=== PATIENT | female | born 1970 | race Caucasian/White ===

== ENCOUNTER → 2017-02-13 | Outpatient (CLI) | payer SELFPAY ==
--- NOTE | 2017-02-18 18:25 | Diagnostic Imaging Report ---
Bilateral screening mammogram The current study was also evaluated with a Computer Aided Detection (CAD) system. Indication: Screening. No current complaints stated on the questionnaire. COMPARISON: 01/18/2013. FINDINGS: The breasts are composed of scattered fibroglandular densities. There are scattered benign-appearing calcifications and oil cysts are seen slightly more prominent compared to the prior studies. No suspicious cluster of calcification. No developing mass or architectural distortion. IMPRESSION: Increasing benign-appearing calcifications. Annual screening mammogram recommended. ACR BI-RADS Category 2: Benign findings. Result letter will be mailed to the patient. Note: At least 10% of breast cancer is not imaged by mammography. Dictated by: Dictated on workstation # [id number]
== END ==
LOC: RAD 07:28
PROVIDERS: ATTEND Family Medicine
DX: Z12.31 Encounter for screening mammogram for malignant neoplasm of breast (principal)
CPT/HCPCS: 77067

== ENCOUNTER → 2017-03-17 | Outpatient (CLI) | payer BC ==
[2017-03-17 08:42] LABS: BASOPHILS % (AUTO) 0 % (0-10); EOSINOPHILS # (AUTO) 0.1 10^3/uL (0.0-0.3); EOSINOPHILS % (AUTO) 1 % (0-10); LYMPHOCYTES # (AUTO) 1.6 X 10^3 (1.0-4.0); LYMPHOCYTES % (AUTO) 37 % (12-44); MEAN CORPUSCULAR HEMOGLOBIN 30 PG (25-34); MEAN CORPUSCULAR HGB CONC 36 G/DL (32-36); MEAN CORPUSCULAR VOLUME 85 FL (80-99); MEAN PLATELET VOLUME 9.5 FL (7.4-10.4); MONOCYTES # (AUTO) 0.4 X 10^3 (0.0-1.0); MONOCYTES % (AUTO) 10 % (0-12); NEUTROPHILS # (AUTO) 2.3 X 10^3 (1.8-7.8); NEUTROPHILS % (AUTO) 52 % (42-75); PLATELET COUNT 282 10^3/uL (130-400); RED CELL DISTRIBUTION WIDTH 12.6 % (10.0-14.5); WHITE BLOOD COUNT 4.4 10^3/uL (4.3-11.0)
[2017-03-17 08:59] LABS: ALANINE AMINOTRANSFERASE 26 U/L (0-55); ALBUMIN 4.3 G/DL (3.2-4.5); ANION GAP 9 MMOL/L (5-14); ASPARTATE AMINO TRANSFERASE 17 U/L (5-34); BILIRUBIN,TOTAL 0.5 MG/DL (0.1-1.0); BLOOD UREA NITROGEN 16 MG/DL (7-18); BUN/CREATININE RATIO 18; CALCIUM 9.1 MG/DL (8.5-10.1); CARBON DIOXIDE 21 MMOL/L (21-32); CHLORIDE 111 MMOL/L (98-107); CHOLESTEROL 214 MG/DL (< 200); CREATININE SERUM 0.87 MG/DL (0.60-1.30); DIRECT LDL 120 MG/DL (1-129); GFR ESTIMATED > 60; GLUCOSE 122 MG/DL (70-105); POTASSIUM 3.9 MMOL/L (3.6-5.0); SODIUM 141 MMOL/L (135-145); TOTAL PROTEIN 7.3 G/DL (6.4-8.2); TRIGLYCERIDES 181 MG/DL (<150); VLDL CHOLESTEROL 36 MG/DL (5-40); hs C REACTIVE PROTEIN 0.06 MG/DL (0.00-0.50)
[2017-03-17 09:06] LABS: ERYTHROCYTE SEDIMENTATION RATE 8 MM/HR (0-20)
[2017-03-17 09:19] LABS: THYROID STIMULATING HORMONE 1.36 UIU/ML (0.35-4.94)
== END ==
LOC: LAB 08:25
PROVIDERS: ATTEND Nurse Practitioner Family
DX: Z00.00 Encounter for general adult medical examination without abnormal findings (principal); R22.1 Localized swelling, mass and lump, neck
CPT/HCPCS: 36415; 80053; 80061; 84443; 85025; 85652; 86141

== ENCOUNTER → 2017-09-01 | Outpatient (CLI) | payer BC ==
--- NOTE | 2017-09-01 15:33 | Diagnostic Imaging Report ---
INDICATION: Ballard splints. COMPARISON: None. FINDINGS: Four views of the left tibia and fibula show no fractures, dislocations, or other acute bony abnormalities identified. Joint spaces are well maintained throughout. The soft tissues appear unremarkable. No radiopaque foreign bodies are identified. IMPRESSION: No acute fractures or dislocations of the left tibia or fibula. Dictated by: Dictated on workstation # [id number]
== END ==
LOC: RAD 15:02
PROVIDERS: ATTEND Nurse Practitioner Family
DX: M79.662 Pain in left lower leg (principal)
CPT/HCPCS: 73590

== ENCOUNTER → 2017-09-10 | Outpatient (CLI) | payer BC ==
--- NOTE | 2017-09-10 15:39 | Diagnostic Imaging Report ---
EXAMINATION: Left lower extremity duplex venous ultrasound. TECHNIQUE: DVT protocol. Multiple sonographic images with color Doppler and waveform interrogation were performed of the left lower extremity veins with compression and augmentation maneuvers. INDICATION: Left leg swelling and pain. FINDINGS: The left lower extremity veins from the groin to below the knee veins were examined with normal color-flow, compressibility and waveform demonstrated. The great saphenous vein is patent. Images over the lower leg anteriorly at the area of swelling and pain demonstrate no definite abnormality. IMPRESSION: No evidence of DVT in the left lower extremity. Dictated by: Dictated on workstation # [id number]
== END ==
LOC: RAD 15:02
PROVIDERS: ATTEND Nurse Practitioner Family
DX: M79.89 Other specified soft tissue disorders (principal); M79.605 Pain in left leg

== ENCOUNTER → 2018-02-23 | Outpatient (CLI) | payer BC ==
[~2018-02-23] MED LIST: ALPR0.5T7; ESCI10TA55; HYDR-757 PO; METR500T21 PO; TOPI25TA10; ZOLP10TA5
[2018-02-23 06:52] LABS: BASOPHILS % (AUTO) 0 % (0-10); EOSINOPHILS # (AUTO) 0.1 10^3/uL (0.0-0.3); EOSINOPHILS % (AUTO) 2 % (0-10); HEMATOCRIT 37 % (35-52); HEMOGLOBIN 13.4 G/DL (11.5-16.0); LYMPHOCYTES # (AUTO) 1.4 X 10^3 (1.0-4.0); LYMPHOCYTES % (AUTO) 36 % (12-44); MEAN CORPUSCULAR HEMOGLOBIN 31 PG (25-34); MEAN CORPUSCULAR HGB CONC 36 G/DL (32-36); MEAN CORPUSCULAR VOLUME 84 FL (80-99); MEAN PLATELET VOLUME 9.6 FL (7.4-10.4); MONOCYTES # (AUTO) 0.4 X 10^3 (0.0-1.0); MONOCYTES % (AUTO) 9 % (0-12); NEUTROPHILS # (AUTO) 2.1 X 10^3 (1.8-7.8); NEUTROPHILS % (AUTO) 53 % (42-75); PLATELET COUNT 283 10^3/uL (130-400); WHITE BLOOD COUNT 3.9 10^3/uL (4.3-11.0)
== END ==
LOC: LAB 06:34
PROVIDERS: ATTEND Nurse Practitioner Family
DX: N92.0 Excessive and frequent menstruation with regular cycle (principal)
CPT/HCPCS: 36415; 85025

== ENCOUNTER → 2018-03-01 | Outpatient (CLI) | payer BC ==
--- NOTE | 2018-03-01 17:10 | Diagnostic Imaging Report ---
EXAMINATION: Ultrasound pelvis. DATE: March 01, 2018. INDICATION: 47-year-old female, menorrhagia. COMPARISON: None. TECHNIQUE: A sonogram of the pelvis was performed utilizing transabdominal and endovaginal approaches assessing grayscale appearance and color Doppler flow. FINDINGS: The uterus measures 9.6 x 6.0 x 4.9 cm. No focal uterine masses are seen. The endometrium measures 1.4 cm in diameter. The right and left ovaries are not well seen. There is no demonstrated adnexal mass. No free pelvic fluid is demonstrated. IMPRESSION: 1. Endometrial thickness measuring 14 mm. Recommend correlation with timing of menstrual cycle. 2. The right and left ovaries are not well seen. 3. No demonstrated adnexal mass. 4. No free pelvic fluid. Dictated by: Dictated on workstation # [id number]
== END ==
LOC: RAD 15:34
PROVIDERS: ATTEND Nurse Practitioner Family
DX: N92.1 Excessive and frequent menstruation with irregular cycle (principal); R93.8 Abnormal findings on diagnostic imaging of other specified body structures
CPT/HCPCS: 36415; 76830; 76856; 84443

== ENCOUNTER 2018-03-18 10:16 | Emergency (ER) | payer BC ==
[~2018-03-18] VITALS: Ht 170.2 cm; Wt 95.3 kg
[2018-03-18] MEDS ORDERED: ALPR0.5T7 (10:39)
[2018-03-18] MEDS ORDERED: ESCI10TA55 (10:39)
[2018-03-18] MEDS ORDERED: TOPI25TA10 (10:39)
[2018-03-18] MEDS ORDERED: ZOLP10TA5 (10:39)
[2018-03-18 10:41] LABS: BILIRUBIN,URINE NEGATIVE (NEGATIVE); COLOR,URINE YELLOW; GLUCOSE, URINE (UA) NEGATIVE (NEGATIVE); KETONES,URINE NEGATIVE (NEGATIVE); LEUKOCYTE ESTERASE ,URINE 3+ (NEGATIVE); NITRITE,URINE NEGATIVE (NEGATIVE); PH,URINE 6.5 (5-9); PROTEIN,URINE NEGATIVE (NEGATIVE); UROBILINOGEN,URINE NORMAL (NORMAL)
[2018-03-18 10:50] LABS: BACTERIA,URINE FEW /HPF; CLARITY,URINE CLEAR; TRICHOMONAS,URINE FEW /HPF
--- NOTE | 2018-03-18 10:54 | ED Back Pain ---
General Chief Complaint: Back Problems Stated Complaint: LEFT FLANK PAIN Nursing Triage Note: ARRIVED VIA AMB TO ROOM 10. COMPLAINS OF LEFT LOWER BACK PAIN SINCE 0800. THINKS IT IS A KIDNEY ISSUE. 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 Nursing Sepsis Screen: No Definite Risk Source of Information: Patient Exam Limitations: No Limitations History of Present Illness Date Seen by Provider: Mar 18, 2018 Time Seen by Provider: 10:53 Initial Comments to ER with reports a sudden onset left low back pa 9 AM this morning.she is unable to lay flat due to the pain. She took ibuprofen about 45 minutes prior to arrival with no relief.she's never had this before. She states it hurts worse to take a deep breath. Location: Paraspinous Muscles Timing/Duration: 4-6 Hours Severity: Moderate Associated Symptoms: lower back pain Allergies and Home Medications Allergies Uncoded Allergies: NOVACAINE (Allergy, Mild, 02/07/12) NOT TO TAKE BECAUSE OF VSD Home Medications Hydrocodone/Acetaminophen 1 Each Tablet, 1 EACH PO Q4H PRN for PAIN-MILD TO MODERATE Prescribed by: DAVY MORA on 03/18/18 1157 Metronidazole 500 Mg Tablet, 500 MG PO BID Prescribed by: DAVY MORA on 03/18/18 1157 Patient Home Medication List Home Medication List Reviewed: Yes Constitutional: see HPI EENTM: see HPI Respiratory: no symptoms reported Cardiovascular: no symptoms reported Genitourinary: no symptoms reported Musculoskeletal: see HPI, back pain Skin: no symptoms reported Psychiatric/Neurological: No Symptoms Reported Past Cdjckft-Smffhk-Oyvxww Hx Patient Social History Alcohol Use: Denies Use Recreational Drug Use: No Smoking Status: Never a Smoker Recent Foreign Travel: No Contact w/Someone Who Travel: No Recent Infectious Disease Expo: No Recent Hopitalizations: No Past Medical History Appendectomy Respiratory: No 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) Genitourinary: No Gastrointestinal: No Musculoskeletal: No Endocrine: No HEENT: No Cancer: No Psychosocial: No Integumentary: No Physical Exam Vital Signs Vital Signs - First Documented 03/18/18 10:25 Temp 98.0 Pulse 65 Resp 18 B/P (MAP) 190/97 (128) Capillary Refill : Less Than 3 Seconds General Appearance: No Apparent Distress, WD/WN HEENT: PERRL/EOMI, TMs Normal Neck: Full Range of Motion, Normal Inspection Respiratory: Normal Breath Sounds, No Accessory Muscle Use, No Respiratory Distress Gastrointestinal: Normal Bowel Sounds, Non Tender, Soft Back: Normal Inspection Extremity: Normal Capillary Refill, Normal Inspection Neurologic/Psychiatric: Alert, Oriented x3, No Motor/Sensory Deficits Skin: Normal Color, Warm/Dry Progress/Results/Core Measures Results/Orders Lab Results Laboratory Tests Test 03/18/18 10:35 Range/Units Urine Color YELLOW Urine Clarity CLEAR Urine pH 6.5 5-9 Urine Specific [place] 1.015 L 1.016-1.022 Urine Protein NEGATIVE NEGATIVE Urine Glucose (UA) NEGATIVE NEGATIVE Urine Ketones NEGATIVE NEGATIVE Urine Nitrite NEGATIVE NEGATIVE Urine Bilirubin NEGATIVE NEGATIVE Urine Urobilinogen NORMAL NORMAL MG/DL Urine Leukocyte Esterase 3+ H NEGATIVE Urine RBC (Auto) NEGATIVE NEGATIVE Urine RBC NONE /HPF Urine WBC 2-5 /HPF Urine Squamous Epithelial Cells 10-25 H /HPF Urine Crystals NONE /LPF Urine Bacteria FEW H /HPF Urine Casts NONE /LPF Urine Mucus NEGATIVE /LPF Urine Trichomonas FEW H /HPF Urine Culture Indicated NO Urine Test NEGATIVE NEGATIVE My Orders Orders - DAVY MORA APRN Ct Abd/Pelvis Wo(Kidney Stone) (03/18/18 10:50) Ketorolac Injection (Toradol Injection) (03/18/18 11:00) Orphenadrine Injection (Norflex Injectio (03/18/18 11:00) Hcg,Qualitative Urine (03/18/18 11:00) Medications Given in ED Current Medications Medications Dose Ordered Sig/Evert Route Start Time Stop Time Status Last Admin Dose Admin Ketorolac Tromethamine 60 mg ONCE ONCE IM 03/18/18 11:00 03/18/18 11:01 DC 03/18/18 11:00 60 MG Orphenadrine Citrate 30 mg ONCE ONCE IM 03/18/18 11:00 03/18/18 11:01 DC 03/18/18 11:00 30 MG Vital Signs/I&O 03/18/18 10:25 Temp 98.0 Pulse 65 Resp 18 B/P (MAP) 190/97 (128) Blood Pressure Mean: 128 Diagnostic Imaging Diagonstic Imaging: CT Comments NAME: WANDY RHOADES Viji MED REC#: [id number] PT STATUS: REG ER : 1970 PHYSICIAN: DAVY MORA APRN ADMIT DATE: 03/18/18/ER Draft Date of Exam:03/18/18 CT ABD/PELVIS WO(KIDNEY STONE) PROCEDURE: CT urinary tract, rule out kidney stone. TECHNIQUE: Multiple contiguous axial images were obtained through the abdomen and pelvis without the use of intravenous contrast. INDICATION: Left flank pain. There are no prior studies available for comparison. There is no evidence for nephrolithiasis or urolithiasis and the kidneys do not seem to be obstructed. However the left renal pelvis is slightly more prominent than the right. The reason for this is not certain. This could be a developmental variant. The possibility that there has been a recent passage of a minute calculus from the left collecting system should be considered. The urinary bladder is grossly unremarkable. The uterus is prominent. The urinary bladder is grossly unremarkable. There is a surgical clip interposed between the anterior aspect of the uterus and the bladder. There is another surgical clip along the anterior aspect of the rectum. These Surgiclips are of uncertain etiology but appear to represent tubal ligation clips. They do not seem to be in close proximity to either ovary. Correlation with the patient's surgical history would be recommended. The appendix was not well-visualized but there are no indirect signs of acute appendicitis. There may be a few diverticula in the sigmoid and descending colon but there is no evidence for acute diverticulitis. There is no pelvic mass or free fluid collection evident. There are two vague areas of slightly increased density in the subcutaneous fat along the posterior aspect of the iliac crests. These findings are of uncertain etiology. There is suggestion of a few droplets of gas in the area on the right. Correlation with the patient's history of any recent injection would be recommended. The liver does not appear to be enlarged. There is a well-circumscribed 3.6 cm rounded area of low density in the left lobe of the liver. Most likely this is a cyst. Spleen, pancreas, adrenals, gallbladder, aorta and inferior vena cava show no sign of an acute abnormality. The stomach is not well-distended and consequently difficult to assess. The lung bases show mild atelectasis/scar formation in the right middle lobe. The lungs are otherwise generally clear. The bone windows show no sign of a fracture or destructive lesion. IMPRESSION: 1. The left renal pelvis is slightly dilated compared to the right but there is no sign of an obstructive calculus. Clinical followup is recommended. 2. There is no acute abnormality of the abdomen and pelvis otherwise. 3. There are Surgiclips in the pelvis. These are of uncertain etiology. Correlation with the patient's surgical history would be recommended. 4. There is mild right middle lobe atelectasis/scar formation. These results were discussed with Davy Mora APRN. Dictated on workstation # [id number] Dict: 03/18/18 1134 Trans: 03/18/18 1200 CVB [id number] Interpreted by: LATOYA SANDERS MD Electronically signed by: Departure Communication (Admissions) [id number]- no real improvement in pain after the Toradol/Norflex. I'll prescribe metronidazole 500 mg twice a day for 7 days for the trichomoniasis. Given a short course of hydrocodone for pain as I do believe this pain to be musculoskeletal. There is no hematuria, no ureteral stone or hydronephrosis Impression Primary Impression: Left flank pain Disposition: HOME, SELF-CARE Condition: Stable Departure-Patient Inst. Decision time for Depature: 11:55 Referrals: TERESSA ROJAS MD (PCP/Family) Primary Care Physician Patient Instructions: Lumbar Muscle Strain (DC) Add. Discharge Instructions: 1. Antibiotics as directed 2. Warm compresses to your back. Pain medication as directed.follow-up with Dr. Rojas next week for recheck. Scripts Metronidazole (Metronidazole) 500 Mg Tablet 500 MG PO BID, #14 TAB Prov: DAVY MORA APRN 03/18/18 Hydrocodone/Acetaminophen (Bolivar 5-325 Tablet) 1 Each Tablet 1 EACH PO Q4H PRN for PAIN-MILD TO MODERATE, #10 TAB Prov: DAVY MORA APRN 03/18/18 Work/School Note: Work Release Form Date Seen in the Emergency Department: Mar 18, 2018 Return to Work: Mar 19, 2018 Images Torso/Trunk 1 - Tenderness Copy Copies To 1: TERESSA ROJAS MD, PETER J APRN Mar 18, 2018 10:54
[2018-03-18] MEDS ORDERED: KETOROLAC 60 MG/2 ML VIAL IM ONE (11:00)
[2018-03-18] MEDS ORDERED: ORPHENADRINE 60 MG/2 ML (NORFLEX) AMP IM ONE (11:00)
[2018-03-18] MEDS ORDERED: METR500T21 PO (11:57)
[2018-03-18] MEDS ORDERED: HYDR-757 PO (11:57)
--- NOTE | 2018-03-18 12:00 | Diagnostic Imaging Report ---
PROCEDURE: CT urinary tract, rule out kidney stone. TECHNIQUE: Multiple contiguous axial images were obtained through the abdomen and pelvis without the use of intravenous contrast. INDICATION: Left flank pain. There are no prior studies available for comparison. There is no evidence for nephrolithiasis or urolithiasis and the kidneys do not seem to be obstructed. However the left renal pelvis is slightly more prominent than the right. The reason for this is not certain. This could be a developmental variant. The possibility that there has been a recent passage of a minute calculus from the left collecting system should be considered. The urinary bladder is grossly unremarkable. The uterus is prominent. The urinary bladder is grossly unremarkable. There is a surgical clip interposed between the anterior aspect of the uterus and the bladder. There is another surgical clip along the anterior aspect of the rectum. These Surgiclips are of uncertain etiology but appear to represent tubal ligation clips. They do not seem to be in close proximity to either ovary. Correlation with the patient's surgical history would be recommended. The appendix was not well-visualized but there are no indirect signs of acute appendicitis. There may be a few diverticula in the sigmoid and descending colon but there is no evidence for acute diverticulitis. There is no pelvic mass or free fluid collection evident. There are two vague areas of slightly increased density in the subcutaneous fat along the posterior aspect of the iliac crests. These findings are of uncertain etiology. There is suggestion of a few droplets of gas in the area on the right. Correlation with the patient's history of any recent injection would be recommended. The liver does not appear to be enlarged. There is a well-circumscribed 3.6 cm rounded area of low density in the left lobe of the liver. Most likely this is a cyst. Spleen, pancreas, adrenals, gallbladder, aorta and inferior vena cava show no sign of an acute abnormality. The stomach is not well-distended and consequently difficult to assess. The lung bases show mild atelectasis/scar formation in the right middle lobe. The lungs are otherwise generally clear. The bone windows show no sign of a fracture or destructive lesion. IMPRESSION: 1. The left renal pelvis is slightly dilated compared to the right but there is no sign of an obstructive calculus. Clinical followup is recommended. 2. There is no acute abnormality of the abdomen and pelvis otherwise. 3. There are surgical clips in the pelvis. These are of uncertain etiology. Correlation with the patient's surgical history would be recommended. 4. There is mild right middle lobe atelectasis/scar formation. These results were discussed with Stefano Mora APRN. Dictated by: Dictated on workstation # [id number]
[2018-03-18] MEDS ORDERED: HYDROcodone/APAP 5 MG/325 MG (LORTAB) TAB PO ONE (12:15)
[2018-03-18 12:16] VITALS: BP 149/97
== END 2018-03-18 12:16 | disposition home or self-care (01) ==
LOC: EDUNIT# 10:16 → ER 10:18
DX: R10.32 Left lower quadrant pain (principal); Z88.4 Allergy status to anesthetic agent
CPT/HCPCS: 74176; 81000; 84703; 96372

== ENCOUNTER 2018-04-15 08:12 | Day surgery (SDC) | payer BC ==
[~2018-04-15] VITALS: Ht 170.2 cm; Wt 95.3 kg
[~2018-04-15 08:12] MED LIST changes: -ALPR0.5T7; +ALPR0.5T7 PO; -ESCI10TA55; +ESCI10TA55 PO; +ZOLP10TA5 PO
[2018-04-15] MEDS ORDERED: LACTATED RINGERS 1,000 ML IV PRN (08:16)
[2018-04-15 08:55] VITALS: BP 136/87
[2018-04-15] MEDS ORDERED: BUPIVACAINE 0.25% 30 ML (SENSORCAINE) VIAL ONE (09:14)
--- NOTE | 2018-04-15 09:16 | Progress Note-Pre Operative ---
Pre-Operative Progress Note H&P Reviewed The H&P was reviewed, patient examined and no changes noted. Date Seen by Provider: Apr 15, 2018 Time Seen by Provider: 09:00 Date H&P Reviewed: Apr 15, 2018 Time H&P Reviewed: 09:00 Pre-Operative Diagnosis: AUB, BMI 32 DEJUAN SANTOS DO Apr 15, 2018 9:16 am
--- NOTE | 2018-04-15 09:20 | Discharge Inst-Women's Service ---
Discharge Inst-Women's Serv Depart Medication/Instructions New, Converted or Re-Newed RX: RX on Chart Consults/Follow Up Additional Follow Up: Yes Orders/Referrals Dr. Santos in 2-3 weeks Activity Activity: Activity as Tolerated Driving Instructions: No Driving for 1 Week NO SMOKING: NO SMOKING Nothing Inside Vagina: No Douching, No [place], No Tampons Diet Discharge Diet: No Restrictions Symptoms to Report to : Bleeding Excessive, Pain Increased, Fever Over 101 Degrees F, Vaginal Bleeding Increase, Questions/Concerns For Any Problems or Questions: Contact Your Physician DEJUAN SANTOS DO Apr 15, 2018 9:20 am
[2018-04-15] MEDS ORDERED: IBUP-1773 PO (09:21)
[2018-04-15] MEDS ORDERED: HYDR-757 PO (09:21)
[2018-04-15] MEDS ORDERED: D5 LR IV SOLUTION 1,000 ML IV SCH (09:22)
[2018-04-15] MEDS ORDERED: fentaNYL INJECTION 100 MCG/2 ML AMP ONE (09:27)
[2018-04-15] MEDS ORDERED: MIDAZOLAM 2 MG/2 ML (VERSED) VIAL ONE (09:27)
[2018-04-15] MEDS ORDERED: DEXAMETHASONE 10 MG/ML (DECADRON) 1 ML VIAL ONE (09:28)
[2018-04-15] MEDS ORDERED: ONDANSETRON 4 MG/2 ML (SDV) Z0FRAN ONE (09:28)
[2018-04-15] MEDS ORDERED: proPOfol 200 MG/20 ML (DIPRIVAN) VIAL IV ONE (09:28)
[2018-04-15] MEDS ORDERED: LIDOCAINE PF 2% 5 ML (XYLOCAINE) VIAL ONE (09:28)
[2018-04-15] MEDS ORDERED: SEVOFLURANE (ULTANE) 15 ML INHAL SOLN ONE (09:28)
[2018-04-15] MEDS ORDERED: ONDANSETRON 4 MG/2 ML (SDV) Z0FRAN IVP PRN ×2 (09:30→10:30)
[2018-04-15] MEDS ORDERED: KETOROLAC 30 MG/ML VIAL IVP ONE (09:30)
[2018-04-15] MEDS ORDERED: HYDROcodone/APAP 5 MG/325 MG (LORTAB) TAB PO PRN (09:30)
[2018-04-15 09:53] LABS: BASOPHILS % (AUTO) 0 % (0-10); EOSINOPHILS # (AUTO) 0.1 10^3/uL (0.0-0.3); EOSINOPHILS % (AUTO) 3 % (0-10); HEMATOCRIT 36 % (35-52); HEMOGLOBIN 12.9 G/DL (11.5-16.0); LYMPHOCYTES # (AUTO) 1.3 X 10^3 (1.0-4.0); LYMPHOCYTES % (AUTO) 32 % (12-44); MEAN CORPUSCULAR HEMOGLOBIN 31 PG (25-34); MEAN CORPUSCULAR HGB CONC 36 G/DL (32-36); MEAN CORPUSCULAR VOLUME 86 FL (80-99); MONOCYTES # (AUTO) 0.4 X 10^3 (0.0-1.0); MONOCYTES % (AUTO) 10 % (0-12); NEUTROPHILS # (AUTO) 2.2 X 10^3 (1.8-7.8); NEUTROPHILS % (AUTO) 56 % (42-75); PLATELET COUNT 240 10^3/uL (130-400); RED BLOOD COUNT 4.22 10^6/uL (4.35-5.85); RED CELL DISTRIBUTION WIDTH 13.5 % (10.0-14.5)
[2018-04-15] MEDS ORDERED: morphine INJ 10 MG/ML 1ML (SYR OR VIAL) ONE (10:29)
[2018-04-15] MEDS: morphine INJ 10 MG/ML 1ML (SYR OR VIAL) IVP PRN ×3 (10:32→10:45)
[2018-04-15 11:20] VITALS: BP 138/88
[2018-04-15] MEDS ORDERED: HYDROcodone/APAP 5 MG/325 MG (LORTAB) TAB ONE (11:49)
[2018-04-15 11:50] VITALS: BP 127/81
[2018-04-15 12:20] VITALS: BP 112/81
--- NOTE | 2018-04-15 14:07 | Anesthesia-General Post-Op ---
General Patient Condition Mental Status/LOC: Same as Preop Cardiovascular: Satisfactory Nausea/Vomiting: Absent Respiratory: Satisfactory Pain: Controlled Complications: Absent Post Op Complications Complications None Follow Up Care/Instructions Patient Instructions None needed. Anesthesia/Patient Condition Patient Condition Patient is doing well, no complaints, stable vital signs, no apparent adverse anesthesia problems. No complications reported per nursing. D/C home per [facility] [place] Criteria: No SAMMIE MAYS CRNA Apr 15, 2018 14:07
--- NOTE | 2018-04-15 19:49 | OPERATIVE REPORT ---
DATE OF SERVICE: PREOPERATIVE DIAGNOSES: 1. A 48-year-old female with heavy uterine bleeding. 2. Body mass index greater than 30. POSTOPERATIVE DIAGNOSES: 1. A 48-year-old female with heavy uterine bleeding. 2. Body mass index greater than 30. PROCEDURE PERFORMED: D and C hysteroscopy with hysteroscopic resection of endometrial polyp. SURGEON: Dejuan Santos DO ANESTHESIA: General endotracheal. ESTIMATED BLOOD LOSS: Minimal. URINE OUTPUT: 100 mL clear drained prior to the start of the procedure. FLUIDS: 400 mL lactated Ringer solution. FINDINGS: Grade II to grade III cystocele and grade III rectocele. Grossly normal appearing cervix and external female genitalia. An anterior uterine wall endometrial polyp, grossly normal appearing intrauterine cavity otherwise. SPECIMENS SENT: Endometrial polyp as well as endometrial curettings. INDICATIONS FOR PROCEDURE: This 48-year-old female was a consultation in my office for history of abnormal bleeding. She was wanting to proceed with more definitive measures in the form of hysterectomy. However, after further evaluating the patient, she had not had any endometrial sampling done and also had a significant degree of prolapse, which we did not evaluate prior to this procedure, but the patient discussed the pressure in the pelvis. I discussed with the patient performing an office endometrial biopsy versus proceeding with D and C, which could be both curative and diagnostic to try to attempt avoiding major surgery and hysterectomy. She wished to proceed with D and C hysteroscopy. Risks of procedure were discussed with the patient in detail including risks of bleeding, infection, damage to surrounding structures including but not limited to bowel, bladder, ureter, kidneys, pre and postoperative expectations, recovery expectations, risk from anesthesia and even were all discussed with the patient. After all of her questions were answered, consent was obtained in preoperative area and the patient was taken to the operating room. OPERATIVE REPORT IN DETAIL: Once in the operating room, general anesthesia was found to be adequate, placed in dorsal lithotomy position, prepped and draped in normal sterile fashion. The bladder was drained using straight catheterization. A weighted speculum was inserted in the patient's vagina. A right angle retractor was used to visualize the cervix, which was grasped at 12 o'clock position using a long Allis clamp and I then performed a paracervical block at 3 and 9 o'clock positions on the cervix using 6 mL of 0.25% Marcaine at each injection site. I did take care to aspirate before injecting. After this was done, I gently sound the uterine cavity depth, which was found to be 8 cm. I then gently dilated the cervix using Karuna dilators to maximum dilatation of 8 mm. I then advanced an 8 mm hysteroscope into the uterus through the cervix and using TrNavut fluid management system and normal saline as my visual medium, I was able to evaluate the intrauterine cavity as described in my findings above. I then performed a hysteroscopic resection using the resectoscope tool resecting the polyp off of the uterine wall, after which was a smooth uterine wall noted, which was documented with photo documentation both pre and post-removal. After this was done, I removed the hysteroscope and performed a gentle curettage of the remaining endometrial tissue. A scant amount was collected and sent for endometrial curettings as the pathology, after which there was no active bleeding noted from my dissection planes. I removed all the instruments from the patient's vagina. The patient tolerated the procedure well and sent to recovery area in stable condition. Lap and sponge counts were correct at the end of the procedure. Instrument counts were correct as well. Job ID: [id number] DocumentID: [id number] Dictated Date: 04/15/2018 10:27:30 Ethernet Network Architect Date: 04/15/2018 19:48:40 Dictated By: DEJUAN SANTOS DO
== END 2018-04-15 12:27 | disposition home or self-care (01) ==
LOC: SDC 08:12
PROVIDERS: ATTEND Obstetrics & Gynecology
DX: N93.8 Other specified abnormal uterine and vaginal bleeding (principal); N81.10 Cystocele, unspecified; N81.6 Rectocele; N84.0 Polyp of corpus uteri; E66.9 Obesity, unspecified; Z68.32 Body mass index [BMI] 32.0-32.9, adult
CPT/HCPCS: 36415; 84703; 85025; 86850; 86900; 86901; 87081; 88305; 94664

== ENCOUNTER → 2018-11-03 | Outpatient (CLI) | payer OTHER ==
[~2018-11-03] MED LIST changes: +HYDR-4226 PO; -HYDR-757 PO; +IBUP-1773 PO; +METR-145 PO; -METR500T21 PO
[2018-11-03 07:37] LABS: BASOPHILS % (AUTO) 0 % (0-10); EOSINOPHILS # (AUTO) 0.1 10^3/uL (0.0-0.3); EOSINOPHILS % (AUTO) 2 % (0-10); HEMATOCRIT 41 % (35-52); HEMOGLOBIN 14.4 G/DL (11.5-16.0); LYMPHOCYTES # (AUTO) 1.6 X 10^3 (1.0-4.0); LYMPHOCYTES % (AUTO) 35 % (12-44); MEAN CORPUSCULAR HEMOGLOBIN 30 PG (25-34); MEAN CORPUSCULAR HGB CONC 35 G/DL (32-36); MEAN CORPUSCULAR VOLUME 85 FL (80-99); MEAN PLATELET VOLUME 9.6 FL (7.4-10.4); MONOCYTES # (AUTO) 0.5 X 10^3 (0.0-1.0); MONOCYTES % (AUTO) 10 % (0-12); NEUTROPHILS # (AUTO) 2.5 X 10^3 (1.8-7.8); NEUTROPHILS % (AUTO) 53 % (42-75); PLATELET COUNT 291 10^3/uL (130-400); RED BLOOD COUNT 4.77 10^6/uL (4.35-5.85); WHITE BLOOD COUNT 4.7 10^3/uL (4.3-11.0)
[2018-11-03 08:02] LABS: ALANINE AMINOTRANSFERASE 33 U/L (0-55); ALBUMIN 4.3 GM/DL (3.2-4.5); ALKALINE PHOSPHATASE 77 U/L (40-136); BILIRUBIN,TOTAL 0.5 MG/DL (0.1-1.0); BUN/CREATININE RATIO 16; CALCIUM 8.8 MG/DL (8.5-10.1); CARBON DIOXIDE 19 MMOL/L (21-32); CHLORIDE 111 MMOL/L (98-107); CHOLESTEROL 208 MG/DL (< 200); CREATININE SERUM 0.79 MG/DL (0.60-1.30); GFR ESTIMATED > 60; GLUCOSE 123 MG/DL (70-105); HDL CHOLESTEROL 35 MG/DL (40-60); POTASSIUM 3.9 MMOL/L (3.6-5.0); SODIUM 137 MMOL/L (135-145); TOTAL PROTEIN 7.1 GM/DL (6.4-8.2); TRIGLYCERIDES 242 MG/DL (<150); VLDL CHOLESTEROL 48 MG/DL (5-40)
== END ==
LOC: LAB 07:23
PROVIDERS: ATTEND Family Medicine
DX: Z00.00 Encounter for general adult medical examination without abnormal findings (principal); R73.01 Impaired fasting glucose; Z79.899 Other long term (current) drug therapy
CPT/HCPCS: 36415; 80053; 80061; 83036; 84443; 85025

== ENCOUNTER 2019-02-22 11:26 | Outpatient (CLI) | payer OTHER ==
[~2019-02-22] VITALS: Ht 170.2 cm; Wt 100.2 kg
[~2019-02-22 11:26] MED LIST changes: -TOPI25TA10; +TOPI25TA10 PO
[2019-02-22] MEDS ORDERED: ATOR10TA66 PO (11:42)
[2019-02-22] MEDS ORDERED: AMIT25TA9 PO (11:42)
[2019-02-22 12:08] VITALS: BP 127/88
[2019-02-22] MEDS ORDERED: AMIT50TA3 PO (12:47)
[2019-02-22] MEDS ORDERED: ATOR20TA66 PO (12:47)
== END 2019-02-22 12:15 | disposition home or self-care (01) ==
LOC: PREOP 11:26
PROVIDERS: ATTEND Obstetrics & Gynecology
DX: Z01.818 Encounter for other preprocedural examination (principal)
CPT/HCPCS: 87081

== ENCOUNTER 2019-03-03 06:05 | Day surgery (SDC) | payer OTHER ==
[2019-03-03] VITALS (12 sets, daily range): BP systolic 100–117; BP diastolic 65–81
[~2019-03-03] VITALS: Ht 170.2 cm; Wt 100.2 kg
[~2019-03-03 06:05] MED LIST changes: +AMIT25TA9 PO; +AMIT50TA3 PO; +ATOR10TA66 PO; +ATOR20TA66 PO
[2019-03-03] MEDS ORDERED: LACTATED RINGERS 1,000 ML IV ONE (06:17)
--- OUTSIDE RECORDS SUMMARY | 2019-03-03 06:26 | XMS REPORT | CCD ---
Author Author [facility]ca [facility] Organization [facility] Address [address] [place] [address] Phone Care Team Providers Care Paint Supervisor Name Role Phone Bianca Jain PP Unavailable CCM Unavailable Summary Purpose Interface Exchange Insurance Providers Payer name Policy type / Coverage type Covered green party ID Effective Begin Date Effective End Date [employer] [id number] 2018 Unknown Family history Brother Diagnosis Age At Onset No Family Disease Entered N/A Daughter Diagnosis Age At Onset No Family Disease Entered N/A Son Diagnosis Age At Onset No Family Disease Entered N/A Daughter Diagnosis Age At Onset No Family Disease Entered N/A Son Diagnosis Age At Onset No Family Disease Entered N/A Mother Diagnosis Age At Onset No Family Disease Entered N/A Father Diagnosis Age At Onset No Family Disease Entered N/A Brother Diagnosis Age At Onset No Family Disease Entered N/A Social History Social History Element Codes Description Effective Dates Employment Unknown Currently employed Via [employer] 11/15/2018 Marital status Unknown 01/05/[address]: 227685522 Never smoker 09/29/[address]: 439417 Currently drinks alcohol 3 weekly 09/29/2011 Has the patient ever used illegal drugs? Unknown Has never used illegal drugs 09/29/2011 Allergies, Adverse Reactions, Alerts Substance Reaction Codes Entered Date Inactivated Date Status * NO KNOWN DRUG ALLERGIES Unknown 09/29/2011 No Inactive Date Active Past Medical History Illness Codes Condition Status Onset Date Resolved Date Encounter for general adult medical examination without abnormal findings ICD-9: V70.0 ICD-10: Z00.00 Active 10/26/2018 Unknown Abnormal uterine and vaginal bleeding, unspecified ICD-9: 623.8 ICD-10: N93.9 Active 02/22/2018 Unknown Excessive and frequent menstruation with regular cycle ICD-9: 626.2 ICD-10: N92.0 Active 02/22/2018 Unknown Gastro-esophageal reflux disease with esophagitis ICD-9: 530.11 ICD-10: K21.0 Active 01/21/2018 Unknown Pain in left leg ICD-9: 729.5 ICD-10: M79.605 Active 09/01/2017 Unknown Generalized anxiety disorder ICD-9: 300.02 ICD-10: F41.1 Active 09/29/2011 Unknown Pain in left shoulder ICD- 9: 719.41 ICD-10: M25.512 Active 02/19/2017 Unknown Pain in right shoulder ICD-9: 719.41 ICD-10: M25.511 Active 02/19/2017 Unknown Encounter for gynecological examination (general) (routine) without abnormal findings ICD-9: V72.31 ICD-10: Z01.419 Active 02/05/2017 Unknown Other obesity due to excess calories ICD-9: 278.00 ICD-10: E66.09 Active 09/25/2016 Unknown Adjustment insomnia ICD- 9: 307.41 ICD-10: F51.02 Active 08/24/2016 Unknown Dizziness and giddiness ICD-9: 780.4 ICD-10: R42 Active 12/12/2015 Unknown Other chest pain ICD-9: 786.59 ICD-10: R07.89 Active 11/14/2015 Unknown GENERALIZED ANXIETY DISEASE ICD-9: 300.02 Active 09/29/2011 Unknown Migraines ICD-9: 346.90 Active 06/27/2015 Unknown Right ankle pain ICD-9: 719.47 Active 05/23/2014 Unknown Right ankle sprain ICD- 9: 845.00 Active 05/23/2014 Unknown Laboratory exam ordered as part of routine general medical examination ICD-9: V72.62 Active 04/24/2014 Unknown ROUTINE GYNE EXAM ICD-9: V72.31 Active 04/24/2014 Unknown Myalgia ICD-9: 729.1 Active 02/16/2012 Unknown Numbness in both legs ICD- 9: 782.0 Active 02/16/2012 Unknown Skin lesion of breast ICD- 9: 611.9 Active 01/05/2012 Unknown Vaginal discharge ICD-9: 623.5 Active 01/05/2012 Unknown Acute maxillary sinusitis ICD-9: 461.0 Active 11/13/2011 Unknown Cerumen impaction ICD-9: 380.4 Active 11/13/2011 Unknown Cough ICD-9: 786.2 Active 11/13/2011 Unknown Anxiety Unknown Active 09/29/2011 Unknown Depression Unknown Active 09/29/2011 Unknown Ventricular septal defect (VSD) Unknown Active 09/29/2011 Unknown HEARING LOSS ICD-9: 389.9 Active 09/29/2011 Unknown Problems Condition Codes Effective Dates Condition Status Encounter for general adult medical examination without abnormal findings ICD-9: V70.0 ICD-10: Z00.00 10/26/2018 Active Abnormal uterine and vaginal bleeding, unspecified ICD-9: 623.8 ICD-10: N93.9 02/22/2018 Active Excessive and frequent menstruation with regular cycle ICD-9: 626.2 ICD-10: N92.0 02/22/2018 Active Gastro-esophageal reflux disease with esophagitis ICD-9: 530.11 ICD-10: K21.0 01/21/2018 Active Pain in left leg ICD-9: 729.5 ICD-10: M79.605 09/01/2017 Active Generalized anxiety disorder ICD-9: 300.02 ICD-10: F41.1 09/29/2011 Active Pain in left shoulder ICD- 9: 719.41 ICD-10: M25.512 02/19/2017 Active Pain in right shoulder ICD-9: 719.41 ICD-10: M25.511 02/19/2017 Active Encounter for gynecological examination (general) (routine) without abnormal findings ICD-9: V72.31 ICD-10: Z01.419 02/05/2017 Active Other obesity due to excess calories ICD-9: 278.00 ICD-10: E66.09 09/25/2016 Active Adjustment insomnia ICD- 9: 307.41 ICD-10: F51.02 08/24/2016 Active Dizziness and giddiness ICD-9: 780.4 ICD-10: R42 12/12/2015 Active Other chest pain ICD-9: 786.59 ICD-10: R07.89 11/14/2015 Active GENERALIZED ANXIETY DISEASE ICD-9: 300.02 09/29/2011 Active Migraines ICD-9: 346.90 06/27/2015 Active Right ankle pain ICD-9: 719.47 05/23/2014 Active Right ankle sprain ICD- 9: 845.00 05/23/2014 Active Laboratory exam ordered as part of routine general medical examination ICD-9: V72.62 04/24/2014 Active ROUTINE GYNE EXAM ICD-9: V72.31 04/24/2014 Active Myalgia ICD-9: 729.1 02/16/2012 Active Numbness in both legs ICD- 9: 782.0 02/16/2012 Active Skin lesion of breast ICD- 9: 611.9 01/05/2012 Active Vaginal discharge ICD-9: 623.5 01/05/2012 Active Acute maxillary sinusitis ICD-9: 461.0 11/13/2011 Active Cerumen impaction ICD-9: 380.4 11/13/2011 Active Cough ICD-9: 786.2 11/13/2011 Active Anxiety Unknown 09/29/2011 Active Depression Unknown 09/29/2011 Active Ventricular septal defect (VSD) Unknown 09/29/2011 Active HEARING LOSS ICD-9: 389.9 09/29/2011 Active Medications Medication Codes Instructions Start Date Stop Date Status Fill Instructions atorvastatin 20 mg tablet RxNorm: 144748 TAKE 1 TABLET BY MOUTH ONCE DAILY 02/25/2019 No Stop Date Active amitriptyline 50 mg tablet RxNorm: 669469 1 Tablet(s) PO QHS 02/02/2019 05/02/2019 Active Xanax 0.5 mg tablet RxNorm: 593175 Tablet(s) TAKE ONE TABLET BY MOUTH EVERY 8 HOURS NEEDED FOR ANXIETY 02/02/2019 04/02/2019 Active Xanax 0.5 mg tablet RxNorm: 051947 1 Tablet(s) PO Q8 as needed anxiety 12/03/2018 01/30/2019 Inactive amitriptyline 50 mg tablet RxNorm: 878651 1 Tablet(s) PO QHS 12/01/2018 01/29/2019 Inactive dc ambien amitriptyline 25 mg tablet RxNorm: 149077 1 Tablet(s) PO QHS 11/15/2018 11/30/2018 Inactive dc ambien amitriptyline 25 mg tablet RxNorm: 332120 1 Tablet(s) PO QHS 11/15/2018 11/14/2018 Inactive dc ambien atorvastatin 20 mg tablet RxNorm: 258890 1 Tablet(s) PO daily 11/04/2018 02/24/2019 Inactive atorvastatin 20 mg tablet RxNorm: 435695 1 Tablet(s) PO daily 11/04/2018 11/03/2018 Inactive topiramate 25 mg tablet RxNorm: 232748 TAKE 1 TABLET BY MOUTH TWICE DAILY 10/26/2018 No Stop Date Active Ambien 10 mg tablet RxNorm: 569350 Tablet(s) TAKE ONE TABLET BY MOUTH AT BEDTIME NEEDED 10/26/2018 11/14/2018 Inactive Xanax 0.5 mg tablet RxNorm: 594653 1 Tablet(s) PO Q8 as needed anxiety 10/26/2018 11/23/2018 Inactive Xanax 0.5 mg tablet RxNorm: 683600 Tablet(s) TAKE ONE TABLET BY MOUTH EVERY 8 HOURS NEEDED FOR ANXIETY 08/27/2018 10/24/2018 Inactive Ambien 10 mg tablet RxNorm: 882657 Tablet(s) TAKE ONE TABLET BY MOUTH AT BEDTIME NEEDED 08/27/2018 11/14/2018 Inactive Ambien 10 mg tablet RxNorm: 188705 Tablet(s) TAKE ONE TABLET BY MOUTH AT BEDTIME NEEDED 07/29/2018 08/26/2018 Inactive Lexapro 10 mg tablet RxNorm: 590400 TAKE 1 TABLET BY MOUTH IN THE EVENING 07/27/2018 No Stop Date Active Xanax 0.5 mg tablet RxNorm: 919729 1 Tablet(s) PO Q8 as needed anxiety 06/18/2018 09/15/2018 Inactive Xanax 0.5 mg tablet RxNorm: 551474 Tablet(s) TAKE ONE TABLET BY MOUTH EVERY 8 HOURS NEEDED FOR ANXIETY 06/18/2018 08/15/2018 Inactive Ambien 10 mg tablet RxNorm: 870438 1 Tablet(s) PO HS PRN TAKE ONE TABLET BY MOUTH AT BEDTIME NEEDED 05/20/2018 10/25/2018 Inactive topiramate 25 mg tablet RxNorm: 247699 TAKE ONE TABLET BY MOUTH TWICE DAILY 04/21/2018 10/25/2018 Inactive Xanax 0.5 mg tablet RxNorm: 372894 1 Tablet(s) PO Q8 as needed anxiety 03/24/2018 06/17/2018 Inactive Ambien 10 mg tablet RxNorm: 380485 1 Tablet(s) PO HS PRN TAKE ONE TABLET BY MOUTH AT BEDTIME NEEDED 02/22/2018 05/19/2018 Inactive naproxen 500 mg tablet RxNorm: 104432 1 Tablet(s) PO BID 02/22/2018 02/26/2018 Inactive Ambien 10 mg tablet RxNorm: 165886 TAKE ONE TABLET BY MOUTH AT BEDTIME NEEDED 02/19/2018 07/28/2018 Inactive Dexilant 60 mg capsule, delayed release RxNorm: 335267 1 Capsule(s) PO daily 01/21/2018 No Stop Date Active Xanax 0.5 mg tablet RxNorm: 932502 Tablet(s) TAKE ONE TABLET BY MOUTH EVERY 8 HOURS NEEDED FOR ANXIETY 01/19/2018 03/17/2018 Inactive Lexapro 10 mg tablet RxNorm: 031799 TAKE ONE TABLET BY MOUTH IN THE EVENING 01/18/2018 07/26/2018 Inactive Xanax 0.5 mg tablet RxNorm: 584923 1 Tablet(s) PO Q8 PRN TAKE ONE TABLET BY MOUTH EVERY 8 HOURS NEEDED FOR ANXIETY 12/17/2017 01/14/2018 Inactive topiramate 25 mg tablet RxNorm: 151439 TAKE ONE TABLET BY MOUTH TWICE DAILY 10/13/2017 04/20/2018 Inactive K-Dur 10 mEq tablet,extended release RxNorm: 694709 1 Tablet(s) PO daily 09/11/2017 09/11/2017 Inactive potassium chloride ER 10 mEq tablet,extended release RxNorm: 155027 1 Tablet(s) PO daily 09/11/2017 09/10/2017 Inactive Lasix 20 mg tablet RxNorm: 968522 1 Tablet(s) PO daily for three days 09/11/2017 09/10/2017 Inactive potassium chloride ER 10 mEq tablet,extended release RxNorm: 103243 1 Tablet(s) PO daily 09/11/2017 09/13/2017 Inactive Lasix 20 mg tablet RxNorm: 708812 1 Tablet(s) PO daily for three days 09/11/2017 09/13/2017 Inactive naproxen 500 mg tablet RxNorm: 384742 1 Tablet(s) PO BID 09/01/2017 09/05/2017 Inactive Ambien 10 mg tablet RxNorm: 718620 1 Tablet(s) PO HS PRN TAKE ONE TABLET BY MOUTH AT BEDTIME NEEDED 08/14/2017 02/22/2018 Inactive Xanax 0.5 mg tablet RxNorm: 766463 1 Tablet(s) PO Q8 PRN TAKE ONE TABLET BY MOUTH EVERY 8 HOURS NEEDED FOR ANXIETY 08/14/2017 01/18/2018 Inactive Lexapro 10 mg tablet RxNorm: 746273 TAKE ONE TABLET BY MOUTH IN THE EVENING 07/13/2017 01/08/2018 Inactive Xanax 0.5 mg tablet RxNorm: 899704 1 Tablet(s) PO Q8 PRN TAKE ONE TABLET BY MOUTH EVERY 8 HOURS NEEDED FOR ANXIETY 06/18/2017 07/16/2017 Inactive Xanax 0.25 mg tablet RxNorm: 156907 Tablet(s) TAKE ONE TABLET BY MOUTH EVERY 8 HOURS NEEDED FOR ANXIETY 06/17/2017 06/17/2017 Inactive Ambien 10 mg tablet RxNorm: 377499 1 Tablet(s) PO QHS as needed insomnia 06/17/2017 08/17/2017 Inactive topiramate 25 mg tablet RxNorm: 540801 TAKE ONE TABLET BY MOUTH TWICE DAILY 06/16/2017 10/12/2017 Inactive Lexapro 10 mg tablet RxNorm: 373959 TAKE ONE TABLET BY MOUTH IN THE EVENING 04/17/2017 07/12/2017 Inactive Ambien 10 mg tablet RxNorm: 654592 1 Tablet(s) PO QHS as needed insomnia 04/17/2017 01/18/2018 Inactive Xanax 0.25 mg tablet RxNorm: 382022 Tablet(s) TAKE ONE TABLET BY MOUTH EVERY 8 HOURS NEEDED FOR ANXIETY 04/17/2017 06/13/2017 Inactive topiramate 25 mg tablet RxNorm: 772933 TAKE ONE TABLET BY MOUTH TWICE DAILY 03/20/2017 06/15/2017 Inactive Flagyl 500 mg tablet RxNorm: 889555 1 Tablet(s) PO TID do not drink alcohol when taking this medication 02/05/2017 02/09/2017 Inactive Ambien 10 mg tablet RxNorm: 485287 1 Tablet(s) PO QHS as needed insomnia 01/23/2017 04/21/2017 Inactive Xanax 0.25 mg tablet RxNorm: 523854 TAKE ONE TABLET BY MOUTH EVERY 8 HOURS NEEDED FOR ANXIETY 01/23/2017 04/21/2017 Inactive Xanax 0.25 mg tablet RxNorm: 103675 1 Tablet(s) PO TAKE ONE TABLET BY MOUTH EVERY 8 HOURS NEEDED FOR ANXIETY 11/28/2016 01/18/2018 Inactive Lexapro 10 mg tablet RxNorm: 058641 1 Tablet(s) PO QPM 11/20/2016 04/16/2017 Inactive topiramate 25 mg tablet RxNorm: 418963 1 Tablet(s) PO BID start one pill at hs, if migraines not improving, then increase to bid 11/20/2016 01/18/2018 Inactive Ambien 10 mg tablet RxNorm: 815090 1 Tablet(s) PO QHS as needed TAKE ONE TABLET BY MOUTH AT BEDTIME NEEDED FOR INSOMNIA 10/31/2016 01/18/2018 Inactive acyclovir 400 mg tablet RxNorm: 165812 1 Tablet(s) PO TID 10/01/2016 10/05/2016 Inactive acyclovir 400 mg tablet RxNorm: 529089 1 Tablet(s) PO TID 10/01/2016 09/30/2016 Inactive phentermine 37.5 mg tablet RxNorm: 072077 1 Tablet(s) PO daily 09/26/2016 02/04/2017 Inactive Xanax 0.25 mg tablet RxNorm: 779077 Tablet(s) TAKE ONE TABLET BY MOUTH EVERY 8 HOURS NEEDED FOR ANXIETY 08/25/2016 01/18/2018 Inactive Ambien 10 mg tablet RxNorm: 056485 1 Tablet(s) PO daily as needed TAKE ONE TABLET BY MOUTH AT BEDTIME NEEDED FOR INSOMNIA 08/25/2016 11/19/2016 Inactive phentermine 37.5 mg tablet RxNorm: 138626 1 Tablet(s) PO daily 08/25/2016 09/25/2016 Inactive topiramate 25 mg tablet RxNorm: 491582 TAKE ONE TABLET BY MOUTH TWICE DAILY 07/09/2016 08/24/2016 Inactive Xanax 0.25 mg tablet RxNorm: 204711 Tablet(s) TAKE ONE TABLET BY MOUTH EVERY 8 HOURS NEEDED FOR ANXIETY 04/28/2016 06/25/2016 Inactive Ambien 10 mg tablet RxNorm: 901580 1 Tablet(s) PO daily as needed TAKE ONE TABLET BY MOUTH AT BEDTIME NEEDED FOR INSOMNIA 04/28/2016 06/24/2016 Inactive topiramate 25 mg tablet RxNorm: 438574 1 Tablet(s) PO BID 02/20/2016 06/18/2016 Inactive Ambien 10 mg tablet RxNorm: 465951 1 Tablet(s) PO daily as needed TAKE ONE TABLET BY MOUTH AT BEDTIME NEEDED FOR INSOMNIA 01/03/2016 03/31/2016 Inactive (Response to an electronic controlled substance refill request - RxReferenceNumber: [id number]) Xanax 0.25 mg tablet RxNorm: 054179 Tablet(s) TAKE ONE TABLET BY MOUTH EVERY 8 HOURS NEEDED FOR ANXIETY 01/03/2016 01/18/2018 Inactive (Response to an electronic controlled substance refill request - RxReferenceNumber: [id number]) meclizine 25 mg tablet RxNorm: 158701 1 Tablet(s) PO QID 12/13/2015 01/11/2016 Inactive Xanax 0.25 mg tablet RxNorm: 406259 Tablet(s) TAKE ONE TABLET BY MOUTH EVERY 8 HOURS NEEDED FOR ANXIETY 11/23/2015 01/18/2018 Inactive (Response to an electronic controlled substance refill request - RxReferenceNumber: [id number]) topiramate 25 mg tablet RxNorm: 087137 1 Tablet(s) PO BID 11/02/2015 12/12/2015 Inactive pt needs to make an appt Ambien 10 mg tablet RxNorm: 182044 1 Tablet(s) PO daily as needed TAKE ONE TABLET BY MOUTH AT BEDTIME NEEDED FOR INSOMNIA 10/30/2015 11/19/2016 Inactive (Response to an electronic controlled substance refill request - RxReferenceNumber: [id number]) Xanax 0.25 mg tablet RxNorm: 258720 Tablet(s) TAKE ONE TABLET BY MOUTH EVERY 8 HOURS NEEDED FOR ANXIETY 09/20/2015 10/18/2015 Inactive (Response to an electronic controlled substance refill request - RxReferenceNumber: [id number]) Xanax 0.25 mg tablet RxNorm: 271595 Tablet(s) TAKE ONE TABLET BY MOUTH EVERY 8 HOURS NEEDED FOR ANXIETY 06/28/2015 08/25/2015 Inactive (Response to an electronic controlled substance refill request - RxReferenceNumber: [id number]) topiramate 25 mg tablet RxNorm: 846380 1 Tablet(s) PO BID 06/27/2015 10/24/2015 Inactive Ambien 10 mg tablet RxNorm: 353871 1 Tablet(s) PO daily as needed TAKE ONE TABLET BY MOUTH AT BEDTIME NEEDED FOR INSOMNIA 06/26/2015 09/23/2015 Inactive (Response to an electronic controlled substance refill request - RxReferenceNumber: [id number]) Xanax 0.25 mg tablet RxNorm: 412991 Tablet(s) TAKE ONE TABLET BY MOUTH EVERY 8 HOURS NEEDED FOR ANXIETY 04/04/2015 06/02/2015 Inactive (Response to an electronic controlled substance refill request - RxReferenceNumber: [id number]) Ambien 10 mg tablet RxNorm: 144388 1 Tablet(s) PO daily as needed TAKE ONE TABLET BY MOUTH AT BEDTIME NEEDED FOR INSOMNIA 02/16/2015 05/16/2015 Inactive (Response to an electronic controlled substance refill request - RxReferenceNumber: [id number]) Ambien 10 mg tablet RxNorm: 621849 TAKE ONE TABLET BY MOUTH AT BEDTIME NEEDED FOR INSOMNIA 01/11/2015 02/09/2015 Inactive (Response to an electronic controlled substance refill request - RxReferenceNumber: [id number]) Ambien 10 mg tablet RxNorm: 943205 1 Tablet(s) PO QHS as needed TAKE ONE TABLET BY MOUTH AT BEDTIME NEEDED 01/11/2015 01/11/2015 Inactive (Appended: Controlled substance eRx refill - RxReferenceNumber: [id number]) topiramate 25 mg tablet RxNorm: 173367 1 Tablet(s) PO BID 01/11/2015 05/10/2015 Inactive Xanax 0.25 mg tablet RxNorm: 223391 TAKE ONE TABLET BY MOUTH EVERY 8 HOURS NEEDED FOR ANXIETY 01/11/2015 02/09/2015 Inactive (Response to an electronic controlled substance refill request - RxReferenceNumber: [id number]) Xanax 0.25 mg tablet RxNorm: 477465 Tablet(s) TAKE ONE TABLET BY MOUTH EVERY 8 HOURS NEEDED FOR ANXIETY 01/11/2015 01/11/2015 Inactive (Response to an electronic controlled substance refill request - RxReferenceNumber: [id number]) Xanax 0.25 mg tablet RxNorm: 495733 Tablet(s) TAKE ONE TABLET BY MOUTH EVERY 8 HOURS NEEDED FOR ANXIETY 11/20/2014 12/17/2014 Inactive (Response to an electronic controlled substance refill request - RxReferenceNumber: [id number]) Xanax 0.25 mg tablet RxNorm: 939447 TAKE ONE TABLET BY MOUTH EVERY 8 HOURS NEEDED FOR ANXIETY 09/14/2014 10/13/2014 Inactive (Response to an electronic controlled substance refill request - RxReferenceNumber: [id number]) Xanax 0.25 mg tablet RxNorm: 545704 Tablet(s) PO TAKE ONE TABLET BY MOUTH EVERY 8 HOURS NEEDED FOR ANXIETY 09/12/2014 09/15/2014 Inactive (Appended: Controlled substance eRx refill - RxReferenceNumber: [id number]) Xanax 0.25 mg tablet RxNorm: 107214 TAKE ONE TABLET BY MOUTH EVERY 8 HOURS NEEDED FOR ANXIETY 07/31/2014 07/31/2014 Inactive (Response to an electronic controlled substance refill request - RxReferenceNumber: [id number]) Ambien 10 mg tablet RxNorm: 238148 TAKE ONE TABLET BY MOUTH AT BEDTIME NEEDED FOR INSOMNIA 07/31/2014 11/19/2016 Inactive (Response to an electronic controlled substance refill request - RxReferenceNumber: [id number]) Xanax 0.25 mg tablet RxNorm: 225178 TAKE ONE TABLET BY MOUTH EVERY 8 HOURS NEEDED FOR ANXIETY 07/31/2014 08/29/2014 Inactive (Response to an electronic controlled substance refill request - RxReferenceNumber: [id number]) metronidazole 500 mg tablet RxNorm: 967277 1 Tablet(s) PO TID 05/25/2014 05/31/2014 Inactive Diflucan 150 mg tablet RxNorm: 041193 1 Tablet(s) PO daily 05/25/2014 05/29/2014 Inactive topiramate 25 mg tablet RxNorm: 569309 1 Tablet(s) PO BID 04/24/2014 11/19/2014 Inactive Xanax 0.25 mg tablet RxNorm: 086565 Tablet(s) PO TAKE ONE TABLET BY MOUTH EVERY 8 HOURS NEEDED FOR ANXIETY 01/17/2014 07/31/2014 Inactive (Appended: Controlled substance eRx refill - RxReferenceNumber: [id number]) Xanax 0.25 mg tablet RxNorm: 547261 Tablet(s) PO TAKE ONE TABLET BY MOUTH EVERY 8 HOURS NEEDED FOR ANXIETY 01/16/2014 01/17/2014 Inactive (Appended: Controlled substance eRx refill - RxReferenceNumber: [id number]) Xanax 0.25 mg tablet RxNorm: 805901 Tablet(s) PO TAKE ONE TABLET BY MOUTH EVERY 8 HOURS NEEDED FOR ANXIETY 01/13/2014 09/11/2014 Inactive (Appended: Controlled substance eRx refill - RxReferenceNumber: [id number]) Xanax 0.25 mg tablet RxNorm: 419410 Tablet(s) PO TAKE ONE TABLET BY MOUTH EVERY 8 HOURS NEEDED FOR ANXIETY 11/21/2013 01/16/2014 Inactive (Appended: Controlled substance eRx refill - RxReferenceNumber: [id number]) Xanax 0.25 mg tablet RxNorm: 847242 Tablet(s) PO TAKE ONE TABLET BY MOUTH EVERY 8 HOURS NEEDED FOR ANXIETY 11/18/2013 01/15/2014 Inactive (Appended: Controlled substance eRx refill - RxReferenceNumber: [id number]) Ambien 10 mg tablet RxNorm: 839012 Tablet(s) PO TAKE ONE TABLET BY MOUTH EVERY DAY AT BEDTIME NEEDED 08/31/2013 07/31/2014 Inactive (Appended: Controlled substance eRx refill - RxReferenceNumber: [id number]) Ambien 10 mg tablet RxNorm: 688288 Tablet(s) PO TAKE ONE TABLET BY MOUTH EVERY DAY AT BEDTIME NEEDED 08/31/2013 08/30/2013 Inactive (Appended: Controlled substance eRx refill - RxReferenceNumber: [id number]) Xanax 0.25 mg tablet RxNorm: 466154 Tablet(s) PO TAKE ONE TABLET BY MOUTH EVERY 8 HOURS NEEDED FOR ANXIETY 07/21/2013 11/21/2013 Inactive (Appended: Controlled substance eRx refill - RxReferenceNumber: [id number]) Xanax 0.25 mg tablet RxNorm: 656136 Tablet(s) PO TAKE ONE TABLET BY MOUTH EVERY 8 HOURS NEEDED FOR ANXIETY 07/19/2013 07/21/2013 Inactive (Appended: Controlled substance eRx refill - RxReferenceNumber: [id number]) omeprazole 20 mg capsule,delayed release RxNorm: 977490 Capsule(s) PO TAKE ONE CAPSULE BY MOUTH EVERY DAY 05/23/2013 04/23/2014 Inactive Flagyl 500 mg tablet RxNorm: 093341 1 Tablet(s) PO BID 02/21/2013 02/20/2013 Inactive Flagyl 500 mg tablet RxNorm: 060602 1 Tablet(s) PO BID 02/21/2013 02/27/2013 Inactive fluconazole 150 mg tablet RxNorm: 613825 1 Tablet(s) PO PRN one pill as needed for yeast infection symptoms 02/14/2013 04/23/2014 Inactive Xanax 0.25 mg tablet RxNorm: 991338 Tablet(s) PO TAKE ONE TABLET BY MOUTH EVERY 8 HOURS NEEDED FOR ANXIETY 02/03/2013 11/20/2013 Inactive (Appended: Controlled substance eRx refill - RxReferenceNumber: [id number]) Ambien 10 mg tablet RxNorm: 596496 Tablet(s) PO TAKE ONE TABLET BY MOUTH AT BEDTIME NEEDED 02/03/2013 08/31/2013 Inactive (Appended: Controlled substance eRx refill - RxReferenceNumber: [id number]) Ambien 10 mg tablet RxNorm: 362908 Tablet(s) PO TAKE ONE TABLET BY MOUTH AT BEDTIME NEEDED 02/03/2013 01/10/2015 Inactive (Appended: Controlled substance eRx refill - RxReferenceNumber: [id number]) Xanax 0.25 mg tablet RxNorm: 547614 Tablet(s) PO 02/03/2013 07/20/2013 Inactive TAKE ONE TABLET BY MOUTH EVERY 8 HOURS NEEDED FOR ANXIETY (Appended: Controlled substance eRx refill - RxReferenceNumber: [id number]) Xanax 0.25 mg tablet RxNorm: 543719 Tablet(s) PO TAKE ONE TABLET BY MOUTH EVERY 8 HOURS NEEDED FOR ANXIETY 12/08/2012 02/03/2013 Inactive (Appended: Controlled substance eRx refill - RxReferenceNumber: [id number]) Ambien 10 mg tablet RxNorm: 022180 Tablet(s) PO TAKE ONE TABLET BY MOUTH AT BEDTIME NEEDED 12/08/2012 02/02/2013 Inactive (Appended: Controlled substance eRx refill - RxReferenceNumber: [id number]) Xanax 0.25 mg tablet RxNorm: 431067 Tablet(s) PO TAKE ONE TABLET BY MOUTH EVERY 8 HOURS NEEDED FOR ANXIETY 12/08/2012 12/07/2012 Inactive (Appended: Controlled substance eRx refill - RxReferenceNumber: [id number]) Ambien 10 mg tablet RxNorm: 498605 Tablet(s) PO TAKE ONE TABLET BY MOUTH AT BEDTIME NEEDED 12/08/2012 02/03/2013 Inactive (Appended: Controlled substance eRx refill - RxReferenceNumber: [id number]) Ambien 10 mg tablet RxNorm: 190902 Tablet(s) PO 08/27/2012 12/08/2012 Inactive TAKE ONE TABLET BY MOUTH AT BEDTIME NEEDED (Appended: Controlled substance eRx refill - RxReferenceNumber: [id number]) Xanax 0.25 mg tablet RxNorm: 132946 Tablet(s) PO 08/24/2012 02/02/2013 Inactive TAKE ONE TABLET BY MOUTH EVERY 8 HOURS NEEDED FOR ANXIETY (Appended: Controlled substance eRx refill - RxReferenceNumber: [id number]) Ambien 10 mg tablet RxNorm: 108654 Tablet(s) PO 08/24/2012 08/27/2012 Inactive TAKE ONE TABLET BY MOUTH AT BEDTIME NEEDED (Appended: Controlled substance eRx refill - RxReferenceNumber: [id number]) Xanax 0.25 mg tablet RxNorm: 190273 Tablet(s) PO 08/24/2012 12/08/2012 Inactive TAKE ONE TABLET BY MOUTH EVERY 8 HOURS NEEDED FOR ANXIETY (Appended: Controlled substance eRx refill - RxReferenceNumber: [id number]) Xanax 0.25 mg tablet RxNorm: 339273 1 Tablet(s) PO Q8 PRN 07/09/2012 08/24/2012 Inactive omeprazole 20 mg capsule,delayed release RxNorm: 012270 1 Capsule(s) PO daily 05/19/2012 12/14/2012 Inactive Ambien 10 mg tablet RxNorm: 047943 1 Tablet(s) PO QHS 05/19/2012 08/24/2012 Inactive Xanax 0.25 mg tablet RxNorm: 704053 1 Tablet(s) PO Q8 PRN 03/16/2012 06/13/2012 Inactive Diflucan 150 mg Tab RxNorm: 192551 1 Tablet(s) PO daily 01/05/2012 01/14/2012 Inactive Ambien 10 mg tablet RxNorm: 448833 1 Tablet(s) PO QHS 01/02/2012 04/30/2012 Inactive Ambien 10 mg Tab RxNorm: 467228 1 Tablet(s) PO QHS 12/24/2011 01/01/2012 Inactive Rocephin 500 mg Solution for Injection RxNorm: 9189857 1 Milliliter(s) Inj 11/13/2011 11/13/2011 Inactive omeprazole 20 mg capsule,delayed release RxNorm: 068034 1 Capsule(s) PO daily 10/07/2011 05/18/2012 Inactive omeprazole 20 mg Cap, Delayed Release RxNorm: 437918 1 Capsule(s) PO daily 10/07/2011 04/03/2012 Inactive Ambien 5 mg Tab RxNorm: 040490 1 Tablet(s) PO QHS 1 tab q hs prn insomnia 10/07/2011 12/23/2011 Inactive Xanax 0.25 mg Tab RxNorm: [id number] 1 Tablet(s) PO Q8 PRN 09/29/2011 03/15/2012 Inactive Medication Administered Medication Codes Instructions Start Date Status Rocephin 500 mg Solution for Injection RxNorm: 4409480 1Milliliter 11/13/2011 No longer Active Immunizations Vaccine Codes Date Status Influenza CVX: 141 07/12/2016 completed Assessments Condition Codes Effective Dates Encounter for general adult medical examination without abnormal findings ICD-10: Z00.00 ICD-9: V70.0 10/26/2018 Excessive and frequent menstruation with regular cycle ICD-10: N92.0 ICD-9: 626.2 02/22/2018 Gastro-esophageal reflux disease with esophagitis ICD-10: K21.0 ICD-9: 530.11 01/21/2018 Pain in left leg ICD-10: M79.605 ICD-9: 729.5 09/01/2017 Generalized anxiety disorder ICD-10: F41.1 ICD-9: 300.02 06/18/2017 Pain in left shoulder ICD-10: M25.512 ICD-9: 719.41 02/19/2017 Pain in right shoulder ICD-10: M25.511 ICD-9: 719.41 02/19/2017 Encounter for gynecological examination (general) (routine) without abnormal findings ICD-10: Z01.419 ICD-9: V72.31 02/05/2017 Other obesity due to excess calories ICD-10: E66.09 ICD-9: 278.00 11/20/2016 Adjustment insomnia ICD-10: F51.02 ICD-9: 307.41 08/25/2016 Dizziness and giddiness ICD-10: R42 ICD-9: 780.4 12/13/2015 Other chest pain ICD-10: R07.89 ICD-9: 786.59 11/15/2015 GENERALIZED ANXIETY DISEASE ICD-9: 300.02 06/28/2015 Migraines ICD-9: 346.90 06/28/2015 Right ankle pain ICD-9: 719.47 05/23/2014 Right ankle sprain ICD-9: 845.00 05/23/2014 ROUTINE GYNE EXAM ICD-9: V72.31 04/24/2014 Laboratory exam ordered as part of routine general medical examination ICD-9: V72.62 04/24/2014 Myalgia ICD-9: 729.1 02/16/2012 Numbness in both legs ICD-9: 782.0 02/16/2012 Skin lesion of breast ICD-9: 611.9 01/05/2012 Vaginal discharge ICD-9: 623.5 01/05/2012 Cough ICD-9: 786.2 11/13/2011 Cerumen impaction ICD-9: 380.4 11/13/2011 Acute maxillary sinusitis ICD-9: 461.0 11/13/2011 HEARING LOSS ICD-9: 389.9 09/29/2011 DEPRESSIVE DISORDER NEC ICD-9: 311 09/29/2011 Reason For Visit Reason For Visit Effective Dates Notes medication follow up 10/26/2018 menstrual irregularity 02/22/2018 gastroesophageal reflux 01/21/2018 lower leg pain 09/01/2017 anxiety 06/18/2017 edema 02/19/2017 well woman exam (40-65 years) 02/05/2017 well woman exam (40-65 years) 11/20/2016 medication follow up 08/25/2016 vertigo 12/13/2015 chest pain/pressure 11/15/2015 medication follow up 06/28/2015 ankle pain 05/23/2014 well woman exam (40-65 years) 04/24/2014 well woman exam (40-65 years) 02/14/2013 paresthesia 02/16/2012 well woman exam (40-65 years) 01/05/2012 pt states it has been about 4 years since her last pap sinus congestion 11/13/2011 chest pain/pressure 09/29/2011 Results Observation Observation Code Item Item Code Result Date GC/CHL PRB 5730035 CHLM PROBE NEG 04/26/2014 GC/CHL PRB 7955302 GC PROBE NEG 04/26/2014 TSH 3324302 TSH 2.977 uIU/ML 02/16/2013 GC/CHL PRB 8718623 SOURCE KIMBERLYN UNKNOWN 02/15/2013 GC/CHL PRB [id number] CHLM PROBE NEG 02/15/2013 GC/CHL PRB 8961350 GC PROBE NEG 02/15/2013 CHEM 14 2071716 AST 12 U/L 02/15/2013 CHEM 14 0766451 ALT 16 IU/L 02/15/2013 CHEM 14 9675211 BUN 13 MG/DL 02/15/2013 CHEM 14 6608697 ALBUMIN 4.6 GM/DL 02/15/2013 CHEM 14 2229795 CHLORIDE 104 MMOL/L 02/15/2013 CHEM 14 0020074 BILI TOT 0.5 MG/DL 02/15/2013 CHEM 14 2508522 ALK PHOS 55 U/L 02/15/2013 CHEM 14 2606042 SODIUM 137 MMOL/L 02/15/2013 CHEM 14 1911621 CREATININE 0.79 MG/DL 02/15/2013 CHEM 14 5954918 CALCIUM 9.3 MG/DL 02/15/2013 CHEM 14 6295117 POTASSIUM 4.0 MMOL/L 02/15/2013 CHEM 14 2340450 PROT TOT 6.9 GM/DL 02/15/2013 CHEM 14 0871809 GLUCOSE 99 MG/DL 02/15/2013 CHEM 14 2570527 BICARB 29 MMOL/L 02/15/2013 CHEM 14 7816491 ANION GAP 4 MEQ/L 02/15/2013 GFR CALC 3049497 GFR AA >60 ML/MIN 02/15/2013 GFR CALC 2743754 GFR NON-AA >60 ML/MIN 02/15/2013 LIPID GRP HDL TEST 38 MG/DL 02/15/2013 LIPID GRP TRIG 126 MG/DL 02/15/2013 LIPID GRP TEST LDL 112 MG/DL 02/15/2013 LIPID GRP CHOL 175 MG/DL 02/15/2013 LIPID GRP RCHOL/HDL 4.61 RATIO 02/15/2013 CBC [id number] WBC 5.8 10e9/L 02/15/2013 CBC 8462606 RBC 4.51 10e12/L 02/15/2013 CBC 5228266 HGB 13.8 g/dL 02/15/2013 CBC 8381376 HCT DET 39.0 % 02/15/2013 CBC [id number] MCV 86.5 fL 02/15/2013 CBC 0875343 MCH 30.6 pg 02/15/2013 CBC 5684764 MCHC 35.4 g/dL 02/15/2013 CBC [id number] PLT 284 10e9/L 02/15/2013 CBC 2494762 MPV 10.3 fL 02/15/2013 CBC [id number] BLANQUITA % 62.9 % 02/15/2013 CBC [id number] LY % 26.8 % 02/15/2013 CBC 3920002 MON % 9.1 % 02/15/2013 CBC 7734118 EOS % 1.2 % 02/15/2013 CBC [id number] BASO % 0.0 % 02/15/2013 CBC [id number] RDW 14.4 % 02/15/2013 CBC [id number] ABS BLANQUITA 3.65 10e9/L 02/15/2013 CBC [id number] ABS LYMPH 1.55 10e9/L 02/15/2013 CBC [id number] ABS MONO 0.53 10e9/L 02/15/2013 CBC [id number] ABS EOS 0.07 10e9/L 02/15/2013 CBC [id number] ABS BASO 0.00 10e9/L 02/15/2013 CBC [id number] RDW-SD 44.0 fL 02/15/2013 Review of Systems System Result Effective Dates Constitutional No recent illness 10/26/2018 Constitutional No anorexia 10/26/2018 Constitutional No night sweats 10/26/2018 Constitutional No chills 10/26/2018 Constitutional No diaphoresis 10/26/2018 Constitutional fatigue 10/26/2018 Constitutional No fever 10/26/2018 Constitutional insomnia 10/26/2018 Eyes No eye discharge 10/26/2018 Eyes No eye erythema 10/26/2018 Ears/Nose/Throat/Neck No dizziness 10/26/2018 Ears/Nose/Throat/Neck No headache 10/26/2018 Cardiovascular No chest pain/pressure 10/26/2018 Respiratory No cough 10/26/2018 Gastrointestinal No abdominal pain 10/26/2018 Gastrointestinal No constipation 10/26/2018 Gastrointestinal No diarrhea 10/26/2018 Gastrointestinal gas and bloating 10/26/2018 Gastrointestinal gastroesophageal reflux 10/26/2018 Genitourinary/Nephrology No dysuria 10/26/2018 Musculoskeletal No joint complaint 10/26/2018 Dermatologic No rash 10/26/2018 Neurologic No alteration of consciousness 10/26/2018 Cardiovascular No edema 10/26/2018 Cardiovascular No near-syncope/dizziness 10/26/2018 Cardiovascular No syncope 10/26/2018 Respiratory No productive sputum 10/26/2018 Respiratory No chest congestion 10/26/2018 Respiratory No chest tightness 10/26/2018 Respiratory No dyspnea 10/26/2018 Genitourinary/Nephrology No breast complaint 10/26/2018 Genitourinary/Nephrology No hematuria 10/26/2018 Genitourinary/Nephrology No menopausal symptoms 10/26/2018 Genitourinary/Nephrology No nocturia 10/26/2018 Genitourinary/Nephrology No Pap smear abnormality 10/26/2018 Genitourinary/Nephrology No urinary urgency 10/26/2018 Genitourinary/Nephrology No urinary frequency 10/26/2018 Genitourinary/Nephrology No urinary incontinence 10/26/2018 Genitourinary/Nephrology No vaginal discharge 10/26/2018 Dermatologic No scar 10/26/2018 Psychiatric anxiety 10/26/2018 Psychiatric depression 10/26/2018 Constitutional No recent illness 02/22/2018 Constitutional No chills 02/22/2018 Constitutional No diaphoresis 02/22/2018 Constitutional No fever 02/22/2018 Eyes No eye erythema 02/22/2018 Ears/Nose/Throat/Neck No nasal discharge 02/22/2018 Cardiovascular No chest pain/pressure 02/22/2018 Cardiovascular No dyspnea 02/22/2018 Respiratory No cough 02/22/2018 Respiratory No chest congestion 02/22/2018 Gastrointestinal No abdominal pain 02/22/2018 Genitourinary/Nephrology menopausal symptoms 02/22/2018 Genitourinary/Nephrology menstrual irregularity 02/22/2018 Dermatologic No rash 02/22/2018 Neurologic No alteration of consciousness 02/22/2018 Neurologic No mental status change 02/22/2018 Constitutional No recent illness 01/21/2018 Constitutional No anorexia 01/21/2018 Constitutional No night sweats 01/21/2018 Constitutional No chills 01/21/2018 Constitutional No diaphoresis 01/21/2018 Constitutional fatigue 01/21/2018 Constitutional No fever 01/21/2018 Constitutional insomnia 01/21/2018 Eyes No eye discharge 01/21/2018 Eyes No eye erythema 01/21/2018 Ears/Nose/Throat/Neck No dizziness 01/21/2018 Ears/Nose/Throat/Neck No headache 01/21/2018 Cardiovascular No chest pain/pressure 01/21/2018 Respiratory No cough 01/21/2018 Gastrointestinal No abdominal pain 01/21/2018 Gastrointestinal No constipation 01/21/2018 Gastrointestinal No diarrhea 01/21/2018 Genitourinary/Nephrology No dysuria 01/21/2018 Gastrointestinal gastroesophageal reflux 01/21/2018 Musculoskeletal No joint complaint 01/21/2018 Gastrointestinal gas and bloating 01/21/2018 Dermatologic No rash 01/21/2018 Neurologic No alteration of consciousness 01/21/2018 Constitutional No recent illness 09/01/2017 Constitutional No chills 09/01/2017 Constitutional No fever 09/01/2017 Eyes No eye erythema 09/01/2017 Ears/Nose/Throat/Neck No nasal discharge 09/01/2017 Cardiovascular No chest pain/pressure 09/01/2017 Cardiovascular No dyspnea 09/01/2017 Respiratory No cough 09/01/2017 Respiratory No dyspnea 09/01/2017 Musculoskeletal joint complaint 09/01/2017 Neurologic No alteration of consciousness 09/01/2017 Neurologic No mental status change 09/01/2017 Constitutional No recent illness 06/18/2017 Constitutional No fatigue 06/18/2017 Constitutional No fever 06/18/2017 Constitutional No insomnia 06/18/2017 Eyes No eye discharge 06/18/2017 Eyes No eye erythema 06/18/2017 Ears/Nose/Throat/Neck No headache 06/18/2017 Cardiovascular No chest pain/pressure 06/18/2017 Cardiovascular No edema 06/18/2017 Cardiovascular No near-syncope/dizziness 06/18/2017 Cardiovascular No syncope 06/18/2017 Respiratory No productive sputum 06/18/2017 Respiratory No chest congestion 06/18/2017 Respiratory No chest tightness 06/18/2017 Respiratory No cough 06/18/2017 Respiratory No dyspnea 06/18/2017 Gastrointestinal No abdominal pain 06/18/2017 Gastrointestinal No constipation 06/18/2017 Gastrointestinal No diarrhea 06/18/2017 Genitourinary/Nephrology No breast complaint 06/18/2017 Genitourinary/Nephrology No dysuria 06/18/2017 Genitourinary/Nephrology No hematuria 06/18/2017 Genitourinary/Nephrology No menopausal symptoms 06/18/2017 Genitourinary/Nephrology No nocturia 06/18/2017 Genitourinary/Nephrology No Pap smear abnormality 06/18/2017 Genitourinary/Nephrology No urinary urgency 06/18/2017 Genitourinary/Nephrology No urinary frequency 06/18/2017 Genitourinary/Nephrology No urinary incontinence 06/18/2017 Musculoskeletal No joint complaint 06/18/2017 Neurologic No alteration of consciousness 06/18/2017 Psychiatric anxiety 06/18/2017 Psychiatric No depression 06/18/2017 Dermatologic No rash 06/18/2017 Constitutional No recent illness 02/19/2017 Constitutional No chills 02/19/2017 Constitutional No diaphoresis 02/19/2017 Constitutional No fever 02/19/2017 Eyes No eye erythema 02/19/2017 Ears/Nose/Throat/Neck No nasal allergies 02/19/2017 Ears/Nose/Throat/Neck No nasal discharge 02/19/2017 Ears/Nose/Throat/Neck No sore throat 02/19/2017 Ears/Nose/Throat/Neck No postnasal drip 02/19/2017 Ears/Nose/Throat/Neck No sinus congestion 02/19/2017 Cardiovascular No chest pain/pressure 02/19/2017 Cardiovascular No dyspnea 02/19/2017 Respiratory No cough 02/19/2017 Respiratory No dyspnea 02/19/2017 Gastrointestinal No abdominal pain 02/19/2017 Musculoskeletal No joint complaint 02/19/2017 Dermatologic No rash 02/19/2017 Neurologic No alteration of consciousness 02/19/2017 Neurologic No mental status change 02/19/2017 Cardiovascular No chest pain/pressure 02/05/2017 Cardiovascular No edema 02/05/2017 Cardiovascular No near-syncope/dizziness 02/05/2017 Cardiovascular No syncope 02/05/2017 Constitutional No fatigue 02/05/2017 Constitutional No fever 02/05/2017 Constitutional No insomnia 02/05/2017 Constitutional No recent illness 02/05/2017 Ears/Nose/Throat/Neck No headache 02/05/2017 Eyes No eye discharge 02/05/2017 Eyes No eye erythema 02/05/2017 Gastrointestinal No abdominal pain 02/05/2017 Gastrointestinal No constipation 02/05/2017 Gastrointestinal No diarrhea 02/05/2017 Genitourinary/Nephrology No breast complaint 02/05/2017 Genitourinary/Nephrology No dysuria 02/05/2017 Genitourinary/Nephrology No hematuria 02/05/2017 Genitourinary/Nephrology No urinary frequency 02/05/2017 Genitourinary/Nephrology No urinary incontinence 02/05/2017 Genitourinary/Nephrology No urinary urgency 02/05/2017 Genitourinary/Nephrology vaginal discharge 02/05/2017 Genitourinary/Nephrology No menopausal symptoms 02/05/2017 Genitourinary/Nephrology No nocturia 02/05/2017 Genitourinary/Nephrology No Pap smear abnormality 02/05/2017 Musculoskeletal No joint complaint 02/05/2017 Neurologic No alteration of consciousness 02/05/2017 Respiratory No chest congestion 02/05/2017 Respiratory No chest tightness 02/05/2017 Respiratory No cough 02/05/2017 Respiratory No dyspnea 02/05/2017 Respiratory No productive sputum 02/05/2017 Psychiatric No anxiety 02/05/2017 Psychiatric No depression 02/05/2017 Constitutional No recent illness 11/20/2016 Constitutional No fatigue 11/20/2016 Constitutional No fever 11/20/2016 Constitutional insomnia 11/20/2016 Eyes No eye discharge 11/20/2016 Eyes No eye erythema 11/20/2016 Ears/Nose/Throat/Neck No headache 11/20/2016 Cardiovascular No chest pain/pressure 11/20/2016 Cardiovascular No edema 11/20/2016 Cardiovascular No near-syncope/dizziness 11/20/2016 Cardiovascular No syncope 11/20/2016 Respiratory No productive sputum 11/20/2016 Respiratory No chest congestion 11/20/2016 Respiratory No chest tightness 11/20/2016 Respiratory No cough 11/20/2016 Respiratory No dyspnea 11/20/2016 Gastrointestinal No abdominal pain 11/20/2016 Gastrointestinal No constipation 11/20/2016 Gastrointestinal No diarrhea 11/20/2016 Genitourinary/Nephrology No breast complaint 11/20/2016 Genitourinary/Nephrology No dysuria 11/20/2016 Genitourinary/Nephrology No hematuria 11/20/2016 Genitourinary/Nephrology No menopausal symptoms 11/20/2016 Genitourinary/Nephrology No nocturia 11/20/2016 Genitourinary/Nephrology No Pap smear abnormality 11/20/2016 Genitourinary/Nephrology No urinary urgency 11/20/2016 Genitourinary/Nephrology No urinary frequency 11/20/2016 Genitourinary/Nephrology No urinary incontinence 11/20/2016 Genitourinary/Nephrology No vaginal discharge 11/20/2016 Musculoskeletal No joint complaint 11/20/2016 Dermatologic No rash 11/20/2016 Dermatologic No scar 11/20/2016 Neurologic No alteration of consciousness 11/20/2016 Psychiatric anxiety 11/20/2016 Psychiatric depression 11/20/2016 Constitutional No recent illness 08/25/2016 Constitutional No fatigue 08/25/2016 Constitutional No fever 08/25/2016 Constitutional insomnia 08/25/2016 Eyes No eye discharge 08/25/2016 Eyes No eye erythema 08/25/2016 Ears/Nose/Throat/Neck No headache 08/25/2016 Cardiovascular No chest pain/pressure 08/25/2016 Cardiovascular No edema 08/25/2016 Cardiovascular No near-syncope/dizziness 08/25/2016 Cardiovascular No syncope 08/25/2016 Respiratory No productive sputum 08/25/2016 Respiratory No chest congestion 08/25/2016 Respiratory No chest tightness 08/25/2016 Respiratory No cough 08/25/2016 Respiratory No dyspnea 08/25/2016 Gastrointestinal No abdominal pain 08/25/2016 Gastrointestinal No constipation 08/25/2016 Gastrointestinal No diarrhea 08/25/2016 Genitourinary/Nephrology No breast complaint 08/25/2016 Genitourinary/Nephrology No dysuria 08/25/2016 Genitourinary/Nephrology No hematuria 08/25/2016 Genitourinary/Nephrology No menopausal symptoms 08/25/2016 Genitourinary/Nephrology No nocturia 08/25/2016 Genitourinary/Nephrology No Pap smear abnormality 08/25/2016 Genitourinary/Nephrology No urinary urgency 08/25/2016 Genitourinary/Nephrology No urinary frequency 08/25/2016 Genitourinary/Nephrology No urinary incontinence 08/25/2016 Genitourinary/Nephrology No vaginal discharge 08/25/2016 Musculoskeletal No joint complaint 08/25/2016 Dermatologic No rash 08/25/2016 Dermatologic No scar 08/25/2016 Neurologic No alteration of consciousness 08/25/2016 Psychiatric anxiety 08/25/2016 Psychiatric depression 08/25/2016 Constitutional No recent illness 12/13/2015 Constitutional No fever 12/13/2015 Constitutional No insomnia 12/13/2015 Eyes No eye discharge 12/13/2015 Eyes No eye erythema 12/13/2015 Ears/Nose/Throat/Neck No headache 12/13/2015 Cardiovascular No chest pain/pressure 12/13/2015 Cardiovascular No edema 12/13/2015 Cardiovascular No syncope 12/13/2015 Respiratory No productive sputum 12/13/2015 Respiratory No chest congestion 12/13/2015 Respiratory No cough 12/13/2015 Respiratory No dyspnea 12/13/2015 Gastrointestinal No abdominal pain 12/13/2015 Gastrointestinal No constipation 12/13/2015 Gastrointestinal No diarrhea 12/13/2015 Genitourinary/Nephrology No dysuria 12/13/2015 Musculoskeletal No joint complaint 12/13/2015 Dermatologic No rash 12/13/2015 Neurologic No alteration of consciousness 12/13/2015 Psychiatric No anxiety 12/13/2015 Psychiatric No depression 12/13/2015 Ears/Nose/Throat/Neck dizziness 12/13/2015 Ears/Nose/Throat/Neck No sinus congestion 12/13/2015 Cardiovascular near-syncope/dizziness 12/13/2015 Cardiovascular No dyspnea 12/13/2015 Gastrointestinal No vomiting 12/13/2015 Gastrointestinal No nausea 12/13/2015 Constitutional No recent illness 11/15/2015 Constitutional No fever 11/15/2015 Constitutional No insomnia 11/15/2015 Eyes No eye discharge 11/15/2015 Eyes No eye erythema 11/15/2015 Ears/Nose/Throat/Neck dizziness 11/15/2015 Ears/Nose/Throat/Neck No headache 11/15/2015 Ears/Nose/Throat/Neck No sinus congestion 11/15/2015 Cardiovascular chest pain/pressure 11/15/2015 Cardiovascular No dyspnea 11/15/2015 Cardiovascular No edema 11/15/2015 Cardiovascular near-syncope/dizziness 11/15/2015 Cardiovascular No syncope 11/15/2015 Respiratory No productive sputum 11/15/2015 Respiratory No chest congestion 11/15/2015 Respiratory No cough 11/15/2015 Respiratory No dyspnea 11/15/2015 Gastrointestinal No abdominal pain 11/15/2015 Gastrointestinal No constipation 11/15/2015 Gastrointestinal No diarrhea 11/15/2015 Gastrointestinal No nausea 11/15/2015 Gastrointestinal No vomiting 11/15/2015 Genitourinary/Nephrology No dysuria 11/15/2015 Musculoskeletal No joint complaint 11/15/2015 Dermatologic No rash 11/15/2015 Neurologic No alteration of consciousness 11/15/2015 Psychiatric No anxiety 11/15/2015 Psychiatric No depression 11/15/2015 Constitutional No recent illness 06/28/2015 Constitutional No fatigue 06/28/2015 Constitutional No fever 06/28/2015 Constitutional No insomnia 06/28/2015 Eyes No eye discharge 06/28/2015 Eyes No eye erythema 06/28/2015 Ears/Nose/Throat/Neck No headache 06/28/2015 Cardiovascular No chest pain/pressure 06/28/2015 Cardiovascular No edema 06/28/2015 Cardiovascular No near-syncope/dizziness 06/28/2015 Cardiovascular No syncope 06/28/2015 Respiratory No productive sputum 06/28/2015 Respiratory No chest congestion 06/28/2015 Respiratory No chest tightness 06/28/2015 Respiratory No cough 06/28/2015 Respiratory No dyspnea 06/28/2015 Gastrointestinal No abdominal pain 06/28/2015 Gastrointestinal No constipation 06/28/2015 Gastrointestinal No diarrhea 06/28/2015 Genitourinary/Nephrology No breast complaint 06/28/2015 Genitourinary/Nephrology No dysuria 06/28/2015 Genitourinary/Nephrology No hematuria 06/28/2015 Genitourinary/Nephrology No menopausal symptoms 06/28/2015 Genitourinary/Nephrology No nocturia 06/28/2015 Genitourinary/Nephrology No Pap smear abnormality 06/28/2015 Genitourinary/Nephrology No urinary urgency 06/28/2015 Genitourinary/Nephrology No urinary frequency 06/28/2015 Genitourinary/Nephrology No urinary incontinence 06/28/2015 Genitourinary/Nephrology No vaginal discharge 06/28/2015 Musculoskeletal No joint complaint 06/28/2015 Dermatologic No rash 06/28/2015 Dermatologic No scar 06/28/2015 Neurologic No alteration of consciousness 06/28/2015 Psychiatric No anxiety 06/28/2015 Psychiatric No depression 06/28/2015 Constitutional No recent illness 05/23/2014 Constitutional No anorexia 05/23/2014 Constitutional No night sweats 05/23/2014 Constitutional No chills 05/23/2014 Constitutional No diaphoresis 05/23/2014 Constitutional No fatigue 05/23/2014 Constitutional No fever 05/23/2014 Constitutional No insomnia 05/23/2014 Constitutional No malaise 05/23/2014 Constitutional No weight loss 05/23/2014 Constitutional No weight gain 05/23/2014 Constitutional No recent illness 04/24/2014 Constitutional No fatigue 04/24/2014 Constitutional No fever 04/24/2014 Constitutional No insomnia 04/24/2014 Eyes No eye discharge 04/24/2014 Eyes No eye erythema 04/24/2014 Ears/Nose/Throat/Neck No headache 04/24/2014 Cardiovascular No chest pain/pressure 04/24/2014 Cardiovascular No edema 04/24/2014 Cardiovascular No near-syncope/dizziness 04/24/2014 Cardiovascular No syncope 04/24/2014 Respiratory No productive sputum 04/24/2014 Respiratory No chest congestion 04/24/2014 Respiratory No chest tightness 04/24/2014 Respiratory No cough 04/24/2014 Respiratory No dyspnea 04/24/2014 Gastrointestinal No abdominal pain 04/24/2014 Gastrointestinal No constipation 04/24/2014 Gastrointestinal No diarrhea 04/24/2014 Genitourinary/Nephrology No breast complaint 04/24/2014 Genitourinary/Nephrology No dysuria 04/24/2014 Genitourinary/Nephrology No hematuria 04/24/2014 Genitourinary/Nephrology No menopausal symptoms 04/24/2014 Genitourinary/Nephrology No nocturia 04/24/2014 Genitourinary/Nephrology No Pap smear abnormality 04/24/2014 Genitourinary/Nephrology No urinary urgency 04/24/2014 Genitourinary/Nephrology No urinary frequency 04/24/2014 Genitourinary/Nephrology No urinary incontinence 04/24/2014 Genitourinary/Nephrology No vaginal discharge 04/24/2014 Musculoskeletal No joint complaint 04/24/2014 Neurologic No alteration of consciousness 04/24/2014 Psychiatric No anxiety 04/24/2014 Psychiatric No depression 04/24/2014 Neurologic headache 04/24/2014 Neurologic pain, back 04/24/2014 Dermatologic No rash 04/24/2014 Dermatologic No scar 04/24/2014 Musculoskeletal back pain 04/24/2014 Musculoskeletal neck pain 04/24/2014 Cardiovascular No chest pain/pressure 02/14/2013 Cardiovascular No edema 02/14/2013 Cardiovascular No near-syncope/dizziness 02/14/2013 Cardiovascular No syncope 02/14/2013 Constitutional No fatigue 02/14/2013 Constitutional No fever 02/14/2013 Constitutional No insomnia 02/14/2013 Constitutional No recent illness 02/14/2013 Ears/Nose/Throat/Neck No headache 02/14/2013 Eyes No eye discharge 02/14/2013 Eyes No eye erythema 02/14/2013 Gastrointestinal No abdominal pain 02/14/2013 Gastrointestinal No constipation 02/14/2013 Gastrointestinal No diarrhea 02/14/2013 Genitourinary/Nephrology No breast complaint 02/14/2013 Genitourinary/Nephrology No dysuria 02/14/2013 Genitourinary/Nephrology No hematuria 02/14/2013 Genitourinary/Nephrology No urinary frequency 02/14/2013 Genitourinary/Nephrology No urinary incontinence 02/14/2013 Genitourinary/Nephrology No urinary urgency 02/14/2013 Genitourinary/Nephrology No vaginal discharge 02/14/2013 Genitourinary/Nephrology No menopausal symptoms 02/14/2013 Genitourinary/Nephrology No nocturia 02/14/2013 Genitourinary/Nephrology No Pap smear abnormality 02/14/2013 Musculoskeletal No joint complaint 02/14/2013 Neurologic No alteration of consciousness 02/14/2013 Respiratory No chest congestion 02/14/2013 Respiratory No chest tightness 02/14/2013 Respiratory No cough 02/14/2013 Respiratory No dyspnea 02/14/2013 Respiratory No productive sputum 02/14/2013 Constitutional No recent illness 02/16/2012 Constitutional No anorexia 02/16/2012 Constitutional No night sweats 02/16/2012 Constitutional No diaphoresis 02/16/2012 Constitutional No chills 02/16/2012 Constitutional No fatigue 02/16/2012 Constitutional No fever 02/16/2012 Eyes No eye discharge 02/16/2012 Eyes No eye erythema 02/16/2012 Ears/Nose/Throat/Neck No headache 02/16/2012 Ears/Nose/Throat/Neck No nasal allergies 02/16/2012 Ears/Nose/Throat/Neck No nasal discharge 02/16/2012 Ears/Nose/Throat/Neck No dizziness 02/16/2012 Ears/Nose/Throat/Neck No oral lesion 02/16/2012 Ears/Nose/Throat/Neck No otalgia 02/16/2012 Ears/Nose/Throat/Neck No sinus congestion 02/16/2012 Ears/Nose/Throat/Neck No sore throat 02/16/2012 Cardiovascular No chest pain/pressure 02/16/2012 Cardiovascular No edema 02/16/2012 Cardiovascular No dyspnea 02/16/2012 Cardiovascular No hypertension 02/16/2012 Respiratory No productive sputum 02/16/2012 Respiratory No chest congestion 02/16/2012 Respiratory No dyspnea on exertion 02/16/2012 Respiratory No dyspnea 02/16/2012 Gastrointestinal No vomiting 02/16/2012 Gastrointestinal No nausea 02/16/2012 Gastrointestinal No abdominal pain 02/16/2012 Gastrointestinal No constipation 02/16/2012 Gastrointestinal No diarrhea 02/16/2012 Genitourinary/Nephrology No dysuria 02/16/2012 Dermatologic No rash 02/16/2012 Neurologic No alteration of consciousness 02/16/2012 Neurologic paresthesia 02/16/2012 Neurologic No syncope 02/16/2012 Neurologic No weakness 02/16/2012 Constitutional No fatigue 01/05/2012 Constitutional No fever 01/05/2012 Constitutional No insomnia 01/05/2012 Constitutional No recent illness 01/05/2012 Eyes No eye discharge 01/05/2012 Ears/Nose/Throat/Neck No headache 01/05/2012 Cardiovascular No chest pain/pressure 01/05/2012 Cardiovascular No edema 01/05/2012 Cardiovascular No near-syncope/dizziness 01/05/2012 Cardiovascular No syncope 01/05/2012 Respiratory No chest congestion 01/05/2012 Respiratory No chest tightness 01/05/2012 Respiratory No cough 01/05/2012 Gastrointestinal No abdominal pain 01/05/2012 Gastrointestinal No constipation 01/05/2012 Gastrointestinal No diarrhea 01/05/2012 Musculoskeletal No joint complaint 01/05/2012 Neurologic No alteration of consciousness 01/05/2012 Genitourinary/Nephrology No vaginal discharge 01/05/2012 Genitourinary/Nephrology No dysuria 01/05/2012 Genitourinary/Nephrology No breast complaint 01/05/2012 Eyes No eye erythema 01/05/2012 Respiratory No dyspnea 01/05/2012 Respiratory No productive sputum 01/05/2012 Genitourinary/Nephrology No hematuria 01/05/2012 Genitourinary/Nephrology No urinary frequency 01/05/2012 Genitourinary/Nephrology No urinary incontinence 01/05/2012 Genitourinary/Nephrology No urinary urgency 01/05/2012 Genitourinary/Nephrology No menopausal symptoms 01/05/2012 Genitourinary/Nephrology No nocturia 01/05/2012 Genitourinary/Nephrology No Pap smear abnormality 01/05/2012 Constitutional night sweats 11/13/2011 Constitutional chills 11/13/2011 Constitutional No fever 11/13/2011 Cardiovascular No chest pain/pressure 11/13/2011 Cardiovascular No dyspnea 11/13/2011 Cardiovascular No edema 11/13/2011 Cardiovascular fatigue 11/13/2011 Ears/Nose/Throat/Neck headache 11/13/2011 Ears/Nose/Throat/Neck sinus congestion 11/13/2011 Ears/Nose/Throat/Neck sore throat 11/13/2011 Psychiatric No anxiety 11/13/2011 Psychiatric No depression 11/13/2011 Dermatologic No rash 11/13/2011 Dermatologic No sores 11/13/2011 Musculoskeletal No stiffness 11/13/2011 Musculoskeletal No back pain 11/13/2011 Musculoskeletal No arthralgia(s) 11/13/2011 Gastrointestinal No abdominal pain 11/13/2011 Gastrointestinal No constipation 11/13/2011 Gastrointestinal No diarrhea 11/13/2011 Respiratory cough 11/13/2011 Respiratory No chest congestion 11/13/2011 Respiratory No chest tightness 11/13/2011 Constitutional insomnia 09/29/2011 Constitutional No recent illness 09/29/2011 Constitutional No chills 09/29/2011 Eyes No vision change 09/29/2011 Ears/Nose/Throat/Neck No dizziness 09/29/2011 Ears/Nose/Throat/Neck No headache 09/29/2011 Ears/Nose/Throat/Neck hearing loss 09/29/2011 Cardiovascular No chest pain/pressure 09/29/2011 Cardiovascular No near-syncope/dizziness 09/29/2011 Respiratory No cough 09/29/2011 Respiratory No chest tightness 09/29/2011 Respiratory No chest congestion 09/29/2011 Gastrointestinal No abdominal pain 09/29/2011 Gastrointestinal No constipation 09/29/2011 Gastrointestinal No diarrhea 09/29/2011 Musculoskeletal No arthralgia(s) 09/29/2011 Dermatologic No rash 09/29/2011 Dermatologic No sores 09/29/2011 Psychiatric anxiety 09/29/2011 Psychiatric No depression 09/29/2011 Physical Exam Exam Name System Name Item Name Status Result Effective Dates Notes Full Exam - General 1994 Constitutional general appearance Overall: well developed 10/26/2018 None Full Exam - General 1995 Constitutional general appearance Overall: in no acute distress 10/26/2018 None Full Exam - General 1994 Constitutional general appearance Overall: well nourished 10/26/2018 None Full Exam - General 1994 Eyes conjunctiva/eyelids Overall: conjunctiva clear 10/26/2018 None Full Exam - General 1994 Eyes conjunctiva/eyelids Overall: cornea clear 10/26/2018 None Full Exam - General 1994 Eyes conjunctiva/eyelids Overall: eyelids normal 10/26/2018 None Full Exam - General 1994 Eyes pupils and irises Overall: pupils equal, round, reactive to light and accomodation 10/26/2018 None Full Exam - General 1994 Ears/Nose/Throat otoscopic exam Overall: tympanic membranes clear 10/26/2018 None Full Exam - General 1994 Ears/Nose/Throat otoscopic exam External auditory canal: minimal cerumen 10/26/2018 None Full Exam - General 1994 Ears/Nose/Throat oral cavity/pharynx/larynx Overall: oral mucosa clear 10/26/2018 None Full Exam - General 1994 Ears/Nose/Throat oral cavity/pharynx/larynx Overall: oropharyngeal mucosa clear 10/26/2018 None Full Exam - General 1994 Ears/Nose/Throat oral cavity/pharynx/larynx Overall: no masses 10/26/2018 None Full Exam - General 1994 Respiratory auscultation Overall: breath sounds clear bilaterally 10/26/2018 None Full Exam - General 1994 Respiratory respiratory effort/rhythm Overall: no retractions 10/26/2018 None Full Exam - General 1994 Respiratory respiratory effort/rhythm Overall: normal rate 10/26/2018 None Full Exam - General 1994 Cardiovascular extremities Overall: no clubbing 10/26/2018 None Full Exam - General 1994 Cardiovascular auscultation of heart Overall: regular rate 10/26/2018 None Full Exam - General 1994 Cardiovascular auscultation of heart Overall: normal heart sounds 10/26/2018 None Full Exam - General 1994 Cardiovascular auscultation of heart Overall: no murmurs 10/26/2018 None Full Exam - General 1994 Abdomen abdominal exam Overall: no tenderness 10/26/2018 None Full Exam - General 1994 Abdomen abdominal exam Overall: normal bowel sounds 10/26/2018 None Full Exam - General 1994 Lymphatic neck nodes Overall: anterior cervical chain benign 10/26/2018 None Full Exam - General 1994 Lymphatic neck nodes Overall: posterior cervical chain benign 10/26/2018 None Full Exam - General 1994 Musculoskeletal spine, ribs and pelvis Overall: spine benign 10/26/2018 None Full Exam - General 1994 Musculoskeletal gait and station Overall: normal gait 10/26/2018 None Full Exam - General 1994 Musculoskeletal gait and station Overall: normal station 10/26/2018 None Full Exam - General 1994 Musculoskeletal head and neck Overall: head atraumatic 10/26/2018 None Full Exam - General 1994 Musculoskeletal head and neck Overall: cervical spine benign 10/26/2018 None Full Exam - General 1994 Neurologic cranial nerves Overall: crainial nerves 2 - 12 grossly intact 10/26/2018 None Full Exam - General 1994 Psychiatric orientation/consciousness Overall: oriented to person, place and time 10/26/2018 None Full Exam - General 1994 Ears/Nose/Throat otoscopic exam External auditory canal: complete cerumen impaction 10/26/2018 None Full Exam - General 1994 Ears/Nose/Throat otoscopic exam Tympanic membrane: not visualized 10/26/2018 None Full Exam - Genitourinary/Female Constitutional general appearance Overall: well nourished 02/22/2018 None Full Exam - Genitourinary/Female Constitutional general appearance Overall: well developed 02/22/2018 None Full Exam - Genitourinary/Female Constitutional general appearance Overall: in no acute distress 02/22/2018 None Full Exam - Genitourinary/Female Eyes conjunctiva/eyelids Overall: conjunctiva clear 02/22/2018 None Full Exam - Genitourinary/Female Eyes conjunctiva/eyelids Overall: cornea clear 02/22/2018 None Full Exam - Genitourinary/Female Eyes conjunctiva/eyelids Overall: eyelids normal 02/22/2018 None Full Exam - Genitourinary/Female Ears/Nose/Throat lips/teeth/gingiva Overall: benign lips 02/22/2018 None Full Exam - Genitourinary/Female Ears/Nose/Throat oral cavity/pharynx/larynx Overall: oral mucosa clear 02/22/2018 None Full Exam - Genitourinary/Female Respiratory respiratory effort/rhythm Overall: no retractions 02/22/2018 None Full Exam - Genitourinary/Female Respiratory respiratory effort/rhythm Overall: normal rate 02/22/2018 None Full Exam - Genitourinary/Female Respiratory auscultation Overall: breath sounds clear bilaterally 02/22/2018 None Full Exam - Genitourinary/Female Cardiovascular auscultation of heart Overall: regular rate 02/22/2018 None Full Exam - Genitourinary/Female Cardiovascular auscultation of heart Overall: normal heart sounds 02/22/2018 None Full Exam - Genitourinary/Female Psychiatric orientation/consciousness Overall: oriented to person, place and time 02/22/2018 None Full Exam - Genitourinary/Female Psychiatric appearance Overall: well-groomed, good eye contact 02/22/2018 None Full Exam - Genitourinary/Female Psychiatric speech Overall: normal quality, quantity, rate 02/22/2018 None Full Exam - Genitourinary/Female Psychiatric speech Overall: normal quality, no aphasia 02/22/2018 None Full Exam - General 1994 Constitutional general appearance Overall: well developed 01/21/2018 None Full Exam - General 1994 Constitutional general appearance Overall: in no acute distress 01/21/2018 None Full Exam - General 1994 Constitutional general appearance Overall: well nourished 01/21/2018 None Full Exam - General 1994 Eyes conjunctiva/eyelids Overall: conjunctiva clear 01/21/2018 None Full Exam - General 1994 Eyes conjunctiva/eyelids Overall: cornea clear 01/21/2018 None Full Exam - General 1994 Eyes conjunctiva/eyelids Overall: eyelids normal 01/21/2018 None Full Exam - General 1994 Eyes pupils and irises Overall: pupils equal, round, reactive to light and accomodation 01/21/2018 None Full Exam - General 1994 Ears/Nose/Throat otoscopic exam Overall: tympanic membranes clear 01/21/2018 None Full Exam - General 1994 Ears/Nose/Throat otoscopic exam External auditory canal: minimal cerumen 01/21/2018 None Full Exam - General 1994 Ears/Nose/Throat oral cavity/pharynx/larynx Overall: oral mucosa clear 01/21/2018 None Full Exam - General 1994 Ears/Nose/Throat oral cavity/pharynx/larynx Overall: oropharyngeal mucosa clear 01/21/2018 None Full Exam - General 1994 Ears/Nose/Throat oral cavity/pharynx/larynx Overall: no masses 01/21/2018 None Full Exam - General 1994 Respiratory auscultation Overall: breath sounds clear bilaterally 01/21/2018 None Full Exam - General 1994 Respiratory respiratory effort/rhythm Overall: no retractions 01/21/2018 None Full Exam - General 1994 Respiratory respiratory effort/rhythm Overall: normal rate 01/21/2018 None Full Exam - General 1994 Cardiovascular extremities Overall: no clubbing 01/21/2018 None Full Exam - General 1994 Cardiovascular auscultation of heart Overall: regular rate 01/21/2018 None Full Exam - General 1994 Cardiovascular auscultation of heart Overall: normal heart sounds 01/21/2018 None Full Exam - General 1994 Cardiovascular auscultation of heart Overall: no murmurs 01/21/2018 None Full Exam - General 1994 Abdomen abdominal exam Overall: no tenderness 01/21/2018 None Full Exam - General 1994 Abdomen abdominal exam Overall: normal bowel sounds 01/21/2018 None Full Exam - General 1994 Lymphatic neck nodes Overall: anterior cervical chain benign 01/21/2018 None Full Exam - General 1994 Lymphatic neck nodes Overall: posterior cervical chain benign 01/21/2018 None Full Exam - General 1994 Musculoskeletal spine, ribs and pelvis Overall: spine benign 01/21/2018 None Full Exam - General 1994 Musculoskeletal gait and station Overall: normal gait 01/21/2018 None Full Exam - General 1994 Musculoskeletal gait and station Overall: normal station 01/21/2018 None Full Exam - General 1994 Musculoskeletal head and neck Overall: head atraumatic 01/21/2018 None Full Exam - General 1994 Musculoskeletal head and neck Overall: cervical spine benign 01/21/2018 None Full Exam - General 1994 Neurologic deep tendon reflexes Overall: deep tendon reflexes intact 01/21/2018 None Full Exam - General 1994 Neurologic cranial nerves Overall: crainial nerves 2 - 12 grossly intact 01/21/2018 None Full Exam - General 1994 Psychiatric orientation/consciousness Overall: oriented to person, place and time 01/21/2018 None Full Exam - General 1994 Abdomen abdominal exam Epigastric: tender to palpation 01/21/2018 None Full Exam - Orthopedics Constitutional general appearance Overall: well nourished 09/01/2017 None Full Exam - Orthopedics Constitutional general appearance Overall: well developed 09/01/2017 None Full Exam - Orthopedics Constitutional general appearance Overall: in no acute distress 09/01/2017 None Full Exam - Orthopedics Eyes conjunctiva/eyelids Overall: conjunctiva clear 09/01/2017 None Full Exam - Orthopedics Eyes conjunctiva/eyelids Overall: eyelids normal 09/01/2017 None Full Exam - Orthopedics Ears/Nose/Throat lips/teeth/gingiva Overall: benign lips 09/01/2017 None Full Exam - Orthopedics Ears/Nose/Throat oral cavity/pharynx/larynx Overall: oral mucosa clear 09/01/2017 None Full Exam - Orthopedics Respiratory respiratory effort/rhythm Overall: no retractions 09/01/2017 None Full Exam - Orthopedics Respiratory respiratory effort/rhythm Overall: normal rate 09/01/2017 None Full Exam - Orthopedics Psychiatric orientation/consciousness Overall: oriented to person, place and time 09/01/2017 None Full Exam - Orthopedics Psychiatric mood and affect Overall: normal mood and affect 09/01/2017 None Full Exam - Orthopedics Psychiatric appearance Overall: well-groomed, good eye contact 09/01/2017 None Full Exam - Orthopedics MS: left lower extremity insp & palp - LLE Lower leg: normal appearance 09/01/2017 None Full Exam - Orthopedics MS: left lower extremity insp & palp - LLE Lower leg: tenderness 09/01/2017 None Full Exam - Orthopedics MS: head/neck insp & palp - H/N Overall: head atraumatic 09/01/2017 None Full Exam - Orthopedics Cardiovascular examination of vasculature Overall: good capillary refill 09/01/2017 None Full Exam - Orthopedics Cardiovascular examination of vasculature Overall: warm extremities 09/01/2017 None Full Exam - General 1994 Constitutional general appearance Overall: well developed 06/18/2017 None Full Exam - General 1994 Constitutional general appearance Overall: in no acute distress 06/18/2017 None Full Exam - General 1994 Constitutional general appearance Overall: well nourished 06/18/2017 None Full Exam - General 1994 Eyes conjunctiva/eyelids Overall: conjunctiva clear 06/18/2017 None Full Exam - General 1994 Eyes conjunctiva/eyelids Overall: cornea clear 06/18/2017 None Full Exam - General 1994 Eyes conjunctiva/eyelids Overall: eyelids normal 06/18/2017 None Full Exam - General 1994 Eyes pupils and irises Overall: pupils equal, round, reactive to light and accomodation 06/18/2017 None Full Exam - General 1994 Ears/Nose/Throat oral cavity/pharynx/larynx Overall: oral mucosa clear 06/18/2017 None Full Exam - General 1994 Ears/Nose/Throat oral cavity/pharynx/larynx Overall: oropharyngeal mucosa clear 06/18/2017 None Full Exam - General 1994 Ears/Nose/Throat oral cavity/pharynx/larynx Overall: no masses 06/18/2017 None Full Exam - General 1994 Respiratory auscultation Overall: breath sounds clear bilaterally 06/18/2017 None Full Exam - General 1994 Respiratory respiratory effort/rhythm Overall: no retractions 06/18/2017 None Full Exam - General 1994 Respiratory respiratory effort/rhythm Overall: normal rate 06/18/2017 None Full Exam - General 1994 Cardiovascular extremities Overall: no clubbing 06/18/2017 None Full Exam - General 1994 Cardiovascular auscultation of heart Overall: regular rate 06/18/2017 None Full Exam - General 1994 Cardiovascular auscultation of heart Overall: normal heart sounds 06/18/2017 None Full Exam - General 1994 Cardiovascular auscultation of heart Overall: no murmurs 06/18/2017 None Full Exam - General 1994 Abdomen abdominal exam Overall: no tenderness 06/18/2017 None Full Exam - General 1994 Abdomen abdominal exam Overall: normal bowel sounds 06/18/2017 None Full Exam - General 1994 Lymphatic neck nodes Overall: anterior cervical chain benign 06/18/2017 None Full Exam - General 1994 Lymphatic neck nodes Overall: posterior cervical chain benign 06/18/2017 None Full Exam - General 1994 Musculoskeletal spine, ribs and pelvis Overall: spine benign 06/18/2017 None Full Exam - General 1994 Musculoskeletal gait and station Overall: normal gait 06/18/2017 None Full Exam - General 1994 Musculoskeletal gait and station Overall: normal station 06/18/2017 None Full Exam - General 1994 Musculoskeletal head and neck Overall: head atraumatic 06/18/2017 None Full Exam - General 1994 Musculoskeletal head and neck Overall: cervical spine benign 06/18/2017 None Full Exam - General 1994 Neurologic deep tendon reflexes Overall: deep tendon reflexes intact 06/18/2017 None Full Exam - General 1994 Neurologic cranial nerves Overall: crainial nerves 2 - 12 grossly intact 06/18/2017 None Full Exam - General 1994 Psychiatric orientation/consciousness Overall: oriented to person, place and time 06/18/2017 None Full Exam - General 1994 Ears/Nose/Throat otoscopic exam External auditory canal: minimal cerumen 06/18/2017 None Full Exam - General 1994 Ears/Nose/Throat otoscopic exam Overall: tympanic membranes clear 06/18/2017 None Full Exam - General 1994 Constitutional general appearance Overall: well developed 02/19/2017 None Full Exam - General 1994 Constitutional general appearance Overall: in no acute distress 02/19/2017 None Full Exam - General 1994 Constitutional general appearance Overall: well nourished 02/19/2017 None Full Exam - General 1994 Eyes conjunctiva/eyelids Overall: conjunctiva clear 02/19/2017 None Full Exam - General 1994 Eyes conjunctiva/eyelids Overall: eyelids normal 02/19/2017 None Full Exam - General 1994 Ears/Nose/Throat lips/teeth/gingiva Overall: benign lips 02/19/2017 None Full Exam - General 1994 Ears/Nose/Throat oral cavity/pharynx/larynx Overall: oral mucosa clear 02/19/2017 None Full Exam - General 1994 Respiratory auscultation Overall: breath sounds clear bilaterally 02/19/2017 None Full Exam - General 1994 Respiratory respiratory effort/rhythm Overall: no retractions 02/19/2017 None Full Exam - General 1994 Respiratory respiratory effort/rhythm Overall: normal rate 02/19/2017 None Full Exam - General 1994 Cardiovascular auscultation of heart Overall: regular rate 02/19/2017 None Full Exam - General 1994 Cardiovascular auscultation of heart Overall: normal heart sounds 02/19/2017 None Full Exam - General 1994 Cardiovascular extremities Overall: no clubbing 02/19/2017 None Full Exam - General 1994 Abdomen abdominal exam Overall: no tenderness 02/19/2017 None Full Exam - General 1994 Abdomen abdominal exam Overall: normal bowel sounds 02/19/2017 None Full Exam - General 1994 Musculoskeletal gait and station Overall: normal gait 02/19/2017 None Full Exam - General 1994 Musculoskeletal gait and station Overall: normal station 02/19/2017 None Full Exam - General 1994 Musculoskeletal upper extremity Inspection - shoulder: swelling 02/19/2017 very mild, just above clavicals Full Exam - General 1994 Musculoskeletal head and neck Overall: head atraumatic 02/19/2017 None Full Exam - General 1994 Psychiatric orientation/consciousness Overall: oriented to person, place and time 02/19/2017 None Full Exam - General 1994 Psychiatric mood and affect Overall: normal mood and affect 02/19/2017 None Full Exam - General 1994 Psychiatric appearance Overall: well-groomed, good eye contact 02/19/2017 None Full Exam - General 1994 Neurologic cranial nerves Overall: crainial nerves 2 - 12 grossly intact 02/19/2017 None Full Exam - Genitourinary/Female Constitutional general appearance Overall: well nourished 02/05/2017 None Full Exam - Genitourinary/Female Constitutional general appearance Overall: well developed 02/05/2017 None Full Exam - Genitourinary/Female Constitutional general appearance Overall: in no acute distress 02/05/2017 None Full Exam - Genitourinary/Female Eyes conjunctiva/eyelids Overall: conjunctiva clear 02/05/2017 None Full Exam - Genitourinary/Female Eyes pupils and irises Overall: pupils equal, round, reactive to light and accomodation 02/05/2017 None Full Exam - Genitourinary/Female Ears/Nose/Throat otoscopic exam Overall: external auditory canals clear 02/05/2017 None Full Exam - Genitourinary/Female Ears/Nose/Throat otoscopic exam Overall: tympanic membranes clear 02/05/2017 None Full Exam - Genitourinary/Female Ears/Nose/Throat oral cavity/pharynx/larynx Overall: oral mucosa clear 02/05/2017 None Full Exam - Genitourinary/Female Respiratory auscultation Overall: breath sounds clear bilaterally 02/05/2017 None Full Exam - Genitourinary/Female Respiratory respiratory effort/rhythm Overall: no retractions 02/05/2017 None Full Exam - Genitourinary/Female Respiratory respiratory effort/rhythm Overall: normal rate 02/05/2017 None Full Exam - Genitourinary/Female Cardiovascular auscultation of heart Overall: regular rate 02/05/2017 None Full Exam - Genitourinary/Female Cardiovascular auscultation of heart Overall: normal heart sounds 02/05/2017 None Full Exam - Genitourinary/Female Cardiovascular examination of vasculature Overall: no clubbing, cyanosis, edema 02/05/2017 None Full Exam - Genitourinary/Female Abdomen abdominal exam Overall: non tender, non distended 02/05/2017 None Full Exam - Genitourinary/Female Abdomen abdominal exam Overall: normal bowel sounds 02/05/2017 None Full Exam - Genitourinary/Female Abdomen abdominal exam Overall: no mass lesions 02/05/2017 None Full Exam - Genitourinary/Female Genitourinary breast inspection & palpation Overall: breasts symmetric and without lesions 02/05/2017 None Full Exam - Genitourinary/Female Genitourinary breast inspection & palpation Overall: breasts non-tender, no mass lesions 02/05/2017 None Full Exam - Genitourinary/Female Genitourinary breast inspection & palpation Overall: no nipple discharge 02/05/2017 None Full Exam - Genitourinary/Female Genitourinary external genitalia Overall: no lesions 02/05/2017 None Full Exam - Genitourinary/Female Genitourinary urethral meatus Overall: normal size and location 02/05/2017 None Full Exam - Genitourinary/Female Genitourinary bladder Palpation: non-tender 02/05/2017 None Full Exam - Genitourinary/Female Genitourinary bladder Palpation: no masses 02/05/2017 None Full Exam - Genitourinary/Female Genitourinary vagina Overall: no lesions 02/05/2017 None Full Exam - Genitourinary/Female Genitourinary vagina Overall: normal tone 02/05/2017 None Full Exam - Genitourinary/Female Genitourinary vagina Overall: normal pelvic support 02/05/2017 None Full Exam - Genitourinary/Female Genitourinary vagina Introitus: normal appearance 02/05/2017 None Full Exam - Genitourinary/Female Genitourinary vagina Vaginal discharge: absent 02/05/2017 None Full Exam - Genitourinary/Female Genitourinary vagina Vaginal discharge: white 02/05/2017 None Full Exam - Genitourinary/Female Genitourinary vagina Vagina: no lesions present 02/05/2017 None Full Exam - Genitourinary/Female Genitourinary vagina Vaginal tone: a normal exam 02/05/2017 None Full Exam - Genitourinary/Female Genitourinary cervix Inspection: parous os 02/05/2017 None Full Exam - Genitourinary/Female Genitourinary cervix Cervical discharge: white 02/05/2017 None Full Exam - Genitourinary/Female Genitourinary uterus Overall: normal size 02/05/2017 None Full Exam - Genitourinary/Female Genitourinary uterus Overall: non tender 02/05/2017 None Full Exam - Genitourinary/Female Genitourinary adnexa/parametria Overall: no tenderness 02/05/2017 None Full Exam - Genitourinary/Female Genitourinary adnexa/parametria Overall: no enlargement 02/05/2017 None Full Exam - Genitourinary/Female Genitourinary anus and perineum Overall: good sphincter tone, no masses, no lesions 02/05/2017 None Full Exam - Genitourinary/Female Lymphatic inspection and palpation of nodes Overall: anterior cervical chain benign 02/05/2017 None Full Exam - Genitourinary/Female Lymphatic inspection and palpation of nodes Overall: posterior cervical chain benign 02/05/2017 None Full Exam - Genitourinary/Female Musculoskeletal head and neck Overall: head atraumatic 02/05/2017 None Full Exam - Genitourinary/Female Musculoskeletal gait and station Overall: normal gait 02/05/2017 None Full Exam - Genitourinary/Female Musculoskeletal gait and station Overall: normal station 02/05/2017 None Full Exam - Genitourinary/Female Integument inspection and palpation of skin Overall: no induration, no tenderness 02/05/2017 pt has multiple tattoos on various body parts on the left foot, left upper arm, upper back, etc Full Exam - Genitourinary/Female Integument inspection and palpation of skin Location: chest 02/05/2017 None Full Exam - Genitourinary/Female Neurologic mood and affect Overall: normal mood 02/05/2017 None Full Exam - Genitourinary/Female Neurologic mood and affect Overall: normal affect 02/05/2017 None Full Exam - Genitourinary/Female Neurologic orientation Overall: oriented to person, place and time 02/05/2017 None Full Exam - Genitourinary/Female Psychiatric orientation/consciousness Overall: oriented to person, place and time 02/05/2017 None Full Exam - Genitourinary/Female Chest/Breast breast inspection and palpation Overall: breasts symmetric and with scars from breast reduction 02/05/2017 None Full Exam - General 1994 Constitutional general appearance Overall: well developed 11/20/2016 None Full Exam - General 1994 Constitutional general appearance Overall: in no acute distress 11/20/2016 None Full Exam - General 1994 Constitutional general appearance Overall: well nourished 11/20/2016 None Full Exam - General 1994 Eyes conjunctiva/eyelids Overall: conjunctiva clear 11/20/2016 None Full Exam - General 1994 Eyes conjunctiva/eyelids Overall: cornea clear 11/20/2016 None Full Exam - General 1994 Eyes conjunctiva/eyelids Overall: eyelids normal 11/20/2016 None Full Exam - General 1994 Eyes pupils and irises Overall: pupils equal, round, reactive to light and accomodation 11/20/2016 None Full Exam - General 1994 Ears/Nose/Throat otoscopic exam External auditory canal: minimal cerumen 11/20/2016 None Full Exam - General 1994 Ears/Nose/Throat otoscopic exam External auditory canal: complete cerumen impaction 11/20/2016 None Full Exam - General 1994 Ears/Nose/Throat otoscopic exam Tympanic membrane: not visualized 11/20/2016 None Full Exam - General 1994 Ears/Nose/Throat oral cavity/pharynx/larynx Overall: oral mucosa clear 11/20/2016 None Full Exam - General 1994 Ears/Nose/Throat oral cavity/pharynx/larynx Overall: oropharyngeal mucosa clear 11/20/2016 None Full Exam - General 1994 Ears/Nose/Throat oral cavity/pharynx/larynx Overall: no masses 11/20/2016 None Full Exam - General 1994 Respiratory auscultation Overall: breath sounds clear bilaterally 11/20/2016 None Full Exam - General 1994 Respiratory respiratory effort/rhythm Overall: no retractions 11/20/2016 None Full Exam - General 1994 Respiratory respiratory effort/rhythm Overall: normal rate 11/20/2016 None Full Exam - General 1994 Cardiovascular extremities Overall: no clubbing 11/20/2016 None Full Exam - General 1994 Cardiovascular auscultation of heart Overall: regular rate 11/20/2016 None Full Exam - General 1994 Cardiovascular auscultation of heart Overall: normal heart sounds 11/20/2016 None Full Exam - General 1994 Cardiovascular auscultation of heart Overall: no murmurs 11/20/2016 None Full Exam - General 1994 Abdomen abdominal exam Overall: no tenderness 11/20/2016 None Full Exam - General 1994 Abdomen abdominal exam Overall: normal bowel sounds 11/20/2016 None Full Exam - General 1994 Lymphatic neck nodes Overall: anterior cervical chain benign 11/20/2016 None Full Exam - General 1994 Lymphatic neck nodes Overall: posterior cervical chain benign 11/20/2016 None Full Exam - General 1994 Musculoskeletal spine, ribs and pelvis Overall: spine benign 11/20/2016 None Full Exam - General 1994 Musculoskeletal gait and station Overall: normal gait 11/20/2016 None Full Exam - General 1994 Musculoskeletal gait and station Overall: normal station 11/20/2016 None Full Exam - General 1994 Musculoskeletal head and neck Overall: head atraumatic 11/20/2016 None Full Exam - General 1994 Musculoskeletal head and neck Overall: cervical spine benign 11/20/2016 None Full Exam - General 1994 Neurologic deep tendon reflexes Overall: deep tendon reflexes intact 11/20/2016 None Full Exam - General 1994 Neurologic cranial nerves Overall: crainial nerves 2 - 12 grossly intact 11/20/2016 None Full Exam - General 1994 Psychiatric orientation/consciousness Overall: oriented to person, place and time 11/20/2016 None Full Exam - General 1994 Constitutional general appearance Overall: well developed 08/25/2016 None Full Exam - General 1994 Constitutional general appearance Overall: in no acute distress 08/25/2016 None Full Exam - General 1994 Constitutional general appearance Overall: well nourished 08/25/2016 None Full Exam - General 1994 Eyes conjunctiva/eyelids Overall: conjunctiva clear 08/25/2016 None Full Exam - General 1994 Eyes conjunctiva/eyelids Overall: cornea clear 08/25/2016 None Full Exam - General 1994 Eyes conjunctiva/eyelids Overall: eyelids normal 08/25/2016 None Full Exam - General 1994 Eyes pupils and irises Overall: pupils equal, round, reactive to light and accomodation 08/25/2016 None Full Exam - General 1994 Ears/Nose/Throat otoscopic exam External auditory canal: complete cerumen impaction 08/25/2016 None Full Exam - General 1994 Ears/Nose/Throat otoscopic exam Tympanic membrane: not visualized 08/25/2016 None Full Exam - General 1994 Ears/Nose/Throat oral cavity/pharynx/larynx Overall: oral mucosa clear 08/25/2016 None Full Exam - General 1994 Ears/Nose/Throat oral cavity/pharynx/larynx Overall: oropharyngeal mucosa clear 08/25/2016 None Full Exam - General 1994 Ears/Nose/Throat oral cavity/pharynx/larynx Overall: no masses 08/25/2016 None Full Exam - General 1994 Respiratory auscultation Overall: breath sounds clear bilaterally 08/25/2016 None Full Exam - General 1994 Respiratory respiratory effort/rhythm Overall: no retractions 08/25/2016 None Full Exam - General 1994 Respiratory respiratory effort/rhythm Overall: normal rate 08/25/2016 None Full Exam - General 1994 Cardiovascular extremities Overall: no clubbing 08/25/2016 None Full Exam - General 1994 Cardiovascular auscultation of heart Overall: regular rate 08/25/2016 None Full Exam - General 1994 Cardiovascular auscultation of heart Overall: normal heart sounds 08/25/2016 None Full Exam - General 1994 Cardiovascular auscultation of heart Overall: no murmurs 08/25/2016 None Full Exam - General 1994 Abdomen abdominal exam Overall: no tenderness 08/25/2016 None Full Exam - General 1994 Abdomen abdominal exam Overall: normal bowel sounds 08/25/2016 None Full Exam - General 1994 Lymphatic neck nodes Overall: anterior cervical chain benign 08/25/2016 None Full Exam - General 1994 Lymphatic neck nodes Overall: posterior cervical chain benign 08/25/2016 None Full Exam - General 1994 Musculoskeletal spine, ribs and pelvis Overall: spine benign 08/25/2016 None Full Exam - General 1994 Musculoskeletal gait and station Overall: normal gait 08/25/2016 None Full Exam - General 1994 Musculoskeletal gait and station Overall: normal station 08/25/2016 None Full Exam - General 1994 Musculoskeletal head and neck Overall: head atraumatic 08/25/2016 None Full Exam - General 1994 Musculoskeletal head and neck Overall: cervical spine benign 08/25/2016 None Full Exam - General 1994 Neurologic deep tendon reflexes Overall: deep tendon reflexes intact 08/25/2016 None Full Exam - General 1994 Neurologic cranial nerves Overall: crainial nerves 2 - 12 grossly intact 08/25/2016 None Full Exam - General 1994 Psychiatric orientation/consciousness Overall: oriented to person, place and time 08/25/2016 None Full Exam - General 1994 Ears/Nose/Throat otoscopic exam External auditory canal: minimal cerumen 08/25/2016 None Full Exam - General 1994 Constitutional general appearance Overall: well developed 12/13/2015 None Full Exam - General 1994 Constitutional general appearance Overall: in no acute distress 12/13/2015 None Full Exam - General 1994 Constitutional general appearance Overall: well nourished 12/13/2015 None Full Exam - General 1994 Eyes conjunctiva/eyelids Overall: conjunctiva clear 12/13/2015 None Full Exam - General 1994 Eyes conjunctiva/eyelids Overall: cornea clear 12/13/2015 None Full Exam - General 1994 Eyes conjunctiva/eyelids Overall: eyelids normal 12/13/2015 None Full Exam - General 1994 Eyes pupils and irises Overall: pupils equal, round, reactive to light and accomodation 12/13/2015 None Full Exam - General 1994 Ears/Nose/Throat otoscopic exam External auditory canal: complete cerumen impaction 12/13/2015 None Full Exam - General 1994 Ears/Nose/Throat otoscopic exam Tympanic membrane: not visualized 12/13/2015 None Full Exam - General 1994 Ears/Nose/Throat oral cavity/pharynx/larynx Overall: oral mucosa clear 12/13/2015 None Full Exam - General 1994 Ears/Nose/Throat oral cavity/pharynx/larynx Overall: oropharyngeal mucosa clear 12/13/2015 None Full Exam - General 1994 Ears/Nose/Throat oral cavity/pharynx/larynx Overall: no masses 12/13/2015 None Full Exam - General 1994 Respiratory auscultation Overall: breath sounds clear bilaterally 12/13/2015 None Full Exam - General 1994 Respiratory respiratory effort/rhythm Overall: no retractions 12/13/2015 None Full Exam - General 1994 Respiratory respiratory effort/rhythm Overall: normal rate 12/13/2015 None Full Exam - General 1994 Cardiovascular extremities Overall: no clubbing 12/13/2015 None Full Exam - General 1994 Cardiovascular auscultation of heart Overall: regular rate 12/13/2015 None Full Exam - General 1994 Cardiovascular auscultation of heart Overall: normal heart sounds 12/13/2015 None Full Exam - General 1994 Abdomen abdominal exam Overall: no tenderness 12/13/2015 None Full Exam - General 1994 Abdomen abdominal exam Overall: normal bowel sounds 12/13/2015 None Full Exam - General 1994 Lymphatic neck nodes Overall: anterior cervical chain benign 12/13/2015 None Full Exam - General 1994 Lymphatic neck nodes Overall: posterior cervical chain benign 12/13/2015 None Full Exam - General 1994 Musculoskeletal gait and station Overall: normal gait 12/13/2015 None Full Exam - General 1994 Musculoskeletal gait and station Overall: normal station 12/13/2015 None Full Exam - General 1994 Musculoskeletal head and neck Overall: head atraumatic 12/13/2015 None Full Exam - General 1994 Musculoskeletal head and neck Overall: cervical spine benign 12/13/2015 None Full Exam - General 1994 Neurologic cranial nerves Overall: crainial nerves 2 - 12 grossly intact 12/13/2015 None Full Exam - General 1994 Psychiatric orientation/consciousness Overall: oriented to person, place and time 12/13/2015 None Full Exam - General 1994 Musculoskeletal spine, ribs and pelvis Overall: good posture 12/13/2015 None Full Exam - General 1994 Psychiatric mood and affect Overall: normal mood and affect 12/13/2015 None Full Exam - General 1994 Psychiatric appearance Overall: well-groomed, good eye contact 12/13/2015 None Full Exam - General 1994 Psychiatric speech Overall: normal quality, no aphasia 12/13/2015 None Full Exam - General 1994 Psychiatric speech Overall: normal quality, quantity, rate 12/13/2015 None Full Exam - General 1994 Constitutional general appearance Overall: well developed 11/15/2015 None Full Exam - General 1994 Constitutional general appearance Overall: in no acute distress 11/15/2015 None Full Exam - General 1994 Constitutional general appearance Overall: well nourished 11/15/2015 None Full Exam - General 1994 Eyes conjunctiva/eyelids Overall: conjunctiva clear 11/15/2015 None Full Exam - General 1994 Eyes conjunctiva/eyelids Overall: cornea clear 11/15/2015 None Full Exam - General 1994 Eyes conjunctiva/eyelids Overall: eyelids normal 11/15/2015 None Full Exam - General 1994 Eyes pupils and irises Overall: pupils equal, round, reactive to light and accomodation 11/15/2015 None Full Exam - General 1994 Ears/Nose/Throat oral cavity/pharynx/larynx Overall: oral mucosa clear 11/15/2015 None Full Exam - General 1994 Ears/Nose/Throat oral cavity/pharynx/larynx Overall: oropharyngeal mucosa clear 11/15/2015 None Full Exam - General 1994 Ears/Nose/Throat oral cavity/pharynx/larynx Overall: no masses 11/15/2015 None Full Exam - General 1994 Respiratory auscultation Overall: breath sounds clear bilaterally 11/15/2015 None Full Exam - General 1994 Respiratory respiratory effort/rhythm Overall: no retractions 11/15/2015 None Full Exam - General 1994 Respiratory respiratory effort/rhythm Overall: normal rate 11/15/2015 None Full Exam - General 1994 Cardiovascular extremities Overall: no clubbing 11/15/2015 None Full Exam - General 1994 Cardiovascular auscultation of heart Overall: regular rate 11/15/2015 None Full Exam - General 1994 Cardiovascular auscultation of heart Overall: normal heart sounds 11/15/2015 None Full Exam - General 1994 Abdomen abdominal exam Overall: no tenderness 11/15/2015 None Full Exam - General 1994 Abdomen abdominal exam Overall: normal bowel sounds 11/15/2015 None Full Exam - General 1994 Lymphatic neck nodes Overall: anterior cervical chain benign 11/15/2015 None Full Exam - General 1994 Lymphatic neck nodes Overall: posterior cervical chain benign 11/15/2015 None Full Exam - General 1994 Musculoskeletal spine, ribs and pelvis Overall: good posture 11/15/2015 None Full Exam - General 1994 Musculoskeletal gait and station Overall: normal gait 11/15/2015 None Full Exam - General 1994 Musculoskeletal gait and station Overall: normal station 11/15/2015 None Full Exam - General 1994 Musculoskeletal head and neck Overall: head atraumatic 11/15/2015 None Full Exam - General 1994 Musculoskeletal head and neck Overall: cervical spine benign 11/15/2015 None Full Exam - General 1994 Neurologic cranial nerves Overall: crainial nerves 2 - 12 grossly intact 11/15/2015 None Full Exam - General 1994 Psychiatric orientation/consciousness Overall: oriented to person, place and time 11/15/2015 None Full Exam - General 1994 Psychiatric mood and affect Overall: normal mood and affect 11/15/2015 None Full Exam - General 1994 Psychiatric appearance Overall: well-groomed, good eye contact 11/15/2015 None Full Exam - General 1994 Psychiatric speech Overall: normal quality, no aphasia 11/15/2015 None Full Exam - General 1994 Psychiatric speech Overall: normal quality, quantity, rate 11/15/2015 None Full Exam - General 1994 Ears/Nose/Throat otoscopic exam External auditory canal: partial cerumen occlusion 11/15/2015 None Full Exam - General 1994 Ears/Nose/Throat otoscopic exam Overall: tympanic membranes clear 11/15/2015 None Full Exam - General 1994 Constitutional general appearance Overall: well developed 06/28/2015 None Full Exam - General 1994 Constitutional general appearance Overall: in no acute distress 06/28/2015 None Full Exam - General 1994 Constitutional general appearance Overall: well nourished 06/28/2015 None Full Exam - General 1994 Eyes conjunctiva/eyelids Overall: conjunctiva clear 06/28/2015 None Full Exam - General 1994 Eyes conjunctiva/eyelids Overall: cornea clear 06/28/2015 None Full Exam - General 1994 Eyes conjunctiva/eyelids Overall: eyelids normal 06/28/2015 None Full Exam - General 1994 Eyes pupils and irises Overall: pupils equal, round, reactive to light and accomodation 06/28/2015 None Full Exam - General 1994 Ears/Nose/Throat oral cavity/pharynx/larynx Overall: oral mucosa clear 06/28/2015 None Full Exam - General 1994 Ears/Nose/Throat oral cavity/pharynx/larynx Overall: oropharyngeal mucosa clear 06/28/2015 None Full Exam - General 1994 Ears/Nose/Throat oral cavity/pharynx/larynx Overall: no masses 06/28/2015 None Full Exam - General 1994 Respiratory auscultation Overall: breath sounds clear bilaterally 06/28/2015 None Full Exam - General 1994 Respiratory respiratory effort/rhythm Overall: no retractions 06/28/2015 None Full Exam - General 1994 Respiratory respiratory effort/rhythm Overall: normal rate 06/28/2015 None Full Exam - General 1994 Cardiovascular extremities Overall: no clubbing 06/28/2015 None Full Exam - General 1994 Cardiovascular auscultation of heart Overall: regular rate 06/28/2015 None Full Exam - General 1994 Cardiovascular auscultation of heart Overall: normal heart sounds 06/28/2015 None Full Exam - General 1994 Cardiovascular auscultation of heart Overall: no murmurs 06/28/2015 None Full Exam - General 1994 Abdomen abdominal exam Overall: no tenderness 06/28/2015 None Full Exam - General 1994 Abdomen abdominal exam Overall: normal bowel sounds 06/28/2015 None Full Exam - General 1994 Lymphatic neck nodes Overall: anterior cervical chain benign 06/28/2015 None Full Exam - General 1994 Lymphatic neck nodes Overall: posterior cervical chain benign 06/28/2015 None Full Exam - General 1994 Musculoskeletal spine, ribs and pelvis Overall: spine benign 06/28/2015 None Full Exam - General 1994 Musculoskeletal gait and station Overall: normal gait 06/28/2015 None Full Exam - General 1994 Musculoskeletal gait and station Overall: normal station 06/28/2015 None Full Exam - General 1994 Musculoskeletal head and neck Overall: head atraumatic 06/28/2015 None Full Exam - General 1994 Musculoskeletal head and neck Overall: cervical spine benign 06/28/2015 None Full Exam - General 1994 Neurologic deep tendon reflexes Overall: deep tendon reflexes intact 06/28/2015 None Full Exam - General 1994 Neurologic cranial nerves Overall: crainial nerves 2 - 12 grossly intact 06/28/2015 None Full Exam - General 1994 Psychiatric orientation/consciousness Overall: oriented to person, place and time 06/28/2015 None Full Exam - General 1994 Ears/Nose/Throat otoscopic exam External auditory canal: complete cerumen impaction 06/28/2015 None Full Exam - General 1994 Ears/Nose/Throat otoscopic exam Tympanic membrane: not visualized 06/28/2015 None Full Exam - Orthopedics Constitutional general appearance Overall: well nourished 05/23/2014 None Full Exam - Orthopedics Constitutional general appearance Overall: well developed 05/23/2014 None Full Exam - Orthopedics Constitutional general appearance Overall: in no acute distress 05/23/2014 None Full Exam - Orthopedics Constitutional general appearance Overall: normal body habitus 05/23/2014 None Full Exam - Orthopedics Psychiatric orientation/consciousness Overall: oriented to person, place and time 05/23/2014 None Full Exam - Orthopedics MS: right lower extremity insp & palp - RLE Ankle: swelling 05/23/2014 None Full Exam - Orthopedics MS: right lower extremity insp & palp - RLE Ankle: pain on palpation 05/23/2014 None Full Exam - Orthopedics MS: right lower extremity insp & palp - RLE Ankle: joint swelling 05/23/2014 None Full Exam - Orthopedics MS: right lower extremity insp & palp - RLE Ankle: tender 05/23/2014 None Full Exam - Orthopedics MS: right lower extremity range of motion - RLE Ankle: pain with flexion 05/23/2014 None Full Exam - Orthopedics MS: right lower extremity range of motion - RLE Ankle: pain with extension 05/23/2014 None Full Exam - Orthopedics MS: right lower extremity stability - RLE Ankle: stable ankle 05/23/2014 None Full Exam - Orthopedics Integument insp & palp - right lower extremity Ankle inspection: contusion 05/23/2014 None Full Exam - Orthopedics Integument insp & palp - right lower extremity Ankle palpation: tender 05/23/2014 None Full Exam - Genitourinary/Female Constitutional general appearance Overall: well nourished 04/24/2014 None Full Exam - Genitourinary/Female Constitutional general appearance Overall: well developed 04/24/2014 None Full Exam - Genitourinary/Female Constitutional general appearance Overall: in no acute distress 04/24/2014 None Full Exam - Genitourinary/Female Eyes conjunctiva/eyelids Overall: conjunctiva clear 04/24/2014 None Full Exam - Genitourinary/Female Eyes pupils and irises Overall: pupils equal, round, reactive to light and accomodation 04/24/2014 None Full Exam - Genitourinary/Female Ears/Nose/Throat otoscopic exam Overall: external auditory canals clear 04/24/2014 None Full Exam - Genitourinary/Female Ears/Nose/Throat otoscopic exam Overall: tympanic membranes clear 04/24/2014 None Full Exam - Genitourinary/Female Ears/Nose/Throat oral cavity/pharynx/larynx Overall: oral mucosa clear 04/24/2014 None Full Exam - Genitourinary/Female Respiratory auscultation Overall: breath sounds clear bilaterally 04/24/2014 None Full Exam - Genitourinary/Female Respiratory respiratory effort/rhythm Overall: no retractions 04/24/2014 None Full Exam - Genitourinary/Female Respiratory respiratory effort/rhythm Overall: normal rate 04/24/2014 None Full Exam - Genitourinary/Female Cardiovascular auscultation of heart Overall: regular rate 04/24/2014 None Full Exam - Genitourinary/Female Cardiovascular auscultation of heart Overall: normal heart sounds 04/24/2014 None Full Exam - Genitourinary/Female Cardiovascular examination of vasculature Overall: no clubbing, cyanosis, edema 04/24/2014 None Full Exam - Genitourinary/Female Abdomen abdominal exam Overall: non tender, non distended 04/24/2014 None Full Exam - Genitourinary/Female Abdomen abdominal exam Overall: normal bowel sounds 04/24/2014 None Full Exam - Genitourinary/Female Abdomen abdominal exam Overall: no mass lesions 04/24/2014 None Full Exam - Genitourinary/Female Genitourinary breast inspection & palpation Overall: breasts non-tender, no mass lesions 04/24/2014 None Full Exam - Genitourinary/Female Genitourinary breast inspection & palpation Overall: no nipple discharge 04/24/2014 None Full Exam - Genitourinary/Female Genitourinary external genitalia Overall: no lesions 04/24/2014 None Full Exam - Genitourinary/Female Genitourinary urethral meatus Overall: normal size and location 04/24/2014 None Full Exam - Genitourinary/Female Genitourinary bladder Palpation: non-tender 04/24/2014 None Full Exam - Genitourinary/Female Genitourinary bladder Palpation: no masses 04/24/2014 None Full Exam - Genitourinary/Female Genitourinary vagina Overall: no lesions 04/24/2014 None Full Exam - Genitourinary/Female Genitourinary vagina Overall: normal tone 04/24/2014 None Full Exam - Genitourinary/Female Genitourinary vagina Overall: normal pelvic support 04/24/2014 None Full Exam - Genitourinary/Female Genitourinary vagina Introitus: normal appearance 04/24/2014 None Full Exam - Genitourinary/Female Genitourinary vagina Vagina: no lesions present 04/24/2014 None Full Exam - Genitourinary/Female Genitourinary vagina Vaginal tone: a normal exam 04/24/2014 None Full Exam - Genitourinary/Female Genitourinary cervix Inspection: parous os 04/24/2014 None Full Exam - Genitourinary/Female Genitourinary uterus Overall: normal size 04/24/2014 None Full Exam - Genitourinary/Female Genitourinary uterus Overall: non tender 04/24/2014 None Full Exam - Genitourinary/Female Genitourinary adnexa/parametria Overall: no tenderness 04/24/2014 None Full Exam - Genitourinary/Female Genitourinary adnexa/parametria Overall: no enlargement 04/24/2014 None Full Exam - Genitourinary/Female Genitourinary anus and perineum Overall: good sphincter tone, no masses, no lesions 04/24/2014 None Full Exam - Genitourinary/Female Lymphatic inspection and palpation of nodes Overall: anterior cervical chain benign 04/24/2014 None Full Exam - Genitourinary/Female Lymphatic inspection and palpation of nodes Overall: posterior cervical chain benign 04/24/2014 None Full Exam - Genitourinary/Female Musculoskeletal head and neck Overall: head atraumatic 04/24/2014 None Full Exam - Genitourinary/Female Musculoskeletal gait and station Overall: normal gait 04/24/2014 None Full Exam - Genitourinary/Female Musculoskeletal gait and station Overall: normal station 04/24/2014 None Full Exam - Genitourinary/Female Integument inspection and palpation of skin Overall: no induration, no tenderness 04/24/2014 pt has multiple tattoos on various body parts on the left foot, left upper arm, upper back, etc Full Exam - Genitourinary/Female Integument inspection and palpation of skin Location: chest 04/24/2014 None Full Exam - Genitourinary/Female Integument inspection and palpation of skin Rash/Lesions: nodule 04/24/2014 on the lateral right breast at the 9 oclock region hard slightly reddened nodule Full Exam - Genitourinary/Female Neurologic mood and affect Overall: normal mood 04/24/2014 None Full Exam - Genitourinary/Female Neurologic mood and affect Overall: normal affect 04/24/2014 None Full Exam - Genitourinary/Female Neurologic orientation Overall: oriented to person, place and time 04/24/2014 None Full Exam - Genitourinary/Female Psychiatric orientation/consciousness Overall: oriented to person, place and time 04/24/2014 None Full Exam - Genitourinary/Female Genitourinary breast inspection & palpation Overall: breasts symmetric and without lesions 04/24/2014 pendulous breasts Full Exam - Genitourinary/Female Genitourinary vagina Vaginal discharge: scant 04/24/2014 None Full Exam - Genitourinary/Female Constitutional general appearance Overall: well nourished 02/14/2013 None Full Exam - Genitourinary/Female Constitutional general appearance Overall: well developed 02/14/2013 None Full Exam - Genitourinary/Female Constitutional general appearance Overall: in no acute distress 02/14/2013 None Full Exam - Genitourinary/Female Eyes conjunctiva/eyelids Overall: conjunctiva clear 02/14/2013 None Full Exam - Genitourinary/Female Eyes pupils and irises Overall: pupils equal, round, reactive to light and accomodation 02/14/2013 None Full Exam - Genitourinary/Female Ears/Nose/Throat otoscopic exam Overall: external auditory canals clear 02/14/2013 None Full Exam - Genitourinary/Female Ears/Nose/Throat otoscopic exam Overall: tympanic membranes clear 02/14/2013 None Full Exam - Genitourinary/Female Ears/Nose/Throat oral cavity/pharynx/larynx Overall: oral mucosa clear 02/14/2013 None Full Exam - Genitourinary/Female Respiratory auscultation Overall: breath sounds clear bilaterally 02/14/2013 None Full Exam - Genitourinary/Female Respiratory respiratory effort/rhythm Overall: no retractions 02/14/2013 None Full Exam - Genitourinary/Female Respiratory respiratory effort/rhythm Overall: normal rate 02/14/2013 None Full Exam - Genitourinary/Female Cardiovascular auscultation of heart Overall: regular rate 02/14/2013 None Full Exam - Genitourinary/Female Cardiovascular auscultation of heart Overall: normal heart sounds 02/14/2013 None Full Exam - Genitourinary/Female Cardiovascular examination of vasculature Overall: no clubbing, cyanosis, edema 02/14/2013 None Full Exam - Genitourinary/Female Abdomen abdominal exam Overall: non tender, non distended 02/14/2013 None Full Exam - Genitourinary/Female Abdomen abdominal exam Overall: normal bowel sounds 02/14/2013 None Full Exam - Genitourinary/Female Abdomen abdominal exam Overall: no mass lesions 02/14/2013 None Full Exam - Genitourinary/Female Genitourinary breast inspection & palpation Overall: breasts symmetric and without lesions 02/14/2013 None Full Exam - Genitourinary/Female Genitourinary breast inspection & palpation Overall: breasts non-tender, no mass lesions 02/14/2013 None Full Exam - Genitourinary/Female Genitourinary breast inspection & palpation Overall: no nipple discharge 02/14/2013 None Full Exam - Genitourinary/Female Genitourinary external genitalia Overall: no lesions 02/14/2013 None Full Exam - Genitourinary/Female Genitourinary urethral meatus Overall: normal size and location 02/14/2013 None Full Exam - Genitourinary/Female Genitourinary bladder Palpation: non-tender 02/14/2013 None Full Exam - Genitourinary/Female Genitourinary bladder Palpation: no masses 02/14/2013 None Full Exam - Genitourinary/Female Genitourinary vagina Overall: no lesions 02/14/2013 None Full Exam - Genitourinary/Female Genitourinary vagina Overall: normal tone 02/14/2013 None Full Exam - Genitourinary/Female Genitourinary vagina Overall: normal pelvic support 02/14/2013 None Full Exam - Genitourinary/Female Genitourinary vagina Introitus: normal appearance 02/14/2013 None Full Exam - Genitourinary/Female Genitourinary vagina Vaginal discharge: absent 02/14/2013 None Full Exam - Genitourinary/Female Genitourinary vagina Vaginal discharge: white 02/14/2013 None Full Exam - Genitourinary/Female Genitourinary vagina Vagina: no lesions present 02/14/2013 None Full Exam - Genitourinary/Female Genitourinary vagina Vaginal tone: a normal exam 02/14/2013 None Full Exam - Genitourinary/Female Genitourinary cervix Inspection: parous os 02/14/2013 None Full Exam - Genitourinary/Female Genitourinary cervix Cervical discharge: white 02/14/2013 None Full Exam - Genitourinary/Female Genitourinary uterus Overall: normal size 02/14/2013 None Full Exam - Genitourinary/Female Genitourinary uterus Overall: non tender 02/14/2013 None Full Exam - Genitourinary/Female Genitourinary adnexa/parametria Overall: no tenderness 02/14/2013 None Full Exam - Genitourinary/Female Genitourinary adnexa/parametria Overall: no enlargement 02/14/2013 None Full Exam - Genitourinary/Female Genitourinary anus and perineum Overall: good sphincter tone, no masses, no lesions 02/14/2013 None Full Exam - Genitourinary/Female Lymphatic inspection and palpation of nodes Overall: anterior cervical chain benign 02/14/2013 None Full Exam - Genitourinary/Female Lymphatic inspection and palpation of nodes Overall: posterior cervical chain benign 02/14/2013 None Full Exam - Genitourinary/Female Musculoskeletal head and neck Overall: head atraumatic 02/14/2013 None Full Exam - Genitourinary/Female Musculoskeletal gait and station Overall: normal gait 02/14/2013 None Full Exam - Genitourinary/Female Musculoskeletal gait and station Overall: normal station 02/14/2013 None Full Exam - Genitourinary/Female Integument inspection and palpation of skin Overall: no induration, no tenderness 02/14/2013 pt has multiple tattoos on various body parts on the left foot, left upper arm, upper back, etc Full Exam - Genitourinary/Female Integument inspection and palpation of skin Location: chest 02/14/2013 None Full Exam - Genitourinary/Female Integument inspection and palpation of skin Rash/Lesions: nodule 02/14/2013 on the lateral right breast at the 9 oclock region hard slightly reddened nodule Full Exam - Genitourinary/Female Neurologic mood and affect Overall: normal mood 02/14/2013 None Full Exam - Genitourinary/Female Neurologic mood and affect Overall: normal affect 02/14/2013 None Full Exam - Genitourinary/Female Neurologic orientation Overall: oriented to person, place and time 02/14/2013 None Full Exam - Genitourinary/Female Psychiatric orientation/consciousness Overall: oriented to person, place and time 02/14/2013 None Full Exam - General 1994 Constitutional general appearance Overall: well nourished 02/16/2012 None Full Exam - General 1994 Constitutional general appearance Overall: well developed 02/16/2012 None Full Exam - General 1994 Constitutional general appearance Overall: in no acute distress 02/16/2012 None Full Exam - General 1994 Eyes conjunctiva/eyelids Overall: conjunctiva clear 02/16/2012 None Full Exam - General 1994 Eyes conjunctiva/eyelids Overall: eyelids normal 02/16/2012 None Full Exam - General 1994 Eyes conjunctiva/eyelids Overall: cornea clear 02/16/2012 None Full Exam - General 1994 Eyes pupils and irises Overall: pupils equal, round, reactive to light and accomodation 02/16/2012 None Full Exam - General 1994 Ears/Nose/Throat otoscopic exam Overall: tympanic membranes clear 02/16/2012 None Full Exam - General 1994 Ears/Nose/Throat otoscopic exam Overall: external auditory canals clear 02/16/2012 None Full Exam - General 1994 Ears/Nose/Throat oral cavity/pharynx/larynx Overall: oropharyngeal mucosa clear 02/16/2012 None Full Exam - General 1995 Ears/Nose/Throat oral cavity/pharynx/larynx Overall: no masses 02/16/2012 None Full Exam - General 1995 Ears/Nose/Throat oral cavity/pharynx/larynx Overall: oral mucosa clear 02/16/2012 None Full Exam - General 1994 Respiratory respiratory effort/rhythm Overall: normal rate 02/16/2012 None Full Exam - General 1994 Respiratory respiratory effort/rhythm Overall: no retractions 02/16/2012 None Full Exam - General 1994 Respiratory auscultation Overall: breath sounds clear bilaterally 02/16/2012 None Full Exam - General 1994 Psychiatric orientation/consciousness Overall: oriented to person, place and time 02/16/2012 None Full Exam - General 1994 Neurologic cranial nerves Overall: crainial nerves 2 - 12 grossly intact 02/16/2012 None Full Exam - General 1994 Neurologic deep tendon reflexes Overall: deep tendon reflexes intact 02/16/2012 None Full Exam - General 1994 Musculoskeletal gait and station Overall: normal station 02/16/2012 None Full Exam - General 1994 Musculoskeletal gait and station Overall: normal gait 02/16/2012 None Full Exam - General 1994 Musculoskeletal head and neck Overall: cervical spine benign 02/16/2012 None Full Exam - General 1994 Musculoskeletal head and neck Overall: head atraumatic 02/16/2012 None Full Exam - General 1994 Musculoskeletal spine, ribs and pelvis Overall: spine benign 02/16/2012 None Full Exam - General 1994 Lymphatic neck nodes Overall: anterior cervical chain benign 02/16/2012 None Full Exam - General 1994 Lymphatic neck nodes Overall: posterior cervical chain benign 02/16/2012 None Full Exam - General 1994 Abdomen abdominal exam Overall: no tenderness 02/16/2012 None Full Exam - General 1994 Abdomen abdominal exam Overall: normal bowel sounds 02/16/2012 None Full Exam - General 1994 Cardiovascular extremities Overall: no clubbing 02/16/2012 None Full Exam - General 1994 Cardiovascular auscultation of heart Overall: regular rate 02/16/2012 None Full Exam - General 1994 Cardiovascular auscultation of heart Overall: normal heart sounds 02/16/2012 None Full Exam - General 1994 Cardiovascular auscultation of heart Overall: no murmurs 02/16/2012 None Full Exam - Genitourinary/Female Respiratory auscultation Overall: breath sounds clear bilaterally 01/05/2012 None Full Exam - Genitourinary/Female Respiratory respiratory effort/rhythm Overall: no retractions 01/05/2012 None Full Exam - Genitourinary/Female Respiratory respiratory effort/rhythm Overall: normal rate 01/05/2012 None Full Exam - Genitourinary/Female Cardiovascular auscultation of heart Overall: regular rate 01/05/2012 None Full Exam - Genitourinary/Female Cardiovascular auscultation of heart Overall: normal heart sounds 01/05/2012 None Full Exam - Genitourinary/Female Cardiovascular examination of vasculature Overall: no clubbing, cyanosis, edema 01/05/2012 None Full Exam - Genitourinary/Female Abdomen abdominal exam Overall: non tender, non distended 01/05/2012 None Full Exam - Genitourinary/Female Abdomen abdominal exam Overall: normal bowel sounds 01/05/2012 None Full Exam - Genitourinary/Female Abdomen abdominal exam Overall: no mass lesions 01/05/2012 None Full Exam - Genitourinary/Female Genitourinary breast inspection & palpation Overall: breasts symmetric and without lesions 01/05/2012 None Full Exam - Genitourinary/Female Genitourinary breast inspection & palpation Overall: breasts non-tender, no mass lesions 01/05/2012 None Full Exam - Genitourinary/Female Genitourinary breast inspection & palpation Overall: no nipple discharge 01/05/2012 None Full Exam - Genitourinary/Female Genitourinary external genitalia Overall: no lesions 01/05/2012 None Full Exam - Genitourinary/Female Genitourinary urethral meatus Overall: normal size and location 01/05/2012 None Full Exam - Genitourinary/Female Constitutional general appearance Overall: well nourished 01/05/2012 None Full Exam - Genitourinary/Female Constitutional general appearance Overall: well developed 01/05/2012 None Full Exam - Genitourinary/Female Constitutional general appearance Overall: in no acute distress 01/05/2012 None Full Exam - Genitourinary/Female Eyes conjunctiva/eyelids Overall: conjunctiva clear 01/05/2012 None Full Exam - Genitourinary/Female Eyes pupils and irises Overall: pupils equal, round, reactive to light and accomodation 01/05/2012 None Full Exam - Genitourinary/Female Ears/Nose/Throat otoscopic exam Overall: external auditory canals clear 01/05/2012 None Full Exam - Genitourinary/Female Ears/Nose/Throat otoscopic exam Overall: tympanic membranes clear 01/05/2012 None Full Exam - Genitourinary/Female Ears/Nose/Throat oral cavity/pharynx/larynx Overall: oral mucosa clear 01/05/2012 None Full Exam - Genitourinary/Female Genitourinary bladder Palpation: non-tender 01/05/2012 None Full Exam - Genitourinary/Female Genitourinary bladder Palpation: no masses 01/05/2012 None Full Exam - Genitourinary/Female Genitourinary vagina Overall: no lesions 01/05/2012 None Full Exam - Genitourinary/Female Genitourinary vagina Overall: normal tone 01/05/2012 None Full Exam - Genitourinary/Female Genitourinary vagina Overall: normal pelvic support 01/05/2012 None Full Exam - Genitourinary/Female Genitourinary vagina Introitus: normal appearance 01/05/2012 None Full Exam - Genitourinary/Female Genitourinary vagina Vaginal discharge: absent 01/05/2012 None Full Exam - Genitourinary/Female Genitourinary vagina Vagina: no lesions present 01/05/2012 None Full Exam - Genitourinary/Female Genitourinary vagina Vaginal tone: a normal exam 01/05/2012 None Full Exam - Genitourinary/Female Genitourinary uterus Overall: non tender 01/05/2012 None Full Exam - Genitourinary/Female Lymphatic inspection and palpation of nodes Overall: anterior cervical chain benign 01/05/2012 None Full Exam - Genitourinary/Female Lymphatic inspection and palpation of nodes Overall: posterior cervical chain benign 01/05/2012 None Full Exam - Genitourinary/Female Musculoskeletal head and neck Overall: head atraumatic 01/05/2012 None Full Exam - Genitourinary/Female Musculoskeletal gait and station Overall: normal gait 01/05/2012 None Full Exam - Genitourinary/Female Musculoskeletal gait and station Overall: normal station 01/05/2012 None Full Exam - Genitourinary/Female Neurologic mood and affect Overall: normal mood 01/05/2012 None Full Exam - Genitourinary/Female Neurologic mood and affect Overall: normal affect 01/05/2012 None Full Exam - Genitourinary/Female Neurologic orientation Overall: oriented to person, place and time 01/05/2012 None Full Exam - Genitourinary/Female Psychiatric orientation/consciousness Overall: oriented to person, place and time 01/05/2012 None Full Exam - Genitourinary/Female Genitourinary vagina Vaginal discharge: white 01/05/2012 None Full Exam - Genitourinary/Female Genitourinary cervix Inspection: parous os 01/05/2012 None Full Exam - Genitourinary/Female Genitourinary cervix Cervical discharge: white 01/05/2012 None Full Exam - Genitourinary/Female Genitourinary uterus Overall: normal size 01/05/2012 None Full Exam - Genitourinary/Female Genitourinary adnexa/parametria Overall: no tenderness 01/05/2012 None Full Exam - Genitourinary/Female Genitourinary adnexa/parametria Overall: no enlargement 01/05/2012 None Full Exam - Genitourinary/Female Genitourinary anus and perineum Overall: good sphincter tone, no masses, no lesions 01/05/2012 None Full Exam - Genitourinary/Female Integument inspection and palpation of skin Location: chest 01/05/2012 None Full Exam - Genitourinary/Female Integument inspection and palpation of skin Rash/Lesions: nodule 01/05/2012 on the lateral right breast at the 9 oclock region hard slightly reddened nodule Full Exam - Genitourinary/Female Integument inspection and palpation of skin Overall: no induration, no tenderness 01/05/2012 pt has multiple tattoos on various body parts on the left foot, left upper arm, upper back, etc Full Exam - General 1994 Musculoskeletal head and neck Overall: cervical spine benign 11/13/2011 None Full Exam - General 1994 Musculoskeletal head and neck Overall: head atraumatic 11/13/2011 None Full Exam - General 1994 Abdomen abdominal exam Overall: no tenderness 11/13/2011 None Full Exam - General 1994 Abdomen abdominal exam Overall: normal bowel sounds 11/13/2011 None Full Exam - General 1994 Cardiovascular auscultation of heart Overall: regular rate 11/13/2011 None Full Exam - General 1994 Cardiovascular auscultation of heart Overall: normal heart sounds 11/13/2011 None Full Exam - General 1994 Cardiovascular auscultation of heart Systolic murmur: decrescendo 11/13/2011 None Full Exam - General 1994 Cardiovascular auscultation of heart Systolic murmur grade: III/ 11/13/2011 None Full Exam - General 1994 Cardiovascular extremities Overall: no clubbing 11/13/2011 None Full Exam - General 1994 Respiratory auscultation Overall: breath sounds clear bilaterally 11/13/2011 None Full Exam - General 1994 Respiratory respiratory effort/rhythm Overall: normal rate 11/13/2011 None Full Exam - General 1994 Respiratory respiratory effort/rhythm Overall: no retractions 11/13/2011 None Full Exam - General 1994 Ears/Nose/Throat otoscopic exam External auditory canal: complete cerumen impaction 11/13/2011 None Full Exam - General 1994 Psychiatric orientation/consciousness Overall: oriented to person, place and time 11/13/2011 None Full Exam - General 1994 Psychiatric mood and affect Overall: normal mood and affect 11/13/2011 None Full Exam - General 1994 Ears/Nose/Throat otoscopic exam Tympanic membrane: bulging 11/13/2011 AFTER THE CERUMEN IMPACTION WAS REMOVED, THE TM'S WERE VISUALIZED. Full Exam - General 1994 Ears/Nose/Throat oral cavity/pharynx/larynx Overall: oropharyngeal mucosa clear 11/13/2011 None Full Exam - General 1995 Ears/Nose/Throat oral cavity/pharynx/larynx Overall: no masses 11/13/2011 None Full Exam - General 1994 Ears/Nose/Throat oral cavity/pharynx/larynx Overall: oral mucosa clear 11/13/2011 None Full Exam - General 1994 Constitutional general appearance Overall: well nourished 11/13/2011 None Full Exam - General 1995 Constitutional general appearance Overall: well developed 11/13/2011 None Full Exam - General 1994 Constitutional general appearance Overall: in no acute distress 11/13/2011 None Full Exam - General 1994 Eyes pupils and irises Overall: pupils equal, round, reactive to light and accomodation 11/13/2011 None Full Exam - General 1994 Lymphatic neck nodes Overall: shotty lymphadenopathy 11/13/2011 None Full Exam - General 1994 Constitutional general appearance Overall: well nourished 09/29/2011 None Full Exam - General 1994 Constitutional general appearance Overall: well developed 09/29/2011 None Full Exam - General 1994 Constitutional general appearance Overall: in no acute distress 09/29/2011 None Full Exam - General 1994 Eyes pupils and irises Overall: pupils equal, round, reactive to light and accomodation 09/29/2011 None Full Exam - General 1994 Ears/Nose/Throat otoscopic exam External auditory canal: complete cerumen impaction 09/29/2011 None Full Exam - General 1994 Cardiovascular auscultation of heart Overall: no murmurs 09/29/2011 None Full Exam - General 1994 Respiratory auscultation Overall: breath sounds clear bilaterally 09/29/2011 None Full Exam - General 1994 Respiratory respiratory effort/rhythm Overall: normal rate 09/29/2011 None Full Exam - General 1994 Respiratory respiratory effort/rhythm Overall: no retractions 09/29/2011 None Full Exam - General 1994 Ears/Nose/Throat oral cavity/pharynx/larynx Overall: oropharyngeal mucosa clear 09/29/2011 None Full Exam - General 1994 Ears/Nose/Throat oral cavity/pharynx/larynx Overall: no masses 09/29/2011 None Full Exam - General 1994 Ears/Nose/Throat oral cavity/pharynx/larynx Overall: oral mucosa clear 09/29/2011 None Full Exam - General 1994 Psychiatric orientation/consciousness Overall: oriented to person, place and time 09/29/2011 None Full Exam - General 1994 Psychiatric mood and affect Mood: happy 09/29/2011 None Full Exam - General 1994 Psychiatric mood and affect Overall: normal mood and affect 09/29/2011 None Full Exam - General 1994 Neurologic gait Overall: no ataxia, no unsteadiness 09/29/2011 None Full Exam - General 1994 Musculoskeletal head and neck Overall: cervical spine benign 09/29/2011 None Full Exam - General 1994 Musculoskeletal head and neck Overall: head atraumatic 09/29/2011 None Full Exam - General 1994 Abdomen abdominal exam Overall: no tenderness 09/29/2011 None Full Exam - General 1994 Abdomen abdominal exam Overall: normal bowel sounds 09/29/2011 None Full Exam - General 1994 Cardiovascular auscultation of heart Overall: regular rate 09/29/2011 None Full Exam - General 1994 Cardiovascular auscultation of heart Overall: normal heart sounds 09/29/2011 None Procedures Procedure Codes Date CHLM PROBE (CHYLMD TRACH DNA AMP PROBE) CPT-4: 53743 04/24/2014 GC PROBE (N.GONORRHOEAE DNA AMP PROB) CPT-4: 67757 04/24/2014 ROUTINE VENIPUNCTURE CPT- 4: 80811 02/15/2013 PREV VISIT EST AGE 40-64 CPT-4: 74095 01/05/2012 ROCEPHIN, PER 250 MG CPT- 4: J0696 11/13/2011 THER/PROPH/DIAG INJ SC/IM CPT-4: 61449 11/13/2011 REMOVE IMPACTED EAR WAX UNI CPT-4: 87223 11/13/2011 Vital Signs Date Vital 10/26/2018 Blood Pressure 1: 140/76 Code: 8480-6 BMI: 31.5 Code: 75558-6 Heart Rate 1: 79 bpm Height: 5'8" SpO2: 98% Weight: 207 lbs 02/22/2018 Blood Pressure 1: 132/70 Code: 8480-6 BMI: 33.1 Code: 44273-4 Heart Rate 1: 75 bpm Height: 5'8" SpO2: 97% Weight: 218 lbs 01/21/2018 Blood Pressure 1: 122/78 Code: 8480-6 Heart Rate 1: 73 bpm Height: 5'8" SpO2: 98% Weight: 09/01/2017 Blood Pressure 1: 134/82 Code: 8480-6 Heart Rate 1: 80 bpm Height: SpO2: 98% Weight: 06/18/2017 Blood Pressure 1: 122/76 Code: 8480-6 BMI: 30.7 Code: 43712-9 Heart Rate 1: 78 bpm Height: 5'8" SpO2: 98% Weight: 202 lbs 02/19/2017 Blood Pressure 1: 132/70 Code: 8480-6 BMI: 30.1 Code: 50756-1 Heart Rate 1: 72 bpm Height: 5'8" SpO2: 98% Weight: 198 lbs 02/05/2017 Blood Pressure 1: 12484 Code: 8480-6 BMI: 29.3 Code: 89020-9 Heart Rate 1: 98 bpm Height: 5'8" SpO2: 98% Weight: 193 lbs 11/20/2016 Blood Pressure 1: 130/86 Code: 8480-6 BMI: 30.0 Code: 59932-2 Heart Rate 1: 90 bpm Height: 5'8" SpO2: 99% Weight: 197 lbs 09/26/2016 Blood Pressure 1: 12484 Code: 8480-6 Heart Rate 1: 74 bpm SpO2: 97% Weight: 203 lbs 08/25/2016 Blood Pressure 1: 12486 Code: 8480-6 BMI: 31.0 Code: 87452-1 Heart Rate 1: 90 bpm Height: 5'8" SpO2: 95% Weight: 204 lbs 12/13/2015 Blood Pressure 1: 112/80 Code: 8480-6 BMI: 31.5 Code: 82271-8 Heart Rate 1: 87 bpm Height: 5'8" SpO2: 97% Weight: 207 lbs 11/15/2015 Blood Pressure 1: 146/78 Code: 8480-6 BMI: 32.1 Code: 79269-7 Heart Rate 1: 96 bpm Height: 5'8" SpO2: 97% Weight: 211 lbs 06/28/2015 Blood Pressure 1: 132/64 Code: 8480-6 BMI: 29.5 Code: 78638-2 Heart Rate 1: 91 bpm Height: 5'8" SpO2: 98% Weight: 194 lbs 05/23/2014 Blood Pressure 1: 124/80 Code: 8480-6 BMI: 30.3 Code: 50442-6 Heart Rate 1: 68 bpm Height: 5'8" Weight: 199 lbs 04/24/2014 Blood Pressure 1: 132/72 Code: 8480-6 BMI: 30.7 Code: 39574-7 Heart Rate 1: 82 bpm Height: 5'8" SpO2: 98% Weight: 202 lbs 02/14/2013 Blood Pressure 1: 122/80 Code: 8480-6 BMI: 28.6 Code: 85881-0 Heart Rate 1: 84 bpm Height: 5'8" Respiratory Rate: 16 bpm Weight: 188 lbs 02/16/2012 Blood Pressure 1: 104/66 Code: 8480-6 BMI: 28.5 Code: 46722-6 Heart Rate 1: 76 bpm Height: 5'7" Weight: 182 lbs 01/05/2012 Blood Pressure 1: 100/64 Code: 8480-6 BMI: 28.7 Code: 70657-6 Heart Rate 1: 78 bpm Height: 5'7" Respiratory Rate: 16 bpm Weight: 183 lbs 11/13/2011 Blood Pressure 1: 116/78 Code: 8480-6 Heart Rate 1: 84 bpm Respiratory Rate: 16 bpm SpO2: 98% Temperature: 36.7 (C) / 98.1 (F) Weight: 181 lbs 09/29/2011 Blood Pressure 1: 118/82 Code: 8480-6 BMI: 36.8 Code: 99926-0 Heart Rate 1: 72 bpm Height: 4'10" Respiratory Rate: 16 bpm Weight: 176 lbs Functional Status No Functional Status data History of Present Illness Symptom Name Status Result Effective Date Notes Location oral intake 10/26/2018 None Additional Comments medication use 10/26/2018 None menstrual irregularity Quality constant 02/22/2018 None menstrual irregularity Onset and Resolution ongoing 02/22/2018 None menstrual irregularity Onset of Symptom _ weeks ago 02/22/2018 None gastroesophageal reflux Quality heartburn 01/21/2018 None gastroesophageal reflux Quality worsening 01/21/2018 None gastroesophageal reflux Onset and Resolution ongoing 01/21/2018 None gastroesophageal reflux Onset of Symptom months ago 01/21/2018 None gastroesophageal reflux Frequency of Episodes daily 01/21/2018 None gastroesophageal reflux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 instructions/medication interventions. Cerumen impaction - pt is to use sweet oil drops in bilateral ears, and make an appointment for removal of earwax. 12/13/2015 Patient Education: Patient Medication Summary Completed 12/13/2015 Visit Plan: Dizziness and intermittent chest pain - pt states that she gets light headed and dizzy intermittently. Pt states that sometimes she also has chest pain at the same time, but not always. Will order labs and heart monitor. Pt is to notify clinic if symptoms worsen, or with any other concerns. 11/15/2015 Patient Education: Patient Medication Summary Completed 11/15/2015 Visit Plan: Chronic Depression and anxiety - the pt has symptoms of chronic anxiety and depression that have been fairly well controlled since the last office visit. The pt has expected periods of exacerbation with abatement of the symptoms with change in situational exposure. No change in current medications. Refil xanax for prn use Migraines-controlled with topamax- no change in treatment 06/28/2015 Patient Education: Patient Medication Summary Completed 06/28/2015 Visit Plan: Right ankle pain-recommend xray right ankle-RX for ankle support provided for patient-take anti inflammatories as directed. Refer to Ortho for further evaluation as needed. 05/23/2014 Appointment: Sick 05/23/2014 Patient Education: Patient Medication Summary Completed 05/23/2014 Visit Plan: Well Adult Female - exam completed. Pap and gc/chlamydia and breast exam completed. Pt will be called with results of her testing. She was advised to continue with yearly annual exams. Safe sex practices discussed during office visit today. Call if any abnormal gynecologic issues during the next year, otherwise, RTC yearly or prn. Pt with significantly pendulous breasts - pt wants to look at potential breast reduction. We have asked for pt consult with Dr. Shun Harrison at [facility]. Migraine headaches - start on topamax. 04/24/2014 Appointment: Bianca Jain WPtel: [address] [place], [place] [id number] [place] Pap Only 04/24/2014 Patient Education: Patient Medication Summary Completed 04/24/2014 Care Plan: PAP Pending 04/24/2014 Appointment: Unique Nichole WPtel: [address] [place], [place] [id number] [place] Other 05/31/2013 Patient Education: Patient Medication Summary Completed 02/15/2013 Visit Plan: Well Adult Female - exam completed. Pap and gc/chlamydia and breast exam completed. Pt will be called with results of her testing. She was advised to continue with yearly annual exams. Safe sex practices discussed during office visit today. Call if any abnormal gynecologic issues during the next year, otherwise, RTC yearly or prn. 02/14/2013 Patient Education: Patient Medication Summary Completed 02/14/2013 Appointment: Bianca Jain WPtel: [address] [place], [place] [id number] [place] Pap Only 01/31/2013 Appointment: Unique Nichole WPtel: [phone] [phone] [place] Other 09/13/2012 Visit Plan: Numbness-bilateral lower mmg-qaidtzeu-xoix to check labs including chem panel to evaluate electrolytes as well as blood sugar, cbc, and b12 level. Recommend patient start on a multivitamin daily and drink plenty of fluids. Will call patient with labs results. Instructed patient to call with any concerns or worsening symptoms. Patient verbalized understanding of plan. 02/16/2012 Appointment: Unique Nichole WPtel: [phone] Other 02/16/2012 Patient Education: Patient Medication Summary Completed 02/16/2012 Visit Plan: Well Adult Female - exam completed. Pap and gc/chlamydia and breast exam completed. Pt will be called with results of her testing. She was advised to continue with yearly annual exams. Safe sex practices discussed during office visit today. Call if any abnormal gynecologic issues during the next year, otherwise, RTC yearly or prn. Vaginal discharge - RX for diflucan for pt sent to her pharmacy to take for 5 days, call if not improved. Breast skin change - recommended pt to have biopsy of the lesion as it was suspicous for a developing skin cancer. 01/05/2012 Appointment: Bianca Jain WPtel: [facility] Pap Only 01/05/2012 Patient Education: Patient Medication Summary Completed 01/05/2012 Visit Plan: Sinusitis - Pt has acute infection - pain in face, maxillary region, Pt informed to use decongestant, RX given to patient, sinus rinses also recommended. Call if symptoms do not show improvement. rocephin injection Cerumen Impaction - The impacted cerumen was removed with the use of the ear currette. The patient tolerated the procedure without incident and had improvement in hearing. The wax was removed by the practicioner due to the wax being more complicated to remove, and staff was needed to assit the removal of the wax by holding the ear, and keepig patient stabilized during the removal process. COUGH - recommended for pt to use phenergan with codeine prn for the cough. call if not improved. 11/13/2011 Appointment: [facility] [address] [facility] [place] [place] Other 11/13/2011 Patient Education: Patient Medication Summary Completed 11/13/2011 Visit Plan: Anxiety - the patient has uncontrolled anxiety and will benefit from an SSRI on a daily basis to attempt control of the symptoms of anxiety (tachycardia, overwhelming sensations, stress, insomnia, etc). I also believe that the patient will benefit from very low dose of prn benzodiazepine. Pt is aware of the risks and benefits of treament with the above medications. Cerumen Impaction - The impacted cerumen was removed with the use of the ear currette. The patient tolerated the procedure without incident and had improvement in hearing. The wax was removed by the practicioner due to the wax being more complicated to remove, and staff was needed to assit the removal of the wax by holding the ear, and keepig patient stabilized during the removal process. 09/29/2011 Appointment: Bianca Jain WPtel: [address] [facility] New Patient 09/29/2011 Patient Education: Patient Medication Summary Completed 09/29/2011 Referral: Aaron Villavicencio: Referral Appointment Requested Referral: Aaron Villavicencioterosalba: Referral Initiated Instructions Comment . Left lower leg pain - will have pt use RICE- Rest, Ice, Compression, Elevation - The pt is to use prn antiinflammatories to manage acute pain. The patient is to call the office if the pain is worsening or does not improve. . Vertigo - Pt has cerumen impaction - unable to visualize TMs, pt has intermittent vertigo and sometimes has to stop what she is doing until the symptoms pass, No significant abnormalities noted on heart monitor. Will send RX for meclazine, and potentially refer pt to cardiology/ENT if symptoms persist. Pt instructed in home exercises to help alleviate and prevent future recurrent episodes of vertigo. Pt informed that if symptoms worsen, call the office for further instructions/medication interventions. Cerumen impaction - pt is to use sweet oil drops in bilateral ears, and make an appointment for removal of earwax. . Chronic Depression and anxiety - the pt has symptoms of chronic anxiety and depression that have been fairly well controlled since the last office visit. The pt has expected periods of exacerbation with abatement of the symptoms with change in situational exposure. No change in current medications. Ppjtyrdk-choczrufni-qxmtyj ambien for prn use Obesity - chronic issue with this patient. The pt has been counseled about diet changes, calorie restriction, and need to exercise. Pt will RTC in one month for weight check. . Chronic Depression and anxiety - the pt has symptoms of chronic anxiety and depression that have been fairly well controlled since the last office visit. The pt has expected periods of exacerbation with abatement of the symptoms with change in situational exposure. No change in current medications. Rfawmmrz-oftbldbarm-vuzguc ambien for prn use Obesity - chronic issue with this patient. The pt has been counseled about diet changes, calorie restriction, and need to exercise. Pt will RTC in one month for weight check. . Right ankle pain-recommend xray right ankle-RX for ankle support provided for patient-take anti inflammatories as directed. Refer to Ortho for further evaluation as needed. . Well Adult Female - exam completed. Pap and breast exam completed. Pt will be called with results of her testing. She was advised to continue with yearly annual exams. Safe sex practices discussed during office visit today. Call if any abnormal gynecologic issues during the next year, otherwise, RTC yearly or prn. mammogram ordered . Anxiety - the patient has uncontrolled anxiety and will benefit from an SSRI on a daily basis to attempt control of the symptoms of anxiety (tachycardia, overwhelming sensations, stress, insomnia, etc). I also believe that the patient will benefit from very low dose of prn benzodiazepine. Pt is aware of the risks and benefits of treament with the above medications. Cerumen Impaction - The impacted cerumen was removed with the use of the ear currette. The patient tolerated the procedure without incident and had improvement in hearing. The wax was removed by the practicioner due to the wax being more complicated to remove, and staff was needed to assit the removal of the wax by holding the ear, and keepig patient stabilized during the removal process. . Chronic Depression and anxiety - the pt has symptoms of chronic anxiety and depression that have been fairly well controlled since the last office visit. The pt has expected periods of exacerbation with abatement of the symptoms with change in situational exposure. Will increase dose of xanax-instructed patient to monitor symptoms and call if uncontrolled. Patient verbalized understanding of plan. . Sinusitis - Pt has acute infection - pain in face, maxillary region, Pt informed to use decongestant, RX given to patient, sinus rinses also recommended. Call if symptoms do not show improvement. rocephin injection Cerumen Impaction - The impacted cerumen was removed with the use of the ear currette. The patient tolerated the procedure without incident and had improvement in hearing. The wax was removed by the practicioner due to the wax being more complicated to remove, and staff was needed to assit the removal of the wax by holding the ear, and keepig patient stabilized during the removal process. COUGH - recommended for pt to use phenergan with codeine prn for the cough. call if not improved. Dexilant -consider swallow study vs EGD if symptoms persist . Esophageal Reflux - the patient has been counseled against excessive intake of caffeine, spicy foods, peppermint, and cinnamon - all of which can exacerbate esophageal reflux. The patient is to take medications as prescribed and call the office if the symptoms are not improving. . Well Adult - pt was counseled about diet, exercise, and encouraged to follow a heart healthy diet and increase activity level. The patient was instructed to RTC yearly for well adult exams and PRN for acute illnesses. The pt was also instructed to have yearly labs for check of cholesterol, thyroid, chem panel, CBC, and renal functioning. . Well Adult Female - exam completed. Pap and gc/chlamydia and breast exam completed. Pt will be called with results of her testing. She was advised to continue with yearly annual exams. Safe sex practices discussed during office visit today. Call if any abnormal gynecologic issues during the next year, otherwise, RTC yearly or prn. Vaginal discharge - RX for diflucan for pt sent to her pharmacy to take for 5 days, call if not improved. Breast skin change - recommended pt to have biopsy of the lesion as it was suspicous for a developing skin cancer. . Well Adult Female - exam completed. Pap and gc/chlamydia and breast exam completed. Pt will be called with results of her testing. She was advised to continue with yearly annual exams. Safe sex practices discussed during office visit today. Call if any abnormal gynecologic issues during the next year, otherwise, RTC yearly or prn. . Chronic Depression and anxiety - the pt has symptoms of chronic anxiety and depression that have been fairly well controlled since the last office visit. The pt has expected periods of exacerbation with abatement of the symptoms with change in situational exposure. No change in current medications. Refil xanax for prn use Migraines-controlled with topamax-no change in treatment . Dizziness and intermittent chest pain - pt states that she gets light headed and dizzy intermittently. Pt states that sometimes she also has chest pain at the same time, but not always. Will order labs and heart monitor. Pt is to notify clinic if symptoms worsen, or with any other concerns. [facility] shun harrison and saritha quick . Well Adult Female - exam completed. Pap and gc/chlamydia and breast exam completed. Pt will be called with results of her testing. She was advised to continue with yearly annual exams. Safe sex practices discussed during office visit today. Call if any abnormal gynecologic issues during the next year, otherwise, RTC yearly or prn. Pt with significantly pendulous breasts - pt wants to look at potential breast reduction. We have asked for pt consult with Dr. Shun Harrison at [facility]. Migraine headaches - start on topamax. Check labs-cbc, cmp, b12 level. . Numbness-bilateral lower mqc-notpgqgx-ppml to check labs including chem panel to evaluate electrolytes as well as blood sugar, cbc, and b12 level. Recommend patient start on a multivitamin daily and drink plenty of fluids. Will call patient with labs results. Instructed patient to call with any concerns or worsening symptoms. Patient verbalized understanding of plan. . Excessive menstrual bleeding and irregular menstruation - pt would like to be referred to OB and would like to know about a possible hysterectomy - will refer - pt is to notify clinic if symptoms do not improve, if they worsen, or with any changes, questions, or concerns. . Mild intermittent swelling above clavicles - The pt is to use prn antiinflammatories to manage acute pain. The patient is to call the office if the pain is worsening or does not improve. . Obesity - chronic issue with this patient. The pt has been counseled about diet changes, calorie restriction, and need to exercise. Pt will RTC in one month for weight check. Anxiety - refill anxiolytic
--- OUTSIDE RECORDS SUMMARY | 2019-03-03 06:28 | XMS REPORT | CCD ---
Author Author [facility]ca [facility] Organization [facility] Address [address] [place] [address] Phone Care Team Providers Care [employer] C[employer] Name Role Phone Bianca Jain PP Unavailable CCM Unavailable Summary Purpose Interface Exchange Insurance Providers Payer name Policy type / Coverage type Covered green party ID Effective Begin Date Effective End Date [employer] [facility] [employer] [id number] Unknown Family history Brother Diagnosis Age At [...] Effective Dates Employment Unknown Currently employed [employer] Registration 11/20/2016 Marital status Unknown 01/05/[address]: 077443413 Never smoker 09/29/[address]: 347124 Currently drinks alcohol 3 weekly 09/29/2011 Has the patient ever used illegal drugs? Unknown Has never used illegal drugs 09/29/2011 Allergies, Adverse Reactions, Alerts Allergies, Adverse Reactions, Alerts data not found Past Medical History Illness Codes Condition Status Onset Date Resolved Date Pain in left shoulder ICD- 9: 719.41 ICD-10: M25.512 Active 02/19/2017 Unknown Pain in right shoulder ICD-9: 719.41 ICD-10: M25.511 Active 02/19/2017 Unknown Encounter for gynecological examination (general) (routine) without abnormal findings ICD-9: V72.31 ICD-10: Z01.419 Active 02/05/2017 Unknown Generalized anxiety disorder ICD-9: 300.02 ICD-10: F41.1 Active 09/29/2011 Unknown Other obesity due to excess calories [...] Problems Condition Codes Effective Dates Condition Status Pain in left shoulder ICD- 9: 719.41 ICD-10: M25.512 02/19/2017 Active Pain in right shoulder ICD-9: 719.41 ICD-10: M25.511 02/19/2017 Active Encounter for gynecological examination (general) (routine) without abnormal findings ICD-9: V72.31 ICD-10: Z01.419 02/05/2017 Active Generalized anxiety disorder ICD-9: 300.02 ICD-10: F41.1 09/29/2011 Active Other obesity due to excess calories [...] Start Date Stop Date Status Fill Instructions Lexapro 10 mg tablet RxNorm: 091240 TAKE ONE TABLET BY MOUTH IN THE EVENING 04/17/2017 07/15/2017 Active Ambien 10 mg tablet RxNorm: 527679 1 Tablet(s) PO QHS as needed insomnia 04/17/2017 06/15/2017 Active Xanax 0.25 mg tablet RxNorm: 429667 Tablet(s) TAKE ONE TABLET BY MOUTH EVERY 8 HOURS NEEDED FOR ANXIETY 04/17/2017 06/15/2017 Active topiramate 25 mg tablet RxNorm: 453493 TAKE ONE TABLET BY MOUTH TWICE DAILY 03/20/2017 06/17/2017 Active Flagyl 500 mg tablet RxNorm: 277079 1 Tablet(s) PO TID do not drink alcohol when taking this medication 02/05/2017 02/09/2017 Inactive Ambien 10 mg tablet RxNorm: 787286 1 Tablet(s) PO QHS as needed insomnia 01/23/2017 04/21/2017 Active Xanax 0.25 mg tablet RxNorm: 175442 TAKE ONE TABLET BY MOUTH EVERY 8 HOURS NEEDED FOR ANXIETY 01/23/2017 04/21/2017 Active Xanax 0.25 mg tablet RxNorm: 414634 1 Tablet(s) PO TAKE ONE TABLET BY MOUTH EVERY 8 HOURS NEEDED FOR ANXIETY 11/28/2016 01/25/2017 Inactive topiramate 25 mg tablet RxNorm: 806737 1 Tablet(s) PO BID start one pill at hs, if migraines not improving, then increase to bid 11/20/2016 01/18/2017 Inactive Lexapro 10 mg tablet RxNorm: 093504 1 Tablet(s) PO QPM 11/20/2016 04/16/2017 Inactive Ambien 10 mg tablet RxNorm: 335514 1 Tablet(s) PO QHS as needed TAKE ONE TABLET BY MOUTH AT BEDTIME NEEDED FOR INSOMNIA 10/31/2016 01/27/2017 Inactive acyclovir 400 mg tablet RxNorm: 462874 1 Tablet(s) PO TID 10/01/2016 10/05/2016 Inactive acyclovir 400 mg tablet RxNorm: 769698 1 Tablet(s) PO TID 10/01/2016 09/30/2016 Inactive phentermine 37.5 mg tablet RxNorm: 478044 1 Tablet(s) PO daily 09/26/2016 02/04/2017 Inactive Xanax 0.25 mg tablet RxNorm: 483331 Tablet(s) TAKE ONE TABLET BY MOUTH EVERY 8 HOURS NEEDED FOR ANXIETY 08/25/2016 10/22/2016 Inactive Ambien 10 mg tablet RxNorm: 965420 1 Tablet(s) PO daily as needed TAKE ONE TABLET BY MOUTH AT BEDTIME NEEDED FOR INSOMNIA 08/25/2016 11/19/2016 Inactive phentermine 37.5 mg tablet RxNorm: 266737 1 Tablet(s) PO daily 08/25/2016 09/25/2016 Inactive topiramate 25 mg tablet RxNorm: 715030 TAKE ONE TABLET BY MOUTH TWICE DAILY 07/09/2016 08/24/2016 Inactive Xanax 0.25 mg tablet RxNorm: 095251 Tablet(s) TAKE ONE TABLET BY MOUTH EVERY 8 HOURS NEEDED FOR ANXIETY 04/28/2016 06/25/2016 Inactive Ambien 10 mg tablet RxNorm: 584155 1 Tablet(s) PO daily as needed TAKE ONE TABLET BY MOUTH AT BEDTIME NEEDED FOR INSOMNIA 04/28/2016 06/24/2016 Inactive topiramate 25 mg tablet RxNorm: 613059 1 Tablet(s) PO BID 02/20/2016 06/18/2016 Inactive Xanax 0.25 mg tablet RxNorm: 294105 Tablet(s) TAKE ONE TABLET BY MOUTH EVERY 8 HOURS NEEDED FOR ANXIETY 01/03/2016 03/31/2016 Inactive (Response to an electronic controlled substance refill request - RxReferenceNumber: [id number]) Ambien 10 mg tablet RxNorm: 162716 1 Tablet(s) PO daily as needed TAKE ONE TABLET BY MOUTH AT BEDTIME NEEDED FOR INSOMNIA 01/03/2016 03/31/2016 Inactive (Response to an electronic controlled substance refill request - RxReferenceNumber: [id number]) meclizine 25 mg tablet RxNorm: 918313 1 Tablet(s) PO QID 12/13/2015 01/11/2016 Inactive Xanax 0.25 mg tablet RxNorm: 596216 Tablet(s) TAKE ONE TABLET BY MOUTH EVERY 8 HOURS NEEDED FOR ANXIETY 11/23/2015 12/21/2015 Inactive (Response to an electronic controlled substance refill request - RxReferenceNumber: [id number]) topiramate 25 mg tablet RxNorm: 130556 1 Tablet(s) PO BID 11/02/2015 12/12/2015 Inactive pt needs to make an appt Ambien 10 mg tablet RxNorm: 625229 1 Tablet(s) PO daily as needed TAKE ONE TABLET BY MOUTH AT BEDTIME NEEDED FOR INSOMNIA 10/30/2015 11/19/2016 Inactive (Response to an electronic controlled substance refill request - RxReferenceNumber: [id number]) Xanax 0.25 mg tablet RxNorm: 701881 Tablet(s) TAKE ONE TABLET BY MOUTH EVERY 8 HOURS NEEDED FOR ANXIETY 09/20/2015 10/18/2015 Inactive (Response to an electronic controlled substance refill request - RxReferenceNumber: [id number]) Xanax 0.25 mg tablet RxNorm: 519497 Tablet(s) TAKE ONE TABLET BY MOUTH EVERY 8 HOURS NEEDED FOR ANXIETY 06/28/2015 08/25/2015 Inactive (Response to an electronic controlled substance refill request - RxReferenceNumber: [id number]) topiramate 25 mg tablet RxNorm: 987691 1 Tablet(s) PO BID 06/27/2015 10/24/2015 Inactive Ambien 10 mg tablet RxNorm: 179887 1 Tablet(s) PO daily as needed TAKE ONE TABLET BY MOUTH AT BEDTIME NEEDED FOR INSOMNIA 06/26/2015 09/23/2015 Inactive (Response to an electronic controlled substance refill request - RxReferenceNumber: [id number]) Xanax 0.25 mg tablet RxNorm: 606492 Tablet(s) TAKE ONE TABLET BY MOUTH EVERY 8 HOURS NEEDED FOR ANXIETY 04/04/2015 06/02/2015 Inactive (Response to an electronic controlled substance refill request - RxReferenceNumber: [id number]) Ambien 10 mg tablet RxNorm: 062055 1 Tablet(s) PO daily as needed TAKE ONE TABLET BY MOUTH AT BEDTIME NEEDED FOR INSOMNIA 02/16/2015 05/16/2015 Inactive (Response to an electronic controlled substance refill request - RxReferenceNumber: [id number]) Ambien 10 mg tablet RxNorm: 668845 TAKE ONE TABLET BY MOUTH AT BEDTIME NEEDED FOR INSOMNIA 01/11/2015 02/09/2015 Inactive (Response to an electronic controlled substance refill request - RxReferenceNumber: [id number]) Ambien 10 mg tablet RxNorm: 698256 1 Tablet(s) PO QHS as needed TAKE ONE TABLET BY MOUTH AT BEDTIME NEEDED 01/11/2015 01/11/2015 Inactive (Appended: Controlled substance eRx refill - RxReferenceNumber: [id number]) topiramate 25 mg tablet RxNorm: 647213 1 Tablet(s) PO BID 01/11/2015 05/10/2015 Inactive Xanax 0.25 mg tablet RxNorm: 686730 TAKE ONE TABLET BY MOUTH EVERY 8 HOURS NEEDED FOR ANXIETY 01/11/2015 02/09/2015 Inactive (Response to an electronic controlled substance refill request - RxReferenceNumber: [id number]) Xanax 0.25 mg tablet RxNorm: 680883 Tablet(s) TAKE ONE TABLET BY MOUTH EVERY 8 HOURS NEEDED FOR ANXIETY 01/11/2015 01/11/2015 Inactive (Response to an electronic controlled substance refill request - RxReferenceNumber: [id number]) Xanax 0.25 mg tablet RxNorm: 786025 Tablet(s) TAKE ONE TABLET BY MOUTH EVERY 8 HOURS NEEDED FOR ANXIETY 11/20/2014 12/17/2014 Inactive (Response to an electronic controlled substance refill request - RxReferenceNumber: [id number]) Xanax 0.25 mg tablet RxNorm: 328414 TAKE ONE TABLET BY MOUTH EVERY 8 HOURS NEEDED FOR ANXIETY 09/14/2014 10/13/2014 Inactive (Response to an electronic controlled substance refill request - RxReferenceNumber: [id number]) Xanax 0.25 mg tablet RxNorm: 259854 Tablet(s) PO TAKE ONE TABLET BY MOUTH EVERY 8 HOURS NEEDED FOR ANXIETY 09/12/2014 09/15/2014 Inactive (Appended: Controlled substance eRx refill - RxReferenceNumber: [id number]) Xanax 0.25 mg tablet RxNorm: 914970 TAKE ONE TABLET BY MOUTH EVERY 8 HOURS NEEDED FOR ANXIETY 07/31/2014 07/31/2014 Inactive (Response to an electronic controlled substance refill request - RxReferenceNumber: [id number]) Ambien 10 mg tablet RxNorm: 916197 TAKE ONE TABLET BY MOUTH AT BEDTIME NEEDED FOR INSOMNIA 07/31/2014 11/19/2016 Inactive (Response to an electronic controlled substance refill request - RxReferenceNumber: [id number]) Xanax 0.25 mg tablet RxNorm: 184048 TAKE ONE TABLET BY MOUTH EVERY 8 HOURS NEEDED FOR ANXIETY 07/31/2014 08/29/2014 Inactive (Response to an electronic controlled substance refill request - RxReferenceNumber: [id number]) metronidazole 500 mg tablet RxNorm: 738371 1 Tablet(s) PO TID 05/25/2014 05/31/2014 Inactive Diflucan 150 mg tablet RxNorm: 536554 1 Tablet(s) PO daily 05/25/2014 05/29/2014 Inactive topiramate 25 mg tablet RxNorm: 197861 1 Tablet(s) PO BID 04/24/2014 11/19/2014 Inactive Xanax 0.25 mg tablet RxNorm: 212475 Tablet(s) PO TAKE ONE TABLET BY MOUTH EVERY 8 HOURS NEEDED FOR ANXIETY 01/17/2014 07/31/2014 Inactive (Appended: Controlled substance eRx refill - RxReferenceNumber: [id number]) Xanax 0.25 mg tablet RxNorm: 516334 Tablet(s) PO TAKE ONE TABLET BY MOUTH EVERY 8 HOURS NEEDED FOR ANXIETY 01/16/2014 01/17/2014 Inactive (Appended: Controlled substance eRx refill - RxReferenceNumber: [id number]) Xanax 0.25 mg tablet RxNorm: 482326 Tablet(s) PO TAKE ONE TABLET BY MOUTH EVERY 8 HOURS NEEDED FOR ANXIETY 01/13/2014 09/11/2014 Inactive (Appended: Controlled substance eRx refill - RxReferenceNumber: [id number]) Xanax 0.25 mg tablet RxNorm: 477508 Tablet(s) PO TAKE ONE TABLET BY MOUTH EVERY 8 HOURS NEEDED FOR ANXIETY 11/21/2013 01/16/2014 Inactive (Appended: Controlled substance eRx refill - RxReferenceNumber: [id number]) Xanax 0.25 mg tablet RxNorm: 100206 Tablet(s) PO TAKE ONE TABLET BY MOUTH EVERY 8 HOURS NEEDED FOR ANXIETY 11/18/2013 01/15/2014 Inactive (Appended: Controlled substance eRx refill - RxReferenceNumber: [id number]) Ambien 10 mg tablet RxNorm: 600741 Tablet(s) PO TAKE ONE TABLET BY MOUTH EVERY DAY AT BEDTIME NEEDED 08/31/2013 07/31/2014 Inactive (Appended: Controlled substance eRx refill - RxReferenceNumber: [id number]) Ambien 10 mg tablet RxNorm: 319171 Tablet(s) PO TAKE ONE TABLET BY MOUTH EVERY DAY AT BEDTIME NEEDED 08/31/2013 08/30/2013 Inactive (Appended: Controlled substance eRx refill - RxReferenceNumber: [id number]) Xanax 0.25 mg tablet RxNorm: 110820 Tablet(s) PO TAKE ONE TABLET BY MOUTH EVERY 8 HOURS NEEDED FOR ANXIETY 07/21/2013 11/21/2013 Inactive (Appended: Controlled substance eRx refill - RxReferenceNumber: [id number]) Xanax 0.25 mg tablet RxNorm: 814846 Tablet(s) PO TAKE ONE TABLET BY MOUTH EVERY 8 HOURS NEEDED FOR ANXIETY 07/19/2013 07/21/2013 Inactive (Appended: Controlled substance eRx refill - RxReferenceNumber: [id number]) omeprazole 20 mg capsule,delayed release RxNorm: 318029 Capsule(s) PO TAKE ONE CAPSULE BY MOUTH EVERY DAY 05/23/2013 04/23/2014 Inactive Flagyl 500 mg tablet RxNorm: 503225 1 Tablet(s) PO BID 02/21/2013 02/20/2013 Inactive Flagyl 500 mg tablet RxNorm: 175895 1 Tablet(s) PO BID 02/21/2013 02/27/2013 Inactive fluconazole 150 mg tablet RxNorm: 274412 1 Tablet(s) PO PRN one pill as needed for yeast infection symptoms 02/14/2013 04/23/2014 Inactive Xanax 0.25 mg tablet RxNorm: 408458 Tablet(s) PO TAKE ONE TABLET BY MOUTH EVERY 8 HOURS NEEDED FOR ANXIETY 02/03/2013 11/20/2013 Inactive (Appended: Controlled substance eRx refill - RxReferenceNumber: [id number]) Ambien 10 mg tablet RxNorm: 985552 Tablet(s) PO TAKE ONE TABLET BY MOUTH AT BEDTIME NEEDED 02/03/2013 08/31/2013 Inactive (Appended: Controlled substance eRx refill - RxReferenceNumber: [id number]) Ambien 10 mg tablet RxNorm: 295954 Tablet(s) PO TAKE ONE TABLET BY MOUTH AT BEDTIME NEEDED 02/03/2013 01/10/2015 Inactive (Appended: Controlled substance eRx refill - RxReferenceNumber: [id number]) Xanax 0.25 mg tablet RxNorm: 026287 Tablet(s) PO 02/03/2013 07/20/2013 Inactive TAKE ONE TABLET BY MOUTH EVERY 8 HOURS NEEDED FOR ANXIETY (Appended: Controlled substance eRx refill - RxReferenceNumber: [id number]) Xanax 0.25 mg tablet RxNorm: 504204 Tablet(s) PO TAKE ONE TABLET BY MOUTH EVERY 8 HOURS NEEDED FOR ANXIETY 12/08/2012 02/03/2013 Inactive (Appended: Controlled substance eRx refill - RxReferenceNumber: [id number]) Ambien 10 mg tablet RxNorm: 443962 Tablet(s) PO TAKE ONE TABLET BY MOUTH AT BEDTIME NEEDED 12/08/2012 02/02/2013 Inactive (Appended: Controlled substance eRx refill - RxReferenceNumber: [id number]) Xanax 0.25 mg tablet RxNorm: 396106 Tablet(s) PO TAKE ONE TABLET BY MOUTH EVERY 8 HOURS NEEDED FOR ANXIETY 12/08/2012 12/07/2012 Inactive (Appended: Controlled substance eRx refill - RxReferenceNumber: [id number]) Ambien 10 mg tablet RxNorm: 360572 Tablet(s) PO TAKE ONE TABLET BY MOUTH AT BEDTIME NEEDED 12/08/2012 02/03/2013 Inactive (Appended: Controlled substance eRx refill - RxReferenceNumber: [id number]) Ambien 10 mg tablet RxNorm: 822589 Tablet(s) PO 08/27/2012 12/08/2012 Inactive TAKE ONE TABLET BY MOUTH AT BEDTIME NEEDED (Appended: Controlled substance eRx refill - RxReferenceNumber: [id number]) Xanax 0.25 mg tablet RxNorm: 228433 Tablet(s) PO 08/24/2012 02/02/2013 Inactive TAKE ONE TABLET BY MOUTH EVERY 8 HOURS NEEDED FOR ANXIETY (Appended: Controlled substance eRx refill - RxReferenceNumber: [id number]) Ambien 10 mg tablet RxNorm: 015822 Tablet(s) PO 08/24/2012 08/27/2012 Inactive TAKE ONE TABLET BY MOUTH AT BEDTIME NEEDED (Appended: Controlled substance eRx refill - RxReferenceNumber: [id number]) Xanax 0.25 mg tablet RxNorm: 540386 Tablet(s) PO 08/24/2012 12/08/2012 Inactive TAKE ONE TABLET BY MOUTH EVERY 8 HOURS NEEDED FOR ANXIETY (Appended: Controlled substance eRx refill - [id number]) Xanax 0.25 mg tablet RxNorm: 484731 1 Tablet(s) PO Q8 PRN 07/09/2012 08/24/2012 Inactive omeprazole 20 mg capsule,delayed release RxNorm: 704287 1 Capsule(s) PO daily 05/19/2012 12/14/2012 Inactive Ambien 10 mg tablet RxNorm: 426439 1 Tablet(s) PO QHS 05/19/2012 08/24/2012 Inactive Xanax 0.25 mg tablet RxNorm: 826491 1 Tablet(s) PO Q8 PRN 03/16/2012 06/13/2012 Inactive Diflucan 150 mg Tab RxNorm: 319294 1 Tablet(s) PO daily 01/05/2012 01/14/2012 Inactive Ambien 10 mg tablet RxNorm: 159677 1 Tablet(s) PO QHS 01/02/2012 04/30/2012 Inactive Ambien 10 mg Tab RxNorm: 355727 1 Tablet(s) PO QHS 12/24/2011 01/01/2012 Inactive Rocephin 500 mg Solution for Injection RxNorm: 956004 1 Milliliter(s) Inj 11/13/2011 11/13/2011 Inactive omeprazole 20 mg capsule,delayed release RxNorm: 378799 1 Capsule(s) PO daily 10/07/2011 05/18/2012 Inactive omeprazole 20 mg Cap, Delayed Release RxNorm: 063227 1 Capsule(s) PO daily 10/07/2011 04/03/2012 Inactive Ambien 5 mg Tab RxNorm: 990439 1 Tablet(s) PO QHS 1 tab q hs prn insomnia 10/07/2011 12/23/2011 Inactive Xanax 0.25 mg Tab RxNorm: 230131 1 Tablet(s) PO Q8 PRN 09/29/2011 03/15/2012 Inactive Medication Administered Medication Codes Instructions Start Date Status Rocephin 500 mg Solution for Injection RxNorm: 557239 1Milliliter 11/13/2011 No longer Active Immunizations Vaccine Codes Date Status Influenza CVX: 141 07/12/2016 completed Assessments Condition Codes Effective Dates Pain in left shoulder ICD-10: M25.512 ICD-9: 719.41 02/19/2017 Pain in right shoulder ICD-10: M25.511 ICD-9: 719.41 02/19/2017 Encounter for gynecological examination (general) (routine) without abnormal findings ICD-10: Z01.419 ICD-9: V72.31 02/05/2017 Generalized anxiety disorder ICD-10: F41.1 ICD-9: 300.02 11/20/2016 Other obesity due to excess calories ICD-10: [...] Visit Reason For Visit Effective Dates Notes edema 02/19/2017 well woman exam (40-65 years) [...] Item Item Code Result Date GC/CHL PRB 7124951 CHLM PROBE NEG 04/26/2014 GC/CHL PRB 2467916 GC PROBE NEG 04/26/2014 TSH 2313522 TSH 2.977 uIU/ML 02/16/2013 GC/CHL PRB 4411313 SOURCE KIMBERLYN UNKNOWN 02/15/2013 GC/CHL PRB 5696828 CHLM PROBE NEG 02/15/2013 GC/CHL PRB 4548020 GC PROBE NEG 02/15/2013 CHEM 14 4999588 AST 12 U/L 02/15/2013 CHEM 14 7399327 ALT 16 IU/L 02/15/2013 CHEM 14 5351801 BUN 13 MG/DL 02/15/2013 CHEM 14 8032214 ALBUMIN 4.6 GM/DL 02/15/2013 CHEM 14 7130504 CHLORIDE 104 MMOL/L 02/15/2013 CHEM 14 9017180 BILI TOT 0.5 MG/DL 02/15/2013 CHEM 14 1307804 ALK PHOS 55 U/L 02/15/2013 CHEM 14 3001412 SODIUM 137 MMOL/L 02/15/2013 CHEM 14 7608024 CREATININE 0.79 MG/DL 02/15/2013 CHEM 14 1752144 CALCIUM 9.3 MG/DL 02/15/2013 CHEM 14 0151607 POTASSIUM 4.0 MMOL/L 02/15/2013 CHEM 14 8248092 PROT TOT 6.9 GM/DL 02/15/2013 CHEM 14 5550026 GLUCOSE 99 MG/DL 02/15/2013 CHEM 14 1014655 BICARB 29 MMOL/L 02/15/2013 CHEM 14 7861835 ANION GAP 4 MEQ/L 02/15/2013 GFR CALC 8353180 GFR AA >60 ML/MIN 02/15/2013 GFR CALC 8022081 GFR NON-AA >60 ML/MIN 02/15/2013 LIPID GRP HDL TEST 38 MG/DL 02/15/2013 LIPID GRP TRIG 126 MG/DL 02/15/2013 LIPID GRP TEST LDL 112 MG/DL 02/15/2013 LIPID GRP CHOL 175 MG/DL 02/15/2013 LIPID GRP RCHOL/HDL 4.61 RATIO 02/15/2013 CBC 1706835 WBC 5.8 10e9/L 02/15/2013 CBC 6006187 RBC 4.51 10e12/L 02/15/2013 CBC 0741106 HGB 13.8 g/dL 02/15/2013 CBC 9434900 HCT DET 39.0 % 02/15/2013 CBC 7859758 MCV 86.5 fL 02/15/2013 CBC 1670110 MCH 30.6 pg 02/15/2013 CBC 0220552 MCHC 35.4 g/dL 02/15/2013 CBC 2713326 PLT 284 10e9/L 02/15/2013 CBC 1139146 MPV 10.3 fL 02/15/2013 CBC 5948863 BLANQUITA % 62.9 % 02/15/2013 CBC 9738905 LY % 26.8 % 02/15/2013 CBC 0905645 MON % 9.1 % 02/15/2013 CBC 9467605 EOS % 1.2 % 02/15/2013 CBC 5505342 BASO % 0.0 % 02/15/2013 CBC 6087028 RDW 14.4 % 02/15/2013 CBC 9840750 ABS BLANQUITA 3.65 10e9/L 02/15/2013 CBC 9430603 ABS LYMPH 1.55 10e9/L 02/15/2013 CBC 5520624 ABS MONO 0.53 10e9/L 02/15/2013 CBC 6137406 ABS EOS 0.07 10e9/L 02/15/2013 CBC 4063548 ABS BASO 0.00 10e9/L 02/15/2013 CBC 6743670 RDW-SD 44.0 fL 02/15/2013 Review of Systems System Result Effective Dates Constitutional No recent illness 02/19/2017 Constitutional No [...] bilaterally 11/13/2011 None Full Exam - General 1995 Respiratory respiratory effort/rhythm Overall: normal rate 11/13/2011 None Full Exam - General 1994 Respiratory respiratory effort/rhythm Overall: no retractions 11/13/2011 None Full Exam - General 1995 Ears/Nose/Throat otoscopic exam External auditory canal: complete cerumen impaction 11/13/2011 None Full Exam - General 1994 Psychiatric orientation/consciousness Overall: oriented to person, place and time 11/13/2011 None Full Exam - General 1994 Psychiatric mood and affect Overall: normal mood and affect 11/13/2011 None Full Exam - General 1995 Ears/Nose/Throat otoscopic exam Tympanic membrane: bulging 11/13/2011 AFTER THE CERUMEN IMPACTION WAS REMOVED, THE TM'S WERE VISUALIZED. Full Exam - General 1995 Ears/Nose/Throat oral cavity/pharynx/larynx Overall: oropharyngeal mucosa clear 11/13/2011 None Full Exam - General 1995 Ears/Nose/Throat oral cavity/pharynx/larynx Overall: no masses 11/13/2011 None Full Exam - General 1995 Ears/Nose/Throat oral cavity/pharynx/larynx Overall: oral mucosa clear 11/13/2011 None Full Exam - General 1994 Constitutional general appearance Overall: well nourished 11/13/2011 None Full Exam - General 1994 Constitutional general appearance Overall: well developed 11/13/2011 [...] retractions 09/29/2011 None Full Exam - General 1995 Ears/Nose/Throat oral cavity/pharynx/larynx Overall: oropharyngeal mucosa clear [...] PROBE (CHYLMD TRACH DNA AMP PROBE) CPT-4: 70243Sozptzo 04/24/2014 GC PROBE (N.GONORRHOEAE DNA AMP PROB) CPT-4: 59215Skwtfbj 04/24/2014 ROUTINE VENIPUNCTURE CPT-4: 39471Zzwtqcu 02/15/2013 PREV VISIT EST AGE 40-64 CPT-4: 75448Pxoqcmo 01/05/2012 ROCEPHIN, PER 250 MG CPT-4: M5878Aayzyxa 11/13/2011 THER/PROPH/DIAG INJ SC/IM CPT-4: 27942Jhbxtvz 11/13/2011 REMOVE IMPACTED EAR WAX UNI CPT-4: 43623Lqoasqi 11/13/2011 Vital Signs Date Vital 02/19/2017 Blood Pressure 1: 132/70 Code: 8480-6 BMI: 30.1 Code: 66761-4 Heart Rate 1: 72 bpm Height: 5'8" SpO2: 98% Weight: 198 lbs 02/05/2017 Blood Pressure 1: 124/84 Code: 8480-6 BMI: 29.3 Code: 61329-2 Heart Rate 1: 98 bpm Height: 5'8" SpO2: 98% Weight: 193 lbs 11/20/2016 Blood Pressure 1: 130/86 Code: 8480-6 BMI: 30.0 Code: 23575-0 Heart Rate 1: 90 bpm Height: 5'8" SpO2: 99% Weight: 197 lbs 09/26/2016 Blood Pressure 1: 124/84 Code: 8480-6 Heart Rate 1: 74 bpm SpO2: 97% Weight: 203 lbs 08/25/2016 Blood Pressure 1: 124/86 Code: 8480-6 BMI: 31.0 Code: 94437-3 Heart Rate 1: 90 bpm Height: 5'8" SpO2: 95% Weight: 204 lbs 12/13/2015 Blood Pressure 1: 112/80 Code: 8480-6 BMI: 31.5 Code: 46896-2 Heart Rate 1: 87 bpm Height: 5'8" SpO2: 97% Weight: 207 lbs 11/15/2015 Blood Pressure 1: 146/78 Code: 8480-6 BMI: 32.1 Code: 64351-1 Heart Rate 1: 96 bpm Height: 5'8" SpO2: 97% Weight: 211 lbs 06/28/2015 Blood Pressure 1: 132/64 Code: 8480-6 BMI: 29.5 Code: 13271-7 Heart Rate 1: 91 bpm Height: 5'8" SpO2: 98% Weight: 194 lbs 05/23/2014 Blood Pressure 1: 124/80 Code: 8480-6 BMI: 30.3 Code: 92578-1 Heart Rate 1: 68 bpm Height: 5'8" Weight: 199 lbs 04/24/2014 Blood Pressure 1: 132/72 Code: 8480-6 BMI: 30.7 Code: 05148-6 Heart Rate 1: 82 bpm Height: 5'8" SpO2: 98% Weight: 202 lbs 02/14/2013 Blood Pressure 1: 122/80 Code: 8480-6 BMI: 28.6 Code: 59795-0 Heart Rate 1: 84 bpm Height: 5'8" Respiratory Rate: 16 bpm Weight: 188 lbs 02/16/2012 Blood Pressure 1: 104/66 Code: 8480-6 BMI: 28.5 Code: 72218-0 Heart Rate 1: 76 bpm Height: 5'7" Weight: 182 lbs 01/05/2012 Blood Pressure 1: 100/64 Code: 8480-6 BMI: 28.7 Code: 48343-3 Heart Rate 1: 78 bpm Height: 5'7" Respiratory Rate: 16 bpm Weight: 183 lbs 11/13/2011 Blood Pressure 1: 116/78 Code: 8480-6 Heart Rate 1: 84 bpm Respiratory Rate: 16 bpm SpO2: 98% Temperature: 36.7 (C) / 98.1 (F) Weight: 181 lbs 09/29/2011 Blood Pressure 1: 118/82 Code: 8480-6 BMI: 36.8 Code: 76888-5 Heart Rate 1: 72 bpm Height: 4'10" Respiratory Rate: 16 bpm Weight: 176 lbs Functional Status No Functional Status data History of Present Illness Symptom Name Status Result Effective Date Notes edema Onset and Resolution gradual in onset [...] the day. well woman exam (40-65 years) Breast/[employer] Complaints breast pain 01/05/2012 pt states that [...] data Encounters Encounter Performer Location Codes Date EST. PATIENT, LEVEL IV Diagnosis: Pain in left shoulder[ICD10: M25.512] Diagnosis: Pain in right shoulder[ICD10: M25.511] [facility] CPT- 4: 62666 02/19/2017 ([id number]) PREV VISIT EST AGE 40-64 Diagnosis: Encounter for gynecological examination (general) (routine) without abnormal findings[ICD10: Z01.419] Bianca Jain MD, [facility] CPT-4: 83952 02/05/2017 ([id number]) 60024 EST. PATIENT, LEVEL III Diagnosis: Generalized anxiety disorder[ICD10: F41.1] Diagnosis: Other obesity due to excess calories[ICD10: E66.09] [facility] CPT-4: 28164 11/20/2016 ([id number]) Miscellaneous no charge Diagnosis: Other obesity due to excess calories[ICD10: E66.09] Maylin Jain MD, [facility] CPT-4: 07467 09/26/2016 ([id number]) 57459 EST. PATIENT, LEVEL IV Diagnosis: Generalized anxiety disorder[ICD10: F41.1] Diagnosis: Adjustment insomnia[ICD10: F51.02] Diagnosis: Other obesity due to excess calories[ICD10: E66.09] Unique Jain MD, [facility] CPT-4: 82849 08/25/2016 [id number] EST. PATIENT, LEVEL IV Diagnosis: Dizziness and giddiness[ICD10: R42] Maylin Jain MD, [facility] CPT- 4: 72961 12/13/2015 [id number] EST. PATIENT, LEVEL IV Diagnosis: Dizziness and giddiness[ICD10: R42] Diagnosis: Other chest pain[ICD10: R07.89] [facility] CPT-4: 59447 11/15/2015 ([id number]) 13923 EST. PATIENT, LEVEL III Diagnosis: GENERALIZED ANXIETY DISEASE[ICD9: 300.02] Diagnosis: Migraines[ICD9: 346.90] Unique Jain [facility] CPT-4: 27526 06/28/2015 ([id number]) [id number] EST. PATIENT, LEVEL III Diagnosis: Right ankle pain[ICD9: 719.47] Diagnosis: Right ankle sprain[ICD9: 845.00] [facility] CPT- 4: 30081 05/23/2014 ([id number]) PREV VISIT EST AGE 40-64 Diagnosis: ROUTINE GYNE EXAM[ICD9: V72.31] Diagnosis: Laboratory exam ordered as part of routine general medical examination[ICD9: V72.62] [facility] CPT-4: 93813 04/24/2014 ([id number]) PREV VISIT EST AGE 40-64 Diagnosis: Well woman exam with routine gynecological exam[ICD9: V72.31] Bianca Jain MD, [facility] CPT-4: 07407 02/14/2013 [id number] EST. PATIENT, LEVEL IV Diagnosis: Numbness in both legs[ICD9: 782.0] Diagnosis: Myalgia[ICD9: 729.1] [facility] CPT-4: 27474 02/16/2012 ([id number]) [id number] EST. PATIENT, LEVEL IV Diagnosis: Acute maxillary sinusitis[ICD9: 461.0] Diagnosis: Cough[ICD9: 786.2] Diagnosis: Cerumen impaction[ICD9: 380.4] Bianca Jain MD, [facility] CPT-4: 77128 11/13/2011 ([id number]) OFFICE VISIT, NEW - LEVEL 3 Diagnosis: GENERALIZED ANXIETY DISEASE[ICD9: 300.02] Diagnosis: DEPRESSIVE DISORDER NEC[ICD9: 311] Diagnosis: Impacted cerumen[ICD9: 380.4] Diagnosis: HEARING LOSS[ICD9: 389.9] Bianca Jain MD, [facility] CPT-4: 06264 09/29/2011 Plan of Care Planned Activity Notes Codes Status Date Visit Plan: Mild intermittent swelling above clavicles - The pt is to use prn antiinflammatories to manage acute pain. The patient is to call the office if the pain is worsening or does not improve. 02/19/2017 Appointment: Maylin Chowdhury WPtel: [address] [place], [place] [id number] (15 min) Moderate 02/19/2017 Patient Education: Patient [...] the next year, otherwise, RTC yearly or prn.mammogram ordered 02/05/2017 Patient Education: Patient Medication Summary Completed 02/05/2017 Patient Education: Obesity Completed 02/05/2017 Care Plan: PAP Pending 02/05/2017 Appointment: Bianca Jain WPtel: [phone] [facility] [facility] 01/22/2017 Visit Plan: Obesity - chronic issue with this patient. The pt has been counseled about diet changes, calorie restriction, and need to exercise. Pt will RTC in one month for weight check.Anxiety - refill anxiolytic 11/20/2016 Appointment: Bianca Jain WPtel: [phone] [facility] [facility] 11/20/2016 Patient Education: Patient Medication [...] in situational exposure. No change in current medications.Mswhezhu-elsfrkjgsf-ycqzfr ambien for prn use Obesity - chronic [...] in situational exposure. No change in current medications.Aoabfhyu-lfsxljwisp-xqszvz ambien for prn use Obesity - chronic issue with this patient. The pt has been counseled about diet changes, calorie restriction, and need to exercise. Pt will RTC in one month for weight check. 08/25/2016 Appointment: [phone] (15 min) Moderate 08/25/2016 Patient Education: Patient [...] worsen, call the office for further instructions/medication interventions.Cerumen impaction - pt is to use sweet [...] use Migraines-controlled with topamax-no change in treatment 06/28/2015 Patient Education: Patient [...] the next year, otherwise, RTC yearly or prn.Pt with significantly pendulous breasts - pt wants to look at potential breast reduction. We have asked for pt consult with Dr. Shun Harrison at [facility].Migraine headaches - start on topamax. 04/24/2014 Appointment: Bianca Jain WPtel: [address] [place], [place] [phone] [place] Pap Only 04/24/2014 Patient Education: Patient Medication Summary Completed 04/24/2014 Care Plan: PAP Pending 04/24/2014 Appointment: Unique Nichole WPtel: [address] [place], [place] [phone] Other 05/31/2013 Patient Education: Patient Medication Summary [...] Summary Completed 02/14/2013 Appointment: Bianca Jain WPtel: [address] [place], [place] [id number] Pap Only 01/31/2013 Appointment: Unique Nichole WPtel: [address] [place], [place] [phone] Other 09/13/2012 Visit Plan: Numbness-bilateral lower mod-rbznizew-qnho to check labs including chem panel to evaluate electrolytes as well as blood sugar, cbc, and b12 level. Recommend patient start on a multivitamin daily and drink plenty of fluids. Will call patient with labs results. Instructed patient to call with any concerns or worsening symptoms. Patient verbalized understanding of plan. 02/16/2012 Appointment: Unique Nichole WPtel: [address] [place], [place] [phone] Other 02/16/2012 Patient Education: Patient Medication Summary [...] the next year, otherwise, RTC yearly or prn.Vaginal discharge - RX for diflucan for pt sent to her pharmacy to take for 5 days, call if not improved.Breast skin change - recommended pt to have biopsy of the lesion as it was suspicous for a developing skin cancer. 01/05/2012 Appointment: Bianca Jain WPtel: [facility] Pap Only 01/05/2012 Patient Education: Patient Medication Summary Completed 01/05/2012 Visit Plan: Sinusitis - Pt has acute infection - pain in face, maxillary region, Pt informed to use decongestant, RX given to patient, sinus rinses also recommended. Call if symptoms do not show improvement.rocephin injection Cerumen Impaction - The impacted cerumen was removed with the use of the ear currette. The patient tolerated the procedure without incident and had improvement in hearing.The wax was removed by the practicioner due to the wax being more complicated to remove, and staff was needed to assit the removal of the wax by holding the ear, and keepig patient stabilized during the removal process.COUGH - recommended for pt to use phenergan with codeine prn for the cough.call if not improved. 11/13/2011 Appointment: Bianca Jain WPtel: [phone] [facility] [facility] 11/13/2011 Patient Education: Patient Medication Summary Completed [...] procedure without incident and had improvement in hearing.The wax was removed by the practicioner due to the wax being more complicated to remove, and staff was needed to assit the removal of the wax by holding the ear, and keepig patient stabilized during the removal process. 09/29/2011 Appointment: Bianca Jain WPtel: [facility] [place] New Patient 09/29/2011 Patient Education: Patient Medication Summary Completed 09/29/2011 Instructions Comment . Vertigo - Pt has cerumen impaction [...] situational exposure. No change in current medications. Xbgvdeze-lvsoyajaxm-rwpaex ambien for prn use Obesity - chronic [...] situational exposure. No change in current medications. Rklortpe-exwglbulkh-gpdnla ambien for prn use Obesity - chronic [...] patient stabilized during the removal process. . Sinusitis - Pt has acute infection [...] for the cough. call if not improved. . Well Adult Female - exam completed. [...] symptoms worsen, or with any other concerns. [facility] shun harrison and saritha quick [...] pt consult with Dr. Shun Harrison at [facility]. Migraine headaches - start on topamax. Check labs-cbc, cmp, b12 level. . Numbness-bilateral lower bhg-pfducofk-oswl to check labs including chem panel to evaluate electrolytes as well as blood sugar, cbc, and b12 level. Recommend patient start on a multivitamin daily and drink plenty of fluids. Will call patient with labs results. Instructed patient to call with any concerns or worsening symptoms. Patient verbalized understanding of plan. . Mild intermittent swelling above clavicles - [...]
[2019-03-03] MEDS ORDERED: metroNIDAZOLE 500MG/100ML IVPB 100 ML IV ONE (06:30)
[2019-03-03] MEDS ORDERED: ceFAZolin 2 GM/50 ML NS 50 ML IV ONE (06:30)
[2019-03-03] MEDS ORDERED: CATHETER FLUSH 10 ML SYR IV PRN (06:30)
--- OUTSIDE RECORDS SUMMARY | 2019-03-03 06:30 | XMS REPORT | CCD ---
Author Author [facility]ca [facility] Organization [facility] Address [address] [place] [address] Phone Care Team Providers Care Electronics System Mechanic Name Role Phone Bianca Jain PP Unavailable CCM Unavailable Summary Purpose Interface Exchange Insurance Providers Payer name Policy type / Coverage type Covered green party ID Effective Begin Date Effective End Date [facility] [employer] [id number] Unknown Family history Brother Diagnosis Age At [...] Effective Dates Employment Unknown Currently employed [employer] Registration 11/20/2016 Marital status Unknown 01/05/[address]: 129983959 Never smoker 09/29/[address]: 891612 Currently drinks alcohol 3 weekly 09/29/2011 Has [...] Fill Instructions Lexapro 10 mg tablet RxNorm: 621309 TAKE ONE TABLET BY MOUTH IN THE EVENING 04/17/2017 07/15/2017 Active topiramate 25 mg tablet RxNorm: 046164 TAKE ONE TABLET BY MOUTH TWICE DAILY 03/20/2017 06/17/2017 Active Flagyl 500 mg tablet RxNorm: 718151 1 Tablet(s) PO TID do not drink alcohol when taking this medication 02/05/2017 02/09/2017 Inactive Ambien 10 mg tablet RxNorm: 744741 1 Tablet(s) PO QHS as needed insomnia 01/23/2017 04/22/2017 Active Xanax 0.25 mg tablet RxNorm: 151379 TAKE ONE TABLET BY MOUTH EVERY 8 HOURS NEEDED FOR ANXIETY 01/23/2017 04/22/2017 Active Xanax 0.25 mg tablet RxNorm: 650393 1 Tablet(s) PO TAKE ONE TABLET BY MOUTH EVERY 8 HOURS NEEDED FOR ANXIETY 11/28/2016 01/25/2017 Inactive topiramate 25 mg tablet RxNorm: 758330 1 Tablet(s) PO BID start one pill at hs, if migraines not improving, then increase to bid 11/20/2016 01/18/2017 Inactive Lexapro 10 mg tablet RxNorm: 460213 1 Tablet(s) PO QPM 11/20/2016 04/16/2017 Inactive Ambien 10 mg tablet RxNorm: 305382 1 Tablet(s) PO QHS as needed TAKE ONE TABLET BY MOUTH AT BEDTIME NEEDED FOR INSOMNIA 10/31/2016 01/27/2017 Inactive acyclovir 400 mg tablet RxNorm: 745096 1 Tablet(s) PO TID 10/01/2016 10/05/2016 Inactive acyclovir 400 mg tablet RxNorm: 355034 1 Tablet(s) PO TID 10/01/2016 09/30/2016 Inactive phentermine 37.5 mg tablet RxNorm: 503810 1 Tablet(s) PO daily 09/26/2016 02/04/2017 Inactive Xanax 0.25 mg tablet RxNorm: 748001 Tablet(s) TAKE ONE TABLET BY MOUTH EVERY 8 HOURS NEEDED FOR ANXIETY 08/25/2016 10/22/2016 Inactive Ambien 10 mg tablet RxNorm: 097278 1 Tablet(s) PO daily as needed TAKE ONE TABLET BY MOUTH AT BEDTIME NEEDED FOR INSOMNIA 08/25/2016 11/19/2016 Inactive phentermine 37.5 mg tablet RxNorm: 245249 1 Tablet(s) PO daily 08/25/2016 09/25/2016 Inactive topiramate 25 mg tablet RxNorm: 077683 TAKE ONE TABLET BY MOUTH TWICE DAILY 07/09/2016 08/24/2016 Inactive Xanax 0.25 mg tablet RxNorm: 992061 Tablet(s) TAKE ONE TABLET BY MOUTH EVERY 8 HOURS NEEDED FOR ANXIETY 04/28/2016 06/25/2016 Inactive Ambien 10 mg tablet RxNorm: 770583 1 Tablet(s) PO daily as needed TAKE ONE TABLET BY MOUTH AT BEDTIME NEEDED FOR INSOMNIA 04/28/2016 06/24/2016 Inactive topiramate 25 mg tablet RxNorm: 975336 1 Tablet(s) PO BID 02/20/2016 06/18/2016 Inactive Xanax 0.25 mg tablet RxNorm: 394843 Tablet(s) TAKE ONE TABLET BY MOUTH EVERY 8 HOURS NEEDED FOR ANXIETY 01/03/2016 03/31/2016 Inactive (Response to an electronic controlled substance refill request - RxReferenceNumber: [id number]) Ambien 10 mg tablet RxNorm: 914087 1 Tablet(s) PO daily as needed TAKE ONE TABLET BY MOUTH AT BEDTIME NEEDED FOR INSOMNIA 01/03/2016 03/31/2016 Inactive (Response to an electronic controlled substance refill request - RxReferenceNumber: [id number]) meclizine 25 mg tablet RxNorm: 252233 1 Tablet(s) PO QID 12/13/2015 01/11/2016 Inactive Xanax 0.25 mg tablet RxNorm: 754745 Tablet(s) TAKE ONE TABLET BY MOUTH EVERY 8 HOURS NEEDED FOR ANXIETY 11/23/2015 12/21/2015 Inactive (Response to an electronic controlled substance refill request - RxReferenceNumber: [id number]) topiramate 25 mg tablet RxNorm: 163993 1 Tablet(s) PO BID 11/02/2015 12/12/2015 Inactive pt needs to make an appt Ambien 10 mg tablet RxNorm: 644430 1 Tablet(s) PO daily as needed TAKE ONE TABLET BY MOUTH AT BEDTIME NEEDED FOR INSOMNIA 10/30/2015 11/19/2016 Inactive (Response to an electronic controlled substance refill request - RxReferenceNumber: [id number]) Xanax 0.25 mg tablet RxNorm: 212746 Tablet(s) TAKE ONE TABLET BY MOUTH EVERY 8 HOURS NEEDED FOR ANXIETY 09/20/2015 10/18/2015 Inactive (Response to an electronic controlled substance refill request - RxReferenceNumber: [id number]) Xanax 0.25 mg tablet RxNorm: 537862 Tablet(s) TAKE ONE TABLET BY MOUTH EVERY 8 HOURS NEEDED FOR ANXIETY 06/28/2015 08/25/2015 Inactive (Response to an electronic controlled substance refill request - RxReferenceNumber: [id number]) topiramate 25 mg tablet RxNorm: 857501 1 Tablet(s) PO BID 06/27/2015 10/24/2015 Inactive Ambien 10 mg tablet RxNorm: 872038 1 Tablet(s) PO daily as needed TAKE ONE TABLET BY MOUTH AT BEDTIME NEEDED FOR INSOMNIA 06/26/2015 09/23/2015 Inactive (Response to an electronic controlled substance refill request - RxReferenceNumber: [id number]) Xanax 0.25 mg tablet RxNorm: 546502 Tablet(s) TAKE ONE TABLET BY MOUTH EVERY 8 HOURS NEEDED FOR ANXIETY 04/04/2015 06/02/2015 Inactive (Response to an electronic controlled substance refill request - RxReferenceNumber: [id number]) Ambien 10 mg tablet RxNorm: 616357 1 Tablet(s) PO daily as needed TAKE ONE TABLET BY MOUTH AT BEDTIME NEEDED FOR INSOMNIA 02/16/2015 05/16/2015 Inactive (Response to an electronic controlled substance refill request - RxReferenceNumber: [id number]) Ambien 10 mg tablet RxNorm: 949401 TAKE ONE TABLET BY MOUTH AT BEDTIME NEEDED FOR INSOMNIA 01/11/2015 02/09/2015 Inactive (Response to an electronic controlled substance refill request - RxReferenceNumber: [id number]) Ambien 10 mg tablet RxNorm: 461120 1 Tablet(s) PO QHS as needed TAKE ONE TABLET BY MOUTH AT BEDTIME NEEDED 01/11/2015 01/11/2015 Inactive (Appended: Controlled substance eRx refill - RxReferenceNumber: [id number]) topiramate 25 mg tablet RxNorm: 369668 1 Tablet(s) PO BID 01/11/2015 05/10/2015 Inactive Xanax 0.25 mg tablet RxNorm: 418806 TAKE ONE TABLET BY MOUTH EVERY 8 HOURS NEEDED FOR ANXIETY 01/11/2015 02/09/2015 Inactive (Response to an electronic controlled substance refill request - RxReferenceNumber: [id number]) Xanax 0.25 mg tablet RxNorm: 884951 Tablet(s) TAKE ONE TABLET BY MOUTH EVERY 8 HOURS NEEDED FOR ANXIETY 01/11/2015 01/11/2015 Inactive (Response to an electronic controlled substance refill request - RxReferenceNumber: [id number]) Xanax 0.25 mg tablet RxNorm: 502589 Tablet(s) TAKE ONE TABLET BY MOUTH EVERY 8 HOURS NEEDED FOR ANXIETY 11/20/2014 12/17/2014 Inactive (Response to an electronic controlled substance refill request - RxReferenceNumber: [id number]) Xanax 0.25 mg tablet RxNorm: 023263 TAKE ONE TABLET BY MOUTH EVERY 8 HOURS NEEDED FOR ANXIETY 09/14/2014 10/13/2014 Inactive (Response to an electronic controlled substance refill request - RxReferenceNumber: [id number]) Xanax 0.25 mg tablet RxNorm: 381645 Tablet(s) PO TAKE ONE TABLET BY MOUTH EVERY 8 HOURS NEEDED FOR ANXIETY 09/12/2014 09/15/2014 Inactive (Appended: Controlled substance eRx refill - RxReferenceNumber: [id number]) Xanax 0.25 mg tablet RxNorm: 336487 TAKE ONE TABLET BY MOUTH EVERY 8 HOURS NEEDED FOR ANXIETY 07/31/2014 07/31/2014 Inactive (Response to an electronic controlled substance refill request - RxReferenceNumber: [id number]) Ambien 10 mg tablet RxNorm: 055602 TAKE ONE TABLET BY MOUTH AT BEDTIME NEEDED FOR INSOMNIA 07/31/2014 11/19/2016 Inactive (Response to an electronic controlled substance refill request - RxReferenceNumber: [id number]) Xanax 0.25 mg tablet RxNorm: 492142 TAKE ONE TABLET BY MOUTH EVERY 8 HOURS NEEDED FOR ANXIETY 07/31/2014 08/29/2014 Inactive (Response to an electronic controlled substance refill request - RxReferenceNumber: [id number]) metronidazole 500 mg tablet RxNorm: 422573 1 Tablet(s) PO TID 05/25/2014 05/31/2014 Inactive Diflucan 150 mg tablet RxNorm: 174351 1 Tablet(s) PO daily 05/25/2014 05/29/2014 Inactive topiramate 25 mg tablet RxNorm: 742010 1 Tablet(s) PO BID 04/24/2014 11/19/2014 Inactive Xanax 0.25 mg tablet RxNorm: 773939 Tablet(s) PO TAKE ONE TABLET BY MOUTH EVERY 8 HOURS NEEDED FOR ANXIETY 01/17/2014 07/31/2014 Inactive (Appended: Controlled substance eRx refill - RxReferenceNumber: [id number]) Xanax 0.25 mg tablet RxNorm: 857636 Tablet(s) PO TAKE ONE TABLET BY MOUTH EVERY 8 HOURS NEEDED FOR ANXIETY 01/16/2014 01/17/2014 Inactive (Appended: Controlled substance eRx refill - RxReferenceNumber: [id number]) Xanax 0.25 mg tablet RxNorm: 422088 Tablet(s) PO TAKE ONE TABLET BY MOUTH EVERY 8 HOURS NEEDED FOR ANXIETY 01/13/2014 09/11/2014 Inactive (Appended: Controlled substance eRx refill - RxReferenceNumber: [id number]) Xanax 0.25 mg tablet RxNorm: 886120 Tablet(s) PO TAKE ONE TABLET BY MOUTH EVERY 8 HOURS NEEDED FOR ANXIETY 11/21/2013 01/16/2014 Inactive (Appended: Controlled substance eRx refill - RxReferenceNumber: [id number]) Xanax 0.25 mg tablet RxNorm: 994215 Tablet(s) PO TAKE ONE TABLET BY MOUTH EVERY 8 HOURS NEEDED FOR ANXIETY 11/18/2013 01/15/2014 Inactive (Appended: Controlled substance eRx refill - RxReferenceNumber: [id number]) Ambien 10 mg tablet RxNorm: 960758 Tablet(s) PO TAKE ONE TABLET BY MOUTH EVERY DAY AT BEDTIME NEEDED 08/31/2013 07/31/2014 Inactive (Appended: Controlled substance eRx refill - RxReferenceNumber: [id number]) Ambien 10 mg tablet RxNorm: 260777 Tablet(s) PO TAKE ONE TABLET BY MOUTH EVERY DAY AT BEDTIME NEEDED 08/31/2013 08/30/2013 Inactive (Appended: Controlled substance eRx refill - RxReferenceNumber: [id number]) Xanax 0.25 mg tablet RxNorm: 824099 Tablet(s) PO TAKE ONE TABLET BY MOUTH EVERY 8 HOURS NEEDED FOR ANXIETY 07/21/2013 11/21/2013 Inactive (Appended: Controlled substance eRx refill - RxReferenceNumber: [id number]) Xanax 0.25 mg tablet RxNorm: 712507 Tablet(s) PO TAKE ONE TABLET BY MOUTH EVERY 8 HOURS NEEDED FOR ANXIETY 07/19/2013 07/21/2013 Inactive (Appended: Controlled substance eRx refill - RxReferenceNumber: [id number]) omeprazole 20 mg capsule,delayed release RxNorm: 630091 Capsule(s) PO TAKE ONE CAPSULE BY MOUTH EVERY DAY 05/23/2013 04/23/2014 Inactive Flagyl 500 mg tablet RxNorm: 916785 1 Tablet(s) PO BID 02/21/2013 02/20/2013 Inactive Flagyl 500 mg tablet RxNorm: 409474 1 Tablet(s) PO BID 02/21/2013 02/27/2013 Inactive fluconazole 150 mg tablet RxNorm: 258638 1 Tablet(s) PO PRN one pill as needed for yeast infection symptoms 02/14/2013 04/23/2014 Inactive Xanax 0.25 mg tablet RxNorm: 848180 Tablet(s) PO TAKE ONE TABLET BY MOUTH EVERY 8 HOURS NEEDED FOR ANXIETY 02/03/2013 11/20/2013 Inactive (Appended: Controlled substance eRx refill - RxReferenceNumber: [id number]) Ambien 10 mg tablet RxNorm: 801228 Tablet(s) PO TAKE ONE TABLET BY MOUTH AT BEDTIME NEEDED 02/03/2013 08/31/2013 Inactive (Appended: Controlled substance eRx refill - RxReferenceNumber: [id number]) Ambien 10 mg tablet RxNorm: 114263 Tablet(s) PO TAKE ONE TABLET BY MOUTH AT BEDTIME NEEDED 02/03/2013 01/10/2015 Inactive (Appended: Controlled substance eRx refill - RxReferenceNumber: [id number]) Xanax 0.25 mg tablet RxNorm: 255672 Tablet(s) PO 02/03/2013 07/20/2013 Inactive TAKE ONE TABLET BY MOUTH EVERY 8 HOURS NEEDED FOR ANXIETY (Appended: Controlled substance eRx refill - RxReferenceNumber: [id number]) Xanax 0.25 mg tablet RxNorm: 605226 Tablet(s) PO TAKE ONE TABLET BY MOUTH EVERY 8 HOURS NEEDED FOR ANXIETY 12/08/2012 02/03/2013 Inactive (Appended: Controlled substance eRx refill - RxReferenceNumber: [id number]) Ambien 10 mg tablet RxNorm: 783161 Tablet(s) PO TAKE ONE TABLET BY MOUTH AT BEDTIME NEEDED 12/08/2012 02/02/2013 Inactive (Appended: Controlled substance eRx refill - RxReferenceNumber: [id number]) Xanax 0.25 mg tablet RxNorm: 084950 Tablet(s) PO TAKE ONE TABLET BY MOUTH EVERY 8 HOURS NEEDED FOR ANXIETY 12/08/2012 12/07/2012 Inactive (Appended: Controlled substance eRx refill - RxReferenceNumber: [id number]) Ambien 10 mg tablet RxNorm: 319630 Tablet(s) PO TAKE ONE TABLET BY MOUTH AT BEDTIME NEEDED 12/08/2012 02/03/2013 Inactive (Appended: Controlled substance eRx refill - RxReferenceNumber: [id number]) Ambien 10 mg tablet RxNorm: 961450 Tablet(s) PO 08/27/2012 12/08/2012 Inactive TAKE ONE TABLET BY MOUTH AT BEDTIME NEEDED (Appended: Controlled substance eRx refill - RxReferenceNumber: [id number]) Xanax 0.25 mg tablet RxNorm: 029568 Tablet(s) PO 08/24/2012 02/02/2013 Inactive TAKE ONE TABLET BY MOUTH EVERY 8 HOURS NEEDED FOR ANXIETY (Appended: Controlled substance eRx refill - RxReferenceNumber: [id number]) Ambien 10 mg tablet RxNorm: 894455 Tablet(s) PO 08/24/2012 08/27/2012 Inactive TAKE ONE TABLET BY MOUTH AT BEDTIME NEEDED (Appended: Controlled substance eRx refill - RxReferenceNumber: [id number]) Xanax 0.25 mg tablet RxNorm: 242868 Tablet(s) PO 08/24/2012 12/08/2012 Inactive TAKE ONE TABLET BY MOUTH EVERY 8 HOURS NEEDED FOR ANXIETY (Appended: Controlled substance eRx refill - RxReferenceNumber: [id number]) Xanax 0.25 mg tablet RxNorm: 741368 1 Tablet(s) PO Q8 PRN 07/09/2012 08/24/2012 Inactive omeprazole 20 mg capsule,delayed release RxNorm: 573372 1 Capsule(s) PO daily 05/19/2012 12/14/2012 Inactive Ambien 10 mg tablet RxNorm: 752534 1 Tablet(s) PO QHS 05/19/2012 08/24/2012 Inactive Xanax 0.25 mg tablet RxNorm: 939995 1 Tablet(s) PO Q8 PRN 03/16/2012 06/13/2012 Inactive Diflucan 150 mg Tab RxNorm: 221418 1 Tablet(s) PO daily 01/05/2012 01/14/2012 Inactive Ambien 10 mg tablet RxNorm: 223328 1 Tablet(s) PO QHS 01/02/2012 04/30/2012 Inactive Ambien 10 mg Tab RxNorm: 125255 1 Tablet(s) PO QHS 12/24/2011 01/01/2012 Inactive Rocephin 500 mg Solution for Injection RxNorm: 606732 1 Milliliter(s) Inj 11/13/2011 11/13/2011 Inactive omeprazole 20 mg capsule,delayed release RxNorm: 304292 1 Capsule(s) PO daily 10/07/2011 05/18/2012 Inactive omeprazole 20 mg Cap, Delayed Release RxNorm: 252155 1 Capsule(s) PO daily 10/07/2011 04/03/2012 Inactive Ambien 5 mg Tab RxNorm: 934343 1 Tablet(s) PO QHS 1 tab q hs prn insomnia 10/07/2011 12/23/2011 Inactive Xanax 0.25 mg Tab RxNorm: 380177 1 Tablet(s) PO Q8 PRN 09/29/2011 03/15/2012 Inactive Medication Administered Medication Codes Instructions Start Date Status Rocephin 500 mg Solution for Injection RxNorm: 370700 1Milliliter 11/13/2011 No longer Active Immunizations Vaccine Codes Date Status Influenza CVX: 141 07/12/2016 completed Assessments Condition Codes Effective Dates Pain in right shoulder ICD-10: M25.511 ICD-9: 719.41 02/19/2017 Pain in left shoulder ICD-10: M25.512 ICD-9: 719.41 02/19/2017 Encounter for gynecological examination [...] Item Item Code Result Date GC/CHL PRB 3549408 CHLM PROBE NEG 04/26/2014 GC/CHL PRB 3026860 GC PROBE NEG 04/26/2014 TSH 2408027 TSH 2.977 uIU/ML 02/16/2013 GC/CHL PRB 3092473 SOURCE KIMBERLYN UNKNOWN 02/15/2013 GC/CHL PRB 8726861 CHLM PROBE NEG 02/15/2013 GC/CHL PRB 1502495 GC PROBE NEG 02/15/2013 CHEM 14 8879966 AST 12 U/L 02/15/2013 CHEM 14 2578022 ALT 16 IU/L 02/15/2013 CHEM 14 4169988 BUN 13 MG/DL 02/15/2013 CHEM 14 3017366 ALBUMIN 4.6 GM/DL 02/15/2013 CHEM 14 7210063 CHLORIDE 104 MMOL/L 02/15/2013 CHEM 14 2761495 BILI TOT 0.5 MG/DL 02/15/2013 CHEM 14 0140346 ALK PHOS 55 U/L 02/15/2013 CHEM 14 1226960 SODIUM 137 MMOL/L 02/15/2013 CHEM 14 9559337 CREATININE 0.79 MG/DL 02/15/2013 CHEM 14 8860429 CALCIUM 9.3 MG/DL 02/15/2013 CHEM 14 6833013 POTASSIUM 4.0 MMOL/L 02/15/2013 CHEM 14 3314334 PROT TOT 6.9 GM/DL 02/15/2013 CHEM 14 7086674 GLUCOSE 99 MG/DL 02/15/2013 CHEM 14 9550262 BICARB 29 MMOL/L 02/15/2013 CHEM 14 4469413 ANION GAP 4 MEQ/L 02/15/2013 LIPID GRP HDL TEST 38 MG/DL 02/15/2013 LIPID GRP TRIG 126 MG/DL 02/15/2013 LIPID GRP TEST LDL 112 MG/DL 02/15/2013 LIPID GRP CHOL 175 MG/DL 02/15/2013 LIPID GRP RCHOL/HDL 4.61 RATIO 02/15/2013 GFR CALC 2931937 GFR AA >60 ML/MIN 02/15/2013 GFR CALC 6221723 GFR NON-AA >60 ML/MIN 02/15/2013 CBC 3014259 WBC 5.8 10e9/L 02/15/2013 CBC 5382487 RBC 4.51 10e12/L 02/15/2013 CBC 6809313 HGB 13.8 g/dL 02/15/2013 CBC 9531051 HCT DET 39.0 % 02/15/2013 CBC 1521154 MCV 86.5 fL 02/15/2013 CBC 5913579 MCH 30.6 pg 02/15/2013 CBC 6802416 MCHC 35.4 g/dL 02/15/2013 CBC 7648641 PLT 284 10e9/L 02/15/2013 CBC 8080005 MPV 10.3 fL 02/15/2013 CBC 5333107 BLANQUITA % 62.9 % 02/15/2013 CBC 3322747 LY % 26.8 % 02/15/2013 CBC 5150507 MON % 9.1 % 02/15/2013 CBC 8890424 EOS % 1.2 % 02/15/2013 CBC 9782095 BASO % 0.0 % 02/15/2013 CBC 7034866 RDW 14.4 % 02/15/2013 CBC 8316857 ABS BLANQUITA 3.65 10e9/L 02/15/2013 CBC 1505818 ABS LYMPH 1.55 10e9/L 02/15/2013 CBC 5462351 ABS MONO 0.53 10e9/L 02/15/2013 CBC 2974087 ABS EOS 0.07 10e9/L 02/15/2013 CBC 5563608 ABS BASO 0.00 10e9/L 02/15/2013 CBC 1195773 RDW-SD 44.0 fL 02/15/2013 Review of Systems [...] 1994 Ears/Nose/Throat oral cavity/pharynx/larynx Overall: no masses 02/16/2012 None Full Exam - General 1994 [...] 1994 Ears/Nose/Throat oral cavity/pharynx/larynx Overall: no masses 11/13/2011 [...] PROBE (CHYLMD TRACH DNA AMP PROBE) CPT-4: 63127Heujyse 04/24/2014 GC PROBE (N.GONORRHOEAE DNA AMP PROB) CPT-4: 43166Druwytu 04/24/2014 ROUTINE VENIPUNCTURE CPT-4: 17020Nurkrlj 02/15/2013 PREV VISIT EST AGE 40-64 CPT-4: 71067Edyeqhn 01/05/2012 ROCEPHIN, PER 250 MG CPT-4: S5314Xnejasb 11/13/2011 THER/PROPH/DIAG INJ SC/IM CPT-4: 96657Sunskpt 11/13/2011 REMOVE IMPACTED EAR WAX UNI CPT-4: 31523Binsyht 11/13/2011 Vital Signs Date Vital 02/19/2017 Blood Pressure 1: 132/70 Code: 8480-6 BMI: 30.1 Code: 22513-8 Heart Rate 1: 72 bpm Height: 5'8" SpO2: 98% Weight: 198 lbs 02/05/2017 Blood Pressure 1: 124/84 Code: 8480-6 BMI: 29.3 Code: 62841-7 Heart Rate 1: 98 bpm Height: 5'8" SpO2: 98% Weight: 193 lbs 11/20/2016 Blood Pressure 1: 130/86 Code: 8480-6 BMI: 30.0 Code: 97679-3 Heart Rate 1: 90 bpm Height: 5'8" SpO2: 99% Weight: 197 lbs 09/26/2016 Blood Pressure 1: 124 Code: 8480-6 Heart Rate 1: 74 bpm SpO2: 97% Weight: 203 lbs 08/25/2016 Blood Pressure 1: 124/86 Code: 8480-6 BMI: 31.0 Code: 51198-2 Heart Rate 1: 90 bpm Height: 5'8" SpO2: 95% Weight: 204 lbs 12/13/2015 Blood Pressure 1: 112/80 Code: 8480-6 BMI: 31.5 Code: 67489-4 Heart Rate 1: 87 bpm Height: 5'8" SpO2: 97% Weight: 207 lbs 11/15/2015 Blood Pressure 1: 146/78 Code: 8480-6 BMI: 32.1 Code: 35581-5 Heart Rate 1: 96 bpm Height: 5'8" SpO2: 97% Weight: 211 lbs 06/28/2015 Blood Pressure 1: 132/64 Code: 8480-6 BMI: 29.5 Code: 34407-7 Heart Rate 1: 91 bpm Height: 5'8" SpO2: 98% Weight: 194 lbs 05/23/2014 Blood Pressure 1: 124/80 Code: 8480-6 BMI: 30.3 Code: 67786-6 Heart Rate 1: 68 bpm Height: 5'8" Weight: 199 lbs 04/24/2014 Blood Pressure 1: 132/72 Code: 8480-6 BMI: 30.7 Code: 78194-9 Heart Rate 1: 82 bpm Height: 5'8" SpO2: 98% Weight: 202 lbs 02/14/2013 Blood Pressure 1: 122/80 Code: 8480-6 BMI: 28.6 Code: 86968-3 Heart Rate 1: 84 bpm Height: 5'8" Respiratory Rate: 16 bpm Weight: 188 lbs 02/16/2012 Blood Pressure 1: 104/66 Code: 8480-6 BMI: 28.5 Code: 40344-8 Heart Rate 1: 76 bpm Height: 5'7" Weight: 182 lbs 01/05/2012 Blood Pressure 1: 100/64 Code: 8480-6 BMI: 28.7 Code: 16247-6 Heart Rate 1: 78 bpm Height: 5'7" Respiratory Rate: 16 bpm Weight: 183 lbs 11/13/2011 Blood Pressure 1: 116/78 Code: 8480-6 Heart Rate 1: 84 bpm Respiratory Rate: 16 bpm SpO2: 98% Temperature: 36.7 (C) / 98.1 (F) Weight: 181 lbs 09/29/2011 Blood Pressure 1: 118/82 Code: 8480-6 BMI: 36.8 Code: 50113-4 Heart Rate 1: 72 bpm Height: 4'10" [...] the day. well woman exam (40-65 years) Breast/Statistics Intern Complaints breast pain 01/05/2012 pt states that [...] in right shoulder[ICD10: M25.511] [facility] CPT- 4: 23904 02/19/2017 ([id number]) PREV VISIT EST AGE 40-64 Diagnosis: Encounter for gynecological examination (general) (routine) without abnormal findings[ICD10: Z01.419] [facility] CPT-4: 04020 02/05/2017 ([id number]) 41570 EST. PATIENT, LEVEL III Diagnosis: Generalized anxiety disorder[ICD10: F41.1] Diagnosis: Other obesity due to excess calories[ICD10: E66.09] [facility] CPT-4: 57794 11/20/2016 ([id number]) Miscellaneous no charge Diagnosis: Other obesity due to excess calories[ICD10: E66.09] [facility] CPT-4: 82061 09/26/2016 ([id number]) 45680 EST. PATIENT, LEVEL IV Diagnosis: Generalized anxiety disorder[ICD10: F41.1] Diagnosis: Adjustment insomnia[ICD10: F51.02] Diagnosis: Other obesity due to excess calories[ICD10: E66.09] [facility] CPT-4: 87342 08/25/2016 60376 EST. PATIENT, LEVEL IV Diagnosis: Dizziness and giddiness[ICD10: R42] [facility] CPT- 4: 27611 12/13/2015 47404 EST. PATIENT, LEVEL IV Diagnosis: Dizziness and giddiness[ICD10: R42] Diagnosis: Other chest pain[ICD10: R07.89] [facility] CPT-4: 75539 11/15/2015 ([id number]) 72778 EST. PATIENT, LEVEL III Diagnosis: GENERALIZED ANXIETY DISEASE[ICD9: 300.02] Diagnosis: Migraines[ICD9: 346.90] [facility] CPT-4: 40603 06/28/2015 ([id number]) 27328 EST. PATIENT, LEVEL III Diagnosis: Right ankle pain[ICD9: 719.47] Diagnosis: Right ankle sprain[ICD9: 845.00] [facility] CPT- 4: 71227 05/23/2014 ([id number]) PREV VISIT EST AGE 40-64 Diagnosis: ROUTINE GYNE EXAM[ICD9: V72.31] Diagnosis: Laboratory exam ordered as part of routine general medical examination[ICD9: V72.62] [facility] CPT-4: 27647 04/24/2014 ([id number]) PREV VISIT EST AGE 40-64 Diagnosis: Well woman exam with routine gynecological exam[ICD9: V72.31] [facility] CPT-4: 52908 02/14/2013 21041 EST. PATIENT, LEVEL IV Diagnosis: Numbness in both legs[ICD9: 782.0] Diagnosis: Myalgia[ICD9: 729.1] Unique Jain MD, [facility] CPT-4: 60538 02/16/2012 ([id number]) 79179 EST. PATIENT, LEVEL IV Diagnosis: Acute maxillary sinusitis[ICD9: 461.0] Diagnosis: Cough[ICD9: 786.2] Diagnosis: Cerumen impaction[ICD9: 380.4] Bianca Jain MD, [facility] CPT-4: 25001 11/13/2011 ([id number]) OFFICE VISIT, NEW - LEVEL 3 Diagnosis: GENERALIZED ANXIETY DISEASE[ICD9: 300.02] Diagnosis: DEPRESSIVE DISORDER NEC[ICD9: 311] Diagnosis: Impacted cerumen[ICD9: 380.4] Diagnosis: HEARING LOSS[ICD9: 389.9] Bianca Jain MD, [facility] CPT-4: 73604 09/29/2011 Plan of Care Planned Activity Notes Codes Status Date Visit Plan: Mild intermittent swelling above clavicles - The pt is to use prn antiinflammatories to manage acute pain. The patient is to call the office if the pain is worsening or does not improve. 02/19/2017 Appointment: Maylin Chowdhury WPtel: [address] [place], [place] [id number] (15 min) Moderate 02/19/2017 Patient Education: Patient [...] PAP Pending 02/05/2017 Appointment: Bianca Jain WPtel: [address] [place], [place] [id number] Well Woman 01/22/2017 Visit Plan: Obesity - chronic issue with this patient. The pt has been counseled about diet changes, calorie restriction, and need to exercise. Pt will RTC in one month for weight check.Anxiety - refill anxiolytic 11/20/2016 App[facility]ment[facility] [phone] [facility] [facility] 11/20/2016 Patient Education: Patient Medication [...] in situational exposure. No change in current medications.Cyjmotab-tvrfixzust-ohzmts ambien for prn use Obesity - chronic [...] in situational exposure. No change in current medications.Cambzcmr-jpqdomgdwh-azhpab ambien for prn use Obesity - chronic issue with this patient. The pt has been counseled about diet changes, calorie restriction, and need to exercise. Pt will RTC in one month for weight check. 08/25/2016 Appointment: [facility] [address] [phone] (15 min) Moderate 08/25/2016 Patient Education: Patient [...] pt consult with Dr. Shun Harrison at [facility].Migraine headaches - start on topamax. 04/24/2014 Appointment: Bianca Jain WPtel: [address] [place], [place] [phone] [place] Pap Only 04/24/2014 Patient Education: Patient Medication Summary Completed 04/24/2014 Care Plan: PAP Pending 04/24/2014 Appointment: Unique Nichole WPtel: [address] [place], [place] [phone] Other 05/31/2013 Patient Education: Patient Medication Summary [...] Summary Completed 02/14/2013 Appointment: Bianca Jain WPtel: [facility] Pap Only 01/31/2013 Appointment: Unique Nichole WPtel: [address] [place], [place] [phone] Other 09/13/2012 Visit Plan: Numbness-bilateral lower qdr-doougpzp-islk to check labs including chem panel to evaluate electrolytes as well as blood sugar, cbc, and b12 level. Recommend patient start on a multivitamin daily and drink plenty of fluids. Will call patient with labs results. Instructed patient to call with any concerns or worsening symptoms. Patient verbalized understanding of plan. 02/16/2012 Appointment: Unique Nichole WPtel: [address] [place], [place] [id number] Other 02/16/2012 Patient Education: Patient Medication Summary [...] skin cancer. 01/05/2012 Appointment: Bianca Jain WPtel: [facility] [place] [id number] [place] Pap Only 01/05/2012 Patient Education: Patient Medication [...] not improved. 11/13/2011 Appointment: Bianca Jain WPtel: [facility] [place] [id number] [place] Other 11/13/2011 Patient Education: Patient Medication [...] removal process. 09/29/2011 Appointment: Bianca Jain WPtel: [phone] [id number] [place] New Patient 09/29/2011 Patient Education: Patient [...] situational exposure. No change in current medications. Cdlohber-icfujkxwgr-vkiinr ambien for prn use Obesity - chronic [...] situational exposure. No change in current medications. Syeqkuma-bwlcofcrcj-uzxdop ambien for prn use Obesity - chronic [...] symptoms worsen, or with any other concerns. [facility] shun harrison and saritha quick [...] pt consult with Dr. Shun Harrison at [facility]. Migraine headaches - start on topamax. Check labs-cbc, cmp, b12 level. . Numbness-bilateral lower jnu-rhdcyocc-ihuf to check labs including chem panel to [...]
--- OUTSIDE RECORDS SUMMARY | 2019-03-03 06:31 | XMS REPORT | CCD ---
Author Author [facility]ca Jain Organization [facility] Address [address] [place] [address] Phone Care Team Providers Care Gate Clerk Name Role Phone Bianca Jain PP Unavailable CCM Unavailable Summary Purpose Interface Exchange Insurance Providers Payer name Policy type / Coverage type Covered green party ID Effective Begin Date Effective End Date [facility] Obvious/ImageTag [id number] Unknown Family history Brother Diagnosis Age At [...] Effective Dates Employment Unknown Currently employed Via [employer] Registration 11/20/2016 Marital status Unknown 01/05/[address]: 609815226 Never smoker 09/29/[address]: 660770 Currently drinks alcohol 3 weekly 09/29/2011 Has [...] Start Date Stop Date Status Fill Instructions topiramate 25 mg tablet RxNorm: 276747 TAKE ONE TABLET BY MOUTH TWICE DAILY 03/20/2017 06/17/2017 Active Flagyl 500 mg tablet RxNorm: 725336 1 Tablet(s) PO TID do not drink alcohol when taking this medication 02/05/2017 02/09/2017 Inactive Ambien 10 mg tablet RxNorm: 074163 1 Tablet(s) PO QHS as needed insomnia 01/23/2017 04/22/2017 Active Xanax 0.25 mg tablet RxNorm: 386489 TAKE ONE TABLET BY MOUTH EVERY 8 HOURS NEEDED FOR ANXIETY 01/23/2017 04/22/2017 Active Xanax 0.25 mg tablet RxNorm: 311919 1 Tablet(s) PO TAKE ONE TABLET BY MOUTH EVERY 8 HOURS NEEDED FOR ANXIETY 11/28/2016 01/25/2017 Inactive Lexapro 10 mg tablet RxNorm: 516559 1 Tablet(s) PO QPM 11/20/2016 04/18/2017 Active topiramate 25 mg tablet RxNorm: 385448 1 Tablet(s) PO BID start one pill at hs, if migraines not improving, then increase to bid 11/20/2016 01/18/2017 Inactive Ambien 10 mg tablet RxNorm: 637857 1 Tablet(s) PO QHS as needed TAKE ONE TABLET BY MOUTH AT BEDTIME NEEDED FOR INSOMNIA 10/31/2016 01/27/2017 Inactive acyclovir 400 mg tablet RxNorm: 798114 1 Tablet(s) PO TID 10/01/2016 10/05/2016 Inactive acyclovir 400 mg tablet RxNorm: 651791 1 Tablet(s) PO TID 10/01/2016 09/30/2016 Inactive phentermine 37.5 mg tablet RxNorm: 533226 1 Tablet(s) PO daily 09/26/2016 02/04/2017 Inactive Xanax 0.25 mg tablet RxNorm: 169768 Tablet(s) TAKE ONE TABLET BY MOUTH EVERY 8 HOURS NEEDED FOR ANXIETY 08/25/2016 10/22/2016 Inactive Ambien 10 mg tablet RxNorm: 109115 1 Tablet(s) PO daily as needed TAKE ONE TABLET BY MOUTH AT BEDTIME NEEDED FOR INSOMNIA 08/25/2016 11/19/2016 Inactive phentermine 37.5 mg tablet RxNorm: 786315 1 Tablet(s) PO daily 08/25/2016 09/25/2016 Inactive topiramate 25 mg tablet RxNorm: 960095 TAKE ONE TABLET BY MOUTH TWICE DAILY 07/09/2016 08/24/2016 Inactive Xanax 0.25 mg tablet RxNorm: 519859 Tablet(s) TAKE ONE TABLET BY MOUTH EVERY 8 HOURS NEEDED FOR ANXIETY 04/28/2016 06/25/2016 Inactive Ambien 10 mg tablet RxNorm: 042019 1 Tablet(s) PO daily as needed TAKE ONE TABLET BY MOUTH AT BEDTIME NEEDED FOR INSOMNIA 04/28/2016 06/24/2016 Inactive topiramate 25 mg tablet RxNorm: 907824 1 Tablet(s) PO BID 02/20/2016 06/18/2016 Inactive Xanax 0.25 mg tablet RxNorm: 193324 Tablet(s) TAKE ONE TABLET BY MOUTH EVERY 8 HOURS NEEDED FOR ANXIETY 01/03/2016 03/31/2016 Inactive (Response to an electronic controlled substance refill request - RxReferenceNumber: [id number]) Ambien 10 mg tablet RxNorm: 325742 1 Tablet(s) PO daily as needed TAKE ONE TABLET BY MOUTH AT BEDTIME NEEDED FOR INSOMNIA 01/03/2016 03/31/2016 Inactive (Response to an electronic controlled substance refill request - RxReferenceNumber: [id number]) meclizine 25 mg tablet RxNorm: 891894 1 Tablet(s) PO QID 12/13/2015 01/11/2016 Inactive Xanax 0.25 mg tablet RxNorm: 354254 Tablet(s) TAKE ONE TABLET BY MOUTH EVERY 8 HOURS NEEDED FOR ANXIETY 11/23/2015 12/21/2015 Inactive (Response to an electronic controlled substance refill request - RxReferenceNumber: [id number]) topiramate 25 mg tablet RxNorm: 409833 1 Tablet(s) PO BID 11/02/2015 12/12/2015 Inactive pt needs to make an appt Ambien 10 mg tablet RxNorm: 072324 1 Tablet(s) PO daily as needed TAKE ONE TABLET BY MOUTH AT BEDTIME NEEDED FOR INSOMNIA 10/30/2015 11/19/2016 Inactive (Response to an electronic controlled substance refill request - RxReferenceNumber: [id number]) Xanax 0.25 mg tablet RxNorm: 380946 Tablet(s) TAKE ONE TABLET BY MOUTH EVERY 8 HOURS NEEDED FOR ANXIETY 09/20/2015 10/18/2015 Inactive (Response to an electronic controlled substance refill request - RxReferenceNumber: [id number]) Xanax 0.25 mg tablet RxNorm: 247976 Tablet(s) TAKE ONE TABLET BY MOUTH EVERY 8 HOURS NEEDED FOR ANXIETY 06/28/2015 08/25/2015 Inactive (Response to an electronic controlled substance refill request - RxReferenceNumber: [id number]) topiramate 25 mg tablet RxNorm: 635862 1 Tablet(s) PO BID 06/27/2015 10/24/2015 Inactive Ambien 10 mg tablet RxNorm: 463577 1 Tablet(s) PO daily as needed TAKE ONE TABLET BY MOUTH AT BEDTIME NEEDED FOR INSOMNIA 06/26/2015 09/23/2015 Inactive (Response to an electronic controlled substance refill request - RxReferenceNumber: [id number]) Xanax 0.25 mg tablet RxNorm: 729258 Tablet(s) TAKE ONE TABLET BY MOUTH EVERY 8 HOURS NEEDED FOR ANXIETY 04/04/2015 06/02/2015 Inactive (Response to an electronic controlled substance refill request - RxReferenceNumber: [id number]) Ambien 10 mg tablet RxNorm: 569319 1 Tablet(s) PO daily as needed TAKE ONE TABLET BY MOUTH AT BEDTIME NEEDED FOR INSOMNIA 02/16/2015 05/16/2015 Inactive (Response to an electronic controlled substance refill request - RxReferenceNumber: [id number]) Ambien 10 mg tablet RxNorm: 952590 TAKE ONE TABLET BY MOUTH AT BEDTIME NEEDED FOR INSOMNIA 01/11/2015 02/09/2015 Inactive (Response to an electronic controlled substance refill request - RxReferenceNumber: [id number]) Ambien 10 mg tablet RxNorm: 871192 1 Tablet(s) PO QHS as needed TAKE ONE TABLET BY MOUTH AT BEDTIME NEEDED 01/11/2015 01/11/2015 Inactive (Appended: Controlled substance eRx refill - RxReferenceNumber: [id number]) topiramate 25 mg tablet RxNorm: 017919 1 Tablet(s) PO BID 01/11/2015 05/10/2015 Inactive Xanax 0.25 mg tablet RxNorm: 043300 TAKE ONE TABLET BY MOUTH EVERY 8 HOURS NEEDED FOR ANXIETY 01/11/2015 02/09/2015 Inactive (Response to an electronic controlled substance refill request - RxReferenceNumber: [id number]) Xanax 0.25 mg tablet RxNorm: 730547 Tablet(s) TAKE ONE TABLET BY MOUTH EVERY 8 HOURS NEEDED FOR ANXIETY 01/11/2015 01/11/2015 Inactive (Response to an electronic controlled substance refill request - RxReferenceNumber: [id number]) Xanax 0.25 mg tablet RxNorm: 447807 Tablet(s) TAKE ONE TABLET BY MOUTH EVERY 8 HOURS NEEDED FOR ANXIETY 11/20/2014 12/17/2014 Inactive (Response to an electronic controlled substance refill request - RxReferenceNumber: [id number]) Xanax 0.25 mg tablet RxNorm: 962334 TAKE ONE TABLET BY MOUTH EVERY 8 HOURS NEEDED FOR ANXIETY 09/14/2014 10/13/2014 Inactive (Response to an electronic controlled substance refill request - RxReferenceNumber: [id number]) Xanax 0.25 mg tablet RxNorm: 322888 Tablet(s) PO TAKE ONE TABLET BY MOUTH EVERY 8 HOURS NEEDED FOR ANXIETY 09/12/2014 09/15/2014 Inactive (Appended: Controlled substance eRx refill - RxReferenceNumber: [id number]) Xanax 0.25 mg tablet RxNorm: 834822 TAKE ONE TABLET BY MOUTH EVERY 8 HOURS NEEDED FOR ANXIETY 07/31/2014 07/31/2014 Inactive (Response to an electronic controlled substance refill request - RxReferenceNumber: [id number]) Ambien 10 mg tablet RxNorm: 923130 TAKE ONE TABLET BY MOUTH AT BEDTIME NEEDED FOR INSOMNIA 07/31/2014 11/19/2016 Inactive (Response to an electronic controlled substance refill request - RxReferenceNumber: [id number]) Xanax 0.25 mg tablet RxNorm: 416049 TAKE ONE TABLET BY MOUTH EVERY 8 HOURS NEEDED FOR ANXIETY 07/31/2014 08/29/2014 Inactive (Response to an electronic controlled substance refill request - RxReferenceNumber: [id number]) metronidazole 500 mg tablet RxNorm: 136225 1 Tablet(s) PO TID 05/25/2014 05/31/2014 Inactive Diflucan 150 mg tablet RxNorm: 044083 1 Tablet(s) PO daily 05/25/2014 05/29/2014 Inactive topiramate 25 mg tablet RxNorm: 592093 1 Tablet(s) PO BID 04/24/2014 11/19/2014 Inactive Xanax 0.25 mg tablet RxNorm: 368516 Tablet(s) PO TAKE ONE TABLET BY MOUTH EVERY 8 HOURS NEEDED FOR ANXIETY 01/17/2014 07/31/2014 Inactive (Appended: Controlled substance eRx refill - RxReferenceNumber: [id number]) Xanax 0.25 mg tablet RxNorm: 148047 Tablet(s) PO TAKE ONE TABLET BY MOUTH EVERY 8 HOURS NEEDED FOR ANXIETY 01/16/2014 01/17/2014 Inactive (Appended: Controlled substance eRx refill - RxReferenceNumber: [id number]) Xanax 0.25 mg tablet RxNorm: 029259 Tablet(s) PO TAKE ONE TABLET BY MOUTH EVERY 8 HOURS NEEDED FOR ANXIETY 01/13/2014 09/11/2014 Inactive (Appended: Controlled substance eRx refill - RxReferenceNumber: [id number]) Xanax 0.25 mg tablet RxNorm: 622825 Tablet(s) PO TAKE ONE TABLET BY MOUTH EVERY 8 HOURS NEEDED FOR ANXIETY 11/21/2013 01/16/2014 Inactive (Appended: Controlled substance eRx refill - RxReferenceNumber: [id number]) Xanax 0.25 mg tablet RxNorm: 763786 Tablet(s) PO TAKE ONE TABLET BY MOUTH EVERY 8 HOURS NEEDED FOR ANXIETY 11/18/2013 01/15/2014 Inactive (Appended: Controlled substance eRx refill - RxReferenceNumber: [id number]) Ambien 10 mg tablet RxNorm: 841523 Tablet(s) PO TAKE ONE TABLET BY MOUTH EVERY DAY AT BEDTIME NEEDED 08/31/2013 07/31/2014 Inactive (Appended: Controlled substance eRx refill - RxReferenceNumber: [id number]) Ambien 10 mg tablet RxNorm: 517434 Tablet(s) PO TAKE ONE TABLET BY MOUTH EVERY DAY AT BEDTIME NEEDED 08/31/2013 08/30/2013 Inactive (Appended: Controlled substance eRx refill - RxReferenceNumber: [id number]) Xanax 0.25 mg tablet RxNorm: 590608 Tablet(s) PO TAKE ONE TABLET BY MOUTH EVERY 8 HOURS NEEDED FOR ANXIETY 07/21/2013 11/21/2013 Inactive (Appended: Controlled substance eRx refill - RxReferenceNumber: [id number]) Xanax 0.25 mg tablet RxNorm: 468221 Tablet(s) PO TAKE ONE TABLET BY MOUTH EVERY 8 HOURS NEEDED FOR ANXIETY 07/19/2013 07/21/2013 Inactive (Appended: Controlled substance eRx refill - RxReferenceNumber: [id number]) omeprazole 20 mg capsule,delayed release RxNorm: 158003 Capsule(s) PO TAKE ONE CAPSULE BY MOUTH EVERY DAY 05/23/2013 04/23/2014 Inactive Flagyl 500 mg tablet RxNorm: 121056 1 Tablet(s) PO BID 02/21/2013 02/20/2013 Inactive Flagyl 500 mg tablet RxNorm: 741561 1 Tablet(s) PO BID 02/21/2013 02/27/2013 Inactive fluconazole 150 mg tablet RxNorm: 042425 1 Tablet(s) PO PRN one pill as needed for yeast infection symptoms 02/14/2013 04/23/2014 Inactive Xanax 0.25 mg tablet RxNorm: 352889 Tablet(s) PO TAKE ONE TABLET BY MOUTH EVERY 8 HOURS NEEDED FOR ANXIETY 02/03/2013 11/20/2013 Inactive (Appended: Controlled substance eRx refill - RxReferenceNumber: [id number]) Ambien 10 mg tablet RxNorm: 050918 Tablet(s) PO TAKE ONE TABLET BY MOUTH AT BEDTIME NEEDED 02/03/2013 08/31/2013 Inactive (Appended: Controlled substance eRx refill - RxReferenceNumber: [id number]) Ambien 10 mg tablet RxNorm: 992470 Tablet(s) PO TAKE ONE TABLET BY MOUTH AT BEDTIME NEEDED 02/03/2013 01/10/2015 Inactive (Appended: Controlled substance eRx refill - RxReferenceNumber: [id number]) Xanax 0.25 mg tablet RxNorm: 321575 Tablet(s) PO 02/03/2013 07/20/2013 Inactive TAKE ONE TABLET BY MOUTH EVERY 8 HOURS NEEDED FOR ANXIETY (Appended: Controlled substance eRx refill - RxReferenceNumber: [id number]) Xanax 0.25 mg tablet RxNorm: 252139 Tablet(s) PO TAKE ONE TABLET BY MOUTH EVERY 8 HOURS NEEDED FOR ANXIETY 12/08/2012 02/03/2013 Inactive (Appended: Controlled substance eRx refill - RxReferenceNumber: [id number]) Ambien 10 mg tablet RxNorm: 953778 Tablet(s) PO TAKE ONE TABLET BY MOUTH AT BEDTIME NEEDED 12/08/2012 02/02/2013 Inactive (Appended: Controlled substance eRx refill - RxReferenceNumber: [id number]) Xanax 0.25 mg tablet RxNorm: 526036 Tablet(s) PO TAKE ONE TABLET BY MOUTH EVERY 8 HOURS NEEDED FOR ANXIETY 12/08/2012 12/07/2012 Inactive (Appended: Controlled substance eRx refill - RxReferenceNumber: [id number]) Ambien 10 mg tablet RxNorm: 305665 Tablet(s) PO TAKE ONE TABLET BY MOUTH AT BEDTIME NEEDED 12/08/2012 02/03/2013 Inactive (Appended: Controlled substance eRx refill - RxReferenceNumber: [id number]) Ambien 10 mg tablet RxNorm: 636679 Tablet(s) PO 08/27/2012 12/08/2012 Inactive TAKE ONE TABLET BY MOUTH AT BEDTIME NEEDED (Appended: Controlled substance eRx refill - RxReferenceNumber: [id number]) Xanax 0.25 mg tablet RxNorm: 518282 Tablet(s) PO 08/24/2012 02/02/2013 Inactive TAKE ONE TABLET BY MOUTH EVERY 8 HOURS NEEDED FOR ANXIETY (Appended: Controlled substance eRx refill - RxReferenceNumber: [id number]) Ambien 10 mg tablet RxNorm: 694208 Tablet(s) PO 08/24/2012 08/27/2012 Inactive TAKE ONE TABLET BY MOUTH AT BEDTIME NEEDED (Appended: Controlled substance eRx refill - RxReferenceNumber: [id number]) Xanax 0.25 mg tablet RxNorm: 201374 Tablet(s) PO 08/24/2012 12/08/2012 Inactive TAKE ONE TABLET BY MOUTH EVERY 8 HOURS NEEDED FOR ANXIETY (Appended: Controlled substance eRx refill - RxReferenceNumber: [id number]) Xanax 0.25 mg tablet RxNorm: 081074 1 Tablet(s) PO Q8 PRN 07/09/2012 08/24/2012 Inactive omeprazole 20 mg capsule,delayed release RxNorm: 438628 1 Capsule(s) PO daily 05/19/2012 12/14/2012 Inactive Ambien 10 mg tablet RxNorm: 841647 1 Tablet(s) PO QHS 05/19/2012 08/24/2012 Inactive Xanax 0.25 mg tablet RxNorm: 324453 1 Tablet(s) PO Q8 PRN 03/16/2012 06/13/2012 Inactive Diflucan 150 mg Tab RxNorm: 509965 1 Tablet(s) PO daily 01/05/2012 01/14/2012 Inactive Ambien 10 mg tablet RxNorm: 183886 1 Tablet(s) PO QHS 01/02/2012 04/30/2012 Inactive Ambien 10 mg Tab RxNorm: 142249 1 Tablet(s) PO QHS 12/24/2011 01/01/2012 Inactive Rocephin 500 mg Solution for Injection RxNorm: 905127 1 Milliliter(s) Inj 11/13/2011 11/13/2011 Inactive omeprazole 20 mg capsule,delayed release RxNorm: 340449 1 Capsule(s) PO daily 10/07/2011 05/18/2012 Inactive omeprazole 20 mg Cap, Delayed Release RxNorm: 130493 1 Capsule(s) PO daily 10/07/2011 04/03/2012 Inactive Ambien 5 mg Tab RxNorm: 745764 1 Tablet(s) PO QHS 1 tab q hs prn insomnia 10/07/2011 12/23/2011 Inactive Xanax 0.25 mg Tab RxNorm: 083886 1 Tablet(s) PO Q8 PRN 09/29/2011 03/15/2012 Inactive Medication Administered Medication Codes Instructions Start Date Status Rocephin 500 mg Solution for Injection RxNorm: 641052 1Milliliter 11/13/2011 No longer Active Immunizations Vaccine [...] Item Item Code Result Date GC/CHL PRB 5928406 CHLM PROBE NEG 04/26/2014 GC/CHL PRB 2463844 GC PROBE NEG 04/26/2014 TSH 7313953 TSH 2.977 uIU/ML 02/16/2013 GC/CHL PRB 4484452 SOURCE KIMBERLYN UNKNOWN 02/15/2013 GC/CHL PRB 7783109 CHLM PROBE NEG 02/15/2013 GC/CHL PRB 7676012 GC PROBE NEG 02/15/2013 CHEM 14 9817693 AST 12 U/L 02/15/2013 CHEM 14 6217035 ALT 16 IU/L 02/15/2013 CHEM 14 8991307 BUN 13 MG/DL 02/15/2013 CHEM 14 4223504 ALBUMIN 4.6 GM/DL 02/15/2013 CHEM 14 7242412 CHLORIDE 104 MMOL/L 02/15/2013 CHEM 14 2760375 BILI TOT 0.5 MG/DL 02/15/2013 CHEM 14 6369239 ALK PHOS 55 U/L 02/15/2013 CHEM 14 7962129 SODIUM 137 MMOL/L 02/15/2013 CHEM 14 5580214 CREATININE 0.79 MG/DL 02/15/2013 CHEM 14 2039378 CALCIUM 9.3 MG/DL 02/15/2013 CHEM 14 7062897 POTASSIUM 4.0 MMOL/L 02/15/2013 CHEM 14 7147437 PROT TOT 6.9 GM/DL 02/15/2013 CHEM 14 3777817 GLUCOSE 99 MG/DL 02/15/2013 CHEM 14 1197891 BICARB 29 MMOL/L 02/15/2013 CHEM 14 8012619 ANION GAP 4 MEQ/L 02/15/2013 GFR CALC 6156054 GFR AA >60 ML/MIN 02/15/2013 GFR CALC 2335945 GFR NON-AA >60 ML/MIN 02/15/2013 LIPID GRP HDL TEST 38 MG/DL 02/15/2013 LIPID GRP TRIG 126 MG/DL 02/15/2013 LIPID GRP TEST LDL 112 MG/DL 02/15/2013 LIPID GRP CHOL 175 MG/DL 02/15/2013 LIPID GRP RCHOL/HDL 4.61 RATIO 02/15/2013 CBC 5518100 WBC 5.8 10e9/L 02/15/2013 CBC 1700677 RBC 4.51 10e12/L 02/15/2013 CBC 8837020 HGB 13.8 g/dL 02/15/2013 CBC 7647837 HCT DET 39.0 % 02/15/2013 CBC 8743590 MCV 86.5 fL 02/15/2013 CBC 8954649 MCH 30.6 pg 02/15/2013 CBC 1133348 MCHC 35.4 g/dL 02/15/2013 CBC 9397610 PLT 284 10e9/L 02/15/2013 CBC 7131101 MPV 10.3 fL 02/15/2013 CBC 4133487 BLANQUITA % 62.9 % 02/15/2013 CBC 8101097 LY % 26.8 % 02/15/2013 CBC 2559775 MON % 9.1 % 02/15/2013 CBC 3064855 EOS % 1.2 % 02/15/2013 CBC 6869899 BASO % 0.0 % 02/15/2013 CBC 3763944 RDW 14.4 % 02/15/2013 CBC 8875772 ABS BLANQUITA 3.65 10e9/L 02/15/2013 CBC 0650862 ABS LYMPH 1.55 10e9/L 02/15/2013 CBC 0315834 ABS MONO 0.53 10e9/L 02/15/2013 CBC 9682856 ABS EOS 0.07 10e9/L 02/15/2013 CBC 0542049 ABS BASO 0.00 10e9/L 02/15/2013 CBC 9347682 RDW-SD 44.0 fL 02/15/2013 Review of Systems [...] PROBE (CHYLMD TRACH DNA AMP PROBE) CPT-4: 30646Tqwhoeo 04/24/2014 GC PROBE (N.GONORRHOEAE DNA AMP PROB) CPT-4: 25218Lxotftk 04/24/2014 ROUTINE VENIPUNCTURE CPT-4: 48611Taclnwz 02/15/2013 PREV VISIT EST AGE 40-64 CPT-4: 90892Agyevgn 01/05/2012 ROCEPHIN, PER 250 MG CPT-4: J5137Hybrkpl 11/13/2011 THER/PROPH/DIAG INJ SC/IM CPT-4: 43732Jpowwxx 11/13/2011 REMOVE IMPACTED EAR WAX UNI CPT-4: 85902Egfemnr 11/13/2011 Vital Signs Date Vital 02/19/2017 Blood Pressure 1: 132/70 Code: 8480-6 BMI: 30.1 Code: 37881-1 Heart Rate 1: 72 bpm Height: 5'8" SpO2: 98% Weight: 198 lbs 02/05/2017 Blood Pressure 1: 124/84 Code: 8480-6 BMI: 29.3 Code: 16946-2 Heart Rate 1: 98 bpm Height: 5'8" SpO2: 98% Weight: 193 lbs 11/20/2016 Blood Pressure 1: 130/86 Code: 8480-6 BMI: 30.0 Code: 84102-7 Heart Rate 1: 90 bpm Height: 5'8" SpO2: 99% Weight: 197 lbs 09/26/2016 Blood Pressure 1: 12484 Code: 8480-6 Heart Rate 1: 74 bpm SpO2: 97% Weight: 203 lbs 08/25/2016 Blood Pressure 1: 124/86 Code: 8480-6 BMI: 31.0 Code: 31387-4 Heart Rate 1: 90 bpm Height: 5'8" SpO2: 95% Weight: 204 lbs 12/13/2015 Blood Pressure 1: 112/80 Code: 8480-6 BMI: 31.5 Code: 94784-6 Heart Rate 1: 87 bpm Height: 5'8" SpO2: 97% Weight: 207 lbs 11/15/2015 Blood Pressure 1: 146/78 Code: 8480-6 BMI: 32.1 Code: 84001-3 Heart Rate 1: 96 bpm Height: 5'8" SpO2: 97% Weight: 211 lbs 06/28/2015 Blood Pressure 1: 132/64 Code: 8480-6 BMI: 29.5 Code: 01302-6 Heart Rate 1: 91 bpm Height: 5'8" SpO2: 98% Weight: 194 lbs 05/23/2014 Blood Pressure 1: 124/80 Code: 8480-6 BMI: 30.3 Code: 75331-9 Heart Rate 1: 68 bpm Height: 5'8" Weight: 199 lbs 04/24/2014 Blood Pressure 1: 132/72 Code: 8480-6 BMI: 30.7 Code: 44180-6 Heart Rate 1: 82 bpm Height: 5'8" SpO2: 98% Weight: 202 lbs 02/14/2013 Blood Pressure 1: 122/80 Code: 8480-6 BMI: 28.6 Code: 76623-1 Heart Rate 1: 84 bpm Height: 5'8" Respiratory Rate: 16 bpm Weight: 188 lbs 02/16/2012 Blood Pressure 1: 104/66 Code: 8480-6 BMI: 28.5 Code: 64225-3 Heart Rate 1: 76 bpm Height: 5'7" Weight: 182 lbs 01/05/2012 Blood Pressure 1: 100/64 Code: 8480-6 BMI: 28.7 Code: 93674-2 Heart Rate 1: 78 bpm Height: 5'7" Respiratory Rate: 16 bpm Weight: 183 lbs 11/13/2011 Blood Pressure 1: 116/78 Code: 8480-6 Heart Rate 1: 84 bpm Respiratory Rate: 16 bpm SpO2: 98% Temperature: 36.7 (C) / 98.1 (F) Weight: 181 lbs 09/29/2011 Blood Pressure 1: 118/82 Code: 8480-6 BMI: 36.8 Code: 55492-0 Heart Rate 1: 72 bpm Height: 4'10" [...] the day. 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 PATIENT, LEVEL III Diagnosis: Generalized anxiety disorder[ICD10: F41.1] Diagnosis: Other obesity due to excess calories[ICD10: E66.09] [facility] CPT-4: 94131 11/20/2016 ([id number]) Miscellaneous no charge Diagnosis: Other obesity due to excess calories[ICD10: E66.09] Maylin Jain MD, [facility] CPT-4: 41827 09/26/2016 ([id number]) 46204 EST. PATIENT, LEVEL IV Diagnosis: Generalized anxiety disorder[ICD10: F41.1] Diagnosis: Adjustment insomnia[ICD10: F51.02] Diagnosis: Other obesity due to excess calories[ICD10: E66.09] Unique Jain MD, [facility] CPT-4: 02540 08/25/2016 [id number] EST. PATIENT, LEVEL IV Diagnosis: Dizziness and giddiness[ICD10: R42] Maylin Jain MD, [facility] CPT- 4: 90511 12/13/2015 39539 EST. PATIENT, LEVEL IV Diagnosis: Dizziness and giddiness[ICD10: R42] Diagnosis: Other chest pain[ICD10: R07.89] Maylin Jain MD, [facility] CPT-4: 45798 11/15/2015 ([id number]) 32497 EST. PATIENT, LEVEL III Diagnosis: GENERALIZED ANXIETY DISEASE[ICD9: 300.02] Diagnosis: Migraines[ICD9: 346.90] Unique Jain MD, [facility] CPT-4: 54508 06/28/2015 ([id number]) 72014 EST. PATIENT, LEVEL III Diagnosis: Right ankle pain[ICD9: 719.47] Diagnosis: Right ankle sprain[ICD9: 845.00] Unique Jain MD, [facility] CPT- 4: 29540 05/23/2014 ([id number]) PREV VISIT EST AGE 40-64 Diagnosis: ROUTINE GYNE EXAM[ICD9: V72.31] Diagnosis: Laboratory exam ordered as part of routine general medical examination[ICD9: V72.62] Bianca Jain MD, [facility] CPT-4: 66489 04/24/2014 ([id number]) PREV VISIT EST AGE 40-64 Diagnosis: Well woman exam with routine gynecological exam[ICD9: V72.31] [facility] CPT-4: 94840 02/14/2013 01125 EST. PATIENT, LEVEL IV Diagnosis: Numbness in both legs[ICD9: 782.0] Diagnosis: Myalgia[ICD9: 729.1] Unqiue Jain MD, [facility] CPT-4: 50819 02/16/2012 ([id number]) 08857 EST. PATIENT, LEVEL IV Diagnosis: Acute maxillary sinusitis[ICD9: 461.0] Diagnosis: Cough[ICD9: 786.2] Diagnosis: Cerumen impaction[ICD9: 380.4] Bianca Jain MD, [facility] CPT-4: 97581 11/13/2011 ([id number]) OFFICE VISIT, NEW - LEVEL 3 Diagnosis: GENERALIZED ANXIETY DISEASE[ICD9: 300.02] Diagnosis: DEPRESSIVE DISORDER NEC[ICD9: 311] Diagnosis: Impacted cerumen[ICD9: 380.4] Diagnosis: HEARING LOSS[ICD9: 389.9] Bianca Jain MD, [facility] CPT-4: 01302 09/29/2011 Plan of Care Planned Activity Notes Codes Status Date Visit Plan: Mild intermittent swelling above clavicles - The pt is to use prn antiinflammatories to manage acute pain. The patient is to call the office if the pain is worsening or does not improve. 02/19/2017 Appointment: Maylin Chowdhury WPtel: [address] [place] [address] (15 min) Moderate 02/19/2017 Patient Education: Patient [...] PAP Pending 02/05/2017 Appointment: Bianca Jain WPtel: [facility] Well Woman 01/22/2017 Visit Plan: Obesity - chronic issue with this patient. The pt has been counseled about diet changes, calorie restriction, and need to exercise. Pt will RTC in one month for weight check.Anxiety - refill anxiolytic 11/20/2016 Appointment: [facility]ain [facility] [phone] [facility] [place] [facility] 11/20/2016 Patient Education: Patient Medication [...] in situational exposure. No change in current medications.Bjjgnpoy-hjhkrxaels-nygiin ambien for prn use Obesity - chronic [...] in situational exposure. No change in current medications.Tlzsvxpn-bvxrewzapw-ogjfdd ambien for prn use Obesity - chronic issue with this patient. The pt has been counseled about diet changes, calorie restriction, and need to exercise. Pt will RTC in one month for weight check. 08/25/2016 [facility]ment: [facility] [address] [facility] (15 min) Moderate 08/25/2016 Patient Education: Patient [...] pt consult with Dr. Shun Harrison at [facility].Migraine headaches - start on topamax. 04/24/2014 Appointment: iBanca Jain WPtel: [facility] [place] Pap Only 04/24/2014 Patient Education: Patient Medication Summary Completed 04/24/2014 Care Plan: PAP Pending 04/24/2014 Appointment: Unique Nichole WPtel: [phone] Other 05/31/2013 Patient Education: Patient Medication Summary [...] Summary Completed 02/14/2013 Appointment: Bianca Jain WPtel: [address] [place], [place] [id number] Pap Only 01/31/2013 Appointment: Unique Nichole WPtel: [address] [place], [place] [phone] Other 09/13/2012 Visit Plan: Numbness-bilateral lower srh-zkeolcnd-hlul to check labs including chem panel to evaluate electrolytes as well as blood sugar, cbc, and b12 level. Recommend patient start on a multivitamin daily and drink plenty of fluids. Will call patient with labs results. Instructed patient to call with any concerns or worsening symptoms. Patient verbalized understanding of plan. 02/16/2012 Appointment: Unique Nichole WPtel: [address] [place], [place] [phone] Other 02/16/2012 Patient Education: Patient Medication Summary [...] skin cancer. 01/05/2012 Appointment: Bianca Jain WPtel: [phone] Pap Only 01/05/2012 Patient Education: Patient [...] not improved. 11/13/2011 Appointment: Bianca Jain WPtel: [address] [place] [address] Other 11/13/2011 Patient Education: Patient Medication Summary [...] removal process. 09/29/2011 Appointment: Bianca Jain WPtel: [address] [place] [address] [place] New Patient 09/29/2011 Patient Education: Patient [...] situational exposure. No change in current medications. Zsfrgxoo-axucidzqlf-vhqsfo ambien for prn use Obesity - chronic [...] situational exposure. No change in current medications. Dmcrxpap-daiyhwhuse-cxtbes ambien for prn use Obesity - chronic [...] symptoms worsen, or with any other concerns. [facility] shun harrison and saritha quick [...] pt consult with Dr. Shun Harrison at [facility]. Migraine headaches - start on topamax. Check labs-cbc, cmp, b12 level. . Numbness-bilateral lower hcw-ezhbcyav-rald to check labs including chem panel to [...]
--- OUTSIDE RECORDS SUMMARY | 2019-03-03 06:33 | XMS REPORT | CCD ---
Author Author [facility]ca Jain Organization [facility] Address [address] [place] [address] Phone Care Team Providers Care Engineering Teacher Name Role Phone Bianca Jain PP Unavailable CCM Unavailable Summary Purpose Interface Exchange Insurance Providers Payer name Policy type / Coverage type Covered alliance party ID Effective Begin Date Effective End Date [employer] [facility] [email or web address] [id number] Unknown Family history Brother Diagnosis Age At [...] Effective Dates Employment Unknown Currently employed [employer] Registration 11/20/2016 Marital status Unknown 01/05/[address]: 229259362 Never smoker 09/29/[address]: 780788 Currently drinks alcohol 3 weekly 09/29/2011 Has [...] Fill Instructions topiramate 25 mg tablet RxNorm: 438373 TAKE ONE TABLET BY MOUTH TWICE DAILY 03/20/2017 06/17/2017 Active Flagyl 500 mg tablet RxNorm: 394297 1 Tablet(s) PO TID do not drink alcohol when taking this medication 02/05/2017 02/09/2017 Inactive Ambien 10 mg tablet RxNorm: 120707 1 Tablet(s) PO QHS as needed insomnia 01/23/2017 04/22/2017 Active Xanax 0.25 mg tablet RxNorm: 132143 TAKE ONE TABLET BY MOUTH EVERY 8 HOURS NEEDED FOR ANXIETY 01/23/2017 04/22/2017 Active Xanax 0.25 mg tablet RxNorm: 153281 1 Tablet(s) PO TAKE ONE TABLET BY MOUTH EVERY 8 HOURS NEEDED FOR ANXIETY 11/28/2016 01/25/2017 Inactive Lexapro 10 mg tablet RxNorm: 836479 1 Tablet(s) PO QPM 11/20/2016 04/18/2017 Active topiramate 25 mg tablet RxNorm: 579594 1 Tablet(s) PO BID start one pill at hs, if migraines not improving, then increase to bid 11/20/2016 01/18/2017 Inactive Ambien 10 mg tablet RxNorm: 334723 1 Tablet(s) PO QHS as needed TAKE ONE TABLET BY MOUTH AT BEDTIME NEEDED FOR INSOMNIA 10/31/2016 01/27/2017 Inactive acyclovir 400 mg tablet RxNorm: 501065 1 Tablet(s) PO TID 10/01/2016 10/05/2016 Inactive acyclovir 400 mg tablet RxNorm: 447279 1 Tablet(s) PO TID 10/01/2016 09/30/2016 Inactive phentermine 37.5 mg tablet RxNorm: 128013 1 Tablet(s) PO daily 09/26/2016 02/04/2017 Inactive Xanax 0.25 mg tablet RxNorm: 694037 Tablet(s) TAKE ONE TABLET BY MOUTH EVERY 8 HOURS NEEDED FOR ANXIETY 08/25/2016 10/22/2016 Inactive Ambien 10 mg tablet RxNorm: 978043 1 Tablet(s) PO daily as needed TAKE ONE TABLET BY MOUTH AT BEDTIME NEEDED FOR INSOMNIA 08/25/2016 11/19/2016 Inactive phentermine 37.5 mg tablet RxNorm: 082389 1 Tablet(s) PO daily 08/25/2016 09/25/2016 Inactive topiramate 25 mg tablet RxNorm: 598875 TAKE ONE TABLET BY MOUTH TWICE DAILY 07/09/2016 08/24/2016 Inactive Xanax 0.25 mg tablet RxNorm: 713926 Tablet(s) TAKE ONE TABLET BY MOUTH EVERY 8 HOURS NEEDED FOR ANXIETY 04/28/2016 06/25/2016 Inactive Ambien 10 mg tablet RxNorm: 671411 1 Tablet(s) PO daily as needed TAKE ONE TABLET BY MOUTH AT BEDTIME NEEDED FOR INSOMNIA 04/28/2016 06/24/2016 Inactive topiramate 25 mg tablet RxNorm: 650668 1 Tablet(s) PO BID 02/20/2016 06/18/2016 Inactive Xanax 0.25 mg tablet RxNorm: 098856 Tablet(s) TAKE ONE TABLET BY MOUTH EVERY 8 HOURS NEEDED FOR ANXIETY 01/03/2016 03/31/2016 Inactive (Response to an electronic controlled substance refill request - RxReferenceNumber: [id number]) Ambien 10 mg tablet RxNorm: 447972 1 Tablet(s) PO daily as needed TAKE ONE TABLET BY MOUTH AT BEDTIME NEEDED FOR INSOMNIA 01/03/2016 03/31/2016 Inactive (Response to an electronic controlled substance refill request - RxReferenceNumber: [id number]) meclizine 25 mg tablet RxNorm: 920974 1 Tablet(s) PO QID 12/13/2015 01/11/2016 Inactive Xanax 0.25 mg tablet RxNorm: 497899 Tablet(s) TAKE ONE TABLET BY MOUTH EVERY 8 HOURS NEEDED FOR ANXIETY 11/23/2015 12/21/2015 Inactive (Response to an electronic controlled substance refill request - RxReferenceNumber: [id number]) topiramate 25 mg tablet RxNorm: 061392 1 Tablet(s) PO BID 11/02/2015 12/12/2015 Inactive pt needs to make an appt Ambien 10 mg tablet RxNorm: 572732 1 Tablet(s) PO daily as needed TAKE ONE TABLET BY MOUTH AT BEDTIME NEEDED FOR INSOMNIA 10/30/2015 11/19/2016 Inactive (Response to an electronic controlled substance refill request - RxReferenceNumber: [id number]) Xanax 0.25 mg tablet RxNorm: 416054 Tablet(s) TAKE ONE TABLET BY MOUTH EVERY 8 HOURS NEEDED FOR ANXIETY 09/20/2015 10/18/2015 Inactive (Response to an electronic controlled substance refill request - RxReferenceNumber: [id number]) Xanax 0.25 mg tablet RxNorm: 881857 Tablet(s) TAKE ONE TABLET BY MOUTH EVERY 8 HOURS NEEDED FOR ANXIETY 06/28/2015 08/25/2015 Inactive (Response to an electronic controlled substance refill request - RxReferenceNumber: [id number]) topiramate 25 mg tablet RxNorm: 367470 1 Tablet(s) PO BID 06/27/2015 10/24/2015 Inactive Ambien 10 mg tablet RxNorm: 922718 1 Tablet(s) PO daily as needed TAKE ONE TABLET BY MOUTH AT BEDTIME NEEDED FOR INSOMNIA 06/26/2015 09/23/2015 Inactive (Response to an electronic controlled substance refill request - RxReferenceNumber: [id number]) Xanax 0.25 mg tablet RxNorm: 173365 Tablet(s) TAKE ONE TABLET BY MOUTH EVERY 8 HOURS NEEDED FOR ANXIETY 04/04/2015 06/02/2015 Inactive (Response to an electronic controlled substance refill request - RxReferenceNumber: [id number]) Ambien 10 mg tablet RxNorm: 340105 1 Tablet(s) PO daily as needed TAKE ONE TABLET BY MOUTH AT BEDTIME NEEDED FOR INSOMNIA 02/16/2015 05/16/2015 Inactive (Response to an electronic controlled substance refill request - RxReferenceNumber: [id number]) Ambien 10 mg tablet RxNorm: 027462 TAKE ONE TABLET BY MOUTH AT BEDTIME NEEDED FOR INSOMNIA 01/11/2015 02/09/2015 Inactive (Response to an electronic controlled substance refill request - RxReferenceNumber: [id number]) Ambien 10 mg tablet RxNorm: 559993 1 Tablet(s) PO QHS as needed TAKE ONE TABLET BY MOUTH AT BEDTIME NEEDED 01/11/2015 01/11/2015 Inactive (Appended: Controlled substance eRx refill - RxReferenceNumber: [id number]) topiramate 25 mg tablet RxNorm: 224438 1 Tablet(s) PO BID 01/11/2015 05/10/2015 Inactive Xanax 0.25 mg tablet RxNorm: 614949 TAKE ONE TABLET BY MOUTH EVERY 8 HOURS NEEDED FOR ANXIETY 01/11/2015 02/09/2015 Inactive (Response to an electronic controlled substance refill request - RxReferenceNumber: [id number]) Xanax 0.25 mg tablet RxNorm: 409418 Tablet(s) TAKE ONE TABLET BY MOUTH EVERY 8 HOURS NEEDED FOR ANXIETY 01/11/2015 01/11/2015 Inactive (Response to an electronic controlled substance refill request - RxReferenceNumber: [id number]) Xanax 0.25 mg tablet RxNorm: 667562 Tablet(s) TAKE ONE TABLET BY MOUTH EVERY 8 HOURS NEEDED FOR ANXIETY 11/20/2014 12/17/2014 Inactive (Response to an electronic controlled substance refill request - RxReferenceNumber: [id number]) Xanax 0.25 mg tablet RxNorm: 163613 TAKE ONE TABLET BY MOUTH EVERY 8 HOURS NEEDED FOR ANXIETY 09/14/2014 10/13/2014 Inactive (Response to an electronic controlled substance refill request - RxReferenceNumber: [id number]) Xanax 0.25 mg tablet RxNorm: 490012 Tablet(s) PO TAKE ONE TABLET BY MOUTH EVERY 8 HOURS NEEDED FOR ANXIETY 09/12/2014 09/15/2014 Inactive (Appended: Controlled substance eRx refill - RxReferenceNumber: [id number]) Xanax 0.25 mg tablet RxNorm: 172000 TAKE ONE TABLET BY MOUTH EVERY 8 HOURS NEEDED FOR ANXIETY 07/31/2014 07/31/2014 Inactive (Response to an electronic controlled substance refill request - RxReferenceNumber: [id number]) Ambien 10 mg tablet RxNorm: 628967 TAKE ONE TABLET BY MOUTH AT BEDTIME NEEDED FOR INSOMNIA 07/31/2014 11/19/2016 Inactive (Response to an electronic controlled substance refill request - RxReferenceNumber: [id number]) Xanax 0.25 mg tablet RxNorm: 720558 TAKE ONE TABLET BY MOUTH EVERY 8 HOURS NEEDED FOR ANXIETY 07/31/2014 08/29/2014 Inactive (Response to an electronic controlled substance refill request - RxReferenceNumber: [id number]) metronidazole 500 mg tablet RxNorm: 311976 1 Tablet(s) PO TID 05/25/2014 05/31/2014 Inactive Diflucan 150 mg tablet RxNorm: 493265 1 Tablet(s) PO daily 05/25/2014 05/29/2014 Inactive topiramate 25 mg tablet RxNorm: 476749 1 Tablet(s) PO BID 04/24/2014 11/19/2014 Inactive Xanax 0.25 mg tablet RxNorm: 837877 Tablet(s) PO TAKE ONE TABLET BY MOUTH EVERY 8 HOURS NEEDED FOR ANXIETY 01/17/2014 07/31/2014 Inactive (Appended: Controlled substance eRx refill - RxReferenceNumber: [id number]) Xanax 0.25 mg tablet RxNorm: 119490 Tablet(s) PO TAKE ONE TABLET BY MOUTH EVERY 8 HOURS NEEDED FOR ANXIETY 01/16/2014 01/17/2014 Inactive (Appended: Controlled substance eRx refill - RxReferenceNumber: [id number]) Xanax 0.25 mg tablet RxNorm: 857852 Tablet(s) PO TAKE ONE TABLET BY MOUTH EVERY 8 HOURS NEEDED FOR ANXIETY 01/13/2014 09/11/2014 Inactive (Appended: Controlled substance eRx refill - RxReferenceNumber: [id number]) Xanax 0.25 mg tablet RxNorm: 090942 Tablet(s) PO TAKE ONE TABLET BY MOUTH EVERY 8 HOURS NEEDED FOR ANXIETY 11/21/2013 01/16/2014 Inactive (Appended: Controlled substance eRx refill - RxReferenceNumber: [id number]) Xanax 0.25 mg tablet RxNorm: 920488 Tablet(s) PO TAKE ONE TABLET BY MOUTH EVERY 8 HOURS NEEDED FOR ANXIETY 11/18/2013 01/15/2014 Inactive (Appended: Controlled substance eRx refill - RxReferenceNumber: [id number]) Ambien 10 mg tablet RxNorm: 561836 Tablet(s) PO TAKE ONE TABLET BY MOUTH EVERY DAY AT BEDTIME NEEDED 08/31/2013 07/31/2014 Inactive (Appended: Controlled substance eRx refill - RxReferenceNumber: [id number]) Ambien 10 mg tablet RxNorm: 814730 Tablet(s) PO TAKE ONE TABLET BY MOUTH EVERY DAY AT BEDTIME NEEDED 08/31/2013 08/30/2013 Inactive (Appended: Controlled substance eRx refill - RxReferenceNumber: [id number]) Xanax 0.25 mg tablet RxNorm: 897954 Tablet(s) PO TAKE ONE TABLET BY MOUTH EVERY 8 HOURS NEEDED FOR ANXIETY 07/21/2013 11/21/2013 Inactive (Appended: Controlled substance eRx refill - RxReferenceNumber: [id number]) Xanax 0.25 mg tablet RxNorm: 358481 Tablet(s) PO TAKE ONE TABLET BY MOUTH EVERY 8 HOURS NEEDED FOR ANXIETY 07/19/2013 07/21/2013 Inactive (Appended: Controlled substance eRx refill - RxReferenceNumber: [id number]) omeprazole 20 mg capsule,delayed release RxNorm: 386089 Capsule(s) PO TAKE ONE CAPSULE BY MOUTH EVERY DAY 05/23/2013 04/23/2014 Inactive Flagyl 500 mg tablet RxNorm: 608711 1 Tablet(s) PO BID 02/21/2013 02/20/2013 Inactive Flagyl 500 mg tablet RxNorm: 724537 1 Tablet(s) PO BID 02/21/2013 02/27/2013 Inactive fluconazole 150 mg tablet RxNorm: 600286 1 Tablet(s) PO PRN one pill as needed for yeast infection symptoms 02/14/2013 04/23/2014 Inactive Xanax 0.25 mg tablet RxNorm: 928396 Tablet(s) PO TAKE ONE TABLET BY MOUTH EVERY 8 HOURS NEEDED FOR ANXIETY 02/03/2013 11/20/2013 Inactive (Appended: Controlled substance eRx refill - RxReferenceNumber: [id number]) Ambien 10 mg tablet RxNorm: 071070 Tablet(s) PO TAKE ONE TABLET BY MOUTH AT BEDTIME NEEDED 02/03/2013 08/31/2013 Inactive (Appended: Controlled substance eRx refill - RxReferenceNumber: [id number]) Ambien 10 mg tablet RxNorm: 129560 Tablet(s) PO TAKE ONE TABLET BY MOUTH AT BEDTIME NEEDED 02/03/2013 01/10/2015 Inactive (Appended: Controlled substance eRx refill - RxReferenceNumber: [id number]) Xanax 0.25 mg tablet RxNorm: 021168 Tablet(s) PO 02/03/2013 07/20/2013 Inactive TAKE ONE TABLET BY MOUTH EVERY 8 HOURS NEEDED FOR ANXIETY (Appended: Controlled substance eRx refill - RxReferenceNumber: [id number]) Xanax 0.25 mg tablet RxNorm: 860529 Tablet(s) PO TAKE ONE TABLET BY MOUTH EVERY 8 HOURS NEEDED FOR ANXIETY 12/08/2012 02/03/2013 Inactive (Appended: Controlled substance eRx refill - RxReferenceNumber: [id number]) Ambien 10 mg tablet RxNorm: 113899 Tablet(s) PO TAKE ONE TABLET BY MOUTH AT BEDTIME NEEDED 12/08/2012 02/02/2013 Inactive (Appended: Controlled substance eRx refill - RxReferenceNumber: [id number]) Xanax 0.25 mg tablet RxNorm: 225833 Tablet(s) PO TAKE ONE TABLET BY MOUTH EVERY 8 HOURS NEEDED FOR ANXIETY 12/08/2012 12/07/2012 Inactive (Appended: Controlled substance eRx refill - RxReferenceNumber: [id number]) Ambien 10 mg tablet RxNorm: 101212 Tablet(s) PO TAKE ONE TABLET BY MOUTH AT BEDTIME NEEDED 12/08/2012 02/03/2013 Inactive (Appended: Controlled substance eRx refill - RxReferenceNumber: [id number]) Ambien 10 mg tablet RxNorm: 632427 Tablet(s) PO 08/27/2012 12/08/2012 Inactive TAKE ONE TABLET BY MOUTH AT BEDTIME NEEDED (Appended: Controlled substance eRx refill - RxReferenceNumber: [id number]) Xanax 0.25 mg tablet RxNorm: 954775 Tablet(s) PO 08/24/2012 02/02/2013 Inactive TAKE ONE TABLET BY MOUTH EVERY 8 HOURS NEEDED FOR ANXIETY (Appended: Controlled substance eRx refill - RxReferenceNumber: [id number]) Ambien 10 mg tablet RxNorm: 420583 Tablet(s) PO 08/24/2012 08/27/2012 Inactive TAKE ONE TABLET BY MOUTH AT BEDTIME NEEDED (Appended: Controlled substance eRx refill - RxReferenceNumber: [id number]) Xanax 0.25 mg tablet RxNorm: 152636 Tablet(s) PO 08/24/2012 12/08/2012 Inactive TAKE ONE TABLET BY MOUTH EVERY 8 HOURS NEEDED FOR ANXIETY (Appended: Controlled substance eRx refill - RxReferenceNumber: [id number]) Xanax 0.25 mg tablet RxNorm: 931140 1 Tablet(s) PO Q8 PRN 07/09/2012 08/24/2012 Inactive omeprazole 20 mg capsule,delayed release RxNorm: 574657 1 Capsule(s) PO daily 05/19/2012 12/14/2012 Inactive Ambien 10 mg tablet RxNorm: 838846 1 Tablet(s) PO QHS 05/19/2012 08/24/2012 Inactive Xanax 0.25 mg tablet RxNorm: 392958 1 Tablet(s) PO Q8 PRN 03/16/2012 06/13/2012 Inactive Diflucan 150 mg Tab RxNorm: 639603 1 Tablet(s) PO daily 01/05/2012 01/14/2012 Inactive Ambien 10 mg tablet RxNorm: 360683 1 Tablet(s) PO QHS 01/02/2012 04/30/2012 Inactive Ambien 10 mg Tab RxNorm: 767044 1 Tablet(s) PO QHS 12/24/2011 01/01/2012 Inactive Rocephin 500 mg Solution for Injection RxNorm: 547578 1 Milliliter(s) Inj 11/13/2011 11/13/2011 Inactive omeprazole 20 mg capsule,delayed release RxNorm: 186514 1 Capsule(s) PO daily 10/07/2011 05/18/2012 Inactive omeprazole 20 mg Cap, Delayed Release RxNorm: 448303 1 Capsule(s) PO daily 10/07/2011 04/03/2012 Inactive Ambien 5 mg Tab RxNorm: 111878 1 Tablet(s) PO QHS 1 tab q hs prn insomnia 10/07/2011 12/23/2011 Inactive Xanax 0.25 mg Tab RxNorm: 742328 1 Tablet(s) PO Q8 PRN 09/29/2011 03/15/2012 Inactive Medication Administered Medication Codes Instructions Start Date Status Rocephin 500 mg Solution for Injection RxNorm: 232672 1Milliliter 11/13/2011 No longer Active Immunizations Vaccine [...] Item Item Code Result Date GC/CHL PRB 3491103 CHLM PROBE NEG 04/26/2014 GC/CHL PRB 0070810 GC PROBE NEG 04/26/2014 TSH 4529419 TSH 2.977 uIU/ML 02/16/2013 GC/CHL PRB 3430957 SOURCE KIMBERLYN UNKNOWN 02/15/2013 GC/CHL PRB 2958396 CHLM PROBE NEG 02/15/2013 GC/CHL PRB 8340435 GC PROBE NEG 02/15/2013 CHEM 14 1786493 AST 12 U/L 02/15/2013 CHEM 14 5093429 ALT 16 IU/L 02/15/2013 CHEM 14 9674743 BUN 13 MG/DL 02/15/2013 CHEM 14 6499463 ALBUMIN 4.6 GM/DL 02/15/2013 CHEM 14 9648942 CHLORIDE 104 MMOL/L 02/15/2013 CHEM 14 8953481 BILI TOT 0.5 MG/DL 02/15/2013 CHEM 14 6624929 ALK PHOS 55 U/L 02/15/2013 CHEM 14 7501019 SODIUM 137 MMOL/L 02/15/2013 CHEM 14 0456387 CREATININE 0.79 MG/DL 02/15/2013 CHEM 14 3066425 CALCIUM 9.3 MG/DL 02/15/2013 CHEM 14 7864091 POTASSIUM 4.0 MMOL/L 02/15/2013 CHEM 14 2359993 PROT TOT 6.9 GM/DL 02/15/2013 CHEM 14 2860993 GLUCOSE 99 MG/DL 02/15/2013 CHEM 14 9566022 BICARB 29 MMOL/L 02/15/2013 CHEM 14 4119730 ANION GAP 4 MEQ/L 02/15/2013 GFR CALC 9588475 GFR AA >60 ML/MIN 02/15/2013 GFR CALC 1348582 GFR NON-AA >60 ML/MIN 02/15/2013 LIPID GRP HDL TEST 38 MG/DL 02/15/2013 LIPID GRP TRIG 126 MG/DL 02/15/2013 LIPID GRP TEST LDL 112 MG/DL 02/15/2013 LIPID GRP CHOL 175 MG/DL 02/15/2013 LIPID GRP RCHOL/HDL 4.61 RATIO 02/15/2013 CBC 8458247 WBC 5.8 10e9/L 02/15/2013 CBC 7882297 RBC 4.51 10e12/L 02/15/2013 CBC 6824735 HGB 13.8 g/dL 02/15/2013 CBC 1519744 HCT DET 39.0 % 02/15/2013 CBC 0726759 MCV 86.5 fL 02/15/2013 CBC 1440990 MCH 30.6 pg 02/15/2013 CBC 2092818 MCHC 35.4 g/dL 02/15/2013 CBC 9081279 PLT 284 10e9/L 02/15/2013 CBC 0739751 MPV 10.3 fL 02/15/2013 CBC 3204983 BLANQUITA % 62.9 % 02/15/2013 CBC 2822775 LY % 26.8 % 02/15/2013 CBC 0125956 MON % 9.1 % 02/15/2013 CBC 3574584 EOS % 1.2 % 02/15/2013 CBC 7552787 BASO % 0.0 % 02/15/2013 CBC 7479776 RDW 14.4 % 02/15/2013 CBC 4068006 ABS BLANQUITA 3.65 10e9/L 02/15/2013 CBC 5181804 ABS LYMPH 1.55 10e9/L 02/15/2013 CBC 3947194 ABS MONO 0.53 10e9/L 02/15/2013 CBC 0615311 ABS EOS 0.07 10e9/L 02/15/2013 CBC 3021350 ABS BASO 0.00 10e9/L 02/15/2013 CBC 2330540 RDW-SD 44.0 fL 02/15/2013 Review of Systems [...] PROBE (CHYLMD TRACH DNA AMP PROBE) CPT-4: 98916Mvgldhs 04/24/2014 GC PROBE (N.GONORRHOEAE DNA AMP PROB) CPT-4: 21603Sgbgauu 04/24/2014 ROUTINE VENIPUNCTURE CPT-4: 58331Ifmcwhm 02/15/2013 PREV VISIT EST AGE 40-64 CPT-4: 99241Zqmzlbq 01/05/2012 ROCEPHIN, PER 250 MG CPT-4: W2023Rdffzqv 11/13/2011 THER/PROPH/DIAG INJ SC/IM CPT-4: 36352Mczlebw 11/13/2011 REMOVE IMPACTED EAR WAX UNI CPT-4: 56306Xuidvkr 11/13/2011 Vital Signs Date Vital 02/19/2017 Blood Pressure 1: 132/70 Code: 8480-6 BMI: 30.1 Code: 67388-9 Heart Rate 1: 72 bpm Height: 5'8" SpO2: 98% Weight: 198 lbs 02/05/2017 Blood Pressure 1: 124/84 Code: 8480-6 BMI: 29.3 Code: 69040-3 Heart Rate 1: 98 bpm Height: 5'8" SpO2: 98% Weight: 193 lbs 11/20/2016 Blood Pressure 1: 130/86 Code: 8480-6 BMI: 30.0 Code: 28718-4 Heart Rate 1: 90 bpm Height: 5'8" SpO2: 99% Weight: 197 lbs 09/26/2016 Blood Pressure 1: 12484 Code: 8480-6 Heart Rate 1: 74 bpm SpO2: 97% Weight: 203 lbs 08/25/2016 Blood Pressure 1: 124/86 Code: 8480-6 BMI: 31.0 Code: 15192-4 Heart Rate 1: 90 bpm Height: 5'8" SpO2: 95% Weight: 204 lbs 12/13/2015 Blood Pressure 1: 112/80 Code: 8480-6 BMI: 31.5 Code: 69478-7 Heart Rate 1: 87 bpm Height: 5'8" SpO2: 97% Weight: 207 lbs 11/15/2015 Blood Pressure 1: 146/78 Code: 8480-6 BMI: 32.1 Code: 59794-9 Heart Rate 1: 96 bpm Height: 5'8" SpO2: 97% Weight: 211 lbs 06/28/2015 Blood Pressure 1: 132/64 Code: 8480-6 BMI: 29.5 Code: 38779-5 Heart Rate 1: 91 bpm Height: 5'8" SpO2: 98% Weight: 194 lbs 05/23/2014 Blood Pressure 1: 124/80 Code: 8480-6 BMI: 30.3 Code: 30027-7 Heart Rate 1: 68 bpm Height: 5'8" Weight: 199 lbs 04/24/2014 Blood Pressure 1: 132/72 Code: 8480-6 BMI: 30.7 Code: 84454-8 Heart Rate 1: 82 bpm Height: 5'8" SpO2: 98% Weight: 202 lbs 02/14/2013 Blood Pressure 1: 122/80 Code: 8480-6 BMI: 28.6 Code: 94591-4 Heart Rate 1: 84 bpm Height: 5'8" Respiratory Rate: 16 bpm Weight: 188 lbs 02/16/2012 Blood Pressure 1: 104/66 Code: 8480-6 BMI: 28.5 Code: 73800-6 Heart Rate 1: 76 bpm Height: 5'7" Weight: 182 lbs 01/05/2012 Blood Pressure 1: 100/64 Code: 8480-6 BMI: 28.7 Code: 56401-9 Heart Rate 1: 78 bpm Height: 5'7" Respiratory Rate: 16 bpm Weight: 183 lbs 11/13/2011 Blood Pressure 1: 116/78 Code: 8480-6 Heart Rate 1: 84 bpm Respiratory Rate: 16 bpm SpO2: 98% Temperature: 36.7 (C) / 98.1 (F) Weight: 181 lbs 09/29/2011 Blood Pressure 1: 118/82 Code: 8480-6 BMI: 36.8 Code: 62816-4 Heart Rate 1: 72 bpm Height: 4'10" [...] the day. 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 PATIENT, LEVEL III Diagnosis: Generalized anxiety disorder[ICD10: F41.1] Diagnosis: Other obesity due to excess calories[ICD10: E66.09] [facility] CPT-4: 94203 11/20/2016 ([id number]) Miscellaneous no charge Diagnosis: Other obesity due to excess calories[ICD10: E66.09] Maylin Jain MD, [facility] CPT-4: 82108 09/26/2016 ([id number]) 77075 EST. PATIENT, LEVEL IV Diagnosis: Generalized anxiety disorder[ICD10: F41.1] Diagnosis: Adjustment insomnia[ICD10: F51.02] Diagnosis: Other obesity due to excess calories[ICD10: E66.09] Unique Jain MD, [facility] CPT-4: 92859 08/25/2016 95718 EST. PATIENT, LEVEL IV Diagnosis: Dizziness and giddiness[ICD10: R42] Maylin Jain MD, [facility] CPT- 4: 12928 12/13/2015 [id number] EST. PATIENT, LEVEL IV Diagnosis: Dizziness and giddiness[ICD10: R42] Diagnosis: Other chest pain[ICD10: R07.89] Maylin Jain MD, [facility] CPT-4: 04350 11/15/2015 ([id number]) 53872 EST. PATIENT, LEVEL III Diagnosis: GENERALIZED ANXIETY DISEASE[ICD9: 300.02] Diagnosis: Migraines[ICD9: 346.90] Unique Jain MD, [facility] CPT-4: 35014 06/28/2015 ([id number]) 68508 EST. PATIENT, LEVEL III Diagnosis: Right ankle pain[ICD9: 719.47] Diagnosis: Right ankle sprain[ICD9: 845.00] Unique Jain MD, [facility] CPT- 4: 17995 05/23/2014 ([id number]) PREV VISIT EST AGE 40-64 Diagnosis: ROUTINE GYNE EXAM[ICD9: V72.31] Diagnosis: Laboratory exam ordered as part of routine general medical examination[ICD9: V72.62] Bianca Jain MD, [facility] CPT-4: 23800 04/24/2014 ([id number]) PREV VISIT EST AGE 40-64 Diagnosis: Well woman exam with routine gynecological exam[ICD9: V72.31] [facility] CPT-4: 55116 02/14/2013 25119 EST. PATIENT, LEVEL IV Diagnosis: Numbness in both legs[ICD9: 782.0] Diagnosis: Myalgia[ICD9: 729.1] Unique Jain MD, [facility] CPT-4: 84510 02/16/2012 ([id number]) 15505 EST. PATIENT, LEVEL IV Diagnosis: Acute maxillary sinusitis[ICD9: 461.0] Diagnosis: Cough[ICD9: 786.2] Diagnosis: Cerumen impaction[ICD9: 380.4] Bianca Jain MD, [facility] CPT-4: 51099 11/13/2011 ([id number]) OFFICE VISIT, NEW - LEVEL 3 Diagnosis: GENERALIZED ANXIETY DISEASE[ICD9: 300.02] Diagnosis: DEPRESSIVE DISORDER NEC[ICD9: 311] Diagnosis: Impacted cerumen[ICD9: 380.4] Diagnosis: HEARING LOSS[ICD9: 389.9] Bianca Jain MD, [facility] CPT-4: 07063 09/29/2011 Plan of Care Planned Activity Notes Codes Status Date Visit Plan: Mild intermittent swelling above clavicles - The pt is to use prn antiinflammatories to manage acute pain. The patient is to call the office if the pain is worsening or does not improve. 02/19/2017 Appointment: Maylin Chowdhury WPtel: [address] [place] [address] (15 min) Moderate 02/19/2017 Patient Education: Patient [...] PAP Pending 02/05/2017 Appointment: Bianca Jain WPtel: [facility] [place] [facility] [place] [facility] 01/22/2017 Visit Plan: Obesity - chronic issue with this patient. The pt has been counseled about diet changes, calorie restriction, and need to exercise. Pt will RTC in one month for weight check.Anxiety - refill anxiolytic 11/20/2016 App[facility]ment: [facility] [address] [facility] [facility] 11/20/2016 Patient Education: [...] in situational exposure. No change in current medications.Dvaaxumx-nvxwocuaef-ubankh ambien for prn use Obesity - chronic [...] in situational exposure. No change in current medications.Illbvzgv-wpdvsiehum-ycridh ambien for prn use Obesity - chronic issue with this patient. The pt has been counseled about diet changes, calorie restriction, and need to exercise. Pt will RTC in one month for weight check. 08/25/2016 App[facility]ment: [facility] [address] [facility] (15 min) Moderate 08/25/2016 Patient Education: Patient [...] pt consult with Dr. Shun Harrison at [facility].Migraine headaches - start on topamax. 04/24/2014 Appointment: Bianca Jain WPtel: [facility] [place] [facility] [place] [facility] Pap Only 04/24/2014 Patient Education: Patient Medication Summary Completed 04/24/2014 Care Plan: PAP Pending 04/24/2014 Appointment: Unique Nichole WPtel: [facility] [place] [facility] [phone] Other 05/31/2013 Patient Education: Patient Medication Summary [...] Summary Completed 02/14/2013 Appointment: Bianca Jain WPtel: [address] [place], [place] [id number] Pap Only 01/31/2013 Appointment: Unique Nichole WPtel: [address] [place], [place] [phone] Other 09/13/2012 Visit Plan: Numbness-bilateral lower fxv-nhieprxw-cimh to check labs including chem panel to evaluate electrolytes as well as blood sugar, cbc, and b12 level. Recommend patient start on a multivitamin daily and drink plenty of fluids. Will call patient with labs results. Instructed patient to call with any concerns or worsening symptoms. Patient verbalized understanding of plan. 02/16/2012 Appointment: Unique Nichole WPtel: [address] [place], [place] [phone] Other 02/16/2012 Patient Education: Patient Medication Summary [...] cancer. 01/05/2012 Appointment: Bianca Jain WPtel: [phone] Pap Only 01/05/2012 Patient Education: Patient [...] not improved. 11/13/2011 Appointment: Bianca Jain WPtel: [address] [place] [address] Other 11/13/2011 Patient Education: Patient Medication Summary [...] removal process. 09/29/2011 Appointment: Bianca Jain WPtel: [address] [place] [address] [place] New Patient 09/29/2011 Patient Education: Patient [...] situational exposure. No change in current medications. Xxwdbrst-wzxxtzgpmr-reoewh ambien for prn use Obesity - chronic [...] situational exposure. No change in current medications. Ermgvrgp-ukrqorusxk-rcccgh ambien for prn use Obesity - chronic [...] symptoms worsen, or with any other concerns. [facility] shun harrison and saritha quick [...] pt consult with Dr. Shun Harrison at [facility]. Migraine headaches - start on topamax. Check labs-cbc, cmp, b12 level. . Numbness-bilateral lower kaw-ytcbgfqc-dpxy to check labs including chem panel to [...]
--- OUTSIDE RECORDS SUMMARY | 2019-03-03 06:35 | XMS REPORT | CCD ---
Author Author [facility]ca J[facility] Organization [facility] Address [address] [place] [address] Phone Care Team Providers Care Retouching Operator Name Role Phone Bianca Jain PP Unavailable CCM Unavailable Summary Purpose Interface Exchange Insurance Providers Payer name Policy type / Coverage type Covered democrat ID Effective Begin Date Effective End Date [facility] [email or web address] [id number] Unknown Family history Brother Diagnosis Age At [...] Effective Dates Employment Unknown Currently employed [id number] Registration 11/20/2016 Marital status Unknown 01/05/[address]: 604412739 Never smoker 09/29/[address]: 744674 Currently drinks alcohol 3 weekly 09/29/2011 Has the patient ever used illegal drugs? Unknown Has never used illegal drugs 09/29/2011 Allergies, Adverse Reactions, Alerts Allergies, Adverse Reactions, Alerts data not found Past Medical History Illness Codes Condition Status Onset Date Resolved Date Encounter for gynecological examination (general) (routine) without [...] Codes Effective Dates Condition Status Encounter for gynecological examination (general) (routine) without [...] Fill Instructions topiramate 25 mg tablet RxNorm: 178205 TAKE ONE TABLET BY MOUTH TWICE DAILY 03/20/2017 06/17/2017 Active Flagyl 500 mg tablet RxNorm: 635135 1 Tablet(s) PO TID do not drink alcohol when taking this medication 02/05/2017 02/09/2017 Inactive Ambien 10 mg tablet RxNorm: 395849 1 Tablet(s) PO QHS as needed insomnia 01/23/2017 04/22/2017 Active Xanax 0.25 mg tablet RxNorm: 901627 TAKE ONE TABLET BY MOUTH EVERY 8 HOURS NEEDED FOR ANXIETY 01/23/2017 04/22/2017 Active Xanax 0.25 mg tablet RxNorm: 941236 1 Tablet(s) PO TAKE ONE TABLET BY MOUTH EVERY 8 HOURS NEEDED FOR ANXIETY 11/28/2016 01/25/2017 Inactive Lexapro 10 mg tablet RxNorm: 753505 1 Tablet(s) PO QPM 11/20/2016 04/18/2017 Active topiramate 25 mg tablet RxNorm: 124172 1 Tablet(s) PO BID start one pill at hs, if migraines not improving, then increase to bid 11/20/2016 01/18/2017 Inactive Ambien 10 mg tablet RxNorm: 218831 1 Tablet(s) PO QHS as needed TAKE ONE TABLET BY MOUTH AT BEDTIME NEEDED FOR INSOMNIA 10/31/2016 01/27/2017 Inactive acyclovir 400 mg tablet RxNorm: 820639 1 Tablet(s) PO TID 10/01/2016 10/05/2016 Inactive acyclovir 400 mg tablet RxNorm: 844498 1 Tablet(s) PO TID 10/01/2016 09/30/2016 Inactive phentermine 37.5 mg tablet RxNorm: 750394 1 Tablet(s) PO daily 09/26/2016 02/04/2017 Inactive Xanax 0.25 mg tablet RxNorm: 374180 Tablet(s) TAKE ONE TABLET BY MOUTH EVERY 8 HOURS NEEDED FOR ANXIETY 08/25/2016 10/22/2016 Inactive Ambien 10 mg tablet RxNorm: 758316 1 Tablet(s) PO daily as needed TAKE ONE TABLET BY MOUTH AT BEDTIME NEEDED FOR INSOMNIA 08/25/2016 11/19/2016 Inactive phentermine 37.5 mg tablet RxNorm: 084315 1 Tablet(s) PO daily 08/25/2016 09/25/2016 Inactive topiramate 25 mg tablet RxNorm: 899480 TAKE ONE TABLET BY MOUTH TWICE DAILY 07/09/2016 08/24/2016 Inactive Xanax 0.25 mg tablet RxNorm: 061441 Tablet(s) TAKE ONE TABLET BY MOUTH EVERY 8 HOURS NEEDED FOR ANXIETY 04/28/2016 06/25/2016 Inactive Ambien 10 mg tablet RxNorm: 446246 1 Tablet(s) PO daily as needed TAKE ONE TABLET BY MOUTH AT BEDTIME NEEDED FOR INSOMNIA 04/28/2016 06/24/2016 Inactive topiramate 25 mg tablet RxNorm: 901591 1 Tablet(s) PO BID 02/20/2016 06/18/2016 Inactive Xanax 0.25 mg tablet RxNorm: 046306 Tablet(s) TAKE ONE TABLET BY MOUTH EVERY 8 HOURS NEEDED FOR ANXIETY 01/03/2016 03/31/2016 Inactive (Response to an electronic controlled substance refill request - RxReferenceNumber: [id number]) Ambien 10 mg tablet RxNorm: 230725 1 Tablet(s) PO daily as needed TAKE ONE TABLET BY MOUTH AT BEDTIME NEEDED FOR INSOMNIA 01/03/2016 03/31/2016 Inactive (Response to an electronic controlled substance refill request - RxReferenceNumber: [id number]) meclizine 25 mg tablet RxNorm: 179135 1 Tablet(s) PO QID 12/13/2015 01/11/2016 Inactive Xanax 0.25 mg tablet RxNorm: 354343 Tablet(s) TAKE ONE TABLET BY MOUTH EVERY 8 HOURS NEEDED FOR ANXIETY 11/23/2015 12/21/2015 Inactive (Response to an electronic controlled substance refill request - RxReferenceNumber: [id number]) topiramate 25 mg tablet RxNorm: 516144 1 Tablet(s) PO BID 11/02/2015 12/12/2015 Inactive pt needs to make an appt Ambien 10 mg tablet RxNorm: 101931 1 Tablet(s) PO daily as needed TAKE ONE TABLET BY MOUTH AT BEDTIME NEEDED FOR INSOMNIA 10/30/2015 11/19/2016 Inactive (Response to an electronic controlled substance refill request - RxReferenceNumber: [id number]) Xanax 0.25 mg tablet RxNorm: 626056 Tablet(s) TAKE ONE TABLET BY MOUTH EVERY 8 HOURS NEEDED FOR ANXIETY 09/20/2015 10/18/2015 Inactive (Response to an electronic controlled substance refill request - RxReferenceNumber: [id number]) Xanax 0.25 mg tablet RxNorm: 494155 Tablet(s) TAKE ONE TABLET BY MOUTH EVERY 8 HOURS NEEDED FOR ANXIETY 06/28/2015 08/25/2015 Inactive (Response to an electronic controlled substance refill request - RxReferenceNumber: [id number]) topiramate 25 mg tablet RxNorm: 612674 1 Tablet(s) PO BID 06/27/2015 10/24/2015 Inactive Ambien 10 mg tablet RxNorm: 325430 1 Tablet(s) PO daily as needed TAKE ONE TABLET BY MOUTH AT BEDTIME NEEDED FOR INSOMNIA 06/26/2015 09/23/2015 Inactive (Response to an electronic controlled substance refill request - RxReferenceNumber: [id number]) Xanax 0.25 mg tablet RxNorm: 063155 Tablet(s) TAKE ONE TABLET BY MOUTH EVERY 8 HOURS NEEDED FOR ANXIETY 04/04/2015 06/02/2015 Inactive (Response to an electronic controlled substance refill request - RxReferenceNumber: [id number]) Ambien 10 mg tablet RxNorm: 023558 1 Tablet(s) PO daily as needed TAKE ONE TABLET BY MOUTH AT BEDTIME NEEDED FOR INSOMNIA 02/16/2015 05/16/2015 Inactive (Response to an electronic controlled substance refill request - RxReferenceNumber: [id number]) Ambien 10 mg tablet RxNorm: 994585 TAKE ONE TABLET BY MOUTH AT BEDTIME NEEDED FOR INSOMNIA 01/11/2015 02/09/2015 Inactive (Response to an electronic controlled substance refill request - RxReferenceNumber: [id number]) Ambien 10 mg tablet RxNorm: 021934 1 Tablet(s) PO QHS as needed TAKE ONE TABLET BY MOUTH AT BEDTIME NEEDED 01/11/2015 01/11/2015 Inactive (Appended: Controlled substance eRx refill - RxReferenceNumber: [id number]) topiramate 25 mg tablet RxNorm: 223616 1 Tablet(s) PO BID 01/11/2015 05/10/2015 Inactive Xanax 0.25 mg tablet RxNorm: 626144 TAKE ONE TABLET BY MOUTH EVERY 8 HOURS NEEDED FOR ANXIETY 01/11/2015 02/09/2015 Inactive (Response to an electronic controlled substance refill request - RxReferenceNumber: [id number]) Xanax 0.25 mg tablet RxNorm: 067881 Tablet(s) TAKE ONE TABLET BY MOUTH EVERY 8 HOURS NEEDED FOR ANXIETY 01/11/2015 01/11/2015 Inactive (Response to an electronic controlled substance refill request - RxReferenceNumber: [id number]) Xanax 0.25 mg tablet RxNorm: 393928 Tablet(s) TAKE ONE TABLET BY MOUTH EVERY 8 HOURS NEEDED FOR ANXIETY 11/20/2014 12/17/2014 Inactive (Response to an electronic controlled substance refill request - RxReferenceNumber: [id number]) Xanax 0.25 mg tablet RxNorm: 374577 TAKE ONE TABLET BY MOUTH EVERY 8 HOURS NEEDED FOR ANXIETY 09/14/2014 10/13/2014 Inactive (Response to an electronic controlled substance refill request - RxReferenceNumber: [id number]) Xanax 0.25 mg tablet RxNorm: 270679 Tablet(s) PO TAKE ONE TABLET BY MOUTH EVERY 8 HOURS NEEDED FOR ANXIETY 09/12/2014 09/15/2014 Inactive (Appended: Controlled substance eRx refill - RxReferenceNumber: [id number]) Xanax 0.25 mg tablet RxNorm: 960265 TAKE ONE TABLET BY MOUTH EVERY 8 HOURS NEEDED FOR ANXIETY 07/31/2014 07/31/2014 Inactive (Response to an electronic controlled substance refill request - RxReferenceNumber: [id number]) Ambien 10 mg tablet RxNorm: 524712 TAKE ONE TABLET BY MOUTH AT BEDTIME NEEDED FOR INSOMNIA 07/31/2014 11/19/2016 Inactive (Response to an electronic controlled substance refill request - RxReferenceNumber: [id number]) Xanax 0.25 mg tablet RxNorm: 750964 TAKE ONE TABLET BY MOUTH EVERY 8 HOURS NEEDED FOR ANXIETY 07/31/2014 08/29/2014 Inactive (Response to an electronic controlled substance refill request - RxReferenceNumber: [id number]) metronidazole 500 mg tablet RxNorm: 989227 1 Tablet(s) PO TID 05/25/2014 05/31/2014 Inactive Diflucan 150 mg tablet RxNorm: 780886 1 Tablet(s) PO daily 05/25/2014 05/29/2014 Inactive topiramate 25 mg tablet RxNorm: 030727 1 Tablet(s) PO BID 04/24/2014 11/19/2014 Inactive Xanax 0.25 mg tablet RxNorm: 783126 Tablet(s) PO TAKE ONE TABLET BY MOUTH EVERY 8 HOURS NEEDED FOR ANXIETY 01/17/2014 07/31/2014 Inactive (Appended: Controlled substance eRx refill - RxReferenceNumber: [id number]) Xanax 0.25 mg tablet RxNorm: 225989 Tablet(s) PO TAKE ONE TABLET BY MOUTH EVERY 8 HOURS NEEDED FOR ANXIETY 01/16/2014 01/17/2014 Inactive (Appended: Controlled substance eRx refill - RxReferenceNumber: [id number]) Xanax 0.25 mg tablet RxNorm: 850945 Tablet(s) PO TAKE ONE TABLET BY MOUTH EVERY 8 HOURS NEEDED FOR ANXIETY 01/13/2014 09/11/2014 Inactive (Appended: Controlled substance eRx refill - RxReferenceNumber: [id number]) Xanax 0.25 mg tablet RxNorm: 471501 Tablet(s) PO TAKE ONE TABLET BY MOUTH EVERY 8 HOURS NEEDED FOR ANXIETY 11/21/2013 01/16/2014 Inactive (Appended: Controlled substance eRx refill - RxReferenceNumber: [id number]) Xanax 0.25 mg tablet RxNorm: 899412 Tablet(s) PO TAKE ONE TABLET BY MOUTH EVERY 8 HOURS NEEDED FOR ANXIETY 11/18/2013 01/15/2014 Inactive (Appended: Controlled substance eRx refill - RxReferenceNumber: [id number]) Ambien 10 mg tablet RxNorm: 868460 Tablet(s) PO TAKE ONE TABLET BY MOUTH EVERY DAY AT BEDTIME NEEDED 08/31/2013 07/31/2014 Inactive (Appended: Controlled substance eRx refill - RxReferenceNumber: [id number]) Ambien 10 mg tablet RxNorm: 109247 Tablet(s) PO TAKE ONE TABLET BY MOUTH EVERY DAY AT BEDTIME NEEDED 08/31/2013 08/30/2013 Inactive (Appended: Controlled substance eRx refill - RxReferenceNumber: [id number]) Xanax 0.25 mg tablet RxNorm: 731144 Tablet(s) PO TAKE ONE TABLET BY MOUTH EVERY 8 HOURS NEEDED FOR ANXIETY 07/21/2013 11/21/2013 Inactive (Appended: Controlled substance eRx refill - RxReferenceNumber: [id number]) Xanax 0.25 mg tablet RxNorm: 276439 Tablet(s) PO TAKE ONE TABLET BY MOUTH EVERY 8 HOURS NEEDED FOR ANXIETY 07/19/2013 07/21/2013 Inactive (Appended: Controlled substance eRx refill - RxReferenceNumber: [id number]) omeprazole 20 mg capsule,delayed release RxNorm: 675920 Capsule(s) PO TAKE ONE CAPSULE BY MOUTH EVERY DAY 05/23/2013 04/23/2014 Inactive Flagyl 500 mg tablet RxNorm: 352746 1 Tablet(s) PO BID 02/21/2013 02/20/2013 Inactive Flagyl 500 mg tablet RxNorm: 161143 1 Tablet(s) PO BID 02/21/2013 02/27/2013 Inactive fluconazole 150 mg tablet RxNorm: 501198 1 Tablet(s) PO PRN one pill as needed for yeast infection symptoms 02/14/2013 04/23/2014 Inactive Xanax 0.25 mg tablet RxNorm: 722908 Tablet(s) PO TAKE ONE TABLET BY MOUTH EVERY 8 HOURS NEEDED FOR ANXIETY 02/03/2013 11/20/2013 Inactive (Appended: Controlled substance eRx refill - RxReferenceNumber: [id number]) Ambien 10 mg tablet RxNorm: 444052 Tablet(s) PO TAKE ONE TABLET BY MOUTH AT BEDTIME NEEDED 02/03/2013 08/31/2013 Inactive (Appended: Controlled substance eRx refill - RxReferenceNumber: [id number]) Ambien 10 mg tablet RxNorm: 126108 Tablet(s) PO TAKE ONE TABLET BY MOUTH AT BEDTIME NEEDED 02/03/2013 01/10/2015 Inactive (Appended: Controlled substance eRx refill - RxReferenceNumber: [id number]) Xanax 0.25 mg tablet RxNorm: 197478 Tablet(s) PO 02/03/2013 07/20/2013 Inactive TAKE ONE TABLET BY MOUTH EVERY 8 HOURS NEEDED FOR ANXIETY (Appended: Controlled substance eRx refill - RxReferenceNumber: [id number]) Xanax 0.25 mg tablet RxNorm: 099558 Tablet(s) PO TAKE ONE TABLET BY MOUTH EVERY 8 HOURS NEEDED FOR ANXIETY 12/08/2012 02/03/2013 Inactive (Appended: Controlled substance eRx refill - RxReferenceNumber: [id number]) Ambien 10 mg tablet RxNorm: 206836 Tablet(s) PO TAKE ONE TABLET BY MOUTH AT BEDTIME NEEDED 12/08/2012 02/02/2013 Inactive (Appended: Controlled substance eRx refill - RxReferenceNumber: [id number]) Xanax 0.25 mg tablet RxNorm: 266820 Tablet(s) PO TAKE ONE TABLET BY MOUTH EVERY 8 HOURS NEEDED FOR ANXIETY 12/08/2012 12/07/2012 Inactive (Appended: Controlled substance eRx refill - RxReferenceNumber: [id number]) Ambien 10 mg tablet RxNorm: 526023 Tablet(s) PO TAKE ONE TABLET BY MOUTH AT BEDTIME NEEDED 12/08/2012 02/03/2013 Inactive (Appended: Controlled substance eRx refill - RxReferenceNumber: [id number]) Ambien 10 mg tablet RxNorm: 784920 Tablet(s) PO 08/27/2012 12/08/2012 Inactive TAKE ONE TABLET BY MOUTH AT BEDTIME NEEDED (Appended: Controlled substance eRx refill - RxReferenceNumber: [id number]) Xanax 0.25 mg tablet RxNorm: 713906 Tablet(s) PO 08/24/2012 02/02/2013 Inactive TAKE ONE TABLET BY MOUTH EVERY 8 HOURS NEEDED FOR ANXIETY (Appended: Controlled substance eRx refill - RxReferenceNumber: [id number]) Ambien 10 mg tablet RxNorm: 771959 Tablet(s) PO 08/24/2012 08/27/2012 Inactive TAKE ONE TABLET BY MOUTH AT BEDTIME NEEDED (Appended: Controlled substance eRx refill - RxReferenceNumber: [id number]) Xanax 0.25 mg tablet RxNorm: 165680 Tablet(s) PO 08/24/2012 12/08/2012 Inactive TAKE ONE TABLET BY MOUTH EVERY 8 HOURS NEEDED FOR ANXIETY (Appended: Controlled substance eRx refill - RxReferenceNumber: [id number]) Xanax 0.25 mg tablet RxNorm: 807693 1 Tablet(s) PO Q8 PRN 07/09/2012 08/24/2012 Inactive omeprazole 20 mg capsule,delayed release RxNorm: 447967 1 Capsule(s) PO daily 05/19/2012 12/14/2012 Inactive Ambien 10 mg tablet RxNorm: 662643 1 Tablet(s) PO QHS 05/19/2012 08/24/2012 Inactive Xanax 0.25 mg tablet RxNorm: 890378 1 Tablet(s) PO Q8 PRN 03/16/2012 06/13/2012 Inactive Diflucan 150 mg Tab RxNorm: 192453 1 Tablet(s) PO daily 01/05/2012 01/14/2012 Inactive Ambien 10 mg tablet RxNorm: 681729 1 Tablet(s) PO QHS 01/02/2012 04/30/2012 Inactive Ambien 10 mg Tab RxNorm: 084720 1 Tablet(s) PO QHS 12/24/2011 01/01/2012 Inactive Rocephin 500 mg Solution for Injection RxNorm: 582699 1 Milliliter(s) Inj 11/13/2011 11/13/2011 Inactive omeprazole 20 mg capsule,delayed release RxNorm: 455529 1 Capsule(s) PO daily 10/07/2011 05/18/2012 Inactive omeprazole 20 mg Cap, Delayed Release RxNorm: 320855 1 Capsule(s) PO daily 10/07/2011 04/03/2012 Inactive Ambien 5 mg Tab RxNorm: 892327 1 Tablet(s) PO QHS 1 tab q hs prn insomnia 10/07/2011 12/23/2011 Inactive Xanax 0.25 mg Tab RxNorm: 228957 1 Tablet(s) PO Q8 PRN 09/29/2011 03/15/2012 Inactive Medication Administered Medication Codes Instructions Start Date Status Rocephin 500 mg Solution for Injection RxNorm: 531148 1Milliliter 11/13/2011 No longer Active Immunizations Vaccine Codes Date Status Influenza CVX: 141 07/12/2016 completed Assessments Condition Codes Effective Dates Encounter for gynecological examination (general) (routine) without [...] Visit Reason For Visit Effective Dates Notes well woman exam (40-65 years) 02/05/2017 well [...] Item Item Code Result Date GC/CHL PRB 9437518 CHLM PROBE NEG 04/26/2014 GC/CHL PRB 5668376 GC PROBE NEG 04/26/2014 TSH 4985778 TSH 2.977 uIU/ML 02/16/2013 GC/CHL PRB 7583009 SOURCE KIMBERLYN UNKNOWN 02/15/2013 GC/CHL PRB 9428931 CHLM PROBE NEG 02/15/2013 GC/CHL PRB 0889994 GC PROBE NEG 02/15/2013 CHEM 14 1987503 AST 12 U/L 02/15/2013 CHEM 14 0569770 ALT 16 IU/L 02/15/2013 CHEM 14 9030251 BUN 13 MG/DL 02/15/2013 CHEM 14 1786683 ALBUMIN 4.6 GM/DL 02/15/2013 CHEM 14 8701931 CHLORIDE 104 MMOL/L 02/15/2013 CHEM 14 4739739 BILI TOT 0.5 MG/DL 02/15/2013 CHEM 14 8042064 ALK PHOS 55 U/L 02/15/2013 CHEM 14 3527021 SODIUM 137 MMOL/L 02/15/2013 CHEM 14 1149880 CREATININE 0.79 MG/DL 02/15/2013 CHEM 14 4563077 CALCIUM 9.3 MG/DL 02/15/2013 CHEM 14 7140561 POTASSIUM 4.0 MMOL/L 02/15/2013 CHEM 14 3839736 PROT TOT 6.9 GM/DL 02/15/2013 CHEM 14 2243600 GLUCOSE 99 MG/DL 02/15/2013 CHEM 14 5199218 BICARB 29 MMOL/L 02/15/2013 CHEM 14 8895581 ANION GAP 4 MEQ/L 02/15/2013 GFR CALC 2667503 GFR AA >60 ML/MIN 02/15/2013 GFR CALC 5080388 GFR NON-AA >60 ML/MIN 02/15/2013 LIPID GRP HDL TEST 38 MG/DL 02/15/2013 LIPID GRP TRIG 126 MG/DL 02/15/2013 LIPID GRP TEST LDL 112 MG/DL 02/15/2013 LIPID GRP CHOL 175 MG/DL 02/15/2013 LIPID GRP RCHOL/HDL 4.61 RATIO 02/15/2013 CBC 9286740 WBC 5.8 10e9/L 02/15/2013 CBC 4042345 RBC 4.51 10e12/L 02/15/2013 CBC 1449745 HGB 13.8 g/dL 02/15/2013 CBC 2301215 HCT DET 39.0 % 02/15/2013 CBC 1096920 MCV 86.5 fL 02/15/2013 CBC 3410097 MCH 30.6 pg 02/15/2013 CBC 0392695 MCHC 35.4 g/dL 02/15/2013 CBC 0569128 PLT 284 10e9/L 02/15/2013 CBC 7532373 MPV 10.3 fL 02/15/2013 CBC 8613783 BLANQUITA % 62.9 % 02/15/2013 CBC 5004089 LY % 26.8 % 02/15/2013 CBC 7134671 MON % 9.1 % 02/15/2013 CBC 4361257 EOS % 1.2 % 02/15/2013 CBC 9243247 BASO % 0.0 % 02/15/2013 CBC 5235049 RDW 14.4 % 02/15/2013 CBC 1168927 ABS BLANQUITA 3.65 10e9/L 02/15/2013 CBC 1585868 ABS LYMPH 1.55 10e9/L 02/15/2013 CBC 7953938 ABS MONO 0.53 10e9/L 02/15/2013 CBC 7676105 ABS EOS 0.07 10e9/L 02/15/2013 CBC 6124505 ABS BASO 0.00 10e9/L 02/15/2013 CBC 0186008 RDW-SD 44.0 fL 02/15/2013 Review of Systems System Result Effective Dates Cardiovascular No chest pain/pressure 02/05/2017 Cardiovascular No [...] Result Effective Dates Notes Full Exam - Genitourinary/Female Constitutional general appearance [...] decrescendo 11/13/2011 None Full Exam - General 1995 Cardiovascular auscultation of heart Systolic murmur grade: III/ 11/13/2011 None Full Exam - General 1995 Cardiovascular extremities Overall: no clubbing 11/13/2011 None Full Exam - General 1995 Respiratory auscultation Overall: breath sounds clear bilaterally 11/13/2011 None Full Exam - General 1995 Respiratory respiratory effort/rhythm Overall: normal rate 11/13/2011 None Full Exam - General 1995 Respiratory respiratory effort/rhythm Overall: no retractions 11/13/2011 None Full Exam - General 1995 Ears/Nose/Throat otoscopic exam External auditory canal: complete cerumen impaction 11/13/2011 None Full Exam - General 1995 Psychiatric orientation/consciousness Overall: oriented to person, place and time 11/13/2011 None Full Exam - General 1995 Psychiatric mood and affect Overall: normal mood [...] General 1995 Constitutional general appearance Overall: well nourished 11/13/2011 None Full Exam - General 1995 Constitutional general appearance Overall: well developed 11/13/2011 None Full Exam - General 1995 Constitutional general appearance Overall: in no acute distress 11/13/2011 None Full Exam - General 1994 Eyes pupils and irises Overall: pupils equal, round, reactive to light and accomodation 11/13/2011 None Full Exam - General 1994 Lymphatic neck nodes Overall: shotty lymphadenopathy 11/13/2011 None Full Exam - General 1995 Constitutional general appearance Overall: well nourished 09/29/2011 None Full Exam - General 1995 Constitutional general appearance Overall: well developed 09/29/2011 [...] PROBE (CHYLMD TRACH DNA AMP PROBE) CPT-4: 26418Edmkhis 04/24/2014 GC PROBE (N.GONORRHOEAE DNA AMP PROB) CPT-4: 97221Joywucd 04/24/2014 ROUTINE VENIPUNCTURE CPT-4: 59826Blogmeq 02/15/2013 PREV VISIT EST AGE 40-64 CPT-4: 89940Zfxhlhh 01/05/2012 ROCEPHIN, PER 250 MG CPT-4: M4253Kyccmoj 11/13/2011 THER/PROPH/DIAG INJ SC/IM CPT-4: 95911Vsacsvi 11/13/2011 REMOVE IMPACTED EAR WAX UNI CPT-4: 91487Ekjpcgf 11/13/2011 Vital Signs Date Vital 02/05/2017 Blood Pressure 1: 124/84 Code: 8480-6 BMI: 29.3 Code: 09899-3 Heart Rate 1: 98 bpm Height: 5'8" SpO2: 98% Weight: 193 lbs 11/20/2016 Blood Pressure 1: 130/86 Code: 8480-6 BMI: 30.0 Code: 19938-7 Heart Rate 1: 90 bpm Height: 5'8" SpO2: 99% Weight: 197 lbs 09/26/2016 Blood Pressure 1: 124/84 Code: 8480-6 Heart Rate 1: 74 bpm SpO2: 97% Weight: 203 lbs 08/25/2016 Blood Pressure 1: 124/86 Code: 8480-6 BMI: 31.0 Code: 08713-8 Heart Rate 1: 90 bpm Height: 5'8" SpO2: 95% Weight: 204 lbs 12/13/2015 Blood Pressure 1: 112/80 Code: 8480-6 BMI: 31.5 Code: 23931-3 Heart Rate 1: 87 bpm Height: 5'8" SpO2: 97% Weight: 207 lbs 11/15/2015 Blood Pressure 1: 146/78 Code: 8480-6 BMI: 32.1 Code: 80040-9 Heart Rate 1: 96 bpm Height: 5'8" SpO2: 97% Weight: 211 lbs 06/28/2015 Blood Pressure 1: 132/64 Code: 8480-6 BMI: 29.5 Code: 10800-1 Heart Rate 1: 91 bpm Height: 5'8" SpO2: 98% Weight: 194 lbs 05/23/2014 Blood Pressure 1: 124/80 Code: 8480-6 BMI: 30.3 Code: 07949-6 Heart Rate 1: 68 bpm Height: 5'8" Weight: 199 lbs 04/24/2014 Blood Pressure 1: 132/72 Code: 8480-6 BMI: 30.7 Code: 65332-5 Heart Rate 1: 82 bpm Height: 5'8" SpO2: 98% Weight: 202 lbs 02/14/2013 Blood Pressure 1: 122/80 Code: 8480-6 BMI: 28.6 Code: 47666-2 Heart Rate 1: 84 bpm Height: 5'8" Respiratory Rate: 16 bpm Weight: 188 lbs 02/16/2012 Blood Pressure 1: 104/66 Code: 8480-6 BMI: 28.5 Code: 01254-9 Heart Rate 1: 76 bpm Height: 5'7" Weight: 182 lbs 01/05/2012 Blood Pressure 1: 100/64 Code: 8480-6 BMI: 28.7 Code: 26326-3 Heart Rate 1: 78 bpm Height: 5'7" Respiratory Rate: 16 bpm Weight: 183 lbs 11/13/2011 Blood Pressure 1: 116/78 Code: 8480-6 Heart Rate 1: 84 bpm Respiratory Rate: 16 bpm SpO2: 98% Temperature: 36.7 (C) / 98.1 (F) Weight: 181 lbs 09/29/2011 Blood Pressure 1: 118/82 Code: 8480-6 BMI: 36.8 Code: 65273-3 Heart Rate 1: 72 bpm Height: 4'10" Respiratory Rate: 16 bpm Weight: 176 lbs Functional Status No Functional Status data History of Present Illness Symptom Name Status Result Effective Date Notes well woman exam (40-65 years) Menstrual History [...] the day. 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 PATIENT, LEVEL III Diagnosis: Generalized anxiety disorder[ICD10: F41.1] Diagnosis: Other obesity due to excess calories[ICD10: E66.09] [facility] CPT-4: 74237 11/20/2016 ([id number]) Miscellaneous no charge Diagnosis: Other obesity due to excess calories[ICD10: E66.09] [facility] CPT-4: 06568 09/26/2016 ([id number]) 39488 EST. PATIENT, LEVEL IV Diagnosis: Generalized anxiety disorder[ICD10: F41.1] Diagnosis: Adjustment insomnia[ICD10: F51.02] Diagnosis: Other obesity due to excess calories[ICD10: E66.09] Unique Jain MD, [facility] CPT-4: 27354 08/25/2016 [id number] EST. PATIENT, LEVEL IV Diagnosis: Dizziness and giddiness[ICD10: R42] [facility] CPT- 4: 95706 12/13/2015 [id number] EST. PATIENT, LEVEL IV Diagnosis: Dizziness and giddiness[ICD10: R42] Diagnosis: Other chest pain[ICD10: R07.89] Maylin Jain MD, [facility] CPT-4: 17397 11/15/2015 ([id number]) 29548 EST. PATIENT, LEVEL III Diagnosis: GENERALIZED ANXIETY DISEASE[ICD9: 300.02] Diagnosis: Migraines[ICD9: 346.90] Unique Jain MD, [facility] CPT-4: 46861 06/28/2015 ([id number]) 90152 EST. PATIENT, LEVEL III Diagnosis: Right ankle pain[ICD9: 719.47] Diagnosis: Right ankle sprain[ICD9: 845.00] Unique Jain MD, [facility] CPT- 4: 99098 05/23/2014 ([id number]) PREV VISIT EST AGE 40-64 Diagnosis: ROUTINE GYNE EXAM[ICD9: V72.31] Diagnosis: Laboratory exam ordered as part of routine general medical examination[ICD9: V72.62] Bianca Jain MD, [facility] CPT-4: 63781 04/24/2014 ([id number]) PREV VISIT EST AGE 40-64 Diagnosis: Well woman exam with routine gynecological exam[ICD9: V72.31] [facility] CPT-4: 08777 02/14/2013 [id number] EST. PATIENT, LEVEL IV Diagnosis: Numbness in both legs[ICD9: 782.0] Diagnosis: Myalgia[ICD9: 729.1] [facility] CPT-4: 12988 02/16/2012 ([id number]) 72332 EST. PATIENT, LEVEL IV Diagnosis: Acute maxillary sinusitis[ICD9: 461.0] Diagnosis: Cough[ICD9: 786.2] Diagnosis: Cerumen impaction[ICD9: 380.4] [facility] CPT-4: 47317 11/13/2011 ([id number]) OFFICE VISIT, NEW - LEVEL 3 Diagnosis: GENERALIZED ANXIETY DISEASE[ICD9: 300.02] Diagnosis: DEPRESSIVE DISORDER NEC[ICD9: 311] Diagnosis: Impacted cerumen[ICD9: 380.4] Diagnosis: HEARING LOSS[ICD9: 389.9] [facility] CPT-4: 75416 09/29/2011 Plan of Care Planned Activity Notes Codes Status Date Appointment: Maylin Chowdhury WPtel: [address] [place] [address] (15 min) Moderate 02/19/2017 Visit Plan: Well Adult Female - [...] PAP Pending 02/05/2017 Appointment: Bianca Jain WPtel: [address] [place] [address] [facility] 01/22/2017 Visit Plan: Obesity - chronic issue with this patient. The pt has been counseled about diet changes, calorie restriction, and need to exercise. Pt will RTC in one month for weight check.Anxiety - refill anxiolytic 11/20/2016 Appointment: Bianca Jain WPtel: [facility] [facility] 11/20/2016 Patient Education: Patient Medication [...] in situational exposure. No change in current medications.Thjevdlw-selziiusgt-gkjdof ambien for prn use Obesity - chronic [...] in situational exposure. No change in current medications.Nqjmfnuq-rvycnfwniz-pvjskp ambien for prn use Obesity - chronic issue with this patient. The pt has been counseled about diet changes, calorie restriction, and need to exercise. Pt will RTC in one month for weight check. 08/25/2016 Appointment: Unique Nichole WPtel: [address] [place], [place] [phone] (15 min) Moderate 08/25/2016 Patient Education: Patient [...] pt consult with Dr. Shun Harrison at [facility].Migraine headaches - start on topamax. 04/24/2014 Appointment: Bianca Jain WPtel[facility] [place] Pap Only 04/24/2014 Patient Education: Patient Medication Summary Completed 04/24/2014 Care Plan: PAP Pending 04/24/2014 Appointment: [id number] [phone] [place] Other 05/31/2013 Patient Education: Patient Medication [...] Summary Completed 02/14/2013 Appointment: Bianca Jain WPtel: [address] [place], [place] [id number] [place] Pap Only 01/31/2013 Appointment: Unique Nichole WPtel: [phone] Other 09/13/2012 Visit Plan: Numbness-bilateral lower ryg-plaijpcj-koqz to check labs including chem panel to evaluate electrolytes as well as blood sugar, cbc, and b12 level. Recommend patient start on a multivitamin daily and drink plenty of fluids. Will call patient with labs results. Instructed patient to call with any concerns or worsening symptoms. Patient verbalized understanding of plan. 02/16/2012 Appointment: Unique Nichole WPtel: [phone] [place] Other 02/16/2012 Patient Education: Patient Medication Summary [...] skin cancer. 01/05/2012 Appointment: Bianca Jain WPtel: [facility] [place] Pap Only 01/05/2012 Patient Education: Patient [...] not improved. 11/13/2011 Appointment: Bianca Jain WPtel: [address] [place] [address] Other 11/13/2011 Patient Education: Patient Medication Summary [...] removal process. 09/29/2011 Appointment: Bianca Jain WPtel: [address] [place] [address] New Patient 09/29/2011 Patient Education: Patient Medication [...] situational exposure. No change in current medications. Jbikylzp-yfssnloaua-zidair ambien for prn use Obesity - chronic [...] situational exposure. No change in current medications. Wjndnpuf-sedaaaysmd-ogtlsg ambien for prn use Obesity - chronic [...] symptoms worsen, or with any other concerns. [facility] shun harrison and saritha quick [...] pt consult with Dr. Shun Harrison at [facility]. Migraine headaches - start on topamax. Check labs-cbc, cmp, b12 level. . Numbness-bilateral lower jid-efqhvpki-xemp to check labs including chem panel to evaluate electrolytes as well as blood sugar, cbc, and b12 level. Recommend patient start on a multivitamin daily and drink plenty of fluids. Will call patient with labs results. Instructed patient to call with any concerns or worsening symptoms. Patient verbalized understanding of plan. . Obesity - chronic issue with this patient. The pt has been counseled about diet changes, calorie restriction, and need to exercise. Pt will RTC in one month for weight check. Anxiety - refill anxiolytic
--- OUTSIDE RECORDS SUMMARY | 2019-03-03 06:39 | XMS REPORT | CCD ---
Author Author [facility] Organization [facility] Address [address] [place] [address] Phone Care Team Providers Care Tele Rn Name Role Phone Bianca Jain PP Unavailable CCM Unavailable Summary Purpose Interface Exchange Insurance Providers Payer name Policy type / Coverage type Covered republican ID Effective Begin Date Effective End Date [employer] [id number] 2018 Unknown Family history Brother Diagnosis Age [...] Effective Dates Employment Unknown Currently employed [employer] 11/15/2018 Marital status Unknown 01/05/[address]: 014581101 Never smoker 09/29/[address]: 404574 Currently drinks alcohol 3 weekly 09/29/2011 Has [...] Start Date Stop Date Status Fill Instructions amitriptyline 50 mg tablet RxNorm: 152881 1 Tablet(s) PO QHS 02/02/2019 05/02/2019 Active Xanax 0.5 mg tablet RxNorm: 946031 Tablet(s) TAKE ONE TABLET BY MOUTH EVERY 8 HOURS NEEDED FOR ANXIETY 02/02/2019 04/02/2019 Active Xanax 0.5 mg tablet RxNorm: 029253 1 Tablet(s) PO Q8 as needed anxiety 12/03/2018 01/30/2019 Inactive amitriptyline 50 mg tablet RxNorm: 894599 1 Tablet(s) PO QHS 12/01/2018 01/29/2019 Inactive dc ambien amitriptyline 25 mg tablet RxNorm: 706779 1 Tablet(s) PO QHS 11/15/2018 11/30/2018 Inactive dc ambien amitriptyline 25 mg tablet RxNorm: 253353 1 Tablet(s) PO QHS 11/15/2018 11/14/2018 Inactive dc ambien atorvastatin 20 mg tablet RxNorm: 886727 1 Tablet(s) PO daily 11/04/2018 03/03/2019 Active atorvastatin 20 mg tablet RxNorm: 079822 1 Tablet(s) PO daily 11/04/2018 11/03/2018 Inactive topiramate 25 mg tablet RxNorm: 094716 TAKE 1 TABLET BY MOUTH TWICE DAILY 10/26/2018 No Stop Date Active Ambien 10 mg tablet RxNorm: 437742 Tablet(s) TAKE ONE TABLET BY MOUTH AT BEDTIME NEEDED 10/26/2018 11/14/2018 Inactive Xanax 0.5 mg tablet RxNorm: 222301 1 Tablet(s) PO Q8 as needed anxiety 10/26/2018 11/23/2018 Inactive Xanax 0.5 mg tablet RxNorm: 059375 Tablet(s) TAKE ONE TABLET BY MOUTH EVERY 8 HOURS NEEDED FOR ANXIETY 08/27/2018 10/24/2018 Inactive Ambien 10 mg tablet RxNorm: 546653 Tablet(s) TAKE ONE TABLET BY MOUTH AT BEDTIME NEEDED 08/27/2018 11/14/2018 Inactive Ambien 10 mg tablet RxNorm: 086014 Tablet(s) TAKE ONE TABLET BY MOUTH AT BEDTIME NEEDED 07/29/2018 08/26/2018 Inactive Lexapro 10 mg tablet RxNorm: 785607 TAKE 1 TABLET BY MOUTH IN THE EVENING 07/27/2018 No Stop Date Active Xanax 0.5 mg tablet RxNorm: 527501 1 Tablet(s) PO Q8 as needed anxiety 06/18/2018 09/15/2018 Inactive Xanax 0.5 mg tablet RxNorm: 171719 Tablet(s) TAKE ONE TABLET BY MOUTH EVERY 8 HOURS NEEDED FOR ANXIETY 06/18/2018 08/15/2018 Inactive Ambien 10 mg tablet RxNorm: 319458 1 Tablet(s) PO HS PRN TAKE ONE TABLET BY MOUTH AT BEDTIME NEEDED 05/20/2018 10/25/2018 Inactive topiramate 25 mg tablet RxNorm: 426528 TAKE ONE TABLET BY MOUTH TWICE DAILY 04/21/2018 10/25/2018 Inactive Xanax 0.5 mg tablet RxNorm: 041013 1 Tablet(s) PO Q8 as needed anxiety 03/24/2018 06/17/2018 Inactive Ambien 10 mg tablet RxNorm: 264488 1 Tablet(s) PO HS PRN TAKE ONE TABLET BY MOUTH AT BEDTIME NEEDED 02/22/2018 05/19/2018 Inactive naproxen 500 mg tablet RxNorm: 875594 1 Tablet(s) PO BID 02/22/2018 02/26/2018 Inactive Ambien 10 mg tablet RxNorm: 959913 TAKE ONE TABLET BY MOUTH AT BEDTIME NEEDED 02/19/2018 07/28/2018 Inactive Dexilant 60 mg capsule, delayed release RxNorm: 752680 1 Capsule(s) PO daily 01/21/2018 No Stop Date Active Xanax 0.5 mg tablet RxNorm: 667529 Tablet(s) TAKE ONE TABLET BY MOUTH EVERY 8 HOURS NEEDED FOR ANXIETY 01/19/2018 03/17/2018 Inactive Lexapro 10 mg tablet RxNorm: 017736 TAKE ONE TABLET BY MOUTH IN THE EVENING 01/18/2018 07/26/2018 Inactive Xanax 0.5 mg tablet RxNorm: 087426 1 Tablet(s) PO Q8 PRN TAKE ONE TABLET BY MOUTH EVERY 8 HOURS NEEDED FOR ANXIETY 12/17/2017 01/14/2018 Inactive topiramate 25 mg tablet RxNorm: 967915 TAKE ONE TABLET BY MOUTH TWICE DAILY 10/13/2017 04/20/2018 Inactive K-Dur 10 mEq tablet,extended release RxNorm: 497086 1 Tablet(s) PO daily 09/11/2017 09/11/2017 Inactive potassium chloride ER 10 mEq tablet,extended release RxNorm: 479418 1 Tablet(s) PO daily 09/11/2017 09/10/2017 Inactive Lasix 20 mg tablet RxNorm: 099470 1 Tablet(s) PO daily for three days 09/11/2017 09/10/2017 Inactive potassium chloride ER 10 mEq tablet,extended release RxNorm: 232631 1 Tablet(s) PO daily 09/11/2017 09/13/2017 Inactive Lasix 20 mg tablet RxNorm: 1 Tablet(s) PO daily for three days 09/11/2017 09/13/2017 Inactive naproxen 500 mg tablet RxNorm: 313133 1 Tablet(s) PO BID 09/01/2017 09/05/2017 Inactive Ambien 10 mg tablet RxNorm: 979402 1 Tablet(s) PO HS PRN TAKE ONE TABLET BY MOUTH AT BEDTIME NEEDED 08/14/2017 02/22/2018 Inactive Xanax 0.5 mg tablet RxNorm: 026853 1 Tablet(s) PO Q8 PRN TAKE ONE TABLET BY MOUTH EVERY 8 HOURS NEEDED FOR ANXIETY 08/14/2017 01/18/2018 Inactive Lexapro 10 mg tablet RxNorm: 022826 TAKE ONE TABLET BY MOUTH IN THE EVENING 07/13/2017 01/08/2018 Inactive Xanax 0.5 mg tablet RxNorm: 376511 1 Tablet(s) PO Q8 PRN TAKE ONE TABLET BY MOUTH EVERY 8 HOURS NEEDED FOR ANXIETY 06/18/2017 07/16/2017 Inactive Xanax 0.25 mg tablet RxNorm: 011312 Tablet(s) TAKE ONE TABLET BY MOUTH EVERY 8 HOURS NEEDED FOR ANXIETY 06/17/2017 06/17/2017 Inactive Ambien 10 mg tablet RxNorm: 984167 1 Tablet(s) PO QHS as needed insomnia 06/17/2017 08/17/2017 Inactive topiramate 25 mg tablet RxNorm: 166939 TAKE ONE TABLET BY MOUTH TWICE DAILY 06/16/2017 10/12/2017 Inactive Lexapro 10 mg tablet RxNorm: 059777 TAKE ONE TABLET BY MOUTH IN THE EVENING 04/17/2017 07/12/2017 Inactive Ambien 10 mg tablet RxNorm: 836398 1 Tablet(s) PO QHS as needed insomnia 04/17/2017 01/18/2018 Inactive Xanax 0.25 mg tablet RxNorm: 033598 Tablet(s) TAKE ONE TABLET BY MOUTH EVERY 8 HOURS NEEDED FOR ANXIETY 04/17/2017 06/13/2017 Inactive topiramate 25 mg tablet RxNorm: 366822 TAKE ONE TABLET BY MOUTH TWICE DAILY 03/20/2017 06/15/2017 Inactive Flagyl 500 mg tablet RxNorm: 521107 1 Tablet(s) PO TID do not drink alcohol when taking this medication 02/05/2017 02/09/2017 Inactive Ambien 10 mg tablet RxNorm: 005957 1 Tablet(s) PO QHS as needed insomnia 01/23/2017 04/21/2017 Inactive Xanax 0.25 mg tablet RxNorm: 088812 TAKE ONE TABLET BY MOUTH EVERY 8 HOURS NEEDED FOR ANXIETY 01/23/2017 04/21/2017 Inactive Xanax 0.25 mg tablet RxNorm: 385732 1 Tablet(s) PO TAKE ONE TABLET BY MOUTH EVERY 8 HOURS NEEDED FOR ANXIETY 11/28/2016 01/18/2018 Inactive Lexapro 10 mg tablet RxNorm: 900814 1 Tablet(s) PO QPM 11/20/2016 04/16/2017 Inactive topiramate 25 mg tablet RxNorm: 752151 1 Tablet(s) PO BID start one pill at hs, if migraines not improving, then increase to bid 11/20/2016 01/18/2018 Inactive Ambien 10 mg tablet RxNorm: 966343 1 Tablet(s) PO QHS as needed TAKE ONE TABLET BY MOUTH AT BEDTIME NEEDED FOR INSOMNIA 10/31/2016 01/18/2018 Inactive acyclovir 400 mg tablet RxNorm: 068438 1 Tablet(s) PO TID 10/01/2016 10/05/2016 Inactive acyclovir 400 mg tablet RxNorm: 855328 1 Tablet(s) PO TID 10/01/2016 09/30/2016 Inactive phentermine 37.5 mg tablet RxNorm: 865081 1 Tablet(s) PO daily 09/26/2016 02/04/2017 Inactive Xanax 0.25 mg tablet RxNorm: 372781 Tablet(s) TAKE ONE TABLET BY MOUTH EVERY 8 HOURS NEEDED FOR ANXIETY 08/25/2016 01/18/2018 Inactive Ambien 10 mg tablet RxNorm: 010513 1 Tablet(s) PO daily as needed TAKE ONE TABLET BY MOUTH AT BEDTIME NEEDED FOR INSOMNIA 08/25/2016 11/19/2016 Inactive phentermine 37.5 mg tablet RxNorm: 558341 1 Tablet(s) PO daily 08/25/2016 09/25/2016 Inactive topiramate 25 mg tablet RxNorm: 018916 TAKE ONE TABLET BY MOUTH TWICE DAILY 07/09/2016 08/24/2016 Inactive Xanax 0.25 mg tablet RxNorm: 586272 Tablet(s) TAKE ONE TABLET BY MOUTH EVERY 8 HOURS NEEDED FOR ANXIETY 04/28/2016 06/25/2016 Inactive Ambien 10 mg tablet RxNorm: 829053 1 Tablet(s) PO daily as needed TAKE ONE TABLET BY MOUTH AT BEDTIME NEEDED FOR INSOMNIA 04/28/2016 06/24/2016 Inactive topiramate 25 mg tablet RxNorm: 005302 1 Tablet(s) PO BID 02/20/2016 06/18/2016 Inactive Ambien 10 mg tablet RxNorm: 532531 1 Tablet(s) PO daily as needed TAKE ONE TABLET BY MOUTH AT BEDTIME NEEDED FOR INSOMNIA 01/03/2016 03/31/2016 Inactive (Response to an electronic controlled substance refill request - RxReferenceNumber: [id number]) Xanax 0.25 mg tablet RxNorm: 875919 Tablet(s) TAKE ONE TABLET BY MOUTH EVERY 8 HOURS NEEDED FOR ANXIETY 01/03/2016 01/18/2018 Inactive (Response to an electronic controlled substance refill request - RxReferenceNumber: [id number]) meclizine 25 mg tablet RxNorm: 151576 1 Tablet(s) PO QID 12/13/2015 01/11/2016 Inactive Xanax 0.25 mg tablet RxNorm: 700593 Tablet(s) TAKE ONE TABLET BY MOUTH EVERY 8 HOURS NEEDED FOR ANXIETY 11/23/2015 01/18/2018 Inactive (Response to an electronic controlled substance refill request - RxReferenceNumber: [id number]) topiramate 25 mg tablet RxNorm: 505947 1 Tablet(s) PO BID 11/02/2015 12/12/2015 Inactive pt needs to make an appt Ambien 10 mg tablet RxNorm: 330995 1 Tablet(s) PO daily as needed TAKE ONE TABLET BY MOUTH AT BEDTIME NEEDED FOR INSOMNIA 10/30/2015 11/19/2016 Inactive (Response to an electronic controlled substance refill request - RxReferenceNumber: [id number]) Xanax 0.25 mg tablet RxNorm: 924962 Tablet(s) TAKE ONE TABLET BY MOUTH EVERY 8 HOURS NEEDED FOR ANXIETY 09/20/2015 10/18/2015 Inactive (Response to an electronic controlled substance refill request - RxReferenceNumber: [id number]) Xanax 0.25 mg tablet RxNorm: 832816 Tablet(s) TAKE ONE TABLET BY MOUTH EVERY 8 HOURS NEEDED FOR ANXIETY 06/28/2015 08/25/2015 Inactive (Response to an electronic controlled substance refill request - RxReferenceNumber: [id number]) topiramate 25 mg tablet RxNorm: 137622 1 Tablet(s) PO BID 06/27/2015 10/24/2015 Inactive Ambien 10 mg tablet RxNorm: 756693 1 Tablet(s) PO daily as needed TAKE ONE TABLET BY MOUTH AT BEDTIME NEEDED FOR INSOMNIA 06/26/2015 09/23/2015 Inactive (Response to an electronic controlled substance refill request - RxReferenceNumber: [id number]) Xanax 0.25 mg tablet RxNorm: 346930 Tablet(s) TAKE ONE TABLET BY MOUTH EVERY 8 HOURS NEEDED FOR ANXIETY 04/04/2015 06/02/2015 Inactive (Response to an electronic controlled substance refill request - RxReferenceNumber: [id number]) Ambien 10 mg tablet RxNorm: 243580 1 Tablet(s) PO daily as needed TAKE ONE TABLET BY MOUTH AT BEDTIME NEEDED FOR INSOMNIA 02/16/2015 05/16/2015 Inactive (Response to an electronic controlled substance refill request - RxReferenceNumber: [id number]) Ambien 10 mg tablet RxNorm: 957496 TAKE ONE TABLET BY MOUTH AT BEDTIME NEEDED FOR INSOMNIA 01/11/2015 02/09/2015 Inactive (Response to an electronic controlled substance refill request - RxReferenceNumber: [id number]) Ambien 10 mg tablet RxNorm: 250215 1 Tablet(s) PO QHS as needed TAKE ONE TABLET BY MOUTH AT BEDTIME NEEDED 01/11/2015 01/11/2015 Inactive (Appended: Controlled substance eRx refill - RxReferenceNumber: [id number]) topiramate 25 mg tablet RxNorm: 573903 1 Tablet(s) PO BID 01/11/2015 05/10/2015 Inactive Xanax 0.25 mg tablet RxNorm: 966945 TAKE ONE TABLET BY MOUTH EVERY 8 HOURS NEEDED FOR ANXIETY 01/11/2015 02/09/2015 Inactive (Response to an electronic controlled substance refill request - RxReferenceNumber: [id number]) Xanax 0.25 mg tablet RxNorm: 142766 Tablet(s) TAKE ONE TABLET BY MOUTH EVERY 8 HOURS NEEDED FOR ANXIETY 01/11/2015 01/11/2015 Inactive (Response to an electronic controlled substance refill request - RxReferenceNumber: [id number]) Xanax 0.25 mg tablet RxNorm: 720813 Tablet(s) TAKE ONE TABLET BY MOUTH EVERY 8 HOURS NEEDED FOR ANXIETY 11/20/2014 12/17/2014 Inactive (Response to an electronic controlled substance refill request - RxReferenceNumber: [id number]) Xanax 0.25 mg tablet RxNorm: 417757 TAKE ONE TABLET BY MOUTH EVERY 8 HOURS NEEDED FOR ANXIETY 09/14/2014 10/13/2014 Inactive (Response to an electronic controlled substance refill request - RxReferenceNumber: [id number]) Xanax 0.25 mg tablet RxNorm: 731980 Tablet(s) PO TAKE ONE TABLET BY MOUTH EVERY 8 HOURS NEEDED FOR ANXIETY 09/12/2014 09/15/2014 Inactive (Appended: Controlled substance eRx refill - RxReferenceNumber: [id number]) Xanax 0.25 mg tablet RxNorm: 153456 TAKE ONE TABLET BY MOUTH EVERY 8 HOURS NEEDED FOR ANXIETY 07/31/2014 07/31/2014 Inactive (Response to an electronic controlled substance refill request - RxReferenceNumber: [id number]) Ambien 10 mg tablet RxNorm: 070412 TAKE ONE TABLET BY MOUTH AT BEDTIME NEEDED FOR INSOMNIA 07/31/2014 11/19/2016 Inactive (Response to an electronic controlled substance refill request - RxReferenceNumber: [id number]) Xanax 0.25 mg tablet RxNorm: 830135 TAKE ONE TABLET BY MOUTH EVERY 8 HOURS NEEDED FOR ANXIETY 07/31/2014 08/29/2014 Inactive (Response to an electronic controlled substance refill request - RxReferenceNumber: [id number]) metronidazole 500 mg tablet RxNorm: 765414 1 Tablet(s) PO TID 05/25/2014 05/31/2014 Inactive Diflucan 150 mg tablet RxNorm: 070959 1 Tablet(s) PO daily 05/25/2014 05/29/2014 Inactive topiramate 25 mg tablet RxNorm: 987449 1 Tablet(s) PO BID 04/24/2014 11/19/2014 Inactive Xanax 0.25 mg tablet RxNorm: 245018 Tablet(s) PO TAKE ONE TABLET BY MOUTH EVERY 8 HOURS NEEDED FOR ANXIETY 01/17/2014 07/31/2014 Inactive (Appended: Controlled substance eRx refill - RxReferenceNumber: [id number]) Xanax 0.25 mg tablet RxNorm: 515776 Tablet(s) PO TAKE ONE TABLET BY MOUTH EVERY 8 HOURS NEEDED FOR ANXIETY 01/16/2014 01/17/2014 Inactive (Appended: Controlled substance eRx refill - RxReferenceNumber: [id number]) Xanax 0.25 mg tablet RxNorm: 996191 Tablet(s) PO TAKE ONE TABLET BY MOUTH EVERY 8 HOURS NEEDED FOR ANXIETY 01/13/2014 09/11/2014 Inactive (Appended: Controlled substance eRx refill - RxReferenceNumber: [id number]) Xanax 0.25 mg tablet RxNorm: 093362 Tablet(s) PO TAKE ONE TABLET BY MOUTH EVERY 8 HOURS NEEDED FOR ANXIETY 11/21/2013 01/16/2014 Inactive (Appended: Controlled substance eRx refill - RxReferenceNumber: [id number]) Xanax 0.25 mg tablet RxNorm: 235150 Tablet(s) PO TAKE ONE TABLET BY MOUTH EVERY 8 HOURS NEEDED FOR ANXIETY 11/18/2013 01/15/2014 Inactive (Appended: Controlled substance eRx refill - RxReferenceNumber: [id number]) Ambien 10 mg tablet RxNorm: 550770 Tablet(s) PO TAKE ONE TABLET BY MOUTH EVERY DAY AT BEDTIME NEEDED 08/31/2013 07/31/2014 Inactive (Appended: Controlled substance eRx refill - RxReferenceNumber: [id number]) Ambien 10 mg tablet RxNorm: 038432 Tablet(s) PO TAKE ONE TABLET BY MOUTH EVERY DAY AT BEDTIME NEEDED 08/31/2013 08/30/2013 Inactive (Appended: Controlled substance eRx refill - RxReferenceNumber: [id number]) Xanax 0.25 mg tablet RxNorm: 729523 Tablet(s) PO TAKE ONE TABLET BY MOUTH EVERY 8 HOURS NEEDED FOR ANXIETY 07/21/2013 11/21/2013 Inactive (Appended: Controlled substance eRx refill - RxReferenceNumber: [id number]) Xanax 0.25 mg tablet RxNorm: 979600 Tablet(s) PO TAKE ONE TABLET BY MOUTH EVERY 8 HOURS NEEDED FOR ANXIETY 07/19/2013 07/21/2013 Inactive (Appended: Controlled substance eRx refill - RxReferenceNumber: [id number]) omeprazole 20 mg capsule,delayed release RxNorm: 031445 Capsule(s) PO TAKE ONE CAPSULE BY MOUTH EVERY DAY 05/23/2013 04/23/2014 Inactive Flagyl 500 mg tablet RxNorm: 971745 1 Tablet(s) PO BID 02/21/2013 02/20/2013 Inactive Flagyl 500 mg tablet RxNorm: 575301 1 Tablet(s) PO BID 02/21/2013 02/27/2013 Inactive fluconazole 150 mg tablet RxNorm: 065261 1 Tablet(s) PO PRN one pill as needed for yeast infection symptoms 02/14/2013 04/23/2014 Inactive Xanax 0.25 mg tablet RxNorm: 970547 Tablet(s) PO TAKE ONE TABLET BY MOUTH EVERY 8 HOURS NEEDED FOR ANXIETY 02/03/2013 11/20/2013 Inactive (Appended: Controlled substance eRx refill - RxReferenceNumber: [id number]) Ambien 10 mg tablet RxNorm: 341020 Tablet(s) PO TAKE ONE TABLET BY MOUTH AT BEDTIME NEEDED 02/03/2013 08/31/2013 Inactive (Appended: Controlled substance eRx refill - RxReferenceNumber: [id number]) Ambien 10 mg tablet RxNorm: 242572 Tablet(s) PO TAKE ONE TABLET BY MOUTH AT BEDTIME NEEDED 02/03/2013 01/10/2015 Inactive (Appended: Controlled substance eRx refill - RxReferenceNumber: [id number]) Xanax 0.25 mg tablet RxNorm: 505337 Tablet(s) PO 02/03/2013 07/20/2013 Inactive TAKE ONE TABLET BY MOUTH EVERY 8 HOURS NEEDED FOR ANXIETY (Appended: Controlled substance eRx refill - RxReferenceNumber: [id number]) Xanax 0.25 mg tablet RxNorm: 534623 Tablet(s) PO TAKE ONE TABLET BY MOUTH EVERY 8 HOURS NEEDED FOR ANXIETY 12/08/2012 02/03/2013 Inactive (Appended: Controlled substance eRx refill - RxReferenceNumber: [id number]) Ambien 10 mg tablet RxNorm: 710491 Tablet(s) PO TAKE ONE TABLET BY MOUTH AT BEDTIME NEEDED 12/08/2012 02/02/2013 Inactive (Appended: Controlled substance eRx refill - RxReferenceNumber: [id number]) Xanax 0.25 mg tablet RxNorm: 251908 Tablet(s) PO TAKE ONE TABLET BY MOUTH EVERY 8 HOURS NEEDED FOR ANXIETY 12/08/2012 12/07/2012 Inactive (Appended: Controlled substance eRx refill - RxReferenceNumber: [id number]) Ambien 10 mg tablet RxNorm: 213596 Tablet(s) PO TAKE ONE TABLET BY MOUTH AT BEDTIME NEEDED 12/08/2012 02/03/2013 Inactive (Appended: Controlled substance eRx refill - RxReferenceNumber: [id number]) Ambien 10 mg tablet RxNorm: 606549 Tablet(s) PO 08/27/2012 12/08/2012 Inactive TAKE ONE TABLET BY MOUTH AT BEDTIME NEEDED (Appended: Controlled substance eRx refill - RxReferenceNumber: [id number]) Xanax 0.25 mg tablet RxNorm: 940486 Tablet(s) PO 08/24/2012 02/02/2013 Inactive TAKE ONE TABLET BY MOUTH EVERY 8 HOURS NEEDED FOR ANXIETY (Appended: Controlled substance eRx refill - RxReferenceNumber: [id number]) Ambien 10 mg tablet RxNorm: 697243 Tablet(s) PO 08/24/2012 08/27/2012 Inactive TAKE ONE TABLET BY MOUTH AT BEDTIME NEEDED (Appended: Controlled substance eRx refill - RxReferenceNumber: [id number]) Xanax 0.25 mg tablet RxNorm: 007699 Tablet(s) PO 08/24/2012 12/08/2012 Inactive TAKE ONE TABLET BY MOUTH EVERY 8 HOURS NEEDED FOR ANXIETY (Appended: Controlled substance eRx refill - RxReferenceNumber: [id number]) Xanax 0.25 mg tablet RxNorm: 754358 1 Tablet(s) PO Q8 PRN 07/09/2012 08/24/2012 Inactive omeprazole 20 mg capsule,delayed release RxNorm: 482584 1 Capsule(s) PO daily 05/19/2012 12/14/2012 Inactive Ambien 10 mg tablet RxNorm: 540243 1 Tablet(s) PO QHS 05/19/2012 08/24/2012 Inactive Xanax 0.25 mg tablet RxNorm: 177920 1 Tablet(s) PO Q8 PRN 03/16/2012 06/13/2012 Inactive Diflucan 150 mg Tab RxNorm: 054513 1 Tablet(s) PO daily 01/05/2012 01/14/2012 Inactive Ambien 10 mg tablet RxNorm: 752048 1 Tablet(s) PO QHS 01/02/2012 04/30/2012 Inactive Ambien 10 mg Tab RxNorm: 356515 1 Tablet(s) PO QHS 12/24/2011 01/01/2012 Inactive Rocephin 500 mg Solution for Injection RxNorm: 1073060 1 Milliliter(s) Inj 11/13/2011 11/13/2011 Inactive omeprazole 20 mg capsule,delayed release RxNorm: 063761 1 Capsule(s) PO daily 10/07/2011 05/18/2012 Inactive omeprazole 20 mg Cap, Delayed Release RxNorm: 316268 1 Capsule(s) PO daily 10/07/2011 04/03/2012 Inactive Ambien 5 mg Tab RxNorm: 823192 1 Tablet(s) PO QHS 1 tab q hs prn insomnia 10/07/2011 12/23/2011 Inactive Xanax 0.25 mg Tab RxNorm: 019130 1 Tablet(s) PO Q8 PRN 09/29/2011 03/15/2012 Inactive Medication Administered Medication Codes Instructions Start Date Status Rocephin 500 mg Solution for Injection RxNorm: 0596463 1Milliliter 11/13/2011 No longer Active Immunizations Vaccine [...] Item Item Code Result Date GC/CHL PRB 9839324 CHLM PROBE NEG 04/26/2014 GC/CHL PRB 2204688 GC PROBE NEG 04/26/2014 TSH 0862214 TSH 2.977 uIU/ML 02/16/2013 GC/CHL PRB 4600817 SOURCE KIMBERLYN UNKNOWN 02/15/2013 GC/CHL PRB 1734560 CHLM PROBE NEG 02/15/2013 GC/CHL PRB 0379205 GC PROBE NEG 02/15/2013 CHEM 14 8839848 AST 12 U/L 02/15/2013 CHEM 14 3251900 ALT 16 IU/L 02/15/2013 CHEM 14 2440001 BUN 13 MG/DL 02/15/2013 CHEM 14 0599974 ALBUMIN 4.6 GM/DL 02/15/2013 CHEM 14 9128201 CHLORIDE 104 MMOL/L 02/15/2013 CHEM 14 4065217 BILI TOT 0.5 MG/DL 02/15/2013 CHEM 14 5042948 ALK PHOS 55 U/L 02/15/2013 CHEM 14 8235411 SODIUM 137 MMOL/L 02/15/2013 CHEM 14 8316343 CREATININE 0.79 MG/DL 02/15/2013 CHEM 14 3525465 CALCIUM 9.3 MG/DL 02/15/2013 CHEM 14 1725834 POTASSIUM 4.0 MMOL/L 02/15/2013 CHEM 14 7065485 PROT TOT 6.9 GM/DL 02/15/2013 CHEM 14 0685684 GLUCOSE 99 MG/DL 02/15/2013 CHEM 14 4812835 BICARB 29 MMOL/L 02/15/2013 CHEM 14 9945548 ANION GAP 4 MEQ/L 02/15/2013 GFR CALC 9103426 GFR AA >60 ML/MIN 02/15/2013 GFR CALC 9960472 GFR NON-AA >60 ML/MIN 02/15/2013 LIPID GRP HDL TEST 38 MG/DL 02/15/2013 LIPID GRP TRIG 126 MG/DL 02/15/2013 LIPID GRP TEST LDL 112 MG/DL 02/15/2013 LIPID GRP CHOL 175 MG/DL 02/15/2013 LIPID GRP 8703920 RCHOL/HDL 4.61 RATIO 02/15/2013 CBC 4283973 WBC 5.8 10e9/L 02/15/2013 CBC 0134862 RBC 4.51 10e12/L 02/15/2013 CBC 8333307 HGB 13.8 g/dL 02/15/2013 CBC 3984954 HCT DET 39.0 % 02/15/2013 CBC 5497076 MCV 86.5 fL 02/15/2013 CBC 0876182 MCH 30.6 pg 02/15/2013 CBC 0118524 MCHC 35.4 g/dL 02/15/2013 CBC 7881935 PLT 284 10e9/L 02/15/2013 CBC 6777302 MPV 10.3 fL 02/15/2013 CBC 2839223 BLANQUITA % 62.9 % 02/15/2013 CBC 4279550 LY % 26.8 % 02/15/2013 CBC 0076336 MON % 9.1 % 02/15/2013 CBC 2829787 EOS % 1.2 % 02/15/2013 CBC 8566015 BASO % 0.0 % 02/15/2013 CBC 7647688 RDW 14.4 % 02/15/2013 CBC 5213786 ABS BLANQUITA 3.65 10e9/L 02/15/2013 CBC 1810837 ABS LYMPH 1.55 10e9/L 02/15/2013 CBC 7483303 ABS MONO 0.53 10e9/L 02/15/2013 CBC 9321028 ABS EOS 0.07 10e9/L 02/15/2013 CBC 8806187 ABS BASO 0.00 10e9/L 02/15/2013 CBC 1066136 RDW-SD 44.0 fL 02/15/2013 Review of Systems [...] developed 10/26/2018 None Full Exam - General 1994 [...] time 02/14/2013 None Full Exam - General [facility] Constitutional general appearance Overall: well nourished 02/16/2012 [...] upper back, etc Full Exam - General 1995 Musculoskeletal head and neck Overall: cervical spine benign 11/13/2011 None Full Exam - General 1995 Musculoskeletal head and neck Overall: head atraumatic 11/13/2011 None Full Exam - General 1994 Abdomen abdominal exam Overall: no tenderness 11/13/2011 None Full Exam - General 1995 Abdomen abdominal exam Overall: normal bowel sounds 11/13/2011 None Full Exam - General 1995 Cardiovascular auscultation of heart Overall: regular rate 11/13/2011 None Full Exam - General 1995 Cardiovascular auscultation of heart Overall: normal heart [...] PROBE (CHYLMD TRACH DNA AMP PROBE) CPT-4: 96315 04/24/2014 GC PROBE (N.GONORRHOEAE DNA AMP PROB) CPT-4: 72205 04/24/2014 ROUTINE VENIPUNCTURE CPT- 4: 61855 02/15/2013 PREV VISIT EST AGE 40-64 CPT-4: 74341 01/05/2012 ROCEPHIN, PER 250 MG CPT- 4: J0696 11/13/2011 THER/PROPH/DIAG INJ SC/IM CPT-4: 07887 11/13/2011 REMOVE IMPACTED EAR WAX UNI CPT-4: 02676 11/13/2011 Vital Signs Date Vital 10/26/2018 Blood Pressure 1: 140/76 Code: 8480-6 BMI: 31.5 Code: 96048-3 Heart Rate 1: 79 bpm Height: 5'8" SpO2: 98% Weight: 207 lbs 02/22/2018 Blood Pressure 1: 132/70 Code: 8480-6 BMI: 33.1 Code: 78881-3 Heart Rate 1: 75 bpm Height: 5'8" SpO2: 97% Weight: 218 lbs 01/21/2018 Blood Pressure 1: 122/78 Code: 8480-6 Heart Rate 1: 73 bpm Height: 5'8" SpO2: 98% Weight: 09/01/2017 Blood Pressure 1: 134/82 Code: 8480-6 Heart Rate 1: 80 bpm Height: SpO2: 98% Weight: 06/18/2017 Blood Pressure 1: 122/76 Code: 8480-6 BMI: 30.7 Code: 53759-9 Heart Rate 1: 78 bpm Height: 5'8" SpO2: 98% Weight: 202 lbs 02/19/2017 Blood Pressure 1: 132/70 Code: 8480-6 BMI: 30.1 Code: 48197-4 Heart Rate 1: 72 bpm Height: 5'8" SpO2: 98% Weight: 198 lbs 02/05/2017 Blood Pressure 1: 124/84 Code: 8480-6 BMI: 29.3 Code: 60984-6 Heart Rate 1: 98 bpm Height: 5'8" SpO2: 98% Weight: 193 lbs 11/20/2016 Blood Pressure 1: 130/86 Code: 8480-6 BMI: 30.0 Code: 72035-5 Heart Rate 1: 90 bpm Height: 5'8" SpO2: 99% Weight: 197 lbs 09/26/2016 Blood Pressure 1: 124 Code: 8480-6 Heart Rate 1: 74 bpm SpO2: 97% Weight: 203 lbs 08/25/2016 Blood Pressure 1: 12486 Code: 8480-6 BMI: 31.0 Code: 33057-5 Heart Rate 1: 90 bpm Height: 5'8" SpO2: 95% Weight: 204 lbs 12/13/2015 Blood Pressure 1: 11280 Code: 8480-6 BMI: 31.5 Code: 14810-4 Heart Rate 1: 87 bpm Height: 5'8" SpO2: 97% Weight: 207 lbs 11/15/2015 Blood Pressure 1: 146/78 Code: 8480-6 BMI: 32.1 Code: 83767-3 Heart Rate 1: 96 bpm Height: 5'8" SpO2: 97% Weight: 211 lbs 06/28/2015 Blood Pressure 1: 132/64 Code: 8480-6 BMI: 29.5 Code: 94632-3 Heart Rate 1: 91 bpm Height: 5'8" SpO2: 98% Weight: 194 lbs 05/23/2014 Blood Pressure 1: 124/80 Code: 8480-6 BMI: 30.3 Code: 00339-9 Heart Rate 1: 68 bpm Height: 5'8" Weight: 199 lbs 04/24/2014 Blood Pressure 1: 132/72 Code: 8480-6 BMI: 30.7 Code: 05765-1 Heart Rate 1: 82 bpm Height: 5'8" SpO2: 98% Weight: 202 lbs 02/14/2013 Blood Pressure 1: 122/80 Code: 8480-6 BMI: 28.6 Code: 14998-6 Heart Rate 1: 84 bpm Height: 5'8" Respiratory Rate: 16 bpm Weight: 188 lbs 02/16/2012 Blood Pressure 1: 104/66 Code: 8480-6 BMI: 28.5 Code: 39270-6 Heart Rate 1: 76 bpm Height: 5'7" Weight: 182 lbs 01/05/2012 Blood Pressure 1: 100/64 Code: 8480-6 BMI: 28.7 Code: 84808-9 Heart Rate 1: 78 bpm Height: 5'7" Respiratory Rate: 16 bpm Weight: 183 lbs 11/13/2011 Blood Pressure 1: 116/78 Code: 8480-6 Heart Rate 1: 84 bpm Respiratory Rate: 16 bpm SpO2: 98% Temperature: 36.7 (C) / 98.1 (F) Weight: 181 lbs 09/29/2011 Blood Pressure 1: 118/82 Code: 8480-6 BMI: 36.8 Code: 28959-7 Heart Rate 1: 72 bpm Height: 4'10" [...] the day. well woman exam (40-65 years) Breast/[employer] Complaints breast pain 01/05/2012 pt states that [...] data Encounters Encounter Performer Location Codes Date ([id number]) PREV VISIT EST AGE 40-64 Diagnosis: Encounter for general adult medical examination without abnormal findings[ICD10: Z00.00] Bianca Jain MD, [facility] CPT-4: 31541 10/26/2018 [id number] EST. PATIENT, LEVEL III Diagnosis: Excessive and frequent menstruation with regular cycle[ICD10: N92.0] Maylin Jain MD, [facility] CPT-4: 44232 02/22/2018 ([id number]) 08979 EST. PATIENT, LEVEL III Diagnosis: Gastro-esophageal reflux disease with esophagitis[ICD10: K21.0] [facility] CPT-4: 04764 01/21/2018 64655 EST. PATIENT, LEVEL III Diagnosis: Pain in left leg[ICD10: M79.605] [facility] CPT-4: 99547 09/01/2017 ([id number]) 99867 EST. PATIENT, LEVEL III Diagnosis: Generalized anxiety disorder[ICD10: F41.1] [facility] CPT-4: 12111 06/18/2017 51789 EST. PATIENT, LEVEL IV Diagnosis: Pain in left shoulder[ICD10: M25.512] Diagnosis: Pain in right shoulder[ICD10: M25.511] [facility] CPT- 4: 55455 02/19/2017 ([id number]) PREV VISIT EST AGE 40-64 Diagnosis: Encounter for gynecological examination (general) (routine) without abnormal findings[ICD10: Z01.419] [facility] CPT-4: 57202 02/05/2017 ([id number]) 68247 EST. PATIENT, LEVEL III Diagnosis: Generalized anxiety disorder[ICD10: F41.1] Diagnosis: Other obesity due to excess calories[ICD10: E66.09] [facility] CPT-4: 78804 11/20/2016 ([id number]) Miscellaneous no charge Diagnosis: Other obesity due to excess calories[ICD10: E66.09] [facility] CPT-4: 29387 09/26/2016 ([id number]) 43762 EST. PATIENT, LEVEL IV Diagnosis: Generalized anxiety disorder[ICD10: F41.1] Diagnosis: Adjustment insomnia[ICD10: F51.02] Diagnosis: Other obesity due to excess calories[ICD10: E66.09] [facility] CPT-4: 67401 08/25/2016 81341 EST. PATIENT, LEVEL IV Diagnosis: Dizziness and giddiness[ICD10: R42] [facility] CPT- 4: 77065 12/13/2015 47256 EST. PATIENT, LEVEL IV Diagnosis: Dizziness and giddiness[ICD10: R42] Diagnosis: Other chest pain[ICD10: R07.89] Maylin Jain MD, [facility] CPT-4: 07661 11/15/2015 ([id number]) 18468 EST. PATIENT, LEVEL III Diagnosis: GENERALIZED ANXIETY DISEASE[ICD9: 300.02] Diagnosis: Migraines[ICD9: 346.90] Unique Jain MD, [facility] CPT-4: 54908 06/28/2015 ([id number]) 04001 EST. PATIENT, LEVEL III Diagnosis: Right ankle pain[ICD9: 719.47] Diagnosis: Right ankle sprain[ICD9: 845.00] Unique Jain MD, [facility] CPT- 4: 24862 05/23/2014 ([id number]) PREV VISIT EST AGE 40-64 Diagnosis: ROUTINE GYNE EXAM[ICD9: V72.31] Diagnosis: Laboratory exam ordered as part of routine general medical examination[ICD9: V72.62] [facility] CPT-4: 92256 04/24/2014 ([id number]) PREV VISIT EST AGE 40-64 Diagnosis: Well woman exam with routine gynecological exam[ICD9: V72.31] Bianca Jain MD, [facility] CPT-4: 16628 02/14/2013 06209 EST. PATIENT, LEVEL IV Diagnosis: Numbness in both legs[ICD9: 782.0] Diagnosis: Myalgia[ICD9: 729.1] Unique Jain MD, [facility] CPT-4: 29746 02/16/2012 ([id number]) 74602 EST. PATIENT, LEVEL IV Diagnosis: Acute maxillary sinusitis[ICD9: 461.0] Diagnosis: Cough[ICD9: 786.2] Diagnosis: Cerumen impaction[ICD9: 380.4] Bianca Jain MD, [facility] CPT-4: 11119 11/13/2011 ([id number]) OFFICE VISIT, NEW - LEVEL 3 Diagnosis: GENERALIZED ANXIETY DISEASE[ICD9: 300.02] Diagnosis: DEPRESSIVE DISORDER NEC[ICD9: 311] Diagnosis: Impacted cerumen[ICD9: 380.4] Diagnosis: HEARING LOSS[ICD9: 389.9] Bianca Jain MD, [facility] CPT-4: 58024 09/29/2011 Plan of Care Planned Activity Notes [...] renal functioning. 10/26/2018 Appointment: Bianca Jain WPtel: [address] [place], [place] [phone] (15 min) Moderate 10/26/2018 Patient Education: Patient Medication Summary Completed 10/26/2018 Care Plan: Cbc With Differential Cancelled 02/23/2018 Care Plan: Bhcg Qual Cancelled 02/23/2018 Care Plan: Referral Order SNOMED-CT : [id number] Pending 02/23/2018 Visit Plan: Excessive menstrual bleeding and irregular menstruation - pt would like to be referred to OB and would like to know about a possible hysterectomy - will refer - pt is to notify clinic if symptoms do not improve, if they worsen, or with any changes, questions, or concerns. 02/22/2018 Appointment: Maylin Chowdhury WPtel: [facility] (15 min) Moderate 02/22/2018 Patient Education: [...] not improve. 09/01/2017 Appointment: Maylin Chowdhury WPtel: [facility] (30 min) Complex 09/01/2017 Patient Education: Patient Medication Summary Completed 09/01/2017 App[facility]ment: [facility] (15 min) Moderate 07/29/2017 Visit Plan: Chronic [...] not improve. 02/19/2017 Appointment: Maylin Chowdhury WPtel: [facility] (15 min) Moderate 02/19/2017 Patient Education: Patient [...] Pending 02/05/2017 Appointment: Bianca Jain WPtel: [address] [place] [address] [facility] 01/22/2017 Visit Plan: Obesity - chronic issue with this patient. The pt has been counseled about diet changes, calorie restriction, and need to exercise. Pt will RTC in one month for weight check. Anxiety - refill anxiolytic 11/20/2016 Appointment: Bianca Jain WPtel: [facility] [facility] 11/20/2016 Patient Education: Patient [...] situational exposure. No change in current medications. Drqsytgl-mswjdiibtn-orwtzz ambien for prn use Obesity - chronic [...] situational exposure. No change in current medications. Cdvodcgo-ddgmmtkowd-woisvp ambien for prn use Obesity - chronic issue with this patient. The pt has been counseled about diet changes, calorie restriction, and need to exercise. Pt will RTC in one month for weight check. 08/25/2016 Appointment: [facility]el[phone] (15 min) Moderate 08/25/2016 Patient Education: Patient [...] pt consult with Dr. Shun Harrison at [facility]. Migraine headaches - start on topamax. 04/24/2014 Appointment: Bianca Jain WPtel: [address] [place], [place] [phone] [place] Pap Only 04/24/2014 Patient Education: Patient Medication Summary Completed 04/24/2014 Care Plan: PAP Pending 04/24/2014 Appointment: Unique Nichole WPtel: [address] [place], [place] [phone] [place] [address] Other 05/31/2013 Patient Education: Patient Medication Summary [...] Summary Completed 02/14/2013 Appointment: Bianca Jain WPtel: [address] [place], [place] [phone] [place] Pap Only 01/31/2013 Appointment: Unique Nichole WPtel: [address] [place], [place] [phone] [place] Other 09/13/2012 Visit Plan: Numbness-bilateral lower bvk-ixxaefya-naik to check labs including chem panel to evaluate electrolytes as well as blood sugar, cbc, and b12 level. Recommend patient start on a multivitamin daily and drink plenty of fluids. Will call patient with labs results. Instructed patient to call with any concerns or worsening symptoms. Patient verbalized understanding of plan. 02/16/2012 Appointment: Unique Nichole WPtel: [phone] [phone] [place] [address] Other 02/16/2012 Patient Education: Patient Medication Summary [...] cancer. 01/05/2012 Appointment: Bianca Jain WPtel: [address] [facility] Pap Only 01/05/2012 Patient Education: Patient Medication [...] improved. 11/13/2011 Appointment: Bianca Jain WPtel: [address] [facility] [place] Other 11/13/2011 Patient Education: Patient Medication [...] removal process. 09/29/2011 Appointment: Bianca Jain [facility]Ptel: [facility] [facility] 09/29/2011 Patient Education: Patient Medication Summary Completed 09/29/2011 Referral: Aaron Villavicencio WPtel: Referral Appointment Requested Referral: Aaron Villavicencio WPtel: Referral Initiated Instructions Comment . Left lower [...] situational exposure. No change in current medications. Ibsiisxo-tiukwfdiee-kzcgzc ambien for prn use Obesity - chronic [...] situational exposure. No change in current medications. Mpoxiggl-cloxdrfmxj-bvxyqh ambien for prn use Obesity - chronic [...] symptoms worsen, or with any other concerns. [facility] shun harrison and saritha quick [...] pt consult with Dr. Shun Harrison at [facility]. Migraine headaches - start on topamax. Check labs-cbc, cmp, b12 level. . Numbness-bilateral lower lrd-kocrwzup-jbur to check labs including chem panel to [...]
[2019-03-03] MEDS ORDERED: BUPIVACAINE 0.25% 30 ML (SENSORCAINE) VIAL ONE (06:42)
--- OUTSIDE RECORDS SUMMARY | 2019-03-03 06:42 | XMS REPORT | CCD ---
Author Author [facility] Organization [facility] Address [address] [place] [address] Phone Care Team Providers [employer] Instructor Name Role Phone Bianca Jain PP Unavailable CCM Unavailable Summary Purpose Interface Exchange Insurance Providers Payer name Policy type / Coverage type Covered constitution party ID Effective Begin Date Effective End Date Lane [employer] Insurance [id number] 2018 Unknown Family history Brother Diagnosis Age [...] Effective Dates Employment Unknown Currently employed Via [employer] 11/15/2018 Marital status Unknown 01/05/[address]: 530850614 Never smoker 09/29/[address]: 221334 Currently drinks alcohol 3 weekly 09/29/2011 Has [...] Fill Instructions amitriptyline 50 mg tablet RxNorm: 902375 1 Tablet(s) PO QHS 02/02/2019 05/02/2019 Active Xanax 0.5 mg tablet RxNorm: 769368 1 Tablet(s) PO Q8 as needed anxiety 12/03/2018 01/31/2019 Inactive amitriptyline 50 mg tablet RxNorm: 015093 1 Tablet(s) PO QHS 12/01/2018 01/29/2019 Inactive dc ambien amitriptyline 25 mg tablet RxNorm: 602338 1 Tablet(s) PO QHS 11/15/2018 11/30/2018 Inactive dc ambien amitriptyline 25 mg tablet RxNorm: 906597 1 Tablet(s) PO QHS 11/15/2018 11/14/2018 Inactive dc ambien atorvastatin 20 mg tablet RxNorm: 558564 1 Tablet(s) PO daily 11/04/2018 03/03/2019 Active atorvastatin 20 mg tablet RxNorm: 511064 1 Tablet(s) PO daily 11/04/2018 11/03/2018 Inactive topiramate 25 mg tablet RxNorm: 518460 TAKE 1 TABLET BY MOUTH TWICE DAILY 10/26/2018 No Stop Date Active Ambien 10 mg tablet RxNorm: 403690 Tablet(s) TAKE ONE TABLET BY MOUTH AT BEDTIME NEEDED 10/26/2018 11/14/2018 Inactive Xanax 0.5 mg tablet RxNorm: 100400 1 Tablet(s) PO Q8 as needed anxiety 10/26/2018 11/23/2018 Inactive Xanax 0.5 mg tablet RxNorm: 900152 Tablet(s) TAKE ONE TABLET BY MOUTH EVERY 8 HOURS NEEDED FOR ANXIETY 08/27/2018 10/24/2018 Inactive Ambien 10 mg tablet RxNorm: 641704 Tablet(s) TAKE ONE TABLET BY MOUTH AT BEDTIME NEEDED 08/27/2018 11/14/2018 Inactive Ambien 10 mg tablet RxNorm: 685801 Tablet(s) TAKE ONE TABLET BY MOUTH AT BEDTIME NEEDED 07/29/2018 08/26/2018 Inactive Lexapro 10 mg tablet RxNorm: 058676 TAKE 1 TABLET BY MOUTH IN THE EVENING 07/27/2018 No Stop Date Active Xanax 0.5 mg tablet RxNorm: 377972 1 Tablet(s) PO Q8 as needed anxiety 06/18/2018 09/15/2018 Inactive Xanax 0.5 mg tablet RxNorm: 984728 Tablet(s) TAKE ONE TABLET BY MOUTH EVERY 8 HOURS NEEDED FOR ANXIETY 06/18/2018 08/15/2018 Inactive Ambien 10 mg tablet RxNorm: 637142 1 Tablet(s) PO HS PRN TAKE ONE TABLET BY MOUTH AT BEDTIME NEEDED 05/20/2018 10/25/2018 Inactive topiramate 25 mg tablet RxNorm: 613236 TAKE ONE TABLET BY MOUTH TWICE DAILY 04/21/2018 10/25/2018 Inactive Xanax 0.5 mg tablet RxNorm: 785664 1 Tablet(s) PO Q8 as needed anxiety 03/24/2018 06/17/2018 Inactive Ambien 10 mg tablet RxNorm: 093577 1 Tablet(s) PO HS PRN TAKE ONE TABLET BY MOUTH AT BEDTIME NEEDED 02/22/2018 05/19/2018 Inactive naproxen 500 mg tablet RxNorm: 912806 1 Tablet(s) PO BID 02/22/2018 02/26/2018 Inactive Ambien 10 mg tablet RxNorm: 572450 TAKE ONE TABLET BY MOUTH AT BEDTIME NEEDED 02/19/2018 07/28/2018 Inactive Dexilant 60 mg capsule, delayed release RxNorm: 308799 1 Capsule(s) PO daily 01/21/2018 No Stop Date Active Xanax 0.5 mg tablet RxNorm: 195990 Tablet(s) TAKE ONE TABLET BY MOUTH EVERY 8 HOURS NEEDED FOR ANXIETY 01/19/2018 03/17/2018 Inactive Lexapro 10 mg tablet RxNorm: 144374 TAKE ONE TABLET BY MOUTH IN THE EVENING 01/18/2018 07/26/2018 Inactive Xanax 0.5 mg tablet RxNorm: 267217 1 Tablet(s) PO Q8 PRN TAKE ONE TABLET BY MOUTH EVERY 8 HOURS NEEDED FOR ANXIETY 12/17/2017 01/14/2018 Inactive topiramate 25 mg tablet RxNorm: 650702 TAKE ONE TABLET BY MOUTH TWICE DAILY 10/13/2017 04/20/2018 Inactive K-Dur 10 mEq tablet,extended release RxNorm: 118085 1 Tablet(s) PO daily 09/11/2017 09/11/2017 Inactive potassium chloride ER 10 mEq tablet,extended release RxNorm: 560657 1 Tablet(s) PO daily 09/11/2017 09/10/2017 Inactive Lasix 20 mg tablet RxNorm: 884039 1 Tablet(s) PO daily for three days 09/11/2017 09/10/2017 Inactive potassium chloride ER 10 mEq tablet,extended release RxNorm: 201095 1 Tablet(s) PO daily 09/11/2017 09/13/2017 Inactive Lasix 20 mg tablet RxNorm: 316476 1 Tablet(s) PO daily for three days 09/11/2017 09/13/2017 Inactive naproxen 500 mg tablet RxNorm: 955868 1 Tablet(s) PO BID 09/01/2017 09/05/2017 Inactive Ambien 10 mg tablet RxNorm: 248269 1 Tablet(s) PO HS PRN TAKE ONE TABLET BY MOUTH AT BEDTIME NEEDED 08/14/2017 02/22/2018 Inactive Xanax 0.5 mg tablet RxNorm: 192824 1 Tablet(s) PO Q8 PRN TAKE ONE TABLET BY MOUTH EVERY 8 HOURS NEEDED FOR ANXIETY 08/14/2017 01/18/2018 Inactive Lexapro 10 mg tablet RxNorm: 437114 TAKE ONE TABLET BY MOUTH IN THE EVENING 07/13/2017 01/08/2018 Inactive Xanax 0.5 mg tablet RxNorm: 285700 1 Tablet(s) PO Q8 PRN TAKE ONE TABLET BY MOUTH EVERY 8 HOURS NEEDED FOR ANXIETY 06/18/2017 07/16/2017 Inactive Xanax 0.25 mg tablet RxNorm: 252115 Tablet(s) TAKE ONE TABLET BY MOUTH EVERY 8 HOURS NEEDED FOR ANXIETY 06/17/2017 06/17/2017 Inactive Ambien 10 mg tablet RxNorm: 649013 1 Tablet(s) PO QHS as needed insomnia 06/17/2017 08/17/2017 Inactive topiramate 25 mg tablet RxNorm: 064709 TAKE ONE TABLET BY MOUTH TWICE DAILY 06/16/2017 10/12/2017 Inactive Lexapro 10 mg tablet RxNorm: 358711 TAKE ONE TABLET BY MOUTH IN THE EVENING 04/17/2017 07/12/2017 Inactive Ambien 10 mg tablet RxNorm: 265404 1 Tablet(s) PO QHS as needed insomnia 04/17/2017 01/18/2018 Inactive Xanax 0.25 mg tablet RxNorm: 530578 Tablet(s) TAKE ONE TABLET BY MOUTH EVERY 8 HOURS NEEDED FOR ANXIETY 04/17/2017 06/13/2017 Inactive topiramate 25 mg tablet RxNorm: 841008 TAKE ONE TABLET BY MOUTH TWICE DAILY 03/20/2017 06/15/2017 Inactive Flagyl 500 mg tablet RxNorm: 875504 1 Tablet(s) PO TID do not drink alcohol when taking this medication 02/05/2017 02/09/2017 Inactive Ambien 10 mg tablet RxNorm: 622727 1 Tablet(s) PO QHS as needed insomnia 01/23/2017 04/21/2017 Inactive Xanax 0.25 mg tablet RxNorm: 559929 TAKE ONE TABLET BY MOUTH EVERY 8 HOURS NEEDED FOR ANXIETY 01/23/2017 04/21/2017 Inactive Xanax 0.25 mg tablet RxNorm: 392573 1 Tablet(s) PO TAKE ONE TABLET BY MOUTH EVERY 8 HOURS NEEDED FOR ANXIETY 11/28/2016 01/18/2018 Inactive Lexapro 10 mg tablet RxNorm: 614678 1 Tablet(s) PO QPM 11/20/2016 04/16/2017 Inactive topiramate 25 mg tablet RxNorm: 667921 1 Tablet(s) PO BID start one pill at hs, if migraines not improving, then increase to bid 11/20/2016 01/18/2018 Inactive Ambien 10 mg tablet RxNorm: 410110 1 Tablet(s) PO QHS as needed TAKE ONE TABLET BY MOUTH AT BEDTIME NEEDED FOR INSOMNIA 10/31/2016 01/18/2018 Inactive acyclovir 400 mg tablet RxNorm: 114805 1 Tablet(s) PO TID 10/01/2016 10/05/2016 Inactive acyclovir 400 mg tablet RxNorm: 024331 1 Tablet(s) PO TID 10/01/2016 09/30/2016 Inactive phentermine 37.5 mg tablet RxNorm: 351971 1 Tablet(s) PO daily 09/26/2016 02/04/2017 Inactive Xanax 0.25 mg tablet RxNorm: 849834 Tablet(s) TAKE ONE TABLET BY MOUTH EVERY 8 HOURS NEEDED FOR ANXIETY 08/25/2016 01/18/2018 Inactive Ambien 10 mg tablet RxNorm: 349101 1 Tablet(s) PO daily as needed TAKE ONE TABLET BY MOUTH AT BEDTIME NEEDED FOR INSOMNIA 08/25/2016 11/19/2016 Inactive phentermine 37.5 mg tablet RxNorm: 710600 1 Tablet(s) PO daily 08/25/2016 09/25/2016 Inactive topiramate 25 mg tablet RxNorm: 747482 TAKE ONE TABLET BY MOUTH TWICE DAILY 07/09/2016 08/24/2016 Inactive Xanax 0.25 mg tablet RxNorm: 827381 Tablet(s) TAKE ONE TABLET BY MOUTH EVERY 8 HOURS NEEDED FOR ANXIETY 04/28/2016 06/25/2016 Inactive Ambien 10 mg tablet RxNorm: 800947 1 Tablet(s) PO daily as needed TAKE ONE TABLET BY MOUTH AT BEDTIME NEEDED FOR INSOMNIA 04/28/2016 06/24/2016 Inactive topiramate 25 mg tablet RxNorm: 828963 1 Tablet(s) PO BID 02/20/2016 06/18/2016 Inactive Ambien 10 mg tablet RxNorm: 002168 1 Tablet(s) PO daily as needed TAKE ONE TABLET BY MOUTH AT BEDTIME NEEDED FOR INSOMNIA 01/03/2016 03/31/2016 Inactive (Response to an electronic controlled substance refill request - RxReferenceNumber: [id number]) Xanax 0.25 mg tablet RxNorm: 974999 Tablet(s) TAKE ONE TABLET BY MOUTH EVERY 8 HOURS NEEDED FOR ANXIETY 01/03/2016 01/18/2018 Inactive (Response to an electronic controlled substance refill request - RxReferenceNumber: [id number]) meclizine 25 mg tablet RxNorm: 693666 1 Tablet(s) PO QID 12/13/2015 01/11/2016 Inactive Xanax 0.25 mg tablet RxNorm: 321974 Tablet(s) TAKE ONE TABLET BY MOUTH EVERY 8 HOURS NEEDED FOR ANXIETY 11/23/2015 01/18/2018 Inactive (Response to an electronic controlled substance refill request - RxReferenceNumber: [id number]) topiramate 25 mg tablet RxNorm: 177912 1 Tablet(s) PO BID 11/02/2015 12/12/2015 Inactive pt needs to make an appt Ambien 10 mg tablet RxNorm: 538899 1 Tablet(s) PO daily as needed TAKE ONE TABLET BY MOUTH AT BEDTIME NEEDED FOR INSOMNIA 10/30/2015 11/19/2016 Inactive (Response to an electronic controlled substance refill request - RxReferenceNumber: [id number]) Xanax 0.25 mg tablet RxNorm: 093339 Tablet(s) TAKE ONE TABLET BY MOUTH EVERY 8 HOURS NEEDED FOR ANXIETY 09/20/2015 10/18/2015 Inactive (Response to an electronic controlled substance refill request - RxReferenceNumber: [id number]) Xanax 0.25 mg tablet RxNorm: 584093 Tablet(s) TAKE ONE TABLET BY MOUTH EVERY 8 HOURS NEEDED FOR ANXIETY 06/28/2015 08/25/2015 Inactive (Response to an electronic controlled substance refill request - RxReferenceNumber: [id number]) topiramate 25 mg tablet RxNorm: 667646 1 Tablet(s) PO BID 06/27/2015 10/24/2015 Inactive Ambien 10 mg tablet RxNorm: 161696 1 Tablet(s) PO daily as needed TAKE ONE TABLET BY MOUTH AT BEDTIME NEEDED FOR INSOMNIA 06/26/2015 09/23/2015 Inactive (Response to an electronic controlled substance refill request - RxReferenceNumber: [id number]) Xanax 0.25 mg tablet RxNorm: 973000 Tablet(s) TAKE ONE TABLET BY MOUTH EVERY 8 HOURS NEEDED FOR ANXIETY 04/04/2015 06/02/2015 Inactive (Response to an electronic controlled substance refill request - RxReferenceNumber: [id number]) Ambien 10 mg tablet RxNorm: 184497 1 Tablet(s) PO daily as needed TAKE ONE TABLET BY MOUTH AT BEDTIME NEEDED FOR INSOMNIA 02/16/2015 05/16/2015 Inactive (Response to an electronic controlled substance refill request - RxReferenceNumber: [id number]) Ambien 10 mg tablet RxNorm: 300819 TAKE ONE TABLET BY MOUTH AT BEDTIME NEEDED FOR INSOMNIA 01/11/2015 02/09/2015 Inactive (Response to an electronic controlled substance refill request - RxReferenceNumber: [id number]) Ambien 10 mg tablet RxNorm: 194087 1 Tablet(s) PO QHS as needed TAKE ONE TABLET BY MOUTH AT BEDTIME NEEDED 01/11/2015 01/11/2015 Inactive (Appended: Controlled substance eRx refill - RxReferenceNumber: [id number]) topiramate 25 mg tablet RxNorm: 479012 1 Tablet(s) PO BID 01/11/2015 05/10/2015 Inactive Xanax 0.25 mg tablet RxNorm: 607033 TAKE ONE TABLET BY MOUTH EVERY 8 HOURS NEEDED FOR ANXIETY 01/11/2015 02/09/2015 Inactive (Response to an electronic controlled substance refill request - RxReferenceNumber: [id number]) Xanax 0.25 mg tablet RxNorm: 288636 Tablet(s) TAKE ONE TABLET BY MOUTH EVERY 8 HOURS NEEDED FOR ANXIETY 01/11/2015 01/11/2015 Inactive (Response to an electronic controlled substance refill request - RxReferenceNumber: [id number]) Xanax 0.25 mg tablet RxNorm: 003016 Tablet(s) TAKE ONE TABLET BY MOUTH EVERY 8 HOURS NEEDED FOR ANXIETY 11/20/2014 12/17/2014 Inactive (Response to an electronic controlled substance refill request - RxReferenceNumber: [id number]) Xanax 0.25 mg tablet RxNorm: 751807 TAKE ONE TABLET BY MOUTH EVERY 8 HOURS NEEDED FOR ANXIETY 09/14/2014 10/13/2014 Inactive (Response to an electronic controlled substance refill request - RxReferenceNumber: [id number]) Xanax 0.25 mg tablet RxNorm: 480135 Tablet(s) PO TAKE ONE TABLET BY MOUTH EVERY 8 HOURS NEEDED FOR ANXIETY 09/12/2014 09/15/2014 Inactive (Appended: Controlled substance eRx refill - RxReferenceNumber: [id number]) Xanax 0.25 mg tablet RxNorm: 293938 TAKE ONE TABLET BY MOUTH EVERY 8 HOURS NEEDED FOR ANXIETY 07/31/2014 07/31/2014 Inactive (Response to an electronic controlled substance refill request - RxReferenceNumber: [id number]) Ambien 10 mg tablet RxNorm: 312360 TAKE ONE TABLET BY MOUTH AT BEDTIME NEEDED FOR INSOMNIA 07/31/2014 11/19/2016 Inactive (Response to an electronic controlled substance refill request - RxReferenceNumber: [id number]) Xanax 0.25 mg tablet RxNorm: 834896 TAKE ONE TABLET BY MOUTH EVERY 8 HOURS NEEDED FOR ANXIETY 07/31/2014 08/29/2014 Inactive (Response to an electronic controlled substance refill request - RxReferenceNumber: [id number]) metronidazole 500 mg tablet RxNorm: 824290 1 Tablet(s) PO TID 05/25/2014 05/31/2014 Inactive Diflucan 150 mg tablet RxNorm: 485784 1 Tablet(s) PO daily 05/25/2014 05/29/2014 Inactive topiramate 25 mg tablet RxNorm: 307265 1 Tablet(s) PO BID 04/24/2014 11/19/2014 Inactive Xanax 0.25 mg tablet RxNorm: 844011 Tablet(s) PO TAKE ONE TABLET BY MOUTH EVERY 8 HOURS NEEDED FOR ANXIETY 01/17/2014 07/31/2014 Inactive (Appended: Controlled substance eRx refill - RxReferenceNumber: [id number]) Xanax 0.25 mg tablet RxNorm: 017864 Tablet(s) PO TAKE ONE TABLET BY MOUTH EVERY 8 HOURS NEEDED FOR ANXIETY 01/16/2014 01/17/2014 Inactive (Appended: Controlled substance eRx refill - RxReferenceNumber: [id number]) Xanax 0.25 mg tablet RxNorm: 796828 Tablet(s) PO TAKE ONE TABLET BY MOUTH EVERY 8 HOURS NEEDED FOR ANXIETY 01/13/2014 09/11/2014 Inactive (Appended: Controlled substance eRx refill - RxReferenceNumber: [id number]) Xanax 0.25 mg tablet RxNorm: 220449 Tablet(s) PO TAKE ONE TABLET BY MOUTH EVERY 8 HOURS NEEDED FOR ANXIETY 11/21/2013 01/16/2014 Inactive (Appended: Controlled substance eRx refill - RxReferenceNumber: [id number]) Xanax 0.25 mg tablet RxNorm: 874412 Tablet(s) PO TAKE ONE TABLET BY MOUTH EVERY 8 HOURS NEEDED FOR ANXIETY 11/18/2013 01/15/2014 Inactive (Appended: Controlled substance eRx refill - RxReferenceNumber: [id number]) Ambien 10 mg tablet RxNorm: 597730 Tablet(s) PO TAKE ONE TABLET BY MOUTH EVERY DAY AT BEDTIME NEEDED 08/31/2013 07/31/2014 Inactive (Appended: Controlled substance eRx refill - RxReferenceNumber: [id number]) Ambien 10 mg tablet RxNorm: 814526 Tablet(s) PO TAKE ONE TABLET BY MOUTH EVERY DAY AT BEDTIME NEEDED 08/31/2013 08/30/2013 Inactive (Appended: Controlled substance eRx refill - RxReferenceNumber: [id number]) Xanax 0.25 mg tablet RxNorm: 394403 Tablet(s) PO TAKE ONE TABLET BY MOUTH EVERY 8 HOURS NEEDED FOR ANXIETY 07/21/2013 11/21/2013 Inactive (Appended: Controlled substance eRx refill - RxReferenceNumber: [id number]) Xanax 0.25 mg tablet RxNorm: 516678 Tablet(s) PO TAKE ONE TABLET BY MOUTH EVERY 8 HOURS NEEDED FOR ANXIETY 07/19/2013 07/21/2013 Inactive (Appended: Controlled substance eRx refill - RxReferenceNumber: [id number]) omeprazole 20 mg capsule,delayed release RxNorm: 520776 Capsule(s) PO TAKE ONE CAPSULE BY MOUTH EVERY DAY 05/23/2013 04/23/2014 Inactive Flagyl 500 mg tablet RxNorm: 837498 1 Tablet(s) PO BID 02/21/2013 02/20/2013 Inactive Flagyl 500 mg tablet RxNorm: 730675 1 Tablet(s) PO BID 02/21/2013 02/27/2013 Inactive fluconazole 150 mg tablet RxNorm: 072333 1 Tablet(s) PO PRN one pill as needed for yeast infection symptoms 02/14/2013 04/23/2014 Inactive Xanax 0.25 mg tablet RxNorm: 236768 Tablet(s) PO TAKE ONE TABLET BY MOUTH EVERY 8 HOURS NEEDED FOR ANXIETY 02/03/2013 11/20/2013 Inactive (Appended: Controlled substance eRx refill - RxReferenceNumber: [id number]) Ambien 10 mg tablet RxNorm: 589674 Tablet(s) PO TAKE ONE TABLET BY MOUTH AT BEDTIME NEEDED 02/03/2013 08/31/2013 Inactive (Appended: Controlled substance eRx refill - RxReferenceNumber: [id number]) Ambien 10 mg tablet RxNorm: 284642 Tablet(s) PO TAKE ONE TABLET BY MOUTH AT BEDTIME NEEDED 02/03/2013 01/10/2015 Inactive (Appended: Controlled substance eRx refill - RxReferenceNumber: [id number]) Xanax 0.25 mg tablet RxNorm: 970023 Tablet(s) PO 02/03/2013 07/20/2013 Inactive TAKE ONE TABLET BY MOUTH EVERY 8 HOURS NEEDED FOR ANXIETY (Appended: Controlled substance eRx refill - RxReferenceNumber: [id number]) Xanax 0.25 mg tablet RxNorm: 055554 Tablet(s) PO TAKE ONE TABLET BY MOUTH EVERY 8 HOURS NEEDED FOR ANXIETY 12/08/2012 02/03/2013 Inactive (Appended: Controlled substance eRx refill - RxReferenceNumber: [id number]) Ambien 10 mg tablet RxNorm: 116897 Tablet(s) PO TAKE ONE TABLET BY MOUTH AT BEDTIME NEEDED 12/08/2012 02/02/2013 Inactive (Appended: Controlled substance eRx refill - RxReferenceNumber: [id number]) Xanax 0.25 mg tablet RxNorm: 992678 Tablet(s) PO TAKE ONE TABLET BY MOUTH EVERY 8 HOURS NEEDED FOR ANXIETY 12/08/2012 12/07/2012 Inactive (Appended: Controlled substance eRx refill - RxReferenceNumber: [id number]) Ambien 10 mg tablet RxNorm: 679494 Tablet(s) PO TAKE ONE TABLET BY MOUTH AT BEDTIME NEEDED 12/08/2012 02/03/2013 Inactive (Appended: Controlled substance eRx refill - RxReferenceNumber: [id number]) Ambien 10 mg tablet RxNorm: 440002 Tablet(s) PO 08/27/2012 12/08/2012 Inactive TAKE ONE TABLET BY MOUTH AT BEDTIME NEEDED (Appended: Controlled substance eRx refill - RxReferenceNumber: [id number]) Xanax 0.25 mg tablet RxNorm: 658923 Tablet(s) PO 08/24/2012 02/02/2013 Inactive TAKE ONE TABLET BY MOUTH EVERY 8 HOURS NEEDED FOR ANXIETY (Appended: Controlled substance eRx refill - RxReferenceNumber: [id number]) Ambien 10 mg tablet RxNorm: 863321 Tablet(s) PO 08/24/2012 08/27/2012 Inactive TAKE ONE TABLET BY MOUTH AT BEDTIME NEEDED (Appended: Controlled substance eRx refill - RxReferenceNumber: [id number]) Xanax 0.25 mg tablet RxNorm: 140190 Tablet(s) PO 08/24/2012 12/08/2012 Inactive TAKE ONE TABLET BY MOUTH EVERY 8 HOURS NEEDED FOR ANXIETY (Appended: Controlled substance eRx refill - RxReferenceNumber: [id number]) Xanax 0.25 mg tablet RxNorm: 314259 1 Tablet(s) PO Q8 PRN 07/09/2012 08/24/2012 Inactive omeprazole 20 mg capsule,delayed release RxNorm: 808344 1 Capsule(s) PO daily 05/19/2012 12/14/2012 Inactive Ambien 10 mg tablet RxNorm: 493350 1 Tablet(s) PO QHS 05/19/2012 08/24/2012 Inactive Xanax 0.25 mg tablet RxNorm: 599310 1 Tablet(s) PO Q8 PRN 03/16/2012 06/13/2012 Inactive Diflucan 150 mg Tab RxNorm: 380013 1 Tablet(s) PO daily 01/05/2012 01/14/2012 Inactive Ambien 10 mg tablet RxNorm: 004106 1 Tablet(s) PO QHS 01/02/2012 04/30/2012 Inactive Ambien 10 mg Tab RxNorm: 324607 1 Tablet(s) PO QHS 12/24/2011 01/01/2012 Inactive Rocephin 500 mg Solution for Injection RxNorm: 6663683 1 Milliliter(s) Inj 11/13/2011 11/13/2011 Inactive omeprazole 20 mg capsule,delayed release RxNorm: 220938 1 Capsule(s) PO daily 10/07/2011 05/18/2012 Inactive omeprazole 20 mg Cap, Delayed Release RxNorm: 192996 1 Capsule(s) PO daily 10/07/2011 04/03/2012 Inactive Ambien 5 mg Tab RxNorm: 563334 1 Tablet(s) PO QHS 1 tab q hs prn insomnia 10/07/2011 12/23/2011 Inactive Xanax 0.25 mg Tab RxNorm: 386546 1 Tablet(s) PO Q8 PRN 09/29/2011 03/15/2012 Inactive Medication Administered Medication Codes Instructions Start Date Status Rocephin 500 mg Solution for Injection RxNorm: 3861565 1Milliliter 11/13/2011 No longer Active Immunizations Vaccine [...] Item Item Code Result Date GC/CHL PRB 2962298 CHLM PROBE NEG 04/26/2014 GC/CHL PRB 3160218 GC PROBE NEG 04/26/2014 TSH 0864207 TSH 2.977 uIU/ML 02/16/2013 GC/CHL PRB 8508672 SOURCE KIMBERLYN UNKNOWN 02/15/2013 GC/CHL PRB 1928182 CHLM PROBE NEG 02/15/2013 GC/CHL PRB 6272638 GC PROBE NEG 02/15/2013 CHEM 14 5017198 AST 12 U/L 02/15/2013 CHEM 14 1110836 ALT 16 IU/L 02/15/2013 CHEM 14 5667097 BUN 13 MG/DL 02/15/2013 CHEM 14 6179453 ALBUMIN 4.6 GM/DL 02/15/2013 CHEM 14 3344538 CHLORIDE 104 MMOL/L 02/15/2013 CHEM 14 3503354 BILI TOT 0.5 MG/DL 02/15/2013 CHEM 14 8872075 ALK PHOS 55 U/L 02/15/2013 CHEM 14 6837781 SODIUM 137 MMOL/L 02/15/2013 CHEM 14 8811861 CREATININE 0.79 MG/DL 02/15/2013 CHEM 14 3559656 CALCIUM 9.3 MG/DL 02/15/2013 CHEM 14 4217892 POTASSIUM 4.0 MMOL/L 02/15/2013 CHEM 14 6497993 PROT TOT 6.9 GM/DL 02/15/2013 CHEM 14 1511916 GLUCOSE 99 MG/DL 02/15/2013 CHEM 14 8377684 BICARB 29 MMOL/L 02/15/2013 CHEM 14 1935480 ANION GAP 4 MEQ/L 02/15/2013 GFR CALC 6454984 GFR AA >60 ML/MIN 02/15/2013 GFR CALC 4291754 GFR NON-AA >60 ML/MIN 02/15/2013 LIPID GRP HDL TEST 38 MG/DL 02/15/2013 LIPID GRP TRIG 126 MG/DL 02/15/2013 LIPID GRP TEST LDL 112 MG/DL 02/15/2013 LIPID GRP CHOL 175 MG/DL 02/15/2013 LIPID GRP RCHOL/HDL 4.61 RATIO 02/15/2013 CBC 1697074 WBC 5.8 10e9/L 02/15/2013 CBC 8998658 RBC 4.51 10e12/L 02/15/2013 CBC 9851373 HGB 13.8 g/dL 02/15/2013 CBC 8982844 HCT DET 39.0 % 02/15/2013 CBC 0622753 MCV 86.5 fL 02/15/2013 CBC 2614491 MCH 30.6 pg 02/15/2013 CBC 7880734 MCHC 35.4 g/dL 02/15/2013 CBC 7916695 PLT 284 10e9/L 02/15/2013 CBC 9910330 MPV 10.3 fL 02/15/2013 CBC 1061881 BLANQUITA % 62.9 % 02/15/2013 CBC 0123357 LY % 26.8 % 02/15/2013 CBC 9544036 MON % 9.1 % 02/15/2013 CBC 1825203 EOS % 1.2 % 02/15/2013 CBC 6879695 BASO % 0.0 % 02/15/2013 CBC 9255134 RDW 14.4 % 02/15/2013 CBC 7839437 ABS BLANQUITA 3.65 10e9/L 02/15/2013 CBC 5186939 ABS LYMPH 1.55 10e9/L 02/15/2013 CBC 3257416 ABS MONO 0.53 10e9/L 02/15/2013 CBC 0283637 ABS EOS 0.07 10e9/L 02/15/2013 CBC 0232913 ABS BASO 0.00 10e9/L 02/15/2013 CBC 8334216 RDW-SD 44.0 fL 02/15/2013 Review of Systems [...] distress 02/16/2012 None Full Exam - General 1995 Eyes conjunctiva/eyelids Overall: conjunctiva clear 02/16/2012 None Full Exam - General 1994 Eyes conjunctiva/eyelids Overall: eyelids normal 02/16/2012 None Full Exam - General 1994 Eyes conjunctiva/eyelids Overall: cornea clear 02/16/2012 None Full Exam - General 1994 Eyes pupils and irises Overall: pupils equal, round, reactive to light and accomodation 02/16/2012 None Full Exam - General 1995 Ears/Nose/Throat otoscopic exam Overall: tympanic membranes clear 02/16/2012 None Full Exam - General 1995 Ears/Nose/Throat otoscopic exam Overall: external auditory canals [...] atraumatic 11/13/2011 None Full Exam - General 1995 Abdomen abdominal exam Overall: no tenderness 11/13/2011 None Full Exam - General 1995 Abdomen abdominal exam Overall: normal bowel sounds 11/13/2011 None Full Exam - General 1995 Cardiovascular auscultation of heart Overall: regular rate 11/13/2011 None Full Exam - General 1995 Cardiovascular auscultation of heart Overall: normal heart sounds 11/13/2011 None Full Exam - General 1995 Cardiovascular auscultation of heart Systolic murmur: decrescendo [...] PROBE (CHYLMD TRACH DNA AMP PROBE) CPT-4: 18087 04/24/2014 GC PROBE (N.GONORRHOEAE DNA AMP PROB) CPT-4: 42174 04/24/2014 ROUTINE VENIPUNCTURE CPT- 4: 11289 02/15/2013 PREV VISIT EST AGE 40-64 CPT-4: 83044 01/05/2012 ROCEPHIN, PER 250 MG CPT- 4: J0696 11/13/2011 THER/PROPH/DIAG INJ SC/IM CPT-4: 04049 11/13/2011 REMOVE IMPACTED EAR WAX UNI CPT-4: 96482 11/13/2011 Vital Signs Date Vital 10/26/2018 Blood Pressure 1: 140/76 Code: 8480-6 BMI: 31.5 Code: 26939-2 Heart Rate 1: 79 bpm Height: 5'8" SpO2: 98% Weight: 207 lbs 02/22/2018 Blood Pressure 1: 132/70 Code: 8480-6 BMI: 33.1 Code: 29052-7 Heart Rate 1: 75 bpm Height: 5'8" SpO2: 97% Weight: 218 lbs 01/21/2018 Blood Pressure 1: 122/78 Code: 8480-6 Heart Rate 1: 73 bpm Height: 5'8" SpO2: 98% Weight: 09/01/2017 Blood Pressure 1: 134/82 Code: 8480-6 Heart Rate 1: 80 bpm Height: SpO2: 98% Weight: 06/18/2017 Blood Pressure 1: 122/76 Code: 8480-6 BMI: 30.7 Code: 06297-7 Heart Rate 1: 78 bpm Height: 5'8" SpO2: 98% Weight: 202 lbs 02/19/2017 Blood Pressure 1: 132/70 Code: 8480-6 BMI: 30.1 Code: 66090-1 Heart Rate 1: 72 bpm Height: 5'8" SpO2: 98% Weight: 198 lbs 02/05/2017 Blood Pressure 1: 124/84 Code: 8480-6 BMI: 29.3 Code: 13125-4 Heart Rate 1: 98 bpm Height: 5'8" SpO2: 98% Weight: 193 lbs 11/20/2016 Blood Pressure 1: 130/86 Code: 8480-6 BMI: 30.0 Code: 79857-9 Heart Rate 1: 90 bpm Height: 5'8" SpO2: 99% Weight: 197 lbs 09/26/2016 Blood Pressure 1: 124/ Code: 8480-6 Heart Rate 1: 74 bpm SpO2: 97% Weight: 203 lbs 08/25/2016 Blood Pressure 1: 124/86 Code: 8480-6 BMI: 31.0 Code: 18630-1 Heart Rate 1: 90 bpm Height: 5'8" SpO2: 95% Weight: 204 lbs 12/13/2015 Blood Pressure 1: 112/80 Code: 8480-6 BMI: 31.5 Code: 98216-1 Heart Rate 1: 87 bpm Height: 5'8" SpO2: 97% Weight: 207 lbs 11/15/2015 Blood Pressure 1: 146/78 Code: 8480-6 BMI: 32.1 Code: 30382-4 Heart Rate 1: 96 bpm Height: 5'8" SpO2: 97% Weight: 211 lbs 06/28/2015 Blood Pressure 1: 132/64 Code: 8480-6 BMI: 29.5 Code: 00151-8 Heart Rate 1: 91 bpm Height: 5'8" SpO2: 98% Weight: 194 lbs 05/23/2014 Blood Pressure 1: 124/80 Code: 8480-6 BMI: 30.3 Code: 69361-4 Heart Rate 1: 68 bpm Height: 5'8" Weight: 199 lbs 04/24/2014 Blood Pressure 1: 132/72 Code: 8480-6 BMI: 30.7 Code: 19445-6 Heart Rate 1: 82 bpm Height: 5'8" SpO2: 98% Weight: 202 lbs 02/14/2013 Blood Pressure 1: 122/80 Code: 8480-6 BMI: 28.6 Code: 01391-3 Heart Rate 1: 84 bpm Height: 5'8" Respiratory Rate: 16 bpm Weight: 188 lbs 02/16/2012 Blood Pressure 1: 104/66 Code: 8480-6 BMI: 28.5 Code: 61114-6 Heart Rate 1: 76 bpm Height: 5'7" Weight: 182 lbs 01/05/2012 Blood Pressure 1: 100/64 Code: 8480-6 BMI: 28.7 Code: 24737-9 Heart Rate 1: 78 bpm Height: 5'7" Respiratory Rate: 16 bpm Weight: 183 lbs 11/13/2011 Blood Pressure 1: 116/78 Code: 8480-6 Heart Rate 1: 84 bpm Respiratory Rate: 16 bpm SpO2: 98% Temperature: 36.7 (C) / 98.1 (F) Weight: 181 lbs 09/29/2011 Blood Pressure 1: 118/82 Code: 8480-6 BMI: 36.8 Code: 69372-1 Heart Rate 1: 72 bpm Height: 4'10" [...] the day. 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 PATIENT, LEVEL III Diagnosis: Excessive and frequent menstruation with regular cycle[ICD10: N92.0] Maylin Jain MD, [facility] CPT-4: 77046 02/22/2018 ([id number]) 53301 EST. PATIENT, LEVEL III Diagnosis: Gastro-esophageal reflux disease with esophagitis[ICD10: K21.0] Unique Jain MD, [facility] CPT-4: 86393 01/21/2018 58957 EST. PATIENT, LEVEL III Diagnosis: Pain in left leg[ICD10: M79.605] Maylin Jain MD, [facility] CPT-4: 23018 09/01/2017 ([id number]) 70530 EST. PATIENT, LEVEL III Diagnosis: Generalized anxiety disorder[ICD10: F41.1] Unique Jain MD, [facility] CPT-4: 30854 06/18/2017 21424 EST. PATIENT, LEVEL IV Diagnosis: Pain in left shoulder[ICD10: M25.512] Diagnosis: Pain in right shoulder[ICD10: M25.511] Maylin Jain MD, [facility] CPT- 4: 74539 02/19/2017 ([id number]) PREV VISIT EST AGE 40-64 Diagnosis: Encounter for gynecological examination (general) (routine) without abnormal findings[ICD10: Z01.419] [facility] CPT-4: 42046 02/05/2017 ([id number]) 91202 EST. PATIENT, LEVEL III Diagnosis: Generalized anxiety disorder[ICD10: F41.1] Diagnosis: Other obesity due to excess calories[ICD10: E66.09] [facility] CPT-4: 65853 11/20/2016 ([id number]) Miscellaneous no charge Diagnosis: Other obesity due to excess calories[ICD10: E66.09] [facility] CPT-4: 28148 09/26/2016 ([id number]) 74215 EST. PATIENT, LEVEL IV Diagnosis: Generalized anxiety disorder[ICD10: F41.1] Diagnosis: Adjustment insomnia[ICD10: F51.02] Diagnosis: Other obesity due to excess calories[ICD10: E66.09] [facility] CPT-4: 52230 08/25/2016 61044 EST. PATIENT, LEVEL IV Diagnosis: Dizziness and giddiness[ICD10: R42] [facility] CPT- 4: 19098 12/13/2015 74062 EST. PATIENT, LEVEL IV Diagnosis: Dizziness and giddiness[ICD10: R42] Diagnosis: Other chest pain[ICD10: R07.89] [facility] CPT-4: 74998 11/15/2015 ([id number]) 49050 EST. PATIENT, LEVEL III Diagnosis: GENERALIZED ANXIETY DISEASE[ICD9: 300.02] Diagnosis: Migraines[ICD9: 346.90] [facility] CPT-4: 19897 06/28/2015 ([id number]) 81997 EST. PATIENT, LEVEL III Diagnosis: Right ankle pain[ICD9: 719.47] Diagnosis: Right ankle sprain[ICD9: 845.00] [facility] CPT- 4: 21524 05/23/2014 ([id number]) PREV VISIT EST AGE 40-64 Diagnosis: ROUTINE GYNE EXAM[ICD9: V72.31] Diagnosis: Laboratory exam ordered as part of routine general medical examination[ICD9: V72.62] [facility] CPT-4: 83554 04/24/2014 ([id number]) PREV VISIT EST AGE 40-64 Diagnosis: Well woman exam with routine gynecological exam[ICD9: V72.31] [facility] CPT-4: 23802 02/14/2013 79204 EST. PATIENT, LEVEL IV Diagnosis: Numbness in both legs[ICD9: 782.0] Diagnosis: Myalgia[ICD9: 729.1] [facility] CPT-4: 71675 02/16/2012 ([id number]) 21830 EST. PATIENT, LEVEL IV Diagnosis: Acute maxillary sinusitis[ICD9: 461.0] Diagnosis: Cough[ICD9: 786.2] Diagnosis: Cerumen impaction[ICD9: 380.4] [facility] CPT-4: 69256 11/13/2011 ([id number]) OFFICE VISIT, NEW - LEVEL 3 Diagnosis: GENERALIZED ANXIETY DISEASE[ICD9: 300.02] Diagnosis: DEPRESSIVE DISORDER NEC[ICD9: 311] Diagnosis: Impacted cerumen[ICD9: 380.4] Diagnosis: HEARING LOSS[ICD9: 389.9] [facility] CPT-4: 24576 09/29/2011 Plan of Care Planned Activity Notes [...] renal functioning. 10/26/2018 Appointment: Bianca Jain WPtel: [address] [place], [place] [id number] (15 min) Moderate 10/26/2018 Patient Education: Patient Medication Summary Completed 10/26/2018 Care Plan: Cbc With Differential Cancelled 02/23/2018 Care Plan: Bhcg Qual Cancelled 02/23/2018 Care Plan: Referral Order SNOMED-CT : [id number] Pending 02/23/2018 Visit Plan: Excessive menstrual bleeding and irregular menstruation - pt would like to be referred to OB and would like to know about a possible hysterectomy - will refer - pt is to notify clinic if symptoms do not improve, if they worsen, or with any changes, questions, or concerns. 02/22/2018 Appointment: [facility] Chow[phone] (15 min) Moderate 02/22/2018 Patient Education: Patient [...] not improve. 09/01/2017 Appointment: May[facility] Chowdhury [phone] [facility] [place] (30 min) Complex 09/01/2017 Patient Education: Patient Medication Summary Completed 09/01/2017 [facility]ment[phone] ([facility] min) Moderate 07/29/2017 Visit Plan: [...] not improve. 02/19/2017 Appointment: May[facility] Chowdhury [phone] [facility] (15 min) Moderate 02/19/2017 Patient Education: Patient [...] PAP Pending 02/05/2017 Appointment: Bianca Jain WPtel: [facility] Well Woman 01/22/2017 Visit Plan: Obesity - chronic issue with this patient. The pt has been counseled about diet changes, calorie restriction, and need to exercise. Pt will RTC in one month for weight check. Anxiety - refill anxiolytic 11/20/2016 Appointment: Bianca Jain WPtel: [facility] Well Woman 11/20/2016 Patient Education: Patient Medication [...] situational exposure. No change in current medications. Cgcrubac-zeepczumno-zqqosf ambien for prn use Obesity - chronic [...] situational exposure. No change in current medications. Jzspkaol-pmpkavsqjn-jfqdku ambien for prn use Obesity - chronic issue with this patient. The pt has been counseled about diet changes, calorie restriction, and need to exercise. Pt will RTC in one month for weight check. 08/25/2016 Appointment: Unique Nichole WPtel: [phone] (15 min) Moderate 08/25/2016 Patient Education: Patient [...] pt consult with Dr. Shun Harrison at [facility]. Migraine headaches - start on topamax. 04/24/2014 Appointment: Bianca Jain WPtel: [facility] [place] Pap Only 04/24/2014 Patient Education: Patient Medication Summary Completed 04/24/2014 Care Plan: PAP Pending 04/24/2014 Appointment: Unique Nichole WPtel: [address] [place], [place] [phone] Other 05/31/2013 Patient Education: Patient Medication Summary [...] Summary Completed 02/14/2013 Appointment: Bian[facility]ain [facility]Ptel[facility] [place] [facility] Only 01/31/2013 Appointment: Unique Nichole WPtel: [phone] Other 09/13/2012 Visit Plan: Numbness-bilateral lower gel-fwqvkiyr-yswj to check labs including chem panel to evaluate electrolytes as well as blood sugar, cbc, and b12 level. Recommend patient start on a multivitamin daily and drink plenty of fluids. Will call patient with labs results. Instructed patient to call with any concerns or worsening symptoms. Patient verbalized understanding of plan. 02/16/2012 Appointment: Unique Nichole WPtel: [phone] [phone] [place] [address] Other 02/16/2012 Patient Education: Patient Medication Summary [...] skin cancer. 01/05/2012 Appointment: Bianca Jain WPtel: [facility] [address] Pap Only 01/05/2012 Patient Education: Patient [...] improved. 11/13/2011 Appointment: Bianca Jain WPtel: [phone] [facility] Other 11/13/2011 Patient Education: Patient Medication Summary [...] removal process. 09/29/2011 Appointment: Bianca Jain WPtel: [address] [place], [place] [address] New Patient 09/29/2011 Patient Education: Patient Medication [...] situational exposure. No change in current medications. Zzvnmkxx-sidpfnpqlv-doajlm ambien for prn use Obesity - chronic [...] situational exposure. No change in current medications. Xahtcvfa-knzhqkebur-rpkwfb ambien for prn use Obesity - chronic [...] symptoms worsen, or with any other concerns. [facility] shun harrison and saritha quick [...] pt consult with Dr. Shun Harrison at [facility]. Migraine headaches - start on topamax. Check labs-cbc, cmp, b12 level. . Numbness-bilateral lower lgr-ouefmbvg-hbft to check labs including chem panel to [...]
--- OUTSIDE RECORDS SUMMARY | 2019-03-03 06:45 | XMS REPORT | CCD ---
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 Name Role Phone Bianca Jain PP Unavailable CCM Unavailable Summary Purpose Interface Exchange Insurance Providers Payer name Policy type / Coverage type Covered democrat ID Effective Begin Date Effective End Date [employer] Insurance [id number] 2018 Unknown Family history Brother Diagnosis Age [...] Effective Dates Employment Unknown Currently employed Via [employer] [employer] 11/15/2018 Marital status Unknown 01/05/[address]: 888489697 Never smoker 09/29/[address]: 718228 Currently drinks alcohol 3 weekly 09/29/2011 Has [...] Start Date Stop Date Status Fill Instructions Xanax 0.5 mg tablet RxNorm: 526859 1 Tablet(s) PO Q8 as needed anxiety 12/03/2018 01/31/2019 Active amitriptyline 50 mg tablet RxNorm: 086263 1 Tablet(s) PO QHS 12/01/2018 01/29/2019 Active dc ambien amitriptyline 25 mg tablet RxNorm: 478875 1 Tablet(s) PO QHS 11/15/2018 11/30/2018 Inactive dc ambien amitriptyline 25 mg tablet RxNorm: 125551 1 Tablet(s) PO QHS 11/15/2018 11/14/2018 Inactive dc ambien atorvastatin 20 mg tablet RxNorm: 392036 1 Tablet(s) PO daily 11/04/2018 03/03/2019 Active atorvastatin 20 mg tablet RxNorm: 695812 1 Tablet(s) PO daily 11/04/2018 11/03/2018 Inactive topiramate 25 mg tablet RxNorm: 954003 TAKE 1 TABLET BY MOUTH TWICE DAILY 10/26/2018 No Stop Date Active Ambien 10 mg tablet RxNorm: 460240 Tablet(s) TAKE ONE TABLET BY MOUTH AT BEDTIME NEEDED 10/26/2018 11/14/2018 Inactive Xanax 0.5 mg tablet RxNorm: 481660 1 Tablet(s) PO Q8 as needed anxiety 10/26/2018 11/23/2018 Inactive Xanax 0.5 mg tablet RxNorm: 376762 Tablet(s) TAKE ONE TABLET BY MOUTH EVERY 8 HOURS NEEDED FOR ANXIETY 08/27/2018 10/24/2018 Inactive Ambien 10 mg tablet RxNorm: 312804 Tablet(s) TAKE ONE TABLET BY MOUTH AT BEDTIME NEEDED 08/27/2018 11/14/2018 Inactive Ambien 10 mg tablet RxNorm: 486671 Tablet(s) TAKE ONE TABLET BY MOUTH AT BEDTIME NEEDED 07/29/2018 08/26/2018 Inactive Lexapro 10 mg tablet RxNorm: 030702 TAKE 1 TABLET BY MOUTH IN THE EVENING 07/27/2018 No Stop Date Active Xanax 0.5 mg tablet RxNorm: 918155 1 Tablet(s) PO Q8 as needed anxiety 06/18/2018 09/15/2018 Inactive Xanax 0.5 mg tablet RxNorm: 457030 Tablet(s) TAKE ONE TABLET BY MOUTH EVERY 8 HOURS NEEDED FOR ANXIETY 06/18/2018 08/15/2018 Inactive Ambien 10 mg tablet RxNorm: 045638 1 Tablet(s) PO HS PRN TAKE ONE TABLET BY MOUTH AT BEDTIME NEEDED 05/20/2018 10/25/2018 Inactive topiramate 25 mg tablet RxNorm: 946759 TAKE ONE TABLET BY MOUTH TWICE DAILY 04/21/2018 10/25/2018 Inactive Xanax 0.5 mg tablet RxNorm: 635502 1 Tablet(s) PO Q8 as needed anxiety 03/24/2018 06/17/2018 Inactive Ambien 10 mg tablet RxNorm: 741916 1 Tablet(s) PO HS PRN TAKE ONE TABLET BY MOUTH AT BEDTIME NEEDED 02/22/2018 05/19/2018 Inactive naproxen 500 mg tablet RxNorm: 104775 1 Tablet(s) PO BID 02/22/2018 02/26/2018 Inactive Ambien 10 mg tablet RxNorm: 389799 TAKE ONE TABLET BY MOUTH AT BEDTIME NEEDED 02/19/2018 07/28/2018 Inactive Dexilant 60 mg capsule, delayed release RxNorm: 952276 1 Capsule(s) PO daily 01/21/2018 No Stop Date Active Xanax 0.5 mg tablet RxNorm: 677252 Tablet(s) TAKE ONE TABLET BY MOUTH EVERY 8 HOURS NEEDED FOR ANXIETY 01/19/2018 03/17/2018 Inactive Lexapro 10 mg tablet RxNorm: 315083 TAKE ONE TABLET BY MOUTH IN THE EVENING 01/18/2018 07/26/2018 Inactive Xanax 0.5 mg tablet RxNorm: 961688 1 Tablet(s) PO Q8 PRN TAKE ONE TABLET BY MOUTH EVERY 8 HOURS NEEDED FOR ANXIETY 12/17/2017 01/14/2018 Inactive topiramate 25 mg tablet RxNorm: 510048 TAKE ONE TABLET BY MOUTH TWICE DAILY 10/13/2017 04/20/2018 Inactive K-Dur 10 mEq tablet,extended release RxNorm: 006356 1 Tablet(s) PO daily 09/11/2017 09/11/2017 Inactive potassium chloride ER 10 mEq tablet,extended release RxNorm: 447121 1 Tablet(s) PO daily 09/11/2017 09/10/2017 Inactive Lasix 20 mg tablet RxNorm: 695373 1 Tablet(s) PO daily for three days 09/11/2017 09/10/2017 Inactive potassium chloride ER 10 mEq tablet,extended release RxNorm: 920583 1 Tablet(s) PO daily 09/11/2017 09/13/2017 Inactive Lasix 20 mg tablet RxNorm: 377187 1 Tablet(s) PO daily for three days 09/11/2017 09/13/2017 Inactive naproxen 500 mg tablet RxNorm: 220527 1 Tablet(s) PO BID 09/01/2017 09/05/2017 Inactive Ambien 10 mg tablet RxNorm: 360490 1 Tablet(s) PO HS PRN TAKE ONE TABLET BY MOUTH AT BEDTIME NEEDED 08/14/2017 02/22/2018 Inactive Xanax 0.5 mg tablet RxNorm: 752589 1 Tablet(s) PO Q8 PRN TAKE ONE TABLET BY MOUTH EVERY 8 HOURS NEEDED FOR ANXIETY 08/14/2017 01/18/2018 Inactive Lexapro 10 mg tablet RxNorm: 916652 TAKE ONE TABLET BY MOUTH IN THE EVENING 07/13/2017 01/08/2018 Inactive Xanax 0.5 mg tablet RxNorm: 516708 1 Tablet(s) PO Q8 PRN TAKE ONE TABLET BY MOUTH EVERY 8 HOURS NEEDED FOR ANXIETY 06/18/2017 07/16/2017 Inactive Xanax 0.25 mg tablet RxNorm: 901406 Tablet(s) TAKE ONE TABLET BY MOUTH EVERY 8 HOURS NEEDED FOR ANXIETY 06/17/2017 06/17/2017 Inactive Ambien 10 mg tablet RxNorm: 705663 1 Tablet(s) PO QHS as needed insomnia 06/17/2017 08/17/2017 Inactive topiramate 25 mg tablet RxNorm: 189390 TAKE ONE TABLET BY MOUTH TWICE DAILY 06/16/2017 10/12/2017 Inactive Lexapro 10 mg tablet RxNorm: 997054 TAKE ONE TABLET BY MOUTH IN THE EVENING 04/17/2017 07/12/2017 Inactive Ambien 10 mg tablet RxNorm: 429937 1 Tablet(s) PO QHS as needed insomnia 04/17/2017 01/18/2018 Inactive Xanax 0.25 mg tablet RxNorm: 327984 Tablet(s) TAKE ONE TABLET BY MOUTH EVERY 8 HOURS NEEDED FOR ANXIETY 04/17/2017 06/13/2017 Inactive topiramate 25 mg tablet RxNorm: 470970 TAKE ONE TABLET BY MOUTH TWICE DAILY 03/20/2017 06/15/2017 Inactive Flagyl 500 mg tablet RxNorm: 311828 1 Tablet(s) PO TID do not drink alcohol when taking this medication 02/05/2017 02/09/2017 Inactive Ambien 10 mg tablet RxNorm: 154123 1 Tablet(s) PO QHS as needed insomnia 01/23/2017 04/21/2017 Inactive Xanax 0.25 mg tablet RxNorm: 708058 TAKE ONE TABLET BY MOUTH EVERY 8 HOURS NEEDED FOR ANXIETY 01/23/2017 04/21/2017 Inactive Xanax 0.25 mg tablet RxNorm: 866133 1 Tablet(s) PO TAKE ONE TABLET BY MOUTH EVERY 8 HOURS NEEDED FOR ANXIETY 11/28/2016 01/18/2018 Inactive Lexapro 10 mg tablet RxNorm: 888589 1 Tablet(s) PO QPM 11/20/2016 04/16/2017 Inactive topiramate 25 mg tablet RxNorm: 258194 1 Tablet(s) PO BID start one pill at hs, if migraines not improving, then increase to bid 11/20/2016 01/18/2018 Inactive Ambien 10 mg tablet RxNorm: 305238 1 Tablet(s) PO QHS as needed TAKE ONE TABLET BY MOUTH AT BEDTIME NEEDED FOR INSOMNIA 10/31/2016 01/18/2018 Inactive acyclovir 400 mg tablet RxNorm: 542031 1 Tablet(s) PO TID 10/01/2016 10/05/2016 Inactive acyclovir 400 mg tablet RxNorm: 800455 1 Tablet(s) PO TID 10/01/2016 09/30/2016 Inactive phentermine 37.5 mg tablet RxNorm: 657946 1 Tablet(s) PO daily 09/26/2016 02/04/2017 Inactive Xanax 0.25 mg tablet RxNorm: 139542 Tablet(s) TAKE ONE TABLET BY MOUTH EVERY 8 HOURS NEEDED FOR ANXIETY 08/25/2016 01/18/2018 Inactive Ambien 10 mg tablet RxNorm: 163109 1 Tablet(s) PO daily as needed TAKE ONE TABLET BY MOUTH AT BEDTIME NEEDED FOR INSOMNIA 08/25/2016 11/19/2016 Inactive phentermine 37.5 mg tablet RxNorm: 601287 1 Tablet(s) PO daily 08/25/2016 09/25/2016 Inactive topiramate 25 mg tablet RxNorm: 014317 TAKE ONE TABLET BY MOUTH TWICE DAILY 07/09/2016 08/24/2016 Inactive Xanax 0.25 mg tablet RxNorm: 880378 Tablet(s) TAKE ONE TABLET BY MOUTH EVERY 8 HOURS NEEDED FOR ANXIETY 04/28/2016 06/25/2016 Inactive Ambien 10 mg tablet RxNorm: 357688 1 Tablet(s) PO daily as needed TAKE ONE TABLET BY MOUTH AT BEDTIME NEEDED FOR INSOMNIA 04/28/2016 06/24/2016 Inactive topiramate 25 mg tablet RxNorm: 843292 1 Tablet(s) PO BID 02/20/2016 06/18/2016 Inactive Ambien 10 mg tablet RxNorm: 386338 1 Tablet(s) PO daily as needed TAKE ONE TABLET BY MOUTH AT BEDTIME NEEDED FOR INSOMNIA 01/03/2016 03/31/2016 Inactive (Response to an electronic controlled substance refill request - RxReferenceNumber: [id number]) Xanax 0.25 mg tablet RxNorm: 723857 Tablet(s) TAKE ONE TABLET BY MOUTH EVERY 8 HOURS NEEDED FOR ANXIETY 01/03/2016 01/18/2018 Inactive (Response to an electronic controlled substance refill request - RxReferenceNumber: [id number]) meclizine 25 mg tablet RxNorm: 934275 1 Tablet(s) PO QID 12/13/2015 01/11/2016 Inactive Xanax 0.25 mg tablet RxNorm: 125180 Tablet(s) TAKE ONE TABLET BY MOUTH EVERY 8 HOURS NEEDED FOR ANXIETY 11/23/2015 01/18/2018 Inactive (Response to an electronic controlled substance refill request - RxReferenceNumber: [id number]) topiramate 25 mg tablet RxNorm: 797227 1 Tablet(s) PO BID 11/02/2015 12/12/2015 Inactive pt needs to make an appt Ambien 10 mg tablet RxNorm: 594127 1 Tablet(s) PO daily as needed TAKE ONE TABLET BY MOUTH AT BEDTIME NEEDED FOR INSOMNIA 10/30/2015 11/19/2016 Inactive (Response to an electronic controlled substance refill request - RxReferenceNumber: [id number]) Xanax 0.25 mg tablet RxNorm: 778253 Tablet(s) TAKE ONE TABLET BY MOUTH EVERY 8 HOURS NEEDED FOR ANXIETY 09/20/2015 10/18/2015 Inactive (Response to an electronic controlled substance refill request - RxReferenceNumber: [id number]) Xanax 0.25 mg tablet RxNorm: 360289 Tablet(s) TAKE ONE TABLET BY MOUTH EVERY 8 HOURS NEEDED FOR ANXIETY 06/28/2015 08/25/2015 Inactive (Response to an electronic controlled substance refill request - RxReferenceNumber: [id number]) topiramate 25 mg tablet RxNorm: 741780 1 Tablet(s) PO BID 06/27/2015 10/24/2015 Inactive Ambien 10 mg tablet RxNorm: 258870 1 Tablet(s) PO daily as needed TAKE ONE TABLET BY MOUTH AT BEDTIME NEEDED FOR INSOMNIA 06/26/2015 09/23/2015 Inactive (Response to an electronic controlled substance refill request - RxReferenceNumber: [id number]) Xanax 0.25 mg tablet RxNorm: 184667 Tablet(s) TAKE ONE TABLET BY MOUTH EVERY 8 HOURS NEEDED FOR ANXIETY 04/04/2015 06/02/2015 Inactive (Response to an electronic controlled substance refill request - RxReferenceNumber: [id number]) Ambien 10 mg tablet RxNorm: 401580 1 Tablet(s) PO daily as needed TAKE ONE TABLET BY MOUTH AT BEDTIME NEEDED FOR INSOMNIA 02/16/2015 05/16/2015 Inactive (Response to an electronic controlled substance refill request - RxReferenceNumber: [id number]) Ambien 10 mg tablet RxNorm: 137040 TAKE ONE TABLET BY MOUTH AT BEDTIME NEEDED FOR INSOMNIA 01/11/2015 02/09/2015 Inactive (Response to an electronic controlled substance refill request - RxReferenceNumber: [id number]) Ambien 10 mg tablet RxNorm: 872365 1 Tablet(s) PO QHS as needed TAKE ONE TABLET BY MOUTH AT BEDTIME NEEDED 01/11/2015 01/11/2015 Inactive (Appended: Controlled substance eRx refill - RxReferenceNumber: [id number]) topiramate 25 mg tablet RxNorm: 849384 1 Tablet(s) PO BID 01/11/2015 05/10/2015 Inactive Xanax 0.25 mg tablet RxNorm: 151025 TAKE ONE TABLET BY MOUTH EVERY 8 HOURS NEEDED FOR ANXIETY 01/11/2015 02/09/2015 Inactive (Response to an electronic controlled substance refill request - RxReferenceNumber: [id number]) Xanax 0.25 mg tablet RxNorm: 181822 Tablet(s) TAKE ONE TABLET BY MOUTH EVERY 8 HOURS NEEDED FOR ANXIETY 01/11/2015 01/11/2015 Inactive (Response to an electronic controlled substance refill request - RxReferenceNumber: [id number]) Xanax 0.25 mg tablet RxNorm: 698039 Tablet(s) TAKE ONE TABLET BY MOUTH EVERY 8 HOURS NEEDED FOR ANXIETY 11/20/2014 12/17/2014 Inactive (Response to an electronic controlled substance refill request - RxReferenceNumber: [id number]) Xanax 0.25 mg tablet RxNorm: 227891 TAKE ONE TABLET BY MOUTH EVERY 8 HOURS NEEDED FOR ANXIETY 09/14/2014 10/13/2014 Inactive (Response to an electronic controlled substance refill request - RxReferenceNumber: [id number]) Xanax 0.25 mg tablet RxNorm: 389463 Tablet(s) PO TAKE ONE TABLET BY MOUTH EVERY 8 HOURS NEEDED FOR ANXIETY 09/12/2014 09/15/2014 Inactive (Appended: Controlled substance eRx refill - RxReferenceNumber: [id number]) Xanax 0.25 mg tablet RxNorm: 691929 TAKE ONE TABLET BY MOUTH EVERY 8 HOURS NEEDED FOR ANXIETY 07/31/2014 07/31/2014 Inactive (Response to an electronic controlled substance refill request - RxReferenceNumber: [id number]) Ambien 10 mg tablet RxNorm: 275174 TAKE ONE TABLET BY MOUTH AT BEDTIME NEEDED FOR INSOMNIA 07/31/2014 11/19/2016 Inactive (Response to an electronic controlled substance refill request - RxReferenceNumber: [id number]) Xanax 0.25 mg tablet RxNorm: 164223 TAKE ONE TABLET BY MOUTH EVERY 8 HOURS NEEDED FOR ANXIETY 07/31/2014 08/29/2014 Inactive (Response to an electronic controlled substance refill request - RxReferenceNumber: [id number]) metronidazole 500 mg tablet RxNorm: 772456 1 Tablet(s) PO TID 05/25/2014 05/31/2014 Inactive Diflucan 150 mg tablet RxNorm: 229033 1 Tablet(s) PO daily 05/25/2014 05/29/2014 Inactive topiramate 25 mg tablet RxNorm: 993526 1 Tablet(s) PO BID 04/24/2014 11/19/2014 Inactive Xanax 0.25 mg tablet RxNorm: 281268 Tablet(s) PO TAKE ONE TABLET BY MOUTH EVERY 8 HOURS NEEDED FOR ANXIETY 01/17/2014 07/31/2014 Inactive (Appended: Controlled substance eRx refill - RxReferenceNumber: [id number]) Xanax 0.25 mg tablet RxNorm: 127444 Tablet(s) PO TAKE ONE TABLET BY MOUTH EVERY 8 HOURS NEEDED FOR ANXIETY 01/16/2014 01/17/2014 Inactive (Appended: Controlled substance eRx refill - RxReferenceNumber: [id number]) Xanax 0.25 mg tablet RxNorm: 266382 Tablet(s) PO TAKE ONE TABLET BY MOUTH EVERY 8 HOURS NEEDED FOR ANXIETY 01/13/2014 09/11/2014 Inactive (Appended: Controlled substance eRx refill - RxReferenceNumber: [id number]) Xanax 0.25 mg tablet RxNorm: 794567 Tablet(s) PO TAKE ONE TABLET BY MOUTH EVERY 8 HOURS NEEDED FOR ANXIETY 11/21/2013 01/16/2014 Inactive (Appended: Controlled substance eRx refill - RxReferenceNumber: [id number]) Xanax 0.25 mg tablet RxNorm: 909897 Tablet(s) PO TAKE ONE TABLET BY MOUTH EVERY 8 HOURS NEEDED FOR ANXIETY 11/18/2013 01/15/2014 Inactive (Appended: Controlled substance eRx refill - RxReferenceNumber: [id number]) Ambien 10 mg tablet RxNorm: 823104 Tablet(s) PO TAKE ONE TABLET BY MOUTH EVERY DAY AT BEDTIME NEEDED 08/31/2013 07/31/2014 Inactive (Appended: Controlled substance eRx refill - RxReferenceNumber: [id number]) Ambien 10 mg tablet RxNorm: 462629 Tablet(s) PO TAKE ONE TABLET BY MOUTH EVERY DAY AT BEDTIME NEEDED 08/31/2013 08/30/2013 Inactive (Appended: Controlled substance eRx refill - RxReferenceNumber: [id number]) Xanax 0.25 mg tablet RxNorm: 645178 Tablet(s) PO TAKE ONE TABLET BY MOUTH EVERY 8 HOURS NEEDED FOR ANXIETY 07/21/2013 11/21/2013 Inactive (Appended: Controlled substance eRx refill - RxReferenceNumber: [id number]) Xanax 0.25 mg tablet RxNorm: 187994 Tablet(s) PO TAKE ONE TABLET BY MOUTH EVERY 8 HOURS NEEDED FOR ANXIETY 07/19/2013 07/21/2013 Inactive (Appended: Controlled substance eRx refill - RxReferenceNumber: [id number]) omeprazole 20 mg capsule,delayed release RxNorm: 778898 Capsule(s) PO TAKE ONE CAPSULE BY MOUTH EVERY DAY 05/23/2013 04/23/2014 Inactive Flagyl 500 mg tablet RxNorm: 240626 1 Tablet(s) PO BID 02/21/2013 02/20/2013 Inactive Flagyl 500 mg tablet RxNorm: 528098 1 Tablet(s) PO BID 02/21/2013 02/27/2013 Inactive fluconazole 150 mg tablet RxNorm: 910739 1 Tablet(s) PO PRN one pill as needed for yeast infection symptoms 02/14/2013 04/23/2014 Inactive Xanax 0.25 mg tablet RxNorm: 639117 Tablet(s) PO TAKE ONE TABLET BY MOUTH EVERY 8 HOURS NEEDED FOR ANXIETY 02/03/2013 11/20/2013 Inactive (Appended: Controlled substance eRx refill - RxReferenceNumber: [id number]) Ambien 10 mg tablet RxNorm: 636473 Tablet(s) PO TAKE ONE TABLET BY MOUTH AT BEDTIME NEEDED 02/03/2013 08/31/2013 Inactive (Appended: Controlled substance eRx refill - RxReferenceNumber: [id number]) Ambien 10 mg tablet RxNorm: 271044 Tablet(s) PO TAKE ONE TABLET BY MOUTH AT BEDTIME NEEDED 02/03/2013 01/10/2015 Inactive (Appended: Controlled substance eRx refill - RxReferenceNumber: [id number]) Xanax 0.25 mg tablet RxNorm: 119812 Tablet(s) PO 02/03/2013 07/20/2013 Inactive TAKE ONE TABLET BY MOUTH EVERY 8 HOURS NEEDED FOR ANXIETY (Appended: Controlled substance eRx refill - RxReferenceNumber: [id number]) Xanax 0.25 mg tablet RxNorm: 517747 Tablet(s) PO TAKE ONE TABLET BY MOUTH EVERY 8 HOURS NEEDED FOR ANXIETY 12/08/2012 02/03/2013 Inactive (Appended: Controlled substance eRx refill - RxReferenceNumber: [id number]) Ambien 10 mg tablet RxNorm: 926046 Tablet(s) PO TAKE ONE TABLET BY MOUTH AT BEDTIME NEEDED 12/08/2012 02/02/2013 Inactive (Appended: Controlled substance eRx refill - RxReferenceNumber: [id number]) Xanax 0.25 mg tablet RxNorm: 369935 Tablet(s) PO TAKE ONE TABLET BY MOUTH EVERY 8 HOURS NEEDED FOR ANXIETY 12/08/2012 12/07/2012 Inactive (Appended: Controlled substance eRx refill - RxReferenceNumber: [id number]) Ambien 10 mg tablet RxNorm: 958141 Tablet(s) PO TAKE ONE TABLET BY MOUTH AT BEDTIME NEEDED 12/08/2012 02/03/2013 Inactive (Appended: Controlled substance eRx refill - RxReferenceNumber: [id number]) Ambien 10 mg tablet RxNorm: 203951 Tablet(s) PO 08/27/2012 12/08/2012 Inactive TAKE ONE TABLET BY MOUTH AT BEDTIME NEEDED (Appended: Controlled substance eRx refill - RxReferenceNumber: [id number]) Xanax 0.25 mg tablet RxNorm: 421828 Tablet(s) PO 08/24/2012 02/02/2013 Inactive TAKE ONE TABLET BY MOUTH EVERY 8 HOURS NEEDED FOR ANXIETY (Appended: Controlled substance eRx refill - RxReferenceNumber: [id number]) Ambien 10 mg tablet RxNorm: 752637 Tablet(s) PO 08/24/2012 08/27/2012 Inactive TAKE ONE TABLET BY MOUTH AT BEDTIME NEEDED (Appended: Controlled substance eRx refill - RxReferenceNumber: [id number]) Xanax 0.25 mg tablet RxNorm: 146746 Tablet(s) PO 08/24/2012 12/08/2012 Inactive TAKE ONE TABLET BY MOUTH EVERY 8 HOURS NEEDED FOR ANXIETY (Appended: Controlled substance eRx refill - RxReferenceNumber: [id number]) Xanax 0.25 mg tablet RxNorm: 996519 1 Tablet(s) PO Q8 PRN 07/09/2012 08/24/2012 Inactive omeprazole 20 mg capsule,delayed release RxNorm: 821313 1 Capsule(s) PO daily 05/19/2012 12/14/2012 Inactive Ambien 10 mg tablet RxNorm: 771471 1 Tablet(s) PO QHS 05/19/2012 08/24/2012 Inactive Xanax 0.25 mg tablet RxNorm: 553913 1 Tablet(s) PO Q8 PRN 03/16/2012 06/13/2012 Inactive Diflucan 150 mg Tab RxNorm: 917600 1 Tablet(s) PO daily 01/05/2012 01/14/2012 Inactive Ambien 10 mg tablet RxNorm: 789523 1 Tablet(s) PO QHS 01/02/2012 04/30/2012 Inactive Ambien 10 mg Tab RxNorm: 246688 1 Tablet(s) PO QHS 12/24/2011 01/01/2012 Inactive Rocephin 500 mg Solution for Injection RxNorm: 416274 1 Milliliter(s) Inj 11/13/2011 11/13/2011 Inactive omeprazole 20 mg capsule,delayed release RxNorm: 549812 1 Capsule(s) PO daily 10/07/2011 05/18/2012 Inactive omeprazole 20 mg Cap, Delayed Release RxNorm: 753185 1 Capsule(s) PO daily 10/07/2011 04/03/2012 Inactive Ambien 5 mg Tab RxNorm: 125024 1 Tablet(s) PO QHS 1 tab q hs prn insomnia 10/07/2011 12/23/2011 Inactive Xanax 0.25 mg Tab RxNorm: 409657 1 Tablet(s) PO Q8 PRN 09/29/2011 03/15/2012 Inactive Medication Administered Medication Codes Instructions Start Date Status Rocephin 500 mg Solution for Injection RxNorm: 270714 1Milliliter 11/13/2011 No longer Active Immunizations Vaccine [...] Item Item Code Result Date GC/CHL PRB 8516384 CHLM PROBE NEG 04/26/2014 GC/CHL PRB 3455877 GC PROBE NEG 04/26/2014 TSH 8908344 TSH 2.977 uIU/ML 02/16/2013 GC/CHL PRB 3868911 SOURCE KIMBERLYN UNKNOWN 02/15/2013 GC/CHL PRB 2847165 CHLM PROBE NEG 02/15/2013 GC/CHL PRB 9113037 GC PROBE NEG 02/15/2013 CHEM 14 3119468 AST 12 U/L 02/15/2013 CHEM 14 8816482 ALT 16 IU/L 02/15/2013 CHEM 14 6851867 BUN 13 MG/DL 02/15/2013 CHEM 14 5487300 ALBUMIN 4.6 GM/DL 02/15/2013 CHEM 14 2992898 CHLORIDE 104 MMOL/L 02/15/2013 CHEM 14 0149946 BILI TOT 0.5 MG/DL 02/15/2013 CHEM 14 0057345 ALK PHOS 55 U/L 02/15/2013 CHEM 14 0364387 SODIUM 137 MMOL/L 02/15/2013 CHEM 14 9244385 CREATININE 0.79 MG/DL 02/15/2013 CHEM 14 8262492 CALCIUM 9.3 MG/DL 02/15/2013 CHEM 14 7573364 POTASSIUM 4.0 MMOL/L 02/15/2013 CHEM 14 7193432 PROT TOT 6.9 GM/DL 02/15/2013 CHEM 14 2352556 GLUCOSE 99 MG/DL 02/15/2013 CHEM 14 2445769 BICARB 29 MMOL/L 02/15/2013 CHEM 14 1626525 ANION GAP 4 MEQ/L 02/15/2013 GFR CALC 5524033 GFR AA >60 ML/MIN 02/15/2013 GFR CALC 8049112 GFR NON-AA >60 ML/MIN 02/15/2013 LIPID GRP HDL TEST 38 MG/DL 02/15/2013 LIPID GRP TRIG 126 MG/DL 02/15/2013 LIPID GRP TEST LDL 112 MG/DL 02/15/2013 LIPID GRP CHOL 175 MG/DL 02/15/2013 LIPID GRP RCHOL/HDL 4.61 RATIO 02/15/2013 CBC 6278224 WBC 5.8 10e9/L 02/15/2013 CBC 4979233 RBC 4.51 10e12/L 02/15/2013 CBC 0481531 HGB 13.8 g/dL 02/15/2013 CBC 3317835 HCT DET 39.0 % 02/15/2013 CBC 9458970 MCV 86.5 fL 02/15/2013 CBC 7862262 MCH 30.6 pg 02/15/2013 CBC 2692994 MCHC 35.4 g/dL 02/15/2013 CBC 0466139 PLT 284 10e9/L 02/15/2013 CBC 6268549 MPV 10.3 fL 02/15/2013 CBC 1344787 BLANQUITA % 62.9 % 02/15/2013 CBC 3035402 LY % 26.8 % 02/15/2013 CBC 0651080 MON % 9.1 % 02/15/2013 CBC 9023854 EOS % 1.2 % 02/15/2013 CBC 0981010 BASO % 0.0 % 02/15/2013 CBC 5636172 RDW 14.4 % 02/15/2013 CBC 0483978 ABS BLANQUITA 3.65 10e9/L 02/15/2013 CBC 3852754 ABS LYMPH 1.55 10e9/L 02/15/2013 CBC 3180714 ABS MONO 0.53 10e9/L 02/15/2013 CBC 3430210 ABS EOS 0.07 10e9/L 02/15/2013 CBC 4832854 ABS BASO 0.00 10e9/L 02/15/2013 CBC 8900223 RDW-SD 44.0 fL 02/15/2013 Review of Systems [...] PROBE (CHYLMD TRACH DNA AMP PROBE) CPT-4: 62975 04/24/2014 GC PROBE (N.GONORRHOEAE DNA AMP PROB) CPT-4: 56817 04/24/2014 ROUTINE VENIPUNCTURE CPT- 4: 57295 02/15/2013 PREV VISIT EST AGE 40-64 CPT-4: 71455 01/05/2012 ROCEPHIN, PER 250 MG CPT- 4: J0696 11/13/2011 THER/PROPH/DIAG INJ SC/IM CPT-4: 94205 11/13/2011 REMOVE IMPACTED EAR WAX UNI CPT-4: 82733 11/13/2011 Vital Signs Date Vital 10/26/2018 Blood Pressure 1: 140/76 Code: 8480-6 BMI: 31.5 Code: 64991-5 Heart Rate 1: 79 bpm Height: 5'8" SpO2: 98% Weight: 207 lbs 02/22/2018 Blood Pressure 1: 132/70 Code: 8480-6 BMI: 33.1 Code: 02338-3 Heart Rate 1: 75 bpm Height: 5'8" SpO2: 97% Weight: 218 lbs 01/21/2018 Blood Pressure 1: 122/78 Code: 8480-6 Heart Rate 1: 73 bpm Height: 5'8" SpO2: 98% Weight: 09/01/2017 Blood Pressure 1: 134/82 Code: 8480-6 Heart Rate 1: 80 bpm Height: SpO2: 98% Weight: 06/18/2017 Blood Pressure 1: 122/76 Code: 8480-6 BMI: 30.7 Code: 35265-0 Heart Rate 1: 78 bpm Height: 5'8" SpO2: 98% Weight: 202 lbs 02/19/2017 Blood Pressure 1: 132/70 Code: 8480-6 BMI: 30.1 Code: 57588-6 Heart Rate 1: 72 bpm Height: 5'8" SpO2: 98% Weight: 198 lbs 02/05/2017 Blood Pressure 1: 124/84 Code: 8480-6 BMI: 29.3 Code: 27029-5 Heart Rate 1: 98 bpm Height: 5'8" SpO2: 98% Weight: 193 lbs 11/20/2016 Blood Pressure 1: 130/86 Code: 8480-6 BMI: 30.0 Code: 90672-6 Heart Rate 1: 90 bpm Height: 5'8" SpO2: 99% Weight: 197 lbs 09/26/2016 Blood Pressure 1: 124/84 Code: 8480-6 Heart Rate 1: 74 bpm SpO2: 97% Weight: 203 lbs 08/25/2016 Blood Pressure 1: 124/86 Code: 8480-6 BMI: 31.0 Code: 56942-9 Heart Rate 1: 90 bpm Height: 5'8" SpO2: 95% Weight: 204 lbs 12/13/2015 Blood Pressure 1: 112/80 Code: 8480-6 BMI: 31.5 Code: 31531-2 Heart Rate 1: 87 bpm Height: 5'8" SpO2: 97% Weight: 207 lbs 11/15/2015 Blood Pressure 1: 146/78 Code: 8480-6 BMI: 32.1 Code: 14718-4 Heart Rate 1: 96 bpm Height: 5'8" SpO2: 97% Weight: 211 lbs 06/28/2015 Blood Pressure 1: 132/64 Code: 8480-6 BMI: 29.5 Code: 46316-2 Heart Rate 1: 91 bpm Height: 5'8" SpO2: 98% Weight: 194 lbs 05/23/2014 Blood Pressure 1: 124/80 Code: 8480-6 BMI: 30.3 Code: 20044-1 Heart Rate 1: 68 bpm Height: 5'8" Weight: 199 lbs 04/24/2014 Blood Pressure 1: 132/72 Code: 8480-6 BMI: 30.7 Code: 65848-7 Heart Rate 1: 82 bpm Height: 5'8" SpO2: 98% Weight: 202 lbs 02/14/2013 Blood Pressure 1: 122/80 Code: 8480-6 BMI: 28.6 Code: 04323-7 Heart Rate 1: 84 bpm Height: 5'8" Respiratory Rate: 16 bpm Weight: 188 lbs 02/16/2012 Blood Pressure 1: 104/66 Code: 8480-6 BMI: 28.5 Code: 53989-4 Heart Rate 1: 76 bpm Height: 5'7" Weight: 182 lbs 01/05/2012 Blood Pressure 1: 100/64 Code: 8480-6 BMI: 28.7 Code: 68204-9 Heart Rate 1: 78 bpm Height: 5'7" Respiratory Rate: 16 bpm Weight: 183 lbs 11/13/2011 Blood Pressure 1: 116/78 Code: 8480-6 Heart Rate 1: 84 bpm Respiratory Rate: 16 bpm SpO2: 98% Temperature: 36.7 (C) / 98.1 (F) Weight: 181 lbs 09/29/2011 Blood Pressure 1: 118/82 Code: 8480-6 BMI: 36.8 Code: 20611-0 Heart Rate 1: 72 bpm Height: 4'10" [...] the day. 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 PATIENT, LEVEL III Diagnosis: Excessive and frequent menstruation with regular cycle[ICD10: N92.0] Maylin Jain MD, [facility] CPT-4: 04531 02/22/2018 ([id number]) 93628 EST. PATIENT, LEVEL III Diagnosis: Gastro-esophageal reflux disease with esophagitis[ICD10: K21.0] Unique Jain MD, [facility] CPT-4: 46614 01/21/2018 83031 EST. PATIENT, LEVEL III Diagnosis: Pain in left leg[ICD10: M79.605] Maylin Jain MD, [facility] CPT-4: 80935 09/01/2017 ([id number]) 09011 EST. PATIENT, LEVEL III Diagnosis: Generalized anxiety disorder[ICD10: F41.1] [facility] CPT-4: 23152 06/18/2017 97528 EST. PATIENT, LEVEL IV Diagnosis: Pain in left shoulder[ICD10: M25.512] Diagnosis: Pain in right shoulder[ICD10: M25.511] Maylin Jain MD, [facility] CPT- 4: 85070 02/19/2017 ([id number]) PREV VISIT EST AGE 40-64 Diagnosis: Encounter for gynecological examination (general) (routine) without abnormal findings[ICD10: Z01.419] Bianca Jain MD, [facility] CPT-4: 45572 02/05/2017 ([id number]) 36391 EST. PATIENT, LEVEL III Diagnosis: Generalized anxiety disorder[ICD10: F41.1] Diagnosis: Other obesity due to excess calories[ICD10: E66.09] Bianca Jain MD, [facility] CPT-4: 62636 11/20/2016 ([id number]) Miscellaneous no charge Diagnosis: Other obesity due to excess calories[ICD10: E66.09] Maylin Jain MD, [facility] CPT-4: 92785 09/26/2016 ([id number]) 72908 EST. PATIENT, LEVEL IV Diagnosis: Generalized anxiety disorder[ICD10: F41.1] Diagnosis: Adjustment insomnia[ICD10: F51.02] Diagnosis: Other obesity due to excess calories[ICD10: E66.09] Unique Jain MD, [facility] CPT-4: 71726 08/25/2016 23805 EST. PATIENT, LEVEL IV Diagnosis: Dizziness and giddiness[ICD10: R42] Maylin Jain MD, [facility] CPT- 4: 49802 12/13/2015 88405 EST. PATIENT, LEVEL IV Diagnosis: Dizziness and giddiness[ICD10: R42] Diagnosis: Other chest pain[ICD10: R07.89] Maylin Jain MD, [facility] CPT-4: 63039 11/15/2015 ([id number]) 04005 EST. PATIENT, LEVEL III Diagnosis: GENERALIZED ANXIETY DISEASE[ICD9: 300.02] Diagnosis: Migraines[ICD9: 346.90] Unique Jain MD, [facility] CPT-4: 43220 06/28/2015 ([id number]) 96517 EST. PATIENT, LEVEL III Diagnosis: Right ankle pain[ICD9: 719.47] Diagnosis: Right ankle sprain[ICD9: 845.00] Unique Jain MD, [facility] CPT- 4: 25833 05/23/2014 ([id number]) PREV VISIT EST AGE 40-64 Diagnosis: ROUTINE GYNE EXAM[ICD9: V72.31] Diagnosis: Laboratory exam ordered as part of routine general medical examination[ICD9: V72.62] [facility] CPT-4: 14094 04/24/2014 ([id number]) PREV VISIT EST AGE 40-64 Diagnosis: Well woman exam with routine gynecological exam[ICD9: V72.31] [facility] CPT-4: 24345 02/14/2013 43761 EST. PATIENT, LEVEL IV Diagnosis: Numbness in both legs[ICD9: 782.0] Diagnosis: Myalgia[ICD9: 729.1] [facility] CPT-4: 27930 02/16/2012 ([id number]) 09221 EST. PATIENT, LEVEL IV Diagnosis: Acute maxillary sinusitis[ICD9: 461.0] Diagnosis: Cough[ICD9: 786.2] Diagnosis: Cerumen impaction[ICD9: 380.4] [facility] CPT-4: 97644 11/13/2011 ([id number]) OFFICE VISIT, NEW - LEVEL 3 Diagnosis: GENERALIZED ANXIETY DISEASE[ICD9: 300.02] Diagnosis: DEPRESSIVE DISORDER NEC[ICD9: 311] Diagnosis: Impacted cerumen[ICD9: 380.4] Diagnosis: HEARING LOSS[ICD9: 389.9] [facility] CPT-4: 93387 09/29/2011 Plan of Care Planned Activity Notes [...] renal functioning. 10/26/2018 Appointment: Bianca Jain WPtel: [address] [place], [place] [id number] (15 min) Moderate 10/26/2018 Patient Education: Patient Medication Summary Completed 10/26/2018 Care Plan: Cbc With Differential Cancelled 02/23/2018 Care Plan: Bhcg Qual Cancelled 02/23/2018 Care Plan: Referral Order SNOMED-CT : [id number] Pending 02/23/2018 Visit Plan: Excessive menstrual bleeding and irregular menstruation - pt would like to be referred to OB and would like to know about a possible hysterectomy - will refer - pt is to notify clinic if symptoms do not improve, if they worsen, or with any changes, questions, or concerns. 02/22/2018 Appointment: Maylin Chowdhury WPtel: [facility] (15 min) Moderate 02/22/2018 Patient Education: Patient [...] Maylin Chowdhury WPtel: [facility] [place] (30 min) Complex 09/01/2017 Patient Education: Patient Medication Summary Completed 09/01/2017 Appointment: Bianca Jain WPtel: [facility] (15 min) Moderate 07/29/2017 Visit Plan: Chronic [...] Maylin Chowdhury WPtel: [facility] [place] (15 min) Moderate 02/19/2017 Patient Education: Patient [...] PAP Pending 02/05/2017 Appointment: Bianca Jain WPtel: [address] [place], [place] [id number] 01/22/2017 Visit Plan: Obesity - chronic issue with this patient. The pt has been counseled about diet changes, calorie restriction, and need to exercise. Pt will RTC in one month for weight check. Anxiety - refill anxiolytic 11/20/2016 Appointment: Bianca Jain WPtel: [facility] 11/20/2016 Patient Education: Patient Medication [...] situational exposure. No change in current medications. Zohshqoa-rwhfcqgnlv-ttqhle ambien for prn use Obesity - chronic [...] situational exposure. No change in current medications. Otvhtoxk-gtaqicpbka-mbmryx ambien for prn use Obesity - chronic issue with this patient. The pt has been counseled about diet changes, calorie restriction, and need to exercise. Pt will RTC in one month for weight check. 08/25/2016 Appointment: Dion[facility] [facility] [phone] [place] (15 min) Moderate 08/25/2016 Patient Education: Patient [...] pt consult with Dr. Shun Harrison at [facility]. Migraine headaches - start on topamax. 04/24/2014 Appointment: Bianca Jain WPtel: [facility] [place] Pap Only 04/24/2014 Patient Education: Patient Medication Summary Completed 04/24/2014 Care Plan: PAP Pending 04/24/2014 Appointment: Unique Nichole WPtel: [phone] Other 05/31/2013 Patient Education: Patient Medication Summary [...] Summary Completed 02/14/2013 Appointment: Bianca Jain WPtel[facility] [place] [facility] Only 01/31/2013 Appointment: Unique Nichole WPtel: [address] [place], [place] [phone] Other 09/13/2012 Visit Plan: Numbness-bilateral lower qmg-wurpzkno-udzw to check labs including chem panel to evaluate electrolytes as well as blood sugar, cbc, and b12 level. Recommend patient start on a multivitamin daily and drink plenty of fluids. Will call patient with labs results. Instructed patient to call with any concerns or worsening symptoms. Patient verbalized understanding of plan. 02/16/2012 Appointment: Unique Nichole WPtel: [phone] [phone] Other 02/16/2012 Patient Education: Patient Medication Summary [...] cancer. 01/05/2012 Appointment: Bianca Jain WPtel: [phone] [facility] Pap Only 01/05/2012 Patient Education: Patient [...] not improved. 11/13/2011 Appointment: Bianca Jain WPtel: [facility] [place] Other 11/13/2011 Patient Education: Patient [...] process. 09/29/2011 App[facility]ment: [facility] [phone] [facility] [facility] 09/29/2011 Patient Education: Patient Medication [...] situational exposure. No change in current medications. Afmmskwd-sxyloraooj-aptvlj ambien for prn use Obesity - chronic [...] situational exposure. No change in current medications. Epihodbk-dwncnszxqp-lxvxyh ambien for prn use Obesity - chronic [...] symptoms worsen, or with any other concerns. [facility] shun harrison and saritha quick [...] pt consult with Dr. Shun Harrison at [facility]. Migraine headaches - start on topamax. Check labs-cbc, cmp, b12 level. . Numbness-bilateral lower lyv-lifzbosl-qjwm to check labs including chem panel to [...]
--- OUTSIDE RECORDS SUMMARY | 2019-03-03 06:48 | XMS REPORT | CCD ---
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 Name Role Phone Bianca Jain PP Unavailable CCM Unavailable Summary Purpose Interface Exchange Insurance Providers Payer name Policy type / Coverage type Covered republican ID Effective Begin Date Effective End Date [employer] Insurance [id number] 2018 Unknown Family history Brother Diagnosis Age [...] Effective Dates Employment Unknown Currently employed Via [employer] 11/15/2018 Marital status Unknown 01/05/[address]: 653223616 Never smoker 09/29/[address]: 493576 Currently drinks alcohol 3 weekly 09/29/2011 Has [...] Fill Instructions amitriptyline 50 mg tablet RxNorm: 373095 1 Tablet(s) PO QHS 12/01/2018 01/29/2019 Active dc ambien amitriptyline 25 mg tablet RxNorm: 886733 1 Tablet(s) PO QHS 11/15/2018 11/30/2018 Inactive dc ambien amitriptyline 25 mg tablet RxNorm: 173470 1 Tablet(s) PO QHS 11/15/2018 11/14/2018 Inactive dc ambien atorvastatin 20 mg tablet RxNorm: 128155 1 Tablet(s) PO daily 11/04/2018 03/03/2019 Active atorvastatin 20 mg tablet RxNorm: 149933 1 Tablet(s) PO daily 11/04/2018 11/03/2018 Inactive topiramate 25 mg tablet RxNorm: 974106 TAKE 1 TABLET BY MOUTH TWICE DAILY 10/26/2018 No Stop Date Active Xanax 0.5 mg tablet RxNorm: 809487 1 Tablet(s) PO Q8 as needed anxiety 10/26/2018 11/24/2018 Inactive Ambien 10 mg tablet RxNorm: 921781 Tablet(s) TAKE ONE TABLET BY MOUTH AT BEDTIME NEEDED 10/26/2018 11/14/2018 Inactive Xanax 0.5 mg tablet RxNorm: 496176 Tablet(s) TAKE ONE TABLET BY MOUTH EVERY 8 HOURS NEEDED FOR ANXIETY 08/27/2018 10/24/2018 Inactive Ambien 10 mg tablet RxNorm: 293631 Tablet(s) TAKE ONE TABLET BY MOUTH AT BEDTIME NEEDED 08/27/2018 11/14/2018 Inactive Ambien 10 mg tablet RxNorm: 706273 Tablet(s) TAKE ONE TABLET BY MOUTH AT BEDTIME NEEDED 07/29/2018 08/26/2018 Inactive Lexapro 10 mg tablet RxNorm: 115262 TAKE 1 TABLET BY MOUTH IN THE EVENING 07/27/2018 No Stop Date Active Xanax 0.5 mg tablet RxNorm: 781067 1 Tablet(s) PO Q8 as needed anxiety 06/18/2018 09/15/2018 Inactive Xanax 0.5 mg tablet RxNorm: 982032 Tablet(s) TAKE ONE TABLET BY MOUTH EVERY 8 HOURS NEEDED FOR ANXIETY 06/18/2018 08/15/2018 Inactive Ambien 10 mg tablet RxNorm: 485786 1 Tablet(s) PO HS PRN TAKE ONE TABLET BY MOUTH AT BEDTIME NEEDED 05/20/2018 10/25/2018 Inactive topiramate 25 mg tablet RxNorm: 823408 TAKE ONE TABLET BY MOUTH TWICE DAILY 04/21/2018 10/25/2018 Inactive Xanax 0.5 mg tablet RxNorm: 138803 1 Tablet(s) PO Q8 as needed anxiety 03/24/2018 06/17/2018 Inactive Ambien 10 mg tablet RxNorm: 252318 1 Tablet(s) PO HS PRN TAKE ONE TABLET BY MOUTH AT BEDTIME NEEDED 02/22/2018 05/19/2018 Inactive naproxen 500 mg tablet RxNorm: 086589 1 Tablet(s) PO BID 02/22/2018 02/26/2018 Inactive Ambien 10 mg tablet RxNorm: 417513 TAKE ONE TABLET BY MOUTH AT BEDTIME NEEDED 02/19/2018 07/28/2018 Inactive Dexilant 60 mg capsule, delayed release RxNorm: 289979 1 Capsule(s) PO daily 01/21/2018 No Stop Date Active Xanax 0.5 mg tablet RxNorm: 640273 Tablet(s) TAKE ONE TABLET BY MOUTH EVERY 8 HOURS NEEDED FOR ANXIETY 01/19/2018 03/17/2018 Inactive Lexapro 10 mg tablet RxNorm: 391519 TAKE ONE TABLET BY MOUTH IN THE EVENING 01/18/2018 07/26/2018 Inactive Xanax 0.5 mg tablet RxNorm: 220544 1 Tablet(s) PO Q8 PRN TAKE ONE TABLET BY MOUTH EVERY 8 HOURS NEEDED FOR ANXIETY 12/17/2017 01/14/2018 Inactive topiramate 25 mg tablet RxNorm: 561954 TAKE ONE TABLET BY MOUTH TWICE DAILY 10/13/2017 04/20/2018 Inactive K-Dur 10 mEq tablet,extended release RxNorm: 125433 1 Tablet(s) PO daily 09/11/2017 09/11/2017 Inactive potassium chloride ER 10 mEq tablet,extended release RxNorm: 433213 1 Tablet(s) PO daily 09/11/2017 09/10/2017 Inactive Lasix 20 mg tablet RxNorm: 512663 1 Tablet(s) PO daily for three days 09/11/2017 09/10/2017 Inactive potassium chloride ER 10 mEq tablet,extended release RxNorm: 460073 1 Tablet(s) PO daily 09/11/2017 09/13/2017 Inactive Lasix 20 mg tablet RxNorm: 735062 1 Tablet(s) PO daily for three days 09/11/2017 09/13/2017 Inactive naproxen 500 mg tablet RxNorm: 156328 1 Tablet(s) PO BID 09/01/2017 09/05/2017 Inactive Ambien 10 mg tablet RxNorm: 227136 1 Tablet(s) PO HS PRN TAKE ONE TABLET BY MOUTH AT BEDTIME NEEDED 08/14/2017 02/22/2018 Inactive Xanax 0.5 mg tablet RxNorm: 995488 1 Tablet(s) PO Q8 PRN TAKE ONE TABLET BY MOUTH EVERY 8 HOURS NEEDED FOR ANXIETY 08/14/2017 01/18/2018 Inactive Lexapro 10 mg tablet RxNorm: 187938 TAKE ONE TABLET BY MOUTH IN THE EVENING 07/13/2017 01/08/2018 Inactive Xanax 0.5 mg tablet RxNorm: 382949 1 Tablet(s) PO Q8 PRN TAKE ONE TABLET BY MOUTH EVERY 8 HOURS NEEDED FOR ANXIETY 06/18/2017 07/16/2017 Inactive Xanax 0.25 mg tablet RxNorm: 612716 Tablet(s) TAKE ONE TABLET BY MOUTH EVERY 8 HOURS NEEDED FOR ANXIETY 06/17/2017 06/17/2017 Inactive Ambien 10 mg tablet RxNorm: 884625 1 Tablet(s) PO QHS as needed insomnia 06/17/2017 08/17/2017 Inactive topiramate 25 mg tablet RxNorm: 619414 TAKE ONE TABLET BY MOUTH TWICE DAILY 06/16/2017 10/12/2017 Inactive Lexapro 10 mg tablet RxNorm: 891351 TAKE ONE TABLET BY MOUTH IN THE EVENING 04/17/2017 07/12/2017 Inactive Ambien 10 mg tablet RxNorm: 612100 1 Tablet(s) PO QHS as needed insomnia 04/17/2017 01/18/2018 Inactive Xanax 0.25 mg tablet RxNorm: 152377 Tablet(s) TAKE ONE TABLET BY MOUTH EVERY 8 HOURS NEEDED FOR ANXIETY 04/17/2017 06/13/2017 Inactive topiramate 25 mg tablet RxNorm: 492926 TAKE ONE TABLET BY MOUTH TWICE DAILY 03/20/2017 06/15/2017 Inactive Flagyl 500 mg tablet RxNorm: 900073 1 Tablet(s) PO TID do not drink alcohol when taking this medication 02/05/2017 02/09/2017 Inactive Ambien 10 mg tablet RxNorm: 201207 1 Tablet(s) PO QHS as needed insomnia 01/23/2017 04/21/2017 Inactive Xanax 0.25 mg tablet RxNorm: 382698 TAKE ONE TABLET BY MOUTH EVERY 8 HOURS NEEDED FOR ANXIETY 01/23/2017 04/21/2017 Inactive Xanax 0.25 mg tablet RxNorm: 772168 1 Tablet(s) PO TAKE ONE TABLET BY MOUTH EVERY 8 HOURS NEEDED FOR ANXIETY 11/28/2016 01/18/2018 Inactive Lexapro 10 mg tablet RxNorm: 367856 1 Tablet(s) PO QPM 11/20/2016 04/16/2017 Inactive topiramate 25 mg tablet RxNorm: 300718 1 Tablet(s) PO BID start one pill at hs, if migraines not improving, then increase to bid 11/20/2016 01/18/2018 Inactive Ambien 10 mg tablet RxNorm: 415045 1 Tablet(s) PO QHS as needed TAKE ONE TABLET BY MOUTH AT BEDTIME NEEDED FOR INSOMNIA 10/31/2016 01/18/2018 Inactive acyclovir 400 mg tablet RxNorm: 481389 1 Tablet(s) PO TID 10/01/2016 10/05/2016 Inactive acyclovir 400 mg tablet RxNorm: 463366 1 Tablet(s) PO TID 10/01/2016 09/30/2016 Inactive phentermine 37.5 mg tablet RxNorm: 035889 1 Tablet(s) PO daily 09/26/2016 02/04/2017 Inactive Xanax 0.25 mg tablet RxNorm: 718974 Tablet(s) TAKE ONE TABLET BY MOUTH EVERY 8 HOURS NEEDED FOR ANXIETY 08/25/2016 01/18/2018 Inactive Ambien 10 mg tablet RxNorm: 835093 1 Tablet(s) PO daily as needed TAKE ONE TABLET BY MOUTH AT BEDTIME NEEDED FOR INSOMNIA 08/25/2016 11/19/2016 Inactive phentermine 37.5 mg tablet RxNorm: 203401 1 Tablet(s) PO daily 08/25/2016 09/25/2016 Inactive topiramate 25 mg tablet RxNorm: 768508 TAKE ONE TABLET BY MOUTH TWICE DAILY 07/09/2016 08/24/2016 Inactive Xanax 0.25 mg tablet RxNorm: 804331 Tablet(s) TAKE ONE TABLET BY MOUTH EVERY 8 HOURS NEEDED FOR ANXIETY 04/28/2016 06/25/2016 Inactive Ambien 10 mg tablet RxNorm: 585438 1 Tablet(s) PO daily as needed TAKE ONE TABLET BY MOUTH AT BEDTIME NEEDED FOR INSOMNIA 04/28/2016 06/24/2016 Inactive topiramate 25 mg tablet RxNorm: 710844 1 Tablet(s) PO BID 02/20/2016 06/18/2016 Inactive Ambien 10 mg tablet RxNorm: 351537 1 Tablet(s) PO daily as needed TAKE ONE TABLET BY MOUTH AT BEDTIME NEEDED FOR INSOMNIA 01/03/2016 03/31/2016 Inactive (Response to an electronic controlled substance refill request - RxReferenceNumber: [id number]) Xanax 0.25 mg tablet RxNorm: 136090 Tablet(s) TAKE ONE TABLET BY MOUTH EVERY 8 HOURS NEEDED FOR ANXIETY 01/03/2016 01/18/2018 Inactive (Response to an electronic controlled substance refill request - RxReferenceNumber: [id number]) meclizine 25 mg tablet RxNorm: 688179 1 Tablet(s) PO QID 12/13/2015 01/11/2016 Inactive Xanax 0.25 mg tablet RxNorm: 026724 Tablet(s) TAKE ONE TABLET BY MOUTH EVERY 8 HOURS NEEDED FOR ANXIETY 11/23/2015 01/18/2018 Inactive (Response to an electronic controlled substance refill request - RxReferenceNumber: [id number]) topiramate 25 mg tablet RxNorm: 051635 1 Tablet(s) PO BID 11/02/2015 12/12/2015 Inactive pt needs to make an appt Ambien 10 mg tablet RxNorm: 754910 1 Tablet(s) PO daily as needed TAKE ONE TABLET BY MOUTH AT BEDTIME NEEDED FOR INSOMNIA 10/30/2015 11/19/2016 Inactive (Response to an electronic controlled substance refill request - RxReferenceNumber: [id number]) Xanax 0.25 mg tablet RxNorm: 338796 Tablet(s) TAKE ONE TABLET BY MOUTH EVERY 8 HOURS NEEDED FOR ANXIETY 09/20/2015 10/18/2015 Inactive (Response to an electronic controlled substance refill request - RxReferenceNumber: [id number]) Xanax 0.25 mg tablet RxNorm: 264749 Tablet(s) TAKE ONE TABLET BY MOUTH EVERY 8 HOURS NEEDED FOR ANXIETY 06/28/2015 08/25/2015 Inactive (Response to an electronic controlled substance refill request - RxReferenceNumber: [id number]) topiramate 25 mg tablet RxNorm: 398111 1 Tablet(s) PO BID 06/27/2015 10/24/2015 Inactive Ambien 10 mg tablet RxNorm: 715214 1 Tablet(s) PO daily as needed TAKE ONE TABLET BY MOUTH AT BEDTIME NEEDED FOR INSOMNIA 06/26/2015 09/23/2015 Inactive (Response to an electronic controlled substance refill request - RxReferenceNumber: [id number]) Xanax 0.25 mg tablet RxNorm: 694328 Tablet(s) TAKE ONE TABLET BY MOUTH EVERY 8 HOURS NEEDED FOR ANXIETY 04/04/2015 06/02/2015 Inactive (Response to an electronic controlled substance refill request - RxReferenceNumber: [id number]) Ambien 10 mg tablet RxNorm: 778752 1 Tablet(s) PO daily as needed TAKE ONE TABLET BY MOUTH AT BEDTIME NEEDED FOR INSOMNIA 02/16/2015 05/16/2015 Inactive (Response to an electronic controlled substance refill request - RxReferenceNumber: [id number]) Ambien 10 mg tablet RxNorm: 851309 TAKE ONE TABLET BY MOUTH AT BEDTIME NEEDED FOR INSOMNIA 01/11/2015 02/09/2015 Inactive (Response to an electronic controlled substance refill request - RxReferenceNumber: [id number]) Ambien 10 mg tablet RxNorm: 628261 1 Tablet(s) PO QHS as needed TAKE ONE TABLET BY MOUTH AT BEDTIME NEEDED 01/11/2015 01/11/2015 Inactive (Appended: Controlled substance eRx refill - RxReferenceNumber: [id number]) topiramate 25 mg tablet RxNorm: 630628 1 Tablet(s) PO BID 01/11/2015 05/10/2015 Inactive Xanax 0.25 mg tablet RxNorm: 649279 TAKE ONE TABLET BY MOUTH EVERY 8 HOURS NEEDED FOR ANXIETY 01/11/2015 02/09/2015 Inactive (Response to an electronic controlled substance refill request - RxReferenceNumber: [id number]) Xanax 0.25 mg tablet RxNorm: 440398 Tablet(s) TAKE ONE TABLET BY MOUTH EVERY 8 HOURS NEEDED FOR ANXIETY 01/11/2015 01/11/2015 Inactive (Response to an electronic controlled substance refill request - RxReferenceNumber: [id number]) Xanax 0.25 mg tablet RxNorm: 615631 Tablet(s) TAKE ONE TABLET BY MOUTH EVERY 8 HOURS NEEDED FOR ANXIETY 11/20/2014 12/17/2014 Inactive (Response to an electronic controlled substance refill request - RxReferenceNumber: [id number]) Xanax 0.25 mg tablet RxNorm: 121762 TAKE ONE TABLET BY MOUTH EVERY 8 HOURS NEEDED FOR ANXIETY 09/14/2014 10/13/2014 Inactive (Response to an electronic controlled substance refill request - RxReferenceNumber: [id number]) Xanax 0.25 mg tablet RxNorm: 649498 Tablet(s) PO TAKE ONE TABLET BY MOUTH EVERY 8 HOURS NEEDED FOR ANXIETY 09/12/2014 09/15/2014 Inactive (Appended: Controlled substance eRx refill - RxReferenceNumber: [id number]) Xanax 0.25 mg tablet RxNorm: 959852 TAKE ONE TABLET BY MOUTH EVERY 8 HOURS NEEDED FOR ANXIETY 07/31/2014 07/31/2014 Inactive (Response to an electronic controlled substance refill request - RxReferenceNumber: [id number]) Ambien 10 mg tablet RxNorm: 878069 TAKE ONE TABLET BY MOUTH AT BEDTIME NEEDED FOR INSOMNIA 07/31/2014 11/19/2016 Inactive (Response to an electronic controlled substance refill request - RxReferenceNumber: [id number]) Xanax 0.25 mg tablet RxNorm: 721192 TAKE ONE TABLET BY MOUTH EVERY 8 HOURS NEEDED FOR ANXIETY 07/31/2014 08/29/2014 Inactive (Response to an electronic controlled substance refill request - RxReferenceNumber: [id number]) metronidazole 500 mg tablet RxNorm: 205383 1 Tablet(s) PO TID 05/25/2014 05/31/2014 Inactive Diflucan 150 mg tablet RxNorm: 217357 1 Tablet(s) PO daily 05/25/2014 05/29/2014 Inactive topiramate 25 mg tablet RxNorm: 549469 1 Tablet(s) PO BID 04/24/2014 11/19/2014 Inactive Xanax 0.25 mg tablet RxNorm: 487766 Tablet(s) PO TAKE ONE TABLET BY MOUTH EVERY 8 HOURS NEEDED FOR ANXIETY 01/17/2014 07/31/2014 Inactive (Appended: Controlled substance eRx refill - RxReferenceNumber: [id number]) Xanax 0.25 mg tablet RxNorm: 484929 Tablet(s) PO TAKE ONE TABLET BY MOUTH EVERY 8 HOURS NEEDED FOR ANXIETY 01/16/2014 01/17/2014 Inactive (Appended: Controlled substance eRx refill - RxReferenceNumber: [id number]) Xanax 0.25 mg tablet RxNorm: 408814 Tablet(s) PO TAKE ONE TABLET BY MOUTH EVERY 8 HOURS NEEDED FOR ANXIETY 01/13/2014 09/11/2014 Inactive (Appended: Controlled substance eRx refill - RxReferenceNumber: [id number]) Xanax 0.25 mg tablet RxNorm: 164585 Tablet(s) PO TAKE ONE TABLET BY MOUTH EVERY 8 HOURS NEEDED FOR ANXIETY 11/21/2013 01/16/2014 Inactive (Appended: Controlled substance eRx refill - RxReferenceNumber: [id number]) Xanax 0.25 mg tablet RxNorm: 313743 Tablet(s) PO TAKE ONE TABLET BY MOUTH EVERY 8 HOURS NEEDED FOR ANXIETY 11/18/2013 01/15/2014 Inactive (Appended: Controlled substance eRx refill - RxReferenceNumber: [id number]) Ambien 10 mg tablet RxNorm: 943562 Tablet(s) PO TAKE ONE TABLET BY MOUTH EVERY DAY AT BEDTIME NEEDED 08/31/2013 07/31/2014 Inactive (Appended: Controlled substance eRx refill - RxReferenceNumber: [id number]) Ambien 10 mg tablet RxNorm: 663770 Tablet(s) PO TAKE ONE TABLET BY MOUTH EVERY DAY AT BEDTIME NEEDED 08/31/2013 08/30/2013 Inactive (Appended: Controlled substance eRx refill - RxReferenceNumber: [id number]) Xanax 0.25 mg tablet RxNorm: 218206 Tablet(s) PO TAKE ONE TABLET BY MOUTH EVERY 8 HOURS NEEDED FOR ANXIETY 07/21/2013 11/21/2013 Inactive (Appended: Controlled substance eRx refill - RxReferenceNumber: [id number]) Xanax 0.25 mg tablet RxNorm: 167157 Tablet(s) PO TAKE ONE TABLET BY MOUTH EVERY 8 HOURS NEEDED FOR ANXIETY 07/19/2013 07/21/2013 Inactive (Appended: Controlled substance eRx refill - RxReferenceNumber: [id number]) omeprazole 20 mg capsule,delayed release RxNorm: 297342 Capsule(s) PO TAKE ONE CAPSULE BY MOUTH EVERY DAY 05/23/2013 04/23/2014 Inactive Flagyl 500 mg tablet RxNorm: 964336 1 Tablet(s) PO BID 02/21/2013 02/20/2013 Inactive Flagyl 500 mg tablet RxNorm: 151232 1 Tablet(s) PO BID 02/21/2013 02/27/2013 Inactive fluconazole 150 mg tablet RxNorm: 628854 1 Tablet(s) PO PRN one pill as needed for yeast infection symptoms 02/14/2013 04/23/2014 Inactive Xanax 0.25 mg tablet RxNorm: 190790 Tablet(s) PO TAKE ONE TABLET BY MOUTH EVERY 8 HOURS NEEDED FOR ANXIETY 02/03/2013 11/20/2013 Inactive (Appended: Controlled substance eRx refill - RxReferenceNumber: [id number]) Ambien 10 mg tablet RxNorm: 715842 Tablet(s) PO TAKE ONE TABLET BY MOUTH AT BEDTIME NEEDED 02/03/2013 08/31/2013 Inactive (Appended: Controlled substance eRx refill - RxReferenceNumber: [id number]) Ambien 10 mg tablet RxNorm: 583157 Tablet(s) PO TAKE ONE TABLET BY MOUTH AT BEDTIME NEEDED 02/03/2013 01/10/2015 Inactive (Appended: Controlled substance eRx refill - RxReferenceNumber: [id number]) Xanax 0.25 mg tablet RxNorm: 369616 Tablet(s) PO 02/03/2013 07/20/2013 Inactive TAKE ONE TABLET BY MOUTH EVERY 8 HOURS NEEDED FOR ANXIETY (Appended: Controlled substance eRx refill - RxReferenceNumber: [id number]) Xanax 0.25 mg tablet RxNorm: 347067 Tablet(s) PO TAKE ONE TABLET BY MOUTH EVERY 8 HOURS NEEDED FOR ANXIETY 12/08/2012 02/03/2013 Inactive (Appended: Controlled substance eRx refill - RxReferenceNumber: [id number]) Ambien 10 mg tablet RxNorm: 457728 Tablet(s) PO TAKE ONE TABLET BY MOUTH AT BEDTIME NEEDED 12/08/2012 02/02/2013 Inactive (Appended: Controlled substance eRx refill - RxReferenceNumber: [id number]) Xanax 0.25 mg tablet RxNorm: 708762 Tablet(s) PO TAKE ONE TABLET BY MOUTH EVERY 8 HOURS NEEDED FOR ANXIETY 12/08/2012 12/07/2012 Inactive (Appended: Controlled substance eRx refill - RxReferenceNumber: [id number]) Ambien 10 mg tablet RxNorm: 306840 Tablet(s) PO TAKE ONE TABLET BY MOUTH AT BEDTIME NEEDED 12/08/2012 02/03/2013 Inactive (Appended: Controlled substance eRx refill - RxReferenceNumber: [id number]) Ambien 10 mg tablet RxNorm: 387383 Tablet(s) PO 08/27/2012 12/08/2012 Inactive TAKE ONE TABLET BY MOUTH AT BEDTIME NEEDED (Appended: Controlled substance eRx refill - RxReferenceNumber: [id number]) Xanax 0.25 mg tablet RxNorm: 475148 Tablet(s) PO 08/24/2012 02/02/2013 Inactive TAKE ONE TABLET BY MOUTH EVERY 8 HOURS NEEDED FOR ANXIETY (Appended: Controlled substance eRx refill - RxReferenceNumber: [id number]) Ambien 10 mg tablet RxNorm: 155425 Tablet(s) PO 08/24/2012 08/27/2012 Inactive TAKE ONE TABLET BY MOUTH AT BEDTIME NEEDED (Appended: Controlled substance eRx refill - RxReferenceNumber: [id number]) Xanax 0.25 mg tablet RxNorm: 212503 Tablet(s) PO 08/24/2012 12/08/2012 Inactive TAKE ONE TABLET BY MOUTH EVERY 8 HOURS NEEDED FOR ANXIETY (Appended: Controlled substance eRx refill - RxReferenceNumber: [id number]) Xanax 0.25 mg tablet RxNorm: 614285 1 Tablet(s) PO Q8 PRN 07/09/2012 08/24/2012 Inactive omeprazole 20 mg capsule,delayed release RxNorm: 283870 1 Capsule(s) PO daily 05/19/2012 12/14/2012 Inactive Ambien 10 mg tablet RxNorm: 641488 1 Tablet(s) PO QHS 05/19/2012 08/24/2012 Inactive Xanax 0.25 mg tablet RxNorm: 256385 1 Tablet(s) PO Q8 PRN 03/16/2012 06/13/2012 Inactive Diflucan 150 mg Tab RxNorm: 163007 1 Tablet(s) PO daily 01/05/2012 01/14/2012 Inactive Ambien 10 mg tablet RxNorm: 386075 1 Tablet(s) PO QHS 01/02/2012 04/30/2012 Inactive Ambien 10 mg Tab RxNorm: 112116 1 Tablet(s) PO QHS 12/24/2011 01/01/2012 Inactive Rocephin 500 mg Solution for Injection RxNorm: 038291 1 Milliliter(s) Inj 11/13/2011 11/13/2011 Inactive omeprazole 20 mg capsule,delayed release RxNorm: 094720 1 Capsule(s) PO daily 10/07/2011 05/18/2012 Inactive omeprazole 20 mg Cap, Delayed Release RxNorm: 095994 1 Capsule(s) PO daily 10/07/2011 04/03/2012 Inactive Ambien 5 mg Tab RxNorm: 897644 1 Tablet(s) PO QHS 1 tab q hs prn insomnia 10/07/2011 12/23/2011 Inactive Xanax 0.25 mg Tab RxNorm: 591447 1 Tablet(s) PO Q8 PRN 09/29/2011 03/15/2012 Inactive Medication Administered Medication Codes Instructions Start Date Status Rocephin 500 mg Solution for Injection RxNorm: 095303 1Milliliter 11/13/2011 No longer Active Immunizations Vaccine [...] chest pain ICD-10: R07.89 ICD-9: 786.59 11/15/2015 Migraines ICD-9: 346.90 06/28/2015 GENERALIZED ANXIETY DISEASE ICD-9: 300.02 06/28/2015 Right ankle pain ICD-9: 719.47 05/23/2014 Right ankle sprain ICD-9: 845.00 05/23/2014 Laboratory exam ordered as part of routine general medical examination ICD-9: V72.62 04/24/2014 ROUTINE GYNE EXAM ICD-9: V72.31 04/24/2014 Numbness in both legs ICD-9: 782.0 02/16/2012 Myalgia ICD-9: 729.1 02/16/2012 Vaginal discharge ICD-9: 623.5 01/05/2012 Skin lesion of breast ICD-9: 611.9 01/05/2012 Acute maxillary sinusitis ICD-9: 461.0 11/13/2011 Cerumen impaction ICD-9: 380.4 11/13/2011 Cough ICD-9: 786.2 11/13/2011 DEPRESSIVE DISORDER NEC ICD-9: 311 09/29/2011 HEARING LOSS ICD-9: 389.9 09/29/2011 Reason For Visit Reason For Visit [...] Item Item Code Result Date GC/CHL PRB 7703924 CHLM PROBE NEG 04/26/2014 GC/CHL PRB 4893582 GC PROBE NEG 04/26/2014 TSH 8455819 TSH 2.977 uIU/ML 02/16/2013 GC/CHL PRB 8800063 SOURCE KIMBERLYN UNKNOWN 02/15/2013 GC/CHL PRB 0366566 CHLM PROBE NEG 02/15/2013 GC/CHL PRB 2285970 GC PROBE NEG 02/15/2013 CHEM 14 8833831 AST 12 U/L 02/15/2013 CHEM 14 5810007 ALT 16 IU/L 02/15/2013 CHEM 14 5100202 BUN 13 MG/DL 02/15/2013 CHEM 14 5021625 ALBUMIN 4.6 GM/DL 02/15/2013 CHEM 14 2281243 CHLORIDE 104 MMOL/L 02/15/2013 CHEM 14 2743330 BILI TOT 0.5 MG/DL 02/15/2013 CHEM 14 2972435 ALK PHOS 55 U/L 02/15/2013 CHEM 14 5820744 SODIUM 137 MMOL/L 02/15/2013 CHEM 14 5651845 CREATININE 0.79 MG/DL 02/15/2013 CHEM 14 3694047 CALCIUM 9.3 MG/DL 02/15/2013 CHEM 14 8481317 POTASSIUM 4.0 MMOL/L 02/15/2013 CHEM 14 3392215 PROT TOT 6.9 GM/DL 02/15/2013 CHEM 14 6462325 GLUCOSE 99 MG/DL 02/15/2013 CHEM 14 1088539 BICARB 29 MMOL/L 02/15/2013 CHEM 14 1284861 ANION GAP 4 MEQ/L 02/15/2013 CBC 5144705 WBC 5.8 10e9/L 02/15/2013 CBC 6003616 RBC 4.51 10e12/L 02/15/2013 CBC 8180246 HGB 13.8 g/dL 02/15/2013 CBC 9544048 HCT DET 39.0 % 02/15/2013 CBC 4025780 MCV 86.5 fL 02/15/2013 CBC 2406705 MCH 30.6 pg 02/15/2013 CBC 2311802 MCHC 35.4 g/dL 02/15/2013 CBC 0517765 PLT 284 10e9/L 02/15/2013 CBC 5647482 MPV 10.3 fL 02/15/2013 CBC 9743702 BLANQUITA % 62.9 % 02/15/2013 CBC 4968419 LY % 26.8 % 02/15/2013 CBC 7457542 MON % 9.1 % 02/15/2013 CBC 9192876 EOS % 1.2 % 02/15/2013 CBC 3858260 BASO % 0.0 % 02/15/2013 CBC 4265783 RDW 14.4 % 02/15/2013 CBC 5253046 ABS BLANQUITA 3.65 10e9/L 02/15/2013 CBC 9881620 ABS LYMPH 1.55 10e9/L 02/15/2013 CBC 8341178 ABS MONO 0.53 10e9/L 02/15/2013 CBC 5676134 ABS EOS 0.07 10e9/L 02/15/2013 CBC 6087238 ABS BASO 0.00 10e9/L 02/15/2013 CBC 6803972 RDW-SD 44.0 fL 02/15/2013 LIPID GRP HDL TEST 38 MG/DL 02/15/2013 LIPID GRP TRIG 126 MG/DL 02/15/2013 LIPID GRP TEST LDL 112 MG/DL 02/15/2013 LIPID GRP CHOL 175 MG/DL 02/15/2013 LIPID GRP RCHOL/HDL 4.61 RATIO 02/15/2013 GFR CALC 4533153 GFR AA >60 ML/MIN 02/15/2013 GFR CALC 9771705 GFR NON-AA >60 ML/MIN 02/15/2013 Review of Systems System Result Effective [...] cerumen 10/26/2018 None Full Exam - General 1995 Ears/Nose/Throat [...] distress 11/13/2011 None Full Exam - General 1995 Eyes pupils and irises Overall: pupils equal, round, reactive to light and accomodation 11/13/2011 None Full Exam - General 1995 Lymphatic neck nodes Overall: shotty lymphadenopathy 11/13/2011 [...] PROBE (CHYLMD TRACH DNA AMP PROBE) CPT-4: 32994 04/24/2014 GC PROBE (N.GONORRHOEAE DNA AMP PROB) CPT-4: 92621 04/24/2014 ROUTINE VENIPUNCTURE CPT- 4: 12214 02/15/2013 PREV VISIT EST AGE 40-64 CPT-4: 36648 01/05/2012 ROCEPHIN, PER 250 MG CPT- 4: J0696 11/13/2011 THER/PROPH/DIAG INJ SC/IM CPT-4: 73593 11/13/2011 REMOVE IMPACTED EAR WAX UNI CPT-4: 50365 11/13/2011 Vital Signs Date Vital 10/26/2018 Blood Pressure 1: 140/76 Code: 8480-6 BMI: 31.5 Code: 36838-5 Heart Rate 1: 79 bpm Height: 5'8" SpO2: 98% Weight: 207 lbs 02/22/2018 Blood Pressure 1: 132/70 Code: 8480-6 BMI: 33.1 Code: 55446-2 Heart Rate 1: 75 bpm Height: 5'8" SpO2: 97% Weight: 218 lbs 01/21/2018 Blood Pressure 1: 122/78 Code: 8480-6 Heart Rate 1: 73 bpm Height: 5'8" SpO2: 98% Weight: 09/01/2017 Blood Pressure 1: 134/82 Code: 8480-6 Heart Rate 1: 80 bpm Height: SpO2: 98% Weight: 06/18/2017 Blood Pressure 1: 122/76 Code: 8480-6 BMI: 30.7 Code: 92284-5 Heart Rate 1: 78 bpm Height: 5'8" SpO2: 98% Weight: 202 lbs 02/19/2017 Blood Pressure 1: 132/70 Code: 8480-6 BMI: 30.1 Code: 74229-0 Heart Rate 1: 72 bpm Height: 5'8" SpO2: 98% Weight: 198 lbs 02/05/2017 Blood Pressure 1: 124/84 Code: 8480-6 BMI: 29.3 Code: 27784-1 Heart Rate 1: 98 bpm Height: 5'8" SpO2: 98% Weight: 193 lbs 11/20/2016 Blood Pressure 1: 130/86 Code: 8480-6 BMI: 30.0 Code: 48196-3 Heart Rate 1: 90 bpm Height: 5'8" SpO2: 99% Weight: 197 lbs 09/26/2016 Blood Pressure 1: 124/84 Code: 8480-6 Heart Rate 1: 74 bpm SpO2: 97% Weight: 203 lbs 08/25/2016 Blood Pressure 1: 124/86 Code: 8480-6 BMI: 31.0 Code: 82725-6 Heart Rate 1: 90 bpm Height: 5'8" SpO2: 95% Weight: 204 lbs 12/13/2015 Blood Pressure 1: 112/80 Code: 8480-6 BMI: 31.5 Code: 96208-8 Heart Rate 1: 87 bpm Height: 5'8" SpO2: 97% Weight: 207 lbs 11/15/2015 Blood Pressure 1: 146/78 Code: 8480-6 BMI: 32.1 Code: 07451-4 Heart Rate 1: 96 bpm Height: 5'8" SpO2: 97% Weight: 211 lbs 06/28/2015 Blood Pressure 1: 132/64 Code: 8480-6 BMI: 29.5 Code: 80421-2 Heart Rate 1: 91 bpm Height: 5'8" SpO2: 98% Weight: 194 lbs 05/23/2014 Blood Pressure 1: 124/80 Code: 8480-6 BMI: 30.3 Code: 37278-5 Heart Rate 1: 68 bpm Height: 5'8" Weight: 199 lbs 04/24/2014 Blood Pressure 1: 132/72 Code: 8480-6 BMI: 30.7 Code: 32222-0 Heart Rate 1: 82 bpm Height: 5'8" SpO2: 98% Weight: 202 lbs 02/14/2013 Blood Pressure 1: 122/80 Code: 8480-6 BMI: 28.6 Code: 24465-9 Heart Rate 1: 84 bpm Height: 5'8" Respiratory Rate: 16 bpm Weight: 188 lbs 02/16/2012 Blood Pressure 1: 104/66 Code: 8480-6 BMI: 28.5 Code: 42596-8 Heart Rate 1: 76 bpm Height: 5'7" Weight: 182 lbs 01/05/2012 Blood Pressure 1: 100/64 Code: 8480-6 BMI: 28.7 Code: 48902-8 Heart Rate 1: 78 bpm Height: 5'7" Respiratory Rate: 16 bpm Weight: 183 lbs 11/13/2011 Blood Pressure 1: 116/78 Code: 8480-6 Heart Rate 1: 84 bpm Respiratory Rate: 16 bpm SpO2: 98% Temperature: 36.7 (C) / 98.1 (F) Weight: 181 lbs 09/29/2011 Blood Pressure 1: 118/82 Code: 8480-6 BMI: 36.8 Code: 64164-1 Heart Rate 1: 72 bpm Height: 4'10" [...] the day. 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 PATIENT, LEVEL III Diagnosis: Excessive and frequent menstruation with regular cycle[ICD10: N92.0] Maylin Jain MD, [facility] CPT-4: 91354 02/22/2018 ([id number]) 03309 EST. PATIENT, LEVEL III Diagnosis: Gastro-esophageal reflux disease with esophagitis[ICD10: K21.0] Unique Jain MD, [facility] CPT-4: 03932 01/21/2018 80449 EST. PATIENT, LEVEL III Diagnosis: Pain in left leg[ICD10: M79.605] Maylin Jain MD, [facility] CPT-4: 75822 09/01/2017 ([id number]) 68108 EST. PATIENT, LEVEL III Diagnosis: Generalized anxiety disorder[ICD10: F41.1] Unique Jain MD, [facility] CPT-4: 15045 06/18/2017 [id number] EST. PATIENT, LEVEL IV Diagnosis: Pain in left shoulder[ICD10: M25.512] Diagnosis: Pain in right shoulder[ICD10: M25.511] [facility] CPT- 4: 35466 02/19/2017 ([id number]) PREV VISIT EST AGE 40-64 Diagnosis: Encounter for gynecological examination (general) (routine) without abnormal findings[ICD10: Z01.419] Bianca Jain MD, [facility] CPT-4: 76964 02/05/2017 ([id number]) 57197 EST. PATIENT, LEVEL III Diagnosis: Generalized anxiety disorder[ICD10: F41.1] Diagnosis: Other obesity due to excess calories[ICD10: E66.09] Bianca Jain MD, [facility] CPT-4: 24024 11/20/2016 ([id number]) Miscellaneous no charge Diagnosis: Other obesity due to excess calories[ICD10: E66.09] [facility] CPT-4: 31122 09/26/2016 ([id number]) 86250 EST. PATIENT, LEVEL IV Diagnosis: Generalized anxiety disorder[ICD10: F41.1] Diagnosis: Adjustment insomnia[ICD10: F51.02] Diagnosis: Other obesity due to excess calories[ICD10: E66.09] Unique Jain MD, [facility] CPT-4: 85171 08/25/2016 39962 EST. PATIENT, LEVEL IV Diagnosis: Dizziness and giddiness[ICD10: R42] Maylin Jain MD, [facility] CPT- 4: 39093 12/13/2015 24943 EST. PATIENT, LEVEL IV Diagnosis: Dizziness and giddiness[ICD10: R42] Diagnosis: Other chest pain[ICD10: R07.89] Maylin Jain MD, [facility] CPT-4: 48718 11/15/2015 ([id number]) 09687 EST. PATIENT, LEVEL III Diagnosis: GENERALIZED ANXIETY DISEASE[ICD9: 300.02] Diagnosis: Migraines[ICD9: 346.90] Unique Jain MD, [facility] CPT-4: 81131 06/28/2015 ([id number]) 86063 EST. PATIENT, LEVEL III Diagnosis: Right ankle pain[ICD9: 719.47] Diagnosis: Right ankle sprain[ICD9: 845.00] [facility] CPT- 4: 09228 05/23/2014 ([id number]) PREV VISIT EST AGE 40-64 Diagnosis: ROUTINE GYNE EXAM[ICD9: V72.31] Diagnosis: Laboratory exam ordered as part of routine general medical examination[ICD9: V72.62] [facility] CPT-4: 02508 04/24/2014 ([id number]) PREV VISIT EST AGE 40-64 Diagnosis: Well woman exam with routine gynecological exam[ICD9: V72.31] [facility] CPT-4: 88215 02/14/2013 73762 EST. PATIENT, LEVEL IV Diagnosis: Numbness in both legs[ICD9: 782.0] Diagnosis: Myalgia[ICD9: 729.1] [facility] CPT-4: 59318 02/16/2012 ([id number]) 36547 EST. PATIENT, LEVEL IV Diagnosis: Acute maxillary sinusitis[ICD9: 461.0] Diagnosis: Cough[ICD9: 786.2] Diagnosis: Cerumen impaction[ICD9: 380.4] [facility] CPT-4: 61954 11/13/2011 ([id number]) OFFICE VISIT, NEW - LEVEL 3 Diagnosis: GENERALIZED ANXIETY DISEASE[ICD9: 300.02] Diagnosis: DEPRESSIVE DISORDER NEC[ICD9: 311] Diagnosis: Impacted cerumen[ICD9: 380.4] Diagnosis: HEARING LOSS[ICD9: 389.9] Bianca Jain MD, [facility] CPT-4: 56942 09/29/2011 Plan of Care Planned Activity Notes [...] renal functioning. 10/26/2018 Appointment: [facility] [place] (15 min) Moderate 10/26/2018 Patient Education: Patient Medication Summary Completed 10/26/2018 Care Plan: Cbc With Differential Cancelled 02/23/2018 Care Plan: Bhcg Qual Cancelled 02/23/2018 Care Plan: Referral Order SNOMED-CT : [id number] Pending 02/23/2018 Visit Plan: Excessive menstrual bleeding and irregular menstruation - pt would like to be referred to OB and would like to know about a possible hysterectomy - will refer - pt is to notify clinic if symptoms do not improve, if they worsen, or with any changes, questions, or concerns. 02/22/2018 Appointment: May[facility] Chowdhury [phone] [place] [place] (15 min) Moderate 02/22/2018 Patient Education: Patient [...] improve. 09/01/2017 Appointment: Maylin Chowdhury [facility]Ptel[phone] [place] [place] (30 min) Complex 09/01/2017 Patient Education: Patient Medication Summary Completed 09/01/2017 Appointment: [facility]ain [facility] [phone] [facility] [place] [place] (15 min) Moderate 07/29/2017 Visit Plan: Chronic [...] improve. 02/19/2017 Appointment: Maylin Chowdhury [facility]Ptel[phone] [place] [place] (15 min) Moderate 02/19/2017 Patient Education: [...] PAP Pending 02/05/2017 Appointment: Bianca Jain WPtel: [phone] [facility] Well Woman 01/22/2017 Visit Plan: Obesity - chronic issue with this patient. The pt has been counseled about diet changes, calorie restriction, and need to exercise. Pt will RTC in one month for weight check. Anxiety - refill anxiolytic 11/20/2016 Appointment: Bianca Jain WPtel: [phone] [facility] Well Woman 11/20/2016 Patient Education: Patient Medication [...] situational exposure. No change in current medications. Sxtwlkkk-tbrumgpvgu-ebqpum ambien for prn use Obesity - chronic [...] situational exposure. No change in current medications. Ouztddgj-gjsqfdefrp-tehnhd ambien for prn use Obesity - chronic issue with this patient. The pt has been counseled about diet changes, calorie restriction, and need to exercise. Pt will RTC in one month for weight check. 08/25/2016 Appointment: Unique Nichole WPtel: [address] [place], [place] [phone] [place] (15 min) Moderate 08/25/2016 Patient Education: [...] pt consult with Dr. Shun Harrison at [facility]. Migraine headaches - start on topamax. 04/24/2014 Appointment: Bianca Jain WPtel: [address] [place], [place] [phone] Pap Only 04/24/2014 Patient Education: Patient Medication Summary Completed 04/24/2014 Care Plan: PAP Pending 04/24/2014 Appointment: Unique Nichole WPtel: [address] [place], [place] [phone] Other 05/31/2013 Patient Education: Patient Medication Summary [...] Summary Completed 02/14/2013 Appointment: Bianca Jain WPtel: [address] [place], [place] [id number] [place] Pap Only 01/31/2013 Appointment: Unique Nichole WPtel: [address] [place], [place] [phone] Other 09/13/2012 Visit Plan: Numbness-bilateral lower muz-ftqqughu-jwdt to check labs including chem panel to evaluate electrolytes as well as blood sugar, cbc, and b12 level. Recommend patient start on a multivitamin daily and drink plenty of fluids. Will call patient with labs results. Instructed patient to call with any concerns or worsening symptoms. Patient verbalized understanding of plan. 02/16/2012 Appointment: Unique Nichole WPtel: [address] [place], [place] [phone] Other 02/16/2012 Patient Education: Patient Medication Summary [...] cancer. 01/05/2012 Appointment: Bianca Jain WPtel: [phone] [facility] Pap Only 01/05/2012 Patient Education: Patient Medication [...] not improved. 11/13/2011 Appointment: [phone] [facility] Other 11/13/2011 Patient Education: Patient Medication Summary [...] process. 09/29/2011 Appointment: [facility]ain [facility] [phone] [facility] New Patient 09/29/2011 Patient Education: Patient Medication [...] situational exposure. No change in current medications. Sninlexv-cnucbyhcgo-mxfsod ambien for prn use Obesity - chronic [...] situational exposure. No change in current medications. Lzmafyre-vzayusbtel-wjrukn ambien for prn use Obesity - chronic [...] symptoms worsen, or with any other concerns. [facility] shun harrison and saritha quick [...] pt consult with Dr. Shun Harrison at [facility]. Migraine headaches - start on topamax. Check labs-cbc, cmp, b12 level. . Numbness-bilateral lower yau-nhcjoroo-twhq to check labs including chem panel to [...]
[2019-03-03] MEDS ORDERED: DEXAMETHASONE 10 MG/ML (DECADRON) 1 ML VIAL ONE (06:51)
[2019-03-03] MEDS ORDERED: ONDANSETRON 4 MG/2 ML (SDV) Z0FRAN ONE ×2 (06:51→09:29)
[2019-03-03] MEDS ORDERED: fentaNYL INJECTION 100 MCG/2 ML AMP ONE (06:51)
[2019-03-03] MEDS ORDERED: proPOfol 200 MG/20 ML (DIPRIVAN) VIAL IV ONE (06:51)
[2019-03-03] MEDS ORDERED: SEVOFLURANE (ULTANE) 15 ML INHAL SOLN ONE ×5 (06:51→08:50)
[2019-03-03] MEDS ORDERED: LIDOCAINE PF 2% 5 ML (XYLOCAINE) VIAL ONE (06:51)
[2019-03-03] MEDS ORDERED: ROCURONIUM 10 MG/ML 5 ML SYRINGE IV ONE ×2 (06:51→08:35)
--- OUTSIDE RECORDS SUMMARY | 2019-03-03 06:51 | XMS REPORT | CCD ---
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 Name Role Phone Bianca Jain PP Unavailable CCM Unavailable Summary Purpose Interface Exchange Insurance Providers Payer name Policy type / Coverage type Covered republican ID Effective Begin Date Effective End Date [employer] Insurance [id number] 2018 Unknown Family history Brother Diagnosis Age [...] Effective Dates Employment Unknown Currently employed [employer] 11/15/2018 Marital status Unknown 01/05/[address]: 302338889 Never smoker 09/29/[address]: 065086 Currently drinks alcohol 3 weekly 09/29/2011 Has [...] Date Stop Date Status Fill Instructions amitriptyline 25 mg tablet RxNorm: 601041 1 Tablet(s) PO QHS 11/15/2018 01/13/2019 Active dc ambien amitriptyline 25 mg tablet RxNorm: 658899 1 Tablet(s) PO QHS 11/15/2018 11/14/2018 Inactive dc ambien atorvastatin 20 mg tablet RxNorm: 006694 1 Tablet(s) PO daily 11/04/2018 03/03/2019 Active atorvastatin 20 mg tablet RxNorm: 348278 1 Tablet(s) PO daily 11/04/2018 11/03/2018 Inactive topiramate 25 mg tablet RxNorm: 957144 TAKE 1 TABLET BY MOUTH TWICE DAILY 10/26/2018 No Stop Date Active Xanax 0.5 mg tablet RxNorm: 784858 1 Tablet(s) PO Q8 as needed anxiety 10/26/2018 11/24/2018 Active Ambien 10 mg tablet RxNorm: 641724 Tablet(s) TAKE ONE TABLET BY MOUTH AT BEDTIME NEEDED 10/26/2018 11/14/2018 Inactive Xanax 0.5 mg tablet RxNorm: 510995 Tablet(s) TAKE ONE TABLET BY MOUTH EVERY 8 HOURS NEEDED FOR ANXIETY 08/27/2018 10/24/2018 Inactive Ambien 10 mg tablet RxNorm: 525719 Tablet(s) TAKE ONE TABLET BY MOUTH AT BEDTIME NEEDED 08/27/2018 11/14/2018 Inactive Ambien 10 mg tablet RxNorm: 628930 Tablet(s) TAKE ONE TABLET BY MOUTH AT BEDTIME NEEDED 07/29/2018 08/26/2018 Inactive Lexapro 10 mg tablet RxNorm: 055883 TAKE 1 TABLET BY MOUTH IN THE EVENING 07/27/2018 No Stop Date Active Xanax 0.5 mg tablet RxNorm: 417465 1 Tablet(s) PO Q8 as needed anxiety 06/18/2018 09/15/2018 Inactive Xanax 0.5 mg tablet RxNorm: 280833 Tablet(s) TAKE ONE TABLET BY MOUTH EVERY 8 HOURS NEEDED FOR ANXIETY 06/18/2018 08/15/2018 Inactive Ambien 10 mg tablet RxNorm: 593531 1 Tablet(s) PO HS PRN TAKE ONE TABLET BY MOUTH AT BEDTIME NEEDED 05/20/2018 10/25/2018 Inactive topiramate 25 mg tablet RxNorm: 533380 TAKE ONE TABLET BY MOUTH TWICE DAILY 04/21/2018 10/25/2018 Inactive Xanax 0.5 mg tablet RxNorm: 386751 1 Tablet(s) PO Q8 as needed anxiety 03/24/2018 06/17/2018 Inactive Ambien 10 mg tablet RxNorm: 862865 1 Tablet(s) PO HS PRN TAKE ONE TABLET BY MOUTH AT BEDTIME NEEDED 02/22/2018 05/19/2018 Inactive naproxen 500 mg tablet RxNorm: 898967 1 Tablet(s) PO BID 02/22/2018 02/26/2018 Inactive Ambien 10 mg tablet RxNorm: 836029 TAKE ONE TABLET BY MOUTH AT BEDTIME NEEDED 02/19/2018 07/28/2018 Inactive Dexilant 60 mg capsule, delayed release RxNorm: 322386 1 Capsule(s) PO daily 01/21/2018 No Stop Date Active Xanax 0.5 mg tablet RxNorm: 818638 Tablet(s) TAKE ONE TABLET BY MOUTH EVERY 8 HOURS NEEDED FOR ANXIETY 01/19/2018 03/17/2018 Inactive Lexapro 10 mg tablet RxNorm: 761477 TAKE ONE TABLET BY MOUTH IN THE EVENING 01/18/2018 07/26/2018 Inactive Xanax 0.5 mg tablet RxNorm: 834675 1 Tablet(s) PO Q8 PRN TAKE ONE TABLET BY MOUTH EVERY 8 HOURS NEEDED FOR ANXIETY 12/17/2017 01/14/2018 Inactive topiramate 25 mg tablet RxNorm: 247696 TAKE ONE TABLET BY MOUTH TWICE DAILY 10/13/2017 04/20/2018 Inactive K-Dur 10 mEq tablet,extended release RxNorm: 448824 1 Tablet(s) PO daily 09/11/2017 09/11/2017 Inactive potassium chloride ER 10 mEq tablet,extended release RxNorm: 688421 1 Tablet(s) PO daily 09/11/2017 09/10/2017 Inactive Lasix 20 mg tablet RxNorm: 164894 1 Tablet(s) PO daily for three days 09/11/2017 09/10/2017 Inactive potassium chloride ER 10 mEq tablet,extended release RxNorm: 645504 1 Tablet(s) PO daily 09/11/2017 09/13/2017 Inactive Lasix 20 mg tablet RxNorm: 188860 1 Tablet(s) PO daily for three days 09/11/2017 09/13/2017 Inactive naproxen 500 mg tablet RxNorm: 702366 1 Tablet(s) PO BID 09/01/2017 09/05/2017 Inactive Ambien 10 mg tablet RxNorm: 332637 1 Tablet(s) PO HS PRN TAKE ONE TABLET BY MOUTH AT BEDTIME NEEDED 08/14/2017 02/22/2018 Inactive Xanax 0.5 mg tablet RxNorm: 625994 1 Tablet(s) PO Q8 PRN TAKE ONE TABLET BY MOUTH EVERY 8 HOURS NEEDED FOR ANXIETY 08/14/2017 01/18/2018 Inactive Lexapro 10 mg tablet RxNorm: 268784 TAKE ONE TABLET BY MOUTH IN THE EVENING 07/13/2017 01/08/2018 Inactive Xanax 0.5 mg tablet RxNorm: 252749 1 Tablet(s) PO Q8 PRN TAKE ONE TABLET BY MOUTH EVERY 8 HOURS NEEDED FOR ANXIETY 06/18/2017 07/16/2017 Inactive Xanax 0.25 mg tablet RxNorm: 443036 Tablet(s) TAKE ONE TABLET BY MOUTH EVERY 8 HOURS NEEDED FOR ANXIETY 06/17/2017 06/17/2017 Inactive Ambien 10 mg tablet RxNorm: 802858 1 Tablet(s) PO QHS as needed insomnia 06/17/2017 08/17/2017 Inactive topiramate 25 mg tablet RxNorm: 798643 TAKE ONE TABLET BY MOUTH TWICE DAILY 06/16/2017 10/12/2017 Inactive Lexapro 10 mg tablet RxNorm: 856958 TAKE ONE TABLET BY MOUTH IN THE EVENING 04/17/2017 07/12/2017 Inactive Ambien 10 mg tablet RxNorm: 630408 1 Tablet(s) PO QHS as needed insomnia 04/17/2017 01/18/2018 Inactive Xanax 0.25 mg tablet RxNorm: 214721 Tablet(s) TAKE ONE TABLET BY MOUTH EVERY 8 HOURS NEEDED FOR ANXIETY 04/17/2017 06/13/2017 Inactive topiramate 25 mg tablet RxNorm: 694227 TAKE ONE TABLET BY MOUTH TWICE DAILY 03/20/2017 06/15/2017 Inactive Flagyl 500 mg tablet RxNorm: 157273 1 Tablet(s) PO TID do not drink alcohol when taking this medication 02/05/2017 02/09/2017 Inactive Ambien 10 mg tablet RxNorm: 912294 1 Tablet(s) PO QHS as needed insomnia 01/23/2017 04/21/2017 Inactive Xanax 0.25 mg tablet RxNorm: 125314 TAKE ONE TABLET BY MOUTH EVERY 8 HOURS NEEDED FOR ANXIETY 01/23/2017 04/21/2017 Inactive Xanax 0.25 mg tablet RxNorm: 112861 1 Tablet(s) PO TAKE ONE TABLET BY MOUTH EVERY 8 HOURS NEEDED FOR ANXIETY 11/28/2016 01/18/2018 Inactive Lexapro 10 mg tablet RxNorm: 173943 1 Tablet(s) PO QPM 11/20/2016 04/16/2017 Inactive topiramate 25 mg tablet RxNorm: 864174 1 Tablet(s) PO BID start one pill at hs, if migraines not improving, then increase to bid 11/20/2016 01/18/2018 Inactive Ambien 10 mg tablet RxNorm: 631215 1 Tablet(s) PO QHS as needed TAKE ONE TABLET BY MOUTH AT BEDTIME NEEDED FOR INSOMNIA 10/31/2016 01/18/2018 Inactive acyclovir 400 mg tablet RxNorm: 642583 1 Tablet(s) PO TID 10/01/2016 10/05/2016 Inactive acyclovir 400 mg tablet RxNorm: 627612 1 Tablet(s) PO TID 10/01/2016 09/30/2016 Inactive phentermine 37.5 mg tablet RxNorm: 661342 1 Tablet(s) PO daily 09/26/2016 02/04/2017 Inactive Xanax 0.25 mg tablet RxNorm: 461951 Tablet(s) TAKE ONE TABLET BY MOUTH EVERY 8 HOURS NEEDED FOR ANXIETY 08/25/2016 01/18/2018 Inactive Ambien 10 mg tablet RxNorm: 639510 1 Tablet(s) PO daily as needed TAKE ONE TABLET BY MOUTH AT BEDTIME NEEDED FOR INSOMNIA 08/25/2016 11/19/2016 Inactive phentermine 37.5 mg tablet RxNorm: 509633 1 Tablet(s) PO daily 08/25/2016 09/25/2016 Inactive topiramate 25 mg tablet RxNorm: 455987 TAKE ONE TABLET BY MOUTH TWICE DAILY 07/09/2016 08/24/2016 Inactive Xanax 0.25 mg tablet RxNorm: 490526 Tablet(s) TAKE ONE TABLET BY MOUTH EVERY 8 HOURS NEEDED FOR ANXIETY 04/28/2016 06/25/2016 Inactive Ambien 10 mg tablet RxNorm: 955741 1 Tablet(s) PO daily as needed TAKE ONE TABLET BY MOUTH AT BEDTIME NEEDED FOR INSOMNIA 04/28/2016 06/24/2016 Inactive topiramate 25 mg tablet RxNorm: 781960 1 Tablet(s) PO BID 02/20/2016 06/18/2016 Inactive Ambien 10 mg tablet RxNorm: 924516 1 Tablet(s) PO daily as needed TAKE ONE TABLET BY MOUTH AT BEDTIME NEEDED FOR INSOMNIA 01/03/2016 03/31/2016 Inactive (Response to an electronic controlled substance refill request - RxReferenceNumber: [id number]) Xanax 0.25 mg tablet RxNorm: 021731 Tablet(s) TAKE ONE TABLET BY MOUTH EVERY 8 HOURS NEEDED FOR ANXIETY 01/03/2016 01/18/2018 Inactive (Response to an electronic controlled substance refill request - RxReferenceNumber: [id number]) meclizine 25 mg tablet RxNorm: 260137 1 Tablet(s) PO QID 12/13/2015 01/11/2016 Inactive Xanax 0.25 mg tablet RxNorm: 845756 Tablet(s) TAKE ONE TABLET BY MOUTH EVERY 8 HOURS NEEDED FOR ANXIETY 11/23/2015 01/18/2018 Inactive (Response to an electronic controlled substance refill request - RxReferenceNumber: [id number]) topiramate 25 mg tablet RxNorm: 603703 1 Tablet(s) PO BID 11/02/2015 12/12/2015 Inactive pt needs to make an appt Ambien 10 mg tablet RxNorm: 867174 1 Tablet(s) PO daily as needed TAKE ONE TABLET BY MOUTH AT BEDTIME NEEDED FOR INSOMNIA 10/30/2015 11/19/2016 Inactive (Response to an electronic controlled substance refill request - RxReferenceNumber: [id number]) Xanax 0.25 mg tablet RxNorm: 316577 Tablet(s) TAKE ONE TABLET BY MOUTH EVERY 8 HOURS NEEDED FOR ANXIETY 09/20/2015 10/18/2015 Inactive (Response to an electronic controlled substance refill request - RxReferenceNumber: [id number]) Xanax 0.25 mg tablet RxNorm: 468517 Tablet(s) TAKE ONE TABLET BY MOUTH EVERY 8 HOURS NEEDED FOR ANXIETY 06/28/2015 08/25/2015 Inactive (Response to an electronic controlled substance refill request - RxReferenceNumber: [id number]) topiramate 25 mg tablet RxNorm: 927516 1 Tablet(s) PO BID 06/27/2015 10/24/2015 Inactive Ambien 10 mg tablet RxNorm: 820843 1 Tablet(s) PO daily as needed TAKE ONE TABLET BY MOUTH AT BEDTIME NEEDED FOR INSOMNIA 06/26/2015 09/23/2015 Inactive (Response to an electronic controlled substance refill request - RxReferenceNumber: [id number]) Xanax 0.25 mg tablet RxNorm: 859277 Tablet(s) TAKE ONE TABLET BY MOUTH EVERY 8 HOURS NEEDED FOR ANXIETY 04/04/2015 06/02/2015 Inactive (Response to an electronic controlled substance refill request - RxReferenceNumber: [id number]) Ambien 10 mg tablet RxNorm: 769793 1 Tablet(s) PO daily as needed TAKE ONE TABLET BY MOUTH AT BEDTIME NEEDED FOR INSOMNIA 02/16/2015 05/16/2015 Inactive (Response to an electronic controlled substance refill request - RxReferenceNumber: [id number]) Ambien 10 mg tablet RxNorm: 335681 TAKE ONE TABLET BY MOUTH AT BEDTIME NEEDED FOR INSOMNIA 01/11/2015 02/09/2015 Inactive (Response to an electronic controlled substance refill request - RxReferenceNumber: [id number]) Ambien 10 mg tablet RxNorm: 285221 1 Tablet(s) PO QHS as needed TAKE ONE TABLET BY MOUTH AT BEDTIME NEEDED 01/11/2015 01/11/2015 Inactive (Appended: Controlled substance eRx refill - RxReferenceNumber: [id number]) topiramate 25 mg tablet RxNorm: 395017 1 Tablet(s) PO BID 01/11/2015 05/10/2015 Inactive Xanax 0.25 mg tablet RxNorm: 480428 TAKE ONE TABLET BY MOUTH EVERY 8 HOURS NEEDED FOR ANXIETY 01/11/2015 02/09/2015 Inactive (Response to an electronic controlled substance refill request - RxReferenceNumber: [id number]) Xanax 0.25 mg tablet RxNorm: 857069 Tablet(s) TAKE ONE TABLET BY MOUTH EVERY 8 HOURS NEEDED FOR ANXIETY 01/11/2015 01/11/2015 Inactive (Response to an electronic controlled substance refill request - RxReferenceNumber: [id number]) Xanax 0.25 mg tablet RxNorm: 102588 Tablet(s) TAKE ONE TABLET BY MOUTH EVERY 8 HOURS NEEDED FOR ANXIETY 11/20/2014 12/17/2014 Inactive (Response to an electronic controlled substance refill request - RxReferenceNumber: [id number]) Xanax 0.25 mg tablet RxNorm: 683330 TAKE ONE TABLET BY MOUTH EVERY 8 HOURS NEEDED FOR ANXIETY 09/14/2014 10/13/2014 Inactive (Response to an electronic controlled substance refill request - RxReferenceNumber: [id number]) Xanax 0.25 mg tablet RxNorm: 353470 Tablet(s) PO TAKE ONE TABLET BY MOUTH EVERY 8 HOURS NEEDED FOR ANXIETY 09/12/2014 09/15/2014 Inactive (Appended: Controlled substance eRx refill - RxReferenceNumber: [id number]) Xanax 0.25 mg tablet RxNorm: 818179 TAKE ONE TABLET BY MOUTH EVERY 8 HOURS NEEDED FOR ANXIETY 07/31/2014 07/31/2014 Inactive (Response to an electronic controlled substance refill request - RxReferenceNumber: [id number]) Ambien 10 mg tablet RxNorm: 529455 TAKE ONE TABLET BY MOUTH AT BEDTIME NEEDED FOR INSOMNIA 07/31/2014 11/19/2016 Inactive (Response to an electronic controlled substance refill request - RxReferenceNumber: [id number]) Xanax 0.25 mg tablet RxNorm: 610869 TAKE ONE TABLET BY MOUTH EVERY 8 HOURS NEEDED FOR ANXIETY 07/31/2014 08/29/2014 Inactive (Response to an electronic controlled substance refill request - RxReferenceNumber: [id number]) metronidazole 500 mg tablet RxNorm: 196154 1 Tablet(s) PO TID 05/25/2014 05/31/2014 Inactive Diflucan 150 mg tablet RxNorm: 453837 1 Tablet(s) PO daily 05/25/2014 05/29/2014 Inactive topiramate 25 mg tablet RxNorm: 544602 1 Tablet(s) PO BID 04/24/2014 11/19/2014 Inactive Xanax 0.25 mg tablet RxNorm: 855537 Tablet(s) PO TAKE ONE TABLET BY MOUTH EVERY 8 HOURS NEEDED FOR ANXIETY 01/17/2014 07/31/2014 Inactive (Appended: Controlled substance eRx refill - RxReferenceNumber: [id number]) Xanax 0.25 mg tablet RxNorm: 766447 Tablet(s) PO TAKE ONE TABLET BY MOUTH EVERY 8 HOURS NEEDED FOR ANXIETY 01/16/2014 01/17/2014 Inactive (Appended: Controlled substance eRx refill - RxReferenceNumber: [id number]) Xanax 0.25 mg tablet RxNorm: 192071 Tablet(s) PO TAKE ONE TABLET BY MOUTH EVERY 8 HOURS NEEDED FOR ANXIETY 01/13/2014 09/11/2014 Inactive (Appended: Controlled substance eRx refill - RxReferenceNumber: [id number]) Xanax 0.25 mg tablet RxNorm: 673998 Tablet(s) PO TAKE ONE TABLET BY MOUTH EVERY 8 HOURS NEEDED FOR ANXIETY 11/21/2013 01/16/2014 Inactive (Appended: Controlled substance eRx refill - RxReferenceNumber: [id number]) Xanax 0.25 mg tablet RxNorm: 523520 Tablet(s) PO TAKE ONE TABLET BY MOUTH EVERY 8 HOURS NEEDED FOR ANXIETY 11/18/2013 01/15/2014 Inactive (Appended: Controlled substance eRx refill - RxReferenceNumber: [id number]) Ambien 10 mg tablet RxNorm: 031297 Tablet(s) PO TAKE ONE TABLET BY MOUTH EVERY DAY AT BEDTIME NEEDED 08/31/2013 07/31/2014 Inactive (Appended: Controlled substance eRx refill - RxReferenceNumber: [id number]) Ambien 10 mg tablet RxNorm: 786543 Tablet(s) PO TAKE ONE TABLET BY MOUTH EVERY DAY AT BEDTIME NEEDED 08/31/2013 08/30/2013 Inactive (Appended: Controlled substance eRx refill - RxReferenceNumber: [id number]) Xanax 0.25 mg tablet RxNorm: 671883 Tablet(s) PO TAKE ONE TABLET BY MOUTH EVERY 8 HOURS NEEDED FOR ANXIETY 07/21/2013 11/21/2013 Inactive (Appended: Controlled substance eRx refill - RxReferenceNumber: [id number]) Xanax 0.25 mg tablet RxNorm: 372568 Tablet(s) PO TAKE ONE TABLET BY MOUTH EVERY 8 HOURS NEEDED FOR ANXIETY 07/19/2013 07/21/2013 Inactive (Appended: Controlled substance eRx refill - RxReferenceNumber: [id number]) omeprazole 20 mg capsule,delayed release RxNorm: 963273 Capsule(s) PO TAKE ONE CAPSULE BY MOUTH EVERY DAY 05/23/2013 04/23/2014 Inactive Flagyl 500 mg tablet RxNorm: 522753 1 Tablet(s) PO BID 02/21/2013 02/20/2013 Inactive Flagyl 500 mg tablet RxNorm: 403325 1 Tablet(s) PO BID 02/21/2013 02/27/2013 Inactive fluconazole 150 mg tablet RxNorm: 974522 1 Tablet(s) PO PRN one pill as needed for yeast infection symptoms 02/14/2013 04/23/2014 Inactive Xanax 0.25 mg tablet RxNorm: 179308 Tablet(s) PO TAKE ONE TABLET BY MOUTH EVERY 8 HOURS NEEDED FOR ANXIETY 02/03/2013 11/20/2013 Inactive (Appended: Controlled substance eRx refill - RxReferenceNumber: [id number]) Ambien 10 mg tablet RxNorm: 045526 Tablet(s) PO TAKE ONE TABLET BY MOUTH AT BEDTIME NEEDED 02/03/2013 08/31/2013 Inactive (Appended: Controlled substance eRx refill - RxReferenceNumber: [id number]) Ambien 10 mg tablet RxNorm: 464909 Tablet(s) PO TAKE ONE TABLET BY MOUTH AT BEDTIME NEEDED 02/03/2013 01/10/2015 Inactive (Appended: Controlled substance eRx refill - RxReferenceNumber: [id number]) Xanax 0.25 mg tablet RxNorm: 227157 Tablet(s) PO 02/03/2013 07/20/2013 Inactive TAKE ONE TABLET BY MOUTH EVERY 8 HOURS NEEDED FOR ANXIETY (Appended: Controlled substance eRx refill - RxReferenceNumber: [id number]) Xanax 0.25 mg tablet RxNorm: 080861 Tablet(s) PO TAKE ONE TABLET BY MOUTH EVERY 8 HOURS NEEDED FOR ANXIETY 12/08/2012 02/03/2013 Inactive (Appended: Controlled substance eRx refill - RxReferenceNumber: [id number]) Ambien 10 mg tablet RxNorm: 540198 Tablet(s) PO TAKE ONE TABLET BY MOUTH AT BEDTIME NEEDED 12/08/2012 02/02/2013 Inactive (Appended: Controlled substance eRx refill - RxReferenceNumber: [id number]) Xanax 0.25 mg tablet RxNorm: 955267 Tablet(s) PO TAKE ONE TABLET BY MOUTH EVERY 8 HOURS NEEDED FOR ANXIETY 12/08/2012 12/07/2012 Inactive (Appended: Controlled substance eRx refill - RxReferenceNumber: [id number]) Ambien 10 mg tablet RxNorm: 162583 Tablet(s) PO TAKE ONE TABLET BY MOUTH AT BEDTIME NEEDED 12/08/2012 02/03/2013 Inactive (Appended: Controlled substance eRx refill - RxReferenceNumber: [id number]) Ambien 10 mg tablet RxNorm: 905719 Tablet(s) PO 08/27/2012 12/08/2012 Inactive TAKE ONE TABLET BY MOUTH AT BEDTIME NEEDED (Appended: Controlled substance eRx refill - RxReferenceNumber: [id number]) Xanax 0.25 mg tablet RxNorm: 291249 Tablet(s) PO 08/24/2012 02/02/2013 Inactive TAKE ONE TABLET BY MOUTH EVERY 8 HOURS NEEDED FOR ANXIETY (Appended: Controlled substance eRx refill - RxReferenceNumber: [id number]) Ambien 10 mg tablet RxNorm: 890511 Tablet(s) PO 08/24/2012 08/27/2012 Inactive TAKE ONE TABLET BY MOUTH AT BEDTIME NEEDED (Appended: Controlled substance eRx refill - RxReferenceNumber: [id number]) Xanax 0.25 mg tablet RxNorm: 666839 Tablet(s) PO 08/24/2012 12/08/2012 Inactive TAKE ONE TABLET BY MOUTH EVERY 8 HOURS NEEDED FOR ANXIETY (Appended: Controlled substance eRx refill - RxReferenceNumber: [id number]) Xanax 0.25 mg tablet RxNorm: 762006 1 Tablet(s) PO Q8 PRN 07/09/2012 08/24/2012 Inactive omeprazole 20 mg capsule,delayed release RxNorm: 488191 1 Capsule(s) PO daily 05/19/2012 12/14/2012 Inactive Ambien 10 mg tablet RxNorm: 280022 1 Tablet(s) PO QHS 05/19/2012 08/24/2012 Inactive Xanax 0.25 mg tablet RxNorm: 743977 1 Tablet(s) PO Q8 PRN 03/16/2012 06/13/2012 Inactive Diflucan 150 mg Tab RxNorm: 564315 1 Tablet(s) PO daily 01/05/2012 01/14/2012 Inactive Ambien 10 mg tablet RxNorm: 433734 1 Tablet(s) PO QHS 01/02/2012 04/30/2012 Inactive Ambien 10 mg Tab RxNorm: 929747 1 Tablet(s) PO QHS 12/24/2011 01/01/2012 Inactive Rocephin 500 mg Solution for Injection RxNorm: 723629 1 Milliliter(s) Inj 11/13/2011 11/13/2011 Inactive omeprazole 20 mg capsule,delayed release RxNorm: 251067 1 Capsule(s) PO daily 10/07/2011 05/18/2012 Inactive omeprazole 20 mg Cap, Delayed Release RxNorm: 921513 1 Capsule(s) PO daily 10/07/2011 04/03/2012 Inactive Ambien 5 mg Tab RxNorm: 855025 1 Tablet(s) PO QHS 1 tab q hs prn insomnia 10/07/2011 12/23/2011 Inactive Xanax 0.25 mg Tab RxNorm: 683489 1 Tablet(s) PO Q8 PRN 09/29/2011 03/15/2012 Inactive Medication Administered Medication Codes Instructions Start Date Status Rocephin 500 mg Solution for Injection RxNorm: 330345 1Milliliter 11/13/2011 No longer Active Immunizations Vaccine [...] Item Item Code Result Date GC/CHL PRB 7724306 CHLM PROBE NEG 04/26/2014 GC/CHL PRB 8813365 GC PROBE NEG 04/26/2014 TSH 7112952 TSH 2.977 uIU/ML 02/16/2013 GC/CHL PRB 7455081 SOURCE KIMBERLYN UNKNOWN 02/15/2013 GC/CHL PRB 5326417 CHLM PROBE NEG 02/15/2013 GC/CHL PRB 7403859 GC PROBE NEG 02/15/2013 CHEM 14 8087369 AST 12 U/L 02/15/2013 CHEM 14 3953417 ALT 16 IU/L 02/15/2013 CHEM 14 5995752 BUN 13 MG/DL 02/15/2013 CHEM 14 6803392 ALBUMIN 4.6 GM/DL 02/15/2013 CHEM 14 9524582 CHLORIDE 104 MMOL/L 02/15/2013 CHEM 14 3071286 BILI TOT 0.5 MG/DL 02/15/2013 CHEM 14 2888100 ALK PHOS 55 U/L 02/15/2013 CHEM 14 8393642 SODIUM 137 MMOL/L 02/15/2013 CHEM 14 9640855 CREATININE 0.79 MG/DL 02/15/2013 CHEM 14 5911977 CALCIUM 9.3 MG/DL 02/15/2013 CHEM 14 5218875 POTASSIUM 4.0 MMOL/L 02/15/2013 CHEM 14 7738063 PROT TOT 6.9 GM/DL 02/15/2013 CHEM 14 6078933 GLUCOSE 99 MG/DL 02/15/2013 CHEM 14 7941752 BICARB 29 MMOL/L 02/15/2013 CHEM 14 5825193 ANION GAP 4 MEQ/L 02/15/2013 GFR CALC 4355485 GFR AA >60 ML/MIN 02/15/2013 GFR CALC 6370360 GFR NON-AA >60 ML/MIN 02/15/2013 LIPID GRP HDL TEST 38 MG/DL 02/15/2013 LIPID GRP TRIG 126 MG/DL 02/15/2013 LIPID GRP TEST LDL 112 MG/DL 02/15/2013 LIPID GRP CHOL 175 MG/DL 02/15/2013 LIPID GRP RCHOL/HDL 4.61 RATIO 02/15/2013 CBC 9947724 WBC 5.8 10e9/L 02/15/2013 CBC 7151436 RBC 4.51 10e12/L 02/15/2013 CBC 4103257 HGB 13.8 g/dL 02/15/2013 CBC 9439792 HCT DET 39.0 % 02/15/2013 CBC 2045419 MCV 86.5 fL 02/15/2013 CBC 0073476 MCH 30.6 pg 02/15/2013 CBC 2785773 MCHC 35.4 g/dL 02/15/2013 CBC 1398028 PLT 284 10e9/L 02/15/2013 CBC 5479777 MPV 10.3 fL 02/15/2013 CBC 2148542 BLANQUITA % 62.9 % 02/15/2013 CBC 2133974 LY % 26.8 % 02/15/2013 CBC 0650082 MON % 9.1 % 02/15/2013 CBC 2120269 EOS % 1.2 % 02/15/2013 CBC 0644951 BASO % 0.0 % 02/15/2013 CBC 9306212 RDW 14.4 % 02/15/2013 CBC 6227517 ABS BLANQUITA 3.65 10e9/L 02/15/2013 CBC 3607129 ABS LYMPH 1.55 10e9/L 02/15/2013 CBC 8961154 ABS MONO 0.53 10e9/L 02/15/2013 CBC 0735299 ABS EOS 0.07 10e9/L 02/15/2013 CBC 6712962 ABS BASO 0.00 10e9/L 02/15/2013 CBC 1780851 RDW-SD 44.0 fL 02/15/2013 Review of Systems [...] clear 06/18/2017 None Full Exam - General 1995 Ears/Nose/Throat oral cavity/pharynx/larynx Overall: oropharyngeal mucosa clear 06/18/2017 None Full Exam - General 1995 Ears/Nose/Throat oral cavity/pharynx/larynx Overall: no masses 06/18/2017 [...] sounds 02/16/2012 None Full Exam - General 1995 Cardiovascular auscultation of heart Overall: no murmurs [...] PROBE (CHYLMD TRACH DNA AMP PROBE) CPT-4: 37274 04/24/2014 GC PROBE (N.GONORRHOEAE DNA AMP PROB) CPT-4: 72401 04/24/2014 ROUTINE VENIPUNCTURE CPT- 4: 28781 02/15/2013 PREV VISIT EST AGE 40-64 CPT-4: 08228 01/05/2012 ROCEPHIN, PER 250 MG CPT- 4: J0696 11/13/2011 THER/PROPH/DIAG INJ SC/IM CPT-4: 54416 11/13/2011 REMOVE IMPACTED EAR WAX UNI CPT-4: 40558 11/13/2011 Vital Signs Date Vital 10/26/2018 Blood Pressure 1: 140/76 Code: 8480-6 BMI: 31.5 Code: 45173-2 Heart Rate 1: 79 bpm Height: 5'8" SpO2: 98% Weight: 207 lbs 02/22/2018 Blood Pressure 1: 132/70 Code: 8480-6 BMI: 33.1 Code: 99778-5 Heart Rate 1: 75 bpm Height: 5'8" SpO2: 97% Weight: 218 lbs 01/21/2018 Blood Pressure 1: 122/78 Code: 8480-6 Heart Rate 1: 73 bpm Height: 5'8" SpO2: 98% Weight: 09/01/2017 Blood Pressure 1: 134/82 Code: 8480-6 Heart Rate 1: 80 bpm Height: SpO2: 98% Weight: 06/18/2017 Blood Pressure 1: 122/76 Code: 8480-6 BMI: 30.7 Code: 46011-2 Heart Rate 1: 78 bpm Height: 5'8" SpO2: 98% Weight: 202 lbs 02/19/2017 Blood Pressure 1: 132/70 Code: 8480-6 BMI: 30.1 Code: 71410-8 Heart Rate 1: 72 bpm Height: 5'8" SpO2: 98% Weight: 198 lbs 02/05/2017 Blood Pressure 1: 124/84 Code: 8480-6 BMI: 29.3 Code: 07163-5 Heart Rate 1: 98 bpm Height: 5'8" SpO2: 98% Weight: 193 lbs 11/20/2016 Blood Pressure 1: 130/86 Code: 8480-6 BMI: 30.0 Code: 11094-5 Heart Rate 1: 90 bpm Height: 5'8" SpO2: 99% Weight: 197 lbs 09/26/2016 Blood Pressure 1: 124/84 Code: 8480-6 Heart Rate 1: 74 bpm SpO2: 97% Weight: 203 lbs 08/25/2016 Blood Pressure 1: 124/86 Code: 8480-6 BMI: 31.0 Code: 49640-6 Heart Rate 1: 90 bpm Height: 5'8" SpO2: 95% Weight: 204 lbs 12/13/2015 Blood Pressure 1: 112/80 Code: 8480-6 BMI: 31.5 Code: 47690-9 Heart Rate 1: 87 bpm Height: 5'8" SpO2: 97% Weight: 207 lbs 11/15/2015 Blood Pressure 1: 146/78 Code: 8480-6 BMI: 32.1 Code: 45259-1 Heart Rate 1: 96 bpm Height: 5'8" SpO2: 97% Weight: 211 lbs 06/28/2015 Blood Pressure 1: 132/64 Code: 8480-6 BMI: 29.5 Code: 97477-8 Heart Rate 1: 91 bpm Height: 5'8" SpO2: 98% Weight: 194 lbs 05/23/2014 Blood Pressure 1: 124/80 Code: 8480-6 BMI: 30.3 Code: 72772-6 Heart Rate 1: 68 bpm Height: 5'8" Weight: 199 lbs 04/24/2014 Blood Pressure 1: 132/72 Code: 8480-6 BMI: 30.7 Code: 27604-3 Heart Rate 1: 82 bpm Height: 5'8" SpO2: 98% Weight: 202 lbs 02/14/2013 Blood Pressure 1: 122/80 Code: 8480-6 BMI: 28.6 Code: 43501-6 Heart Rate 1: 84 bpm Height: 5'8" Respiratory Rate: 16 bpm Weight: 188 lbs 02/16/2012 Blood Pressure 1: 104/66 Code: 8480-6 BMI: 28.5 Code: 88940-5 Heart Rate 1: 76 bpm Height: 5'7" Weight: 182 lbs 01/05/2012 Blood Pressure 1: 100/64 Code: 8480-6 BMI: 28.7 Code: 41753-4 Heart Rate 1: 78 bpm Height: 5'7" Respiratory Rate: 16 bpm Weight: 183 lbs 11/13/2011 Blood Pressure 1: 116/78 Code: 8480-6 Heart Rate 1: 84 bpm Respiratory Rate: 16 bpm SpO2: 98% Temperature: 36.7 (C) / 98.1 (F) Weight: 181 lbs 09/29/2011 Blood Pressure 1: 118/82 Code: 8480-6 BMI: 36.8 Code: 76646-3 Heart Rate 1: 72 bpm Height: 4'10" [...] the day. well woman exam (40-65 years) Breast/Emergency Medical Dispatcher Complaints breast pain 01/05/2012 pt states that [...] data Encounters Encounter Performer Location Codes Date (24088) PREV VISIT EST AGE 40-64 Diagnosis: Encounter for general adult medical examination without abnormal findings[ICD10: Z00.00] Bianca Jain MD, [facility] CPT-4: 65227 10/26/2018 [id number] EST. PATIENT, LEVEL III Diagnosis: Excessive and frequent menstruation with regular cycle[ICD10: N92.0] Maylin Jain MD, [facility] CPT-4: 52873 02/22/2018 ([id number]) 36226 EST. PATIENT, LEVEL III Diagnosis: Gastro-esophageal reflux disease with esophagitis[ICD10: K21.0] Unique Jain MD, [facility] CPT-4: 57782 01/21/2018 22075 EST. PATIENT, LEVEL III Diagnosis: Pain in left leg[ICD10: M79.605] Maylin Jain MD, [facility] CPT-4: 16201 09/01/2017 ([id number]) 61374 EST. PATIENT, LEVEL III Diagnosis: Generalized anxiety disorder[ICD10: F41.1] Unique Jain MD, [facility] CPT-4: 24090 06/18/2017 09780 EST. PATIENT, LEVEL IV Diagnosis: Pain in left shoulder[ICD10: M25.512] Diagnosis: Pain in right shoulder[ICD10: M25.511] Maylin Jain MD, [facility] CPT- 4: 30557 02/19/2017 ([id number]) PREV VISIT EST AGE 40-64 Diagnosis: Encounter for gynecological examination (general) (routine) without abnormal findings[ICD10: Z01.419] Bianca Jain MD, [facility] CPT-4: 02597 02/05/2017 ([id number]) 81631 EST. PATIENT, LEVEL III Diagnosis: Generalized anxiety disorder[ICD10: F41.1] Diagnosis: Other obesity due to excess calories[ICD10: E66.09] Bianca Jain MD, [facility] CPT-4: 43390 11/20/2016 ([id number]) Miscellaneous no charge Diagnosis: Other obesity due to excess calories[ICD10: E66.09] Maylin Jain MD, [facility] CPT-4: 63571 09/26/2016 ([id number]) 09486 EST. PATIENT, LEVEL IV Diagnosis: Generalized anxiety disorder[ICD10: F41.1] Diagnosis: Adjustment insomnia[ICD10: F51.02] Diagnosis: Other obesity due to excess calories[ICD10: E66.09] Unique Jain MD, [facility] CPT-4: 16614 08/25/2016 87286 EST. PATIENT, LEVEL IV Diagnosis: Dizziness and giddiness[ICD10: R42] Maylin Jain MD, [facility] CPT- 4: 14650 12/13/2015 18142 EST. PATIENT, LEVEL IV Diagnosis: Dizziness and giddiness[ICD10: R42] Diagnosis: Other chest pain[ICD10: R07.89] Maylin Jain MD, [facility] CPT-4: 78992 11/15/2015 ([id number]) 29086 EST. PATIENT, LEVEL III Diagnosis: GENERALIZED ANXIETY DISEASE[ICD9: 300.02] Diagnosis: Migraines[ICD9: 346.90] Unique Jain MD, [facility] CPT-4: 26530 06/28/2015 ([id number]) 53644 EST. PATIENT, LEVEL III Diagnosis: Right ankle pain[ICD9: 719.47] Diagnosis: Right ankle sprain[ICD9: 845.00] Unique Jain MD, [facility] CPT- 4: 07192 05/23/2014 ([id number]) PREV VISIT EST AGE 40-64 Diagnosis: ROUTINE GYNE EXAM[ICD9: V72.31] Diagnosis: Laboratory exam ordered as part of routine general medical examination[ICD9: V72.62] [facility] CPT-4: 79863 04/24/2014 ([id number]) PREV VISIT EST AGE 40-64 Diagnosis: Well woman exam with routine gynecological exam[ICD9: V72.31] [facility] CPT-4: 06586 02/14/2013 72995 EST. PATIENT, LEVEL IV Diagnosis: Numbness in both legs[ICD9: 782.0] Diagnosis: Myalgia[ICD9: 729.1] Unique Jain MD, [facility] CPT-4: 71899 02/16/2012 ([id number]) 58779 EST. PATIENT, LEVEL IV Diagnosis: Acute maxillary sinusitis[ICD9: 461.0] Diagnosis: Cough[ICD9: 786.2] Diagnosis: Cerumen impaction[ICD9: 380.4] Bianca Jain MD, [facility] CPT-4: 44156 11/13/2011 ([id number]) OFFICE VISIT, NEW - LEVEL 3 Diagnosis: GENERALIZED ANXIETY DISEASE[ICD9: 300.02] Diagnosis: DEPRESSIVE DISORDER NEC[ICD9: 311] Diagnosis: Impacted cerumen[ICD9: 380.4] Diagnosis: HEARING LOSS[ICD9: 389.9] Bianca Jain MD, [facility] CPT-4: 10693 09/29/2011 Plan of Care Planned Activity Notes [...] renal functioning. 10/26/2018 Appointment: Bianca Jain WPtel: [address] [place], [place] [id number] (15 min) Moderate 10/26/2018 Patient Education: Patient Medication Summary Completed 10/26/2018 Care Plan: Cbc With Differential Cancelled 02/23/2018 Care Plan: Bhcg Qual Cancelled 02/23/2018 Care Plan: Referral Order SNOMED-CT : [id number] Pending 02/23/2018 Visit Plan: Excessive menstrual bleeding and irregular menstruation - pt would like to be referred to OB and would like to know about a possible hysterectomy - will refer - pt is to notify clinic if symptoms do not improve, if they worsen, or with any changes, questions, or concerns. 02/22/2018 Appointment: Maylin Chowdhury WPtel: [facility] [place] [place] (15 min) Moderate 02/22/2018 Patient Education: [...] improve. 09/01/2017 Appointment: Maylin Chowdhury WPtel: [phone] [facility] (30 min) Complex 09/01/2017 Patient Education: Patient Medication Summary Completed 09/01/2017 Appointment: Bianca Jain WPtel: [facility]1 [facility] [place] (15 min) Moderate 07/29/2017 Visit Plan: [...] 02/19/2017 Appointment: Maylin Chowdhury WPtel: [facility] [place] (15 min) Moderate 02/19/2017 Patient Education: [...] PAP Pending 02/05/2017 Appointment: Bianca Jain WPtel: [facility]7 [facility]66[facility] 01/22/2017 Visit Plan: Obesity - chronic issue with this patient. The pt has been counseled about diet changes, calorie restriction, and need to exercise. Pt will RTC in one month for weight check. Anxiety - refill anxiolytic 11/20/2016 Appointment: Bianca Jain WPtel: [facility] Well [facility] 11/20/2016 Patient Education: Patient [...] situational exposure. No change in current medications. Cydeqxsz-eogkrnzqfi-mpziqn ambien for prn use Obesity - chronic [...] situational exposure. No change in current medications. Bslgpoic-ffychsacyy-vfecbd ambien for prn use Obesity - chronic issue with this patient. The pt has been counseled about diet changes, calorie restriction, and need to exercise. Pt will RTC in one month for weight check. 08/25/2016 Appointment: Unique Nichole WPtel: [facility] [place] [id number] ([facility] min[facility] Moderate 08/25/2016 Patient Education: Patient [...] pt consult with Dr. Shun Harrison at [facility]. Migraine headaches - start on topamax. 04/24/2014 Appointment: Bianca Jain WPtel: [address] [place], [place] [phone] [place] Pap Only 04/24/2014 Patient Education: Patient Medication Summary Completed 04/24/2014 Care Plan: PAP Pending 04/24/2014 Appointment: Unique Nichole WPtel: [address] [place], [place] [phone] Other 05/31/2013 Patient Education: Patient Medication Summary [...] Summary Completed 02/14/2013 Appointment: Bianca Jain WPtel: [address] [place], [place] [phone] Pap Only 01/31/2013 Appointment: Unique Nichole WPtel: [address] [place], [place] [phone] Other 09/13/2012 Visit Plan: Numbness-bilateral lower zga-ufafqtmt-lpol to check labs including chem panel to evaluate electrolytes as well as blood sugar, cbc, and b12 level. Recommend patient start on a multivitamin daily and drink plenty of fluids. Will call patient with labs results. Instructed patient to call with any concerns or worsening symptoms. Patient verbalized understanding of plan. 02/16/2012 Appointment: Unique Nichole WPtel: [facility]6 [phone] Other 02/16/2012 Patient Education: Patient Medication [...] skin cancer. 01/05/2012 Appointment: Bianca Jain WPtel: [address] Pap Only 01/05/2012 Patient Education: [...] not improved. 11/13/2011 Appointment: Bianca Jain WPtel: [phone] [facility] [facility] 11/13/2011 Patient Education: Patient Medication Summary Completed [...] stabilized during the removal process. 09/29/2011 Appointment: Crist[phone] [facility] 09/29/2011 Patient Education: Patient [...] situational exposure. No change in current medications. Swwenykb-bjbotlnkhk-vbvyzg ambien for prn use Obesity - chronic [...] situational exposure. No change in current medications. Lbdcvlhy-lmrgwhknch-rneqgy ambien for prn use Obesity - chronic [...] symptoms worsen, or with any other concerns. [facility] shun harrison and saritha quick [...] pt consult with Dr. Shun Harrison at [facility]. Migraine headaches - start on topamax. Check labs-cbc, cmp, b12 level. . Numbness-bilateral lower xjh-lbecuihx-tjhe to check labs including chem panel to [...]
[2019-03-03] MEDS ORDERED: MIDAZOLAM 2 MG/2 ML (VERSED) VIAL ONE (06:52)
--- OUTSIDE RECORDS SUMMARY | 2019-03-03 06:54 | XMS REPORT | CCD ---
Author Author [facility]ca [facility] Organization [facility] Address [address] [place] [address] Phone Care Team Providers Care Application Integration Specialist Name Role Phone Bianca Jain PP Unavailable CCM Unavailable Summary Purpose Interface Exchange Insurance Providers Payer name Policy type / Coverage type Covered libertarian ID Effective Begin Date Effective End Date [employer] Insurance [id number] 2018 Unknown Family history Brother Diagnosis Age [...] Effective Dates Employment Unknown Currently employed [employer] Registration 11/20/2016 Marital status Unknown 01/05/[address]: 261452582 Never smoker 09/29/[address]: 733168 Currently drinks alcohol 3 weekly 09/29/2011 Has [...] Fill Instructions atorvastatin 20 mg tablet RxNorm: 233603 1 Tablet(s) PO daily 11/04/2018 03/03/2019 Active atorvastatin 20 mg tablet RxNorm: 479000 1 Tablet(s) PO daily 11/04/2018 11/03/2018 Inactive Ambien 10 mg tablet RxNorm: 097793 Tablet(s) TAKE ONE TABLET BY MOUTH AT BEDTIME NEEDED 10/26/2018 11/24/2018 Active topiramate 25 mg tablet RxNorm: 775566 TAKE 1 TABLET BY MOUTH TWICE DAILY 10/26/2018 No Stop Date Active Xanax 0.5 mg tablet RxNorm: 591350 1 Tablet(s) PO Q8 as needed anxiety 10/26/2018 11/24/2018 Active Xanax 0.5 mg tablet RxNorm: 471718 Tablet(s) TAKE ONE TABLET BY MOUTH EVERY 8 HOURS NEEDED FOR ANXIETY 08/27/2018 10/24/2018 Inactive Ambien 10 mg tablet RxNorm: 809856 Tablet(s) TAKE ONE TABLET BY MOUTH AT BEDTIME NEEDED 08/27/2018 No Stop Date Active Ambien 10 mg tablet RxNorm: 949078 Tablet(s) TAKE ONE TABLET BY MOUTH AT BEDTIME NEEDED 07/29/2018 08/26/2018 Inactive Lexapro 10 mg tablet RxNorm: 203060 TAKE 1 TABLET BY MOUTH IN THE EVENING 07/27/2018 No Stop Date Active Xanax 0.5 mg tablet RxNorm: 675492 1 Tablet(s) PO Q8 as needed anxiety 06/18/2018 09/15/2018 Inactive Xanax 0.5 mg tablet RxNorm: 800843 Tablet(s) TAKE ONE TABLET BY MOUTH EVERY 8 HOURS NEEDED FOR ANXIETY 06/18/2018 08/15/2018 Inactive Ambien 10 mg tablet RxNorm: 285541 1 Tablet(s) PO HS PRN TAKE ONE TABLET BY MOUTH AT BEDTIME NEEDED 05/20/2018 10/25/2018 Inactive topiramate 25 mg tablet RxNorm: 227266 TAKE ONE TABLET BY MOUTH TWICE DAILY 04/21/2018 10/25/2018 Inactive Xanax 0.5 mg tablet RxNorm: 410996 1 Tablet(s) PO Q8 as needed anxiety 03/24/2018 06/17/2018 Inactive Ambien 10 mg tablet RxNorm: 000076 1 Tablet(s) PO HS PRN TAKE ONE TABLET BY MOUTH AT BEDTIME NEEDED 02/22/2018 05/19/2018 Inactive naproxen 500 mg tablet RxNorm: 566693 1 Tablet(s) PO BID 02/22/2018 02/26/2018 Inactive Ambien 10 mg tablet RxNorm: 592184 TAKE ONE TABLET BY MOUTH AT BEDTIME NEEDED 02/19/2018 07/28/2018 Inactive Dexilant 60 mg capsule, delayed release RxNorm: 232422 1 Capsule(s) PO daily 01/21/2018 No Stop Date Active Xanax 0.5 mg tablet RxNorm: 292570 Tablet(s) TAKE ONE TABLET BY MOUTH EVERY 8 HOURS NEEDED FOR ANXIETY 01/19/2018 03/17/2018 Inactive Lexapro 10 mg tablet RxNorm: 333836 TAKE ONE TABLET BY MOUTH IN THE EVENING 01/18/2018 07/26/2018 Inactive Xanax 0.5 mg tablet RxNorm: 814531 1 Tablet(s) PO Q8 PRN TAKE ONE TABLET BY MOUTH EVERY 8 HOURS NEEDED FOR ANXIETY 12/17/2017 01/14/2018 Inactive topiramate 25 mg tablet RxNorm: 630900 TAKE ONE TABLET BY MOUTH TWICE DAILY 10/13/2017 04/20/2018 Inactive K-Dur 10 mEq tablet,extended release RxNorm: 905921 1 Tablet(s) PO daily 09/11/2017 09/11/2017 Inactive potassium chloride ER 10 mEq tablet,extended release RxNorm: 277014 1 Tablet(s) PO daily 09/11/2017 09/10/2017 Inactive Lasix 20 mg tablet RxNorm: 875298 1 Tablet(s) PO daily for three days 09/11/2017 09/10/2017 Inactive potassium chloride ER 10 mEq tablet,extended release RxNorm: 992833 1 Tablet(s) PO daily 09/11/2017 09/13/2017 Inactive Lasix 20 mg tablet RxNorm: 629487 1 Tablet(s) PO daily for three days 09/11/2017 09/13/2017 Inactive naproxen 500 mg tablet RxNorm: 428365 1 Tablet(s) PO BID 09/01/2017 09/05/2017 Inactive Ambien 10 mg tablet RxNorm: 727959 1 Tablet(s) PO HS PRN TAKE ONE TABLET BY MOUTH AT BEDTIME NEEDED 08/14/2017 02/22/2018 Inactive Xanax 0.5 mg tablet RxNorm: 544936 1 Tablet(s) PO Q8 PRN TAKE ONE TABLET BY MOUTH EVERY 8 HOURS NEEDED FOR ANXIETY 08/14/2017 01/18/2018 Inactive Lexapro 10 mg tablet RxNorm: 897888 TAKE ONE TABLET BY MOUTH IN THE EVENING 07/13/2017 01/08/2018 Inactive Xanax 0.5 mg tablet RxNorm: 567783 1 Tablet(s) PO Q8 PRN TAKE ONE TABLET BY MOUTH EVERY 8 HOURS NEEDED FOR ANXIETY 06/18/2017 07/16/2017 Inactive Xanax 0.25 mg tablet RxNorm: 374997 Tablet(s) TAKE ONE TABLET BY MOUTH EVERY 8 HOURS NEEDED FOR ANXIETY 06/17/2017 06/17/2017 Inactive Ambien 10 mg tablet RxNorm: 340901 1 Tablet(s) PO QHS as needed insomnia 06/17/2017 08/17/2017 Inactive topiramate 25 mg tablet RxNorm: 366030 TAKE ONE TABLET BY MOUTH TWICE DAILY 06/16/2017 10/12/2017 Inactive Lexapro 10 mg tablet RxNorm: 940539 TAKE ONE TABLET BY MOUTH IN THE EVENING 04/17/2017 07/12/2017 Inactive Ambien 10 mg tablet RxNorm: 922503 1 Tablet(s) PO QHS as needed insomnia 04/17/2017 01/18/2018 Inactive Xanax 0.25 mg tablet RxNorm: 060931 Tablet(s) TAKE ONE TABLET BY MOUTH EVERY 8 HOURS NEEDED FOR ANXIETY 04/17/2017 06/13/2017 Inactive topiramate 25 mg tablet RxNorm: 452093 TAKE ONE TABLET BY MOUTH TWICE DAILY 03/20/2017 06/15/2017 Inactive Flagyl 500 mg tablet RxNorm: 627788 1 Tablet(s) PO TID do not drink alcohol when taking this medication 02/05/2017 02/09/2017 Inactive Ambien 10 mg tablet RxNorm: 054909 1 Tablet(s) PO QHS as needed insomnia 01/23/2017 04/21/2017 Inactive Xanax 0.25 mg tablet RxNorm: 136347 TAKE ONE TABLET BY MOUTH EVERY 8 HOURS NEEDED FOR ANXIETY 01/23/2017 04/21/2017 Inactive Xanax 0.25 mg tablet RxNorm: 290302 1 Tablet(s) PO TAKE ONE TABLET BY MOUTH EVERY 8 HOURS NEEDED FOR ANXIETY 11/28/2016 01/18/2018 Inactive Lexapro 10 mg tablet RxNorm: 754281 1 Tablet(s) PO QPM 11/20/2016 04/16/2017 Inactive topiramate 25 mg tablet RxNorm: 597439 1 Tablet(s) PO BID start one pill at hs, if migraines not improving, then increase to bid 11/20/2016 01/18/2018 Inactive Ambien 10 mg tablet RxNorm: 898584 1 Tablet(s) PO QHS as needed TAKE ONE TABLET BY MOUTH AT BEDTIME NEEDED FOR INSOMNIA 10/31/2016 01/18/2018 Inactive acyclovir 400 mg tablet RxNorm: 857817 1 Tablet(s) PO TID 10/01/2016 10/05/2016 Inactive acyclovir 400 mg tablet RxNorm: 293117 1 Tablet(s) PO TID 10/01/2016 09/30/2016 Inactive phentermine 37.5 mg tablet RxNorm: 895456 1 Tablet(s) PO daily 09/26/2016 02/04/2017 Inactive Xanax 0.25 mg tablet RxNorm: 383294 Tablet(s) TAKE ONE TABLET BY MOUTH EVERY 8 HOURS NEEDED FOR ANXIETY 08/25/2016 01/18/2018 Inactive Ambien 10 mg tablet RxNorm: 087732 1 Tablet(s) PO daily as needed TAKE ONE TABLET BY MOUTH AT BEDTIME NEEDED FOR INSOMNIA 08/25/2016 11/19/2016 Inactive phentermine 37.5 mg tablet RxNorm: 083415 1 Tablet(s) PO daily 08/25/2016 09/25/2016 Inactive topiramate 25 mg tablet RxNorm: 709551 TAKE ONE TABLET BY MOUTH TWICE DAILY 07/09/2016 08/24/2016 Inactive Xanax 0.25 mg tablet RxNorm: 680102 Tablet(s) TAKE ONE TABLET BY MOUTH EVERY 8 HOURS NEEDED FOR ANXIETY 04/28/2016 06/25/2016 Inactive Ambien 10 mg tablet RxNorm: 884486 1 Tablet(s) PO daily as needed TAKE ONE TABLET BY MOUTH AT BEDTIME NEEDED FOR INSOMNIA 04/28/2016 06/24/2016 Inactive topiramate 25 mg tablet RxNorm: 322663 1 Tablet(s) PO BID 02/20/2016 06/18/2016 Inactive Ambien 10 mg tablet RxNorm: 976883 1 Tablet(s) PO daily as needed TAKE ONE TABLET BY MOUTH AT BEDTIME NEEDED FOR INSOMNIA 01/03/2016 03/31/2016 Inactive (Response to an electronic controlled substance refill request - RxReferenceNumber: [id number]) Xanax 0.25 mg tablet RxNorm: 730307 Tablet(s) TAKE ONE TABLET BY MOUTH EVERY 8 HOURS NEEDED FOR ANXIETY 01/03/2016 01/18/2018 Inactive (Response to an electronic controlled substance refill request - RxReferenceNumber: [id number]) meclizine 25 mg tablet RxNorm: 127847 1 Tablet(s) PO QID 12/13/2015 01/11/2016 Inactive Xanax 0.25 mg tablet RxNorm: 578158 Tablet(s) TAKE ONE TABLET BY MOUTH EVERY 8 HOURS NEEDED FOR ANXIETY 11/23/2015 01/18/2018 Inactive (Response to an electronic controlled substance refill request - RxReferenceNumber: [id number]) topiramate 25 mg tablet RxNorm: 946666 1 Tablet(s) PO BID 11/02/2015 12/12/2015 Inactive pt needs to make an appt Ambien 10 mg tablet RxNorm: 057430 1 Tablet(s) PO daily as needed TAKE ONE TABLET BY MOUTH AT BEDTIME NEEDED FOR INSOMNIA 10/30/2015 11/19/2016 Inactive (Response to an electronic controlled substance refill request - RxReferenceNumber: [id number]) Xanax 0.25 mg tablet RxNorm: 784959 Tablet(s) TAKE ONE TABLET BY MOUTH EVERY 8 HOURS NEEDED FOR ANXIETY 09/20/2015 10/18/2015 Inactive (Response to an electronic controlled substance refill request - RxReferenceNumber: [id number]) Xanax 0.25 mg tablet RxNorm: 289197 Tablet(s) TAKE ONE TABLET BY MOUTH EVERY 8 HOURS NEEDED FOR ANXIETY 06/28/2015 08/25/2015 Inactive (Response to an electronic controlled substance refill request - RxReferenceNumber: [id number]) topiramate 25 mg tablet RxNorm: 360937 1 Tablet(s) PO BID 06/27/2015 10/24/2015 Inactive Ambien 10 mg tablet RxNorm: 556762 1 Tablet(s) PO daily as needed TAKE ONE TABLET BY MOUTH AT BEDTIME NEEDED FOR INSOMNIA 06/26/2015 09/23/2015 Inactive (Response to an electronic controlled substance refill request - RxReferenceNumber: [id number]) Xanax 0.25 mg tablet RxNorm: 913714 Tablet(s) TAKE ONE TABLET BY MOUTH EVERY 8 HOURS NEEDED FOR ANXIETY 04/04/2015 06/02/2015 Inactive (Response to an electronic controlled substance refill request - RxReferenceNumber: [id number]) Ambien 10 mg tablet RxNorm: 539025 1 Tablet(s) PO daily as needed TAKE ONE TABLET BY MOUTH AT BEDTIME NEEDED FOR INSOMNIA 02/16/2015 05/16/2015 Inactive (Response to an electronic controlled substance refill request - RxReferenceNumber: [id number]) Ambien 10 mg tablet RxNorm: 398843 TAKE ONE TABLET BY MOUTH AT BEDTIME NEEDED FOR INSOMNIA 01/11/2015 02/09/2015 Inactive (Response to an electronic controlled substance refill request - RxReferenceNumber: [id number]) Ambien 10 mg tablet RxNorm: 808229 1 Tablet(s) PO QHS as needed TAKE ONE TABLET BY MOUTH AT BEDTIME NEEDED 01/11/2015 01/11/2015 Inactive (Appended: Controlled substance eRx refill - RxReferenceNumber: [id number]) topiramate 25 mg tablet RxNorm: 512679 1 Tablet(s) PO BID 01/11/2015 05/10/2015 Inactive Xanax 0.25 mg tablet RxNorm: 632454 TAKE ONE TABLET BY MOUTH EVERY 8 HOURS NEEDED FOR ANXIETY 01/11/2015 02/09/2015 Inactive (Response to an electronic controlled substance refill request - RxReferenceNumber: [id number]) Xanax 0.25 mg tablet RxNorm: 932818 Tablet(s) TAKE ONE TABLET BY MOUTH EVERY 8 HOURS NEEDED FOR ANXIETY 01/11/2015 01/11/2015 Inactive (Response to an electronic controlled substance refill request - RxReferenceNumber: [id number]) Xanax 0.25 mg tablet RxNorm: 678733 Tablet(s) TAKE ONE TABLET BY MOUTH EVERY 8 HOURS NEEDED FOR ANXIETY 11/20/2014 12/17/2014 Inactive (Response to an electronic controlled substance refill request - RxReferenceNumber: [id number]) Xanax 0.25 mg tablet RxNorm: 388949 TAKE ONE TABLET BY MOUTH EVERY 8 HOURS NEEDED FOR ANXIETY 09/14/2014 10/13/2014 Inactive (Response to an electronic controlled substance refill request - RxReferenceNumber: [id number]) Xanax 0.25 mg tablet RxNorm: 916063 Tablet(s) PO TAKE ONE TABLET BY MOUTH EVERY 8 HOURS NEEDED FOR ANXIETY 09/12/2014 09/15/2014 Inactive (Appended: Controlled substance eRx refill - RxReferenceNumber: [id number]) Xanax 0.25 mg tablet RxNorm: 417448 TAKE ONE TABLET BY MOUTH EVERY 8 HOURS NEEDED FOR ANXIETY 07/31/2014 07/31/2014 Inactive (Response to an electronic controlled substance refill request - RxReferenceNumber: [id number]) Ambien 10 mg tablet RxNorm: 203036 TAKE ONE TABLET BY MOUTH AT BEDTIME NEEDED FOR INSOMNIA 07/31/2014 11/19/2016 Inactive (Response to an electronic controlled substance refill request - RxReferenceNumber: [id number]) Xanax 0.25 mg tablet RxNorm: 006547 TAKE ONE TABLET BY MOUTH EVERY 8 HOURS NEEDED FOR ANXIETY 07/31/2014 08/29/2014 Inactive (Response to an electronic controlled substance refill request - RxReferenceNumber: [id number]) metronidazole 500 mg tablet RxNorm: 815872 1 Tablet(s) PO TID 05/25/2014 05/31/2014 Inactive Diflucan 150 mg tablet RxNorm: 873237 1 Tablet(s) PO daily 05/25/2014 05/29/2014 Inactive topiramate 25 mg tablet RxNorm: 000551 1 Tablet(s) PO BID 04/24/2014 11/19/2014 Inactive Xanax 0.25 mg tablet RxNorm: 517486 Tablet(s) PO TAKE ONE TABLET BY MOUTH EVERY 8 HOURS NEEDED FOR ANXIETY 01/17/2014 07/31/2014 Inactive (Appended: Controlled substance eRx refill - RxReferenceNumber: [id number]) Xanax 0.25 mg tablet RxNorm: 961476 Tablet(s) PO TAKE ONE TABLET BY MOUTH EVERY 8 HOURS NEEDED FOR ANXIETY 01/16/2014 01/17/2014 Inactive (Appended: Controlled substance eRx refill - RxReferenceNumber: [id number]) Xanax 0.25 mg tablet RxNorm: 547073 Tablet(s) PO TAKE ONE TABLET BY MOUTH EVERY 8 HOURS NEEDED FOR ANXIETY 01/13/2014 09/11/2014 Inactive (Appended: Controlled substance eRx refill - RxReferenceNumber: [id number]) Xanax 0.25 mg tablet RxNorm: 133197 Tablet(s) PO TAKE ONE TABLET BY MOUTH EVERY 8 HOURS NEEDED FOR ANXIETY 11/21/2013 01/16/2014 Inactive (Appended: Controlled substance eRx refill - RxReferenceNumber: [id number]) Xanax 0.25 mg tablet RxNorm: 802774 Tablet(s) PO TAKE ONE TABLET BY MOUTH EVERY 8 HOURS NEEDED FOR ANXIETY 11/18/2013 01/15/2014 Inactive (Appended: Controlled substance eRx refill - RxReferenceNumber: [id number]) Ambien 10 mg tablet RxNorm: 406674 Tablet(s) PO TAKE ONE TABLET BY MOUTH EVERY DAY AT BEDTIME NEEDED 08/31/2013 07/31/2014 Inactive (Appended: Controlled substance eRx refill - RxReferenceNumber: [id number]) Ambien 10 mg tablet RxNorm: 136825 Tablet(s) PO TAKE ONE TABLET BY MOUTH EVERY DAY AT BEDTIME NEEDED 08/31/2013 08/30/2013 Inactive (Appended: Controlled substance eRx refill - RxReferenceNumber: [id number]) Xanax 0.25 mg tablet RxNorm: 043229 Tablet(s) PO TAKE ONE TABLET BY MOUTH EVERY 8 HOURS NEEDED FOR ANXIETY 07/21/2013 11/21/2013 Inactive (Appended: Controlled substance eRx refill - RxReferenceNumber: [id number]) Xanax 0.25 mg tablet RxNorm: 924698 Tablet(s) PO TAKE ONE TABLET BY MOUTH EVERY 8 HOURS NEEDED FOR ANXIETY 07/19/2013 07/21/2013 Inactive (Appended: Controlled substance eRx refill - RxReferenceNumber: [id number]) omeprazole 20 mg capsule,delayed release RxNorm: 255323 Capsule(s) PO TAKE ONE CAPSULE BY MOUTH EVERY DAY 05/23/2013 04/23/2014 Inactive Flagyl 500 mg tablet RxNorm: 046930 1 Tablet(s) PO BID 02/21/2013 02/20/2013 Inactive Flagyl 500 mg tablet RxNorm: 337760 1 Tablet(s) PO BID 02/21/2013 02/27/2013 Inactive fluconazole 150 mg tablet RxNorm: 944831 1 Tablet(s) PO PRN one pill as needed for yeast infection symptoms 02/14/2013 04/23/2014 Inactive Xanax 0.25 mg tablet RxNorm: 558171 Tablet(s) PO TAKE ONE TABLET BY MOUTH EVERY 8 HOURS NEEDED FOR ANXIETY 02/03/2013 11/20/2013 Inactive (Appended: Controlled substance eRx refill - RxReferenceNumber: [id number]) Ambien 10 mg tablet RxNorm: 870350 Tablet(s) PO TAKE ONE TABLET BY MOUTH AT BEDTIME NEEDED 02/03/2013 08/31/2013 Inactive (Appended: Controlled substance eRx refill - RxReferenceNumber: [id number]) Ambien 10 mg tablet RxNorm: 783439 Tablet(s) PO TAKE ONE TABLET BY MOUTH AT BEDTIME NEEDED 02/03/2013 01/10/2015 Inactive (Appended: Controlled substance eRx refill - RxReferenceNumber: [id number]) Xanax 0.25 mg tablet RxNorm: 565422 Tablet(s) PO 02/03/2013 07/20/2013 Inactive TAKE ONE TABLET BY MOUTH EVERY 8 HOURS NEEDED FOR ANXIETY (Appended: Controlled substance eRx refill - RxReferenceNumber: [id number]) Xanax 0.25 mg tablet RxNorm: 644933 Tablet(s) PO TAKE ONE TABLET BY MOUTH EVERY 8 HOURS NEEDED FOR ANXIETY 12/08/2012 02/03/2013 Inactive (Appended: Controlled substance eRx refill - RxReferenceNumber: [id number]) Ambien 10 mg tablet RxNorm: 278529 Tablet(s) PO TAKE ONE TABLET BY MOUTH AT BEDTIME NEEDED 12/08/2012 02/02/2013 Inactive (Appended: Controlled substance eRx refill - RxReferenceNumber: [id number]) Xanax 0.25 mg tablet RxNorm: 788510 Tablet(s) PO TAKE ONE TABLET BY MOUTH EVERY 8 HOURS NEEDED FOR ANXIETY 12/08/2012 12/07/2012 Inactive (Appended: Controlled substance eRx refill - RxReferenceNumber: [id number]) Ambien 10 mg tablet RxNorm: 572146 Tablet(s) PO TAKE ONE TABLET BY MOUTH AT BEDTIME NEEDED 12/08/2012 02/03/2013 Inactive (Appended: Controlled substance eRx refill - RxReferenceNumber: [id number]) Ambien 10 mg tablet RxNorm: 232512 Tablet(s) PO 08/27/2012 12/08/2012 Inactive TAKE ONE TABLET BY MOUTH AT BEDTIME NEEDED (Appended: Controlled substance eRx refill - RxReferenceNumber: [id number]) Xanax 0.25 mg tablet RxNorm: 486146 Tablet(s) PO 08/24/2012 02/02/2013 Inactive TAKE ONE TABLET BY MOUTH EVERY 8 HOURS NEEDED FOR ANXIETY (Appended: Controlled substance eRx refill - RxReferenceNumber: [id number]) Ambien 10 mg tablet RxNorm: 469766 Tablet(s) PO 08/24/2012 08/27/2012 Inactive TAKE ONE TABLET BY MOUTH AT BEDTIME NEEDED (Appended: Controlled substance eRx refill - RxReferenceNumber: [id number]) Xanax 0.25 mg tablet RxNorm: 931114 Tablet(s) PO 08/24/2012 12/08/2012 Inactive TAKE ONE TABLET BY MOUTH EVERY 8 HOURS NEEDED FOR ANXIETY (Appended: Controlled substance eRx refill - RxReferenceNumber: [id number]) Xanax 0.25 mg tablet RxNorm: 808939 1 Tablet(s) PO Q8 PRN 07/09/2012 08/24/2012 Inactive omeprazole 20 mg capsule,delayed release RxNorm: 910587 1 Capsule(s) PO daily 05/19/2012 12/14/2012 Inactive Ambien 10 mg tablet RxNorm: 628324 1 Tablet(s) PO QHS 05/19/2012 08/24/2012 Inactive Xanax 0.25 mg tablet RxNorm: 176889 1 Tablet(s) PO Q8 PRN 03/16/2012 06/13/2012 Inactive Diflucan 150 mg Tab RxNorm: 261034 1 Tablet(s) PO daily 01/05/2012 01/14/2012 Inactive Ambien 10 mg tablet RxNorm: 220177 1 Tablet(s) PO QHS 01/02/2012 04/30/2012 Inactive Ambien 10 mg Tab RxNorm: 646332 1 Tablet(s) PO QHS 12/24/2011 01/01/2012 Inactive Rocephin 500 mg Solution for Injection RxNorm: 853657 1 Milliliter(s) Inj 11/13/2011 11/13/2011 Inactive omeprazole 20 mg capsule,delayed release RxNorm: 624481 1 Capsule(s) PO daily 10/07/2011 05/18/2012 Inactive omeprazole 20 mg Cap, Delayed Release RxNorm: 891914 1 Capsule(s) PO daily 10/07/2011 04/03/2012 Inactive Ambien 5 mg Tab RxNorm: 918514 1 Tablet(s) PO QHS 1 tab q hs prn insomnia 10/07/2011 12/23/2011 Inactive Xanax 0.25 mg Tab RxNorm: 079230 1 Tablet(s) PO Q8 PRN 09/29/2011 03/15/2012 Inactive Medication Administered Medication Codes Instructions Start Date Status Rocephin 500 mg Solution for Injection RxNorm: 126676 1Milliliter 11/13/2011 No longer Active Immunizations Vaccine [...] Item Item Code Result Date GC/CHL PRB 2316637 CHLM PROBE NEG 04/26/2014 GC/CHL PRB 4420887 GC PROBE NEG 04/26/2014 TSH 8270350 TSH 2.977 uIU/ML 02/16/2013 GC/CHL PRB 8119214 SOURCE KIMBERLYN UNKNOWN 02/15/2013 GC/CHL PRB 2811041 CHLM PROBE NEG 02/15/2013 GC/CHL PRB 6546226 GC PROBE NEG 02/15/2013 CHEM 14 7708730 AST 12 U/L 02/15/2013 CHEM 14 9821784 ALT 16 IU/L 02/15/2013 CHEM 14 0739836 BUN 13 MG/DL 02/15/2013 CHEM 14 1847199 ALBUMIN 4.6 GM/DL 02/15/2013 CHEM 14 2278855 CHLORIDE 104 MMOL/L 02/15/2013 CHEM 14 0847163 BILI TOT 0.5 MG/DL 02/15/2013 CHEM 14 8785538 ALK PHOS 55 U/L 02/15/2013 CHEM 14 3360318 SODIUM 137 MMOL/L 02/15/2013 CHEM 14 3025190 CREATININE 0.79 MG/DL 02/15/2013 CHEM 14 1925909 CALCIUM 9.3 MG/DL 02/15/2013 CHEM 14 3279592 POTASSIUM 4.0 MMOL/L 02/15/2013 CHEM 14 7598928 PROT TOT 6.9 GM/DL 02/15/2013 CHEM 14 5034600 GLUCOSE 99 MG/DL 02/15/2013 CHEM 14 4868014 BICARB 29 MMOL/L 02/15/2013 CHEM 14 6675355 ANION GAP 4 MEQ/L 02/15/2013 GFR CALC 8764893 GFR AA >60 ML/MIN 02/15/2013 GFR CALC 1666738 GFR NON-AA >60 ML/MIN 02/15/2013 LIPID GRP HDL TEST 38 MG/DL 02/15/2013 LIPID GRP TRIG 126 MG/DL 02/15/2013 LIPID GRP TEST LDL 112 MG/DL 02/15/2013 LIPID GRP CHOL 175 MG/DL 02/15/2013 LIPID GRP RCHOL/HDL 4.61 RATIO 02/15/2013 CBC 3275557 WBC 5.8 10e9/L 02/15/2013 CBC 4415076 RBC 4.51 10e12/L 02/15/2013 CBC 0322143 HGB 13.8 g/dL 02/15/2013 CBC 4977713 HCT DET 39.0 % 02/15/2013 CBC 0370093 MCV 86.5 fL 02/15/2013 CBC 7548980 MCH 30.6 pg 02/15/2013 CBC 9041377 MCHC 35.4 g/dL 02/15/2013 CBC 5149402 PLT 284 10e9/L 02/15/2013 CBC 9857377 MPV 10.3 fL 02/15/2013 CBC 0941410 BLANQUITA % 62.9 % 02/15/2013 CBC 4238868 LY % 26.8 % 02/15/2013 CBC 8463342 MON % 9.1 % 02/15/2013 CBC 7695851 EOS % 1.2 % 02/15/2013 CBC 3647409 BASO % 0.0 % 02/15/2013 CBC 4196759 RDW 14.4 % 02/15/2013 CBC 3414026 ABS BLANQUITA 3.65 10e9/L 02/15/2013 CBC 9573663 ABS LYMPH 1.55 10e9/L 02/15/2013 CBC 0627253 ABS MONO 0.53 10e9/L 02/15/2013 CBC 9522128 ABS EOS 0.07 10e9/L 02/15/2013 CBC 3891449 ABS BASO 0.00 10e9/L 02/15/2013 CBC 7797169 RDW-SD 44.0 fL 02/15/2013 Review of Systems [...] clear 10/26/2018 None Full Exam - General 1995 Ears/Nose/Throat oral cavity/pharynx/larynx Overall: oropharyngeal mucosa clear 10/26/2018 None Full Exam - General 1995 Ears/Nose/Throat oral cavity/pharynx/larynx Overall: no masses 10/26/2018 [...] nourished 06/18/2017 None Full Exam - General 1995 Eyes conjunctiva/eyelids Overall: conjunctiva clear 06/18/2017 None [...] accomodation 09/29/2011 None Full Exam - General 1995 [...] PROBE (CHYLMD TRACH DNA AMP PROBE) CPT-4: 21952 04/24/2014 GC PROBE (N.GONORRHOEAE DNA AMP PROB) CPT-4: 58987 04/24/2014 ROUTINE VENIPUNCTURE CPT- 4: 18606 02/15/2013 PREV VISIT EST AGE 40-64 CPT-4: 87025 01/05/2012 ROCEPHIN, PER 250 MG CPT- 4: J0696 11/13/2011 THER/PROPH/DIAG INJ SC/IM CPT-4: 90214 11/13/2011 REMOVE IMPACTED EAR WAX UNI CPT-4: 40938 11/13/2011 Vital Signs Date Vital 10/26/2018 Blood Pressure 1: 140/76 Code: 8480-6 BMI: 31.5 Code: 13835-3 Heart Rate 1: 79 bpm Height: 5'8" SpO2: 98% Weight: 207 lbs 02/22/2018 Blood Pressure 1: 132/70 Code: 8480-6 BMI: 33.1 Code: 59067-5 Heart Rate 1: 75 bpm Height: 5'8" SpO2: 97% Weight: 218 lbs 01/21/2018 Blood Pressure 1: 122/78 Code: 8480-6 Heart Rate 1: 73 bpm Height: 5'8" SpO2: 98% Weight: 09/01/2017 Blood Pressure 1: 134/82 Code: 8480-6 Heart Rate 1: 80 bpm Height: SpO2: 98% Weight: 06/18/2017 Blood Pressure 1: 122/76 Code: 8480-6 BMI: 30.7 Code: 82574-5 Heart Rate 1: 78 bpm Height: 5'8" SpO2: 98% Weight: 202 lbs 02/19/2017 Blood Pressure 1: 132/70 Code: 8480-6 BMI: 30.1 Code: 69363-3 Heart Rate 1: 72 bpm Height: 5'8" SpO2: 98% Weight: 198 lbs 02/05/2017 Blood Pressure 1: 124/84 Code: 8480-6 BMI: 29.3 Code: 05495-7 Heart Rate 1: 98 bpm Height: 5'8" SpO2: 98% Weight: 193 lbs 11/20/2016 Blood Pressure 1: 130/86 Code: 8480-6 BMI: 30.0 Code: 70074-9 Heart Rate 1: 90 bpm Height: 5'8" SpO2: 99% Weight: 197 lbs 09/26/2016 Blood Pressure 1: 124/84 Code: 8480-6 Heart Rate 1: 74 bpm SpO2: 97% Weight: 203 lbs 08/25/2016 Blood Pressure 1: 124/86 Code: 8480-6 BMI: 31.0 Code: 43457-6 Heart Rate 1: 90 bpm Height: 5'8" SpO2: 95% Weight: 204 lbs 12/13/2015 Blood Pressure 1: 112/80 Code: 8480-6 BMI: 31.5 Code: 08543-4 Heart Rate 1: 87 bpm Height: 5'8" SpO2: 97% Weight: 207 lbs 11/15/2015 Blood Pressure 1: 146/78 Code: 8480-6 BMI: 32.1 Code: 59444-4 Heart Rate 1: 96 bpm Height: 5'8" SpO2: 97% Weight: 211 lbs 06/28/2015 Blood Pressure 1: 132/64 Code: 8480-6 BMI: 29.5 Code: 14133-4 Heart Rate 1: 91 bpm Height: 5'8" SpO2: 98% Weight: 194 lbs 05/23/2014 Blood Pressure 1: 124/80 Code: 8480-6 BMI: 30.3 Code: 49607-4 Heart Rate 1: 68 bpm Height: 5'8" Weight: 199 lbs 04/24/2014 Blood Pressure 1: 132/72 Code: 8480-6 BMI: 30.7 Code: 99944-8 Heart Rate 1: 82 bpm Height: 5'8" SpO2: 98% Weight: 202 lbs 02/14/2013 Blood Pressure 1: 122/80 Code: 8480-6 BMI: 28.6 Code: 42536-7 Heart Rate 1: 84 bpm Height: 5'8" Respiratory Rate: 16 bpm Weight: 188 lbs 02/16/2012 Blood Pressure 1: 104/66 Code: 8480-6 BMI: 28.5 Code: 67336-8 Heart Rate 1: 76 bpm Height: 5'7" Weight: 182 lbs 01/05/2012 Blood Pressure 1: 100/64 Code: 8480-6 BMI: 28.7 Code: 17436-2 Heart Rate 1: 78 bpm Height: 5'7" Respiratory Rate: 16 bpm Weight: 183 lbs 11/13/2011 Blood Pressure 1: 116/78 Code: 8480-6 Heart Rate 1: 84 bpm Respiratory Rate: 16 bpm SpO2: 98% Temperature: 36.7 (C) / 98.1 (F) Weight: 181 lbs 09/29/2011 Blood Pressure 1: 118/82 Code: 8480-6 BMI: 36.8 Code: 41173-3 Heart Rate 1: 72 bpm Height: 4'10" [...] the day. 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 PATIENT, LEVEL III Diagnosis: Excessive and frequent menstruation with regular cycle[ICD10: N92.0] [facility] CPT-4: 24857 02/22/2018 ([id number]) 01989 EST. PATIENT, LEVEL III Diagnosis: Gastro-esophageal reflux disease with esophagitis[ICD10: K21.0] Unique Jain MD, [facility] CPT-4: 35767 01/21/2018 20903 EST. PATIENT, LEVEL III Diagnosis: Pain in left leg[ICD10: M79.605] [facility] CPT-4: 53126 09/01/2017 ([id number]) 30151 EST. PATIENT, LEVEL III Diagnosis: Generalized anxiety disorder[ICD10: F41.1] Unique Jain MD [facility] CPT-4: 98128 06/18/2017 52033 EST. PATIENT, LEVEL IV Diagnosis: Pain in left shoulder[ICD10: M25.512] Diagnosis: Pain in right shoulder[ICD10: M25.511] [facility] CPT- 4: 94985 02/19/2017 ([id number]) PREV VISIT EST AGE 40-64 Diagnosis: Encounter for gynecological examination (general) (routine) without abnormal findings[ICD10: Z01.419] [facility] CPT-4: 84276 02/05/2017 ([id number]) 90482 EST. PATIENT, LEVEL III Diagnosis: Generalized anxiety disorder[ICD10: F41.1] Diagnosis: Other obesity due to excess calories[ICD10: E66.09] [facility] CPT-4: 62273 11/20/2016 ([id number]) Miscellaneous no charge Diagnosis: Other obesity due to excess calories[ICD10: E66.09] [facility] CPT-4: 18434 09/26/2016 ([id number]) 43322 EST. PATIENT, LEVEL IV Diagnosis: Generalized anxiety disorder[ICD10: F41.1] Diagnosis: Adjustment insomnia[ICD10: F51.02] Diagnosis: Other obesity due to excess calories[ICD10: E66.09] [facility] CPT-4: 11562 08/25/2016 81712 EST. PATIENT, LEVEL IV Diagnosis: Dizziness and giddiness[ICD10: R42] [facility] CPT- 4: 08521 12/13/2015 10464 EST. PATIENT, LEVEL IV Diagnosis: Dizziness and giddiness[ICD10: R42] Diagnosis: Other chest pain[ICD10: R07.89] [facility] CPT-4: 33702 11/15/2015 ([id number]) 08882 EST. PATIENT, LEVEL III Diagnosis: GENERALIZED ANXIETY DISEASE[ICD9: 300.02] Diagnosis: Migraines[ICD9: 346.90] [facility] CPT-4: 98624 06/28/2015 ([id number]) 75041 EST. PATIENT, LEVEL III Diagnosis: Right ankle pain[ICD9: 719.47] Diagnosis: Right ankle sprain[ICD9: 845.00] [facility] CPT- 4: 43961 05/23/2014 ([id number]) PREV VISIT EST AGE 40-64 Diagnosis: ROUTINE GYNE EXAM[ICD9: V72.31] Diagnosis: Laboratory exam ordered as part of routine general medical examination[ICD9: V72.62] [facility] CPT-4: 03595 04/24/2014 ([id number]) PREV VISIT EST AGE 40-64 Diagnosis: Well woman exam with routine gynecological exam[ICD9: V72.31] [facility] CPT-4: 07829 02/14/2013 20504 EST. PATIENT, LEVEL IV Diagnosis: Numbness in both legs[ICD9: 782.0] Diagnosis: Myalgia[ICD9: 729.1] [facility] CPT-4: 95689 02/16/2012 ([id number]) 70083 EST. PATIENT, LEVEL IV Diagnosis: Acute maxillary sinusitis[ICD9: 461.0] Diagnosis: Cough[ICD9: 786.2] Diagnosis: Cerumen impaction[ICD9: 380.4] [facility] CPT-4: 40555 11/13/2011 ([id number]) OFFICE VISIT, NEW - LEVEL 3 Diagnosis: GENERALIZED ANXIETY DISEASE[ICD9: 300.02] Diagnosis: DEPRESSIVE DISORDER NEC[ICD9: 311] Diagnosis: Impacted cerumen[ICD9: 380.4] Diagnosis: HEARING LOSS[ICD9: 389.9] [facility] CPT-4: 12698 09/29/2011 Plan of Care Planned Activity Notes [...] renal functioning. 10/26/2018 Appointment: Bianca Jain WPtel: [facility] (15 min) Moderate 10/26/2018 Patient Education: Patient Medication Summary Completed 10/26/2018 Care Plan: Cbc With Differential Cancelled 02/23/2018 Care Plan: Bhcg Qual Cancelled 02/23/2018 Care Plan: Referral Order SNOMED-CT : [id number] Pending 02/23/2018 Visit Plan: Excessive menstrual bleeding and irregular menstruation - pt would like to be referred to OB and would like to know about a possible hysterectomy - will refer - pt is to notify clinic if symptoms do not improve, if they worsen, or with any changes, questions, or concerns. 02/22/2018 [facility]ment[phone] [facility] (15 min) Moderate 02/22/2018 Patient Education: Patient [...] not improve. 09/01/2017 Appointment: Maylin Chowdhury WPtel: [facility] [facility] [address] (30 min) Complex 09/01/2017 Patient Education: Patient Medication Summary Completed 09/01/2017 Appointment: Bianca Jain WPtel: [phone] [facility] (15 min) Moderate 07/29/2017 Visit Plan: Chronic [...] not improve. 02/19/2017 Appointment: Maylin Chowdhury WPtel[facility] (15 min) Moderate 02/19/2017 Patient Education: Patient [...] PAP Pending 02/05/2017 Appointment: Bianca Jain WPtel: [facility] Well Woman 01/22/2017 Visit Plan: Obesity - chronic issue with this patient. The pt has been counseled about diet changes, calorie restriction, and need to exercise. Pt will RTC in one month for weight check. Anxiety - refill anxiolytic 11/20/2016 Appointment: Bianca Jain WPtel: [facility] Well Woman 11/20/2016 Patient Education: Patient Medication [...] situational exposure. No change in current medications. Ertzndzf-cwxlluntbx-qvavqs ambien for prn use Obesity - chronic [...] situational exposure. No change in current medications. Znbdtmbn-ffpygtvejo-qxpxhf ambien for prn use Obesity - chronic issue with this patient. The pt has been counseled about diet changes, calorie restriction, and need to exercise. Pt will RTC in one month for weight check. 08/25/2016 Appointment: Unique Nichole WPtel: [facility] [facility] [phone] (15 min) Moderate 08/25/2016 Patient Education: Patient [...] pt consult with Dr. Shun Harrison at [facility]. Migraine headaches - start on topamax. 04/24/2014 Appointment: Bianca Jain WPtel: [facility] [place] Pap Only 04/24/2014 Patient Education: Patient Medication Summary Completed 04/24/2014 Care Plan: PAP Pending 04/24/2014 Appointment: Unique Nichole WPtel: [facility] [phone] Other 05/31/2013 Patient Education: Patient Medication Summary [...] Summary Completed 02/14/2013 Appointment: Bianca Jain WPtel: [address] [place], [place] [id number] Pap Only 01/31/2013 Appointment: Unique Nichole WPtel: [address] [place], [place] [id number] Other 09/13/2012 Visit Plan: Numbness-bilateral lower aaf-mwstqefs-tiwd to check labs including chem panel to evaluate electrolytes as well as blood sugar, cbc, and b12 level. Recommend patient start on a multivitamin daily and drink plenty of fluids. Will call patient with labs results. Instructed patient to call with any concerns or worsening symptoms. Patient verbalized understanding of plan. 02/16/2012 Appointment: Unique Nichole WPtel: [facility] [phone] Other 02/16/2012 Patient Education: Patient Medication Summary [...] skin cancer. 01/05/2012 Appointment: Bianca Jain WPtel: [facility] [place] Pap Only 01/05/2012 Patient Education: Patient [...] not improved. 11/13/2011 Appointment: Bianca Jain WPtel: [facility] [place] Other 11/13/2011 Patient Education: Patient Medication [...] removal process. 09/29/2011 Appointment: Bianca Jain WPtel: [facility] [place] New Patient 09/29/2011 Patient Education: Patient [...] situational exposure. No change in current medications. Wmaghbaq-fvjtyalsdg-nnrezd ambien for prn use Obesity - chronic [...] situational exposure. No change in current medications. Sxrxfwuu-tfekodswwh-skddiu ambien for prn use Obesity - chronic [...] symptoms worsen, or with any other concerns. [facility] shun harrison and saritha quick [...] pt consult with Dr. Shun Harrison at [facility]. Migraine headaches - start on topamax. Check labs-cbc, cmp, b12 level. . Numbness-bilateral lower lty-yfazxodi-cgkw to check labs including chem panel to [...]
--- OUTSIDE RECORDS SUMMARY | 2019-03-03 06:57 | XMS REPORT | CCD ---
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 Name Role Phone Bianca Jain PP Unavailable CCM Unavailable Summary Purpose Interface Exchange Insurance Providers Payer name Policy type / Coverage type Covered green party ID Effective Begin Date Effective End Date [facility] [place] [id number] 2018 Unknown Family history Brother Diagnosis Age [...] Effective Dates Employment Unknown Currently employed [employer] Registration 11/20/2016 Marital status Unknown 01/05/[address]: 251849277 Never smoker 09/29/[address]: 720487 Currently drinks alcohol 3 weekly 09/29/2011 Has [...] Start Date Stop Date Status Fill Instructions Ambien 10 mg tablet RxNorm: 035306 Tablet(s) TAKE ONE TABLET BY MOUTH AT BEDTIME NEEDED 10/26/2018 11/24/2018 Active topiramate 25 mg tablet RxNorm: 571155 TAKE 1 TABLET BY MOUTH TWICE DAILY 10/26/2018 No Stop Date Active Xanax 0.5 mg tablet RxNorm: 505264 1 Tablet(s) PO Q8 as needed anxiety 10/26/2018 11/24/2018 Active Xanax 0.5 mg tablet RxNorm: 859988 Tablet(s) TAKE ONE TABLET BY MOUTH EVERY 8 HOURS NEEDED FOR ANXIETY 08/27/2018 10/24/2018 Inactive Ambien 10 mg tablet RxNorm: 618568 Tablet(s) TAKE ONE TABLET BY MOUTH AT BEDTIME NEEDED 08/27/2018 No Stop Date Active Ambien 10 mg tablet RxNorm: 349740 Tablet(s) TAKE ONE TABLET BY MOUTH AT BEDTIME NEEDED 07/29/2018 08/26/2018 Inactive Lexapro 10 mg tablet RxNorm: 809182 TAKE 1 TABLET BY MOUTH IN THE EVENING 07/27/2018 No Stop Date Active Xanax 0.5 mg tablet RxNorm: 062729 1 Tablet(s) PO Q8 as needed anxiety 06/18/2018 09/15/2018 Inactive Xanax 0.5 mg tablet RxNorm: 738805 Tablet(s) TAKE ONE TABLET BY MOUTH EVERY 8 HOURS NEEDED FOR ANXIETY 06/18/2018 08/15/2018 Inactive Ambien 10 mg tablet RxNorm: 713512 1 Tablet(s) PO HS PRN TAKE ONE TABLET BY MOUTH AT BEDTIME NEEDED 05/20/2018 10/25/2018 Inactive topiramate 25 mg tablet RxNorm: 221080 TAKE ONE TABLET BY MOUTH TWICE DAILY 04/21/2018 10/25/2018 Inactive Xanax 0.5 mg tablet RxNorm: 055218 1 Tablet(s) PO Q8 as needed anxiety 03/24/2018 06/17/2018 Inactive Ambien 10 mg tablet RxNorm: 528219 1 Tablet(s) PO HS PRN TAKE ONE TABLET BY MOUTH AT BEDTIME NEEDED 02/22/2018 05/19/2018 Inactive naproxen 500 mg tablet RxNorm: 697888 1 Tablet(s) PO BID 02/22/2018 02/26/2018 Inactive Ambien 10 mg tablet RxNorm: 676257 TAKE ONE TABLET BY MOUTH AT BEDTIME NEEDED 02/19/2018 07/28/2018 Inactive Dexilant 60 mg capsule, delayed release RxNorm: 688491 1 Capsule(s) PO daily 01/21/2018 No Stop Date Active Xanax 0.5 mg tablet RxNorm: 881869 Tablet(s) TAKE ONE TABLET BY MOUTH EVERY 8 HOURS NEEDED FOR ANXIETY 01/19/2018 03/17/2018 Inactive Lexapro 10 mg tablet RxNorm: 755057 TAKE ONE TABLET BY MOUTH IN THE EVENING 01/18/2018 07/26/2018 Inactive Xanax 0.5 mg tablet RxNorm: 234425 1 Tablet(s) PO Q8 PRN TAKE ONE TABLET BY MOUTH EVERY 8 HOURS NEEDED FOR ANXIETY 12/17/2017 01/14/2018 Inactive topiramate 25 mg tablet RxNorm: 322295 TAKE ONE TABLET BY MOUTH TWICE DAILY 10/13/2017 04/20/2018 Inactive K-Dur 10 mEq tablet,extended release RxNorm: 923753 1 Tablet(s) PO daily 09/11/2017 09/11/2017 Inactive potassium chloride ER 10 mEq tablet,extended release RxNorm: 180992 1 Tablet(s) PO daily 09/11/2017 09/10/2017 Inactive Lasix 20 mg tablet RxNorm: 302287 1 Tablet(s) PO daily for three days 09/11/2017 09/10/2017 Inactive potassium chloride ER 10 mEq tablet,extended release RxNorm: 183536 1 Tablet(s) PO daily 09/11/2017 09/13/2017 Inactive Lasix 20 mg tablet RxNorm: 597682 1 Tablet(s) PO daily for three days 09/11/2017 09/13/2017 Inactive naproxen 500 mg tablet RxNorm: 937399 1 Tablet(s) PO BID 09/01/2017 09/05/2017 Inactive Ambien 10 mg tablet RxNorm: 820270 1 Tablet(s) PO HS PRN TAKE ONE TABLET BY MOUTH AT BEDTIME NEEDED 08/14/2017 02/22/2018 Inactive Xanax 0.5 mg tablet RxNorm: 657820 1 Tablet(s) PO Q8 PRN TAKE ONE TABLET BY MOUTH EVERY 8 HOURS NEEDED FOR ANXIETY 08/14/2017 01/18/2018 Inactive Lexapro 10 mg tablet RxNorm: 780132 TAKE ONE TABLET BY MOUTH IN THE EVENING 07/13/2017 01/08/2018 Inactive Xanax 0.5 mg tablet RxNorm: 718608 1 Tablet(s) PO Q8 PRN TAKE ONE TABLET BY MOUTH EVERY 8 HOURS NEEDED FOR ANXIETY 06/18/2017 07/16/2017 Inactive Xanax 0.25 mg tablet RxNorm: 021883 Tablet(s) TAKE ONE TABLET BY MOUTH EVERY 8 HOURS NEEDED FOR ANXIETY 06/17/2017 06/17/2017 Inactive Ambien 10 mg tablet RxNorm: 821003 1 Tablet(s) PO QHS as needed insomnia 06/17/2017 08/17/2017 Inactive topiramate 25 mg tablet RxNorm: 334169 TAKE ONE TABLET BY MOUTH TWICE DAILY 06/16/2017 10/12/2017 Inactive Lexapro 10 mg tablet RxNorm: 816344 TAKE ONE TABLET BY MOUTH IN THE EVENING 04/17/2017 07/12/2017 Inactive Ambien 10 mg tablet RxNorm: 012919 1 Tablet(s) PO QHS as needed insomnia 04/17/2017 01/18/2018 Inactive Xanax 0.25 mg tablet RxNorm: 343541 Tablet(s) TAKE ONE TABLET BY MOUTH EVERY 8 HOURS NEEDED FOR ANXIETY 04/17/2017 06/13/2017 Inactive topiramate 25 mg tablet RxNorm: 381755 TAKE ONE TABLET BY MOUTH TWICE DAILY 03/20/2017 06/15/2017 Inactive Flagyl 500 mg tablet RxNorm: 180728 1 Tablet(s) PO TID do not drink alcohol when taking this medication 02/05/2017 02/09/2017 Inactive Ambien 10 mg tablet RxNorm: 704169 1 Tablet(s) PO QHS as needed insomnia 01/23/2017 04/21/2017 Inactive Xanax 0.25 mg tablet RxNorm: 698867 TAKE ONE TABLET BY MOUTH EVERY 8 HOURS NEEDED FOR ANXIETY 01/23/2017 04/21/2017 Inactive Xanax 0.25 mg tablet RxNorm: 736626 1 Tablet(s) PO TAKE ONE TABLET BY MOUTH EVERY 8 HOURS NEEDED FOR ANXIETY 11/28/2016 01/18/2018 Inactive Lexapro 10 mg tablet RxNorm: 344347 1 Tablet(s) PO QPM 11/20/2016 04/16/2017 Inactive topiramate 25 mg tablet RxNorm: 231204 1 Tablet(s) PO BID start one pill at hs, if migraines not improving, then increase to bid 11/20/2016 01/18/2018 Inactive Ambien 10 mg tablet RxNorm: 520464 1 Tablet(s) PO QHS as needed TAKE ONE TABLET BY MOUTH AT BEDTIME NEEDED FOR INSOMNIA 10/31/2016 01/18/2018 Inactive acyclovir 400 mg tablet RxNorm: 167848 1 Tablet(s) PO TID 10/01/2016 10/05/2016 Inactive acyclovir 400 mg tablet RxNorm: 381696 1 Tablet(s) PO TID 10/01/2016 09/30/2016 Inactive phentermine 37.5 mg tablet RxNorm: 412351 1 Tablet(s) PO daily 09/26/2016 02/04/2017 Inactive Xanax 0.25 mg tablet RxNorm: 254905 Tablet(s) TAKE ONE TABLET BY MOUTH EVERY 8 HOURS NEEDED FOR ANXIETY 08/25/2016 01/18/2018 Inactive Ambien 10 mg tablet RxNorm: 157712 1 Tablet(s) PO daily as needed TAKE ONE TABLET BY MOUTH AT BEDTIME NEEDED FOR INSOMNIA 08/25/2016 11/19/2016 Inactive phentermine 37.5 mg tablet RxNorm: 220760 1 Tablet(s) PO daily 08/25/2016 09/25/2016 Inactive topiramate 25 mg tablet RxNorm: 298948 TAKE ONE TABLET BY MOUTH TWICE DAILY 07/09/2016 08/24/2016 Inactive Xanax 0.25 mg tablet RxNorm: 126370 Tablet(s) TAKE ONE TABLET BY MOUTH EVERY 8 HOURS NEEDED FOR ANXIETY 04/28/2016 06/25/2016 Inactive Ambien 10 mg tablet RxNorm: 087513 1 Tablet(s) PO daily as needed TAKE ONE TABLET BY MOUTH AT BEDTIME NEEDED FOR INSOMNIA 04/28/2016 06/24/2016 Inactive topiramate 25 mg tablet RxNorm: 884673 1 Tablet(s) PO BID 02/20/2016 06/18/2016 Inactive Ambien 10 mg tablet RxNorm: 295014 1 Tablet(s) PO daily as needed TAKE ONE TABLET BY MOUTH AT BEDTIME NEEDED FOR INSOMNIA 01/03/2016 03/31/2016 Inactive (Response to an electronic controlled substance refill request - RxReferenceNumber: [id number]) Xanax 0.25 mg tablet RxNorm: 350684 Tablet(s) TAKE ONE TABLET BY MOUTH EVERY 8 HOURS NEEDED FOR ANXIETY 01/03/2016 01/18/2018 Inactive (Response to an electronic controlled substance refill request - RxReferenceNumber: [id number]) meclizine 25 mg tablet RxNorm: 167400 1 Tablet(s) PO QID 12/13/2015 01/11/2016 Inactive Xanax 0.25 mg tablet RxNorm: 343362 Tablet(s) TAKE ONE TABLET BY MOUTH EVERY 8 HOURS NEEDED FOR ANXIETY 11/23/2015 01/18/2018 Inactive (Response to an electronic controlled substance refill request - RxReferenceNumber: [id number]) topiramate 25 mg tablet RxNorm: 460599 1 Tablet(s) PO BID 11/02/2015 12/12/2015 Inactive pt needs to make an appt Ambien 10 mg tablet RxNorm: 261768 1 Tablet(s) PO daily as needed TAKE ONE TABLET BY MOUTH AT BEDTIME NEEDED FOR INSOMNIA 10/30/2015 11/19/2016 Inactive (Response to an electronic controlled substance refill request - RxReferenceNumber: [id number]) Xanax 0.25 mg tablet RxNorm: 420419 Tablet(s) TAKE ONE TABLET BY MOUTH EVERY 8 HOURS NEEDED FOR ANXIETY 09/20/2015 10/18/2015 Inactive (Response to an electronic controlled substance refill request - RxReferenceNumber: [id number]) Xanax 0.25 mg tablet RxNorm: 687421 Tablet(s) TAKE ONE TABLET BY MOUTH EVERY 8 HOURS NEEDED FOR ANXIETY 06/28/2015 08/25/2015 Inactive (Response to an electronic controlled substance refill request - RxReferenceNumber: [id number]) topiramate 25 mg tablet RxNorm: 834948 1 Tablet(s) PO BID 06/27/2015 10/24/2015 Inactive Ambien 10 mg tablet RxNorm: 688621 1 Tablet(s) PO daily as needed TAKE ONE TABLET BY MOUTH AT BEDTIME NEEDED FOR INSOMNIA 06/26/2015 09/23/2015 Inactive (Response to an electronic controlled substance refill request - RxReferenceNumber: [id number]) Xanax 0.25 mg tablet RxNorm: 330239 Tablet(s) TAKE ONE TABLET BY MOUTH EVERY 8 HOURS NEEDED FOR ANXIETY 04/04/2015 06/02/2015 Inactive (Response to an electronic controlled substance refill request - RxReferenceNumber: [id number]) Ambien 10 mg tablet RxNorm: 304413 1 Tablet(s) PO daily as needed TAKE ONE TABLET BY MOUTH AT BEDTIME NEEDED FOR INSOMNIA 02/16/2015 05/16/2015 Inactive (Response to an electronic controlled substance refill request - RxReferenceNumber: [id number]) Ambien 10 mg tablet RxNorm: 601107 TAKE ONE TABLET BY MOUTH AT BEDTIME NEEDED FOR INSOMNIA 01/11/2015 02/09/2015 Inactive (Response to an electronic controlled substance refill request - RxReferenceNumber: [id number]) Ambien 10 mg tablet RxNorm: 281175 1 Tablet(s) PO QHS as needed TAKE ONE TABLET BY MOUTH AT BEDTIME NEEDED 01/11/2015 01/11/2015 Inactive (Appended: Controlled substance eRx refill - RxReferenceNumber: [id number]) topiramate 25 mg tablet RxNorm: 632391 1 Tablet(s) PO BID 01/11/2015 05/10/2015 Inactive Xanax 0.25 mg tablet RxNorm: 517738 TAKE ONE TABLET BY MOUTH EVERY 8 HOURS NEEDED FOR ANXIETY 01/11/2015 02/09/2015 Inactive (Response to an electronic controlled substance refill request - RxReferenceNumber: [id number]) Xanax 0.25 mg tablet RxNorm: 441370 Tablet(s) TAKE ONE TABLET BY MOUTH EVERY 8 HOURS NEEDED FOR ANXIETY 01/11/2015 01/11/2015 Inactive (Response to an electronic controlled substance refill request - RxReferenceNumber: [id number]) Xanax 0.25 mg tablet RxNorm: 230433 Tablet(s) TAKE ONE TABLET BY MOUTH EVERY 8 HOURS NEEDED FOR ANXIETY 11/20/2014 12/17/2014 Inactive (Response to an electronic controlled substance refill request - RxReferenceNumber: [id number]) Xanax 0.25 mg tablet RxNorm: 332255 TAKE ONE TABLET BY MOUTH EVERY 8 HOURS NEEDED FOR ANXIETY 09/14/2014 10/13/2014 Inactive (Response to an electronic controlled substance refill request - RxReferenceNumber: [id number]) Xanax 0.25 mg tablet RxNorm: 505948 Tablet(s) PO TAKE ONE TABLET BY MOUTH EVERY 8 HOURS NEEDED FOR ANXIETY 09/12/2014 09/15/2014 Inactive (Appended: Controlled substance eRx refill - RxReferenceNumber: [id number]) Xanax 0.25 mg tablet RxNorm: 456925 TAKE ONE TABLET BY MOUTH EVERY 8 HOURS NEEDED FOR ANXIETY 07/31/2014 07/31/2014 Inactive (Response to an electronic controlled substance refill request - RxReferenceNumber: [id number]) Ambien 10 mg tablet RxNorm: 765075 TAKE ONE TABLET BY MOUTH AT BEDTIME NEEDED FOR INSOMNIA 07/31/2014 11/19/2016 Inactive (Response to an electronic controlled substance refill request - RxReferenceNumber: [id number]) Xanax 0.25 mg tablet RxNorm: 685311 TAKE ONE TABLET BY MOUTH EVERY 8 HOURS NEEDED FOR ANXIETY 07/31/2014 08/29/2014 Inactive (Response to an electronic controlled substance refill request - RxReferenceNumber: [id number]) metronidazole 500 mg tablet RxNorm: 980485 1 Tablet(s) PO TID 05/25/2014 05/31/2014 Inactive Diflucan 150 mg tablet RxNorm: 526982 1 Tablet(s) PO daily 05/25/2014 05/29/2014 Inactive topiramate 25 mg tablet RxNorm: 652546 1 Tablet(s) PO BID 04/24/2014 11/19/2014 Inactive Xanax 0.25 mg tablet RxNorm: 751195 Tablet(s) PO TAKE ONE TABLET BY MOUTH EVERY 8 HOURS NEEDED FOR ANXIETY 01/17/2014 07/31/2014 Inactive (Appended: Controlled substance eRx refill - RxReferenceNumber: [id number]) Xanax 0.25 mg tablet RxNorm: 698536 Tablet(s) PO TAKE ONE TABLET BY MOUTH EVERY 8 HOURS NEEDED FOR ANXIETY 01/16/2014 01/17/2014 Inactive (Appended: Controlled substance eRx refill - RxReferenceNumber: [id number]) Xanax 0.25 mg tablet RxNorm: 167855 Tablet(s) PO TAKE ONE TABLET BY MOUTH EVERY 8 HOURS NEEDED FOR ANXIETY 01/13/2014 09/11/2014 Inactive (Appended: Controlled substance eRx refill - RxReferenceNumber: [id number]) Xanax 0.25 mg tablet RxNorm: 591993 Tablet(s) PO TAKE ONE TABLET BY MOUTH EVERY 8 HOURS NEEDED FOR ANXIETY 11/21/2013 01/16/2014 Inactive (Appended: Controlled substance eRx refill - RxReferenceNumber: [id number]) Xanax 0.25 mg tablet RxNorm: 306343 Tablet(s) PO TAKE ONE TABLET BY MOUTH EVERY 8 HOURS NEEDED FOR ANXIETY 11/18/2013 01/15/2014 Inactive (Appended: Controlled substance eRx refill - RxReferenceNumber: [id number]) Ambien 10 mg tablet RxNorm: 447927 Tablet(s) PO TAKE ONE TABLET BY MOUTH EVERY DAY AT BEDTIME NEEDED 08/31/2013 07/31/2014 Inactive (Appended: Controlled substance eRx refill - RxReferenceNumber: [id number]) Ambien 10 mg tablet RxNorm: 749174 Tablet(s) PO TAKE ONE TABLET BY MOUTH EVERY DAY AT BEDTIME NEEDED 08/31/2013 08/30/2013 Inactive (Appended: Controlled substance eRx refill - RxReferenceNumber: [id number]) Xanax 0.25 mg tablet RxNorm: 105893 Tablet(s) PO TAKE ONE TABLET BY MOUTH EVERY 8 HOURS NEEDED FOR ANXIETY 07/21/2013 11/21/2013 Inactive (Appended: Controlled substance eRx refill - RxReferenceNumber: [id number]) Xanax 0.25 mg tablet RxNorm: 740941 Tablet(s) PO TAKE ONE TABLET BY MOUTH EVERY 8 HOURS NEEDED FOR ANXIETY 07/19/2013 07/21/2013 Inactive (Appended: Controlled substance eRx refill - RxReferenceNumber: [id number]) omeprazole 20 mg capsule,delayed release RxNorm: 297011 Capsule(s) PO TAKE ONE CAPSULE BY MOUTH EVERY DAY 05/23/2013 04/23/2014 Inactive Flagyl 500 mg tablet RxNorm: 875179 1 Tablet(s) PO BID 02/21/2013 02/20/2013 Inactive Flagyl 500 mg tablet RxNorm: 306303 1 Tablet(s) PO BID 02/21/2013 02/27/2013 Inactive fluconazole 150 mg tablet RxNorm: 935692 1 Tablet(s) PO PRN one pill as needed for yeast infection symptoms 02/14/2013 04/23/2014 Inactive Xanax 0.25 mg tablet RxNorm: 270084 Tablet(s) PO TAKE ONE TABLET BY MOUTH EVERY 8 HOURS NEEDED FOR ANXIETY 02/03/2013 11/20/2013 Inactive (Appended: Controlled substance eRx refill - RxReferenceNumber: [id number]) Ambien 10 mg tablet RxNorm: 528588 Tablet(s) PO TAKE ONE TABLET BY MOUTH AT BEDTIME NEEDED 02/03/2013 08/31/2013 Inactive (Appended: Controlled substance eRx refill - RxReferenceNumber: [id number]) Ambien 10 mg tablet RxNorm: 388239 Tablet(s) PO TAKE ONE TABLET BY MOUTH AT BEDTIME NEEDED 02/03/2013 01/10/2015 Inactive (Appended: Controlled substance eRx refill - RxReferenceNumber: [id number]) Xanax 0.25 mg tablet RxNorm: 991304 Tablet(s) PO 02/03/2013 07/20/2013 Inactive TAKE ONE TABLET BY MOUTH EVERY 8 HOURS NEEDED FOR ANXIETY (Appended: Controlled substance eRx refill - RxReferenceNumber: [id number]) Xanax 0.25 mg tablet RxNorm: 189404 Tablet(s) PO TAKE ONE TABLET BY MOUTH EVERY 8 HOURS NEEDED FOR ANXIETY 12/08/2012 02/03/2013 Inactive (Appended: Controlled substance eRx refill - RxReferenceNumber: [id number]) Ambien 10 mg tablet RxNorm: 981672 Tablet(s) PO TAKE ONE TABLET BY MOUTH AT BEDTIME NEEDED 12/08/2012 02/02/2013 Inactive (Appended: Controlled substance eRx refill - RxReferenceNumber: [id number]) Xanax 0.25 mg tablet RxNorm: 665664 Tablet(s) PO TAKE ONE TABLET BY MOUTH EVERY 8 HOURS NEEDED FOR ANXIETY 12/08/2012 12/07/2012 Inactive (Appended: Controlled substance eRx refill - RxReferenceNumber: [id number]) Ambien 10 mg tablet RxNorm: 882394 Tablet(s) PO TAKE ONE TABLET BY MOUTH AT BEDTIME NEEDED 12/08/2012 02/03/2013 Inactive (Appended: Controlled substance eRx refill - RxReferenceNumber: [id number]) Ambien 10 mg tablet RxNorm: 031111 Tablet(s) PO 08/27/2012 12/08/2012 Inactive TAKE ONE TABLET BY MOUTH AT BEDTIME NEEDED (Appended: Controlled substance eRx refill - RxReferenceNumber: [id number]) Xanax 0.25 mg tablet RxNorm: 119987 Tablet(s) PO 08/24/2012 02/02/2013 Inactive TAKE ONE TABLET BY MOUTH EVERY 8 HOURS NEEDED FOR ANXIETY (Appended: Controlled substance eRx refill - RxReferenceNumber: [id number]) Ambien 10 mg tablet RxNorm: 409450 Tablet(s) PO 08/24/2012 08/27/2012 Inactive TAKE ONE TABLET BY MOUTH AT BEDTIME NEEDED (Appended: Controlled substance eRx refill - RxReferenceNumber: [id number]) Xanax 0.25 mg tablet RxNorm: 548313 Tablet(s) PO 08/24/2012 12/08/2012 Inactive TAKE ONE TABLET BY MOUTH EVERY 8 HOURS NEEDED FOR ANXIETY (Appended: Controlled substance eRx refill - RxReferenceNumber: [id number]) Xanax 0.25 mg tablet RxNorm: 788028 1 Tablet(s) PO Q8 PRN 07/09/2012 08/24/2012 Inactive omeprazole 20 mg capsule,delayed release RxNorm: 314322 1 Capsule(s) PO daily 05/19/2012 12/14/2012 Inactive Ambien 10 mg tablet RxNorm: 466614 1 Tablet(s) PO QHS 05/19/2012 08/24/2012 Inactive Xanax 0.25 mg tablet RxNorm: 718463 1 Tablet(s) PO Q8 PRN 03/16/2012 06/13/2012 Inactive Diflucan 150 mg Tab RxNorm: 676196 1 Tablet(s) PO daily 01/05/2012 01/14/2012 Inactive Ambien 10 mg tablet RxNorm: 192753 1 Tablet(s) PO QHS 01/02/2012 04/30/2012 Inactive Ambien 10 mg Tab RxNorm: 430899 1 Tablet(s) PO QHS 12/24/2011 01/01/2012 Inactive Rocephin 500 mg Solution for Injection RxNorm: 514263 1 Milliliter(s) Inj 11/13/2011 11/13/2011 Inactive omeprazole 20 mg capsule,delayed release RxNorm: 613493 1 Capsule(s) PO daily 10/07/2011 05/18/2012 Inactive omeprazole 20 mg Cap, Delayed Release RxNorm: 682122 1 Capsule(s) PO daily 10/07/2011 04/03/2012 Inactive Ambien 5 mg Tab RxNorm: 641304 1 Tablet(s) PO QHS 1 tab q hs prn insomnia 10/07/2011 12/23/2011 Inactive Xanax 0.25 mg Tab RxNorm: 650326 1 Tablet(s) PO Q8 PRN 09/29/2011 03/15/2012 Inactive Medication Administered Medication Codes Instructions Start Date Status Rocephin 500 mg Solution for Injection RxNorm: 868877 1Milliliter 11/13/2011 No longer Active Immunizations Vaccine [...] Item Item Code Result Date GC/CHL PRB 1775058 CHLM PROBE NEG 04/26/2014 GC/CHL PRB 0854307 GC PROBE NEG 04/26/2014 TSH 3412816 TSH 2.977 uIU/ML 02/16/2013 GC/CHL PRB 8372011 SOURCE KIMBERLYN UNKNOWN 02/15/2013 GC/CHL PRB 5901065 CHLM PROBE NEG 02/15/2013 GC/CHL PRB 2815990 GC PROBE NEG 02/15/2013 CHEM 14 9059472 AST 12 U/L 02/15/2013 CHEM 14 0017152 ALT 16 IU/L 02/15/2013 CHEM 14 4913179 BUN 13 MG/DL 02/15/2013 CHEM 14 1397332 ALBUMIN 4.6 GM/DL 02/15/2013 CHEM 14 4137602 CHLORIDE 104 MMOL/L 02/15/2013 CHEM 14 8619706 BILI TOT 0.5 MG/DL 02/15/2013 CHEM 14 4988910 ALK PHOS 55 U/L 02/15/2013 CHEM 14 9347121 SODIUM 137 MMOL/L 02/15/2013 CHEM 14 5592548 CREATININE 0.79 MG/DL 02/15/2013 CHEM 14 2871613 CALCIUM 9.3 MG/DL 02/15/2013 CHEM 14 9463118 POTASSIUM 4.0 MMOL/L 02/15/2013 CHEM 14 6626885 PROT TOT 6.9 GM/DL 02/15/2013 CHEM 14 5953312 GLUCOSE 99 MG/DL 02/15/2013 CHEM 14 3222519 BICARB 29 MMOL/L 02/15/2013 CHEM 14 6762725 ANION GAP 4 MEQ/L 02/15/2013 GFR CALC 0100526 GFR AA >60 ML/MIN 02/15/2013 GFR CALC 2477120 GFR NON-AA >60 ML/MIN 02/15/2013 LIPID GRP HDL TEST 38 MG/DL 02/15/2013 LIPID GRP TRIG 126 MG/DL 02/15/2013 LIPID GRP TEST LDL 112 MG/DL 02/15/2013 LIPID GRP CHOL 175 MG/DL 02/15/2013 LIPID GRP RCHOL/HDL 4.61 RATIO 02/15/2013 CBC 3338336 WBC 5.8 10e9/L 02/15/2013 CBC 2226014 RBC 4.51 10e12/L 02/15/2013 CBC 1265341 HGB 13.8 g/dL 02/15/2013 CBC 0996819 HCT DET 39.0 % 02/15/2013 CBC 7365565 MCV 86.5 fL 02/15/2013 CBC 8900534 MCH 30.6 pg 02/15/2013 CBC 4859632 MCHC 35.4 g/dL 02/15/2013 CBC 5778444 PLT 284 10e9/L 02/15/2013 CBC 4336175 MPV 10.3 fL 02/15/2013 CBC 8829069 BLANUQITA % 62.9 % 02/15/2013 CBC 0328120 LY % 26.8 % 02/15/2013 CBC 9261143 MON % 9.1 % 02/15/2013 CBC 0245968 EOS % 1.2 % 02/15/2013 CBC 6514726 BASO % 0.0 % 02/15/2013 CBC 1892108 RDW 14.4 % 02/15/2013 CBC 3740542 ABS BLANQUITA 3.65 10e9/L 02/15/2013 CBC 5564543 ABS LYMPH 1.55 10e9/L 02/15/2013 CBC 4481255 ABS MONO 0.53 10e9/L 02/15/2013 CBC 0446399 ABS EOS 0.07 10e9/L 02/15/2013 CBC 8579216 ABS BASO 0.00 10e9/L 02/15/2013 CBC 7343052 RDW-SD 44.0 fL 02/15/2013 Review of Systems [...] accomodation 06/18/2017 None Full Exam - General 1995 [...] 02/16/2012 None Full Exam - General 1995 Respiratory respiratory effort/rhythm Overall: normal rate 02/16/2012 [...] clear 09/29/2011 None Full Exam - General 1995 Ears/Nose/Throat oral cavity/pharynx/larynx Overall: no masses 09/29/2011 None Full Exam - General 1995 [...] PROBE (CHYLMD TRACH DNA AMP PROBE) CPT-4: 75691 04/24/2014 GC PROBE (N.GONORRHOEAE DNA AMP PROB) CPT-4: 04161 04/24/2014 ROUTINE VENIPUNCTURE CPT- 4: 25375 02/15/2013 PREV VISIT EST AGE 40-64 CPT-4: 41561 01/05/2012 ROCEPHIN, PER 250 MG CPT- 4: J0696 11/13/2011 THER/PROPH/DIAG INJ SC/IM CPT-4: 75193 11/13/2011 REMOVE IMPACTED EAR WAX UNI CPT-4: 08587 11/13/2011 Vital Signs Date Vital 10/26/2018 Blood Pressure 1: 140/76 Code: 8480-6 BMI: 31.5 Code: 18974-0 Heart Rate 1: 79 bpm Height: 5'8" SpO2: 98% Weight: 207 lbs 02/22/2018 Blood Pressure 1: 132/70 Code: 8480-6 BMI: 33.1 Code: 06226-8 Heart Rate 1: 75 bpm Height: 5'8" SpO2: 97% Weight: 218 lbs 01/21/2018 Blood Pressure 1: 122/78 Code: 8480-6 Heart Rate 1: 73 bpm Height: 5'8" SpO2: 98% Weight: 09/01/2017 Blood Pressure 1: 134/82 Code: 8480-6 Heart Rate 1: 80 bpm Height: SpO2: 98% Weight: 06/18/2017 Blood Pressure 1: 122/76 Code: 8480-6 BMI: 30.7 Code: 40315-2 Heart Rate 1: 78 bpm Height: 5'8" SpO2: 98% Weight: 202 lbs 02/19/2017 Blood Pressure 1: 132/70 Code: 8480-6 BMI: 30.1 Code: 11399-7 Heart Rate 1: 72 bpm Height: 5'8" SpO2: 98% Weight: 198 lbs 02/05/2017 Blood Pressure 1: 124/84 Code: 8480-6 BMI: 29.3 Code: 40434-4 Heart Rate 1: 98 bpm Height: 5'8" SpO2: 98% Weight: 193 lbs 11/20/2016 Blood Pressure 1: 130/86 Code: 8480-6 BMI: 30.0 Code: 83304-7 Heart Rate 1: 90 bpm Height: 5'8" SpO2: 99% Weight: 197 lbs 09/26/2016 Blood Pressure 1: 124/84 Code: 8480-6 Heart Rate 1: 74 bpm SpO2: 97% Weight: 203 lbs 08/25/2016 Blood Pressure 1: 124/86 Code: 8480-6 BMI: 31.0 Code: 76785-5 Heart Rate 1: 90 bpm Height: 5'8" SpO2: 95% Weight: 204 lbs 12/13/2015 Blood Pressure 1: 112/80 Code: 8480-6 BMI: 31.5 Code: 35848-9 Heart Rate 1: 87 bpm Height: 5'8" SpO2: 97% Weight: 207 lbs 11/15/2015 Blood Pressure 1: 146/78 Code: 8480-6 BMI: 32.1 Code: 30693-0 Heart Rate 1: 96 bpm Height: 5'8" SpO2: 97% Weight: 211 lbs 06/28/2015 Blood Pressure 1: 132/64 Code: 8480-6 BMI: 29.5 Code: 34788-9 Heart Rate 1: 91 bpm Height: 5'8" SpO2: 98% Weight: 194 lbs 05/23/2014 Blood Pressure 1: 124/80 Code: 8480-6 BMI: 30.3 Code: 28142-3 Heart Rate 1: 68 bpm Height: 5'8" Weight: 199 lbs 04/24/2014 Blood Pressure 1: 132/72 Code: 8480-6 BMI: 30.7 Code: 32793-9 Heart Rate 1: 82 bpm Height: 5'8" SpO2: 98% Weight: 202 lbs 02/14/2013 Blood Pressure 1: 122/80 Code: 8480-6 BMI: 28.6 Code: 42896-0 Heart Rate 1: 84 bpm Height: 5'8" Respiratory Rate: 16 bpm Weight: 188 lbs 02/16/2012 Blood Pressure 1: 104/66 Code: 8480-6 BMI: 28.5 Code: 23547-5 Heart Rate 1: 76 bpm Height: 5'7" Weight: 182 lbs 01/05/2012 Blood Pressure 1: 100/64 Code: 8480-6 BMI: 28.7 Code: 23967-9 Heart Rate 1: 78 bpm Height: 5'7" Respiratory Rate: 16 bpm Weight: 183 lbs 11/13/2011 Blood Pressure 1: 116/78 Code: 8480-6 Heart Rate 1: 84 bpm Respiratory Rate: 16 bpm SpO2: 98% Temperature: 36.7 (C) / 98.1 (F) Weight: 181 lbs 09/29/2011 Blood Pressure 1: 118/82 Code: 8480-6 BMI: 36.8 Code: 79911-3 Heart Rate 1: 72 bpm Height: 4'10" [...] the day. well woman exam (40-65 years) Breast/[employer] Complaints breast pain 01/05/2012 pt states that [...] data Encounters Encounter Performer Location Codes Date (66178) PREV VISIT EST AGE 40-64 Diagnosis: Encounter for general adult medical examination without abnormal findings[ICD10: Z00.00] [facility] CPT-4: 79504 10/26/2018 57188 EST. PATIENT, LEVEL III Diagnosis: Excessive and frequent menstruation with regular cycle[ICD10: N92.0] Maylin Jain MD, [facility] CPT-4: 89421 02/22/2018 ([id number]) 99960 EST. PATIENT, LEVEL III Diagnosis: Gastro-esophageal reflux disease with esophagitis[ICD10: K21.0] Unique Jain MD, [facility] CPT-4: 13910 01/21/2018 63862 EST. PATIENT, LEVEL III Diagnosis: Pain in left leg[ICD10: M79.605] Maylin Jain MD, [facility] CPT-4: 46227 09/01/2017 ([id number]) 46726 EST. PATIENT, LEVEL III Diagnosis: Generalized anxiety disorder[ICD10: F41.1] Unique Jain MD, [facility] CPT-4: 67477 06/18/2017 94139 EST. PATIENT, LEVEL IV Diagnosis: Pain in left shoulder[ICD10: M25.512] Diagnosis: Pain in right shoulder[ICD10: M25.511] Maylin Jain MD, [facility] CPT- 4: 71722 02/19/2017 ([id number]) PREV VISIT EST AGE 40-64 Diagnosis: Encounter for gynecological examination (general) (routine) without abnormal findings[ICD10: Z01.419] Bianca Jain MD, [facility] CPT-4: 25554 02/05/2017 ([id number]) 62290 EST. PATIENT, LEVEL III Diagnosis: Generalized anxiety disorder[ICD10: F41.1] Diagnosis: Other obesity due to excess calories[ICD10: E66.09] Bianca Jain MD, [facility] CPT-4: 94837 11/20/2016 ([id number]) Miscellaneous no charge Diagnosis: Other obesity due to excess calories[ICD10: E66.09] Maylin Jain MD, [facility] CPT-4: 47251 09/26/2016 ([id number]) 01338 EST. PATIENT, LEVEL IV Diagnosis: Generalized anxiety disorder[ICD10: F41.1] Diagnosis: Adjustment insomnia[ICD10: F51.02] Diagnosis: Other obesity due to excess calories[ICD10: E66.09] Unique Jain MD, [facility] CPT-4: 66681 08/25/2016 39927 EST. PATIENT, LEVEL IV Diagnosis: Dizziness and giddiness[ICD10: R42] Maylin Jain MD [facility] CPT- 4: 04785 12/13/2015 65683 EST. PATIENT, LEVEL IV Diagnosis: Dizziness and giddiness[ICD10: R42] Diagnosis: Other chest pain[ICD10: R07.89] Maylin Jain MD, [facility] CPT-4: 04091 11/15/2015 ([id number]) 37182 EST. PATIENT, LEVEL III Diagnosis: GENERALIZED ANXIETY DISEASE[ICD9: 300.02] Diagnosis: Migraines[ICD9: 346.90] Unique Jain MD, [facility] CPT-4: 38145 06/28/2015 ([id number]) 32455 EST. PATIENT, LEVEL III Diagnosis: Right ankle pain[ICD9: 719.47] Diagnosis: Right ankle sprain[ICD9: 845.00] Unique Jain MD, [facility] CPT- 4: 02688 05/23/2014 ([id number]) PREV VISIT EST AGE 40-64 Diagnosis: ROUTINE GYNE EXAM[ICD9: V72.31] Diagnosis: Laboratory exam ordered as part of routine general medical examination[ICD9: V72.62] Bianca Jain MD, [facility] CPT-4: 14248 04/24/2014 ([id number]) PREV VISIT EST AGE 40-64 Diagnosis: Well woman exam with routine gynecological exam[ICD9: V72.31] Bianca Jain MD, [facility] CPT-4: 33426 02/14/2013 [id number] EST. PATIENT, LEVEL IV Diagnosis: Numbness in both legs[ICD9: 782.0] Diagnosis: Myalgia[ICD9: 729.1] Unique Jain MD, [facility] CPT-4: 75197 02/16/2012 ([id number]) 33124 EST. PATIENT, LEVEL IV Diagnosis: Acute maxillary sinusitis[ICD9: 461.0] Diagnosis: Cough[ICD9: 786.2] Diagnosis: Cerumen impaction[ICD9: 380.4] Bianca Jain MD, [facility] CPT-4: 03631 11/13/2011 ([id number]) OFFICE VISIT, NEW - LEVEL 3 Diagnosis: GENERALIZED ANXIETY DISEASE[ICD9: 300.02] Diagnosis: DEPRESSIVE DISORDER NEC[ICD9: 311] Diagnosis: Impacted cerumen[ICD9: 380.4] Diagnosis: HEARING LOSS[ICD9: 389.9] [facility] CPT-4: 97151 09/29/2011 Plan of Care Planned Activity Notes [...] chem panel, CBC, and renal functioning. 10/26/2018 Patient Education: Patient Medication Summary Completed 10/26/2018 Care Plan: Cbc With Differential Cancelled 02/23/2018 Care Plan: Bhcg Qual Cancelled 02/23/2018 Care Plan: Referral Order SNOMED-CT : [id number] Pending 02/23/2018 Visit Plan: Excessive menstrual bleeding and irregular menstruation - pt would like to be referred to OB and would like to know about a possible hysterectomy - will refer - pt is to notify clinic if symptoms do not improve, if they worsen, or with any changes, questions, or concerns. 02/22/2018 Appointment: Maylin Chowdhury WPtel: [address] [place], [place] [phone] (15 min) Moderate 02/22/2018 Patient Education: Patient [...] improve. 09/01/2017 Appointment: Maylin Chowdhury WPtel: [facility] (30 min) Complex 09/01/2017 Patient Education: Patient Medication Summary Completed 09/01/2017 Appointment: Bianca Jain WPtel: [facility]0 [facility]66[facility] (15 min) Moderate 07/29/2017 Visit Plan: Chronic [...] improve. 02/19/2017 Appointment: Maylin Chowdhury WPtel: [facility]7 [facility]66[facility] (15 min) Moderate 02/19/2017 Patient Education: Patient [...] Pending 02/05/2017 Appointment: Bianca Jain WPtel: [facility] [facility] 01/22/2017 Visit Plan: Obesity - chronic issue with this patient. The pt has been counseled about diet changes, calorie restriction, and need to exercise. Pt will RTC in one month for weight check. Anxiety - refill anxiolytic 11/20/2016 Appointment: [facility] [phone] [facility] [facility] 11/20/2016 Patient Education: Patient Medication [...] situational exposure. No change in current medications. Arflviks-gkelhgdvwo-pfhqlw ambien for prn use Obesity - chronic [...] situational exposure. No change in current medications. Yobwlqld-grjdjgrtem-vmqqou ambien for prn use Obesity - chronic issue with this patient. The pt has been counseled about diet changes, calorie restriction, and need to exercise. Pt will RTC in one month for weight check. 08/25/2016 Appointment: [facility] [phone] (15 min) Moderate 08/25/2016 Patient Education: [...] pt consult with Dr. Shun Harrison at [facility]. Migraine headaches - start on topamax. 04/24/2014 Appointment: Bianca Jain WPtel: [facility] [place] Pap Only 04/24/2014 Patient Education: Patient Medication Summary Completed 04/24/2014 Care Plan: PAP Pending 04/24/2014 Appointment: [facility]ole [facility] [phone] [phone] [place] Other 05/31/2013 Patient Education: Patient Medication [...] Summary Completed 02/14/2013 Appointment: Bianca Jain WPtel: [address] [place], [place] [phone] [place] Pap Only 01/31/2013 Appointment: Unique Nichole WPtel: [address] [place], [place] [phone] Other 09/13/2012 Visit Plan: Numbness-bilateral lower lao-npimxhxh-pxwp to check labs including chem panel to evaluate electrolytes as well as blood sugar, cbc, and b12 level. Recommend patient start on a multivitamin daily and drink plenty of fluids. Will call patient with labs results. Instructed patient to call with any concerns or worsening symptoms. Patient verbalized understanding of plan. 02/16/2012 Appointment: Unique Nichole WPtel: [address] [place], [place] [phone] [place] Other 02/16/2012 Patient Education: Patient Medication [...] 01/05/2012 Appointment: Bianca Jain WPtel: [facility]6 [facility] [place] Pap Only 01/05/2012 Patient Education: Patient [...] not improved. 11/13/2011 Appointment: Bianca Jain WPtel: [address] [place], [place] [phone] [place] Other 11/13/2011 Patient Education: Patient Medication [...] process. 09/29/2011 Appointment: Bianca Jain WPtel: [facility] [place] New Patient 09/29/2011 Patient Education: Patient Medication Summary Completed 09/29/2011 Referral: Aaron Villavicenciotel: Referral Appointment Requested Referral: Aaron Villavicenciotel: Referral Initiated Instructions Comment . Left lower [...] situational exposure. No change in current medications. Xvflliif-cdnqswxfbl-mrtenx ambien for prn use Obesity - chronic [...] situational exposure. No change in current medications. Djybkypw-kwmolafddk-npwyzr ambien for prn use Obesity - chronic [...] symptoms worsen, or with any other concerns. [facility] shun harrison and saritha quick [...] pt consult with Dr. Shun Harrison at [facility]. Migraine headaches - start on topamax. Check labs-cbc, cmp, b12 level. . Numbness-bilateral lower hyp-fiukleef-mjpb to check labs including chem panel to [...]
[2019-03-03 06:58] LABS: BASOPHILS % (AUTO) 0 % (0-10); EOSINOPHILS # (AUTO) 0.1 10^3/uL (0.0-0.3); EOSINOPHILS % (AUTO) 1 % (0-10); HEMATOCRIT 40 % (35-52); HEMOGLOBIN 14.4 G/DL (11.5-16.0); LYMPHOCYTES # (AUTO) 0.8 X 10^3 (1.0-4.0); LYMPHOCYTES % (AUTO) 12 % (12-44); MEAN CORPUSCULAR HEMOGLOBIN 30 PG (25-34); MEAN CORPUSCULAR HGB CONC 36 G/DL (32-36); MEAN CORPUSCULAR VOLUME 84 FL (80-99); MEAN PLATELET VOLUME 9.8 FL (7.4-10.4); MONOCYTES # (AUTO) 0.5 X 10^3 (0.0-1.0); MONOCYTES % (AUTO) 7 % (0-12); NEUTROPHILS # (AUTO) 5.4 X 10^3 (1.8-7.8); NEUTROPHILS % (AUTO) 81 % (42-75); PLATELET COUNT 325 10^3/uL (130-400); RED CELL DISTRIBUTION WIDTH 13.3 % (10.0-14.5); WHITE BLOOD COUNT 6.8 10^3/uL (4.3-11.0)
--- OUTSIDE RECORDS SUMMARY | 2019-03-03 07:00 | XMS REPORT | CCD ---
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 Role Phone Bianca Jain PP Unavailable CCM Unavailable Summary Purpose Interface Exchange Insurance Providers Payer name Policy type / Coverage type Covered constitution party ID Effective Begin Date Effective End Date [facility] Alert [id number] Unknown Family history Brother Diagnosis Age At [...] Effective Dates Employment Unknown Currently employed [employer] Registration 11/20/2016 Marital status Unknown 01/05/[address]: 712511334 Never smoker 09/29/[address]: 797519 Currently drinks alcohol 3 weekly 09/29/2011 Has the patient ever used illegal drugs? Unknown Has never used illegal drugs 09/29/2011 Allergies, Adverse Reactions, Alerts Substance Reaction Codes Entered Date Inactivated Date Status * NO KNOWN DRUG ALLERGIES Unknown 09/29/2011 No Inactive Date Active Past Medical History Illness Codes Condition Status Onset Date Resolved Date Abnormal uterine and vaginal bleeding, unspecified ICD-9: [...] Problems Condition Codes Effective Dates Condition Status Abnormal uterine and vaginal bleeding, unspecified ICD-9: [...] Fill Instructions Ambien 10 mg tablet RxNorm: 778932 Tablet(s) TAKE ONE TABLET BY MOUTH AT BEDTIME NEEDED 10/26/2018 11/24/2018 Active topiramate 25 mg tablet RxNorm: 973824 TAKE 1 TABLET BY MOUTH TWICE DAILY 10/26/2018 No Stop Date Active Xanax 0.5 mg tablet RxNorm: 795580 1 Tablet(s) PO Q8 as needed anxiety 10/26/2018 11/24/2018 Active Xanax 0.5 mg tablet RxNorm: 067207 Tablet(s) TAKE ONE TABLET BY MOUTH EVERY 8 HOURS NEEDED FOR ANXIETY 08/27/2018 10/25/2018 Inactive Ambien 10 mg tablet RxNorm: 663633 Tablet(s) TAKE ONE TABLET BY MOUTH AT BEDTIME NEEDED 08/27/2018 10/25/2018 Inactive Ambien 10 mg tablet RxNorm: 352201 Tablet(s) TAKE ONE TABLET BY MOUTH AT BEDTIME NEEDED 07/29/2018 08/26/2018 Inactive Lexapro 10 mg tablet RxNorm: 249053 TAKE 1 TABLET BY MOUTH IN THE EVENING 07/27/2018 No Stop Date Active Xanax 0.5 mg tablet RxNorm: 296416 1 Tablet(s) PO Q8 as needed anxiety 06/18/2018 09/15/2018 Inactive Xanax 0.5 mg tablet RxNorm: 760588 Tablet(s) TAKE ONE TABLET BY MOUTH EVERY 8 HOURS NEEDED FOR ANXIETY 06/18/2018 08/15/2018 Inactive Ambien 10 mg tablet RxNorm: 706628 1 Tablet(s) PO HS PRN TAKE ONE TABLET BY MOUTH AT BEDTIME NEEDED 05/20/2018 10/25/2018 Inactive topiramate 25 mg tablet RxNorm: 522430 TAKE ONE TABLET BY MOUTH TWICE DAILY 04/21/2018 10/25/2018 Inactive Xanax 0.5 mg tablet RxNorm: 288900 1 Tablet(s) PO Q8 as needed anxiety 03/24/2018 06/17/2018 Inactive Ambien 10 mg tablet RxNorm: 432813 1 Tablet(s) PO HS PRN TAKE ONE TABLET BY MOUTH AT BEDTIME NEEDED 02/22/2018 05/19/2018 Inactive naproxen 500 mg tablet RxNorm: 432962 1 Tablet(s) PO BID 02/22/2018 02/26/2018 Inactive Ambien 10 mg tablet RxNorm: 068122 TAKE ONE TABLET BY MOUTH AT BEDTIME NEEDED 02/19/2018 07/28/2018 Inactive Dexilant 60 mg capsule, delayed release RxNorm: 350797 1 Capsule(s) PO daily 01/21/2018 No Stop Date Active Xanax 0.5 mg tablet RxNorm: 972154 Tablet(s) TAKE ONE TABLET BY MOUTH EVERY 8 HOURS NEEDED FOR ANXIETY 01/19/2018 03/17/2018 Inactive Lexapro 10 mg tablet RxNorm: 190083 TAKE ONE TABLET BY MOUTH IN THE EVENING 01/18/2018 07/26/2018 Inactive Xanax 0.5 mg tablet RxNorm: 416952 1 Tablet(s) PO Q8 PRN TAKE ONE TABLET BY MOUTH EVERY 8 HOURS NEEDED FOR ANXIETY 12/17/2017 01/14/2018 Inactive topiramate 25 mg tablet RxNorm: 264809 TAKE ONE TABLET BY MOUTH TWICE DAILY 10/13/2017 04/20/2018 Inactive K-Dur 10 mEq tablet,extended release RxNorm: 154345 1 Tablet(s) PO daily 09/11/2017 09/11/2017 Inactive potassium chloride ER 10 mEq tablet,extended release RxNorm: 023176 1 Tablet(s) PO daily 09/11/2017 09/10/2017 Inactive Lasix 20 mg tablet RxNorm: 648277 1 Tablet(s) PO daily for three days 09/11/2017 09/10/2017 Inactive potassium chloride ER 10 mEq tablet,extended release RxNorm: 938864 1 Tablet(s) PO daily 09/11/2017 09/13/2017 Inactive Lasix 20 mg tablet RxNorm: 696340 1 Tablet(s) PO daily for three days 09/11/2017 09/13/2017 Inactive naproxen 500 mg tablet RxNorm: 856234 1 Tablet(s) PO BID 09/01/2017 09/05/2017 Inactive Ambien 10 mg tablet RxNorm: 709820 1 Tablet(s) PO HS PRN TAKE ONE TABLET BY MOUTH AT BEDTIME NEEDED 08/14/2017 02/22/2018 Inactive Xanax 0.5 mg tablet RxNorm: 450233 1 Tablet(s) PO Q8 PRN TAKE ONE TABLET BY MOUTH EVERY 8 HOURS NEEDED FOR ANXIETY 08/14/2017 01/18/2018 Inactive Lexapro 10 mg tablet RxNorm: 298731 TAKE ONE TABLET BY MOUTH IN THE EVENING 07/13/2017 01/08/2018 Inactive Xanax 0.5 mg tablet RxNorm: 473879 1 Tablet(s) PO Q8 PRN TAKE ONE TABLET BY MOUTH EVERY 8 HOURS NEEDED FOR ANXIETY 06/18/2017 07/16/2017 Inactive Xanax 0.25 mg tablet RxNorm: 268671 Tablet(s) TAKE ONE TABLET BY MOUTH EVERY 8 HOURS NEEDED FOR ANXIETY 06/17/2017 06/17/2017 Inactive Ambien 10 mg tablet RxNorm: 794965 1 Tablet(s) PO QHS as needed insomnia 06/17/2017 08/17/2017 Inactive topiramate 25 mg tablet RxNorm: 489334 TAKE ONE TABLET BY MOUTH TWICE DAILY 06/16/2017 10/12/2017 Inactive Lexapro 10 mg tablet RxNorm: 605186 TAKE ONE TABLET BY MOUTH IN THE EVENING 04/17/2017 07/12/2017 Inactive Ambien 10 mg tablet RxNorm: 660114 1 Tablet(s) PO QHS as needed insomnia 04/17/2017 01/18/2018 Inactive Xanax 0.25 mg tablet RxNorm: 058891 Tablet(s) TAKE ONE TABLET BY MOUTH EVERY 8 HOURS NEEDED FOR ANXIETY 04/17/2017 06/13/2017 Inactive topiramate 25 mg tablet RxNorm: 456465 TAKE ONE TABLET BY MOUTH TWICE DAILY 03/20/2017 06/15/2017 Inactive Flagyl 500 mg tablet RxNorm: 993145 1 Tablet(s) PO TID do not drink alcohol when taking this medication 02/05/2017 02/09/2017 Inactive Ambien 10 mg tablet RxNorm: 160561 1 Tablet(s) PO QHS as needed insomnia 01/23/2017 04/21/2017 Inactive Xanax 0.25 mg tablet RxNorm: 654156 TAKE ONE TABLET BY MOUTH EVERY 8 HOURS NEEDED FOR ANXIETY 01/23/2017 04/21/2017 Inactive Xanax 0.25 mg tablet RxNorm: 697093 1 Tablet(s) PO TAKE ONE TABLET BY MOUTH EVERY 8 HOURS NEEDED FOR ANXIETY 11/28/2016 01/18/2018 Inactive Lexapro 10 mg tablet RxNorm: 366286 1 Tablet(s) PO QPM 11/20/2016 04/16/2017 Inactive topiramate 25 mg tablet RxNorm: 394528 1 Tablet(s) PO BID start one pill at hs, if migraines not improving, then increase to bid 11/20/2016 01/18/2018 Inactive Ambien 10 mg tablet RxNorm: 339966 1 Tablet(s) PO QHS as needed TAKE ONE TABLET BY MOUTH AT BEDTIME NEEDED FOR INSOMNIA 10/31/2016 01/18/2018 Inactive acyclovir 400 mg tablet RxNorm: 624120 1 Tablet(s) PO TID 10/01/2016 10/05/2016 Inactive acyclovir 400 mg tablet RxNorm: 874358 1 Tablet(s) PO TID 10/01/2016 09/30/2016 Inactive phentermine 37.5 mg tablet RxNorm: 038534 1 Tablet(s) PO daily 09/26/2016 02/04/2017 Inactive Xanax 0.25 mg tablet RxNorm: 612458 Tablet(s) TAKE ONE TABLET BY MOUTH EVERY 8 HOURS NEEDED FOR ANXIETY 08/25/2016 01/18/2018 Inactive Ambien 10 mg tablet RxNorm: 234827 1 Tablet(s) PO daily as needed TAKE ONE TABLET BY MOUTH AT BEDTIME NEEDED FOR INSOMNIA 08/25/2016 11/19/2016 Inactive phentermine 37.5 mg tablet RxNorm: 834890 1 Tablet(s) PO daily 08/25/2016 09/25/2016 Inactive topiramate 25 mg tablet RxNorm: 906804 TAKE ONE TABLET BY MOUTH TWICE DAILY 07/09/2016 08/24/2016 Inactive Xanax 0.25 mg tablet RxNorm: 955918 Tablet(s) TAKE ONE TABLET BY MOUTH EVERY 8 HOURS NEEDED FOR ANXIETY 04/28/2016 06/25/2016 Inactive Ambien 10 mg tablet RxNorm: 225442 1 Tablet(s) PO daily as needed TAKE ONE TABLET BY MOUTH AT BEDTIME NEEDED FOR INSOMNIA 04/28/2016 06/24/2016 Inactive topiramate 25 mg tablet RxNorm: 536964 1 Tablet(s) PO BID 02/20/2016 06/18/2016 Inactive Ambien 10 mg tablet RxNorm: 959903 1 Tablet(s) PO daily as needed TAKE ONE TABLET BY MOUTH AT BEDTIME NEEDED FOR INSOMNIA 01/03/2016 03/31/2016 Inactive (Response to an electronic controlled substance refill request - RxReferenceNumber: [id number]) Xanax 0.25 mg tablet RxNorm: 812807 Tablet(s) TAKE ONE TABLET BY MOUTH EVERY 8 HOURS NEEDED FOR ANXIETY 01/03/2016 01/18/2018 Inactive (Response to an electronic controlled substance refill request - RxReferenceNumber: [id number]) meclizine 25 mg tablet RxNorm: 702939 1 Tablet(s) PO QID 12/13/2015 01/11/2016 Inactive Xanax 0.25 mg tablet RxNorm: 815549 Tablet(s) TAKE ONE TABLET BY MOUTH EVERY 8 HOURS NEEDED FOR ANXIETY 11/23/2015 01/18/2018 Inactive (Response to an electronic controlled substance refill request - RxReferenceNumber: [id number]) topiramate 25 mg tablet RxNorm: 178905 1 Tablet(s) PO BID 11/02/2015 12/12/2015 Inactive pt needs to make an appt Ambien 10 mg tablet RxNorm: 138614 1 Tablet(s) PO daily as needed TAKE ONE TABLET BY MOUTH AT BEDTIME NEEDED FOR INSOMNIA 10/30/2015 11/19/2016 Inactive (Response to an electronic controlled substance refill request - RxReferenceNumber: [id number]) Xanax 0.25 mg tablet RxNorm: 134946 Tablet(s) TAKE ONE TABLET BY MOUTH EVERY 8 HOURS NEEDED FOR ANXIETY 09/20/2015 10/18/2015 Inactive (Response to an electronic controlled substance refill request - RxReferenceNumber: [id number]) Xanax 0.25 mg tablet RxNorm: 356734 Tablet(s) TAKE ONE TABLET BY MOUTH EVERY 8 HOURS NEEDED FOR ANXIETY 06/28/2015 08/25/2015 Inactive (Response to an electronic controlled substance refill request - RxReferenceNumber: [id number]) topiramate 25 mg tablet RxNorm: 369711 1 Tablet(s) PO BID 06/27/2015 10/24/2015 Inactive Ambien 10 mg tablet RxNorm: 382992 1 Tablet(s) PO daily as needed TAKE ONE TABLET BY MOUTH AT BEDTIME NEEDED FOR INSOMNIA 06/26/2015 09/23/2015 Inactive (Response to an electronic controlled substance refill request - RxReferenceNumber: [id number]) Xanax 0.25 mg tablet RxNorm: 540311 Tablet(s) TAKE ONE TABLET BY MOUTH EVERY 8 HOURS NEEDED FOR ANXIETY 04/04/2015 06/02/2015 Inactive (Response to an electronic controlled substance refill request - RxReferenceNumber: [id number]) Ambien 10 mg tablet RxNorm: 416807 1 Tablet(s) PO daily as needed TAKE ONE TABLET BY MOUTH AT BEDTIME NEEDED FOR INSOMNIA 02/16/2015 05/16/2015 Inactive (Response to an electronic controlled substance refill request - RxReferenceNumber: [id number]) Ambien 10 mg tablet RxNorm: 041186 TAKE ONE TABLET BY MOUTH AT BEDTIME NEEDED FOR INSOMNIA 01/11/2015 02/09/2015 Inactive (Response to an electronic controlled substance refill request - RxReferenceNumber: [id number]) Ambien 10 mg tablet RxNorm: 890843 1 Tablet(s) PO QHS as needed TAKE ONE TABLET BY MOUTH AT BEDTIME NEEDED 01/11/2015 01/11/2015 Inactive (Appended: Controlled substance eRx refill - RxReferenceNumber: [id number]) topiramate 25 mg tablet RxNorm: 252020 1 Tablet(s) PO BID 01/11/2015 05/10/2015 Inactive Xanax 0.25 mg tablet RxNorm: 900546 TAKE ONE TABLET BY MOUTH EVERY 8 HOURS NEEDED FOR ANXIETY 01/11/2015 02/09/2015 Inactive (Response to an electronic controlled substance refill request - RxReferenceNumber: [id number]) Xanax 0.25 mg tablet RxNorm: 492190 Tablet(s) TAKE ONE TABLET BY MOUTH EVERY 8 HOURS NEEDED FOR ANXIETY 01/11/2015 01/11/2015 Inactive (Response to an electronic controlled substance refill request - RxReferenceNumber: [id number]) Xanax 0.25 mg tablet RxNorm: 803911 Tablet(s) TAKE ONE TABLET BY MOUTH EVERY 8 HOURS NEEDED FOR ANXIETY 11/20/2014 12/17/2014 Inactive (Response to an electronic controlled substance refill request - RxReferenceNumber: [id number]) Xanax 0.25 mg tablet RxNorm: 575407 TAKE ONE TABLET BY MOUTH EVERY 8 HOURS NEEDED FOR ANXIETY 09/14/2014 10/13/2014 Inactive (Response to an electronic controlled substance refill request - RxReferenceNumber: [id number]) Xanax 0.25 mg tablet RxNorm: 259549 Tablet(s) PO TAKE ONE TABLET BY MOUTH EVERY 8 HOURS NEEDED FOR ANXIETY 09/12/2014 09/15/2014 Inactive (Appended: Controlled substance eRx refill - RxReferenceNumber: [id number]) Xanax 0.25 mg tablet RxNorm: 229578 TAKE ONE TABLET BY MOUTH EVERY 8 HOURS NEEDED FOR ANXIETY 07/31/2014 07/31/2014 Inactive (Response to an electronic controlled substance refill request - RxReferenceNumber: [id number]) Ambien 10 mg tablet RxNorm: 697147 TAKE ONE TABLET BY MOUTH AT BEDTIME NEEDED FOR INSOMNIA 07/31/2014 11/19/2016 Inactive (Response to an electronic controlled substance refill request - RxReferenceNumber: [id number]) Xanax 0.25 mg tablet RxNorm: 426502 TAKE ONE TABLET BY MOUTH EVERY 8 HOURS NEEDED FOR ANXIETY 07/31/2014 08/29/2014 Inactive (Response to an electronic controlled substance refill request - RxReferenceNumber: [id number]) metronidazole 500 mg tablet RxNorm: 997292 1 Tablet(s) PO TID 05/25/2014 05/31/2014 Inactive Diflucan 150 mg tablet RxNorm: 120561 1 Tablet(s) PO daily 05/25/2014 05/29/2014 Inactive topiramate 25 mg tablet RxNorm: 965214 1 Tablet(s) PO BID 04/24/2014 11/19/2014 Inactive Xanax 0.25 mg tablet RxNorm: 870641 Tablet(s) PO TAKE ONE TABLET BY MOUTH EVERY 8 HOURS NEEDED FOR ANXIETY 01/17/2014 07/31/2014 Inactive (Appended: Controlled substance eRx refill - RxReferenceNumber: [id number]) Xanax 0.25 mg tablet RxNorm: 689478 Tablet(s) PO TAKE ONE TABLET BY MOUTH EVERY 8 HOURS NEEDED FOR ANXIETY 01/16/2014 01/17/2014 Inactive (Appended: Controlled substance eRx refill - RxReferenceNumber: [id number]) Xanax 0.25 mg tablet RxNorm: 438296 Tablet(s) PO TAKE ONE TABLET BY MOUTH EVERY 8 HOURS NEEDED FOR ANXIETY 01/13/2014 09/11/2014 Inactive (Appended: Controlled substance eRx refill - RxReferenceNumber: [id number]) Xanax 0.25 mg tablet RxNorm: 211944 Tablet(s) PO TAKE ONE TABLET BY MOUTH EVERY 8 HOURS NEEDED FOR ANXIETY 11/21/2013 01/16/2014 Inactive (Appended: Controlled substance eRx refill - RxReferenceNumber: [id number]) Xanax 0.25 mg tablet RxNorm: 718178 Tablet(s) PO TAKE ONE TABLET BY MOUTH EVERY 8 HOURS NEEDED FOR ANXIETY 11/18/2013 01/15/2014 Inactive (Appended: Controlled substance eRx refill - RxReferenceNumber: [id number]) Ambien 10 mg tablet RxNorm: 419559 Tablet(s) PO TAKE ONE TABLET BY MOUTH EVERY DAY AT BEDTIME NEEDED 08/31/2013 07/31/2014 Inactive (Appended: Controlled substance eRx refill - RxReferenceNumber: [id number]) Ambien 10 mg tablet RxNorm: 592336 Tablet(s) PO TAKE ONE TABLET BY MOUTH EVERY DAY AT BEDTIME NEEDED 08/31/2013 08/30/2013 Inactive (Appended: Controlled substance eRx refill - RxReferenceNumber: [id number]) Xanax 0.25 mg tablet RxNorm: 986396 Tablet(s) PO TAKE ONE TABLET BY MOUTH EVERY 8 HOURS NEEDED FOR ANXIETY 07/21/2013 11/21/2013 Inactive (Appended: Controlled substance eRx refill - RxReferenceNumber: [id number]) Xanax 0.25 mg tablet RxNorm: 122326 Tablet(s) PO TAKE ONE TABLET BY MOUTH EVERY 8 HOURS NEEDED FOR ANXIETY 07/19/2013 07/21/2013 Inactive (Appended: Controlled substance eRx refill - RxReferenceNumber: [id number]) omeprazole 20 mg capsule,delayed release RxNorm: 174140 Capsule(s) PO TAKE ONE CAPSULE BY MOUTH EVERY DAY 05/23/2013 04/23/2014 Inactive Flagyl 500 mg tablet RxNorm: 181404 1 Tablet(s) PO BID 02/21/2013 02/20/2013 Inactive Flagyl 500 mg tablet RxNorm: 243829 1 Tablet(s) PO BID 02/21/2013 02/27/2013 Inactive fluconazole 150 mg tablet RxNorm: 945789 1 Tablet(s) PO PRN one pill as needed for yeast infection symptoms 02/14/2013 04/23/2014 Inactive Xanax 0.25 mg tablet RxNorm: 369129 Tablet(s) PO TAKE ONE TABLET BY MOUTH EVERY 8 HOURS NEEDED FOR ANXIETY 02/03/2013 11/20/2013 Inactive (Appended: Controlled substance eRx refill - RxReferenceNumber: [id number]) Ambien 10 mg tablet RxNorm: 761709 Tablet(s) PO TAKE ONE TABLET BY MOUTH AT BEDTIME NEEDED 02/03/2013 08/31/2013 Inactive (Appended: Controlled substance eRx refill - RxReferenceNumber: [id number]) Ambien 10 mg tablet RxNorm: 630096 Tablet(s) PO TAKE ONE TABLET BY MOUTH AT BEDTIME NEEDED 02/03/2013 01/10/2015 Inactive (Appended: Controlled substance eRx refill - RxReferenceNumber: [id number]) Xanax 0.25 mg tablet RxNorm: 488558 Tablet(s) PO 02/03/2013 07/20/2013 Inactive TAKE ONE TABLET BY MOUTH EVERY 8 HOURS NEEDED FOR ANXIETY (Appended: Controlled substance eRx refill - RxReferenceNumber: [id number]) Xanax 0.25 mg tablet RxNorm: 521971 Tablet(s) PO TAKE ONE TABLET BY MOUTH EVERY 8 HOURS NEEDED FOR ANXIETY 12/08/2012 02/03/2013 Inactive (Appended: Controlled substance eRx refill - RxReferenceNumber: [id number]) Ambien 10 mg tablet RxNorm: 284353 Tablet(s) PO TAKE ONE TABLET BY MOUTH AT BEDTIME NEEDED 12/08/2012 02/02/2013 Inactive (Appended: Controlled substance eRx refill - RxReferenceNumber: [id number]) Xanax 0.25 mg tablet RxNorm: 151868 Tablet(s) PO TAKE ONE TABLET BY MOUTH EVERY 8 HOURS NEEDED FOR ANXIETY 12/08/2012 12/07/2012 Inactive (Appended: Controlled substance eRx refill - RxReferenceNumber: [id number]) Ambien 10 mg tablet RxNorm: 142135 Tablet(s) PO TAKE ONE TABLET BY MOUTH AT BEDTIME NEEDED 12/08/2012 02/03/2013 Inactive (Appended: Controlled substance eRx refill - RxReferenceNumber: [id number]) Ambien 10 mg tablet RxNorm: 446087 Tablet(s) PO 08/27/2012 12/08/2012 Inactive TAKE ONE TABLET BY MOUTH AT BEDTIME NEEDED (Appended: Controlled substance eRx refill - RxReferenceNumber: [id number]) Xanax 0.25 mg tablet RxNorm: 994529 Tablet(s) PO 08/24/2012 02/02/2013 Inactive TAKE ONE TABLET BY MOUTH EVERY 8 HOURS NEEDED FOR ANXIETY (Appended: Controlled substance eRx refill - RxReferenceNumber: [id number]) Ambien 10 mg tablet RxNorm: 806431 Tablet(s) PO 08/24/2012 08/27/2012 Inactive TAKE ONE TABLET BY MOUTH AT BEDTIME NEEDED (Appended: Controlled substance eRx refill - RxReferenceNumber: [id number]) Xanax 0.25 mg tablet RxNorm: 716172 Tablet(s) PO 08/24/2012 12/08/2012 Inactive TAKE ONE TABLET BY MOUTH EVERY 8 HOURS NEEDED FOR ANXIETY (Appended: Controlled substance eRx refill - RxReferenceNumber: [id number]) Xanax 0.25 mg tablet RxNorm: 149416 1 Tablet(s) PO Q8 PRN 07/09/2012 08/24/2012 Inactive omeprazole 20 mg capsule,delayed release RxNorm: 170885 1 Capsule(s) PO daily 05/19/2012 12/14/2012 Inactive Ambien 10 mg tablet RxNorm: 354396 1 Tablet(s) PO QHS 05/19/2012 08/24/2012 Inactive Xanax 0.25 mg tablet RxNorm: 104738 1 Tablet(s) PO Q8 PRN 03/16/2012 06/13/2012 Inactive Diflucan 150 mg Tab RxNorm: 917887 1 Tablet(s) PO daily 01/05/2012 01/14/2012 Inactive Ambien 10 mg tablet RxNorm: 214054 1 Tablet(s) PO QHS 01/02/2012 04/30/2012 Inactive Ambien 10 mg Tab RxNorm: 407013 1 Tablet(s) PO QHS 12/24/2011 01/01/2012 Inactive Rocephin 500 mg Solution for Injection RxNorm: 602723 1 Milliliter(s) Inj 11/13/2011 11/13/2011 Inactive omeprazole 20 mg capsule,delayed release RxNorm: 296737 1 Capsule(s) PO daily 10/07/2011 05/18/2012 Inactive omeprazole 20 mg Cap, Delayed Release RxNorm: 957209 1 Capsule(s) PO daily 10/07/2011 04/03/2012 Inactive Ambien 5 mg Tab RxNorm: 532043 1 Tablet(s) PO QHS 1 tab q hs prn insomnia 10/07/2011 12/23/2011 Inactive Xanax 0.25 mg Tab RxNorm: 960576 1 Tablet(s) PO Q8 PRN 09/29/2011 03/15/2012 Inactive Medication Administered Medication Codes Instructions Start Date Status Rocephin 500 mg Solution for Injection RxNorm: 171497 1Milliliter 11/13/2011 No longer Active Immunizations Vaccine Codes Date Status Influenza CVX: 141 07/12/2016 completed Assessments Condition Codes Effective Dates Excessive and frequent menstruation with regular cycle ICD-10: N92.0 ICD-9: 626.2 02/22/2018 Gastro-esophageal reflux disease with esophagitis ICD-10: K21.0 ICD-9: 530.11 01/21/2018 Pain in left leg ICD-10: M79.605 ICD-9: 729.5 09/01/2017 Generalized anxiety disorder ICD-10: F41.1 ICD-9: 300.02 06/18/2017 Pain in right shoulder ICD-10: M25.511 ICD-9: [...] ANXIETY DISEASE ICD-9: 300.02 06/28/2015 Right ankle sprain ICD-9: 845.00 05/23/2014 Right ankle pain ICD-9: 719.47 05/23/2014 Laboratory exam ordered as part of [...] Visit Reason For Visit Effective Dates Notes menstrual irregularity 02/22/2018 gastroesophageal reflux 01/21/2018 lower [...] Item Item Code Result Date GC/CHL PRB 0994789 CHLM PROBE NEG 04/26/2014 GC/CHL PRB 0319634 GC PROBE NEG 04/26/2014 TSH 0178235 TSH 2.977 uIU/ML 02/16/2013 GC/CHL PRB 9877511 SOURCE KIMBERLYN UNKNOWN 02/15/2013 GC/CHL PRB 6236993 CHLM PROBE NEG 02/15/2013 GC/CHL PRB 3123648 GC PROBE NEG 02/15/2013 CHEM 14 1183434 AST 12 U/L 02/15/2013 CHEM 14 3361454 ALT 16 IU/L 02/15/2013 CHEM 14 8264970 BUN 13 MG/DL 02/15/2013 CHEM 14 3993229 ALBUMIN 4.6 GM/DL 02/15/2013 CHEM 14 5669372 CHLORIDE 104 MMOL/L 02/15/2013 CHEM 14 9798386 BILI TOT 0.5 MG/DL 02/15/2013 CHEM 14 9783660 ALK PHOS 55 U/L 02/15/2013 CHEM 14 2556278 SODIUM 137 MMOL/L 02/15/2013 CHEM 14 8356368 CREATININE 0.79 MG/DL 02/15/2013 CHEM 14 5405109 CALCIUM 9.3 MG/DL 02/15/2013 CHEM 14 2543423 POTASSIUM 4.0 MMOL/L 02/15/2013 CHEM 14 8102599 PROT TOT 6.9 GM/DL 02/15/2013 CHEM 14 3839088 GLUCOSE 99 MG/DL 02/15/2013 CHEM 14 5359014 BICARB 29 MMOL/L 02/15/2013 CHEM 14 8456079 ANION GAP 4 MEQ/L 02/15/2013 GFR CALC 4335826 GFR AA >60 ML/MIN 02/15/2013 GFR CALC 5585012 GFR NON-AA >60 ML/MIN 02/15/2013 LIPID GRP HDL TEST 38 MG/DL 02/15/2013 LIPID GRP TRIG 126 MG/DL 02/15/2013 LIPID GRP TEST LDL 112 MG/DL 02/15/2013 LIPID GRP CHOL 175 MG/DL 02/15/2013 LIPID GRP RCHOL/HDL 4.61 RATIO 02/15/2013 CBC 7770974 WBC 5.8 10e9/L 02/15/2013 CBC 0625772 RBC 4.51 10e12/L 02/15/2013 CBC 7381045 HGB 13.8 g/dL 02/15/2013 CBC 4573050 HCT DET 39.0 % 02/15/2013 CBC 2303349 MCV 86.5 fL 02/15/2013 CBC 5465593 MCH 30.6 pg 02/15/2013 CBC 7430337 MCHC 35.4 g/dL 02/15/2013 CBC 7838386 PLT 284 10e9/L 02/15/2013 CBC 5338219 MPV 10.3 fL 02/15/2013 CBC 5367095 BLANQUITA % 62.9 % 02/15/2013 CBC 4938571 LY % 26.8 % 02/15/2013 CBC 4955387 MON % 9.1 % 02/15/2013 CBC 3072769 EOS % 1.2 % 02/15/2013 CBC 0519863 BASO % 0.0 % 02/15/2013 CBC 3471427 RDW 14.4 % 02/15/2013 CBC 0190213 ABS BLANQUITA 3.65 10e9/L 02/15/2013 CBC 2587479 ABS LYMPH 1.55 10e9/L 02/15/2013 CBC 7325004 ABS MONO 0.53 10e9/L 02/15/2013 CBC 5504430 ABS EOS 0.07 10e9/L 02/15/2013 CBC 1838774 ABS BASO 0.00 10e9/L 02/15/2013 CBC 4273998 RDW-SD 44.0 fL 02/15/2013 Review of Systems System Result Effective Dates Constitutional No recent illness 02/22/2018 Constitutional No [...] PROBE (CHYLMD TRACH DNA AMP PROBE) CPT-4: 55430 04/24/2014 GC PROBE (N.GONORRHOEAE DNA AMP PROB) CPT-4: 26594 04/24/2014 ROUTINE VENIPUNCTURE CPT- 4: 75221 02/15/2013 PREV VISIT EST AGE 40-64 CPT-4: 40020 01/05/2012 ROCEPHIN, PER 250 MG CPT- 4: J0696 11/13/2011 THER/PROPH/DIAG INJ SC/IM CPT-4: 25182 11/13/2011 REMOVE IMPACTED EAR WAX UNI CPT-4: 37802 11/13/2011 Vital Signs Date Vital 02/22/2018 Blood Pressure 1: 132/70 Code: 8480-6 BMI: 33.1 Code: 09144-1 Heart Rate 1: 75 bpm Height: 5'8" SpO2: 97% Weight: 218 lbs 01/21/2018 Blood Pressure 1: 122/78 Code: 8480-6 Heart Rate 1: 73 bpm Height: 5'8" SpO2: 98% Weight: 09/01/2017 Blood Pressure 1: 134/82 Code: 8480-6 Heart Rate 1: 80 bpm Height: SpO2: 98% Weight: 06/18/2017 Blood Pressure 1: 122/76 Code: 8480-6 BMI: 30.7 Code: 52353-2 Heart Rate 1: 78 bpm Height: 5'8" SpO2: 98% Weight: 202 lbs 02/19/2017 Blood Pressure 1: 132/70 Code: 8480-6 BMI: 30.1 Code: 25887-3 Heart Rate 1: 72 bpm Height: 5'8" SpO2: 98% Weight: 198 lbs 02/05/2017 Blood Pressure 1: 124/84 Code: 8480-6 BMI: 29.3 Code: 22282-2 Heart Rate 1: 98 bpm Height: 5'8" SpO2: 98% Weight: 193 lbs 11/20/2016 Blood Pressure 1: 130/86 Code: 8480-6 BMI: 30.0 Code: 37057-4 Heart Rate 1: 90 bpm Height: 5'8" SpO2: 99% Weight: 197 lbs 09/26/2016 Blood Pressure 1: 124/84 Code: 8480-6 Heart Rate 1: 74 bpm SpO2: 97% Weight: 203 lbs 08/25/2016 Blood Pressure 1: 124/86 Code: 8480-6 BMI: 31.0 Code: 14190-6 Heart Rate 1: 90 bpm Height: 5'8" SpO2: 95% Weight: 204 lbs 12/13/2015 Blood Pressure 1: 112/80 Code: 8480-6 BMI: 31.5 Code: 28177-9 Heart Rate 1: 87 bpm Height: 5'8" SpO2: 97% Weight: 207 lbs 11/15/2015 Blood Pressure 1: 146/78 Code: 8480-6 BMI: 32.1 Code: 68259-9 Heart Rate 1: 96 bpm Height: 5'8" SpO2: 97% Weight: 211 lbs 06/28/2015 Blood Pressure 1: 132/64 Code: 8480-6 BMI: 29.5 Code: 15882-1 Heart Rate 1: 91 bpm Height: 5'8" SpO2: 98% Weight: 194 lbs 05/23/2014 Blood Pressure 1: 124/80 Code: 8480-6 BMI: 30.3 Code: 66536-9 Heart Rate 1: 68 bpm Height: 5'8" Weight: 199 lbs 04/24/2014 Blood Pressure 1: 132/72 Code: 8480-6 BMI: 30.7 Code: 08121-8 Heart Rate 1: 82 bpm Height: 5'8" SpO2: 98% Weight: 202 lbs 02/14/2013 Blood Pressure 1: 122/80 Code: 8480-6 BMI: 28.6 Code: 75990-3 Heart Rate 1: 84 bpm Height: 5'8" Respiratory Rate: 16 bpm Weight: 188 lbs 02/16/2012 Blood Pressure 1: 104/66 Code: 8480-6 BMI: 28.5 Code: 73456-0 Heart Rate 1: 76 bpm Height: 5'7" Weight: 182 lbs 01/05/2012 Blood Pressure 1: 100/64 Code: 8480-6 BMI: 28.7 Code: 97487-5 Heart Rate 1: 78 bpm Height: 5'7" Respiratory Rate: 16 bpm Weight: 183 lbs 11/13/2011 Blood Pressure 1: 116/78 Code: 8480-6 Heart Rate 1: 84 bpm Respiratory Rate: 16 bpm SpO2: 98% Temperature: 36.7 (C) / 98.1 (F) Weight: 181 lbs 09/29/2011 Blood Pressure 1: 118/82 Code: 8480-6 BMI: 36.8 Code: 94003-8 Heart Rate 1: 72 bpm Height: 4'10" Respiratory Rate: 16 bpm Weight: 176 lbs Functional Status No Functional Status data History of Present Illness Symptom Name Status Result Effective Date Notes menstrual irregularity Quality constant 02/22/2018 None menstrual [...] the day. 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 PATIENT, LEVEL III Diagnosis: Excessive and frequent menstruation with regular cycle[ICD10: N92.0] Maylin Jain MD, [facility] CPT-4: 26229 02/22/2018 ([id number]) 52287 EST. PATIENT, LEVEL III Diagnosis: Gastro-esophageal reflux disease with esophagitis[ICD10: K21.0] Unique Jain MD, [facility] CPT-4: 85935 01/21/2018 33733 EST. PATIENT, LEVEL III Diagnosis: Pain in left leg[ICD10: M79.605] Maylin Jain MD, [facility] CPT-4: 46530 09/01/2017 ([id number]) 27343 EST. PATIENT, LEVEL III Diagnosis: Generalized anxiety disorder[ICD10: F41.1] Unique Jain MD, [facility] CPT-4: 81031 06/18/2017 35310 EST. PATIENT, LEVEL IV Diagnosis: Pain in left shoulder[ICD10: M25.512] Diagnosis: Pain in right shoulder[ICD10: M25.511] Maylin Jain MD, [facility] CPT- 4: 24848 02/19/2017 ([id number]) PREV VISIT EST AGE 40-64 Diagnosis: Encounter for gynecological examination (general) (routine) without abnormal findings[ICD10: Z01.419] Bianca Jain MD, [facility] CPT-4: 64710 02/05/2017 ([id number]) 53768 EST. PATIENT, LEVEL III Diagnosis: Generalized anxiety disorder[ICD10: F41.1] Diagnosis: Other obesity due to excess calories[ICD10: E66.09] Bianca Jain MD, [facility] CPT-4: 55957 11/20/2016 ([id number]) Miscellaneous no charge Diagnosis: Other obesity due to excess calories[ICD10: E66.09] Maylin Jain MD, [facility] CPT-4: 91077 09/26/2016 ([id number]) 28104 EST. PATIENT, LEVEL IV Diagnosis: Generalized anxiety disorder[ICD10: F41.1] Diagnosis: Adjustment insomnia[ICD10: F51.02] Diagnosis: Other obesity due to excess calories[ICD10: E66.09] Unique Jain MD, [facility] CPT-4: 37708 08/25/2016 45583 EST. PATIENT, LEVEL IV Diagnosis: Dizziness and giddiness[ICD10: R42] Maylin Jain MD, [facility] CPT- 4: 98044 12/13/2015 64685 EST. PATIENT, LEVEL IV Diagnosis: Dizziness and giddiness[ICD10: R42] Diagnosis: Other chest pain[ICD10: R07.89] Maylin Jain MD, [facility] CPT-4: 66523 11/15/2015 ([id number]) 96030 EST. PATIENT, LEVEL III Diagnosis: GENERALIZED ANXIETY DISEASE[ICD9: 300.02] Diagnosis: Migraines[ICD9: 346.90] Unique Jain MD, [facility] CPT-4: 46166 06/28/2015 ([id number]) 32940 EST. PATIENT, LEVEL III Diagnosis: Right ankle pain[ICD9: 719.47] Diagnosis: Right ankle sprain[ICD9: 845.00] Unique Jain MD, [facility] CPT- 4: 11508 05/23/2014 ([id number]) PREV VISIT EST AGE 40-64 Diagnosis: ROUTINE GYNE EXAM[ICD9: V72.31] Diagnosis: Laboratory exam ordered as part of routine general medical examination[ICD9: V72.62] [facility] CPT-4: 89506 04/24/2014 ([id number]) PREV VISIT EST AGE 40-64 Diagnosis: Well woman exam with routine gynecological exam[ICD9: V72.31] [facility] CPT-4: 42147 02/14/2013 50015 EST. PATIENT, LEVEL IV Diagnosis: Numbness in both legs[ICD9: 782.0] Diagnosis: Myalgia[ICD9: 729.1] [facility] CPT-4: 96234 02/16/2012 ([id number]) 21828 EST. PATIENT, LEVEL IV Diagnosis: Acute maxillary sinusitis[ICD9: 461.0] Diagnosis: Cough[ICD9: 786.2] Diagnosis: Cerumen impaction[ICD9: 380.4] [facility] CPT-4: 45982 11/13/2011 ([id number]) OFFICE VISIT, NEW - LEVEL 3 Diagnosis: GENERALIZED ANXIETY DISEASE[ICD9: 300.02] Diagnosis: DEPRESSIVE DISORDER NEC[ICD9: 311] Diagnosis: Impacted cerumen[ICD9: 380.4] Diagnosis: HEARING LOSS[ICD9: 389.9] [facility] CPT-4: 10633 09/29/2011 Plan of Care Planned Activity Notes Codes Status Date Care Plan: Cbc With Differential Cancelled 02/23/2018 Care Plan: Bhcg Qual Cancelled 02/23/2018 Care Plan: Referral Order SNOMED-CT : [id number] Pending 02/23/2018 Visit Plan: Excessive menstrual bleeding and irregular menstruation - pt would like to be referred to OB and would like to know about a possible hysterectomy - will refer - pt is to notify clinic if symptoms do not improve, if they worsen, or with any changes, questions, or concerns. 02/22/2018 Appointment: Maylin Chowdhury WPtel: [address] [place], [place] [id number] (15 min) Moderate 02/22/2018 Patient Education: Patient [...] not improve. 09/01/2017 Appointment: Maylin Chowdhury WPtel: [facility]5 [facility] (30 min) Complex 09/01/2017 Patient Education: Patient Medication Summary Completed 09/01/2017 Appointment: Bianca Jain WPtel: [address] [place], [place] [id number] (15 min) Moderate 07/29/2017 Visit Plan: [...] not improve. 02/19/2017 Appointment: Maylin Chowdhury WPtel: [facility]5 [facility] (15 min) Moderate 02/19/2017 Patient Education: [...] PAP Pending 02/05/2017 Appointment: Bianca Jain WPtel: [facility]3 [facility] Well Woman 01/22/2017 Visit Plan: Obesity - chronic issue with this patient. The pt has been counseled about diet changes, calorie restriction, and need to exercise. Pt will RTC in one month for weight check. Anxiety - refill anxiolytic 11/20/2016 Appointment: [facility] [address] [facility] [facility] 11/20/2016 Patient Education: Patient [...] situational exposure. No change in current medications. Wazfziat-vibxrxybai-lrszsa ambien for prn use Obesity - chronic [...] situational exposure. No change in current medications. Abeynonh-aqrhxsheqa-sbbnvs ambien for prn use Obesity - chronic issue with this patient. The pt has been counseled about diet changes, calorie restriction, and need to exercise. Pt will RTC in one month for weight check. 08/25/2016 [facility]ment[facility] [phone] (15 min) Moderate 08/25/2016 Patient Education: Patient [...] pt consult with Dr. Shun Harrison at [facility]. Migraine headaches - start on topamax. 04/24/2014 Appointment: [facility] [address] [facility] [place] Pap Only 04/24/2014 Patient Education: Patient Medication Summary Completed 04/24/2014 Care Plan: PAP Pending 04/24/2014 [facility]ointment: [phone] [phone] [place] Other 05/31/2013 Patient Education: Patient Medication [...] Patient Medication Summary Completed 02/14/2013 Appointment: Bianca Jian WPtel: [address] [place], [place] [phone] [place] Pap Only 01/31/2013 Appointment: Unique Nichole WPtel: [address] [place], [place] [phone] Other 09/13/2012 Visit Plan: Numbness-bilateral lower hof-ubyihovn-ojss to check labs including chem panel to evaluate electrolytes as well as blood sugar, cbc, and b12 level. Recommend patient start on a multivitamin daily and drink plenty of fluids. Will call patient with labs results. Instructed patient to call with any concerns or worsening symptoms. Patient verbalized understanding of plan. 02/16/2012 Appointment: Unique Nichole WPtel: [address] [place], [place] [phone] Other 02/16/2012 Patient Education: Patient Medication Summary [...] skin cancer. 01/05/2012 Appointment: Bianca Jain WPtel: [facility] [place] Pap Only 01/05/2012 Patient Education: [...] not improved. 11/13/2011 Appointment: Bianca Jain WPtel: [address] [place] [address] [place] Other 11/13/2011 Patient Education: Patient Medication [...] removal process. 09/29/2011 Appointment: Bianca Jain WPtel: [address] [place], [place] [phone] [place] New Patient 09/29/2011 Patient Education: Patient [...] situational exposure. No change in current medications. Vdnsgmgs-cnxucbpvrz-etlqsy ambien for prn use Obesity - chronic [...] situational exposure. No change in current medications. Eeigytxs-fmnjsgpdtl-rvjxec ambien for prn use Obesity - chronic [...] symptoms are not improving. . Well Adult Female - exam completed. [...] symptoms worsen, or with any other concerns. solo plastic surgery shun harrison and saritha quick [...] pt consult with Dr. Shun Harrison at [facility]. Migraine headaches - start on topamax. Check labs-cbc, cmp, b12 level. . Numbness-bilateral lower ydv-kiybufkn-pvgf to check labs including chem panel to [...]
--- OUTSIDE RECORDS SUMMARY | 2019-03-03 07:03 | XMS REPORT | CCD ---
Author Author [facility] Organization [facility] Address [address] [place] [address] Phone Care Team Providers Care Transportation Planning Engineer Name Role Phone Bianca Jain PP Unavailable CCM Unavailable Summary Purpose Interface Exchange Insurance Providers Payer name Policy type / Coverage type Covered democrat ID Effective Begin Date Effective End Date [employer] [facility] [employer] [id number] Unknown Family history Brother Diagnosis Age At [...] Effective Dates Employment Unknown Currently employed [employer] Registration 11/20/2016 Marital status Unknown 01/05/[address]: 984203035 Never smoker 09/29/[address]: 318549 Currently drinks alcohol 3 weekly 09/29/2011 Has [...] Fill Instructions Xanax 0.5 mg tablet RxNorm: 546968 Tablet(s) TAKE ONE TABLET BY MOUTH EVERY 8 HOURS NEEDED FOR ANXIETY 08/27/2018 10/25/2018 Active Ambien 10 mg tablet RxNorm: 155672 Tablet(s) TAKE ONE TABLET BY MOUTH AT BEDTIME NEEDED 08/27/2018 No Stop Date Active Ambien 10 mg tablet RxNorm: 296691 Tablet(s) TAKE ONE TABLET BY MOUTH AT BEDTIME NEEDED 07/29/2018 08/26/2018 Inactive Lexapro 10 mg tablet RxNorm: 684458 TAKE 1 TABLET BY MOUTH IN THE EVENING 07/27/2018 No Stop Date Active Xanax 0.5 mg tablet RxNorm: 775268 1 Tablet(s) PO Q8 as needed anxiety 06/18/2018 09/15/2018 Active Xanax 0.5 mg tablet RxNorm: 982678 Tablet(s) TAKE ONE TABLET BY MOUTH EVERY 8 HOURS NEEDED FOR ANXIETY 06/18/2018 08/15/2018 Inactive Ambien 10 mg tablet RxNorm: 231789 1 Tablet(s) PO HS PRN TAKE ONE TABLET BY MOUTH AT BEDTIME NEEDED 05/20/2018 07/18/2018 Inactive topiramate 25 mg tablet RxNorm: 942994 TAKE ONE TABLET BY MOUTH TWICE DAILY 04/21/2018 No Stop Date Active Xanax 0.5 mg tablet RxNorm: 820569 1 Tablet(s) PO Q8 as needed anxiety 03/24/2018 06/17/2018 Inactive Ambien 10 mg tablet RxNorm: 407621 1 Tablet(s) PO HS PRN TAKE ONE TABLET BY MOUTH AT BEDTIME NEEDED 02/22/2018 05/19/2018 Inactive naproxen 500 mg tablet RxNorm: 317830 1 Tablet(s) PO BID 02/22/2018 02/26/2018 Inactive Ambien 10 mg tablet RxNorm: 129752 TAKE ONE TABLET BY MOUTH AT BEDTIME NEEDED 02/19/2018 07/28/2018 Inactive Dexilant 60 mg capsule, delayed release RxNorm: 494135 1 Capsule(s) PO daily 01/21/2018 No Stop Date Active Xanax 0.5 mg tablet RxNorm: 323378 Tablet(s) TAKE ONE TABLET BY MOUTH EVERY 8 HOURS NEEDED FOR ANXIETY 01/19/2018 03/17/2018 Inactive Lexapro 10 mg tablet RxNorm: 117387 TAKE ONE TABLET BY MOUTH IN THE EVENING 01/18/2018 07/26/2018 Inactive Xanax 0.5 mg tablet RxNorm: 644089 1 Tablet(s) PO Q8 PRN TAKE ONE TABLET BY MOUTH EVERY 8 HOURS NEEDED FOR ANXIETY 12/17/2017 01/14/2018 Inactive topiramate 25 mg tablet RxNorm: 715094 TAKE ONE TABLET BY MOUTH TWICE DAILY 10/13/2017 04/20/2018 Inactive K-Dur 10 mEq tablet,extended release RxNorm: 767768 1 Tablet(s) PO daily 09/11/2017 09/11/2017 Inactive potassium chloride ER 10 mEq tablet,extended release RxNorm: 022809 1 Tablet(s) PO daily 09/11/2017 09/10/2017 Inactive Lasix 20 mg tablet RxNorm: 661356 1 Tablet(s) PO daily for three days 09/11/2017 09/10/2017 Inactive potassium chloride ER 10 mEq tablet,extended release RxNorm: 435353 1 Tablet(s) PO daily 09/11/2017 09/13/2017 Inactive Lasix 20 mg tablet RxNorm: 1 Tablet(s) PO daily for three days 09/11/2017 09/13/2017 Inactive naproxen 500 mg tablet RxNorm: 077388 1 Tablet(s) PO BID 09/01/2017 09/05/2017 Inactive Ambien 10 mg tablet RxNorm: 769016 1 Tablet(s) PO HS PRN TAKE ONE TABLET BY MOUTH AT BEDTIME NEEDED 08/14/2017 02/22/2018 Inactive Xanax 0.5 mg tablet RxNorm: 939338 1 Tablet(s) PO Q8 PRN TAKE ONE TABLET BY MOUTH EVERY 8 HOURS NEEDED FOR ANXIETY 08/14/2017 01/18/2018 Inactive Lexapro 10 mg tablet RxNorm: 705599 TAKE ONE TABLET BY MOUTH IN THE EVENING 07/13/2017 01/08/2018 Inactive Xanax 0.5 mg tablet RxNorm: 528624 1 Tablet(s) PO Q8 PRN TAKE ONE TABLET BY MOUTH EVERY 8 HOURS NEEDED FOR ANXIETY 06/18/2017 07/16/2017 Inactive Xanax 0.25 mg tablet RxNorm: 091250 Tablet(s) TAKE ONE TABLET BY MOUTH EVERY 8 HOURS NEEDED FOR ANXIETY 06/17/2017 06/17/2017 Inactive Ambien 10 mg tablet RxNorm: 343572 1 Tablet(s) PO QHS as needed insomnia 06/17/2017 08/17/2017 Inactive topiramate 25 mg tablet RxNorm: 544018 TAKE ONE TABLET BY MOUTH TWICE DAILY 06/16/2017 10/12/2017 Inactive Lexapro 10 mg tablet RxNorm: 003221 TAKE ONE TABLET BY MOUTH IN THE EVENING 04/17/2017 07/12/2017 Inactive Ambien 10 mg tablet RxNorm: 607983 1 Tablet(s) PO QHS as needed insomnia 04/17/2017 01/18/2018 Inactive Xanax 0.25 mg tablet RxNorm: 839570 Tablet(s) TAKE ONE TABLET BY MOUTH EVERY 8 HOURS NEEDED FOR ANXIETY 04/17/2017 06/13/2017 Inactive topiramate 25 mg tablet RxNorm: 738524 TAKE ONE TABLET BY MOUTH TWICE DAILY 03/20/2017 06/15/2017 Inactive Flagyl 500 mg tablet RxNorm: 150334 1 Tablet(s) PO TID do not drink alcohol when taking this medication 02/05/2017 02/09/2017 Inactive Ambien 10 mg tablet RxNorm: 959458 1 Tablet(s) PO QHS as needed insomnia 01/23/2017 04/21/2017 Inactive Xanax 0.25 mg tablet RxNorm: 752590 TAKE ONE TABLET BY MOUTH EVERY 8 HOURS NEEDED FOR ANXIETY 01/23/2017 04/21/2017 Inactive Xanax 0.25 mg tablet RxNorm: 877997 1 Tablet(s) PO TAKE ONE TABLET BY MOUTH EVERY 8 HOURS NEEDED FOR ANXIETY 11/28/2016 01/18/2018 Inactive Lexapro 10 mg tablet RxNorm: 707395 1 Tablet(s) PO QPM 11/20/2016 04/16/2017 Inactive topiramate 25 mg tablet RxNorm: 361294 1 Tablet(s) PO BID start one pill at hs, if migraines not improving, then increase to bid 11/20/2016 01/18/2018 Inactive Ambien 10 mg tablet RxNorm: 274500 1 Tablet(s) PO QHS as needed TAKE ONE TABLET BY MOUTH AT BEDTIME NEEDED FOR INSOMNIA 10/31/2016 01/18/2018 Inactive acyclovir 400 mg tablet RxNorm: 079154 1 Tablet(s) PO TID 10/01/2016 10/05/2016 Inactive acyclovir 400 mg tablet RxNorm: 252705 1 Tablet(s) PO TID 10/01/2016 09/30/2016 Inactive phentermine 37.5 mg tablet RxNorm: 884399 1 Tablet(s) PO daily 09/26/2016 02/04/2017 Inactive Xanax 0.25 mg tablet RxNorm: 966883 Tablet(s) TAKE ONE TABLET BY MOUTH EVERY 8 HOURS NEEDED FOR ANXIETY 08/25/2016 01/18/2018 Inactive Ambien 10 mg tablet RxNorm: 400834 1 Tablet(s) PO daily as needed TAKE ONE TABLET BY MOUTH AT BEDTIME NEEDED FOR INSOMNIA 08/25/2016 11/19/2016 Inactive phentermine 37.5 mg tablet RxNorm: 779412 1 Tablet(s) PO daily 08/25/2016 09/25/2016 Inactive topiramate 25 mg tablet RxNorm: 720596 TAKE ONE TABLET BY MOUTH TWICE DAILY 07/09/2016 08/24/2016 Inactive Xanax 0.25 mg tablet RxNorm: 776087 Tablet(s) TAKE ONE TABLET BY MOUTH EVERY 8 HOURS NEEDED FOR ANXIETY 04/28/2016 06/25/2016 Inactive Ambien 10 mg tablet RxNorm: 834444 1 Tablet(s) PO daily as needed TAKE ONE TABLET BY MOUTH AT BEDTIME NEEDED FOR INSOMNIA 04/28/2016 06/24/2016 Inactive topiramate 25 mg tablet RxNorm: 899569 1 Tablet(s) PO BID 02/20/2016 06/18/2016 Inactive Ambien 10 mg tablet RxNorm: 541735 1 Tablet(s) PO daily as needed TAKE ONE TABLET BY MOUTH AT BEDTIME NEEDED FOR INSOMNIA 01/03/2016 03/31/2016 Inactive (Response to an electronic controlled substance refill request - RxReferenceNumber: [id number]) Xanax 0.25 mg tablet RxNorm: 174132 Tablet(s) TAKE ONE TABLET BY MOUTH EVERY 8 HOURS NEEDED FOR ANXIETY 01/03/2016 01/18/2018 Inactive (Response to an electronic controlled substance refill request - RxReferenceNumber: [id number]) meclizine 25 mg tablet RxNorm: 614902 1 Tablet(s) PO QID 12/13/2015 01/11/2016 Inactive Xanax 0.25 mg tablet RxNorm: 249004 Tablet(s) TAKE ONE TABLET BY MOUTH EVERY 8 HOURS NEEDED FOR ANXIETY 11/23/2015 01/18/2018 Inactive (Response to an electronic controlled substance refill request - RxReferenceNumber: [id number]) topiramate 25 mg tablet RxNorm: 951817 1 Tablet(s) PO BID 11/02/2015 12/12/2015 Inactive pt needs to make an appt Ambien 10 mg tablet RxNorm: 718252 1 Tablet(s) PO daily as needed TAKE ONE TABLET BY MOUTH AT BEDTIME NEEDED FOR INSOMNIA 10/30/2015 11/19/2016 Inactive (Response to an electronic controlled substance refill request - RxReferenceNumber: [id number]) Xanax 0.25 mg tablet RxNorm: 530330 Tablet(s) TAKE ONE TABLET BY MOUTH EVERY 8 HOURS NEEDED FOR ANXIETY 09/20/2015 10/18/2015 Inactive (Response to an electronic controlled substance refill request - RxReferenceNumber: [id number]) Xanax 0.25 mg tablet RxNorm: 132235 Tablet(s) TAKE ONE TABLET BY MOUTH EVERY 8 HOURS NEEDED FOR ANXIETY 06/28/2015 08/25/2015 Inactive (Response to an electronic controlled substance refill request - RxReferenceNumber: [id number]) topiramate 25 mg tablet RxNorm: 105392 1 Tablet(s) PO BID 06/27/2015 10/24/2015 Inactive Ambien 10 mg tablet RxNorm: 088170 1 Tablet(s) PO daily as needed TAKE ONE TABLET BY MOUTH AT BEDTIME NEEDED FOR INSOMNIA 06/26/2015 09/23/2015 Inactive (Response to an electronic controlled substance refill request - RxReferenceNumber: [id number]) Xanax 0.25 mg tablet RxNorm: 033996 Tablet(s) TAKE ONE TABLET BY MOUTH EVERY 8 HOURS NEEDED FOR ANXIETY 04/04/2015 06/02/2015 Inactive (Response to an electronic controlled substance refill request - RxReferenceNumber: [id number]) Ambien 10 mg tablet RxNorm: 272167 1 Tablet(s) PO daily as needed TAKE ONE TABLET BY MOUTH AT BEDTIME NEEDED FOR INSOMNIA 02/16/2015 05/16/2015 Inactive (Response to an electronic controlled substance refill request - RxReferenceNumber: [id number]) Ambien 10 mg tablet RxNorm: 471705 TAKE ONE TABLET BY MOUTH AT BEDTIME NEEDED FOR INSOMNIA 01/11/2015 02/09/2015 Inactive (Response to an electronic controlled substance refill request - RxReferenceNumber: [id number]) Ambien 10 mg tablet RxNorm: 905566 1 Tablet(s) PO QHS as needed TAKE ONE TABLET BY MOUTH AT BEDTIME NEEDED 01/11/2015 01/11/2015 Inactive (Appended: Controlled substance eRx refill - RxReferenceNumber: [id number]) topiramate 25 mg tablet RxNorm: 239570 1 Tablet(s) PO BID 01/11/2015 05/10/2015 Inactive Xanax 0.25 mg tablet RxNorm: 485793 TAKE ONE TABLET BY MOUTH EVERY 8 HOURS NEEDED FOR ANXIETY 01/11/2015 02/09/2015 Inactive (Response to an electronic controlled substance refill request - RxReferenceNumber: [id number]) Xanax 0.25 mg tablet RxNorm: 697292 Tablet(s) TAKE ONE TABLET BY MOUTH EVERY 8 HOURS NEEDED FOR ANXIETY 01/11/2015 01/11/2015 Inactive (Response to an electronic controlled substance refill request - RxReferenceNumber: [id number]) Xanax 0.25 mg tablet RxNorm: 847182 Tablet(s) TAKE ONE TABLET BY MOUTH EVERY 8 HOURS NEEDED FOR ANXIETY 11/20/2014 12/17/2014 Inactive (Response to an electronic controlled substance refill request - RxReferenceNumber: [id number]) Xanax 0.25 mg tablet RxNorm: 077701 TAKE ONE TABLET BY MOUTH EVERY 8 HOURS NEEDED FOR ANXIETY 09/14/2014 10/13/2014 Inactive (Response to an electronic controlled substance refill request - RxReferenceNumber: [id number]) Xanax 0.25 mg tablet RxNorm: 166850 Tablet(s) PO TAKE ONE TABLET BY MOUTH EVERY 8 HOURS NEEDED FOR ANXIETY 09/12/2014 09/15/2014 Inactive (Appended: Controlled substance eRx refill - RxReferenceNumber: [id number]) Xanax 0.25 mg tablet RxNorm: 488731 TAKE ONE TABLET BY MOUTH EVERY 8 HOURS NEEDED FOR ANXIETY 07/31/2014 07/31/2014 Inactive (Response to an electronic controlled substance refill request - RxReferenceNumber: [id number]) Ambien 10 mg tablet RxNorm: 230101 TAKE ONE TABLET BY MOUTH AT BEDTIME NEEDED FOR INSOMNIA 07/31/2014 11/19/2016 Inactive (Response to an electronic controlled substance refill request - RxReferenceNumber: [id number]) Xanax 0.25 mg tablet RxNorm: 440581 TAKE ONE TABLET BY MOUTH EVERY 8 HOURS NEEDED FOR ANXIETY 07/31/2014 08/29/2014 Inactive (Response to an electronic controlled substance refill request - RxReferenceNumber: [id number]) metronidazole 500 mg tablet RxNorm: 632031 1 Tablet(s) PO TID 05/25/2014 05/31/2014 Inactive Diflucan 150 mg tablet RxNorm: 743859 1 Tablet(s) PO daily 05/25/2014 05/29/2014 Inactive topiramate 25 mg tablet RxNorm: 724199 1 Tablet(s) PO BID 04/24/2014 11/19/2014 Inactive Xanax 0.25 mg tablet RxNorm: 183331 Tablet(s) PO TAKE ONE TABLET BY MOUTH EVERY 8 HOURS NEEDED FOR ANXIETY 01/17/2014 07/31/2014 Inactive (Appended: Controlled substance eRx refill - RxReferenceNumber: [id number]) Xanax 0.25 mg tablet RxNorm: 357635 Tablet(s) PO TAKE ONE TABLET BY MOUTH EVERY 8 HOURS NEEDED FOR ANXIETY 01/16/2014 01/17/2014 Inactive (Appended: Controlled substance eRx refill - RxReferenceNumber: [id number]) Xanax 0.25 mg tablet RxNorm: 803961 Tablet(s) PO TAKE ONE TABLET BY MOUTH EVERY 8 HOURS NEEDED FOR ANXIETY 01/13/2014 09/11/2014 Inactive (Appended: Controlled substance eRx refill - RxReferenceNumber: [id number]) Xanax 0.25 mg tablet RxNorm: 309472 Tablet(s) PO TAKE ONE TABLET BY MOUTH EVERY 8 HOURS NEEDED FOR ANXIETY 11/21/2013 01/16/2014 Inactive (Appended: Controlled substance eRx refill - RxReferenceNumber: [id number]) Xanax 0.25 mg tablet RxNorm: 475158 Tablet(s) PO TAKE ONE TABLET BY MOUTH EVERY 8 HOURS NEEDED FOR ANXIETY 11/18/2013 01/15/2014 Inactive (Appended: Controlled substance eRx refill - RxReferenceNumber: [id number]) Ambien 10 mg tablet RxNorm: 231804 Tablet(s) PO TAKE ONE TABLET BY MOUTH EVERY DAY AT BEDTIME NEEDED 08/31/2013 07/31/2014 Inactive (Appended: Controlled substance eRx refill - RxReferenceNumber: [id number]) Ambien 10 mg tablet RxNorm: 050101 Tablet(s) PO TAKE ONE TABLET BY MOUTH EVERY DAY AT BEDTIME NEEDED 08/31/2013 08/30/2013 Inactive (Appended: Controlled substance eRx refill - RxReferenceNumber: [id number]) Xanax 0.25 mg tablet RxNorm: 303852 Tablet(s) PO TAKE ONE TABLET BY MOUTH EVERY 8 HOURS NEEDED FOR ANXIETY 07/21/2013 11/21/2013 Inactive (Appended: Controlled substance eRx refill - RxReferenceNumber: [id number]) Xanax 0.25 mg tablet RxNorm: 858024 Tablet(s) PO TAKE ONE TABLET BY MOUTH EVERY 8 HOURS NEEDED FOR ANXIETY 07/19/2013 07/21/2013 Inactive (Appended: Controlled substance eRx refill - RxReferenceNumber: [id number]) omeprazole 20 mg capsule,delayed release RxNorm: 182148 Capsule(s) PO TAKE ONE CAPSULE BY MOUTH EVERY DAY 05/23/2013 04/23/2014 Inactive Flagyl 500 mg tablet RxNorm: 559055 1 Tablet(s) PO BID 02/21/2013 02/20/2013 Inactive Flagyl 500 mg tablet RxNorm: 558547 1 Tablet(s) PO BID 02/21/2013 02/27/2013 Inactive fluconazole 150 mg tablet RxNorm: 216221 1 Tablet(s) PO PRN one pill as needed for yeast infection symptoms 02/14/2013 04/23/2014 Inactive Xanax 0.25 mg tablet RxNorm: 827208 Tablet(s) PO TAKE ONE TABLET BY MOUTH EVERY 8 HOURS NEEDED FOR ANXIETY 02/03/2013 11/20/2013 Inactive (Appended: Controlled substance eRx refill - RxReferenceNumber: [id number]) Ambien 10 mg tablet RxNorm: 114677 Tablet(s) PO TAKE ONE TABLET BY MOUTH AT BEDTIME NEEDED 02/03/2013 08/31/2013 Inactive (Appended: Controlled substance eRx refill - RxReferenceNumber: [id number]) Ambien 10 mg tablet RxNorm: 696885 Tablet(s) PO TAKE ONE TABLET BY MOUTH AT BEDTIME NEEDED 02/03/2013 01/10/2015 Inactive (Appended: Controlled substance eRx refill - RxReferenceNumber: [id number]) Xanax 0.25 mg tablet RxNorm: 517123 Tablet(s) PO 02/03/2013 07/20/2013 Inactive TAKE ONE TABLET BY MOUTH EVERY 8 HOURS NEEDED FOR ANXIETY (Appended: Controlled substance eRx refill - RxReferenceNumber: [id number]) Xanax 0.25 mg tablet RxNorm: 831089 Tablet(s) PO TAKE ONE TABLET BY MOUTH EVERY 8 HOURS NEEDED FOR ANXIETY 12/08/2012 02/03/2013 Inactive (Appended: Controlled substance eRx refill - RxReferenceNumber: [id number]) Ambien 10 mg tablet RxNorm: 623268 Tablet(s) PO TAKE ONE TABLET BY MOUTH AT BEDTIME NEEDED 12/08/2012 02/02/2013 Inactive (Appended: Controlled substance eRx refill - RxReferenceNumber: [id number]) Xanax 0.25 mg tablet RxNorm: 647969 Tablet(s) PO TAKE ONE TABLET BY MOUTH EVERY 8 HOURS NEEDED FOR ANXIETY 12/08/2012 12/07/2012 Inactive (Appended: Controlled substance eRx refill - RxReferenceNumber: [id number]) Ambien 10 mg tablet RxNorm: 430775 Tablet(s) PO TAKE ONE TABLET BY MOUTH AT BEDTIME NEEDED 12/08/2012 02/03/2013 Inactive (Appended: Controlled substance eRx refill - RxReferenceNumber: [id number]) Ambien 10 mg tablet RxNorm: 621979 Tablet(s) PO 08/27/2012 12/08/2012 Inactive TAKE ONE TABLET BY MOUTH AT BEDTIME NEEDED (Appended: Controlled substance eRx refill - RxReferenceNumber: [id number]) Xanax 0.25 mg tablet RxNorm: 540448 Tablet(s) PO 08/24/2012 02/02/2013 Inactive TAKE ONE TABLET BY MOUTH EVERY 8 HOURS NEEDED FOR ANXIETY (Appended: Controlled substance eRx refill - RxReferenceNumber: [id number]) Ambien 10 mg tablet RxNorm: 201630 Tablet(s) PO 08/24/2012 08/27/2012 Inactive TAKE ONE TABLET BY MOUTH AT BEDTIME NEEDED (Appended: Controlled substance eRx refill - RxReferenceNumber: [id number]) Xanax 0.25 mg tablet RxNorm: 689474 Tablet(s) PO 08/24/2012 12/08/2012 Inactive TAKE ONE TABLET BY MOUTH EVERY 8 HOURS NEEDED FOR ANXIETY (Appended: Controlled substance eRx refill - RxReferenceNumber: [id number]) Xanax 0.25 mg tablet RxNorm: 772349 1 Tablet(s) PO Q8 PRN 07/09/2012 08/24/2012 Inactive omeprazole 20 mg capsule,delayed release RxNorm: 572227 1 Capsule(s) PO daily 05/19/2012 12/14/2012 Inactive Ambien 10 mg tablet RxNorm: 406373 1 Tablet(s) PO QHS 05/19/2012 08/24/2012 Inactive Xanax 0.25 mg tablet RxNorm: 649734 1 Tablet(s) PO Q8 PRN 03/16/2012 06/13/2012 Inactive Diflucan 150 mg Tab RxNorm: 510328 1 Tablet(s) PO daily 01/05/2012 01/14/2012 Inactive Ambien 10 mg tablet RxNorm: 441376 1 Tablet(s) PO QHS 01/02/2012 04/30/2012 Inactive Ambien 10 mg Tab RxNorm: 183385 1 Tablet(s) PO QHS 12/24/2011 01/01/2012 Inactive Rocephin 500 mg Solution for Injection RxNorm: 714406 1 Milliliter(s) Inj 11/13/2011 11/13/2011 Inactive omeprazole 20 mg capsule,delayed release RxNorm: 700146 1 Capsule(s) PO daily 10/07/2011 05/18/2012 Inactive omeprazole 20 mg Cap, Delayed Release RxNorm: 980575 1 Capsule(s) PO daily 10/07/2011 04/03/2012 Inactive Ambien 5 mg Tab RxNorm: 345921 1 Tablet(s) PO QHS 1 tab q hs prn insomnia 10/07/2011 12/23/2011 Inactive Xanax 0.25 mg Tab RxNorm: 793156 1 Tablet(s) PO Q8 PRN 09/29/2011 03/15/2012 Inactive Medication Administered Medication Codes Instructions Start Date Status Rocephin 500 mg Solution for Injection RxNorm: 381076 1Milliliter 11/13/2011 No longer Active Immunizations Vaccine [...] Item Item Code Result Date GC/CHL PRB 6352234 CHLM PROBE NEG 04/26/2014 GC/CHL PRB 8844874 GC PROBE NEG 04/26/2014 TSH 5519740 TSH 2.977 uIU/ML 02/16/2013 GC/CHL PRB 0919812 SOURCE KIMBERLYN UNKNOWN 02/15/2013 GC/CHL PRB 6887824 CHLM PROBE NEG 02/15/2013 GC/CHL PRB 9252066 GC PROBE NEG 02/15/2013 CHEM 14 2579162 AST 12 U/L 02/15/2013 CHEM 14 6949399 ALT 16 IU/L 02/15/2013 CHEM 14 6534692 BUN 13 MG/DL 02/15/2013 CHEM 14 0095234 ALBUMIN 4.6 GM/DL 02/15/2013 CHEM 14 8491122 CHLORIDE 104 MMOL/L 02/15/2013 CHEM 14 6561423 BILI TOT 0.5 MG/DL 02/15/2013 CHEM 14 1773507 ALK PHOS 55 U/L 02/15/2013 CHEM 14 1501485 SODIUM 137 MMOL/L 02/15/2013 CHEM 14 9958319 CREATININE 0.79 MG/DL 02/15/2013 CHEM 14 5407757 CALCIUM 9.3 MG/DL 02/15/2013 CHEM 14 8579292 POTASSIUM 4.0 MMOL/L 02/15/2013 CHEM 14 4971884 PROT TOT 6.9 GM/DL 02/15/2013 CHEM 14 3629427 GLUCOSE 99 MG/DL 02/15/2013 CHEM 14 6492218 BICARB 29 MMOL/L 02/15/2013 CHEM 14 4943302 ANION GAP 4 MEQ/L 02/15/2013 GFR CALC 6426819 GFR AA >60 ML/MIN 02/15/2013 GFR CALC 6815469 GFR NON-AA >60 ML/MIN 02/15/2013 LIPID GRP HDL TEST 38 MG/DL 02/15/2013 LIPID GRP TRIG 126 MG/DL 02/15/2013 LIPID GRP 6741666 TEST LDL 112 MG/DL 02/15/2013 LIPID GRP CHOL 175 MG/DL 02/15/2013 LIPID GRP RCHOL/HDL 4.61 RATIO 02/15/2013 CBC 1651929 WBC 5.8 10e9/L 02/15/2013 CBC 7761414 RBC 4.51 10e12/L 02/15/2013 CBC 1139259 HGB 13.8 g/dL 02/15/2013 CBC 0074730 HCT DET 39.0 % 02/15/2013 CBC 5670471 MCV 86.5 fL 02/15/2013 CBC 4426637 MCH 30.6 pg 02/15/2013 CBC 1910990 MCHC 35.4 g/dL 02/15/2013 CBC 5551600 PLT 284 10e9/L 02/15/2013 CBC 0177552 MPV 10.3 fL 02/15/2013 CBC 7711119 BLANQUITA % 62.9 % 02/15/2013 CBC 3085739 LY % 26.8 % 02/15/2013 CBC 0141018 MON % 9.1 % 02/15/2013 CBC 6491493 EOS % 1.2 % 02/15/2013 CBC 0179227 BASO % 0.0 % 02/15/2013 CBC 1980921 RDW 14.4 % 02/15/2013 CBC 8107050 ABS BLANQUITA 3.65 10e9/L 02/15/2013 CBC 9366335 ABS LYMPH 1.55 10e9/L 02/15/2013 CBC 0028923 ABS MONO 0.53 10e9/L 02/15/2013 CBC 7479247 ABS EOS 0.07 10e9/L 02/15/2013 CBC 0651518 ABS BASO 0.00 10e9/L 02/15/2013 CBC 9989603 RDW-SD 44.0 fL 02/15/2013 Review of Systems [...] PROBE (CHYLMD TRACH DNA AMP PROBE) CPT-4: 60114 04/24/2014 GC PROBE (N.GONORRHOEAE DNA AMP PROB) CPT-4: 17329 04/24/2014 ROUTINE VENIPUNCTURE CPT- 4: 21674 02/15/2013 PREV VISIT EST AGE 40-64 CPT-4: 93536 01/05/2012 ROCEPHIN, PER 250 MG CPT- 4: J0696 11/13/2011 THER/PROPH/DIAG INJ SC/IM CPT-4: 76443 11/13/2011 REMOVE IMPACTED EAR WAX UNI CPT-4: 32769 11/13/2011 Vital Signs Date Vital 02/22/2018 Blood Pressure 1: 132/70 Code: 8480-6 BMI: 33.1 Code: 74428-1 Heart Rate 1: 75 bpm Height: 5'8" SpO2: 97% Weight: 218 lbs 01/21/2018 Blood Pressure 1: 122/78 Code: 8480-6 Heart Rate 1: 73 bpm Height: 5'8" SpO2: 98% Weight: 09/01/2017 Blood Pressure 1: 134/82 Code: 8480-6 Heart Rate 1: 80 bpm Height: SpO2: 98% Weight: 06/18/2017 Blood Pressure 1: 122/76 Code: 8480-6 BMI: 30.7 Code: 26641-9 Heart Rate 1: 78 bpm Height: 5'8" SpO2: 98% Weight: 202 lbs 02/19/2017 Blood Pressure 1: 132/70 Code: 8480-6 BMI: 30.1 Code: 34514-4 Heart Rate 1: 72 bpm Height: 5'8" SpO2: 98% Weight: 198 lbs 02/05/2017 Blood Pressure 1: 124/84 Code: 8480-6 BMI: 29.3 Code: 10532-2 Heart Rate 1: 98 bpm Height: 5'8" SpO2: 98% Weight: 193 lbs 11/20/2016 Blood Pressure 1: 130/86 Code: 8480-6 BMI: 30.0 Code: 68145-4 Heart Rate 1: 90 bpm Height: 5'8" SpO2: 99% Weight: 197 lbs 09/26/2016 Blood Pressure 1: 124/84 Code: 8480-6 Heart Rate 1: 74 bpm SpO2: 97% Weight: 203 lbs 08/25/2016 Blood Pressure 1: 124/86 Code: 8480-6 BMI: 31.0 Code: 56608-8 Heart Rate 1: 90 bpm Height: 5'8" SpO2: 95% Weight: 204 lbs 12/13/2015 Blood Pressure 1: 112/80 Code: 8480-6 BMI: 31.5 Code: 91866-3 Heart Rate 1: 87 bpm Height: 5'8" SpO2: 97% Weight: 207 lbs 11/15/2015 Blood Pressure 1: 146/78 Code: 8480-6 BMI: 32.1 Code: 73289-8 Heart Rate 1: 96 bpm Height: 5'8" SpO2: 97% Weight: 211 lbs 06/28/2015 Blood Pressure 1: 132/64 Code: 8480-6 BMI: 29.5 Code: 73061-4 Heart Rate 1: 91 bpm Height: 5'8" SpO2: 98% Weight: 194 lbs 05/23/2014 Blood Pressure 1: 124/80 Code: 8480-6 BMI: 30.3 Code: 29930-3 Heart Rate 1: 68 bpm Height: 5'8" Weight: 199 lbs 04/24/2014 Blood Pressure 1: 132/72 Code: 8480-6 BMI: 30.7 Code: 26205-2 Heart Rate 1: 82 bpm Height: 5'8" SpO2: 98% Weight: 202 lbs 02/14/2013 Blood Pressure 1: 122/80 Code: 8480-6 BMI: 28.6 Code: 54533-5 Heart Rate 1: 84 bpm Height: 5'8" Respiratory Rate: 16 bpm Weight: 188 lbs 02/16/2012 Blood Pressure 1: 104/66 Code: 8480-6 BMI: 28.5 Code: 59648-7 Heart Rate 1: 76 bpm Height: 5'7" Weight: 182 lbs 01/05/2012 Blood Pressure 1: 100/64 Code: 8480-6 BMI: 28.7 Code: 32760-8 Heart Rate 1: 78 bpm Height: 5'7" Respiratory Rate: 16 bpm Weight: 183 lbs 11/13/2011 Blood Pressure 1: 116/78 Code: 8480-6 Heart Rate 1: 84 bpm Respiratory Rate: 16 bpm SpO2: 98% Temperature: 36.7 (C) / 98.1 (F) Weight: 181 lbs 09/29/2011 Blood Pressure 1: 118/82 Code: 8480-6 BMI: 36.8 Code: 93246-2 Heart Rate 1: 72 bpm Height: 4'10" [...] the day. 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 PATIENT, LEVEL III Diagnosis: Excessive and frequent menstruation with regular cycle[ICD10: N92.0] Maylin Jain MD, [facility] CPT-4: 50166 02/22/2018 ([id number]) 90895 EST. PATIENT, LEVEL III Diagnosis: Gastro-esophageal reflux disease with esophagitis[ICD10: K21.0] Unique Jain MD, [facility] CPT-4: 10795 01/21/2018 62438 EST. PATIENT, LEVEL III Diagnosis: Pain in left leg[ICD10: M79.605] Maylin Jain MD, [facility] CPT-4: 89259 09/01/2017 ([id number]) 37173 EST. PATIENT, LEVEL III Diagnosis: Generalized anxiety disorder[ICD10: F41.1] Unique Jain MD, [facility] CPT-4: 65070 06/18/2017 02490 EST. PATIENT, LEVEL IV Diagnosis: Pain in left shoulder[ICD10: M25.512] Diagnosis: Pain in right shoulder[ICD10: M25.511] Maylin Jain MD, [facility] CPT- 4: 84831 02/19/2017 ([id number]) PREV VISIT EST AGE 40-64 Diagnosis: Encounter for gynecological examination (general) (routine) without abnormal findings[ICD10: Z01.419] Bianca Jain MD, [facility] CPT-4: 45670 02/05/2017 ([id number]) 27999 EST. PATIENT, LEVEL III Diagnosis: Generalized anxiety disorder[ICD10: F41.1] Diagnosis: Other obesity due to excess calories[ICD10: E66.09] Bianca Jain MD, [facility] CPT-4: 68692 11/20/2016 ([id number]) Miscellaneous no charge Diagnosis: Other obesity due to excess calories[ICD10: E66.09] Maylin Jain MD, [facility] CPT-4: 53395 09/26/2016 ([id number]) 05489 EST. PATIENT, LEVEL IV Diagnosis: Generalized anxiety disorder[ICD10: F41.1] Diagnosis: Adjustment insomnia[ICD10: F51.02] Diagnosis: Other obesity due to excess calories[ICD10: E66.09] Unique Jain MD, [facility] CPT-4: 26610 08/25/2016 [id number] EST. PATIENT, LEVEL IV Diagnosis: Dizziness and giddiness[ICD10: R42] Maylin Jain MD, [facility] CPT- 4: 49574 12/13/2015 [id number] EST. PATIENT, LEVEL IV Diagnosis: Dizziness and giddiness[ICD10: R42] Diagnosis: Other chest pain[ICD10: R07.89] Maylin Jain MD, [facility] CPT-4: 55651 11/15/2015 ([id number]) 94214 EST. PATIENT, LEVEL III Diagnosis: GENERALIZED ANXIETY DISEASE[ICD9: 300.02] Diagnosis: Migraines[ICD9: 346.90] Unique Jain MD, [facility] CPT-4: 58707 06/28/2015 ([id number]) 11540 EST. PATIENT, LEVEL III Diagnosis: Right ankle pain[ICD9: 719.47] Diagnosis: Right ankle sprain[ICD9: 845.00] Unique Jain MD, [facility] CPT- 4: 58574 05/23/2014 ([id number]) PREV VISIT EST AGE 40-64 Diagnosis: ROUTINE GYNE EXAM[ICD9: V72.31] Diagnosis: Laboratory exam ordered as part of routine general medical examination[ICD9: V72.62] Bianca Jain MD, [facility] CPT-4: 32598 04/24/2014 ([id number]) PREV VISIT EST AGE 40-64 Diagnosis: Well woman exam with routine gynecological exam[ICD9: V72.31] Bianca Jain MD, [facility] CPT-4: 62630 02/14/2013 72031 EST. PATIENT, LEVEL IV Diagnosis: Numbness in both legs[ICD9: 782.0] Diagnosis: Myalgia[ICD9: 729.1] [facility] CPT-4: 08495 02/16/2012 ([id number]) 65359 EST. PATIENT, LEVEL IV Diagnosis: Acute maxillary sinusitis[ICD9: 461.0] Diagnosis: Cough[ICD9: 786.2] Diagnosis: Cerumen impaction[ICD9: 380.4] [facility] CPT-4: 96357 11/13/2011 ([id number]) OFFICE VISIT, NEW - LEVEL 3 Diagnosis: GENERALIZED ANXIETY DISEASE[ICD9: 300.02] Diagnosis: DEPRESSIVE DISORDER NEC[ICD9: 311] Diagnosis: Impacted cerumen[ICD9: 380.4] Diagnosis: HEARING LOSS[ICD9: 389.9] [facility] CPT-4: 98867 09/29/2011 Plan of Care Planned Activity Notes Codes Status Date Care Plan: Cbc With Differential Cancelled 02/23/2018 Care Plan: Bhcg Qual Cancelled 02/23/2018 Care Plan: Referral Order SNOMED-CT : [id number] Pending 02/23/2018 Visit Plan: Excessive menstrual bleeding and irregular menstruation - pt would like to be referred to OB and would like to know about a possible hysterectomy - will refer - pt is to notify clinic if symptoms do not improve, if they worsen, or with any changes, questions, or concerns. 02/22/2018 Appointment: Maylin Chowdhury WPtel: [facility] [place] (15 min) Moderate 02/22/2018 Patient Education: [...] not improve. 09/01/2017 Appointment: Maylin Chowdhury WPtel: [facility] [place] (30 min) Complex 09/01/2017 Patient Education: Patient Medication Summary Completed 09/01/2017 Appointment: Bianca Jain WPtel[facility] [place] (15 min) Moderate 07/29/2017 Visit Plan: [...] not improve. 02/19/2017 Appointment: Maylin Chowdhury WPtel: [address] [place] [address] (15 min) Moderate 02/19/2017 Patient Education: Patient [...] PAP Pending 02/05/2017 Appointment: Bianca Jain WPtel: [address] [place] [address] [facility] 01/22/2017 Visit Plan: Obesity - chronic issue with this patient. The pt has been counseled about diet changes, calorie restriction, and need to exercise. Pt will RTC in one month for weight check. Anxiety - refill anxiolytic 11/20/2016 Appointment: Bianca Jain WPtel: [address] [place] [address] [facility] 11/20/2016 Patient Education: Patient Medication [...] situational exposure. No change in current medications. Fvgvoxai-hdjbpwdhhi-nqvtxe ambien for prn use Obesity - chronic [...] situational exposure. No change in current medications. Dkenrnzn-lfkzwivnza-ltcioa ambien for prn use Obesity - chronic issue with this patient. The pt has been counseled about diet changes, calorie restriction, and need to exercise. Pt will RTC in one month for weight check. 08/25/2016 Appointment: Unique Nichole WPtel: [address] [place], [place] [phone] (15 min) Moderate 08/25/2016 Patient Education: Patient [...] pt consult with Dr. Shun Harrison at [facility]. Migraine headaches - start on topamax. 04/24/2014 Appointment: Bianca Jain WPtel: [facility] [place] Pap Only 04/24/2014 Patient Education: Patient Medication Summary Completed 04/24/2014 Care Plan: PAP Pending 04/24/2014 Appointment: Unique Nichole WPtel: [phone] [place] Other 05/31/2013 Patient Education: Patient [...] Summary Completed 02/14/2013 Appointment: Bianca Jain WPtel: [address] [place], [place] [phone] [place] Pap Only 01/31/2013 Appointment: Unique Nichole WPtel: [address] [place], [place] [phone] Other 09/13/2012 Visit Plan: Numbness-bilateral lower xon-nflckiaa-wtkm to check labs including chem panel to evaluate electrolytes as well as blood sugar, cbc, and b12 level. Recommend patient start on a multivitamin daily and drink plenty of fluids. Will call patient with labs results. Instructed patient to call with any concerns or worsening symptoms. Patient verbalized understanding of plan. 02/16/2012 Appointment: Unique Nichole WPtel: [phone] [place] Other 02/16/2012 Patient Education: Patient Medication [...] skin cancer. 01/05/2012 Appointment: Bianca Jain WPtel: [facility]5 [facility] [place] Pap Only 01/05/2012 Patient Education: [...] not improved. 11/13/2011 Appointment: Bianca Jain WPtel: [facility] [address] Other 11/13/2011 Patient Education: Patient Medication Summary [...] removal process. 09/29/2011 Appointment: Bianca Jain WPtel: [address] [place], [place] [phone] New Patient 09/29/2011 Patient Education: Patient Medication Summary Completed 09/29/2011 Referral: Aaron Villavicencio: Referral Appointment Requested Referral: Aaron Villavicenciotel: Referral [...] situational exposure. No change in current medications. Uiflnbqd-aifdxqojqs-ozkbep ambien for prn use Obesity - chronic [...] situational exposure. No change in current medications. Vsocxzco-nyszhkmnkn-txzxmy ambien for prn use Obesity - chronic [...] symptoms worsen, or with any other concerns. [facility] shun harrison and saritha quick [...] pt consult with Dr. Shun Harrison at [facility]. Migraine headaches - start on topamax. Check labs-cbc, cmp, b12 level. . Numbness-bilateral lower oxv-wxipnwpq-vnch to check labs including chem panel to [...]
--- OUTSIDE RECORDS SUMMARY | 2019-03-03 07:06 | XMS REPORT | CCD ---
Author Author [facility] Organization [facility] Address [address] [place] [address] Phone Care Team Providers Care Podiatry Teacher Name Role Phone Bianca Jain PP Unavailable CCM Unavailable Summary Purpose Interface Exchange Insurance Providers Payer name Policy type / Coverage type Covered alliance party ID Effective Begin Date Effective End Date Converged Access [facility] ITelagen/BeLocal [id number] Unknown Family history Brother Diagnosis Age At [...] Effective Dates Employment Unknown Currently employed [employer] Registration 11/20/2016 Marital status Unknown 01/05/[address]: 521775147 Never smoker 09/29/[address]: 536490 Currently drinks alcohol 3 weekly 09/29/2011 Has [...] Fill Instructions Xanax 0.5 mg tablet RxNorm: 881782 Tablet(s) TAKE ONE TABLET BY MOUTH EVERY 8 HOURS NEEDED FOR ANXIETY 08/27/2018 10/25/2018 Active Ambien 10 mg tablet RxNorm: 021341 Tablet(s) TAKE ONE TABLET BY MOUTH AT BEDTIME NEEDED 07/29/2018 No Stop Date Active Lexapro 10 mg tablet RxNorm: 413973 TAKE 1 TABLET BY MOUTH IN THE EVENING 07/27/2018 No Stop Date Active Xanax 0.5 mg tablet RxNorm: 730228 1 Tablet(s) PO Q8 as needed anxiety 06/18/2018 09/15/2018 Active Xanax 0.5 mg tablet RxNorm: 115682 Tablet(s) TAKE ONE TABLET BY MOUTH EVERY 8 HOURS NEEDED FOR ANXIETY 06/18/2018 08/15/2018 Inactive Ambien 10 mg tablet RxNorm: 963080 1 Tablet(s) PO HS PRN TAKE ONE TABLET BY MOUTH AT BEDTIME NEEDED 05/20/2018 07/18/2018 Inactive topiramate 25 mg tablet RxNorm: 510931 TAKE ONE TABLET BY MOUTH TWICE DAILY 04/21/2018 No Stop Date Active Xanax 0.5 mg tablet RxNorm: 112145 1 Tablet(s) PO Q8 as needed anxiety 03/24/2018 06/17/2018 Inactive Ambien 10 mg tablet RxNorm: 868071 1 Tablet(s) PO HS PRN TAKE ONE TABLET BY MOUTH AT BEDTIME NEEDED 02/22/2018 05/19/2018 Inactive naproxen 500 mg tablet RxNorm: 302390 1 Tablet(s) PO BID 02/22/2018 02/26/2018 Inactive Ambien 10 mg tablet RxNorm: 416524 TAKE ONE TABLET BY MOUTH AT BEDTIME NEEDED 02/19/2018 07/28/2018 Inactive Dexilant 60 mg capsule, delayed release RxNorm: 490459 1 Capsule(s) PO daily 01/21/2018 No Stop Date Active Xanax 0.5 mg tablet RxNorm: 901134 Tablet(s) TAKE ONE TABLET BY MOUTH EVERY 8 HOURS NEEDED FOR ANXIETY 01/19/2018 03/17/2018 Inactive Lexapro 10 mg tablet RxNorm: 276536 TAKE ONE TABLET BY MOUTH IN THE EVENING 01/18/2018 07/26/2018 Inactive Xanax 0.5 mg tablet RxNorm: 540591 1 Tablet(s) PO Q8 PRN TAKE ONE TABLET BY MOUTH EVERY 8 HOURS NEEDED FOR ANXIETY 12/17/2017 01/14/2018 Inactive topiramate 25 mg tablet RxNorm: 807538 TAKE ONE TABLET BY MOUTH TWICE DAILY 10/13/2017 04/20/2018 Inactive K-Dur 10 mEq tablet,extended release RxNorm: 323712 1 Tablet(s) PO daily 09/11/2017 09/11/2017 Inactive potassium chloride ER 10 mEq tablet,extended release RxNorm: 647620 1 Tablet(s) PO daily 09/11/2017 09/10/2017 Inactive Lasix 20 mg tablet RxNorm: 447712 1 Tablet(s) PO daily for three days 09/11/2017 09/10/2017 Inactive potassium chloride ER 10 mEq tablet,extended release RxNorm: 814167 1 Tablet(s) PO daily 09/11/2017 09/13/2017 Inactive Lasix 20 mg tablet RxNorm: 1 Tablet(s) PO daily for three days 09/11/2017 09/13/2017 Inactive naproxen 500 mg tablet RxNorm: 948239 1 Tablet(s) PO BID 09/01/2017 09/05/2017 Inactive Ambien 10 mg tablet RxNorm: 034836 1 Tablet(s) PO HS PRN TAKE ONE TABLET BY MOUTH AT BEDTIME NEEDED 08/14/2017 02/22/2018 Inactive Xanax 0.5 mg tablet RxNorm: 283029 1 Tablet(s) PO Q8 PRN TAKE ONE TABLET BY MOUTH EVERY 8 HOURS NEEDED FOR ANXIETY 08/14/2017 01/18/2018 Inactive Lexapro 10 mg tablet RxNorm: 738565 TAKE ONE TABLET BY MOUTH IN THE EVENING 07/13/2017 01/08/2018 Inactive Xanax 0.5 mg tablet RxNorm: 523313 1 Tablet(s) PO Q8 PRN TAKE ONE TABLET BY MOUTH EVERY 8 HOURS NEEDED FOR ANXIETY 06/18/2017 07/16/2017 Inactive Xanax 0.25 mg tablet RxNorm: 576793 Tablet(s) TAKE ONE TABLET BY MOUTH EVERY 8 HOURS NEEDED FOR ANXIETY 06/17/2017 06/17/2017 Inactive Ambien 10 mg tablet RxNorm: 514704 1 Tablet(s) PO QHS as needed insomnia 06/17/2017 08/17/2017 Inactive topiramate 25 mg tablet RxNorm: 550744 TAKE ONE TABLET BY MOUTH TWICE DAILY 06/16/2017 10/12/2017 Inactive Lexapro 10 mg tablet RxNorm: 876879 TAKE ONE TABLET BY MOUTH IN THE EVENING 04/17/2017 07/12/2017 Inactive Ambien 10 mg tablet RxNorm: 527701 1 Tablet(s) PO QHS as needed insomnia 04/17/2017 01/18/2018 Inactive Xanax 0.25 mg tablet RxNorm: 636186 Tablet(s) TAKE ONE TABLET BY MOUTH EVERY 8 HOURS NEEDED FOR ANXIETY 04/17/2017 06/13/2017 Inactive topiramate 25 mg tablet RxNorm: 222714 TAKE ONE TABLET BY MOUTH TWICE DAILY 03/20/2017 06/15/2017 Inactive Flagyl 500 mg tablet RxNorm: 696730 1 Tablet(s) PO TID do not drink alcohol when taking this medication 02/05/2017 02/09/2017 Inactive Ambien 10 mg tablet RxNorm: 115951 1 Tablet(s) PO QHS as needed insomnia 01/23/2017 04/21/2017 Inactive Xanax 0.25 mg tablet RxNorm: 367387 TAKE ONE TABLET BY MOUTH EVERY 8 HOURS NEEDED FOR ANXIETY 01/23/2017 04/21/2017 Inactive Xanax 0.25 mg tablet RxNorm: 810737 1 Tablet(s) PO TAKE ONE TABLET BY MOUTH EVERY 8 HOURS NEEDED FOR ANXIETY 11/28/2016 01/18/2018 Inactive Lexapro 10 mg tablet RxNorm: 899721 1 Tablet(s) PO QPM 11/20/2016 04/16/2017 Inactive topiramate 25 mg tablet RxNorm: 120600 1 Tablet(s) PO BID start one pill at hs, if migraines not improving, then increase to bid 11/20/2016 01/18/2018 Inactive Ambien 10 mg tablet RxNorm: 154168 1 Tablet(s) PO QHS as needed TAKE ONE TABLET BY MOUTH AT BEDTIME NEEDED FOR INSOMNIA 10/31/2016 01/18/2018 Inactive acyclovir 400 mg tablet RxNorm: 566923 1 Tablet(s) PO TID 10/01/2016 10/05/2016 Inactive acyclovir 400 mg tablet RxNorm: 671665 1 Tablet(s) PO TID 10/01/2016 09/30/2016 Inactive phentermine 37.5 mg tablet RxNorm: 560381 1 Tablet(s) PO daily 09/26/2016 02/04/2017 Inactive Xanax 0.25 mg tablet RxNorm: 207448 Tablet(s) TAKE ONE TABLET BY MOUTH EVERY 8 HOURS NEEDED FOR ANXIETY 08/25/2016 01/18/2018 Inactive Ambien 10 mg tablet RxNorm: 414727 1 Tablet(s) PO daily as needed TAKE ONE TABLET BY MOUTH AT BEDTIME NEEDED FOR INSOMNIA 08/25/2016 11/19/2016 Inactive phentermine 37.5 mg tablet RxNorm: 489530 1 Tablet(s) PO daily 08/25/2016 09/25/2016 Inactive topiramate 25 mg tablet RxNorm: 957409 TAKE ONE TABLET BY MOUTH TWICE DAILY 07/09/2016 08/24/2016 Inactive Xanax 0.25 mg tablet RxNorm: 612578 Tablet(s) TAKE ONE TABLET BY MOUTH EVERY 8 HOURS NEEDED FOR ANXIETY 04/28/2016 06/25/2016 Inactive Ambien 10 mg tablet RxNorm: 765759 1 Tablet(s) PO daily as needed TAKE ONE TABLET BY MOUTH AT BEDTIME NEEDED FOR INSOMNIA 04/28/2016 06/24/2016 Inactive topiramate 25 mg tablet RxNorm: 344605 1 Tablet(s) PO BID 02/20/2016 06/18/2016 Inactive Ambien 10 mg tablet RxNorm: 913095 1 Tablet(s) PO daily as needed TAKE ONE TABLET BY MOUTH AT BEDTIME NEEDED FOR INSOMNIA 01/03/2016 03/31/2016 Inactive (Response to an electronic controlled substance refill request - RxReferenceNumber: [id number]) Xanax 0.25 mg tablet RxNorm: 324589 Tablet(s) TAKE ONE TABLET BY MOUTH EVERY 8 HOURS NEEDED FOR ANXIETY 01/03/2016 01/18/2018 Inactive (Response to an electronic controlled substance refill request - RxReferenceNumber: [id number]) meclizine 25 mg tablet RxNorm: 420515 1 Tablet(s) PO QID 12/13/2015 01/11/2016 Inactive Xanax 0.25 mg tablet RxNorm: 545806 Tablet(s) TAKE ONE TABLET BY MOUTH EVERY 8 HOURS NEEDED FOR ANXIETY 11/23/2015 01/18/2018 Inactive (Response to an electronic controlled substance refill request - RxReferenceNumber: [id number]) topiramate 25 mg tablet RxNorm: 879244 1 Tablet(s) PO BID 11/02/2015 12/12/2015 Inactive pt needs to make an appt Ambien 10 mg tablet RxNorm: 720205 1 Tablet(s) PO daily as needed TAKE ONE TABLET BY MOUTH AT BEDTIME NEEDED FOR INSOMNIA 10/30/2015 11/19/2016 Inactive (Response to an electronic controlled substance refill request - RxReferenceNumber: [id number]) Xanax 0.25 mg tablet RxNorm: 005028 Tablet(s) TAKE ONE TABLET BY MOUTH EVERY 8 HOURS NEEDED FOR ANXIETY 09/20/2015 10/18/2015 Inactive (Response to an electronic controlled substance refill request - RxReferenceNumber: [id number]) Xanax 0.25 mg tablet RxNorm: 519915 Tablet(s) TAKE ONE TABLET BY MOUTH EVERY 8 HOURS NEEDED FOR ANXIETY 06/28/2015 08/25/2015 Inactive (Response to an electronic controlled substance refill request - RxReferenceNumber: [id number]) topiramate 25 mg tablet RxNorm: 347098 1 Tablet(s) PO BID 06/27/2015 10/24/2015 Inactive Ambien 10 mg tablet RxNorm: 372974 1 Tablet(s) PO daily as needed TAKE ONE TABLET BY MOUTH AT BEDTIME NEEDED FOR INSOMNIA 06/26/2015 09/23/2015 Inactive (Response to an electronic controlled substance refill request - RxReferenceNumber: [id number]) Xanax 0.25 mg tablet RxNorm: 649504 Tablet(s) TAKE ONE TABLET BY MOUTH EVERY 8 HOURS NEEDED FOR ANXIETY 04/04/2015 06/02/2015 Inactive (Response to an electronic controlled substance refill request - RxReferenceNumber: [id number]) Ambien 10 mg tablet RxNorm: 070453 1 Tablet(s) PO daily as needed TAKE ONE TABLET BY MOUTH AT BEDTIME NEEDED FOR INSOMNIA 02/16/2015 05/16/2015 Inactive (Response to an electronic controlled substance refill request - RxReferenceNumber: [id number]) Ambien 10 mg tablet RxNorm: 967275 TAKE ONE TABLET BY MOUTH AT BEDTIME NEEDED FOR INSOMNIA 01/11/2015 02/09/2015 Inactive (Response to an electronic controlled substance refill request - RxReferenceNumber: [id number]) Ambien 10 mg tablet RxNorm: 212309 1 Tablet(s) PO QHS as needed TAKE ONE TABLET BY MOUTH AT BEDTIME NEEDED 01/11/2015 01/11/2015 Inactive (Appended: Controlled substance eRx refill - RxReferenceNumber: [id number]) topiramate 25 mg tablet RxNorm: 866262 1 Tablet(s) PO BID 01/11/2015 05/10/2015 Inactive Xanax 0.25 mg tablet RxNorm: 784360 TAKE ONE TABLET BY MOUTH EVERY 8 HOURS NEEDED FOR ANXIETY 01/11/2015 02/09/2015 Inactive (Response to an electronic controlled substance refill request - RxReferenceNumber: [id number]) Xanax 0.25 mg tablet RxNorm: 575940 Tablet(s) TAKE ONE TABLET BY MOUTH EVERY 8 HOURS NEEDED FOR ANXIETY 01/11/2015 01/11/2015 Inactive (Response to an electronic controlled substance refill request - RxReferenceNumber: [id number]) Xanax 0.25 mg tablet RxNorm: 138407 Tablet(s) TAKE ONE TABLET BY MOUTH EVERY 8 HOURS NEEDED FOR ANXIETY 11/20/2014 12/17/2014 Inactive (Response to an electronic controlled substance refill request - RxReferenceNumber: [id number]) Xanax 0.25 mg tablet RxNorm: 652445 TAKE ONE TABLET BY MOUTH EVERY 8 HOURS NEEDED FOR ANXIETY 09/14/2014 10/13/2014 Inactive (Response to an electronic controlled substance refill request - RxReferenceNumber: [id number]) Xanax 0.25 mg tablet RxNorm: 713836 Tablet(s) PO TAKE ONE TABLET BY MOUTH EVERY 8 HOURS NEEDED FOR ANXIETY 09/12/2014 09/15/2014 Inactive (Appended: Controlled substance eRx refill - RxReferenceNumber: [id number]) Xanax 0.25 mg tablet RxNorm: 937106 TAKE ONE TABLET BY MOUTH EVERY 8 HOURS NEEDED FOR ANXIETY 07/31/2014 07/31/2014 Inactive (Response to an electronic controlled substance refill request - RxReferenceNumber: [id number]) Ambien 10 mg tablet RxNorm: 843390 TAKE ONE TABLET BY MOUTH AT BEDTIME NEEDED FOR INSOMNIA 07/31/2014 11/19/2016 Inactive (Response to an electronic controlled substance refill request - RxReferenceNumber: [id number]) Xanax 0.25 mg tablet RxNorm: 541539 TAKE ONE TABLET BY MOUTH EVERY 8 HOURS NEEDED FOR ANXIETY 07/31/2014 08/29/2014 Inactive (Response to an electronic controlled substance refill request - RxReferenceNumber: [id number]) metronidazole 500 mg tablet RxNorm: 745449 1 Tablet(s) PO TID 05/25/2014 05/31/2014 Inactive Diflucan 150 mg tablet RxNorm: 911781 1 Tablet(s) PO daily 05/25/2014 05/29/2014 Inactive topiramate 25 mg tablet RxNorm: 685109 1 Tablet(s) PO BID 04/24/2014 11/19/2014 Inactive Xanax 0.25 mg tablet RxNorm: 178736 Tablet(s) PO TAKE ONE TABLET BY MOUTH EVERY 8 HOURS NEEDED FOR ANXIETY 01/17/2014 07/31/2014 Inactive (Appended: Controlled substance eRx refill - RxReferenceNumber: [id number]) Xanax 0.25 mg tablet RxNorm: 666946 Tablet(s) PO TAKE ONE TABLET BY MOUTH EVERY 8 HOURS NEEDED FOR ANXIETY 01/16/2014 01/17/2014 Inactive (Appended: Controlled substance eRx refill - RxReferenceNumber: [id number]) Xanax 0.25 mg tablet RxNorm: 644731 Tablet(s) PO TAKE ONE TABLET BY MOUTH EVERY 8 HOURS NEEDED FOR ANXIETY 01/13/2014 09/11/2014 Inactive (Appended: Controlled substance eRx refill - RxReferenceNumber: [id number]) Xanax 0.25 mg tablet RxNorm: 724577 Tablet(s) PO TAKE ONE TABLET BY MOUTH EVERY 8 HOURS NEEDED FOR ANXIETY 11/21/2013 01/16/2014 Inactive (Appended: Controlled substance eRx refill - RxReferenceNumber: [id number]) Xanax 0.25 mg tablet RxNorm: 620638 Tablet(s) PO TAKE ONE TABLET BY MOUTH EVERY 8 HOURS NEEDED FOR ANXIETY 11/18/2013 01/15/2014 Inactive (Appended: Controlled substance eRx refill - RxReferenceNumber: [id number]) Ambien 10 mg tablet RxNorm: 088045 Tablet(s) PO TAKE ONE TABLET BY MOUTH EVERY DAY AT BEDTIME NEEDED 08/31/2013 07/31/2014 Inactive (Appended: Controlled substance eRx refill - RxReferenceNumber: [id number]) Ambien 10 mg tablet RxNorm: 398246 Tablet(s) PO TAKE ONE TABLET BY MOUTH EVERY DAY AT BEDTIME NEEDED 08/31/2013 08/30/2013 Inactive (Appended: Controlled substance eRx refill - RxReferenceNumber: [id number]) Xanax 0.25 mg tablet RxNorm: 059750 Tablet(s) PO TAKE ONE TABLET BY MOUTH EVERY 8 HOURS NEEDED FOR ANXIETY 07/21/2013 11/21/2013 Inactive (Appended: Controlled substance eRx refill - RxReferenceNumber: [id number]) Xanax 0.25 mg tablet RxNorm: 106581 Tablet(s) PO TAKE ONE TABLET BY MOUTH EVERY 8 HOURS NEEDED FOR ANXIETY 07/19/2013 07/21/2013 Inactive (Appended: Controlled substance eRx refill - RxReferenceNumber: [id number]) omeprazole 20 mg capsule,delayed release RxNorm: 513443 Capsule(s) PO TAKE ONE CAPSULE BY MOUTH EVERY DAY 05/23/2013 04/23/2014 Inactive Flagyl 500 mg tablet RxNorm: 083598 1 Tablet(s) PO BID 02/21/2013 02/20/2013 Inactive Flagyl 500 mg tablet RxNorm: 847341 1 Tablet(s) PO BID 02/21/2013 02/27/2013 Inactive fluconazole 150 mg tablet RxNorm: 482369 1 Tablet(s) PO PRN one pill as needed for yeast infection symptoms 02/14/2013 04/23/2014 Inactive Xanax 0.25 mg tablet RxNorm: 373947 Tablet(s) PO TAKE ONE TABLET BY MOUTH EVERY 8 HOURS NEEDED FOR ANXIETY 02/03/2013 11/20/2013 Inactive (Appended: Controlled substance eRx refill - RxReferenceNumber: [id number]) Ambien 10 mg tablet RxNorm: 841966 Tablet(s) PO TAKE ONE TABLET BY MOUTH AT BEDTIME NEEDED 02/03/2013 08/31/2013 Inactive (Appended: Controlled substance eRx refill - RxReferenceNumber: [id number]) Ambien 10 mg tablet RxNorm: 979924 Tablet(s) PO TAKE ONE TABLET BY MOUTH AT BEDTIME NEEDED 02/03/2013 01/10/2015 Inactive (Appended: Controlled substance eRx refill - RxReferenceNumber: [id number]) Xanax 0.25 mg tablet RxNorm: 930200 Tablet(s) PO 02/03/2013 07/20/2013 Inactive TAKE ONE TABLET BY MOUTH EVERY 8 HOURS NEEDED FOR ANXIETY (Appended: Controlled substance eRx refill - RxReferenceNumber: [id number]) Xanax 0.25 mg tablet RxNorm: 435773 Tablet(s) PO TAKE ONE TABLET BY MOUTH EVERY 8 HOURS NEEDED FOR ANXIETY 12/08/2012 02/03/2013 Inactive (Appended: Controlled substance eRx refill - RxReferenceNumber: [id number]) Ambien 10 mg tablet RxNorm: 114913 Tablet(s) PO TAKE ONE TABLET BY MOUTH AT BEDTIME NEEDED 12/08/2012 02/02/2013 Inactive (Appended: Controlled substance eRx refill - RxReferenceNumber: [id number]) Xanax 0.25 mg tablet RxNorm: 160644 Tablet(s) PO TAKE ONE TABLET BY MOUTH EVERY 8 HOURS NEEDED FOR ANXIETY 12/08/2012 12/07/2012 Inactive (Appended: Controlled substance eRx refill - RxReferenceNumber: [id number]) Ambien 10 mg tablet RxNorm: 516068 Tablet(s) PO TAKE ONE TABLET BY MOUTH AT BEDTIME NEEDED 12/08/2012 02/03/2013 Inactive (Appended: Controlled substance eRx refill - RxReferenceNumber: [id number]) Ambien 10 mg tablet RxNorm: 016488 Tablet(s) PO 08/27/2012 12/08/2012 Inactive TAKE ONE TABLET BY MOUTH AT BEDTIME NEEDED (Appended: Controlled substance eRx refill - RxReferenceNumber: [id number]) Xanax 0.25 mg tablet RxNorm: 546265 Tablet(s) PO 08/24/2012 02/02/2013 Inactive TAKE ONE TABLET BY MOUTH EVERY 8 HOURS NEEDED FOR ANXIETY (Appended: Controlled substance eRx refill - RxReferenceNumber: [id number]) Ambien 10 mg tablet RxNorm: 576261 Tablet(s) PO 08/24/2012 08/27/2012 Inactive TAKE ONE TABLET BY MOUTH AT BEDTIME NEEDED (Appended: Controlled substance eRx refill - RxReferenceNumber: [id number]) Xanax 0.25 mg tablet RxNorm: 157571 Tablet(s) PO 08/24/2012 12/08/2012 Inactive TAKE ONE TABLET BY MOUTH EVERY 8 HOURS NEEDED FOR ANXIETY (Appended: Controlled substance eRx refill - RxReferenceNumber: [id number]) Xanax 0.25 mg tablet RxNorm: 683527 1 Tablet(s) PO Q8 PRN 07/09/2012 08/24/2012 Inactive omeprazole 20 mg capsule,delayed release RxNorm: 785205 1 Capsule(s) PO daily 05/19/2012 12/14/2012 Inactive Ambien 10 mg tablet RxNorm: 201818 1 Tablet(s) PO QHS 05/19/2012 08/24/2012 Inactive Xanax 0.25 mg tablet RxNorm: 318466 1 Tablet(s) PO Q8 PRN 03/16/2012 06/13/2012 Inactive Diflucan 150 mg Tab RxNorm: 473431 1 Tablet(s) PO daily 01/05/2012 01/14/2012 Inactive Ambien 10 mg tablet RxNorm: 741773 1 Tablet(s) PO QHS 01/02/2012 04/30/2012 Inactive Ambien 10 mg Tab RxNorm: 592002 1 Tablet(s) PO QHS 12/24/2011 01/01/2012 Inactive Rocephin 500 mg Solution for Injection RxNorm: 502438 1 Milliliter(s) Inj 11/13/2011 11/13/2011 Inactive omeprazole 20 mg capsule,delayed release RxNorm: 723514 1 Capsule(s) PO daily 10/07/2011 05/18/2012 Inactive omeprazole 20 mg Cap, Delayed Release RxNorm: 809520 1 Capsule(s) PO daily 10/07/2011 04/03/2012 Inactive Ambien 5 mg Tab RxNorm: 823035 1 Tablet(s) PO QHS 1 tab q hs prn insomnia 10/07/2011 12/23/2011 Inactive Xanax 0.25 mg Tab RxNorm: 974778 1 Tablet(s) PO Q8 PRN 09/29/2011 03/15/2012 Inactive Medication Administered Medication Codes Instructions Start Date Status Rocephin 500 mg Solution for Injection RxNorm: 080762 1Milliliter 11/13/2011 No longer Active Immunizations Vaccine [...] Item Item Code Result Date GC/CHL PRB 7186553 CHLM PROBE NEG 04/26/2014 GC/CHL PRB 6208951 GC PROBE NEG 04/26/2014 TSH 7136089 TSH 2.977 uIU/ML 02/16/2013 GC/CHL PRB 7590873 SOURCE KIMBERLYN UNKNOWN 02/15/2013 GC/CHL PRB 5020317 CHLM PROBE NEG 02/15/2013 GC/CHL PRB 6556964 GC PROBE NEG 02/15/2013 CHEM 14 2380100 AST 12 U/L 02/15/2013 CHEM 14 9922480 ALT 16 IU/L 02/15/2013 CHEM 14 2649702 BUN 13 MG/DL 02/15/2013 CHEM 14 2305698 ALBUMIN 4.6 GM/DL 02/15/2013 CHEM 14 5985676 CHLORIDE 104 MMOL/L 02/15/2013 CHEM 14 9831226 BILI TOT 0.5 MG/DL 02/15/2013 CHEM 14 6053496 ALK PHOS 55 U/L 02/15/2013 CHEM 14 6922442 SODIUM 137 MMOL/L 02/15/2013 CHEM 14 8859123 CREATININE 0.79 MG/DL 02/15/2013 CHEM 14 9102332 CALCIUM 9.3 MG/DL 02/15/2013 CHEM 14 9362039 POTASSIUM 4.0 MMOL/L 02/15/2013 CHEM 14 3211647 PROT TOT 6.9 GM/DL 02/15/2013 CHEM 14 8642404 GLUCOSE 99 MG/DL 02/15/2013 CHEM 14 2873900 BICARB 29 MMOL/L 02/15/2013 CHEM 14 8428322 ANION GAP 4 MEQ/L 02/15/2013 GFR CALC 7333789 GFR AA >60 ML/MIN 02/15/2013 GFR CALC 1929828 GFR NON-AA >60 ML/MIN 02/15/2013 LIPID GRP HDL TEST 38 MG/DL 02/15/2013 LIPID GRP TRIG 126 MG/DL 02/15/2013 LIPID GRP TEST LDL 112 MG/DL 02/15/2013 LIPID GRP CHOL 175 MG/DL 02/15/2013 LIPID GRP RCHOL/HDL 4.61 RATIO 02/15/2013 CBC 1769161 WBC 5.8 10e9/L 02/15/2013 CBC 0627007 RBC 4.51 10e12/L 02/15/2013 CBC 7313190 HGB 13.8 g/dL 02/15/2013 CBC 2263200 HCT DET 39.0 % 02/15/2013 CBC 5527579 MCV 86.5 fL 02/15/2013 CBC 1493828 MCH 30.6 pg 02/15/2013 CBC 5263169 MCHC 35.4 g/dL 02/15/2013 CBC 5560227 PLT 284 10e9/L 02/15/2013 CBC 1444661 MPV 10.3 fL 02/15/2013 CBC 6957472 BLANQUITA % 62.9 % 02/15/2013 CBC 8570352 LY % 26.8 % 02/15/2013 CBC 2007915 MON % 9.1 % 02/15/2013 CBC 9427376 EOS % 1.2 % 02/15/2013 CBC 9863566 BASO % 0.0 % 02/15/2013 CBC 6715730 RDW 14.4 % 02/15/2013 CBC 2355616 ABS BLANQUITA 3.65 10e9/L 02/15/2013 CBC 6682766 ABS LYMPH 1.55 10e9/L 02/15/2013 CBC 3938094 ABS MONO 0.53 10e9/L 02/15/2013 CBC 7435289 ABS EOS 0.07 10e9/L 02/15/2013 CBC 2001640 ABS BASO 0.00 10e9/L 02/15/2013 CBC 6467301 RDW-SD 44.0 fL 02/15/2013 Review of Systems [...] distress 09/29/2011 None Full Exam - General 1994 Eyes [...] PROBE (CHYLMD TRACH DNA AMP PROBE) CPT-4: 23748 04/24/2014 GC PROBE (N.GONORRHOEAE DNA AMP PROB) CPT-4: 98427 04/24/2014 ROUTINE VENIPUNCTURE CPT- 4: 55137 02/15/2013 PREV VISIT EST AGE 40-64 CPT-4: 91070 01/05/2012 ROCEPHIN, PER 250 MG CPT- 4: J0696 11/13/2011 THER/PROPH/DIAG INJ SC/IM CPT-4: 45292 11/13/2011 REMOVE IMPACTED EAR WAX UNI CPT-4: 49322 11/13/2011 Vital Signs Date Vital 02/22/2018 Blood Pressure 1: 132/70 Code: 8480-6 BMI: 33.1 Code: 47182-3 Heart Rate 1: 75 bpm Height: 5'8" SpO2: 97% Weight: 218 lbs 01/21/2018 Blood Pressure 1: 122/78 Code: 8480-6 Heart Rate 1: 73 bpm Height: 5'8" SpO2: 98% Weight: 09/01/2017 Blood Pressure 1: 134/82 Code: 8480-6 Heart Rate 1: 80 bpm Height: SpO2: 98% Weight: 06/18/2017 Blood Pressure 1: 122/76 Code: 8480-6 BMI: 30.7 Code: 44477-6 Heart Rate 1: 78 bpm Height: 5'8" SpO2: 98% Weight: 202 lbs 02/19/2017 Blood Pressure 1: 132/70 Code: 8480-6 BMI: 30.1 Code: 50211-4 Heart Rate 1: 72 bpm Height: 5'8" SpO2: 98% Weight: 198 lbs 02/05/2017 Blood Pressure 1: 124/84 Code: 8480-6 BMI: 29.3 Code: 57081-0 Heart Rate 1: 98 bpm Height: 5'8" SpO2: 98% Weight: 193 lbs 11/20/2016 Blood Pressure 1: 130/86 Code: 8480-6 BMI: 30.0 Code: 92654-1 Heart Rate 1: 90 bpm Height: 5'8" SpO2: 99% Weight: 197 lbs 09/26/2016 Blood Pressure 1: 124/84 Code: 8480-6 Heart Rate 1: 74 bpm SpO2: 97% Weight: 203 lbs 08/25/2016 Blood Pressure 1: 124/86 Code: 8480-6 BMI: 31.0 Code: 67580-6 Heart Rate 1: 90 bpm Height: 5'8" SpO2: 95% Weight: 204 lbs 12/13/2015 Blood Pressure 1: 112/80 Code: 8480-6 BMI: 31.5 Code: 86353-4 Heart Rate 1: 87 bpm Height: 5'8" SpO2: 97% Weight: 207 lbs 11/15/2015 Blood Pressure 1: 146/78 Code: 8480-6 BMI: 32.1 Code: 90558-4 Heart Rate 1: 96 bpm Height: 5'8" SpO2: 97% Weight: 211 lbs 06/28/2015 Blood Pressure 1: 132/64 Code: 8480-6 BMI: 29.5 Code: 73597-8 Heart Rate 1: 91 bpm Height: 5'8" SpO2: 98% Weight: 194 lbs 05/23/2014 Blood Pressure 1: 124/80 Code: 8480-6 BMI: 30.3 Code: 53808-7 Heart Rate 1: 68 bpm Height: 5'8" Weight: 199 lbs 04/24/2014 Blood Pressure 1: 132/72 Code: 8480-6 BMI: 30.7 Code: 20443-0 Heart Rate 1: 82 bpm Height: 5'8" SpO2: 98% Weight: 202 lbs 02/14/2013 Blood Pressure 1: 122/80 Code: 8480-6 BMI: 28.6 Code: 04693-3 Heart Rate 1: 84 bpm Height: 5'8" Respiratory Rate: 16 bpm Weight: 188 lbs 02/16/2012 Blood Pressure 1: 104/66 Code: 8480-6 BMI: 28.5 Code: 55507-3 Heart Rate 1: 76 bpm Height: 5'7" Weight: 182 lbs 01/05/2012 Blood Pressure 1: 100/64 Code: 8480-6 BMI: 28.7 Code: 01258-5 Heart Rate 1: 78 bpm Height: 5'7" Respiratory Rate: 16 bpm Weight: 183 lbs 11/13/2011 Blood Pressure 1: 116/78 Code: 8480-6 Heart Rate 1: 84 bpm Respiratory Rate: 16 bpm SpO2: 98% Temperature: 36.7 (C) / 98.1 (F) Weight: 181 lbs 09/29/2011 Blood Pressure 1: 118/82 Code: 8480-6 BMI: 36.8 Code: 61019-4 Heart Rate 1: 72 bpm Height: 4'10" [...] the day. 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 PATIENT, LEVEL III Diagnosis: Excessive and frequent menstruation with regular cycle[ICD10: N92.0] [facility] CPT-4: 00105 02/22/2018 ([id number]) 83249 EST. PATIENT, LEVEL III Diagnosis: Gastro-esophageal reflux disease with esophagitis[ICD10: K21.0] Unique Jain MD, [facility] CPT-4: 46739 01/21/2018 [id number] EST. PATIENT, LEVEL III Diagnosis: Pain in left leg[ICD10: M79.605] Maylin Jain MD, [facility] CPT-4: 63642 09/01/2017 ([id number]) 54145 EST. PATIENT, LEVEL III Diagnosis: Generalized anxiety disorder[ICD10: F41.1] Unique Jain MD, [facility] CPT-4: 90610 06/18/2017 [id number] EST. PATIENT, LEVEL IV Diagnosis: Pain in left shoulder[ICD10: M25.512] Diagnosis: Pain in right shoulder[ICD10: M25.511] Maylin Jain MD, [facility] CPT- 4: 43155 02/19/2017 ([id number]) PREV VISIT EST AGE 40-64 Diagnosis: Encounter for gynecological examination (general) (routine) without abnormal findings[ICD10: Z01.419] Bianca Jain MD, [facility] [facility] CPT-4: 22959 02/05/2017 ([id number]) 29708 EST. PATIENT, LEVEL III Diagnosis: Generalized anxiety disorder[ICD10: F41.1] Diagnosis: Other obesity due to excess calories[ICD10: E66.09] Bianca Jain MD, [facility] CPT-4: 34555 11/20/2016 ([id number]) Miscellaneous no charge Diagnosis: Other obesity due to excess calories[ICD10: E66.09] aMylin Jain MD, [facility] CPT-4: 99219 09/26/2016 ([id number]) 76752 EST. PATIENT, LEVEL IV Diagnosis: Generalized anxiety disorder[ICD10: F41.1] Diagnosis: Adjustment insomnia[ICD10: F51.02] Diagnosis: Other obesity due to excess calories[ICD10: E66.09] Unique Jain MD, [facility] CPT-4: 63388 08/25/2016 64141 EST. PATIENT, LEVEL IV Diagnosis: Dizziness and giddiness[ICD10: R42] Maylin Jain MD, [facility] CPT- 4: 92385 12/13/2015 [id number] EST. PATIENT, LEVEL IV Diagnosis: Dizziness and giddiness[ICD10: R42] Diagnosis: Other chest pain[ICD10: R07.89] Maylin Jain MD, [facility] CPT-4: 04989 11/15/2015 ([id number]) 15524 EST. PATIENT, LEVEL III Diagnosis: GENERALIZED ANXIETY DISEASE[ICD9: 300.02] Diagnosis: Migraines[ICD9: 346.90] Unique Jain MD, [facility] CPT-4: 54525 06/28/2015 ([id number]) 55927 EST. PATIENT, LEVEL III Diagnosis: Right ankle pain[ICD9: 719.47] Diagnosis: Right ankle sprain[ICD9: 845.00] Unique Jain MD, [facility] CPT- 4: 79129 05/23/2014 ([id number]) PREV VISIT EST AGE 40-64 Diagnosis: ROUTINE GYNE EXAM[ICD9: V72.31] Diagnosis: Laboratory exam ordered as part of routine general medical examination[ICD9: V72.62] Bianca Jain MD, [facility] CPT-4: 57324 04/24/2014 ([id number]) PREV VISIT EST AGE 40-64 Diagnosis: Well woman exam with routine gynecological exam[ICD9: V72.31] Bianca Jain MD, [facility] CPT-4: 58865 02/14/2013 56852 EST. PATIENT, LEVEL IV Diagnosis: Numbness in both legs[ICD9: 782.0] Diagnosis: Myalgia[ICD9: 729.1] Unique Jain MD, [facility] CPT-4: 74652 02/16/2012 ([id number]) 23596 EST. PATIENT, LEVEL IV Diagnosis: Acute maxillary sinusitis[ICD9: 461.0] Diagnosis: Cough[ICD9: 786.2] Diagnosis: Cerumen impaction[ICD9: 380.4] [facility] CPT-4: 00999 11/13/2011 ([id number]) OFFICE VISIT, NEW - LEVEL 3 Diagnosis: GENERALIZED ANXIETY DISEASE[ICD9: 300.02] Diagnosis: DEPRESSIVE DISORDER NEC[ICD9: 311] Diagnosis: Impacted cerumen[ICD9: 380.4] Diagnosis: HEARING LOSS[ICD9: 389.9] [facility] CPT-4: 48170 09/29/2011 Plan of Care Planned Activity Notes Codes Status Date Care Plan: Cbc With Differential Cancelled 02/23/2018 Care Plan: Bhcg Qual Cancelled 02/23/2018 Care Plan: Referral Order SNOMED-CT : [id number] Pending 02/23/2018 Visit Plan: Excessive menstrual bleeding and irregular menstruation - pt would like to be referred to OB and would like to know about a possible hysterectomy - will refer - pt is to notify clinic if symptoms do not improve, if they worsen, or with any changes, questions, or concerns. 02/22/2018 Appointment: Maylin Chowdhury WPtel: [facility] (15 min) Moderate 02/22/2018 [...] not improve. 09/01/2017 Appointment: Maylin Chowdhury WPtel: [facility] [place] (30 min) Complex 09/01/2017 Patient Education: Patient Medication Summary Completed 09/01/2017 Appointment: Bian[facility]ain [facility]Ptel[facility] [facility] (15 min) Moderate 07/29/2017 Visit Plan: Chronic [...] not improve. 02/19/2017 Appointment: Maylin Chowdhury WPtel: [facility] (15 min) Moderate 02/19/2017 Patient Education: [...] PAP Pending 02/05/2017 Appointment: Bianca Jain WPtel: [address] [place] [address] [facility] 01/22/2017 Visit Plan: Obesity - chronic issue with this patient. The pt has been counseled about diet changes, calorie restriction, and need to exercise. Pt will RTC in one month for weight check. Anxiety - refill anxiolytic 11/20/2016 Appointment: Bianca Jain WPtel: [facility] [facility] 11/20/2016 Patient Education: Patient [...] situational exposure. No change in current medications. Exuokten-yxijsrlpjy-iwnnkc ambien for prn use Obesity - chronic [...] situational exposure. No change in current medications. Zirogcaw-qjgwcmybjg-xgqygw ambien for prn use Obesity - chronic issue with this patient. The pt has been counseled about diet changes, calorie restriction, and need to exercise. Pt will RTC in one month for weight check. 08/25/2016 Appointment: Unique Nichole WPtel: [address] [place], [place] [phone] (15 min) Moderate 08/25/2016 Patient Education: Patient [...] pt consult with Dr. Shun Harrison at [facility]. Migraine headaches - start on topamax. 04/24/2014 Appointment: Bianca Jain WPtel: [facility] [facility] [place] Pap Only 04/24/2014 Patient Education: Patient Medication Summary Completed 04/24/2014 Care Plan: PAP Pending 04/24/2014 Appointment: Unique Nichole WPtel: [address] [place] [phone] [place] Other 05/31/2013 Patient Education: Patient Medication [...] Summary Completed 02/14/2013 Appointment: Bianca Jain [facility]Ptel: [facility] [facility] [place] Pap Only 01/31/2013 Appointment: Unique Nichole WPtel: [phone] [place] Other 09/13/2012 Visit Plan: Numbness-bilateral lower ykp-zoapkyqo-hlqd to check labs including chem panel to evaluate electrolytes as well as blood sugar, cbc, and b12 level. Recommend patient start on a multivitamin daily and drink plenty of fluids. Will call patient with labs results. Instructed patient to call with any concerns or worsening symptoms. Patient verbalized understanding of plan. 02/16/2012 Appointment: Unique Nichole WPtel: [address] [phone] Other 02/16/2012 Patient Education: Patient Medication [...] cancer. 01/05/2012 Appointment: Bianca [facility]ain [facility]el[facility] [address] [facility] [place] Pap Only 01/05/2012 Patient Education: Patient [...] improved. 11/13/2011 Appointment: Bianca Jain WPtel: [address] [facility] Other 11/13/2011 Patient Education: Patient Medication Summary [...] process. 09/29/2011 Appointment: Bian[facility]ain [facility]el[facility] [address] [facility] [facility] Patient 09/29/2011 Patient Education: Patient [...] situational exposure. No change in current medications. Ivvrzvwi-wtprypsdxi-yftdhg ambien for prn use Obesity - chronic [...] situational exposure. No change in current medications. Xnhftbgq-lwqexyyjzv-dndtnz ambien for prn use Obesity - chronic [...] symptoms worsen, or with any other concerns. cost plastic surgery shun harrison and saritha quick [...] pt consult with Dr. Shun Harrison at [facility]. Migraine headaches - start on topamax. Check labs-cbc, cmp, b12 level. . Numbness-bilateral lower bau-vmfesckm-ituz to check labs including chem panel to [...]
--- OUTSIDE RECORDS SUMMARY | 2019-03-03 07:06 | XMS REPORT | Continuity of Care Document ---
Author Organization Unknown Address Unknown Allergies Active Description Code Type Severity Reaction Onset Reported/Identified Relationship to Patient Clinical Status Yes NOVACAINE NOVACAINE Mild N/A 02/07/2012 Yes procaine [id number] Drug Allergy Severe UNABLE TO TAKE 04/07/2018 Medications There is no data. Problems Date Dx Coded Attending Type Code Diagnosis Diagnosed By 02/07/2012 Ot 372.72 02/07/2012 Ot 784.0 09/05/2014 Ot 793.82 09/05/2014 Ot V76.12 09/05/2014 Ot 793.80 09/05/2014 Ot 793.89 09/05/2014 Ot 793.80 09/05/2014 Ot V67.9 09/05/2014 Ot 793.80 09/05/2014 Ot V67.9 09/05/2014 LY CUENCA [facility] Ot 719.47 09/05/2014 LY CUECNA [facility] Ot 793.7 11/22/2015 Ot R07.9 11/22/2015 Ot R42 12/24/2015 PANKAJ COTTER CRIMINAL PROFILER Ot R07.9 12/24/2015 PANKAJ COTTER CRIMINAL PROFILER Ot R42 02/17/2016 PANKAJ COTTER CRIMINAL PROFILER Ot R07.9 CHEST PAIN, UNSPECIFIED 02/17/2016 PANKAJ COTTER CRIMINAL PROFILER Ot R42 DIZZINESS AND GIDDINESS 02/09/2017 PANKAJ COTTER CRIMINAL PROFILER Ot R07.9 CHEST PAIN, UNSPECIFIED 02/09/2017 PANKAJ COTTER CRIMINAL PROFILER Ot R42 DIZZINESS AND GIDDINESS 02/12/2017 LY CUENCA [facility] Ot 719.47 JOINT PAIN-ANKLE 02/12/2017 LY CUENCA [facility] Ot 793.7 NOSP (ABN) FINDINGS ON RADIOLOGICAL OT 02/12/2017 Ot R07.9 CHEST PAIN, UNSPECIFIED 02/12/2017 Ot R42 DIZZINESS AND GIDDINESS 02/20/2017 TERESSA JAIN MD Ot Z12.31 ENCNTR SCREEN MAMMOGRAM FOR MALIGNANT NE 03/17/2017 PANKAJ COTTER CRIMINAL PROFILER Ot R07.9 CHEST PAIN, UNSPECIFIED 03/17/2017 PANKAJ COTTER CRIMINAL PROFILER Ot R42 DIZZINESS AND GIDDINESS 03/17/2017 TERESSA JAIN MD Ot Z12.31 ENCNTR SCREEN MAMMOGRAM FOR MALIGNANT NE 03/17/2017 TERESSA JAIN MD Ot Z12.31 ENCNTR SCREEN MAMMOGRAM FOR MALIGNANT NE 03/17/2017 TERESSA JAIN MD Ot Z12.31 ENCNTR SCREEN MAMMOGRAM FOR MALIGNANT NE 03/17/2017 LY CUENCA [employer] Ot 719.47 JOINT PAIN-ANKLE 03/17/2017 LY CUENCA [employer] Ot 793.7 NOSP (ABN) FINDINGS ON RADIOLOGICAL OT 03/17/2017 Ot R07.9 CHEST PAIN, UNSPECIFIED 03/17/2017 Ot R42 DIZZINESS AND GIDDINESS 03/19/2017 PANKAJ COTTER CRIMINAL PROFILER Ot R22.1 LOCALIZED SWELLING, MASS AND LUMP, NECK 03/19/2017 PANKAJ COTTER APRN Ot Z00.00 ENCNTR FOR GENERAL ADULT MEDICAL EXAM W03/23/2017 PANKAJ COTTER CRIMINAL PROFILER Ot R22.1 LOCALIZED SWELLING, MASS AND LUMP, NECK 03/23/2017 PANKAJ COTTER CRIMINAL PROFILER Ot Z00.00 ENCNTR FOR GENERAL ADULT MEDICAL EXAM W04/02/2017 TERESSA JAIN MD Ot Z12.31 ENCNTR SCREEN MAMMOGRAM FOR MALIGNANT NE 04/02/2017 PANKAJ COTTER CRIMINAL PROFILER Ot R22.1 LOCALIZED SWELLING, MASS AND LUMP, NECK 04/02/2017 PANKAJ COTTER CRIMINAL PROFILER Ot Z00.00 ENCNTR FOR GENERAL ADULT MEDICAL EXAM 09/02/2017 PANKAJ COTTER CRIMINAL PROFILER Ot M79.662 PAIN IN LEFT LOWER LEG 09/14/2017 PANKAJ COTTER CRIMINAL PROFILER Ot M79.605 PAIN IN LEFT LEG 09/14/2017 PANKAJ COTTER CRIMINAL PROFILER Ot M79.89 OTHER SPECIFIED SOFT TISSUE DISORDERS 09/14/2017 PANKAJ COTTER CRIMINAL PROFILER Ot M79.662 PAIN IN LEFT LOWER LEG 09/25/2017 PANKAJ COTTER CRIMINAL PROFILER Ot M79.605 PAIN IN LEFT LEG 09/25/2017 PANKAJ COTTER CRIMINAL PROFILER Ot M79.89 OTHER SPECIFIED SOFT TISSUE DISORDERS 02/23/2018 PANKAJ COTTER CRIMINAL PROFILER Ot R07.9 CHEST PAIN, UNSPECIFIED 02/23/2018 PANKAJ COTTER CRIMINAL PROFILER Ot R42 DIZZINESS AND GIDDINESS 02/23/2018 CRYSTAL FITCH, TERESSA Hallman Ot Z12.31 ENCNTR SCREEN MAMMOGRAM FOR MALIGNANT NE 02/23/2018 PANKAJ COTTER CRIMINAL PROFILER Ot R22.1 LOCALIZED SWELLING, MASS AND LUMP, NECK 02/23/2018 PANKAJ COTTER CRIMINAL PROFILER Ot Z00.00 ENCNTR FOR GENERAL ADULT MEDICAL EXAM W/ 02/23/2018 PANKAJ COTTER CRIMINAL PROFILER Ot M79.662 PAIN IN LEFT LOWER LEG 02/23/2018 PANKAJ COTTER CRIMINAL PROFILER Ot M79.605 PAIN IN LEFT LEG 02/23/2018 PANKAJ COTTER CRIMINAL PROFILER Ot M79.89 OTHER SPECIFIED SOFT TISSUE DISORDERS 02/25/2018 PANKAJ COTTER CRIMINAL PROFILER Ot N92.0 EXCESSIVE AND FREQUENT MENSTRUATION WITH 03/01/2018 PANKAJ COTTER CRIMINAL PROFILER Ot N92.0 EXCESSIVE AND FREQUENT MENSTRUATION WITH 03/02/2018 PANKAJ COTTER CRIMINAL PROFILER Ot N92.1 EXCESSIVE AND FREQUENT MENSTRUATION WITH 03/02/2018 PANKAJ COTTER CRIMINAL PROFILER Ot R93.8 ABNORMAL FINDINGS ON DIAGNOSTIC IMAGING 03/02/2018 PANKAJ COTTER CRIMINAL PROFILER Ot N92.1 EXCESSIVE AND FREQUENT MENSTRUATION WITH 03/02/2018 PANKAJ COTTER CRIMINAL PROFILER Ot R93.8 ABNORMAL FINDINGS ON DIAGNOSTIC IMAGING 03/10/2018 PANKAJ COTTER CRIMINAL PROFILER Ot N92.0 EXCESSIVE AND FREQUENT MENSTRUATION WITH 03/15/2018 PANKAJ COTTER CRIMINAL PROFILER Ot N92.1 EXCESSIVE AND FREQUENT MENSTRUATION WITH 03/15/2018 PANKAJ COTTER CRIMINAL PROFILER Ot R93.8 ABNORMAL FINDINGS ON DIAGNOSTIC IMAGING 03/18/2018 DAVY DUNNE CRIMINAL PROFILER Ot M54.5 LOW BACK PAIN 03/18/2018 DAVY DUNNE CRIMINAL PROFILER Ot R10.32 LEFT LOWER QUADRANT PAIN 03/18/2018 DAVY DUNNE CRIMINAL PROFILER Ot Z88.4 ALLERGY STATUS TO ANESTHETIC AGENT STATU 03/22/2018 DAVY DUNNE CRIMINAL PROFILER Ot M54.5 LOW BACK PAIN 03/22/2018 DAVY DUNNE CRIMINAL PROFILER Ot R10.32 LEFT LOWER QUADRANT PAIN 03/22/2018 DAVY DUNNE CRIMINAL PROFILER Ot Z88.4 ALLERGY STATUS TO ANESTHETIC AGENT STATU 03/24/2018 DAVY DUNNE CRIMINAL PROFILER Ot M54.5 LOW BACK PAIN 03/24/2018 DAVY DUNNE CRIMINAL PROFILER Ot R10.32 LEFT LOWER QUADRANT PAIN 03/24/2018 DAVY DUNNE CRIMINAL PROFILER Ot Z88.4 ALLERGY STATUS TO ANESTHETIC AGENT STATU 04/07/2018 FENECH DO, DEJUAN S Ot Z01.818 ENCOUNTER FOR OTHER PREPROCEDURAL EXAMIN 04/07/2018 FENECH DO, DEJUAN S Ot Z01.818 ENCOUNTER FOR OTHER PREPROCEDURAL EXAMIN 04/07/2018 FENECH DO, DEJUAN S Ot Z01.818 ENCOUNTER FOR OTHER PREPROCEDURAL EXAMIN 04/07/2018 FENECH DO, DEJUAN S Ot Z01.818 ENCOUNTER FOR OTHER PREPROCEDURAL EXAMIN 04/07/2018 PANKAJ COTTER CRIMINAL PROFILER Ot R07.9 CHEST PAIN, UNSPECIFIED 04/07/2018 PANKAJ COTTER CRIMINAL PROFILER Ot R42 DIZZINESS AND GIDDINESS 04/15/2018 FENECH DO, DEJUAN S Ot E66.9 OBESITY, UNSPECIFIED 04/15/2018 FENECH DO, DEJUAN S Ot N81.10 CYSTOCELE, UNSPECIFIED 04/15/2018 FENECH DO, DEJUAN S Ot N81.6 RECTOCELE 04/15/2018 FENECH DO, DEJUAN S Ot N84.0 POLYP OF CORPUS UTERI 04/15/2018 FENECH DO, DEJUAN S Ot N93.8 OTHER SPECIFIED ABNORMAL UTERINE AND VAG 04/15/2018 FENECH DO, DEJUAN S Ot Z68.32 BODY MASS INDEX (BMI) 32.0-32.9, ADULT 04/26/2018 FENECH DO, DEJUAN S Ot E66.9 OBESITY, UNSPECIFIED 04/26/2018 FENECH DO, DEJUAN S Ot N81.10 CYSTOCELE, UNSPECIFIED 04/26/2018 FENECH DO, DEJUAN S Ot N81.6 RECTOCELE 04/26/2018 FENECH DO, DEJUAN S Ot N84.0 POLYP OF CORPUS UTERI 04/26/2018 FENECH DO, DEJUAN S Ot N93.8 OTHER SPECIFIED ABNORMAL UTERINE AND VAG 04/26/2018 DEJUAN SANTOS DO Ot Z68.32 BODY MASS INDEX (BMI) 32.0-32.9, ADULT 07/19/2018 PANKAJ COTTER APRN Ot R07.9 CHEST PAIN, UNSPECIFIED 07/19/2018 PANKAJ COTTER APRN Ot R42 DIZZINESS AND GIDDINESS 07/19/2018 TERESSA JAIN MD Ot Z12.31 ENCNTR SCREEN MAMMOGRAM FOR MALIGNANT NE 07/19/2018 PANKAJ COTTER APRN Ot R22.1 LOCALIZED SWELLING, MASS AND LUMP, NECK 07/19/2018 PANKAJ COTTER APRN Ot Z00.00 ENCNTR FOR GENERAL ADULT MEDICAL EXAM W/ 07/19/2018 PANKAJ COTTER APRN Ot M79.662 PAIN IN LEFT LOWER LEG 07/19/2018 PANKAJ COTTER APRN Ot M79.605 PAIN IN LEFT LEG 07/19/2018 PANKAJ COTTER APRN Ot M79.89 OTHER SPECIFIED SOFT TISSUE DISORDERS 07/19/2018 PANKAJ COTTER APRN Ot N92.0 EXCESSIVE AND FREQUENT MENSTRUATION WITH 07/19/2018 PANKAJ COTTER APRN Ot N92.1 EXCESSIVE AND FREQUENT MENSTRUATION WITH 07/19/2018 PANKAJ COTTER APRN Ot R93.8 ABNORMAL FINDINGS ON DIAGNOSTIC IMAGING 07/28/2018 LY CUENCA B[employer] EDGER Ot 719.47 JOINT PAIN-ANKLE 07/28/2018 LY CUENCA [employer] Ot 793.7 NOSP (ABN) FINDINGS ON RADIOLOGICAL OT 07/28/2018 Ot R07.9 CHEST PAIN, UNSPECIFIED 07/28/2018 Ot R42 DIZZINESS AND GIDDINESS 11/05/2018 TERESSA JAIN MD Ot R73.01 IMPAIRED FASTING GLUCOSE 11/05/2018 TERESSA JAIN MD Ot Z00.00 ENCNTR FOR GENERAL ADULT MEDICAL EXAM W11/05/2018 TERESSA JAIN MD Ot Z79.899 OTHER HALFWAY (CURRENT) DRUG THERAPY 02/23/2019 DEJUAN SANTOS DO Ot Z01.818 ENCOUNTER FOR OTHER PREPROCEDURAL EXAMIN Procedures There is no data. Results Test Result Range Complete blood count (CBC) with automated white blood cell (WBC) differential - 03/17/17 08:32 Blood leukocytes automated count (number/volume) 4.4 10*3/uL 4.3-11.0 Blood erythrocytes automated count (number/volume) 4.60 10*6/uL 4.35-5.85 Venous blood hemoglobin measurement (mass/volume) 14.0 g/dL 11.5-16.0 Blood hematocrit (volume fraction) 39 % 35-52 Automated erythrocyte mean corpuscular volume 85 [foz_us] 80-99 Automated erythrocyte mean corpuscular hemoglobin (mass per erythrocyte) 30 pg 25-34 Automated erythrocyte mean corpuscular hemoglobin concentration measurement (mass/volume) 36 g/dL 32-36 Automated erythrocyte distribution width ratio 12.6 % 10.0- 14.5 Automated blood platelet count (count/volume) 282 10*3/uL 130-400 Automated blood platelet mean volume measurement 9.5 [foz_us] 7.4-10.4 Automated blood neutrophils/100 leukocytes 52 % 42-75 Automated blood lymphocytes/100 leukocytes 37 % 12-44 Blood monocytes/100 leukocytes 10 % 0-12 Automated blood eosinophils/100 leukocytes 1 % 0-10 Automated blood basophils/100 leukocytes 0 % 0-10 Blood neutrophils automated count (number/volume) 2.3 10*3 1.8-7.8 Blood lymphocytes automated count (number/volume) 1.6 10*3 1.0-4.0 Blood monocytes automated count (number/volume) 0.4 10*3 0.0- 1.0 Automated eosinophil count 0.1 10*3/uL 0.0-0.3 Automated blood basophil count (count/volume) 0.0 10*3/uL 0.0-0.1 Erythrocyte sedimentation rate by westergren method - 03/17/17 08:32 Erythrocyte sedimentation rate by westergren method 8 mm 0- 20 Comprehensive metabolic panel - 03/17/17 08:32 Serum or plasma sodium measurement (moles/volume) 141 mmol/L 135-145 Serum or plasma potassium measurement (moles/volume) 3.9 mmol/L 3.6-5.0 Serum or plasma chloride measurement (moles/volume) 111 mmol/L 98-107 Carbon dioxide 21 mmol/L 21-32 Serum or plasma anion gap determination (moles/volume) 9 mmol/L 5-14 Serum or plasma urea nitrogen measurement (mass/volume) 16 mg/dL 7-18 Serum or plasma creatinine measurement (mass/volume) 0.87 mg/dL 0.60-1.30 Serum or plasma urea nitrogen/creatinine mass ratio 18 NRG Serum or plasma creatinine measurement with calculation of estimated glomerular filtration rate > NRG Serum or plasma glucose measurement (mass/volume) 122 mg/dL 70-105 Serum or plasma calcium measurement (mass/volume) 9.1 mg/dL 8.5-10.1 Serum or plasma total bilirubin measurement (mass/volume) 0.5 mg/dL 0.1-1.0 Serum or plasma alkaline phosphatase measurement (enzymatic activity/volume) 67 U/L 40-136 Serum or plasma aspartate aminotransferase measurement (enzymatic activity/volume) 17 U/L 5-34 Serum or plasma alanine aminotransferase measurement (enzymatic activity/volume) 26 U/L 0-55 Serum or plasma protein measurement (mass/volume) 7.3 g/dL 6.4-8.2 Serum or plasma albumin measurement (mass/volume) 4.3 g/dL 3.2-4.5 Lipid 1996 panel - 03/17/17 08:32 Serum or plasma triglyceride measurement (mass/volume) 181 mg/dL <150 Serum or plasma cholesterol measurement (mass/volume) 214 mg/dL < 200 Serum or plasma cholesterol in HDL measurement (mass/volume) 36 mg/dL 40-60 Cholesterol in LDL [mass/volume] in serum or plasma by direct assay 120 mg/dL 1-129 Serum or plasma cholesterol in VLDL measurement (mass/volume) 36 mg/dL 5-40 THYROID STIMULATING HORMONE - 03/17/17 08:32 THYROID STIMULATING HORMONE 1.36 u[iU]/mL 0.35-4.94 Serum or plasma C reactive protein measurement (mass/volume) - 03/17/17 08:32 Serum or plasma C reactive protein measurement (mass/volume) 0.06 mg/dL 0.00-0.50 Complete blood count (CBC) with automated white blood cell (WBC) differential - 02/23/18 06:45 Blood leukocytes automated count (number/volume) 3.9 10*3/uL 4.3-11.0 Blood erythrocytes automated count (number/volume) 4.40 10*6/uL 4.35-5.85 Venous blood hemoglobin measurement (mass/volume) 13.4 g/dL 11.5-16.0 Blood hematocrit (volume fraction) 37 % 35-52 Automated erythrocyte mean corpuscular volume 84 [foz_us] 80-99 Automated erythrocyte mean corpuscular hemoglobin (mass per erythrocyte) 31 pg 25-34 Automated erythrocyte mean corpuscular hemoglobin concentration measurement (mass/volume) 36 g/dL 32-36 Automated erythrocyte distribution width ratio 13.0 % 10.0- 14.5 Automated blood platelet count (count/volume) 283 10*3/uL 130-400 Automated blood platelet mean volume measurement 9.6 [foz_us] 7.4-10.4 Automated blood neutrophils/100 leukocytes 53 % 42-75 Automated blood lymphocytes/100 leukocytes 36 % 12-44 Blood monocytes/100 leukocytes 9 % 0-12 Automated blood eosinophils/100 leukocytes 2 % 0-10 Automated blood basophils/100 leukocytes 0 % 0-10 Blood neutrophils automated count (number/volume) 2.1 10*3 1.8-7.8 Blood lymphocytes automated count (number/volume) 1.4 10*3 1.0-4.0 Blood monocytes automated count (number/volume) 0.4 10*3 0.0- 1.0 Automated eosinophil count 0.1 10*3/uL 0.0-0.3 Automated blood basophil count (count/volume) 0.0 10*3/uL 0.0-0.1 THYROID STIMULATING HORMONE - 03/01/18 15:50 THYROID STIMULATING HORMONE 1.44 u[iU]/mL 0.35-4.94 Complete urinalysis with reflex to culture - 03/18/18 10:35 Urine color determination YELLOW NRG Urine clarity determination CLEAR NRG Urine pH measurement by test strip 6.5 5-9 Specific gravity of urine by test strip 1.015 1.016-1.022 Urine protein assay by test strip, semi-quantitative NEGATIVE NEGATIVE Urine glucose detection by automated test strip NEGATIVE NEGATIVE Erythrocytes detection in urine sediment by light microscopy NEGATIVE NEGATIVE Urine ketones detection by automated test strip NEGATIVE NEGATIVE Urine nitrite detection by test strip NEGATIVE NEGATIVE Urine total bilirubin detection by test strip NEGATIVE NEGATIVE Urine urobilinogen measurement by automated test strip (mass/volume) NORMAL NORMAL Urine leukocyte esterase detection by dipstick 3+ NEGATIVE Automated urine sediment erythrocyte count by microscopy (number/high power field) NONE NRG Automated urine sediment leukocyte count by microscopy (number/high power field) [HPF] NRG Bacteria detection in urine sediment by light microscopy FEW NRG Squamous epithelial cells detection in urine sediment by light microscopy 10-25 NRG Crystals detection in urine sediment by light microscopy NONE NRG Casts detection in urine sediment by light microscopy NONE NRG Mucus detection in urine sediment by light microscopy NEGATIVE NRG Complete urinalysis with reflex to culture NO NRG Urine Trichomonas species detection by light microscopy FEW NRG Urine beta human chorionic gonadotropin (hCG) measurement - 03/18/18 10:35 Urine beta human chorionic gonadotropin (hCG) measurement NEGATIVE NEGATIVE Urine beta human chorionic gonadotropin (hCG) measurement - 04/15/18 08:19 Urine beta human chorionic gonadotropin (hCG) measurement NEGATIVE NEGATIVE Methicillin resistant Staphylococcus aureus (MRSA) screening culture - 04/15/18 08:25 Methicillin resistant Staphylococcus aureus (MRSA) screening culture NEG NRG Complete blood count (CBC) with automated white blood cell (WBC) differential - 04/15/18 09:34 Blood leukocytes automated count (number/volume) 4.0 10*3/uL 4.3-11.0 Blood erythrocytes automated count (number/volume) 4.22 10*6/uL 4.35-5.85 Venous blood hemoglobin measurement (mass/volume) 12.9 g/dL 11.5-16.0 Blood hematocrit (volume fraction) 36 % 35-52 Automated erythrocyte mean corpuscular volume 86 [foz_us] 80-99 Automated erythrocyte mean corpuscular hemoglobin (mass per erythrocyte) 31 pg 25-34 Automated erythrocyte mean corpuscular hemoglobin concentration measurement (mass/volume) 36 g/dL 32-36 Automated erythrocyte distribution width ratio 13.5 % 10.0- 14.5 Automated blood platelet count (count/volume) 240 10*3/uL 130-400 Automated blood platelet mean volume measurement 10.0 [foz_us] 7.4-10.4 Automated blood neutrophils/100 leukocytes 56 % 42-75 Automated blood lymphocytes/100 leukocytes 32 % 12-44 Blood monocytes/100 leukocytes 10 % 0-12 Automated blood eosinophils/100 leukocytes 3 % 0-10 Automated blood basophils/100 leukocytes 0 % 0-10 Blood neutrophils automated count (number/volume) 2.2 10*3 1.8-7.8 Blood lymphocytes automated count (number/volume) 1.3 10*3 1.0-4.0 Blood monocytes automated count (number/volume) 0.4 10*3 0.0- 1.0 Automated eosinophil count 0.1 10*3/uL 0.0-0.3 Automated blood basophil count (count/volume) 0.0 10*3/uL 0.0-0.1 Blood type T Indirect antibody screen panel - 04/15/18 09:34 ABO+Rh group OP NRG Transfusion band number [id number] NRG Blood group antibody screen NEGATIVE NRG Complete blood count (CBC) with automated white blood cell (WBC) differential - 11/03/18 07:35 Blood leukocytes automated count (number/volume) 4.7 10*3/uL 4.3-11.0 Blood erythrocytes automated count (number/volume) 4.77 10*6/uL 4.35-5.85 Venous blood hemoglobin measurement (mass/volume) 14.4 g/dL 11.5-16.0 Blood hematocrit (volume fraction) 41 % 35-52 Automated erythrocyte mean corpuscular volume 85 [foz_us] 80-99 Automated erythrocyte mean corpuscular hemoglobin (mass per erythrocyte) 30 pg 25-34 Automated erythrocyte mean corpuscular hemoglobin concentration measurement (mass/volume) 35 g/dL 32-36 Automated erythrocyte distribution width ratio 14.0 % 10.0- 14.5 Automated blood platelet count (count/volume) 291 10*3/uL 130-400 Automated blood platelet mean volume measurement 9.6 [foz_us] 7.4-10.4 Automated blood neutrophils/100 leukocytes 53 % 42-75 Automated blood lymphocytes/100 leukocytes 35 % 12-44 Blood monocytes/100 leukocytes 10 % 0-12 Automated blood eosinophils/100 leukocytes 2 % 0-10 Automated blood basophils/100 leukocytes 0 % 0-10 Blood neutrophils automated count (number/volume) 2.5 10*3 1.8-7.8 Blood lymphocytes automated count (number/volume) 1.6 10*3 1.0-4.0 Blood monocytes automated count (number/volume) 0.5 10*3 0.0- 1.0 Automated eosinophil count 0.1 10*3/uL 0.0-0.3 Automated blood basophil count (count/volume) 0.0 10*3/uL 0.0-0.1 Comprehensive metabolic panel - 11/03/18 07:35 Serum or plasma sodium measurement (moles/volume) 137 mmol/L 135-145 Serum or plasma potassium measurement (moles/volume) 3.9 mmol/L 3.6-5.0 Serum or plasma chloride measurement (moles/volume) 111 mmol/L 98-107 Carbon dioxide 19 mmol/L 21-32 Serum or plasma anion gap determination (moles/volume) 7 mmol/L 5-14 Serum or plasma urea nitrogen measurement (mass/volume) 13 mg/dL 7-18 Serum or plasma creatinine measurement (mass/volume) 0.79 mg/dL 0.60-1.30 Serum or plasma urea nitrogen/creatinine mass ratio 16 NRG Serum or plasma creatinine measurement with calculation of estimated glomerular filtration rate > NRG Serum or plasma glucose measurement (mass/volume) 123 mg/dL 70-105 Serum or plasma calcium measurement (mass/volume) 8.8 mg/dL 8.5-10.1 Serum or plasma total bilirubin measurement (mass/volume) 0.5 mg/dL 0.1-1.0 Serum or plasma alkaline phosphatase measurement (enzymatic activity/volume) 77 U/L 40-136 Serum or plasma aspartate aminotransferase measurement (enzymatic activity/volume) 22 U/L 5-34 Serum or plasma alanine aminotransferase measurement (enzymatic activity/volume) 33 U/L 0-55 Serum or plasma protein measurement (mass/volume) 7.1 g/dL 6.4-8.2 Serum or plasma albumin measurement (mass/volume) 4.3 g/dL 3.2-4.5 CALCIUM CORRECTED 8.6 mg/dL 8.5-10.1 Lipid 1996 panel - 11/03/18 07:35 Serum or plasma triglyceride measurement (mass/volume) 242 mg/dL <150 Serum or plasma cholesterol measurement (mass/volume) 208 mg/dL < 200 Serum or plasma cholesterol in HDL measurement (mass/volume) 35 mg/dL 40-60 Cholesterol in LDL [mass/volume] in serum or plasma by direct assay 128 mg/dL 1-129 Serum or plasma cholesterol in VLDL measurement (mass/volume) 48 mg/dL 5-40 THYROID STIMULATING HORMONE - 11/03/18 07:35 THYROID STIMULATING HORMONE 2.11 u[iU]/mL 0.35-4.94 Hemoglobin A1c - 11/03/18 07:35 Blood hemoglobin A1C measurement (mass/volume) 5.2 % 4.0-5.6 MEAN BLOOD GLUCOSE 103 % <=126 Methicillin resistant Staphylococcus aureus (MRSA) screening culture - 02/22/19 11:15 Methicillin resistant Staphylococcus aureus (MRSA) screening culture NEG NRG Encounters ACCT No. Visit Date/Time Discharge Status Pt. Type Provider Facility Loc./Unit Complaint [id number] 02/22/2019 11:26:00 02/22/2019 12:15:00 DIS Outpatient DANIELLE YAN DEJUAN Pimentel [facility] PREOP ABNORMAL UTERINE BLEEDING [id number] 11/03/2018 07:23:00 11/03/2018 23:59:59 CLS Outpatient TERESSA JAIN MD [facility] LAB Z00.00,Z79.899 [id number] 04/15/2018 08:12:00 04/15/2018 12:27:00 DIS Outpatient DANIELLE YAN DEJUAN Margarito [facility] SD AUB [id number] 04/07/2018 05:40:00 04/07/2018 13:08:00 DIS Outpatient DANIELLE YAN DEJUAN Margarito [facility] PREOP AUB [id number] 03/18/2018 10:18:00 03/18/2018 12:16:00 DIS Emergency DAVY DUNNE APRN [facility] ER LEFT FLANK PAIN [id number] 03/01/2018 15:34:00 03/01/2018 23:59:59 CLS Outpatient PANKAJ COTTER APRN [facility] RAD MENORRHENGIA,EXCESSIVE BLEEDING,MENSTRUAL IRRE [id number] 02/23/2018 06:34:00 02/23/2018 23:59:59 CLS Outpatient PANKAJ COTTER APRN [facility] LAB MENORRHAGIA [id number] 09/10/2017 15:02:00 09/10/2017 23:59:59 CLS Outpatient PANKAJ COTTER APRN [facility] RAD LEFT LEG SWELLING,PAIN [id number] 09/01/2017 15:02:00 09/01/2017 23:59:59 CLS Outpatient PANKAJ COTTER APRN [facility] RAD LT GARZON PAIN [id number] 03/17/2017 08:35:00 03/17/2017 23:59:59 CLS Preadmit PANKAJ COTTER APRN [facility] RAD NECK SWELLING [id number] 03/17/2017 08:25:00 03/17/2017 23:59:59 CLS Outpatient PANKAJ COTTER APRN [facility] LAB ROUTINE LABS [id number] 02/13/2017 07:28:00 02/13/2017 23:59:59 CLS Outpatient TERESSA JAIN MD [facility] RAD SCREENING [id number] 02/18/2016 09:00:00 02/18/2016 23:59:59 CLS Preadmit PANKAJ COTTER CRIMINAL PROFILER [facility] CARD CHEST PAIN, DIZZY,LIGHT HEADEDNESS [id number] 12/10/2015 06:55:00 02/17/2016 00:01:00 DIS Outpatient PANKAJ COTTER APRN [facility] CARD CHEST PAIN, DIZZY,LIGHT HEADEDNESS [id number] 05/25/2014 09:31:00 05/25/2014 23:59:59 CLS Outpatient LY CUENCA [facility] RAD RT ANKLE PAIN [id number] 02/22/2019 11:30:00 Document Registration [id number] 11/15/2015 14:51:00 Document Registration [id number] 01/18/2013 12:43:00 Document Registration [id number] 08/03/2012 07:52:00 Document Registration [id number] 02/07/2012 09:44:00 Document Registration [id number] 01/12/2012 14:40:00 Document Registration [id number] 01/06/2012 07:17:00 Document Registration 0000 08/31/2017 16:10:05 08/31/2017 23:59:59 CLS Outpatient Teressa Jain
[2019-03-03] MEDS: LACTATED RINGERS 1,000 ML IV PRN ×2 (07:07→08:30)
--- NOTE | 2019-03-03 07:12 | Progress Note-Pre Operative ---
Pre-Operative Progress Note H&P Reviewed The H&P was reviewed, patient examined and no changes noted. Date Seen by Provider: March 03, 2019 Time Seen by Provider: 07:05 Date H&P Reviewed: March 03, 2019 Time H&P Reviewed: 07:05 Pre-Operative Diagnosis: AUB, Menorrhagia DEJUAN SANTOS DO March 03, 2019 07:12
[2019-03-03] MEDS ORDERED: LACTATED RINGERS 1,000 ML IV SCH (07:16)
--- NOTE | 2019-03-03 07:19 | Discharge Inst-Women's Service ---
Discharge Inst-Women's Serv Depart Medication/Instructions New, Converted or Re-Newed RX: RX on Chart Consults/Follow Up Additional Follow Up: Yes Orders/Referrals Dr. Villavicencio in 7-10 days and in 8 weeks Activity Activity: Activity as Tolerated Driving Instructions: No Driving for 1 Week NO SMOKING: NO SMOKING Nothing Inside Vagina: No Douching, No Porter, No Tampons Diet Discharge Diet: No Restrictions Symptoms to Report to : Bleeding Excessive, Pain Increased, Fever Over 101 Degrees F, Vaginal Bleeding Increase, Questions/Concerns For Any Problems or Questions: Contact Your Physician Skin/Wound Care Infection Signs and Symptoms: Increased Redness, Foul Odor of Wound, Increased Drainage, Skin Itchy or Has a Rash, Increased Swelling, Temperature Above 101 F Operative Area Clean and Dry: Keep Incision Clean/Dry Stitches/Lisa/Dermabond: Dermabond, Care of Stitches Bathing Instructions: DEJUAN García DO March 03, 2019 07:19
[2019-03-03] MEDS ORDERED: DOCU100C37 PO (07:22)
[2019-03-03] MEDS ORDERED: HYDR-34 PO (07:22)
[2019-03-03] MEDS ORDERED: SIME80TA16 PO (07:22)
[2019-03-03] MEDS ORDERED: IBUP-844 PO (07:22)
[2019-03-03] MEDS ORDERED: ZOLPIDEM 5 MG (AMBIEN) TAB PO PRN (07:30)
[2019-03-03] MEDS ORDERED: ONDANSETRON 4 MG/2 ML (SDV) Z0FRAN IV PRN (07:30)
[2019-03-03] MEDS ORDERED: CHLORASEPTIC LOZENGE MM PRN (07:30)
[2019-03-03] MEDS ORDERED: ANTACID SUSP 30 ML UDC (MYLANTA) PO PRN (07:30)
[2019-03-03] MEDS ORDERED: SIMETHICONE 80 MG (MYLICON) CHEW PO PRN (07:30)
[2019-03-03] MEDS ORDERED: GLYCOPYRROLATE 0.2 MG/ML (ROBINUL) 2 ML VIAL ONE (08:53)
[2019-03-03] MEDS ORDERED: NEOSTIGMINE 1 MG/ML 5 ML SYRINGE ONE (08:53)
[2019-03-03] MEDS ORDERED: morphine INJ 10 MG/ML 1ML (SYR OR VIAL) ONE (09:29)
[2019-03-03] MEDS ORDERED: MEPERIDINE (DEMEROL) INJ 50 MG/ML IVP ONE (09:30)
[2019-03-03] MEDS ORDERED: ONDANSETRON 4 MG/2 ML (SDV) Z0FRAN IVP PRN (09:30)
[2019-03-03] MEDS ORDERED: morphine INJ 10 MG/ML 1ML (SYR OR VIAL) IVP ONE (09:30)
[2019-03-03] MEDS ORDERED: PROMETHAZINE INJ 25 MG/ML (PHENERGAN) AMP IVP ONE (09:30)
[2019-03-03] MEDS ORDERED: KETOROLAC 30 MG/ML VIAL ONE (09:45)
[2019-03-03] MEDS: KETOROLAC 30 MG/ML VIAL IV PRN ×2 (09:50→16:06)
--- NOTE | 2019-03-03 10:10 | NUR ---
WANDY RHOADES admitted to room , with an admitting diagnosis of post robotic hysterectomy, on from via bed, accompanied by recovery staff.WANDY RHOADES introduced to surroundings, call light, bed controls, phone, TV, temperature control, lights, meal times, smoking policy, visitor policy, side rail policy, bathrooms and showers. Patient Rights given to patient in the handbook. WANDY RHOADES verbalizes understanding that [facility] is not responsible for the loss or damage to any personal effects or valuables that are kept in the patients posession during their hospitalization. The following Patient Care Plans were discussed with the patient: Discharge Planning, pain management, post surgical care. WANDY RHOADES verbalizes understanding of Interdisciplinary Patient Education. Patient and/or family were informed about the Rapid Response Team and its purpose.
[2019-03-03] MEDS ORDERED: HYDROcodone/APAP 7.5 MG/325 MG (LORTAB, LORCET PLUS) TABLET PO ONE (10:43)
[2019-03-03] MEDS: HYDROcodone/APAP 7.5 MG/325 MG (LORTAB, LORCET PLUS) TABLET PO PRN ×2 (11:05→18:34)
--- NOTE | 2019-03-03 11:15 | NUR ---
Report from Chema Abdalla RN. This nurse assuming care of pt.
--- NOTE | 2019-03-03 12:28 | OPERATIVE REPORT ---
DATE OF SERVICE: PREOPERATIVE DIAGNOSIS: A 48-year-old female with abnormal uterine bleeding refractory to conservative management. POSTOPERATIVE DIAGNOSIS: A 48-year-old female with abnormal uterine bleeding refractory to conservative management. PROCEDURE: Robotic-assisted total laparoscopic hysterectomy with bilateral salpingectomy. SURGEON: Aaron Santos DO ANESTHESIA: General endotracheal. ESTIMATED BLOOD LOSS: 50 mL. URINE OUTPUT: 150 mL clear at the end of procedure. FLUIDS: 1200 mL of lactated Ringer solution. FINDINGS: Grossly normal appearing but slightly hyperemic and enlarged uterus, bilateral fallopian tubes, evidence of previous tubal ligation, grossly normal appearing bilateral ovaries and grossly normal appearing upper abdominal anatomy. SPECIMENS SENT: Uterus, bilateral fallopian tubes. INDICATIONS FOR PROCEDURE: Please see my preoperative H and P and note for complete details pertaining to the patient's workup and evaluation as well as conservative measures which were attempted to try to address her situation. All the patient's questions were answered in the preoperative area. We once again reviewed the risk of the procedure and after all of her questions were answered, consent was obtained, the patient was taken to the operating room. OPERATIVE REPORT IN DETAIL: Once in the operating room, anesthesia was found to be adequate. She was placed in the dorsal lithotomy position, prepped and draped in normal sterile fashion. A timeout was performed. Jasso catheter was placed using sterile technique. A weighted speculum was inserted in the patient's vagina. A right angle retractor was used to visualize the cervix. It was grasped at 12 o'clock position using long Allis clamp and 0 Vicryl suture was then placed in the anterior lip of the cervix and the Allis clamp was then removed. The suture was then used as my retraction point. I then gently sound the uterine cavity, depth was found to be 8 cm. I selected 8 cm Kiana uterine manipulator tip and a 3.5 cm colpotomy ring. Once this is assembled, I placed a Kiana uterine manipulator tip into the endometrium deploying the balloon and advanced the colpotomy ring around the vaginal fornix. Once this is in place, we removed all the other instruments from the patient's vagina, performed change of gloves and took my attention to the abdomen where infraumbilically I infiltrated this area using 0.25% Marcaine, making an 8 mm incision, directed Veress needle through the incision until intraperitoneal placement was confirmed using saline drop test. An opening pressure of 5 mmHg was noted. I proceeded to maximum pressure of 15 mmHg, at which point I removed the Veress needle and introduced an 8 mm blunt da Chilo camera trocar. Once this is in place, I am able to confirm intraperitoneal placement using the da Chilo laparoscope and there was no evidence of damage upon my entry. I had the patient placed in steep Trendelenburg, which allows me to visualize all of my findings as listed above. I placed two lateral trocars approximately 8 to 10 cm lateral to my infraumbilical trocar. The skin was infiltrated using 0.25% Marcaine, 8 mm incisions were made and the trocars were placed under direct visualization of laparoscope. Once the trocars were in place, I bring the da Chilo robot and docked in appropriate fashion, placing the vessel sealer in the left hand and monopolar patrick in the right hand, performed the following dissection bilaterally at the operative console. Starting at the uteroovarian ligament, bipolar cauterized and transected this using the vessel sealer. I then created a window in the mesosalpinx, taken this laterally and amputating the fallopian tube from the blood supply. The round ligament was then grasped using the vessel sealer, bipolar cauterized and transected. I then grasped the broad ligament, bipolar cauterized and transected this using the vessel sealer down to the level of the lower uterine segment, at which point I the anterior and posterior leaflets of the broad ligament. The anterior leaflet dissection was taken around the anterior vaginal fornix. Posterior leaflet was taken around to the posterior vaginal fornix. This allows me to skeletonize the uterine vessels laterally, which I then bipolar cauterized and transected using the vessel sealer. I then created a colpotomy at the 12 o'clock position, the colpotomy ring which was visualized in doing so. Using monopolar patrick, I took this circumferentially around the colpotomy ring, amputating the cervix away from the vaginal fornix. The cervix, uterus, bilateral fallopian tubes were then removed through the vagina. I then proceeded with closing the vaginal cuff using 2-0 Vicryl suture in a [id number] fashion to the uterosacral ligament and the lateral vaginal apices. I then closed the remainder of the vaginal cuff using 2-0 V-Loc in a running fashion, after which there was no active bleeding noted from any of my dissection planes. I then undocked the da Chilo robot and proceeded with the remainder of the case laparoscopically. I covered all of my planes of dissection using FloSeal hemostatic agent. I then had the patient taken out of steep Trendelenburg and removed the lateral trocars under direct visualization of the laparoscope. The infraumbilical trocar was left in place to release insufflation and introduced 10 mL of 0.25% Marcaine in the peritoneal cavity for postoperative pain management. Once this was done, I also removed this trocar as well and the skin reapproximated using 4-0 Monocryl in interrupted subcuticular stitches. Dermabond was applied to the incision and bandage was placed over the incisions as well. Jasso catheter was left in place. The patient tolerated the procedure well and was taken to recovery area in stable condition. Lap and sponge counts were correct at the end of the procedure. Instrument count was correct as well. Two grams of Ancef, 500 mg of Flagyl were given preoperatively for infection prophylaxis. Job ID: [id number] DocumentID: [id number] Dictated Date: 03/03/2019 09:38:45 Petroleum Inspector Supervisor Date: 03/03/2019 12:27:47 Dictated By: AARON SANTOS DO
--- NOTE | 2019-03-03 13:30 | NUR ---
Dc'd lopez - pt immediately wanted to attempt to void. Ambulated well - voided 50 ml. Up in chair x 20 minutes but back to bed due to discomfort. Pain 6.
[2019-03-03] MEDS: DOCUSATE SODIUM 100 MG (COLACE) CAP PO PRN (18:31)
--- NOTE | 2019-03-03 19:04 | NUR ---
Ambulating in hallway - tolerating well. Pain eased.
[2019-03-03] MEDS: IBUPROFEN 600 MG (MOTRIN) TAB PO PRN (21:15)
[2019-03-04 02:03] VITALS: BP 98/65
[2019-03-04] MEDS: HYDROcodone/APAP 7.5 MG/325 MG (LORTAB, LORCET PLUS) TABLET PO PRN ×2 (02:03→10:10)
[2019-03-04] MEDS: IBUPROFEN 600 MG (MOTRIN) TAB PO PRN (05:41)
--- NOTE | 2019-03-04 08:25 | NUR ---
Dr. Villavicencio here to see patient. New orders received.
--- NOTE | 2019-03-04 09:32 | Anesthesia-General Post-Op ---
General Patient Condition Mental Status/LOC: Same as Preop Cardiovascular: Satisfactory Nausea/Vomiting: Absent Respiratory: Satisfactory Pain: Controlled Complications: Absent Post Op Complications Complications None Follow Up Care/Instructions Patient Instructions None needed. Anesthesia/Patient Condition Patient Condition Patient is doing well, no complaints, stable vital signs, no apparent adverse anesthesia problems. No complications reported per nursing. GERSON TYLER CRNA March 04, 2019 09:32
[2019-03-04 10:08] VITALS: BP 128/67
--- NOTE | 2019-03-04 10:08 | NUR ---
AM shift assessment completed and vital signs obtained, see interventions. Plan of care reviewed with patient. Patient verbalizes understanding and questions answered. Scheduled Colace PO given. Lortab 2 PO given for patient's c/o pain rated 4/10. Patient denies any further needs or concerns at this time. Saline lock DC'd, tip intact.
[2019-03-04] MEDS: DOCUSATE SODIUM 100 MG (COLACE) CAP PO PRN (10:10)
--- NOTE | 2019-03-04 10:56 | NUR ---
Discharge instructions and medications reviewed with patient both written and verbally. Patient verbalizes understanding and questions answered. Written prescriptions given to patient.
--- NOTE | 2019-03-04 11:33 | NUR ---
Patient discharged at this time via wheelchair and accompanied down to awaiting private vehicle by Karis Pope RN. No signs or symptoms of distress noted.
== END 2019-03-04 11:33 | disposition home or self-care (01) ==
LOC: SDC 06:05 → WS 10:10 → SDC 03-04 11:33
PROVIDERS: ATTEND Obstetrics & Gynecology
DX: N72 Inflammatory disease of cervix uteri (principal); N80.0 Endometriosis of uterus; D25.1 Intramural leiomyoma of uterus; D25.0 Submucous leiomyoma of uterus; N93.9 Abnormal uterine and vaginal bleeding, unspecified; G43.909 Migraine, unspecified, not intractable, without status migrainosus; F41.9 Anxiety disorder, unspecified; R01.1 Cardiac murmur, unspecified; E66.9 Obesity, unspecified; Z68.34 Body mass index [BMI] 34.0-34.9, adult; Z79.899 Other long term (current) drug therapy
CPT/HCPCS: 36415; 84703; 85025; 86850; 86900; 86901; 88307; 94664

== ENCOUNTER → 2019-07-25 | Outpatient (CLI) | payer OTHER ==
[~2019-07-25] MED LIST changes: +DOCU100C37 PO; +HYDR-34 PO; +IBUP-844 PO; +SIME80TA16 PO
[2019-07-25 14:24] LABS: BASOPHILS % (AUTO) 0 % (0-10); EOSINOPHILS # (AUTO) 0.1 10^3/uL (0.0-0.3); EOSINOPHILS % (AUTO) 1 % (0-10); HEMATOCRIT 37 % (35-52); HEMOGLOBIN 13.4 G/DL (11.5-16.0); LYMPHOCYTES # (AUTO) 1.9 X 10^3 (1.0-4.0); LYMPHOCYTES % (AUTO) 39 % (12-44); MEAN CORPUSCULAR HEMOGLOBIN 30 PG (25-34); MEAN CORPUSCULAR HGB CONC 36 G/DL (32-36); MEAN CORPUSCULAR VOLUME 83 FL (80-99); MEAN PLATELET VOLUME 9.5 FL (7.4-10.4); MONOCYTES # (AUTO) 0.5 X 10^3 (0.0-1.0); MONOCYTES % (AUTO) 9 % (0-12); NEUTROPHILS # (AUTO) 2.5 X 10^3 (1.8-7.8); NEUTROPHILS % (AUTO) 51 % (42-75); PLATELET COUNT 285 10^3/uL (130-400); RED CELL DISTRIBUTION WIDTH 14.1 % (10.0-14.5); WHITE BLOOD COUNT 4.9 10^3/uL (4.3-11.0)
[2019-07-25 14:39] LABS: ALANINE AMINOTRANSFERASE 44 U/L (0-55); ALBUMIN 4.5 GM/DL (3.2-4.5); ALKALINE PHOSPHATASE 99 U/L (40-136); BILIRUBIN,TOTAL 0.5 MG/DL (0.1-1.0); BUN/CREATININE RATIO 11; CALCIUM 9.3 MG/DL (8.5-10.1); CARBON DIOXIDE 21 MMOL/L (21-32); CHLORIDE 110 MMOL/L (98-107); CREATININE SERUM 0.89 MG/DL (0.60-1.30); GFR ESTIMATED > 60; GLUCOSE 103 MG/DL (70-105); POTASSIUM 3.7 MMOL/L (3.6-5.0); SODIUM 139 MMOL/L (135-145); TOTAL PROTEIN 7.3 GM/DL (6.4-8.2)
[2019-07-25 15:38] LABS: ERYTHROCYTE SEDIMENTATION RATE 8 MM/HR (0-20)
== END ==
LOC: LAB 14:06
PROVIDERS: ATTEND Family Medicine
DX: E78.5 Hyperlipidemia, unspecified (principal); I10 Essential (primary) hypertension
CPT/HCPCS: 36415; 80053; 84443; 84484; 85025; 85652

== ENCOUNTER → 2019-08-16 | Outpatient (CLI) | payer OTHER ==
[~2019-08-16] VITALS: Ht 178 cm; Wt 96.0 kg
[~2019-08-16] MED LIST changes: +CATHETER FLUSH 10 ML SYR IV PRN; +REGADENOSON 0.4 MG/5 ML SYR (LEXISCAN) IV ONE
--- NOTE | 2019-08-16 14:52 | STRESS TEST ---
DATE OF SERVICE: 08/16/2019 RESTING AND POST REGADENOSON TECHNETIUM-99M TETROFOSMIN SPECT CT IMAGING ORDERING PHYSICIAN: Jaja Bowen APRN PRIMARY PHYSICIAN: Dr. Jain. OTHER PHYSICIAN: Dr. Fernandez. CLINICAL DIAGNOSES: Cardiomyopathy, hypertension. Baseline images were carried out after injection of 10.88 mCi of technetium-99m Tetrofosmin. This was followed by 0.4 mg regadenoson and 30.4 mCi of technetium-99m Tetrofosmin for stress imaging. The electrocardiogram showed sinus rhythm at baseline. It did not change significantly with regadenoson infusion. There was nonspecific ST abnormality and isolated premature atrial contractions throughout the study. Premature atrial contractions were infrequent. There was no significant ventricular or supraventricular tachycardia. Review of images at rest and following stress does not indicate any significant perfusion defects consistent with significant myocardial ischemia or infarction. Gated images show normal global left ventricular systolic function with normal regional wall motion. Left ventricular ejection fraction is calculated to be 60%. Left ventricular end diastolic volume is 48 mL. TID is absent (1.02). CONCLUSIONS: 1. No evidence of any significant myocardial ischemia or infarction study. 2. Normal regional wall motion. 3. Normal global left ventricular systolic function with a calculated ejection fraction of 60%. Job ID: [id number] DocumentID: [id number] Dictated Date: 08/16/2019 14:30:49 Harness Brusher Date: 08/16/2019 14:52:01 Dictated By: ANUEL FERNANDEZ MD, MA, FACP, FACC,
== END ==
LOC: CARD 07:31
PROVIDERS: ATTEND Nurse Practitioner Family
DX: I42.9 Cardiomyopathy, unspecified (principal); I10 Essential (primary) hypertension
CPT/HCPCS: 78452; 93017

== ENCOUNTER → 2020-02-20 | Outpatient (CLI) | payer OTHER ==
[~2020-02-20] MED LIST changes: -CATHETER FLUSH 10 ML SYR IV PRN; -REGADENOSON 0.4 MG/5 ML SYR (LEXISCAN) IV ONE
[2020-02-20 13:55] LABS: BASOPHILS % (AUTO) 0 % (0-10); EOSINOPHILS # (AUTO) 0.1 10^3/uL (0.0-0.3); EOSINOPHILS % (AUTO) 1 % (0-10); HEMATOCRIT 42 % (35-52); HEMOGLOBIN 14.6 G/DL (11.5-16.0); LYMPHOCYTES % (AUTO) 34 % (12-44); MEAN CORPUSCULAR HEMOGLOBIN 30 PG (25-34); MEAN CORPUSCULAR HGB CONC 35 G/DL (32-36); MEAN CORPUSCULAR VOLUME 84 FL (80-99); MEAN PLATELET VOLUME 9.5 FL (7.4-10.4); MONOCYTES # (AUTO) 0.4 X 10^3 (0.0-1.0); MONOCYTES % (AUTO) 7 % (0-12); NEUTROPHILS # (AUTO) 3.4 X 10^3 (1.8-7.8); NEUTROPHILS % (AUTO) 58 % (42-75); PLATELET COUNT 321 10^3/uL (130-400); RED CELL DISTRIBUTION WIDTH 13.4 % (10.0-14.5); WHITE BLOOD COUNT 5.9 10^3/uL (4.3-11.0)
[2020-02-20 14:22] LABS: ALANINE AMINOTRANSFERASE 46 U/L (0-55); ALBUMIN 4.5 GM/DL (3.2-4.5); ALKALINE PHOSPHATASE 104 U/L (40-136); BILIRUBIN,TOTAL 0.4 MG/DL (0.1-1.0); BUN/CREATININE RATIO 15; CALCIUM 9.3 MG/DL (8.5-10.1); CARBON DIOXIDE 22 MMOL/L (21-32); CHLORIDE 104 MMOL/L (98-107); CREATININE SERUM 0.84 MG/DL (0.60-1.30); GFR ESTIMATED > 60; GLUCOSE 169 MG/DL (70-105); SODIUM 136 MMOL/L (135-145); TOTAL PROTEIN 7.6 GM/DL (6.4-8.2)
== END ==
LOC: LAB 13:39
PROVIDERS: ATTEND Nurse Practitioner Family
DX: R73.09 Other abnormal glucose (principal); R53.81 Other malaise
CPT/HCPCS: 36415; 80053; 83036; 84443; 85025

== ENCOUNTER 2020-09-30 14:54 | Emergency (ER) | payer OTHER ==
[~2020-09-30] VITALS: Ht 170 cm; Wt 90.7 kg
[2020-09-30 14:55] VITALS: BP 153/96
[2020-09-30] MEDS ORDERED: CYCLOBENZAPRINE 10 MG (FLEXERIL) TAB PO STA (15:22)
[2020-09-30] MEDS ORDERED: CYCL10TA9 PO (15:25)
--- NOTE | 2020-09-30 15:27 | ED Upper Extremity ---
General Chief Complaint: Upper Extremity Stated Complaint: R ARM POPPED AND PAIN Nursing Triage Note: ARRIVED VIA AMB TO ROOM 06 WITH COMPLAINTS OF RIGHT ARM PAIN AFTER LIFTING A BUCKET OF WET TOWELS. STATES SHE TOOK ADVIL AT 1100. Nursing Sepsis Screen: No Definite Risk History of Present Illness Date Seen by Provider: Sep 30, 2020 Time Seen by Provider: 14:55 Initial Comments 50-year-old female presents for right trapezius and rhomboid pain. Sh e states that approximately 1030 this morning she was lifting a bucket that weighed 20 to 25 pounds, when she lifted it she felt and heard a pop in her right posterior shoulder. Since then she has been having pain in this region with intermittent tingling and paresthesias in her right arm. She denies any previous history of injuries or surgeries to her neck, right shoulder or right upper extremity. She took 2 Aleve at 11:00 with minimal improvement in her symptoms. She does report taking a hot shower helped with her symptoms. Onset: this morning Pain/Injury Location: right shoulder, right arm Method of Injury: other (lifting 20 lb bucket) Modifying Factors: Improves With Rest Allergies and Home Medications Allergies Coded Allergies: procaine (Verified Allergy, Severe, UNABLE TO TAKE D/T VSD, 04/07/18) Home Medications Alprazolam 0.5 Mg Tablet, 0.5 MG PO Q8H PRN for ANXIETY, (Reported) Amitriptyline HCl 50 Mg Tablet, 50 MG PO HS, (Reported) Atorvastatin Calcium 20 Mg Tablet, 20 MG PO HS, (Reported) Cyclobenzaprine HCl 10 Mg Tablet, 10 MG PO Q8H PRN for SPASMS Prescribed by: NAEL CLEMENTS on 09/30/20 1525 Docusate Sodium 100 Mg Capsule, 100 MG PO BID PRN for CONSTIPATION-1ST LINE Prescribed by: DEJUAN SANTOS on 03/03/19721 Hydrocodone Bit/Acetaminophen 1 Ea Tablet, 2 EA PO Q6H PRN for Pain-See Instruc tions Prescribed by: DEJUAN SANTOS on 03/03/19721 Ibuprofen 600 Mg Tablet, 600 MG PO Q6H PRN for PAIN-MODERATE Prescribed by: DEJUAN SANTOS on 03/03/19721 Simethicone 80 Mg Tab.chew, 40 MG PO TID PRN for INDIGESTION 2ND LINE Prescribed by: DEJUAN SANTOS on 03/03/1922 Topiramate 25 Mg Tablet, 25 MG PO BID, (Reported) Patient Home Medication List Home Medication List Reviewed: Yes Review of Systems Constitutional: no symptoms reported, see HPI Musculoskeletal: muscle pain (Right trapezius and rhomboid); No neck pain All Other Systems Reviewed Negative Unless Noted: Yes Past Snghwqp-Hbkpgz-Aqzcvc Hx Past Med/Social Hx: Reviewed Nursing Past Med/Soc Hx Patient Social History Alcohol Use: Rarely Uses Alcohol Beverage of Choice: Beer, Other Recreational Drug Use: No Smoking Status: Never a Smoker 2nd Hand Smoke Exposure: No Recent Foreign Travel: No Contact w/Someone Who Travel: No Recent Infectious Disease Expo: No Recent Hopitalizations: No Immunizations Up To Date Tetanus Booster (TDap): Unknown Date of Pneumonia Vaccine: Jul 23, 2015 Date of Influenza Vaccine: Jul 27, 2017 Seasonal Allergies Seasonal Allergies: No Past Medical History Surgeries: Yes (BREAST REDUCTION, DENTAL, D&C,) Appendectomy Respiratory: No Currently Using CPAP: No Currently Using BIPAP: No 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) Neurological: Yes Headaches /Migraines Reproductive Disorders: Yes (AUB) Female Reproductive Disorders: Menstrual Problems, Ovarian Cyst Sexually Transmitted Disease: No HIV/AIDS: No Genitourinary: No Gastrointestinal: No Musculoskeletal: No Endocrine: No HEENT: No Loss of Vision: Bilateral Hearing Impairment: Denies Cancer: No Psychosocial: Yes Anxiety Integumentary: No Blood Disorders: No Adverse Reaction/Blood Tranf: No (N/A) Family Medical History Cardiovascular disease 19 FATHER FH: skin cancer 19 MOTHER Hypertension 19 FATHER Myocardial infarction 19 FATHER Physical Exam Vital Signs Vital Signs - First Documented 09/30/20 14:55 Temp 37.0 Pulse 92 Resp 16 B/P (MAP) 153/96 (115) Pulse Ox 97 O2 Delivery Room Air Capillary Refill : Less Than 3 Seconds Height, Weight, BMI Height: 5'7.00" Weight: 221lbs. 0.0oz. 100.865227db; 31.00 BMI Method:Stated General Appearance: WD/WN, no apparent distress Neck: full range of motion, supple, normal inspection, tender lateral (Right trapezius), other (Neurovascular status intact bilateral upper extremities.) Cardiovascular: normal peripheral pulses, regular rate, rhythm Respiratory: chest non-tender, lungs clear Gastrointestinal: normal bowel sounds, non tender, soft Shoulder: normal inspection, normal ROM; No bone tenderness; soft tissue tenderness (Right trapezius) Elbow/Forearm: normal inspection, non-tender, no evidence of injury, normal ROM, Right Hand: normal inspection, non-tender, no evidence of injury, normal ROM, Right Neurologic/Tendon: normal sensation, normal motor functions, normal tendon functions Neurologic/Psychiatric: no motor/sensory deficits, alert, normal mood/affect, oriented x 3 Skin: normal color, warm/dry Right shoulder full range of motion, negative apprehension maneuver, negative impingement, power 5/5 biceps, triceps and external rotators. Progress/Results/Core Measures Results/Orders My Orders Orders - NAEL CLEMENTS Cyclobenzaprine Tablet (Flexeril Tablet) (09/30/20 15:22) Vital Signs/I&O 09/30/20 14:55 Temp 37.0 Pulse 92 Resp 16 B/P (MAP) 153/96 (115) Pulse Ox 97 O2 Delivery Room Air Blood Pressure Mean: 115 Departure Impression Primary Impression: Strain of right trapezius muscle Qualified Codes: S46.811A - Strain of other muscles, fascia and tendons at shoulder and upper arm level, right arm, initial encounter Additional Impression: Rhomboid muscle strain Qualified Codes: S29.012A - Strain of muscle and tendon of back wall of thorax, initial encounter Disposition: 01 HOME, SELF-CARE Condition: Improved Departure-Patient Inst. Decision time for Depature: 15:20 Referrals: TERESSA ROJAS MD (PCP/Family) Primary Care Physician Patient Instructions: Cervical Muscle Strain (DC) Add. Discharge Instructions: Alternate between heat and ice to your right upper back and neck for 20 minutes at a time. Gentle range of motion to your right shoulder. Use your right arm as tolerated, avoid activities that cause pain. Take Aleve 2 tablets, every 12 hours. Take the Flexeril, muscle relaxant, 1 every 8 hours as needed. Follow-up with Dr. ROJAS in 6 to 10 days if symptoms are not improving or wor sen. Return to the emergency department for new, urgent healthcare needs. All discharge instructions reviewed with patient and/or family. Voiced understanding. Scripts Cyclobenzaprine HCl (Cyclobenzaprine HCl) 10 Mg Tablet 10 MG PO Q8H PRN for SPASMS, #15 TAB 0 Refills Prov: NAEL CLEMENTS 09/30/20 NAEL CLEMENTS Sep 30, 2020 15:27
== END 2020-09-30 15:35 | disposition home or self-care (01) ==
LOC: EDUNIT# 14:54 → ER 14:56
DX: S46.811A Strain of other muscles, fascia and tendons at shoulder and upper arm level, right arm, initial encounter (principal); S29.012A Strain of muscle and tendon of back wall of thorax, initial encounter; F41.9 Anxiety disorder, unspecified; Z88.8 Allergy status to other drugs, medicaments and biological substances; Z82.49 Family history of ischemic heart disease and other diseases of the circulatory system; Z80.8 Family history of malignant neoplasm of other organs or systems; X50.0XXA Overexertion from strenuous movement or load, initial encounter
CPT/HCPCS: 99283

== ENCOUNTER → 2020-10-11 | Outpatient (CLI) | payer OTHER ==
[~2020-10-11] MED LIST changes: +CITA20TA12 PO; +CYCL10TA9 PO; +METF-397 PO; +TOPI50TA13 PO
--- NOTE | 2020-10-11 12:50 | Diagnostic Imaging Report ---
INDICATION: Shoulder pain status post injury. COMPARISON: None. FINDINGS: Multiple radiographic views of the right shoulder were obtained. There is no fracture, dislocation, or other acute bony abnormality identified. The soft tissues appear unremarkable. No radiopaque foreign bodies identified. The visualized portions of the right lung are clear. IMPRESSION: No acute fractures or dislocations of the right shoulder. Dictated by: Dictated on workstation # [id number]
== END ==
LOC: RAD 11:42
PROVIDERS: ATTEND Family Medicine
DX: M25.511 Pain in right shoulder (principal); Z87.828 Personal history of other (healed) physical injury and trauma
CPT/HCPCS: 73030

== ENCOUNTER 2020-10-16 05:39 | Outpatient (RCR) | payer OTHER ==
[~2020-10-16] VITALS: Ht 170.2 cm; Wt 95.5 kg
[2020-10-17] MEDS ORDERED: OXYC-471 PO (12:11)
== END 2020-10-16 15:50 | disposition home or self-care (01) ==
LOC: PREOP 05:39
PROVIDERS: ATTEND Orthopaedic Surgery
DX: Z01.812 Encounter for preprocedural laboratory examination (principal); S43.431A Superior glenoid labrum lesion of right shoulder, initial encounter; Z20.828 Contact with and (suspected) exposure to other viral communicable diseases
CPT/HCPCS: 87635

== ENCOUNTER 2020-10-17 07:01 | Day surgery (SDC) | payer OTHER ==
--- NOTE | 2020-10-16 05:35 | HISTORY AND PHYSICAL ---
DATE OF SERVICE: ADMISSION HISTORY AND PHYSICAL DATE OF ADMISSION: 10/17/2020. This will be for outpatient surgery on 10/17/2020 for right shoulder arthroscopy and biceps tenotomy. HISTORY OF PRESENT ILLNESS: The patient is a 50-year-old right hand dominant female with complaints of a 3-week history of right shoulder pain. She injured her right shoulder, when she was picking up a heavy bucket of wet towels. She had immediate shoulder pain and has had no improvement with injections, activity modifications and customer care representative since then. She reports no prior history of shoulder problems. She does report some radicular type symptoms, but has no neck pain and no paresthesias. Due to functional impairment and failure to improve with conservative measures, the patient elected to proceed with surgical intervention. REVIEW OF SYSTEMS: No chest pain, no shortness of breath and no dysuria. PAST MEDICAL HISTORY: Anxiety disorder, depression, diabetes type 2, migraines, hyperlipidemia, insomnia, hearing loss and myalgia. PAST SURGICAL HISTORY: Appendectomy and hysterectomy. FAMILY HISTORY: Significant for small cell lung carcinoma, coronary artery disease and hypertension. PRIMARY CARE PROVIDER: Dr. Jain. MEDICATIONS: Dexilant, topiramate, amitriptyline, metformin, atorvastatin, promethazine, alprazolam and Celexa. ALLERGIES: No known drug allergies. SOCIAL HISTORY: The patient drinks alcohol socially. Denies tobacco use. RADIOGRAPHS: Reveal no acute or chronic change of the shoulder. PHYSICAL EXAMINATION: GENERAL: The patient is well-developed, well-nourished, in no acute distress. HEENT: Normocephalic and atraumatic. Pupils are equal, round and reactive to light. Oropharynx is clear. NECK: Supple and no lymphadenopathy. LUNGS: Clear to auscultation bilaterally. HEART: Regular rate and rhythm. ABDOMEN: Soft, nontender and nondistended. EXTREMITIES: The patient has negative Spurling's with intact sensation throughout the right upper extremity. No gross weakness is noted throughout her major muscle groups in the right upper extremity. She has a markedly positive Fulton's maneuver, which reproduces her symptoms, markedly positive apprehension, relieved with relocation and crepitus with glenohumeral rotation. Mildly positive Neer's and Hawkin sign. IMPRESSION: Right shoulder SLAP tear. PLAN: Right shoulder arthroscopy with biceps tenotomy. The risks, benefits, options, ramifications and recovery were discussed at length with the patient. She understands and wishes to proceed. Job ID: [id number] DocumentID: [id number] Dictated Date: 10/15/2020 10:20:26 Car Sweeper Date: 10/15/2020 10:32:35 Dictated By: DEJUAN GOMEZ MD
[2020-10-17] VITALS (12 sets, daily range): BP systolic 130–148; BP diastolic 82–97
[~2020-10-17] VITALS: Ht 170.7 cm; Wt 95.5 kg
[2020-10-17] MEDS ORDERED: ceFAZolin INJECTION 1,000 MG in WATER (STERILE) FOR INJECTION 10 ML IV ONE (07:30)
--- NOTE | 2020-10-17 07:35 | Progress Note-Pre Operative ---
Pre-Operative Progress Note H&P Reviewed The H&P was reviewed, patient examined and no changes noted. Date Seen by Provider: Oct 17, 2020 Time Seen by Provider: 07:35 Date H&P Reviewed: Oct 17, 2020 Time H&P Reviewed: 07:35 Pre-Operative Diagnosis: right shoulder SLAP tear DEJUAN GOMEZ MD Oct 17, 2020 07:35
--- NOTE | 2020-10-17 07:36 | Progress Note-Post Operative ---
Post-Operative Progess Note Surgeon (s)/High School Drafting Teacher (s) Surgeon DEJUAN GOMEZ MD High School Drafting Teacher: Geovanny Harmon Pre-Operative Diagnosis right shoulder SLAP tear Post-Operative Diagnosis right shoulder rotator cuff, SLAP and labral tears Procedure & Operative Findings Date of Procedure 10/17/20 Procedure Performed/Findings right shoulder arthroscopic biceps tenotomy, labral debridement, acromioplasty and open rotator cuff repair Anesthesia Type GETA Estimated Blood Loss Estimated blood loss (mL): minimal Specimens/Packing Specimens Removed none Packing: none DEJUAN GOMEZ MD Oct 17, 2020 07:36
[2020-10-17] MEDS ORDERED: oxyCODONE/APAP 5/325MG (PERCOCET 5) TABLET PO PRN (07:45)
[2020-10-17] MEDS: LACTATED RINGERS 1,000 ML IV PRN ×2 (07:50→09:52)
[2020-10-17] MEDS ORDERED: morphine PF (DURAMORPH) 10 MG/10 ML AMP ONE (07:56)
[2020-10-17] MEDS ORDERED: BUPIVACAINE 0.25% 30 ML (SENSORCAINE) VIAL ONE (07:57)
[2020-10-17] MEDS ORDERED: ROCURONIUM 10 MG/ML 5 ML SYRINGE IV ONE (08:39)
[2020-10-17] MEDS ORDERED: ONDANSETRON 4 MG/2 ML (SDV) Z0FRAN ONE (08:39)
[2020-10-17] MEDS ORDERED: fentaNYL INJECTION 100 MCG/2 ML AMP ONE (08:39)
[2020-10-17] MEDS ORDERED: proPOfol 200 MG/20 ML (DIPRIVAN) VIAL IV ONE (08:39)
[2020-10-17] MEDS ORDERED: MIDAZOLAM 2 MG/2 ML (VERSED) VIAL ONE (08:40)
[2020-10-17] MEDS ORDERED: SEVOFLURANE (ULTANE) 15 ML INHAL SOLN ONE ×3 (09:07→09:38)
[2020-10-17] MEDS ORDERED: NEOSTIGMINE 3 MG/3 ML VIAL ONE (09:08)
[2020-10-17] MEDS ORDERED: GLYCOPYRROLATE 0.2 MG/ML (ROBINUL) 2 ML VIAL ONE (09:08)
[2020-10-17] MEDS ORDERED: PHENYLEPHRINE 100 MCG/ML 10 ML (ANESTHESIA) SYR ONE (09:34)
[2020-10-17] MEDS ORDERED: ONDANSETRON 4 MG/2 ML (SDV) Z0FRAN IVP PRN (10:15)
[2020-10-17] MEDS ORDERED: HYDROmorphone 2 MG/ML VIAL (DILAUDID) IV ONE (10:15)
--- NOTE | 2020-10-17 10:55 | NUR ---
TO AMB SURG FROM PAR PER CART. RATES RIGHT SHOULDER PAIN 10. DROWSY. CMS CHECKS WNL TO RIGHT ARM/HAND. DRESSING D/I TO RIGHT SHOULDER, ARM IN SLING, ICE PACK TO SHOULDER. PO FLUIDS AND CRACKERS PROVIDED.
--- NOTE | 2020-10-17 11:30 | NUR ---
MORE ALERT NOW. PERCOCET 5/325 MG, ONE TAB, GIVEN PO FOR C/O RIGHT SHOULDER PAIN RATED 10.
[2020-10-17] MEDS ORDERED: OXYC-471 PO (12:11)
--- NOTE | 2020-10-17 12:15 | NUR ---
RESTING QUIETLY IN BED, EYES CLOSED.
--- NOTE | 2020-10-17 12:45 | NUR ---
AWAKE, RATES RIGHT SHOULDER PAIN 5. CMS CHECKS REMAIN WNL. UP WITH ASSIST TO BR, GAIT STEADY, THEN BACK TO ROOM FOR DISMISSAL.
--- NOTE | 2020-10-17 13:27 | OPERATIVE REPORT ---
DATE OF SERVICE: 10/17/2020 PREOPERATIVE DIAGNOSIS: Right shoulder SLAP tear. POSTOPERATIVE DIAGNOSES: 1. Right shoulder rotator cuff tear. 2. Right shoulder SLAP tear. 3. Right shoulder labral tear. PROCEDURES: 1. Right shoulder open rotator cuff repair. 2. Right shoulder arthroscopic biceps tenotomy. 3. Right shoulder arthroscopic labral debridement. 4. Right shoulder arthroscopic acromioplasty. SURGEON: Aaron Gomez MD ASSEMBLER [employer]AM [employer] G[employer] TURBINE: Geovanny Harmon, who assisted throughout the procedure and closed the incisions. ANESTHESIA: General endotracheal by Junior Arango CRNA. ESTIMATED BLOOD LOSS: Minimal. DRAINS: None. COMPLICATIONS: None. POSTOPERATIVE PLAN: Sling wear and passive range of motion for 4 weeks. The patient was transferred to the recovery room awake and stable condition. STATEMENT OF MEDICAL NECESSITY: The patient is a 50-year-old right hand dominant female who injured her right shoulder when she was lifting about 3 weeks ago. Since then she has had difficulty with raising her arm. She had marked pain. She tried an injection as well as activity modifications without relief. On exam, she had a positive Phillips's maneuver, positive Neer's and positive Hawkin sign. Pain with resisted abduction and external rotation. It was felt that she likely had injured her biceps anchor and labrum and due to functional impairment and inability to improve with conservative measures, the patient elected to proceed with surgical intervention. Examination under anesthesia revealed forward elevation of 170 degrees, external rotation of 90 degrees and internal rotation of 80 degrees. Arthroscopic findings demonstrated a full thickness anterior supraspinatus tear approximately 2 x 1 cm in size. The biceps sling was disrupted from the supraspinatus side and there was a type 2 SLAP tear and there was an anterior labral flap at the 3 o'clock position, but the remaining labrum was intact. Subacromial space demonstrated dense bursitis with slope in the anterior lateral acromion. DESCRIPTION OF PROCEDURE: After risks and benefits of procedure were discussed and questions were answered, informed consent was signed and placed on chart, the operative site was confirmed in the preoperative holding area initialed by the surgeon. The patient was then transferred to the operating room and after adequate levels of general endotracheal anesthetic were obtained, a timeout was called, confirming the operative site. Examination under anesthesia was performed with above findings noted. The right shoulder and upper extremity were prepped and draped in the usual sterile fashion. Shoulder joint was injected with 20 mL of fluid and standard posterior portal was placed. Under direct visualization, anterior portal was created in the interval between biceps, subscapularis and glenoid. The labrum was carefully probed with a type 2 SLAP tear was found and an anterior labral tear at the 3 o'clock position. The rotator cuff was probed and found to have a 2 x 1 cm tear anteriorly and the biceps sling was disrupted creating biceps instability. The biceps anchor was released; the stump was debrided with a shaver. The anterior labral flap was debrided with a shaver as well. The scope was redirected into the subacromial space. Lateral portal was created. Bursectomy was performed and the acromion was planed to a flat type 1 acromion. Lateral portal was then extended. The deltoid was split in line with its fibers leaving attached to the acromion. The rotator cuff tear was mobilized. Excellent tissue quality was noted. This was repaired to its knik insertion site with two corkscrew anchors in a modified Eloy-Nick repair. An excellent repair was obtained with no undue tension noted with the arm at the side. The wound was copiously irrigated. The deltoid was repaired in a [id number] fashion using #2 FiberWire in [id number] interrupted fashion. The wound was further irrigated, 3-0 Vicryl was used to reapproximate subcutaneous tissue. The incision was closed with 4-0 nylon running alternating horizontal mattress fashion. The portal sites were closed with 4-0 nylon in simple interrupted fashion. Shoulder joint was injected with Duramorph. Port sites were infiltrated with plain Marcaine as was the incision. A soft dressing and sling were applied, and the patient was transferred to the recovery room, awake and in stable condition. Job ID: [id number] DocumentID: [id number] Dictated Date: 10/17/2020 10:11:57 Health Unit Coordinator Date: 10/17/2020 13:27:27 Dictated By: AARON GOMEZ MD
--- NOTE | 2020-10-18 14:39 | Anesthesia-General Post-Op ---
General Patient Condition Mental Status/LOC: Same as Preop Cardiovascular: Satisfactory Nausea/Vomiting: Absent Respiratory: Satisfactory Pain: Controlled Complications: Absent Post Op Complications Complications None Follow Up Care/Instructions Patient Instructions None needed. Anesthesia/Patient Condition Patient Condition Patient is doing well, no complaints, stable vital signs, no apparent adverse anesthesia problems. No complications reported per nursing. D/C home per [facility] Criteria: Yes RIZWAN MCCRACKEN CRNA Oct 18, 2020 14:38
== END 2020-10-17 13:07 | disposition home or self-care (01) ==
LOC: SDC 07:01
PROVIDERS: ATTEND Orthopaedic Surgery
DX: M75.101 Unspecified rotator cuff tear or rupture of right shoulder, not specified as traumatic (principal); S43.431A Superior glenoid labrum lesion of right shoulder, initial encounter; F41.9 Anxiety disorder, unspecified; F32.9 Major depressive disorder, single episode, unspecified; E11.9 Type 2 diabetes mellitus without complications; G43.909 Migraine, unspecified, not intractable, without status migrainosus; E78.5 Hyperlipidemia, unspecified; G47.00 Insomnia, unspecified; E66.9 Obesity, unspecified; Z68.32 Body mass index [BMI] 32.0-32.9, adult; Z79.899 Other long term (current) drug therapy; Z79.84 Long term (current) use of oral hypoglycemic drugs; Z90.710 Acquired absence of both cervix and uterus; Z88.4 Allergy status to anesthetic agent; Z80.1 Family history of malignant neoplasm of trachea, bronchus and lung
CPT/HCPCS: 23412; 29822; 29826; 82962; 87081; C1713

== ENCOUNTER 2021-01-11 12:40 | Outpatient (RCR) | payer OTHER ==
[~2021-01-11 12:40] MED LIST changes: +ESCI-2 PO; -ESCI10TA55 PO; +OXYC1TAB11 PO
== END 2021-01-16 | disposition home or self-care (01) ==
PROVIDERS: ATTEND Orthopaedic Surgery
DX: S43.431D Superior glenoid labrum lesion of right shoulder, subsequent encounter (principal)

== ENCOUNTER 2021-01-24 07:45 | Outpatient (CLI) | payer OTHER ==
--- NOTE | 2021-01-24 14:43 | Diagnostic Imaging Report ---
PROCEDURE: MRI right joint upper extremity without contrast. TECHNIQUE: Multiplanar, multisequence non contrast-enhanced MRI of the right upper extremity was accomplished. INDICATION: Right shoulder surgery in October 2020 with re-injury one month ago. Right shoulder pain and decreased range of motion. COMPARISON: Radiographs from 10/11/2020. FINDINGS: No acute fracture is seen in the right shoulder. There is motion artifact on multiple sequences. There are postsurgical changes in the right shoulder with anchor noted at the anterior greater tuberosity. There is susceptibility artifact and scarring at the anterior soft tissues. Hardware results in suboptimal evaluation of the adjacent anatomy. There is a small right shoulder joint effusion. There is a small low-grade partial-thickness tear at the insertion of the infraspinatus tendon. The supraspinatus tendon appears markedly thinned anteriorly. There could be some partial tearing in this region, but this is obscured by artifact. No large full-thickness tear is seen. The teres minor tendon is intact. The subscapularis tendon appears intact. There is no significant retraction of the tendons and there is no muscular atrophy. The long head of the biceps tendon is torn, and appears retracted beyond the bicipital groove. The glenoid labrum is suboptimally evaluated in the absence of intra-articular contrast. No para labral cyst is seen. The acromion has a slightly curved undersurface without hooking. The coracoclavicular and coracoacromial ligaments are intact. Soft tissues about the right shoulder are otherwise unremarkable. IMPRESSION: 1. Postsurgical changes in the right shoulder. There is at least partial thickness tearing of the supraspinatus tendon but this is obscured by artifact. No large full-thickness tear is seen. There is no muscular atrophy. 2. Small low-grade partial-thickness tear of the infraspinatus tendon. 3. Tear of the long head of the biceps tendon, retracted beyond the bicipital groove. Dictated by: Dictated on workstation # [id number]
== END 2021-01-24 23:59 | disposition home or self-care (01) ==
LOC: RAD 07:45
PROVIDERS: ATTEND Orthopaedic Surgery
DX: S46.111A Strain of muscle, fascia and tendon of long head of biceps, right arm, initial encounter (principal); M75.121 Complete rotator cuff tear or rupture of right shoulder, not specified as traumatic; Z98.890 Other specified postprocedural states; X58.XXXA Exposure to other specified factors, initial encounter
CPT/HCPCS: 73221

== ENCOUNTER 2021-02-22 12:56 | Outpatient (RCR) | payer OTHER | END 2021-03-12 16:20 | disposition home or self-care (01) | PROVIDERS: ATTEND Orthopaedic Surgery | DX: S43.431A Superior glenoid labrum lesion of right shoulder, initial encounter (principal); Z87.81 Personal history of (healed) traumatic fracture; Z98.890 Other specified postprocedural states | CPT/HCPCS: 97110; G0283 ==

== ENCOUNTER → 2021-08-07 | Outpatient (CLI) | payer BC ==
--- NOTE | 2021-08-07 14:41 | Diagnostic Imaging Report ---
EXAMINATION: Magnetic resonance imaging of the right shoulder without contrast. DATE: August 07, 2021. COMPARISON: MRI right shoulder January 24, 2021. HISTORY: 51-year-old female, right shoulder pain for 2 weeks. No known injury. TECHNIQUE: Magnetic Resonance Imaging sequences were performed of the shoulder without contrast. FINDINGS: ROTATOR CUFF, LIGAMENTS, TENDONS, AND MUSCLES: There is an anchor in the superior humeral head in the region of the anterior aspect of the supraspinatus tendon insertion which may relate to prior rotator cuff tendon repair. There is no evidence of failure of the repair. The additional rotator cuff tendons are also intact. There is normal rotator cuff muscle bulk and signal. LONG HEAD OF BICEPS: The biceps labral attachment and long head of the biceps tendon is intact. The long head of the biceps tendon is normally positioned within the bicipital groove. GLENOHUMERAL JOINT: The humeral head is well positioned relative to the glenoid. The labrum is grossly intact. There is no identified paralabral cyst. The articular cartilage is grossly intact. There is no joint effusion. ACROMIOCLAVICULAR JOINT: The acromioclavicular joint is normally aligned. The coracoclavicular and coracoacromial ligaments are intact. There are no degenerative changes of the acromioclavicular joint. BONE: There is no os acromiale. There is no Hill-Sachs deformity. There is no acute fracture, bone contusion, or evidence of osteonecrosis. BURSAE AND SOFT TISSUES: The bursae and soft tissue surrounding the shoulder are unremarkable. IMPRESSION: 1. [place] in the superior humeral head in the region of the anterior aspect of the supraspinatus tendon insertion likely reflecting prior rotator cuff tendon repair without evidence of failure of the repair. The additional rotator cuff tendons are intact. 2. Intact proximal long head of the biceps tendon. 3. Intact acromioclavicular joint. 4. Grossly intact labrum and unremarkable additional glenohumeral joint assessment. 5. No acute fracture, bone contusion, or evidence of osteonecrosis. Dictated by: Dictated on workstation # [id number]
== END ==
LOC: RAD 12:30
PROVIDERS: ATTEND Physician Assistant
DX: M25.511 Pain in right shoulder (principal); M62.81 Muscle weakness (generalized); F41.9 Anxiety disorder, unspecified; I50.9 Heart failure, unspecified; G47.00 Insomnia, unspecified; G44.209 Tension-type headache, unspecified, not intractable
CPT/HCPCS: 73221

== ENCOUNTER → 2022-01-31 | Outpatient (CLI) | payer BC, OTHER ==
[~2022-01-31] MED LIST changes: +CYCL10TA25 PO; -CYCL10TA9 PO
--- NOTE | 2022-02-03 12:17 | Diagnostic Imaging Report ---
INDICATION: Routine screening. COMPARISON: 02/13/2017 and 01/18/2013. TECHNIQUE: 2D and 3D bilateral screening mammography was performed with CAD. FINDINGS: Scattered fibroglandular densities are identified bilaterally. Benign calcifications in both breasts are again noted. No mass or malignant-appearing microcalcifications are seen. The axillae are unremarkable. IMPRESSION: No mammographic features suspicious for malignancy are identified. ACR BI-RADS Category 2: Benign findings. Result letter will be mailed to the patient. Note: At least 10% of breast cancer is not imaged by mammography. Dictated by: Dictated on workstation # [id number]
== END ==
LOC: RAD 15:16
PROVIDERS: ATTEND Nurse Practitioner Family
DX: Z12.31 Encounter for screening mammogram for malignant neoplasm of breast (principal)
CPT/HCPCS: 77063; 77067

== ENCOUNTER 2022-11-21 10:58 | Emergency (ER) | payer OTHER ==
[~2022-11-21] VITALS: Ht 172.7 cm; Wt 81.6 kg
[2022-11-21 12:02] LABS: BILIRUBIN,URINE NEGATIVE (NEGATIVE); CLARITY,URINE CLOUDY; COLOR,URINE YELLOW; GLUCOSE, URINE (UA) NEGATIVE (NEGATIVE); KETONES,URINE NEGATIVE (NEGATIVE); LEUKOCYTE ESTERASE ,URINE 2+ (NEGATIVE); NITRITE,URINE NEGATIVE (NEGATIVE); PROTEIN,URINE TRACE (NEGATIVE)
[2022-11-21 12:09] LABS: AMORPHOUS SEDIMENT,UR FEW AMOR URATES /LPF; BACTERIA,URINE MODERATE /HPF; RBC,URINE 0-2 /HPF
--- NOTE | 2022-11-21 12:10 | ED GU-Female ---
General Chief Complaint: - Reproductive Stated Complaint: ABD PAIN Nursing Triage Note: PT AMBULATE TO ROOM 08 WITHOUT DIFFICULTY WITH C/O LOWER ABD/BLADDER PAIN AND DIFFICULTY URINATING SINCE THURSDAY. PT REPORTS FEELING CONSTANT NEED TO URINATE AND WHEN SHE DOES MINIMAL URINE IS RELEASED. Source: patient Exam Limitations: no limitations (CHANTEL OSMAN APRN) History of Present Illness Date Seen by Provider: Nov 21, 2022 Time Seen by Provider: 11:59 Initial Comments 52-year-old female presents to the ED with complaints of difficulty urinating for the last 2 days. States she constantly feels like she has to urinate, but when she goes to the restroom she only dribbles. States she drinks a lot of water. Denies burning with urination. Complains of some nausea, denies vomiting. Complains of suprapubic abdominal pain. Denies fevers, chest pain, shortness of air, diarrhea, constipation, flank pain. Last bowel movement was yesterday. She has had a hysterectomy. Past medical history includes diabetes, migraines, ADHD, hyperlipidemia, hypertension, anxiety/depression. Currently takes Mounjaro, Adderall, rosuvastatin, amitriptyline, topiramate, metoprolol, citalopram, and alprazolam as needed. (CHANTEL OSMAN APRN) Allergies and Home Medications Allergies Coded Allergies: procaine (Verified Allergy, Severe, UNABLE TO TAKE D/T VSD, 04/07/18) Patient Home Medication List Home Medication List Reviewed: Yes (CHANTEL OSMAN APRN) Alprazolam (Alprazolam) 0.5 Mg Tablet, 0.5 MG PO Q8H PRN for ANXIETY, (Reported) Entered as Reported by: PUSHPA AQUINO on 03/18/18 1039 Amitriptyline HCl (Amitriptyline HCl) 50 Mg Tablet, 50 MG PO HS, (Reported) Entered as Reported by: DEBO KERN on 02/22/19 1247 Atorvastatin Calcium (Atorvastatin Calcium) 20 Mg Tablet, 20 MG PO HS, (Reported) Entered as Reported by: DEBO KERN on 02/22/19 1247 Citalopram Hydrobromide (Celexa) 20 Mg Tablet, 20 MG PO DAILY, (Reported) Entered as Reported by: DEBO KERN on 10/15/20 1133 Metformin HCl (Metformin HCl) 500 Mg Tablet, 500 MG PO DAILY, (Reported) Entered as Reported by: DEBO KERN on 10/15/20 1133 Oxycodone HCl/Acetaminophen (Oxycodone-Acetaminophen 5-325) 1 Each Tablet, 1 EACH PO Q4H PRN for PAIN-SEVERE (8-10) Prescribed by: FRANKY BLACKMON on 10/17/20 1211 Sulfamethoxazole/Trimethoprim (Bactrim Ds Tablet) 1 Each Tablet, 1 EACH PO BID Prescribed by: Chantel Osman on 11/21/22 1222 Topiramate (Topiramate) 50 Mg Tablet, 50 MG PO BID, (Reported) Entered as Reported by: DEBO KERN on 10/15/20 1133 Review of Systems Review of Systems Constitutional: see HPI (CHANTEL OSMAN APRN) Past Wolsapl-Kckeud-Znjqck Hx Patient Social History Tobacco Use?: No Smoking Status: Never a Smoker Smokeless Tobacco Frequency: Never a User Use of E-Cig and/or Vaping dev: No Use of E-Cig and/or Vaping Bony: Never a User Substance use?: No Alcohol Use?: Yes Alcohol Frequency: Couple times a week Pt feels they are or have been: No (CHANTEL OSMAN APRN) Immunizations Up To Date Tetanus Booster (TDap): Unknown COVID19 Vaccine Executive Producer Promos: Mediasmart (CHANTEL OSMAN APRN) Seasonal Allergies Seasonal Allergies: No (CHANTEL OSMAN APRN) Past Medical History Surgeries: Yes (BREAST REDUCTION, DENTAL, D&C,) Appendectomy, Hysterectomy Respiratory: No Currently Using CPAP: No Currently Using BIPAP: No Cardiac: Yes ("HOLE IN HEART, VSD") Neurological: Yes Headaches /Migraines Reproductive Disorders: Yes (AUB) Female Reproductive Disorders: Menstrual Problems, 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 History: Hysterectomy Sexually Transmitted Disease: No HIV/AIDS: No Genitourinary: No Gastrointestinal: No Musculoskeletal: Yes (R shoulder) Endocrine: No (pre diabetes) HEENT: No Loss of Vision: Bilateral Hearing Impairment: Denies Cancer: No Psychosocial: Yes Anxiety Integumentary: No Blood Disorders: No Adverse Reaction/Blood Tranf: No (N/A) (CHANTEL OSMAN APRN) Family Medical History Cardiovascular disease 19 FATHER FH: skin cancer 19 MOTHER Hypertension 19 FATHER Myocardial infarction 19 FATHER Physical Exam Vital Signs Vital Signs - First Documented 11/21/22 11/21/22 11:42 12:33 Temp 36.4 Pulse 82 Resp 16 B/P (MAP) 169/106 (127) Pulse Ox 98 O2 Delivery Room Air (GABRIELA MURO MD) Vital Signs Capillary Refill : Less Than 3 Seconds (CHANTEL OSMAN APRN) Height, Weight, BMI Height: 5'7.00" Weight: 221lbs. 0.0oz. [id number]; 27.00 BMI Method:Stated General Appearance: WD/WN, no apparent distress Neck: supple, normal inspection Cardiovascular: regular rate, rhythm, no edema, no gallop, no JVD, no murmur Respiratory: lungs clear, normal breath sounds, no respiratory distress, no accessory muscle use Gastrointestinal: normal bowel sounds, non tender, soft, no organomegaly, no pulsatile mass Extremities: normal range of motion, normal inspection Neurologic/Psychiatric: alert, normal mood/affect, oriented x 3 Skin: normal color, warm/dry (CHANTEL OSMAN APRN) Progress/Results/Core Measures Suspected Sepsis SIRS Temperature: Pulse: 82 Respiratory Rate: 16 Blood Pressure 169 /106 Mean: 127 (CHANTEL OSMAN APRN) Results/Orders Lab Results Laboratory Tests Test 11/21/22 11:43 Range/Units Urine Color YELLOW Urine Clarity CLOUDY Urine pH 6.0 5-9 Urine Specific [place] >=1.030 1.016-1.022 Urine Protein TRACE H NEGATIVE Urine Glucose (UA) NEGATIVE NEGATIVE Urine Ketones NEGATIVE NEGATIVE Urine Nitrite NEGATIVE NEGATIVE Urine Bilirubin NEGATIVE NEGATIVE Urine Urobilinogen 1.0 < = 1.0 MG/DL Urine Leukocyte Esterase 2+ H NEGATIVE Urine RBC (Auto) TRACE-I H NEGATIVE Urine RBC 0-2 /HPF Urine WBC 10-25 H /HPF Urine Squamous Epithelial Cells 10-25 H /HPF Urine Crystals PRESENT H /LPF Urine Amorphous Sediment FEW BALWINDER URATES H /LPF Urine Bacteria MODERATE H /HPF Urine Casts NONE /LPF Urine Mucus LARGE H /LPF Urine Culture Indicated YES (GABRIELA MURO MD) My Orders Orders - GABRIELA MURO MD Ua Culture If Indicated (11/21/22 11:43) Urine Culture (11/21/22 11:43) (GABRIELA MURO MD) Vital Signs/I&O Capillary Refill : Less Than 3 Seconds (CHANTEL OSMAN APRN) Blood Pressure Mean: 127 Progress Note #1: Time: 12:09 Progress Note Patient seen and evaluated, resting comfortably in bed, no acute distress. Based on exam and symptoms, concern for UTI. UA with culture ordered. Progress Note #2: Time: 12:20 Progress Note UA positive for 2+ leuks, trace RBC, 10-25 WBC, 10-25 squamous epithelial cells, moderate bacteria. Will treat for urinary tract infection. Considered labs, deferred due to infection shown on urinalysis which likely explains symptoms. Patient given discharge instructions and return precautions. (CHANTEL OSMAN APRN) Departure Impression Primary Impression: Urinary tract infection Qualified Codes: N30.01 - Acute cystitis with hematuria Disposition: HOME, SELF-CARE Condition: Stable Departure-Patient Inst. Decision time for Depature: 12:20 (CHANTEL OSMAN APRN) Referrals: TERESSA ROJAS MD (PCP/Family) Primary Care Physician Patient Instructions: Urinary Tract Infection, Adult (DC) Add. Discharge Instructions: Complete antibiotic as prescribed, do not stop even if you begin to feel better. Return for high fevers, chills, lower back pain, persistent vomiting, you stop urinating, blood in your urine or any other new, concerning, or worsening symptoms. Follow-up with your primary care provider. All discharge instructions reviewed with patient and/or family. Voiced understanding. Scripts Sulfamethoxazole/Trimethoprim (Bactrim Ds Tablet) 1 Each Tablet 1 EACH PO BID for 7 Days, #14 TAB 0 Refills Prov: CHANTEL OSMAN APRN 11/21/22 ATTENDING PHYSICIAN NOTE: I was physically present as attending physician in the emergency department during the care of this patient, but I was not directly involved in the decision making or delivery of care for this patient. (GABRIELA MURO MD) CHANTEL OSMAN APRN Nov 21, 2022 12:10 GABRIELA MURO MD Nov 22, 2022 22:39
[2022-11-21] MEDS ORDERED: SULF1TAB38 PO (12:22)
[2022-11-21] MEDS ORDERED: TRIM/SULFAMETH 160/800 (SEPTRA DS) TAB PO ONE (12:30)
[2022-11-21 12:33] VITALS: BP 141/84
== END 2022-11-21 12:33 | disposition home or self-care (01) ==
LOC: EDUNIT# 10:58 → ER 11:00
DX: N39.0 Urinary tract infection, site not specified (principal); E11.9 Type 2 diabetes mellitus without complications; F90.9 Attention-deficit hyperactivity disorder, unspecified type; E78.5 Hyperlipidemia, unspecified; I10 Essential (primary) hypertension; F32.A Depression, unspecified; G43.909 Migraine, unspecified, not intractable, without status migrainosus; Z90.710 Acquired absence of both cervix and uterus; Z79.84 Long term (current) use of oral hypoglycemic drugs; Z79.899 Other long term (current) drug therapy; Z79.02 Long term (current) use of antithrombotics/antiplatelets; Z79.811 Long term (current) use of aromatase inhibitors
CPT/HCPCS: 81000; 87088; 99283

== ENCOUNTER 2023-05-27 05:39 | Outpatient (CLI) | payer OTHER ==
[~2023-05-27] VITALS: Ht 170.2 cm; Wt 76.2 kg
[~2023-05-27 05:39] MED LIST changes: +SULF1TAB38 PO; +TOPI-241 PO; -TOPI50TA13 PO
[2023-05-27] MEDS ORDERED: TIRZ5PEN SQ (13:35)
[2023-05-27] MEDS ORDERED: MTP25TSR PO (13:35)
[2023-05-27] MEDS ORDERED: ONDA-105 PO (13:35)
[2023-05-27] MEDS ORDERED: ROSU20TA73 PO (13:35)
== END 2023-05-27 13:41 | disposition home or self-care (01) ==
LOC: PREOP 05:39
PROVIDERS: ATTEND Internal Medicine
DX: Z01.818 Encounter for other preprocedural examination (principal)

== ENCOUNTER 2023-06-05 07:32 | Day surgery (SDC) | payer OTHER ==
--- NOTE | 2023-05-22 08:27 | HISTORY AND PHYSICAL ---
COLONOSCOPY HISTORY AND PHYSICAL HISTORY OF PRESENT ILLNESS: The patient is a 53-year-old white female being referred for her first screening colonoscopy. She is deemed to be of average risk because she is not aware of any family history for colon cancer or colon polyps. She denies bright red blood per rectum, melena or change in bowel habits. PAST MEDICAL HISTORY: Significant for type 2 diabetes and hyperlipidemia as well as ADD. She reports, as I recall, 50-pound weight loss over the past 8 months on Mounjaro 5 mg daily, which has normalized her blood sugar with A1c in the upper 4 range. She reports no complications from the medication. PAST SURGICAL HISTORY: She has a total abdominal hysterectomy for benign reasons and right labral tear repair and rotator cuff repair a number of years ago and many years ago had a D and C. FAMILY HISTORY: Father living at the age of 71 with history of small cell lung cancer, was a smoker, also has a history of basal cell skin cancer. Mother living at the age of 73 with coronary artery disease and has required pacemaker placement. No GI tract malignancy reported. REVIEW OF SYSTEMS: CONSTITUTIONAL: Denies night sweats, chills, fever or change in weight. PULMONARY: Denies cough, wheezing or shortness of breath. CARDIOVASCULAR: Denies chest pain, orthopnea, PND, or pedal edema. GASTROINTESTINAL: As noted in the HPI. SOCIAL HISTORY: The patient works at the [employer]. No past smoking history. No significant alcohol intake history. PHYSICAL EXAMINATION: GENERAL: Reveals a pleasant white female who appears to be in no acute distress. VITAL SIGNS: Weight 172 pounds, blood pressure 120/70. HEENT: Unremarkable. Sclerae nonicteric. CHEST: Clear to auscultation. CARDIOVASCULAR: Reveals a regular rate and rhythm without murmur, S3, or S4. The patient reportedly has a VSD, but I was unable to appreciate heart murmur attention to the left and right lower sternal border area. ABDOMEN: Soft, supple without mass, organomegaly, or tenderness. EXTREMITIES: No cyanosis, clubbing or edema. ASSESSMENT AND PLAN: The patient is being set up for screening colonoscopy. Prep instructions were given and questions were answered. I did advise as she is on Mounjaro, using Zofran half an hour before each prep dose. I thank you for the referral of this pleasant lady. Job ID: [id number] DocumentID: [id number] Dictated Date: 05/20/2023 17:08:26 Institutional Research Director Date: 05/20/2023 17:22:00 Dictated By: EROS ALICIA MD [facility]
[~2023-06-05] VITALS: Ht 170.8 cm; Wt 81.6 kg
[~2023-06-05 07:32] MED LIST changes: +MTP25TSR PO; +ONDA-105 PO; +ROSU20TA73 PO; +TIRZ5PEN SQ
[2023-06-05] MEDS ORDERED: LACTATED RINGERS 1,000 ML 1,000 ML IV STA (07:39)
--- NOTE | 2023-06-05 07:52 | Pre-Op Note & Conscious Sedat ---
Pre-Operative Progress Note Date H&P Reviewed: Jun 05, 2023 Time H&P Reviewed: 07:51 History & Physical: H&P Reviewed, Patient Examed, No changes noted Pre-Op Diagnosis: screening Moderate Sedation PreProcedure ASA Score 2 Airway Lungs Heart ASA score ASA 1: a normal healthy patient ASA 2: a patient with a mild systemic disease (mid diabetes, controlled hypertension, obesity ASA 3: a patient with a severe systemic disease that limits activity (angina, COPD, prior Myocardial infarction) ASA 4: a patient with an incapacitating disease that is a constant threat to life (CHF, renal failure) ASA 5: a moribund patient not expected to survive 24 hrs. (ruptured aneurysm) ASA 6: a declared brain- patient whose organs are being harvested. For emergent operations, add the letter E after the classification Mallampati Classification Grade 2 Sedation Plan Analgesia, Amnesia, Plan communicated to team members, Discussed options with patient/fam, Discussed risks with patient/fam The patient is an appropriate candidate to undergo the planned procedure, sedation, and anesthesia. The patient immediately re-assessed prior to indication. EROS ALICIA MD Jun 05, 2023 07:52
[2023-06-05 07:55] VITALS: BP 121/80
[2023-06-05] MEDS ORDERED: proPOfol INJECTION 200 MG/20 ML VIAL IV ONE (09:20)
[2023-06-05 09:25] VITALS: BP 144/61
--- NOTE | 2023-06-05 09:26 | Progress Note-Post Operative ---
Post-Procedure Note Physician (s)/Help Desk Agent (s) Physician ERSO ALICIA MD Pre-Procedure Diagnosis Pre-Procedure Diagnosis: screening Post-Procedure Diagnosis Post-operative diagnosis: Prior to undergoing colonoscopy digital rectal evaluation was performed. Anal sphincter tone was normal and the perianal reflex intact. No abnormalities noted initial inspection anal canal or distal rectal vault. The colonoscope was then inserted into the rectum and direct physician advanced the cecum. The cecum was identified by Identification of the ileocecal valve and cecal strap. Photographic dictation was obtained. Quality prep was poor would estimate that 5% of the colon was poorly visualized due to retained stool. Findings: There are no evidence for internal or external hemorrhoids. The rectum was unremarkable several small sigmoid diverticulum were present with evidence of diverticulitis. The descending colon splenic flexure transverse colon hepatic flexure ascending colon and cecum were otherwise unremarkable. Assessment: Mild diverticular disease confined to the sigmoid colon was present with no evidence for neoplasia. Prep quality however was poor and would estimate that 5% of the colon was not visualized due to retained stool this was discussed with the patient. As long as her continues to be no family history for colon cancer would advocate repeat screening colonoscopy in 5 years due to suboptimal prep quality. CC: Dr. Bianca ROJAS MD. EROS ALICIA MD Jun 05, 2023 09:26
[2023-06-05 09:35] VITALS: BP 144/61
[2023-06-05 09:47] VITALS: BP 144/61
--- NOTE | 2023-06-05 10:11 | Anesthesia-General Post-Op ---
MAC Patient Condition Mental Status/LOC: Same as Preop Cardiovascular: Satisfactory Nausea/Vomiting: Absent Respiratory: Satisfactory Pain: Controlled Complications: Absent Post Op Complications Complications None Follow Up Care/Instructions Patient Instructions None needed. Anesthesiology Discharge Order Discharge Order Patient was doing well after the procedure with no complaints, stable vital signs, no apparent adverse anesthesia problems. No complications reported per nursing. DEUCE CHARLES DO Jun 05, 2023 10:11
== END 2023-06-05 10:05 | disposition home or self-care (01) ==
LOC: ENDO 07:32
PROVIDERS: ATTEND Internal Medicine
DX: Z12.11 Encounter for screening for malignant neoplasm of colon (principal); K57.30 Diverticulosis of large intestine without perforation or abscess without bleeding

== ENCOUNTER 2023-06-24 18:49 | Emergency (ER) | payer OTHER ==
[~2023-06-24] VITALS: Ht 170.2 cm; Wt 79.0 kg
[2023-06-24 19:01] VITALS: BP 134/97
--- NOTE | 2023-06-24 20:10 | Diagnostic Imaging Report ---
PROCEDURE: CT head and CT cervical spine without contrast. TECHNIQUE: Multiple contiguous axial images were obtained through the brain and cervical spine without the use of intravenous contrast. Sagittal and coronal reformations through the cervical spine were then performed. Auto Exposure Controls were utilized during the CT exam to meet ALARA standards for radiation dose reduction. INDICATION: Fall. Head and neck pain. No comparison available. FINDINGS: CT of the head demonstrates no evidence of acute intracranial hemorrhage. There is no abnormal extra-axial collection. There is no mass effect or shift. There is no hydrocephalus. There is no territorial loss of bertrand-white differentiation or evidence of edema. The basilar cisterns are patent. The posterior fossa demonstrates no acute process. The mastoid air cells are clear. The paranasal sinuses are clear. The orbital contents are normal. There is no calvarial fracture. Cervical spine demonstrates straightening of the cervical lordosis. Alignment is normal. There are normal relationships of the craniocervical junction. There are normal relationships of the lateral masses of C1 and C2. The facets are normally aligned. There is no facet joint or disc space widening. The vertebral body heights are maintained. There are mild degenerative endplate spurs at the C5-C6 and C6-C7 levels. There are no CT findings of an acute cervical spine fracture. The lung apices are clear. Soft tissues of the neck demonstrate some mildly prominent cervical lymph nodes bilaterally. The largest is a right level 3 lymph node with a short axis of 9 mm. There is appropriate symmetry of the aerodigestive tract. IMPRESSION: 1. No CT evidence of an acute intracranial abnormality. 2. No calvarial fracture 3. Mild degenerative features within the cervical spine. There are no findings of fracture or traumatic malalignment. 4. Mildly prominent bilateral cervical lymph nodes. These most likely are reactive in nature. Consider interval follow-up. Dictated by: Dictated on workstation # [id number]
--- NOTE | 2023-06-24 20:40 | Diagnostic Imaging Report ---
INDICATION: Right shoulder pain. Fall. COMPARISON: 10/11/2020. FINDINGS: There are surgical changes related to a prior rotator cuff repair. There is no glenohumeral dislocation. AC joint alignment is normal. There is no proximal humeral fracture. No clavicular or scapular fracture is evident. The lungs are clear without identified pneumothorax or rib fracture. IMPRESSION: No finding of right glenohumeral joint dislocation or AC joint malalignment. There is no acute fracture. There has been prior rotator cuff surgery. Dictated by: Dictated on workstation # [id number]
--- NOTE | 2023-06-24 20:50 | ED Head Injury ---
General Chief Complaint: Head/Cervical Problems Stated Complaint: FALL, HURT HEAD AND NECK, RT SHOULDER Nursing Triage Note: PT AMB TO RM 7 W C/O HEAD PAIN, R SHOULDER PAIN, DAY, AND DIZZINESS R/T FALLING OFF OF RUNNING BOARD OF TRUCK YESTERDAY. PT REPORTS HITTING HEAD AND R SHOULDER, DENIES LOC. PT A&OX4. PT ADVISES [facility] [place] AND WAS ADVISED TO COME TO ED FOR FURTHER EVALUATION AND TX. Source: patient Exam Limitations: no limitations (YUNG TATE) History of Present Illness Date Seen by Provider: Jun 24, 2023 Time Seen by Provider: 20:46 Initial Comments Patient is a 53-year-old female presents ED with right-sided hip pain, right shoulder pain, headache dizziness and lightheadedness. Patient fell off her son's running board of his truck yesterday. States the running board was wet. She attempted to get up into the truck she slipped and fell landing on her right side hitting the right side of her head and shoulder. No loss of consciousness or on blood thinners. She does report headache, dizziness. No vomiting, visual changes, unilateral muscle weakness or sensory changes. She reports pain to the right shoulder with any type of movement. She has had a previous rotator cuff surgery. [facility] was [facility] to ED for further evaluation. She states she has been taking harf-koc-lcixlcu pain medication with some improvement. She does report some neck tightness pain with movement. She has no mid to lower back pain, chest pain, abdominal pain, vomiting, diarrhea, shortness of breath (YUNG TATE) Allergies and Home Medications Allergies Coded Allergies: procaine (Verified Allergy, Severe, UNABLE TO TAKE D/T [facility], 04/07/18) Patient Home Medication List Home Medication List Reviewed: Yes (YUNG TATE) Alprazolam (Alprazolam) 0.5 Mg Tablet, 0.5 MG PO Q8H PRN for ANXIETY, (Reported) Entered as Reported by: PUSHPA AQUINO on 03/18/18 1039 Amitriptyline HCl (Amitriptyline HCl) 50 Mg Tablet, 50 MG PO HS, (Reported) Entered as Reported by: DEBO KERN on 02/22/19 1247 Atorvastatin Calcium (Atorvastatin Calcium) 20 Mg Tablet, 20 MG PO HS, (Reported) Entered as Reported by: DEBO KERN on 02/22/19 1247 Citalopram Hydrobromide (Celexa) 20 Mg Tablet, 20 MG PO DAILY, (Reported) Entered as Reported by: DEBO KERN on 10/15/20 1133 Metoprolol Succinate (Metoprolol Succinate) 25 Mg Tab.er.24h, 25 MG PO DAILY, (Reported) Entered as Reported by: WANDY ROLON on 05/27/23 1335 Ondansetron HCl (Ondansetron HCl) 4 Mg Tablet, 4 MG PO Q4H PRN for NAUSEA/VOMITING, (Reported) Entered as Reported by: WANDY ROLON on 05/27/23 1335 Rosuvastatin Calcium (Rosuvastatin Calcium) 20 Mg Tablet, 20 MG PO DAILY, (Reported) Entered as Reported by: WANDY ROLON on 05/27/23 1335 Tirzepatide (Mounjaro) 5 Mg/0.5 Ml Pen.injctr, 5 MG SQ WEEK, (Reported) Entered as Reported by: WANDY ROLON on 05/27/23 1335 Topiramate (Topiramate) 50 Mg Tablet, 50 MG PO BID, (Reported) Entered as Reported by: DEBO KERN on 10/15/20 1133 Review of Systems Review of Systems Constitutional: No chills, No diaphoresis, No malaise, No weakness Eyes: Denies Blurred Vision, Denies Drainage, Denies Decreased Acuity Ears, Nose, Mouth, Throat: denies ear pain, denies ear discharge Respiratory: No cough, No dyspnea on exertion Cardiovascular: No chest pain Gastrointestinal: No abdominal pain, No diarrhea, No nausea Genitourinary: No decreased output, No discharge Musculoskeletal: joint pain, joint swelling, muscle pain, muscle stiffness Skin: No change in color (YUNG TATE) All Other Systems Reviewed Negative Unless Noted: Yes (YUNG TATE) Past Uspnvoi-Gmwwlq-Lrjupx Hx Patient Social History Tobacco Use?: No Use of E-Cig and/or Vaping dev: No Substance use?: No Alcohol Use?: No (YUNG TATE) Immunizations Up To Date Tetanus Booster (TDap): Unknown (YUNG TATE) Seasonal Allergies Seasonal Allergies: No (YUNG TATE) Past Medical History Surgeries: Yes (BREAST REDUCTION, DENTAL, D&C, ROTATOR CUFF) Appendectomy, Hysterectomy, Orthopedic Respiratory: No Currently Using CPAP: No Currently Using BIPAP: No Cardiac: Yes ("HOLE IN HEART, VSD") High Cholesterol, Hypertension Neurological: Yes Headaches /Migraines Reproductive Disorders: Yes (AUB) Female Reproductive Disorders: Menstrual Problems, Ovarian Cyst [employer] History: Hysterectomy Sexually Transmitted Disease: No HIV/AIDS: No Genitourinary: No Gastrointestinal: No Musculoskeletal: Yes (R shoulder) Endocrine: No (pre diabetes) HEENT: No Loss of Vision: Bilateral Hearing Impairment: Denies Cancer: No Psychosocial: Yes Anxiety Integumentary: No Blood Disorders: No Adverse Reaction/Blood Tranf: No (N/A) (YUNG TATE) Family Medical History Cardiovascular disease 19 FATHER FH: skin cancer 19 MOTHER Hypertension 19 FATHER Myocardial infarction 19 FATHER Physical Exam Vital Signs Vital Signs - First Documented 06/24/23 19:01 Temp 36.4 Pulse 83 Resp 18 B/P (MAP) 134/97 (109) Pulse Ox 100 O2 Delivery Room Air (DIANA,YESSICA K DO) Vital Signs Capillary Refill : Less Than 3 Seconds (YUNG TATE) Height, Weight, BMI Height: 5'7.00" Weight: 221lbs. 0.0oz. 100.395811ot; 27.00 BMI Method:Stated General Appearance: WD/WN, no apparent distress HEENT: PERRL/EOMI, normal ENT inspection, TMs normal, pharynx normal, other (Right-sided scalp tenderness. Mild contusion without crepitus or step-off. No active bleeding) Neck: other (No cervical midline tenderness. Bilateral cervical paraspinal muscle tenderness worse on the right. Pain with rotational movement. Flexion extension intact. No swelling or bruising. No bruit) Cardiovascular: regular rate, rhythm, no edema, no gallop, no JVD Respiratory: chest non-tender, lungs clear, normal breath sounds, no accessory muscle use Gastrointestinal: normal bowel sounds, non tender, soft Back: normal inspection, no CVA tenderness, no vertebral tenderness Extremities: other (Tenderness to the right scapula, right clavicle, right lateral shoulder. Limited active range of motion. Passive range of motion to about 90 degrees with pain. Neurovascular intact. Flexion extension at the elbow intact. On Site Nurse strength 5 out of 5. No crepitus or step-off.) Psychiatric: alert, depressed affect Crainal Nerves: normal hearing, normal speech, PERRL Coordination/Gait: normal finger to nose, normal gait Motor/Sensory: no motor deficit, no sensory deficit Skin: normal color, warm/dry (YUNG TATE) Progress/Results/Core Measures Results/Orders Vital Signs/I&O 06/24/23 19:01 Temp 36.4 Pulse 83 Resp 18 B/P (MAP) 134/97 (109) Pulse Ox 100 O2 Delivery Room Air (YESSICA ORTIZ DO) Blood Pressure Mean: 109 Departure Communication (PCP) Patient with a mechanical fall yesterday. Hit the right side of her head right shoulder. No loss of consciousness or on blood thinners. GCS 15. Alert and orient x4. Patient without any neurological red flag findings. Pain with any type of movement the right shoulder and limited active and passive range of motion. Previous rotator cuff injury. Neurovascular intact. Neuro exam unremarkable. Tenderness to right scalp. No cervical thoracic or lumbar midline tenderness but does tenderness to the right cervical paraspinal. Not concern for spinal cord injury. Did order CT scan of the head and cervical spine and x-ray the right shoulder and clavicle. X-ray of the right shoulder and clavicle was negative for fracture. CT scan of the head and cervical spine was negative for intracranial bleed or fracture. She refused anything for pain. Discussed results with patient. She refused anything for pain at home. Recommend ice for the next 2 or 3 days. Alternate Tylenol ibuprofen. Suggest following up with orthopedic in 1 to 2 weeks for reevaluation of the right shoulder. No evidence of concussion-like symptoms. She does not appear toxic or septic. This appears to be muscle contusion, bone bruise. discussed with patient that she may have some soreness for the next 1 to 2 weeks. If any worsening symptoms such as severe head pain, difficulty breathing, any focal neural deficits to return back to ED. (YUNG TATE) Impression Primary Impression: Head pain Additional Impressions: Neck strain Shoulder pain Disposition: 01 HOME, SELF-CARE Condition: Stable Departure-Patient Inst. Decision time for Depature: 20:48 (YUNG TATE) Referrals: TERESSA ROJAS MD (PCP/Family) Primary Care Physician GERSON VALDEZ MD Patient Instructions: Muscle Strain ED Add. Discharge Instructions: Recommend alternating Tylenol ibuprofen. Ice to help with swelling. Work on range of motion. If continued pain over the next 1 to 2 weeks orthopedic outpatient follow-up. If any worsening symptoms return back to ED. All discharge instructions reviewed with patient and/or family. Voiced understanding. ATTENDING PHYSICIAN NOTE: I WAS PHYSICALLY PRESENT ER PHYSICIAN, BUT I WAS NOT INVOLVED IN ANY DECISION MAKING OR ANY CARE OF THIS PATIENT AND I AM NOT COLLABORATING PHYSICIAN. (YESSICA ORTIZ DO) YUNG TATE Jun 24, 2023 20:50 YESSICA ORTIZ DO Jun 24, 2023 22:23
--- NOTE | 2023-06-24 20:57 | Diagnostic Imaging Report ---
INDICATION: Right shoulder pain. COMPARISON: Shoulder radiographs from same day. FINDINGS: AC joint alignment and sternoclavicular joint alignment are appropriate. There is no evidence of a clavicular fracture. IMPRESSION: 1. Negative radiographs of the right clavicle. Dictated by: Dictated on workstation # [id number]
== END 2023-06-24 20:54 | disposition home or self-care (01) ==
LOC: EDUNIT# 18:49 → ER 18:51
DX: S16.1XXA Strain of muscle, fascia and tendon at neck level, initial encounter (principal); S00.03XA Contusion of scalp, initial encounter; M25.511 Pain in right shoulder; W01.198A Fall on same level from slipping, tripping and stumbling with subsequent striking against other object, initial encounter; Y92.812 Truck as the place of occurrence of the external cause
CPT/HCPCS: 70450; 72125; 73000; 73030